=== PATIENT | female | born 1970 | race Caucasian/White ===

== ENCOUNTER 2016-04-01 11:35 | Inpatient (IN) | payer OTHER, MEDICARE ==
[~2016-04-01] VITALS: Ht 162.6 cm; Wt 68.0 kg
[2016-04-01] VITALS (7 sets, daily range): BP systolic 114–145; BP diastolic 57–87; PULSE 82–122; RESP 12–19; TEMP 97.6–102.2; O2SAT 94–100
[~2016-04-01 11:35] MED LIST: BACT800T5 PO; CEPH500 PO; HYDR-3533 PO; VENL75 PO
[2016-04-01] MEDS ORDERED: VANCOMYCIN INJ 1,000 MG in SODIUM CHLOR 0.9% 250 ML INJ 250 ML IV ONE (13:15)
--- NOTE | 2016-04-01 13:24 | PD ---
HPI Chief Complaint: Fever Time Seen by Provider: 12:57 Travel History International Travel<30 days: No Contact w/Intl Traveler<30days: No Traveled to known affect area: No History of Present Illness HPI The patient was seen and examined in the presence of the nurse. This patient injects meth into her arms and hands for the last few months. She injected into her right hand a few days ago and has become hot and red and swollen and painful. She's developed fever. Severity is moderate. No alleviating factors. Duration 2 days. PFSH Past Medical History Asthma: Yes Depression: Yes Diminished Hearing: No Hypertension: Yes Musculoskeletal: Yes (CHRONIC NECK AND BACK PAIN) Neurologic: Yes (neuropathy) Immunizations Current: Yes ?: Not LMP: 04/01/16 Social History Alcohol Use: No Tobacco Use: Yes (03/31 ppd) Substance Use: Yes (iv dilaudid and methamphetamine) Allergies-Medications (Allergen,Severity, Reaction): Coded Allergies: Penicillin (Verified Allergy, Severe, 04/01/16) Uncoded Allergies: chemical allergy (Allergy, Severe, anaphalactic, 09/27/12) Reported Meds & Prescriptions Reported Meds & Active Scripts Active No Active Prescriptions or Reported Medications Review of Systems General / Constitutional: Positive: Fever Eyes: No: Visual changes HENT: No: Headaches Cardiovascular: Positive: Edema, No: Chest Pain or Discomfort Respiratory: No: Shortness of Breath Gastrointestinal: No: Abdominal Pain Genitourinary: No: Dysuria Musculoskeletal: Positive: Edema, Pain Skin: No Rash Neurologic: No: Weakness Psychiatric: No: Depression Endocrine: No: Polydipsia Hematologic/Lymphatic: No: Easy Bruising Physical Exam Narrative GENERAL: Well-nourished, well-developed patient with right hand infection. SKIN: Warm and dry. HEAD: Atraumatic. Normocephalic. EYES: Pupils equal and round. No scleral icterus. No injection or drainage. ENT: No nasal bleeding or discharge. Mucous membranes pink and moist. NECK: Trachea midline. No JVD. CARDIOVASCULAR: Regular rate and rhythm. No murmur appreciated. RESPIRATORY: No accessory muscle use. Clear to auscultation. Breath sounds equal bilaterally. GASTROINTESTINAL: Abdomen soft, non-tender, nondistended. Hepatic and splenic margins not palpable. MUSCULOSKELETAL: No clubbing. No cyanosis. She has diffuse swelling of the right hand. There is pain with passive and active flexion and extension of all 5 fingers. No drainage. Pulse and sensation and cap refill are intact. No and is tender. It is erythematous and warm. NEUROLOGICAL: Awake and alert. No obvious cranial nerve deficits. Motor grossly within normal limits. Normal speech. PSYCHIATRIC: Appropriate mood and affect; insight and judgment normal. Data Data Last Documented VS Vital Signs Date Time Temp Pulse Resp B/P Pulse Ox O2 Delivery O2 Flow Rate FiO2 04/01/16 14:15 99.2 96 18 145/87 100 Room Air Orders Complete Blood Count With Diff (04/01/16 13:09) Comprehensive Metabolic Panel (04/01/16 13:09) Prothrombin Time / Inr (Pt) (04/01/16 13:09) Act Partial Throm Time (Ptt) (04/01/16 13:09) Blood Culture (04/01/16 13:09) Blood Glucose (04/01/16 13:09) Ecg Monitoring (04/01/16 13:09) Iv Access Insert/Monitor (04/01/16 13:09) Oximetry (04/01/16 13:09) Oxygen Administration (04/01/16 13:09) Vancomycin Inj (Vancomycin Inj) (04/01/16 13:15) Acetaminophen Supp (Tylenol Supp) (04/01/16 14:45) Acetaminophen Supp (Tylenol Supp) (04/01/16 14:45) Us Arm Soft Tissue (04/01/16 ) Admit Order (Ed Use Only) (04/01/16 15:24) Labs Laboratory Tests Test 04/01/16 13:25 White Blood Count 13.1 TH/MM3 Red Blood Count 5.28 MIL/MM3 Hemoglobin 9.4 GM/DL Hematocrit 30.6 % Mean Corpuscular Volume 57.9 FL Mean Corpuscular Hemoglobin 17.9 PG Mean Corpuscular Hemoglobin 30.9 % Concent Red Cell Distribution Width 19.1 % Platelet Count 423 TH/MM3 Mean Platelet Volume 8.6 FL Neutrophils (%) (Auto) 83.7 % Lymphocytes (%) (Auto) 9.0 % Monocytes (%) (Auto) 6.9 % Eosinophils (%) (Auto) 0.1 % Basophils (%) (Auto) 0.3 % Neutrophils # (Auto) 11.0 TH/MM3 Lymphocytes # (Auto) 1.2 TH/MM3 Monocytes # (Auto) 0.9 TH/MM3 Eosinophils # (Auto) 0.0 TH/MM3 Basophils # (Auto) 0.0 TH/MM3 CBC Comment AUTO DIFF Differential Comment AUTO DIFF CONFIRMED Prothrombin Time 11.0 SEC Prothromb Time International 1.0 RATIO Ratio Activated Partial 28.5 SEC Thromboplast Time Sodium Level 133 MEQ/L Potassium Level 3.8 MEQ/L Chloride Level 98 MEQ/L Carbon Dioxide Level 26.2 MEQ/L Anion Gap 9 MEQ/L Blood Urea Nitrogen 14 MG/DL Creatinine 0.81 MG/DL Estimat Glomerular Filtration 77 ML/MIN Rate Random Glucose 78 MG/DL Calcium Level 8.9 MG/DL Total Bilirubin 0.7 MG/DL Aspartate Amino Transf 16 U/L (AST/SGOT) Alanine Aminotransferase 35 U/L (ALT/SGPT) Alkaline Phosphatase 111 U/L Total Protein 8.9 GM/DL Albumin 2.9 GM/DL MDM Medical Decision Making Medical Screen Exam Complete: Yes Emergency Medical Condition: Yes Medical Record Reviewed: Yes Differential Diagnosis Abscess, cellulitis, tenosynovitis Narrative Course I have reviewed the patient's electronic medical record. IV placed I gave her 1 g IV vancomycin after blood cultures were obtained 2 CBC shows minor leukocytosis and minor anemia Metabolic profile is normal LFTs are normal Coagulation studies are normal I gave her Tylenol suppositories, keeping her nothing by mouth until hand surgery evaluation I spoke with hand surgeon who recommended ultrasound be ordered to rule out fluid collection in the right hand and he will see her later today. I reviewed with hospitalist will admit Diagnosis Primary Impression: Infection of right hand Additional Impression: IV drug abuse Admitting Information Admitting Physician Requests: Admit Scripts No Active Prescriptions or Reported Meds Oral Stanley MD Apr 01, 2016 13:24
[2016-04-01 13:50] LABS: BASOPHIL % 0.3 % (0.0-2.0); EOSINOPHIL % 0.1 % (0.0-4.0); HEMATOCRIT 30.6 % (35.0-46.0); LYMPHOCYTE # 1.2 TH/MM3 (1.0-4.8); MEAN CELL VOLUME 57.9 FL (80.0-100.0); MEAN CORPUSCULAR HEMOGLOBIN 17.9 PG (27.0-34.0); MEAN CORPUSCULAR HGB CONC 30.9 % (32.0-36.0); MONO % 6.9 % (0.0-8.0); NEUT % 83.7 % (16.0-70.0); PLATELET COUNT 423 TH/MM3 (150-450); RED BLOOD COUNT 5.28 MIL/MM3 (4.00-5.30); RED CELL DISTRIBUTION WIDTH 19.1 % (11.6-17.2); WHITE BLOOD COUNT 13.1 TH/MM3 (4.0-11.0)
[2016-04-01 13:52] LABS: HEMO FLAGS AUTO DIFF
[2016-04-01 13:59] LABS: APTT (PATIENT) 28.5 SEC (24.3-30.1)
[2016-04-01 14:17] LABS: ALT (GPT) 35 U/L (10-53); ANION GAP 9 MEQ/L (5-15); AST (GOT) 16 U/L (15-37); BICARBONATE 26.2 MEQ/L (21.0-32.0); BLOOD UREA NITROGEN 14 MG/DL (7-18); CHLORIDE 98 MEQ/L (98-107); GLOMERULAR FILTRATION RATE 77 ML/MIN (>89); POTASSIUM 3.8 MEQ/L (3.5-5.1); SODIUM (NA) 133 MEQ/L (136-145)
[2016-04-01 14:20] LABS: ALKALINE PHOSPHATASE 111 U/L (45-117); TOTAL BILIRUBIN ADULT 0.7 MG/DL (0.2-1.0)
[2016-04-01 14:40] LABS: SCAN/DIFF AUTO DIFF CONFIRMED
[2016-04-01] MEDS ORDERED: ACETAMINOPHEN 325 MG SUPP RECTAL ONE (14:45)
[2016-04-01] MEDS ORDERED: ACETAMINOPHEN 650 MG SUPP RECTAL ONE (14:45)
--- NOTE | 2016-04-01 16:14 | RADRPT ---
EXAM DATE/TIME: 04/01/2016 15:23 [facility] COMPARISON: No previous studies available for comparison. INDICATIONS : IV drug use. Red, hot, and painful right hand. MEDICAL HISTORY : Chronic neck and back pain. Hypertension. IV drug use. SURGICAL HISTORY : No recorded surgical history. ENCOUNTER: Initial ACUITY: 3 days PAIN SCORE: 7/10 LOCATION: Right hand. AREA EVALUATED: Right hand. FINDINGS: There is edematous tissue in the right wrist and hand. No loculated fluid seen or drainable fluid col lections. CONCLUSION: 1. Soft tissue swelling and edematous changes at the back of the wrist and hand most characteristic o f a cellulitis. Oseas Lewis MD on April 01, 2016 at 16:10 Board Certified Radiologist. This report was verified electronically.
[2016-04-01] MEDS ORDERED: ONDANSETRON HCL 4 MG/2 ML VIAL IVP PRN (16:30)
[2016-04-01] MEDS ORDERED: SENNOSIDES 8.6 MG TAB PO PRN (16:30)
[2016-04-01] MEDS ORDERED: SODIUM CHLORIDE 0.9% FLUSH 5 ML FLUSH FLUSH PRN (16:30)
[2016-04-01] MEDS ORDERED: Vancomycin Consult Pharmacy 1 EA OTHER SCH (16:30)
[2016-04-01] MEDS ORDERED: ACETAMINOPHEN 325 MG TAB PO PRN ×2 (16:30)
[2016-04-01] MEDS ORDERED: NALOXONE HCL 0.4 MG/ML AMP IV PRN (16:30)
--- NOTE | 2016-04-01 16:40 | HHI.HP ---
[facility] Service [facility] Primary Care Physician Veronique Welsh MD Admission Diagnosis R hand infection Diagnoses: Chief Complaint: Right hand swelling and pain Travel History International Travel<30 Days: No Contact w/Intl Traveler <30 Da: No Traveled to Known Affected Are: No Sepsis Criteria SIRS Criteria (2 or more): Temp > 100.9 or < 96.8, Heart rate over 90 Sepsis Criteria (SIRS+source): Infect source susp/known Criteria Outcome: Meets sepsis criteria History of Present Illness The patient is a 45-year-old female with a past medical history of chronic pain who is presenting to the hospital with right hand pain and swelling. The patient says over the past 6 months she started taking up IV drug use, including IV meth and IV Dilaudid. She says she has been injecting her hands. She says the last time she used IV drugs was 4 days ago. Over the past few days she has noticed her right hand becoming more and more swollen, red and painful. She says the pain is a 10 out of 10 in severity and that's why she came to the hospital today. She has felt feverish associated with it. She denies any shortness of breath. She says she has made the decision to try to quit using IV drugs. She says she started using IV drugs 6 months ago and that was because she lost her house and had to deal with chronic pain amongst other issues. She says she was homeless for a while but is now staying at a friend's house, but that friend also uses drugs. The patient is inquiring if she can eat anything. The patient also mentions that she has had sores pop up all over her body since she started using IV meth. Review of Systems Constitutional: COMPLAINS OF: Fever, Chills Respiratory: DENIES: Shortness of breath Musculoskeletal: COMPLAINS OF: Joint pain, Joint Swelling, Neck pain Integumentary: COMPLAINS OF: Abnormal pigmentation, Rash Neurologic: COMPLAINS OF: Paresthesias Past Family Social History Past Medical History Cervical fusion IV drug use Allergies: Coded Allergies: Penicillin (Verified Allergy, Severe, 04/01/16) Uncoded Allergies: chemical allergy (Allergy, Severe, anaphalactic, 09/27/12) Family History Lung cancer Breast cancer Social History The patient is staying at a friend's house. She smokes 5-10 cigarettes daily. She does not drink alcohol. She injects IV meth and Dilaudid. Physical Exam Vital Signs Vital Signs Date Time Temp Pulse Resp B/P Pulse Ox O2 Delivery O2 Flow Rate FiO2 04/01/16 14:15 99.2 96 18 145/87 100 Room Air 04/01/16 11:37 102.2 122 12 125/78 99 Room Air Physical Exam GENERAL: Well-nourished, well-developed patient. SKIN: Warm and dry. Multiple sores on the upper and lower extremities. HEAD: Atraumatic. Normocephalic. EYES: Pupils equal and round. No scleral icterus. No injection or drainage. ENT: No nasal bleeding or discharge. Mucous membranes pink and moist. NECK: Trachea midline. No JVD. CARDIOVASCULAR: Regular rate and rhythm. Grade 1 systolic murmur appreciated. RESPIRATORY: No accessory muscle use. Clear to auscultation. Breath sounds equal bilaterally. GASTROINTESTINAL: Abdomen soft, non-tender, nondistended. Hepatic and splenic margins not palpable. MUSCULOSKELETAL: No clubbing. No cyanosis. She has diffuse swelling of the right hand. There is pain with passive and active flexion and extension of all 5 fingers. No drainage. Pulse and sensation and cap refill are intact. Her hand is quite tender. It is erythematous and warm. NEUROLOGICAL: Awake and alert. No obvious cranial nerve deficits. Motor grossly within normal limits. Normal speech. PSYCHIATRIC: Appropriate mood and affect; insight and judgment normal. Laboratory Laboratory Tests Test 04/01/16 13:25 White Blood Count 13.1 Red Blood Count 5.28 Hemoglobin 9.4 Hematocrit 30.6 Mean Corpuscular Volume 57.9 Mean Corpuscular Hemoglobin 17.9 Mean Corpuscular Hemoglobin 30.9 Concent Red Cell Distribution Width 19.1 Platelet Count 423 Mean Platelet Volume 8.6 Neutrophils (%) (Auto) 83.7 Lymphocytes (%) (Auto) 9.0 Monocytes (%) (Auto) 6.9 Eosinophils (%) (Auto) 0.1 Basophils (%) (Auto) 0.3 Neutrophils # (Auto) 11.0 Lymphocytes # (Auto) 1.2 Monocytes # (Auto) 0.9 Eosinophils # (Auto) 0.0 Basophils # (Auto) 0.0 CBC Comment AUTO DIFF Differential Comment AUTO DIFF CONFIRMED Prothrombin Time 11.0 Prothromb Time International 1.0 Ratio Activated Partial 28.5 Thromboplast Time Sodium Level 133 Potassium Level 3.8 Chloride Level 98 Carbon Dioxide Level 26.2 Anion Gap 9 Blood Urea Nitrogen 14 Creatinine 0.81 Estimat Glomerular Filtration 77 Rate Random Glucose 78 Calcium Level 8.9 Total Bilirubin 0.7 Aspartate Amino Transf 16 (AST/SGOT) Alanine Aminotransferase 35 (ALT/SGPT) Alkaline Phosphatase 111 Total Protein 8.9 Albumin 2.9 Date/Time Procedure Status Source Growth 04/01/16 13:30 Aerobic Blood Culture Received Blood Peripheral Pending 04/01/16 13:30 Anaerobic Blood Culture Received Blood Peripheral Pending Result Diagram: 04/01/16 1325 04/01/16 1325 Assessment and Plan Assessment and Plan Sepsis/ Right hand infection S/t injecting hand with IV drugs. Hand surgery was called by the ED physician. - continue vancomycin. - follow up with hand surgery. Pt is NPO at this time. - IVFs, pain control with a bowel regimen. - OT for range of motion. Microcytic anemia With elevated RDW. Likely iron deficiency anemia. - check B12, folate and iron studies. - Hemoccult requested. IV drug use For the past 6 months. The pt says she wishes to quit. - cessation instruction. - case manager specialist consult. HTN Likely s/t pain. - pain control. - Vasotec as needed. PPx: SCDs. Code Status Full. Discussed Condition With Pt, Dr. Stanley, nurse. Physician Certification 2 Midnight Certification Type: Admission for Inpatient Services Order for Inpatient Services The services are ordered in accordance with Medicare regulations or non- Medicare payer requirements, as applicable. In the case of services not specified as inpatient-only, they are appropriately provided as inpatient services in accordance with the 2-midnight benchmark. Estimated LOS (days): 2 days is the estimated time the patient will need to remain in the hospital, assuming treatment plan goals are met and no additional complications. Post-Hospital Plan: Home Reginald Houser DO Apr 01, 2016 16:40
[2016-04-01] MEDS ORDERED: ENALAPRILAT 1.25 MG/ML VIAL IV PUSH PRN (17:00)
[2016-04-01] MEDS: MORPHINE SULFATE 4 MG/ML INJ IV PRN (17:15)
[2016-04-01] MEDS: SODIUM CHLOR 0.9% 1000 ML INJ 1,000 ML IV SCH (17:15)
[2016-04-01] MEDS: DOCUSATE SODIUM 100 MG CAP PO SCH (18:00)
[2016-04-01 18:54] LABS: FERRITIN 18 NG/ML (8-252); TRANSFERRIN IRON PROFILE 338 MG/DL (200-360)
--- NOTE | 2016-04-01 18:56 | MB ---
cc: JANY CARMONA MD DATE OF CONSULTATION: 04/01/2016 REASON FOR CONSULTATION: Right hand and wrist infection. HISTORY OF PRESENT ILLNESS: The patient is a 45-year-old female who presented to the hospital with complaints of pain involving the right wrist and hand region of several days duration. The patient states she started using IV drugs several months ago and the last time she used was 4 days ago. The patient states over the past few days she has noticed worsening pain, swelling and limitation of range of motion of her fingers. Denies any numbness. Denies any chills or rigors. Denies any drainage. The patient also states after the start of IV antibiotics she has improvement in her pain symptoms. PAST MEDICAL HISTORY, PAST SURGICAL HISTORY: Noted. PHYSICAL EXAMINATION: The patient is alert, oriented x3. EXTREMITIES: Examination of right upper extremities reveals multiple band-aids, abrasions. There are multiple track wounds from previous IV drug abuse over the dorsal aspect of her hand and forearm. There is evidence of swelling over the dorsal aspect of the hand and wrist and tenderness noted over the dorsal aspect of the hand and wrist. There is also evidence of tenderness more so on the ulnar aspect of the dorsal hand and over the dorsal lateral aspect of the distal forearm. No evidence of fluctuation noted. Increased warmth noted. Range of motion of her fingers limited and painful but she states this has improved after IV antibiotics. She has intact distal circulation, intact distal sensation. She had ultrasound of the right upper extremity which shows evidence of soft tissue swelling and erythematous changes, most characteristic of cellulitis. There is no evidence of drainable collection. LABORATORY DATA: White count of 13.1 and shift of 83%. ASSESSMENT The patient is a 45-year-old female with history of IV drug abuse with cellulitis dorsal aspect of her hand and forearm. PLAN: The plan will be to keep the limb elevated. Continue with IV antibiotics. Hand surgery will follow closely. Jany Carmona MD SE/ROSITA /6:03 PM /6:43 PM ZARIA
[2016-04-01] MEDS: SODIUM CHLORIDE 0.9% FLUSH 5 ML FLUSH FLUSH SCH (20:30)
[2016-04-02] MEDS: VANCOMYCIN INJ 1,000 MG in SODIUM CHLOR 0.9% 250 ML INJ 250 ML IV SCH ×2 (02:28→12:41)
[2016-04-02] MEDS: SODIUM CHLOR 0.9% 1000 ML INJ 1,000 ML IV SCH ×2 (02:28→17:45)
[2016-04-02] MEDS: MORPHINE SULFATE 4 MG/ML INJ IV PRN ×4 (02:31→20:32)
[2016-04-02] MEDS: DOCUSATE SODIUM 100 MG CAP PO SCH ×2 (05:01→17:47)
[2016-04-02 06:55] LABS: AUTOMATED NEUTROPHIL # 5.9 TH/MM3 (1.8-7.7); BASOPHIL % 0.3 % (0.0-2.0); EOSINOPHIL # 0.1 TH/MM3 (0-0.4); EOSINOPHIL % 1.2 % (0.0-4.0); HEMATOCRIT 24.6 % (35.0-46.0); LYMPH % 19.1 % (9.0-44.0); LYMPHOCYTE # 1.6 TH/MM3 (1.0-4.8); MEAN CELL VOLUME 57.7 FL (80.0-100.0); MEAN CORPUSCULAR HEMOGLOBIN 18.1 PG (27.0-34.0); MEAN CORPUSCULAR HGB CONC 31.3 % (32.0-36.0); MONO % 9.2 % (0.0-8.0); NEUT % 70.2 % (16.0-70.0); PLATELET COUNT 357 TH/MM3 (150-450); RED BLOOD COUNT 4.26 MIL/MM3 (4.00-5.30); RED CELL DISTRIBUTION WIDTH 19.3 % (11.6-17.2); WHITE BLOOD COUNT 8.5 TH/MM3 (4.0-11.0)
[2016-04-02 07:07] LABS: HEMO FLAGS AUTO DIFF
[2016-04-02 07:20] LABS: ALKALINE PHOSPHATASE 81 U/L (45-117); ALT (GPT) 21 U/L (10-53); ANION GAP 7 MEQ/L (5-15); AST (GOT) 10 U/L (15-37); BICARBONATE 26.7 MEQ/L (21.0-32.0); BLOOD UREA NITROGEN 11 MG/DL (7-18); CHLORIDE 104 MEQ/L (98-107); GLOMERULAR FILTRATION RATE 115 ML/MIN (>89); POTASSIUM 3.7 MEQ/L (3.5-5.1); SODIUM (NA) 138 MEQ/L (136-145); TOTAL BILIRUBIN ADULT 0.4 MG/DL (0.2-1.0)
[2016-04-02 07:56] LABS: PLATELET MORPHOLOGY ENLARGED (NORMAL); SCAN/DIFF AUTO DIFF CONFIRMED
[2016-04-02 08:00] VITALS: BP 106/54; PULSE 84; RESP 17; TEMP 100; O2SAT 96
[2016-04-02] MEDS: SODIUM CHLORIDE 0.9% FLUSH 5 ML FLUSH FLUSH SCH ×2 (08:57→20:31)
[2016-04-02 12:00] VITALS: BP 129/83; PULSE 89; RESP 17; TEMP 98.8; O2SAT 95
[2016-04-02 16:00] VITALS: BP 111/73; PULSE 93; RESP 18; TEMP 97.9; O2SAT 99
--- NOTE | 2016-04-02 17:02 | HHI.PR ---
Subjective Remarks The patient complained of significant pain in her right hand. She says some of the blisters popped and there was some greenish ooze. The patient otherwise had no acute complaints. Discussed with nursing. Objective Vitals Vital Signs Date Time Temp Pulse Resp B/P Pulse Ox O2 Delivery O2 Flow Rate FiO2 04/02/16 16:00 97.9 93 18 111/73 99 04/02/16 12:00 98.8 89 17 129/83 95 04/02/16 08:00 100.0 84 17 106/54 96 04/01/16 23:59 98.4 100 18 117/65 98 04/01/16 20:00 97.6 98 19 136/84 94 04/01/16 18:30 98.5 82 16 135/65 100 Room Air 04/01/16 17:00 99.0 95 18 126/78 99 Room Air I/O 04/01/16 04/01/16 04/01/16 04/02/16 04/02/16 04/02/16 06:59 14:59 22:59 06:59 14:59 22:59 Intake Total 360 ml 1613 ml 1114 ml Output Total 300 ml 350 ml 300 ml Balance 60 ml 1263 ml 814 ml Intake Oral 360 ml 360 ml 360 ml IV Total 1253 ml 754 ml Output Urine Total 300 ml 350 ml 300 ml # Bowel Movements 0 0 0 Result Diagram: 04/02/16 0450 04/02/16 0450 Imaging Last Impressions Upper Extremity Ultrasound 04/01/16 0000 Signed Impressions: Service Date/Time: Friday, April 01, 2016 15:23 - CONCLUSION: 1. Soft tissue swelling and edematous changes at the back of the wrist and hand most characteristic of a cellulitis. Oseas Lewis MD Objective Remarks GENERAL: Well-nourished, well-developed patient. SKIN: Warm and dry. Multiple sores on the upper and lower extremities. HEAD: Atraumatic. Normocephalic. EYES: Pupils equal and round. No scleral icterus. No injection or drainage. ENT: No nasal bleeding or discharge. Mucous membranes pink and moist. NECK: Trachea midline. No JVD. CARDIOVASCULAR: Regular rate and rhythm. Grade 1 systolic murmur appreciated. RESPIRATORY: No accessory muscle use. Clear to auscultation. Breath sounds equal bilaterally. GASTROINTESTINAL: Abdomen soft, non-tender, nondistended. Hepatic and splenic margins not palpable. MUSCULOSKELETAL: No clubbing. No cyanosis. She has diffuse swelling of the right hand. Multiple blisters noted. There is pain with passive and active flexion and extension of all 5 fingers. Pulse and sensation and cap refill are intact. Her hand is quite tender. It is erythematous and warm. NEUROLOGICAL: Awake and alert. No obvious cranial nerve deficits. Motor grossly within normal limits. Normal speech. PSYCHIATRIC: Appropriate mood and affect; insight and judgment normal. Medications and IVs Current Medications Medications (Trade) Dose Ordered Sig/Declan Route Start Time Stop Time Status Last Admin Pharmacy Profile Note 0 ml @ 0 mls/hr UNSCH OTHER 04/01/16 16:30 (Vancomycin Inj/ NS 250 ml Inj) 250 ml @ 250 mls/hr Q12H IV 04/02/16 02:00 04/02/16 12:41 (NS Flush) 2 ml UNSCH PRN FLUSH 04/01/16 16:30 (NS Flush) 2 ml BID FLUSH 04/01/16 21:00 04/02/16 08:57 (Tylenol) 650 mg Q4H PRN PO 04/01/16 16:30 (Zofran Inj) 4 mg Q6H PRN IVP 04/01/16 16:30 (Colace) 100 mg Q12H PO 04/01/16 18:00 04/02/16 05:01 (Senokot) 17.2 mg Q12H PRN PO 04/01/16 16:30 (Tylenol) 650 mg Q6H PRN PO 04/01/16 16:30 (Roxicodone) 10 mg Q4H PRN PO 04/01/16 16:30 04/02/16 13:38 (Morphine Inj) 2 mg Q4H PRN IV 04/01/16 16:30 04/02/16 16:21 (Roxicodone) 5 mg Q4H PRN PO 04/01/16 16:30 (Narcan Inj) 0.4 mg UNSCH PRN IV 04/01/16 16:30 (Vasotec Inj) 1.25 mg Q6H PRN IV PUSH 04/01/16 17:00 Miscellaneous Information SPECIFIC LAB TO BE DRAWN:[facility] DATE TO BE .. ONCE ONCE XX 1/5/17 01:45 04/03/16 01:46 A/P Assessment and Plan Sepsis/ Right hand infection S/t injecting hand with IV drugs. Hand surgery was called by the ED physician. - continue vancomycin. - follow up with hand surgery. No surgical intervention indicated at this time. Will order CT of the hand/wrist to further evaluate. - IVFs, pain control with a bowel regimen. - OT for range of motion. Microcytic anemia Iron deficiency anemia confirmed by labs. - Hemoccult requested. - follow CBC. IV drug use For the past 6 months. The pt says she wishes to quit. - cessation instruction. - rn case mgr consult. HTN Likely s/t pain. - pain control. - Vasotec as needed. PPx: SCDs. Discharge Planning Awaiting clinical improvement. Reginald Houser DO Apr 02, 2016 17:02
--- NOTE | 2016-04-02 17:08 | HHI.PR ---
Subjective Remarks complains of pain over the right hand and wrist region also complains of fever able to eat and sleep Objective Vital Signs Date Time Temp Pulse Resp B/P Pulse Ox O2 Delivery O2 Flow Rate FiO2 04/02/16 16:00 97.9 93 18 111/73 99 04/02/16 12:00 98.8 89 17 129/83 95 04/02/16 08:00 100.0 84 17 106/54 96 04/01/16 23:59 98.4 100 18 117/65 98 04/01/16 20:00 97.6 98 19 136/84 94 04/01/16 18:30 98.5 82 16 135/65 100 Room Air I/O 04/01/16 04/01/16 04/01/16 04/02/16 04/02/16 04/02/16 07:00 15:00 23:00 07:00 15:00 23:00 Intake Total 360 ml 1613 ml 1114 ml Output Total 300 ml 350 ml 300 ml Balance 60 ml 1263 ml 814 ml Intake Oral 360 ml 360 ml 360 ml IV Total 1253 ml 754 ml Output Urine Total 300 ml 350 ml 300 ml # Bowel Movements 0 0 0 left upper extremity: multiple scabs and pin tract inflammation swelling over the dorsal aspect of the hand, wrist and forearm region tenderness noted over the region questionable fluctuation over the dorso ulnar aspect of the hand and dorsoradial aspect of the distal forearm range of motion of the wrist is painful and limited intact sensation distally able to make a fist, terminal degrees of flexion painful Laboratory Tests Test 04/01/16 04/02/16 13:25 04:50 White Blood Count 13.1 TH/MM3 (4.0-11.0) Hemoglobin 9.4 GM/DL 7.7 GM/DL (11.6-15.3) (11.6-15.3) Hematocrit 30.6 % 24.6 % (35.0-46.0) (35.0-46.0) Mean Corpuscular Volume 57.9 FL 57.7 FL (80.0-100.0) (80.0-100.0) Mean Corpuscular Hemoglobin 17.9 PG 18.1 PG (27.0-34.0) (27.0-34.0) Mean Corpuscular Hemoglobin 30.9 % 31.3 % Concent (32.0-36.0) (32.0-36.0) Red Cell Distribution Width 19.1 % 19.3 % (11.6-17.2) (11.6-17.2) Neutrophils (%) (Auto) 83.7 % 70.2 % (16.0-70.0) (16.0-70.0) Neutrophils # (Auto) 11.0 TH/MM3 (1.8-7.7) Sodium Level 133 MEQ/L (136-145) Estimat Glomerular Filtration 77 ML/MIN (>89) Rate Total Protein 8.9 GM/DL (6.4-8.2) Albumin 2.9 GM/DL 2.1 GM/DL (3.4-5.0) (3.4-5.0) Iron Level 18 MCG/DL (50-170) Total Iron Binding Capacity 473 MCG/DL (250-450) Percent Iron Saturation 3.8 % (20-50) Monocytes (%) (Auto) 9.2 % (0.0-8.0) Platelet Morphology Comment ENLARGED (NORMAL) Calcium Level 7.7 MG/DL (8.5-10.1) Aspartate Amino Transf 10 U/L (15-37) (AST/SGOT) Microbiology Date/Time Procedure Status Source Growth 04/02/16 14:51 Aerobic Blood Culture Received Blood Peripheral Pending 04/02/16 14:51 Anaerobic Blood Culture Received Blood Peripheral Pending 04/02/16 14:56 Aerobic Blood Culture Received Blood Peripheral Pending 04/02/16 14:56 Anaerobic Blood Culture Received Blood Peripheral Pending Result Diagram: 04/02/16 0450 04/02/16 0450 Assessment and Plan Assessment and Plan 45 year old female with iv drug abuse, cellulitis and questionable abscess left and wrist region Plan: keep the part elevated continue with iv antibiotics will obtain CT scan left hand/wrist/forearm to rule out collection hand surgery will follow. Yonathan Beth MD Apr 02, 2016 17:08
[2016-04-02] MEDS ORDERED: MORPHINE SULFATE 4 MG/ML INJ IV PUSH ONE (17:30)
[2016-04-02] MEDS ORDERED: IOHEXOL 350 MG/ML 10 ML VIAL (for RAD DIAG) IV ONE (18:33)
--- NOTE | 2016-04-02 18:56 | RADRPT ---
EXAM DATE/TIME: 04/02/2016 18:27 [facility] COMPARISON: No previous studies available for comparison. INDICATIONS : Right hand and wrist erythema and swelling; evaluate for abscess. IV CONTRAST: 81 cc Omnipaque 350 (iohexol) IV ; Cumulative dose for multiple exams. RADIATION DOSE: 11.61 CTDIvol (mGy) ; Combined studies MEDICAL HISTORY : Cardiovascular disease. Hypertension. Parasthesia. SURGICAL HISTORY : None. ENCOUNTER: Initial ACUITY: 2 days PAIN SCALE: 6/10 LOCATION: Right Wrist TECHNIQUE: Volumetric scanning of the wrist was performed. Using automated exposure control and adjustment of t he mA and/or kV according to patient size, radiation dose was kept as low as reasonably achievable to obtain optimal diagnostic quality images. FINDINGS: BONES: No evidence of fracture. Alignment is within normal limits. JOINTS: No evidence of joint narrowing or effusion. SOFT TISSUES: No abscess seen. Cellulitic changes. There is minimal thrombus within a vessel, could be artery. CONCLUSION: Cellulitic changes and minimal thrombus within branching vessel possibly representing artery or vein. Yvan Sebastian MD on April 02, 2016 at 18:43 Board Certified Radiologist. This report was verified electronically.
--- NOTE | 2016-04-02 19:10 | RADRPT ---
EXAM DATE/TIME: 04/02/2016 18:27 [place] COMPARISON: No previous studies available for comparison. INDICATIONS : Right hand and wrist erythema and swelling; evaluate for abscess. IV CONTRAST: 81 cc Omnipaque 350 (iohexol) IV ; Cumulative dose for multiple exams. RADIATION DOSE: 11.61 CTDIvol (mGy) ; Combined studies MEDICAL HISTORY : Cardiovascular disease. Hypertension. Parasthesia. SURGICAL HISTORY : None. ENCOUNTER: Initial ACUITY: 2 days PAIN SCALE: 4/10 LOCATION: Right hand TECHNIQUE: Volumetric scanning of the hand was performed. Using automated exposure control and adjustment of th e mA and/or kV according to patient size, radiation dose was kept as low as reasonably achievable to obtain optimal diagnostic quality images. FINDINGS: BONES: No evidence of fracture. Alignment is within normal limits. JOINTS: No evidence of joint narrowing or effusion. SOFT TISSUES: Cellulitic changes. No abscess or fluid collection. There is a thrombus seen within the central aspec t of vessels seen along the dorsal aspect of the wrist No foreign body. CONCLUSION: 1. Cellulitic changes. 2. Small thrombus within a vessel along the dorsal aspect of the wrist. Yvan Sebastian MD on April 02, 2016 at 19:05 Board Certified Radiologist. This report was verified electronically.
[2016-04-02 20:00] VITALS: BP 138/77; PULSE 112; RESP 18; TEMP 99; O2SAT 96
[2016-04-03 00:12] VITALS: BP 111/58; PULSE 98; RESP 18; TEMP 99; O2SAT 96
[2016-04-03] MEDS: SODIUM CHLOR 0.9% 1000 ML INJ 1,000 ML IV SCH ×3 (01:00→17:30)
[2016-04-03] MEDS ORDERED: PHARMACY ORDERED LAB XX ONE (01:45)
[2016-04-03] MEDS: MORPHINE SULFATE 4 MG/ML INJ IV PRN ×3 (01:57→11:43)
[2016-04-03] MEDS: VANCOMYCIN INJ 1,000 MG in SODIUM CHLOR 0.9% 250 ML INJ 250 ML IV SCH ×3 (01:59→17:40)
[2016-04-03] MEDS: DOCUSATE SODIUM 100 MG CAP PO SCH ×2 (05:03→17:39)
[2016-04-03 06:25] LABS: BICARBONATE 24.5 MEQ/L (21.0-32.0); MAGNESIUM 1.8 MG/DL (1.5-2.5); POTASSIUM 3.5 MEQ/L (3.5-5.1)
[2016-04-03 07:41] LABS: HEMATOCRIT 22.3 % (35.0-46.0); MEAN CELL VOLUME 58.1 FL (80.0-100.0); MEAN CORPUSCULAR HEMOGLOBIN 18.1 PG (27.0-34.0); MEAN CORPUSCULAR HGB CONC 31.2 % (32.0-36.0); PLATELET COUNT 294 TH/MM3 (150-450); RED BLOOD COUNT 3.84 MIL/MM3 (4.00-5.30); RED CELL DISTRIBUTION WIDTH 18.8 % (11.6-17.2); WHITE BLOOD COUNT 6.4 TH/MM3 (4.0-11.0)
[2016-04-03 07:43] LABS: REVIEW FLAG FINAL
[2016-04-03 08:00] VITALS: BP 111/53; PULSE 83; RESP 16; TEMP 98.1; O2SAT 98
[2016-04-03 12:00] VITALS: BP 108/54; PULSE 75; RESP 13; TEMP 98; O2SAT 97
--- NOTE | 2016-04-03 12:45 | HHI.PR ---
Subjective Remarks The patient was complaining of continued pain. She says that morphine makes her itchy and was requesting Dilaudid. She says that she does have better range of motion in her right hand and she does feel that the pain is overall better. She mentioned she had painful areas underneath her armpits that she wanted evaluated. Objective Vitals Vital Signs Date Time Temp Pulse Resp B/P Pulse Ox O2 Delivery O2 Flow Rate FiO2 04/03/16 08:00 98.1 83 16 111/53 98 04/03/16 00:12 99.0 98 18 111/58 96 04/02/16 20:00 99.0 112 18 138/77 96 04/02/16 20:00 99.0 112 18 138/77 96 04/02/16 16:00 97.9 93 18 111/73 99 I/O 04/02/16 04/02/16 04/02/16 04/03/16 04/03/16 04/03/16 07:00 15:00 23:00 07:00 15:00 23:00 Intake Total 1613 ml 1114 ml 686 ml 1097 ml Output Total 350 ml 300 ml 300 ml 350 ml Balance 1263 ml 814 ml 386 ml 747 ml Intake Oral 360 ml 360 ml 360 ml 360 ml IV Total 1253 ml 754 ml 326 ml 737 ml Output Urine Total 350 ml 300 ml 300 ml 350 ml # Bowel Movements 0 0 0 0 Result Diagram: 04/03/16 0550 04/03/16 0550 Imaging Last Impressions Upper Extremity CT 04/02/16 1743 Signed Impressions: Service Date/Time: Saturday, April 02, 2016 18:27 - CONCLUSION: 1. Cellulitic changes. 2. Small thrombus within a vessel along the dorsal aspect of the wrist. Yvan Sebastian MD Upper Extremity Ultrasound 04/01/16 0000 Signed Impressions: Service Date/Time: Friday, April 01, 2016 15:23 - CONCLUSION: 1. Soft tissue swelling and edematous changes at the back of the wrist and hand most characteristic of a cellulitis. Oseas Lewis MD Objective Remarks GENERAL: Well-nourished, well-developed patient. SKIN: Warm and dry. Multiple sores on the upper and lower extremities. HEAD: Atraumatic. Normocephalic. EYES: Pupils equal and round. No scleral icterus. No injection or drainage. ENT: No nasal bleeding or discharge. Mucous membranes pink and moist. NECK: Trachea midline. No JVD. CARDIOVASCULAR: Regular rate and rhythm. Grade 1 systolic murmur appreciated. RESPIRATORY: No accessory muscle use. Clear to auscultation. Breath sounds equal bilaterally. GASTROINTESTINAL: Abdomen soft, non-tender, nondistended. Hepatic and splenic margins not palpable. MUSCULOSKELETAL: No clubbing. No cyanosis. She has diffuse swelling of the right hand. Multiple blisters noted. There is pain with passive and active flexion and extension of all 5 fingers. Pulse and sensation and cap refill are intact. Her hand is quite tender. It is erythematous and warm. NEUROLOGICAL: Awake and alert. No obvious cranial nerve deficits. Motor grossly within normal limits. Normal speech. PSYCHIATRIC: Appropriate mood and affect; insight and judgment normal. Medications and IVs Current Medications Medications (Trade) Dose Ordered Sig/Declan Route Start Time Stop Time Status Last Admin (Vancomycin Consult Pharmacy) 0 ml @ 0 mls/hr UNSCH OTHER 04/01/16 16:30 (NS Flush) 2 ml UNSCH PRN FLUSH 04/01/16 16:30 (NS Flush) 2 ml BID FLUSH 04/01/16 21:00 04/02/16 20:31 (Tylenol) 650 mg Q4H PRN PO 04/01/16 16:30 (Zofran Inj) 4 mg Q6H PRN IVP 04/01/16 16:30 (Colace) 100 mg Q12H PO 04/01/16 18:00 04/03/16 05:03 (Senokot) 17.2 mg Q12H PRN PO 04/01/16 16:30 (Tylenol) 650 mg Q6H PRN PO 04/01/16 16:30 (Roxicodone) 10 mg Q4H PRN PO 04/01/16 16:30 04/03/16 09:42 (Roxicodone) 5 mg Q4H PRN PO 04/01/16 16:30 (Narcan Inj) 0.4 mg UNSCH PRN IV 04/01/16 16:30 (Vasotec Inj) 1.25 mg Q6H PRN IV PUSH 04/01/16 17:00 Morphine Sulfate 4 mg 4 mg Q4H PRN IV 04/02/16 20:30 04/03/16 11:43 Sodium Chloride 1,000 ml @ 125 mls/hr Q8H IV 04/02/16 17:30 04/03/16 09:41 (Vancomycin Inj/ NS 250 ml Inj) 250 ml @ 250 mls/hr Q8H IV 04/03/16 10:00 04/03/16 09:41 Miscellaneous Information SPECIFIC LAB TO BE DRAWN:VANCOMYCIN TROUGH DATE TO... ONCE ONCE XX 04/04/16 09:45 04/04/16 09:46 (K-Lyte Cl Eff) 50 meq ONCE ONCE PO 04/03/16 13:00 04/03/16 13:01 A/P Assessment and Plan Sepsis/ Right hand infection S/t injecting hand with IV drugs. Hand surgery was called by the ED physician. CT of the wrist and forearm without obvious fluid collection. - continue vancomycin. - follow up with hand surgery. No surgical intervention indicated at this time. - IVFs, pain control with a bowel regimen. - OT for range of motion. Thrombus CT of the hand showed: Small thrombus within a vessel along the dorsal aspect of the wrist. - Symptomatic management as it is a superficial, distal thrombus. Microcytic anemia Iron deficiency anemia confirmed by labs. - Hemoccult requested. - follow CBC. Transfuse 1 unit 04/03/16. IV drug use For the past 6 months. The pt says she wishes to quit. - cessation instruction. - case manager specialist consult. HTN Likely s/t pain. - pain control. - Vasotec as needed. PPx: SCDs. Discharge Planning Awaiting clinical improvement. Reginald Houser DO Apr 03, 2016 12:45
[2016-04-03] MEDS ORDERED: POTASSIUM CHLORIDE 25 MEQ EFFERVESCENT TAB PO ONE (13:00)
[2016-04-03] MEDS: SODIUM CHLORIDE 0.9% FLUSH 5 ML FLUSH FLUSH SCH ×2 (14:03→20:47)
[2016-04-03] MEDS: HYDROmorphone HCL PF 1 MG/ML VIAL IV PUSH PRN ×2 (14:59→18:53)
[2016-04-03 16:00] VITALS: BP 141/66; PULSE 84; RESP 16; TEMP 100.1; O2SAT 100
[2016-04-03 20:00] VITALS: BP 123/59; PULSE 93; RESP 18; TEMP 97.4; O2SAT 99
[2016-04-04] VITALS (7 sets, daily range): BP systolic 110–154; BP diastolic 18–95; PULSE 75–92; RESP 15–20; TEMP 96–99.3; O2SAT 98–100
[2016-04-04] MEDS: HYDROmorphone HCL PF 1 MG/ML VIAL IV PUSH PRN ×6 (00:19→20:25)
[2016-04-04] MEDS: SODIUM CHLOR 0.9% 1000 ML INJ 1,000 ML IV SCH ×4 (02:00→20:24)
[2016-04-04] MEDS: VANCOMYCIN INJ 1,000 MG in SODIUM CHLOR 0.9% 250 ML INJ 250 ML IV SCH ×2 (02:01→09:54)
[2016-04-04] MEDS: DOCUSATE SODIUM 100 MG CAP PO SCH ×2 (05:17→17:26)
[2016-04-04] MEDS: PHARMACY ORDERED LAB XX ONE ×2 (07:11→09:45)
[2016-04-04 07:14] LABS: AUTOMATED NEUTROPHIL # 2.9 TH/MM3 (1.8-7.7); BASOPHIL % 0.7 % (0.0-2.0); EOSINOPHIL # 0.2 TH/MM3 (0-0.4); EOSINOPHIL % 4.4 % (0.0-4.0); LYMPH % 27.1 % (9.0-44.0); LYMPHOCYTE # 1.3 TH/MM3 (1.0-4.8); MEAN CORPUSCULAR HEMOGLOBIN 17.8 PG (27.0-34.0); MEAN CORPUSCULAR HGB CONC 30.7 % (32.0-36.0); MONO % 8.8 % (0.0-8.0); PLATELET COUNT 274 TH/MM3 (150-450); RED BLOOD COUNT 3.71 MIL/MM3 (4.00-5.30); RED CELL DISTRIBUTION WIDTH 18.7 % (11.6-17.2); WHITE BLOOD COUNT 4.9 TH/MM3 (4.0-11.0)
[2016-04-04 08:03] LABS: HEMO FLAGS AUTO DIFF
[2016-04-04 08:08] LABS: HEMATOCRIT 21.6 % (35.0-46.0)
[2016-04-04] MEDS: SODIUM CHLORIDE 0.9% FLUSH 5 ML FLUSH FLUSH SCH ×2 (08:38→20:26)
[2016-04-04 08:50] LABS: PLATELET ESTIMATE SMEAR NORMAL (NORMAL); PLATELET MORPHOLOGY NORMAL (NORMAL); SCAN/DIFF AUTO DIFF CONFIRMED
--- NOTE | 2016-04-04 08:53 | HHI.PR ---
Subjective Remarks The patient said that she woke up crampy. She thinks that her right arm is getting worse. She says the Dilaudid is better than the morphine because she is less itchy. She mentions that she has a history of thalassemia and is hesitant about receiving a blood transfusion. She also mentions that she has an upper back wound that has been present for the past 9 months. She associates it with her drug use. Discussed with nursing. Objective Vitals Vital Signs Date Time Temp Pulse Resp B/P Pulse Ox O2 Delivery O2 Flow Rate FiO2 04/04/16 08:00 97.5 76 15 115/57 98 04/04/16 00:00 99.3 92 18 124/60 100 04/03/16 20:00 97.4 93 18 123/59 99 04/03/16 16:00 100.1 84 16 141/66 100 04/03/16 12:00 98.0 75 13 108/54 97 I/O 04/03/16 04/03/16 04/03/16 04/04/16 04/04/16 04/04/16 07:00 15:00 23:00 07:00 15:00 23:00 Intake Total 1097 ml 720 ml 2118 ml 961 ml Output Total 350 ml Balance 747 ml 720 ml 2118 ml 961 ml Intake Oral 360 ml 720 ml 620 ml 360 ml IV Total 737 ml 1498 ml 601 ml Output Urine Total 350 ml # Voids 1 2 # Bowel Movements 0 0 0 Result Diagram: 04/04/16 0700 04/03/16 0550 Imaging Last Impressions Upper Extremity CT 04/02/16 1743 Signed Impressions: Service Date/Time: Saturday, April 02, 2016 18:27 - CONCLUSION: 1. Cellulitic changes. 2. Small thrombus within a vessel along the dorsal aspect of the wrist. Yvan Sebastian MD Upper Extremity Ultrasound 04/01/16 0000 Signed Impressions: Service Date/Time: Friday, April 01, 2016 15:23 - CONCLUSION: 1. Soft tissue swelling and edematous changes at the back of the wrist and hand most characteristic of a cellulitis. Oseas Lewis MD Objective Remarks GENERAL: Well-nourished, well-developed patient. SKIN: Warm and dry. Multiple sores on the upper and lower extremities. Wound at the upper back, about 3 cm in diameter. HEAD: Atraumatic. Normocephalic. EYES: Pupils equal and round. No scleral icterus. No injection or drainage. ENT: No nasal bleeding or discharge. Mucous membranes pink and moist. NECK: Trachea midline. No JVD. CARDIOVASCULAR: Regular rate and rhythm. Grade 1 systolic murmur appreciated. RESPIRATORY: No accessory muscle use. Clear to auscultation. Breath sounds equal bilaterally. GASTROINTESTINAL: Abdomen soft, non-tender, nondistended. Hepatic and splenic margins not palpable. MUSCULOSKELETAL: No clubbing. No cyanosis. She has diffuse swelling of the right hand, more focused on the forearm at this time. Multiple blisters noted. There is pain with passive and active flexion and extension of all 5 fingers. Pulse and sensation and cap refill are intact. Her hand is quite tender. It is erythematous and warm. NEUROLOGICAL: Awake and alert. No obvious cranial nerve deficits. Motor grossly within normal limits. Normal speech. PSYCHIATRIC: Slightly irritated. Medications and IVs Current Medications Medications (Trade) Dose Ordered Sig/Declan Route Start Time Stop Time Status Last Admin (Vancomycin Consult Pharmacy) 0 ml @ 0 mls/hr UNSCH OTHER 04/01/16 16:30 (NS Flush) 2 ml UNSCH PRN FLUSH 04/01/16 16:30 (NS Flush) 2 ml BID FLUSH 04/01/16 21:00 04/03/16 14:03 (Tylenol) 650 mg Q4H PRN PO 04/01/16 16:30 (Zofran Inj) 4 mg Q6H PRN IVP 04/01/16 16:30 (Colace) 100 mg Q12H PO 04/01/16 18:00 04/04/16 05:17 (Senokot) 17.2 mg Q12H PRN PO 04/01/16 16:30 (Tylenol) 650 mg Q6H PRN PO 04/01/16 16:30 (Roxicodone) 10 mg Q4H PRN PO 04/01/16 16:30 04/04/16 08:38 (Roxicodone) 5 mg Q4H PRN PO 04/01/16 16:30 (Narcan Inj) 0.4 mg UNSCH PRN IV 04/01/16 16:30 Enalaprilat 1.25 mg 1.25 mg Q6H PRN IV PUSH 04/01/16 17:00 Sodium Chloride 1,000 ml @ 125 mls/hr Q8H IV 04/02/16 17:30 04/04/16 02:00 (Vancomycin Inj/ NS 250 ml Inj) 250 ml @ 250 mls/hr Q8H IV 04/03/16 10:00 04/04/16 02:01 Miscellaneous Information SPECIFIC LAB TO BE DRAWN:VANCOMYCIN TROUGH DATE TO... ONCE ONCE XX 04/04/16 09:45 04/04/16 09:46 (Dilaudid Pf Inj) 0.5 mg Q4H PRN IV PUSH 04/03/16 12:45 04/04/16 05:20 A/P Assessment and Plan Sepsis/ Right hand infection S/t injecting hand with IV drugs. Hand surgery was called by the ED physician. CT of the wrist and forearm without obvious fluid collection. Blood cultures growing strep. - continue vancomycin. - follow up with hand surgery. No surgical intervention indicated at this time. - IVFs, pain control with a bowel regimen. - OT for range of motion. Back wound The pt states she had a blister that formed about 9 months s/t drug use. - wound culture. - wound nurse consult. Thrombus CT of the hand showed: Small thrombus within a vessel along the dorsal aspect of the wrist. - Symptomatic management as it is a superficial, distal thrombus. Thalassemia Iron deficiency anemia confirmed by labs. The pt states she has a history of thalassemia. At first hesitant to receive a blood transfusion but now willing. - Hemoccult requested. - follow CBC. Transfuse 1 unit 04/04/16. IV drug use For the past 6 months. The pt says she wishes to quit. - cessation instruction. - outpatient case manager consult. PPx: SCDs. Discharge Planning Awaiting clinical improvement. Reginald Houser DO Apr 04, 2016 08:53
--- NOTE | 2016-04-04 14:15 | PD.CONS ---
History of Present Illness Service Infectious disease Consult Requested By Dr Clifton Houser Reason for Consult Evaluate patient with strep bacteremia, has hand infection and back wound Primary Care Physician Veronique Welsh MD Diagnoses: History of Present Illness Patient seen and examined. Records reviewed. Patient is a 45-year-old female, presented to the hospital complaining of right hand pain and swelling. Patient started using IV drugs again probably more than 6 months now and she had been using IV meth and Dilaudid. According to her seeing objects mostly in her hands. About 4 days ago the last time she used drugs, she started developing redness and swelling as well as pain on her right hand. It had progressively worsened so she presented to the hospital for further evaluation and treatment. Patient also had some subjective fevers and felt chilly. There is been no sore throat or any respiratory complaint. No chest pain or shortness of breath. She denies any GI or urinary complaints. Current to the patient since she started using IV drugs, multiple sores had popped up in her body. She had one developed in her mid upper back probably about 8-9 months ago, and the wound is still fairly big, but has decreased in size. Since admission she has had some on and off fevers. Hand surgery saw the patient. Imaging studies did not show any evidence of fluid collection or abscess, but she's had some mention of some thrombosis in one of the vessels. 2 blood cultures on admission are now growing group A strep. Patient noted that she has developed more swelling on her right wrist. Infectious disease consultation has requested to evaluate the patient. Review of Systems Constitutional: COMPLAINS OF: Fever, Chills, DENIES: Change in appetite Eyes: DENIES: Eye pain Ears, nose, mouth, throat: DENIES: Nasal discharge, Oral lesions, Throat pain, Ear Pain, Running Nose, Sinus Pain, Odynophagia Respiratory: DENIES: Cough, Shortness of breath Cardiovascular: DENIES: Chest pain, Palpitations Gastrointestinal: DENIES: Abdominal pain, Diarrhea, Nausea, Vomiting Genitourinary: DENIES: Urinary frequency, Dysuria Musculoskeletal: COMPLAINS OF: Joint pain, Joint Swelling Integumentary: COMPLAINS OF: Rash Neurologic: DENIES: Headache, Localized weakness Past Family Social History Allergies: Coded Allergies: Penicillin (Verified Allergy, Severe, 04/01/16) Uncoded Allergies: chemical allergy (Allergy, Severe, anaphalactic, 09/27/12) Past Medical History Chronic pain Depression IVDU Past Surgical History Cervical fusion Active Ordered Medications Tylenol Colace Vasotec Dilaudid Zofran Oxycodone Senokot Vancomycin Social History She smokes 5-10 cigarettes daily. She does not drink alcohol. She injects IV meth and Dilaudid. Physical Exam Vital Signs Vital Signs Date Time Temp Pulse Resp B/P Pulse Ox O2 Delivery O2 Flow Rate FiO2 04/04/16 13:48 96.6 85 20 141/18 100 04/04/16 10:30 18 04/04/16 09:38 18 04/04/16 08:00 97.5 76 15 115/57 98 04/04/16 00:00 99.3 92 18 124/60 100 04/03/16 20:00 97.4 93 18 123/59 99 04/03/16 16:00 100.1 84 16 141/66 100 Physical Exam GENERAL: This is a well-nourished, well-developed female, awake and alert, not toxic appearing, not in respiratory distress. SKIN: Warm and dry. She has multiple scattered dry wounds with eschar in her UE and LE , and some in buttocks. She has hypopigmented macules in her UE and legs from previous insect bites. There is a large open wound in her mid upper back that is about 1.25 inch diameter with red base, no necrotic tissue and border seems raised, with no periwound redness. HEAD: Atraumatic. Normocephalic. No temporal or scalp tenderness. EYES: Farley conjunctivae, no petechia or hemorrhage. Pupils equal round and reactive. Extraocular motions intact. No scleral icterus. No injection or drainage. ENT: Nose without bleeding, or purulent drainage. Moist oral mucosa, she is edentulous, wearing upper dentures. Throat without erythema, or exudate. Uvula midline. Airway patent. NECK: Trachea midline. No JVD or lymphadenopathy. Supple, nontender, no meningeal signs. CARDIOVASCULAR: Regular rate and rhythm without murmurs, gallops, or rubs. RESPIRATORY: Clear to auscultation. Breath sounds equal bilaterally. No wheezes , rales, or rhonchi. GASTROINTESTINAL: Abdomen soft, non-tender, nondistended. Bowel sounds are present and normoactive. No hepato-splenomegaly, or palpable masses. No guarding. MUSCULOSKELETAL: Extremities lower without clubbing, cyanosis, or edema. No joint effusion, or edema noted. No calf tenderness. Negative Homans sign bilaterally. In her RUE - there is a fluctuant area about the size of a quarter on the dorsal aspect of her right hand. On her distal R forearm there is also an area of redness and swelling. The wrsit joint seems ok NEUROLOGICAL: Awake and alert. Cranial nerves II through XII intact. Motor and sensory grossly within normal limits. Five out of 5 muscle strength in all muscle groups. Normal speech. PSYCH: Normal affect, calm and cooperative LINE: PIV with no evidence of infection Laboratory Laboratory Tests Test 04/03/16 04/04/16 04/04/16 04/04/16 14:16 07:00 08:50 09:49 Blood Type A POSITIVE A POSITIVE White Blood Count 4.9 Red Blood Count 3.71 Hemoglobin 6.6 Hematocrit 21.6 Mean Corpuscular Volume 58.0 Mean Corpuscular Hemoglobin 17.8 Mean Corpuscular Hemoglobin 30.7 Concent Red Cell Distribution Width 18.7 Platelet Count 274 Mean Platelet Volume 8.5 Neutrophils (%) (Auto) 59.0 Lymphocytes (%) (Auto) 27.1 Monocytes (%) (Auto) 8.8 Eosinophils (%) (Auto) 4.4 Basophils (%) (Auto) 0.7 Neutrophils # (Auto) 2.9 Lymphocytes # (Auto) 1.3 Monocytes # (Auto) 0.4 Eosinophils # (Auto) 0.2 Basophils # (Auto) 0.0 CBC Comment AUTO DIFF Differential Comment AUTO DIFF CONFIRMED Platelet Estimate NORMAL Platelet Morphology Comment NORMAL Crossmatch Leukocyte-Reduced Red Blood Cells Blood Bank Comment Vancomycin Level Trough 11.5 Date/Time Procedure Status Source Growth 04/04/16 10:28 Gram Stain Received Wound Back Pending 04/04/16 10:28 Wound Culture Received Wound Back Pending 04/02/16 14:56 Aerobic Blood Culture - Preliminary Resulted Blood Peripheral NO GROWTH IN 2 DAYS 04/02/16 14:56 Anaerobic Blood Culture - Preliminary Resulted Blood Peripheral NO GROWTH IN 2 DAYS 04/01/16 13:30 Aerobic Blood Culture - Final Complete Blood Peripheral Group A Beta Strep 04/01/16 13:30 Anaerobic Blood Culture - Final Complete Group A Beta Strep Result Diagram: 04/04/16 0700 04/03/16 0550 Imaging RADIOLOGY STUDIES/FILMS REVIEWED Upper Extremity CT 04/02/16 1743 Signed Impressions: Service Date/Time: Saturday, April 02, 2016 18:27 - CONCLUSION: 1. Cellulitic changes. 2. Small thrombus within a vessel along the dorsal aspect of the wrist. Yvan Sebastian MD Upper Extremity Ultrasound 04/01/16 0000 Signed Impressions: Service Date/Time: Friday, April 01, 2016 15:23 - CONCLUSION: 1. Soft tissue swelling and edematous changes at the back of the wrist and hand most characteristic of a cellulitis. Oseas Lewis MD Assessment and Plan Assessment and Plan IMPRESSION Strep pyogenes bacteremia due to infection R hand and R forearm, from IVDU - has thrombus seen in vessels, seen on CT and US Known IVDU Chronic wound upper mid back, etiology? Hives with PCN, but she has tolerated Keflex in the past RECOMMENDATION IV Ancef D/C other Abx May need I and D of infection on hand May need reeval of her forearm, if with septic phlebitis, she may need excision of the infected vein Follow C/S Monitor progress I will determine course of Rx depending of results or work-up I will follow along with you Thank you for this consultation Consuelo Martin MD Apr 04, 2016 14:15
[2016-04-04] MEDS: ceFAZolin 2 GM PREMIX 50 ML IV SCH ×3 (15:10→22:56)
--- NOTE | 2016-04-04 15:16 | PD.CONS ---
Provisional Diagnosis Admission Date Apr 01, 2016 at 15:25 [place]. Substance induced mood disorder, amphetamines is a History of Present Illness Service Psychiatry Consult Requested By Primary Care Physician Veronique Welsh MD HPI The patient is a 45-year-old woman, domiciled with her in [place], unemployed, without any previous psychiatric history, no previous psychiatric hospitalizations, no previous suicidal attempts, IV drug use history ,past medical history of chronic pain who is presenting to the hospital with right hand pain and swelling. The patient says over the past 6 months she started taking up IV drug use, including IV meth and IV Dilaudid. Patient was admitted in the hospital due to anemia, sepsis and right hand cellulitis. On psychiatric evaluation today patient was calm and cooperative, she is states that she is motivated to continue medical treatment and after dc going to medical terminologist outpatient rehabilitation and stopping drugs. she now denies depression, anxiety, rashaad and perceptual disturbances. She denies SI and HI. She says her life has been miserable in the last years due to drugs use and she is committed to stop. she reported good Sleep appetite and level of concentration. She denies VH/AH. She is orientedX3. Patient started using drugs after a neck surgery and been presented with opiates, with a year was more difficult to get prescription for opiates, she is started using IV heroine and IV crystal meth. In the last year she has been using mostly crystal meth every day. Patient states that drugs has affected her life widely, she was a wealthy person in the past, and now she doesn't even have a job. Review of Systems Constitutional: DENIES: Diaphoretic episodes, Fatigue, Fever, Weight gain, Weight loss, Chills, Dizziness, Change in appetite, Night Sweats Endocrine: DENIES: Abnorml menstrual pattern, Heat/cold intolerance, Polydipsia , Polyuria, Polyphagia Eyes: DENIES: Blurred vision, Diplopia, Eye inflammation, Eye pain, Vision loss , Photosensitivity, Double Vision Ears, nose, mouth, throat: DENIES: Tinnitus, Hearing loss, Vertigo, Nasal discharge, Oral lesions, Throat pain, Hoarseness, Ear Pain, Running Nose, Epistaxis, Sinus Pain, Toothache, Odynophagia Respiratory: DENIES: Apneas, Cough, Snoring, Wheezing, Hemoptysis, Sputum production, Shortness of breath Cardiovascular: DENIES: Chest pain, Palpitations, Syncope, Dyspnea on Exertion , PND, Lower Extremity Edema, Orthopnea, Claudication Gastrointestinal: DENIES: Abdominal pain, Black stools, Bloody stools, Constipation, Diarrhea, Nausea, Vomiting, Difficulty Swallowing, Anorexia Genitourinary: DENIES: Abnormal vaginal bleeding, Dysmenorrhea, Dyspareunia, Sexual dysfunction, Urinary frequency, Urinary incontinence, Urgency, Hematuria , Dysuria, Nocturia, Vaginal discharge Musculoskeletal: COMPLAINS OF: Muscle aches, Joint Swelling, Neck pain Hematologic/lymphatic: DENIES: Bruising, Lymphadenopathy Immunologic/allergic: DENIES: Eczema, Urticaria Psychiatric: DENIES: Anxiety, Confusion, Mood changes, Depression, Hallucinations, Agitation, Suicidal Ideation, Homicidal Ideation, Delusions Past Family Social History Coded Allergies: Penicillin (Verified Allergy, Severe, 04/01/16) Uncoded Allergies: chemical allergy (Allergy, Severe, anaphalactic, 09/27/12) No Active Prescriptions or Reported Meds Current Medications Medications (Trade) Dose Ordered Sig/Declan Route Start Time Stop Time Status Last Admin (Vancomycin Consult Pharmacy) 0 ml @ 0 mls/hr UNSCH OTHER 04/01/16 16:30 (NS Flush) 2 ml UNSCH PRN FLUSH 04/01/16 16:30 (NS Flush) 2 ml BID FLUSH 04/01/16 21:00 04/03/16 14:03 (Tylenol) 650 mg Q4H PRN PO 04/01/16 16:30 (Zofran Inj) 4 mg Q6H PRN IVP 04/01/16 16:30 (Colace) 100 mg Q12H PO 04/01/16 18:00 04/04/16 05:17 (Senokot) 17.2 mg Q12H PRN PO 04/01/16 16:30 (Tylenol) 650 mg Q6H PRN PO 04/01/16 16:30 (Roxicodone) 10 mg Q4H PRN PO 04/01/16 16:30 04/04/16 12:32 (Roxicodone) 5 mg Q4H PRN PO 04/01/16 16:30 (Narcan Inj) 0.4 mg UNSCH PRN IV 04/01/16 16:30 Enalaprilat 1.25 mg 1.25 mg Q6H PRN IV PUSH 04/01/16 17:00 (NS 1000 ml Inj) 1,000 ml @ 125 mls/hr Q8H IV 04/02/16 17:30 04/04/16 02:00 Hydromorphone HCl 0.5 mg 0.5 mg Q4H PRN IV PUSH 04/03/16 12:45 04/04/16 14:14 (Vancomycin Inj/ NS 250 ml Inj) 262.5 ml @ 250 mls/hr Q8H IV 04/04/16 18:00 Miscellaneous Information SPECIFIC LAB TO BE DELIA... 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 Physical Exam Vital Signs Vital Signs Date Time Temp Pulse Resp B/P Pulse Ox O2 Delivery O2 Flow Rate FiO2 04/04/16 14:44 17 04/04/16 14:07 96.8 85 154/95 99 04/01/16 18:30 Room Air I/O 04/03/16 04/03/16 04/04/16 08:00 16:00 00:00 Intake Total 1097 ml 720 ml 2118 ml Output Total 350 ml Balance 747 ml 720 ml 2118 ml Mental Status Examination Appearance woman, with hygiene, calm and cooperative Speech: Unremarkable Orientation: x3 Memory: Unremarkable Thought Process: Logical Thought Content: Unremarkable Hallucination Type: None Suicidal Ideation: No Previous Suicide Attempts: No Homicidal Ideation: No Previous Homicide Attempts: No Judgement: WNL Affect: Good Mood: Appropriate Motor Activity: Normal gait Assessment & Plan Problem List: (1) Amphetamine use disorder, severe, dependence Assessment & Plan: Psychiatric evaluation for the patient does not present any mood symptoms, anxiety, perceptual disturbances, psychosis, rashaad, patient is cooperative, calm, logical, relevant pleasant, she denies suicidal ideation. Patient expressed motivation to continue medical treatment and and after finishing medical treatment to start a long-term outpatient rehabilitation program and her minutes with narcotic anonymous. At this moment the patient does not need any immediate psychiatric intervention, she does not meet criteria for psychiatric admission. No psychotropics indicated at this moment. We will revisit the patient for follow-up next week. ICD Code: F15.20 Assessment & Plan Estimated LOS: Tung Naidu MD Apr 04, 2016 15:15
[2016-04-04] MEDS ORDERED: LIDOCAINE 1%/EPINEPHrine 1:100,000 SOLN 30 ML VIAL ONE (15:52)
--- NOTE | 2016-04-04 16:36 | PD.OP ---
Operative Report Preoperative Diagnosis: (1) Abscess of right hand excluding fingers and thumb Postoperative Diagnosis: (1) Abscess of right hand excluding fingers and thumb Procedure: incision and drainage right hand abscess Anesthesia: local 1 % lidocaine with epi 2 cc Surgeon: Yonathan Beth Electronic Die Maker(s): channing Operation and Findings: abscess over the dorso ulnar aspect of the right hand about 2 cc of purulent material drained packing of the wound carried out material sent for c/s Yonathan Beth MD Apr 04, 2016 16:36
--- NOTE | 2016-04-04 16:42 | HHI.PR ---
Subjective Remarks complains of pain over the right hand and wrist region also complains of swelling no fever Objective Vital Signs Date Time Temp Pulse Resp B/P Pulse Ox O2 Delivery O2 Flow Rate FiO2 04/04/16 14:44 17 04/04/16 14:07 96.8 85 16 154/95 99 04/04/16 13:48 96.6 85 20 141/18 100 04/04/16 13:32 17 04/04/16 12:00 97.3 75 16 119/58 100 04/04/16 08:00 97.5 76 15 115/57 98 04/04/16 00:00 99.3 92 18 124/60 100 04/03/16 20:00 97.4 93 18 123/59 99 I/O 04/03/16 04/03/16 04/03/16 04/04/16 04/04/16 04/04/16 07:00 15:00 23:00 07:00 15:00 23:00 Intake Total 1097 ml 720 ml 2118 ml 961 ml 1263 ml Output Total 350 ml Balance 747 ml 720 ml 2118 ml 961 ml 1263 ml Intake Oral 360 ml 720 ml 620 ml 360 ml 600 ml IV Total 737 ml 1498 ml 601 ml 663 ml Output Urine Total 350 ml # Voids 1 2 3 # Bowel Movements 0 0 0 0 right hand; decreased swelling with wrinkles back over the dorsal aspect fluctuant mass noted over the dorsoulnar aspect of the hand tenderness noted over the region right forearm: swelling localizing to the dorsoradial aspect of the distal forearm no fluctuation or abscess cavity noted wrist range of motion, terminal degrees are limited and painful swelling also noted over the volar aspect of the proximal forearm no evidence of compartment syndrome CBC Diagram 04/04/16 07:00 Last 48 hours Impressions Upper Extremity CT 04/02/16 7983 Signed Impressions: Service Date/Time: Saturday, April 02, 2016 18:27 - CONCLUSION: 1. Cellulitic changes. 2. Small thrombus within a vessel along the dorsal aspect of the wrist. Yvan Sebastian MD Result Diagram: 04/04/16 0700 04/03/16 0550 Assessment and Plan Assessment and Plan 45 year old female with iv drug abuse, cellulitis and questionable abscess left hand and cellulitis wrist/forearm region Plan: likely has abscess over the dorsoulnar aspect of the hand, will proceed with bedside Incision and drainage incision and drainage done: 2 cc purulent material drained, wound packed, material sent for c/s forearm/wrist: swelling with cellulitis, no evidence of collection, CT scan no evidence of collection keep the part elevated continue with iv antibiotics hand surgery will follow. Yonathan Beth MD Apr 04, 2016 16:42
[2016-04-04] MEDS ORDERED: VANCOMYCIN INJ 1,250 MG in SODIUM CHLOR 0.9% 250 ML INJ 250 ML IV SCH (18:00)
[2016-04-05] VITALS: BP 105/68; PULSE 77; RESP 20; TEMP 97.5; O2SAT 100
[2016-04-05] MEDS: HYDROmorphone HCL PF 1 MG/ML VIAL IV PUSH PRN ×5 (00:25→20:24)
[2016-04-05] MEDS: DOCUSATE SODIUM 100 MG CAP PO SCH ×2 (04:57→17:22)
[2016-04-05 05:39] LABS: BICARBONATE 27.7 MEQ/L (21.0-32.0); POTASSIUM 3.9 MEQ/L (3.5-5.1)
[2016-04-05 05:41] LABS: HEMATOCRIT 26.5 % (35.0-46.0); MEAN CELL VOLUME 61.9 FL (80.0-100.0); MEAN CORPUSCULAR HEMOGLOBIN 19.5 PG (27.0-34.0); MEAN CORPUSCULAR HGB CONC 31.5 % (32.0-36.0); PLATELET COUNT 369 TH/MM3 (150-450); RED BLOOD COUNT 4.29 MIL/MM3 (4.00-5.30); RED CELL DISTRIBUTION WIDTH 20.4 % (11.6-17.2); WHITE BLOOD COUNT 5.4 TH/MM3 (4.0-11.0)
[2016-04-05 05:42] LABS: REVIEW FLAG FINAL
[2016-04-05 08:00] VITALS: BP 100/55; PULSE 70; RESP 17; TEMP 97.5; O2SAT 97
[2016-04-05] MEDS: SODIUM CHLORIDE 0.9% FLUSH 5 ML FLUSH FLUSH SCH ×2 (08:22→19:55)
[2016-04-05] MEDS: ceFAZolin 2 GM PREMIX 50 ML IV SCH ×3 (08:22→19:55)
[2016-04-05] MEDS: SODIUM CHLOR 0.9% 1000 ML INJ 1,000 ML IV SCH ×4 (08:24→19:55)
[2016-04-05] MEDS ORDERED: PHARMACY ORDERED LAB XX ONE (09:45)
[2016-04-05] MEDS ORDERED: POLYETHYLENE GLYCOL 17 GM PKG PO SCH (10:15)
--- NOTE | 2016-04-05 10:51 | HHI.PR ---
Subjective Remarks The patient was resting comfortably in bed. She said the drainage last night was painful and probably not worth it. She did admit that her arm was looking better today. She said she had a bowel movement. Discussed with nursing. Objective Vitals Vital Signs Date Time Temp Pulse Resp B/P Pulse Ox O2 Delivery O2 Flow Rate FiO2 04/05/16 08:00 97.5 70 17 100/55 97 04/05/16 00:00 97.5 77 20 105/68 100 04/04/16 22:56 18 04/04/16 20:00 98.9 76 20 110/67 99 04/04/16 16:55 18 04/04/16 16:00 96.0 86 20 125/60 99 04/04/16 14:07 96.8 85 16 154/95 99 04/04/16 13:48 96.6 85 20 141/18 100 04/04/16 12:00 97.3 75 16 119/58 100 I/O 04/04/16 04/04/16 04/04/16 04/05/16 04/05/16 04/05/16 07:00 15:00 23:00 07:00 15:00 23:00 Intake Total 961 ml 1263 ml 1152 ml 1488 ml Output Total 300 ml 900 ml Balance 961 ml 1263 ml 852 ml 588 ml Intake Oral 360 ml 600 ml 480 ml 480 ml IV Total 601 ml 663 ml 323 ml 1008 ml Packed Cells 349 ml Output Urine Total 300 ml 900 ml # Voids 2 3 # Bowel Movements 0 0 Result Diagram: 04/05/16 0417 04/05/16 0417 Imaging Last Impressions Upper Extremity CT 04/02/16 1743 Signed Impressions: Service Date/Time: Saturday, April 02, 2016 18:27 - CONCLUSION: 1. Cellulitic changes. 2. Small thrombus within a vessel along the dorsal aspect of the wrist. Yvan Sebastian MD Upper Extremity Ultrasound 04/01/16 0000 Signed Impressions: Service Date/Time: Friday, April 01, 2016 15:23 - CONCLUSION: 1. Soft tissue swelling and edematous changes at the back of the wrist and hand most characteristic of a cellulitis. Oseas Lewis MD Objective Remarks GENERAL: Well-nourished, well-developed patient. SKIN: Warm and dry. Multiple sores on the upper and lower extremities. Wound at the upper back, about 3 cm in diameter. HEAD: Atraumatic. Normocephalic. EYES: Pupils equal and round. No scleral icterus. No injection or drainage. ENT: No nasal bleeding or discharge. Mucous membranes pink and moist. NECK: Trachea midline. No JVD. CARDIOVASCULAR: Regular rate and rhythm. Grade 1 systolic murmur appreciated. RESPIRATORY: No accessory muscle use. Clear to auscultation. Breath sounds equal bilaterally. GASTROINTESTINAL: Abdomen soft, non-tender, nondistended. Hepatic and splenic margins not palpable. MUSCULOSKELETAL: No clubbing. No cyanosis. She has diffuse swelling of the right hand, more focused on the forearm at this time. Multiple blisters noted. There is pain with passive and active flexion and extension of all 5 fingers. Pulse and sensation and cap refill are intact. Dressing in place. NEUROLOGICAL: Awake and alert. No obvious cranial nerve deficits. Motor grossly within normal limits. Normal speech. PSYCHIATRIC: Mood and affect appropriate. Procedures I&D 04/04/16. Medications and IVs Current Medications Medications (Trade) Dose Ordered Sig/Declan Route Start Time Stop Time Status Last Admin (NS Flush) 2 ml UNSCH PRN FLUSH 04/01/16 16:30 (NS Flush) 2 ml BID FLUSH 04/01/16 21:00 04/03/16 14:03 (Tylenol) 650 mg Q4H PRN PO 04/01/16 16:30 (Zofran Inj) 4 mg Q6H PRN IVP 04/01/16 16:30 (Colace) 100 mg Q12H PO 04/01/16 18:00 04/05/16 04:57 (Senokot) 17.2 mg Q12H PRN PO 04/01/16 16:30 04/05/16 16:30 (Tylenol) 650 mg Q6H PRN PO 04/01/16 16:30 04/05/16 08:22 (Roxicodone) 10 mg Q4H PRN PO 04/01/16 16:30 04/05/16 09:57 (Roxicodone) 5 mg Q4H PRN PO 04/01/16 16:30 (Narcan Inj) 0.4 mg UNSCH PRN IV 04/01/16 16:30 Enalaprilat 1.25 mg 1.25 mg Q6H PRN IV PUSH 04/01/16 17:00 (NS 1000 ml Inj) 1,000 ml @ 125 mls/hr Q8H IV 04/02/16 17:30 04/04/16 20:24 Hydromorphone HCl 0.5 mg 0.5 mg Q4H PRN IV PUSH 04/03/16 12:45 04/05/16 04:57 (Ancef 2 Gm Premix) 50 ml @ 100 mls/hr Q8H IV 04/04/16 15:30 04/05/16 08:22 (Senokot) 17.2 mg DAILY PO 04/05/16 10:11 (Miralax) 17 gm DAILY PO 04/05/16 10:15 A/P Assessment and Plan Sepsis/ Right hand infection S/t injecting hand with IV drugs. Hand surgery was called by the ED physician. CT of the wrist and forearm without obvious fluid collection. Blood cultures growing strep. Appreciated ID consult. S/p I&D 04/04. - continue cefepime per ID. - follow up with hand surgery. - IVFs, pain control with a bowel regimen. - OT for range of motion. - follow wound culture. Back wound The pt states she had a blister that formed about 9 months s/t drug use. - wound culture pending. - wound care per wound nurse. Consult appreciated. Thrombus CT of the hand showed: Small thrombus within a vessel along the dorsal aspect of the wrist. - Symptomatic management as it is a superficial, distal thrombus. Thalassemia Iron deficiency anemia confirmed by labs. The pt states she has a history of thalassemia. At first hesitant to receive a blood transfusion but now willing. Transfused 1 unit 04/04/16. - Hemoccult requested. - follow CBC. Improved. IV drug use For the past 6 months. The pt says she wishes to quit. - cessation instruction. - disability case manager consult. PPx: SCDs. Discharge Planning Awaiting clinical improvement. Reginald Houser DO Apr 05, 2016 10:51
[2016-04-05] MEDS ORDERED: POLYETHYLENE GLYCOL 17 GM PKG PO PRN (11:00)
[2016-04-05] MEDS: SENNOSIDES 8.6 MG TAB PO SCH (11:07)
[2016-04-05 12:00] VITALS: BP 104/68; PULSE 75; RESP 18; TEMP 97.7; O2SAT 98
--- NOTE | 2016-04-05 16:10 | PD.ORT.PN ---
Subjective Post Op Day #: 1 Subjective Remarks Pain and swelling some better right hand and forearm Range of Motion Has full AROM of her fingers right hand Objective Vitals Vital Signs Date Time Temp Pulse Resp B/P Pulse Ox O2 Delivery O2 Flow Rate FiO2 04/05/16 12:00 97.7 75 18 104/68 98 04/05/16 08:00 97.5 70 17 100/55 97 04/05/16 00:00 97.5 77 20 105/68 100 04/04/16 22:56 18 04/04/16 20:00 98.9 76 20 110/67 99 04/04/16 16:55 18 I/O 04/04/16 04/04/16 04/04/16 04/05/16 04/05/16 04/05/16 07:00 15:00 23:00 07:00 15:00 23:00 Intake Total 961 ml 1263 ml 1152 ml 1488 ml 1119 ml Output Total 300 ml 900 ml 750 ml Balance 961 ml 1263 ml 852 ml 588 ml 369 ml Intake Oral 360 ml 600 ml 480 ml 480 ml 240 ml IV Total 601 ml 663 ml 323 ml 1008 ml 879 ml Packed Cells 349 ml Output Urine Total 300 ml 900 ml 750 ml # Voids 2 3 # Bowel Movements 0 0 0 Result Diagram: 04/05/1641604/05/16416 Other Results wound culture negative at 24 hours. blood cultures positive for group A beta strep Objective Remarks right hand wound with some pus on packing, but no expressible drainage and mild erythema of the dorsum right hand and dorsoradial right forearm with induration of forearm. Swelling improved dorsum right hand. Several superficial wounds dorsal right forearm that are clean Assessment & Plan Ortho Post Op Day #: 1 Problem List: (1) Abscess of right hand excluding fingers and thumb (2) IV drug abuse Assessment and Plan Local wound care for superficial wounds right forearm--soap and water and Bacitracin ointment. Right dorsal hand wound cleaned with normal saline and repacked with 1/4" iodoform gauze and sterile 4x4s, 3" Deborah applied. Continue IV antibiotics. Will discuss with Dr. Beth. Elevate--she is doing. She says that she is going to drug rehab at discharge and not going to do drugs anymore. Lindsay Recinos MD 7, 2017 16:09
[2016-04-05 20:16] VITALS: BP 135/72; PULSE 80; RESP 18; TEMP 97.6; O2SAT 98
[2016-04-05] MEDS: BACITRACIN TOP OINT 15 GM TUBE TOP SCH (22:24)
[2016-04-05 23:39] VITALS: BP 128/61; PULSE 79; RESP 18; TEMP 97.3; O2SAT 96
[2016-04-06] MEDS: HYDROmorphone HCL PF 1 MG/ML VIAL IV PUSH PRN ×6 (01:10→23:39)
[2016-04-06] MEDS: DOCUSATE SODIUM 100 MG CAP PO SCH ×2 (03:53→16:48)
[2016-04-06 08:00] VITALS: BP 115/66; PULSE 76; RESP 17; TEMP 98.3; O2SAT 98
[2016-04-06] MEDS: ceFAZolin 2 GM PREMIX 50 ML IV SCH ×3 (08:01→23:38)
[2016-04-06] MEDS: SENNOSIDES 8.6 MG TAB PO SCH (08:02)
[2016-04-06] MEDS: SODIUM CHLOR 0.9% 1000 ML INJ 1,000 ML IV SCH (08:03)
[2016-04-06] MEDS: SODIUM CHLORIDE 0.9% FLUSH 5 ML FLUSH FLUSH SCH ×2 (08:03→19:40)
[2016-04-06] MEDS: BACITRACIN TOP OINT 15 GM TUBE TOP SCH ×2 (08:03→19:41)
[2016-04-06 12:00] VITALS: BP 118/69; PULSE 77; RESP 17; TEMP 97.9; O2SAT 98
--- NOTE | 2016-04-06 12:23 | HHI.PR ---
Subjective Remarks The patient said that her arm was continuing to improve but she felt that there was area of swelling in her forearm that she was concerned about. She says the wound in her upper back is smaller. She says she has been putting ointment on her other sores on her body. She has been ambulating. She has been having bowel movements. She had no acute complaints. Discussed with nursing. Objective Vitals Vital Signs Date Time Temp Pulse Resp B/P Pulse Ox O2 Delivery O2 Flow Rate FiO2 04/06/16 12:00 97.9 77 17 118/69 98 04/06/16 08:00 98.3 76 17 115/66 98 04/05/16 23:39 97.3 79 18 128/61 96 04/05/16 20:16 97.6 80 18 135/72 98 I/O 04/05/16 04/05/16 04/05/16 04/06/16 04/06/16 04/06/16 07:00 15:00 23:00 07:00 15:00 23:00 Intake Total 1488 ml 1119 ml 1405 ml 1490 ml Output Total 900 ml 750 ml Balance 588 ml 369 ml 1405 ml 1490 ml Intake Oral 480 ml 240 ml 480 ml 580 ml IV Total 1008 ml 879 ml 925 ml 910 ml Output Urine Total 900 ml 750 ml # Voids 3 3 # Bowel Movements 1 Result Diagram: 04/05/16 0417 04/05/16 0417 Imaging Last Impressions Upper Extremity CT 04/02/16 1743 Signed Impressions: Service Date/Time: Saturday, April 02, 2016 18:27 - CONCLUSION: 1. Cellulitic changes. 2. Small thrombus within a vessel along the dorsal aspect of the wrist. Yvan Sebastian MD Upper Extremity Ultrasound 04/01/16 0000 Signed Impressions: Service Date/Time: Friday, April 01, 2016 15:23 - CONCLUSION: 1. Soft tissue swelling and edematous changes at the back of the wrist and hand most characteristic of a cellulitis. Oseas Lewis MD Objective Remarks GENERAL: Well-nourished, well-developed patient. SKIN: Warm and dry. Multiple sores on the upper and lower extremities. Wound at the upper back, about 3 cm in diameter. HEAD: Atraumatic. Normocephalic. EYES: Pupils equal and round. No scleral icterus. No injection or drainage. ENT: No nasal bleeding or discharge. Mucous membranes pink and moist. NECK: Trachea midline. No JVD. CARDIOVASCULAR: Regular rate and rhythm. Grade 1 systolic murmur appreciated. RESPIRATORY: No accessory muscle use. Clear to auscultation. Breath sounds equal bilaterally. GASTROINTESTINAL: Abdomen soft, non-tender, nondistended. Hepatic and splenic margins not palpable. MUSCULOSKELETAL: No clubbing. No cyanosis. She has diffuse swelling of the right hand, more focused on the forearm at this time. Multiple blisters noted. There is pain with passive and active flexion and extension of all 5 fingers. Pulse and sensation and cap refill are intact. Dressing in place. NEUROLOGICAL: Awake and alert. No obvious cranial nerve deficits. Motor grossly within normal limits. Normal speech. PSYCHIATRIC: Mood and affect appropriate. Procedures I&D 04/04/16. Medications and IVs Current Medications Medications (Trade) Dose Ordered Sig/Declan Route Start Time Stop Time Status Last Admin (NS Flush) 2 ml UNSCH PRN FLUSH 04/01/16 16:30 (NS Flush) 2 ml BID FLUSH 04/01/16 21:00 04/05/16 19:55 (Tylenol) 650 mg Q4H PRN PO 04/01/16 16:30 (Zofran Inj) 4 mg Q6H PRN IVP 04/01/16 16:30 (Colace) 100 mg Q12H PO 04/01/16 18:00 04/06/16 03:53 (Tylenol) 650 mg Q6H PRN PO 04/01/16 16:30 04/05/16 08:22 (Roxicodone) 10 mg Q4H PRN PO 04/01/16 16:30 04/06/16 08:03 (Roxicodone) 5 mg Q4H PRN PO 04/01/16 16:30 (Narcan Inj) 0.4 mg UNSCH PRN IV 04/01/16 16:30 Enalaprilat 1.25 mg 1.25 mg Q6H PRN IV PUSH 04/01/16 17:00 (NS 1000 ml Inj) 1,000 ml @ 125 mls/hr Q8H IV 04/02/16 17:30 04/05/16 19:55 Hydromorphone HCl 0.5 mg 0.5 mg Q4H PRN IV PUSH 04/03/16 12:45 04/06/16 10:52 (Ancef 2 Gm Premix) 50 ml @ 100 mls/hr Q8H IV 04/04/16 15:30 04/06/16 08:01 (Senokot) 17.2 mg DAILY PO 04/05/16 10:11 04/06/16 08:02 (Miralax) 17 gm DAILY PRN PO 04/05/16 11:00 (Baciguent Oint) 1 applic Q12HR TOP 04/05/16 21:00 04/06/16 08:03 A/P Assessment and Plan Sepsis/ Right hand infection S/t injecting hand with IV drugs. Hand surgery was called by the ED physician. CT of the wrist and forearm without obvious fluid collection. Blood cultures growing strep. Appreciated ID consult. S/p I&D 04/04. - continue cefepime per ID. - d/c IVFs 04/06. - follow up with hand surgery. - pain control with a bowel regimen. - OT for range of motion. - follow wound culture. Back wound The pt states she had a blister that formed about 9 months s/t drug use. - wound culture pending. No growth 04/06. - wound care per wound nurse. Consult appreciated. Thrombus CT of the hand showed: Small thrombus within a vessel along the dorsal aspect of the wrist. - Symptomatic management as it is a superficial, distal thrombus. Thalassemia Iron deficiency anemia confirmed by labs. The pt states she has a history of thalassemia. At first hesitant to receive a blood transfusion but now willing. Transfused 1 unit 04/04/16. Hemoccult negative. - follow CBC. Improved. IV drug use For the past 6 months. The pt says she wishes to quit. - cessation instruction. - case filler consult. PPx: SCDs. Discharge Planning Awaiting clinical improvement. Reginald Houser DO Apr 06, 2016 12:23
--- NOTE | 2016-04-06 16:31 | PD.ORT.PN ---
Subjective Post Op Day #: 2 Subjective Remarks Pain and swelling better right hand and forearm Range of Motion Has full AROM of fingers right hand Objective Vitals Vital Signs Date Time Temp Pulse Resp B/P Pulse Ox O2 Delivery O2 Flow Rate FiO2 04/06/16 12:00 97.9 77 17 118/69 98 04/06/16 08:00 98.3 76 17 115/66 98 04/05/16 23:39 97.3 79 18 128/61 96 04/05/16 20:16 97.6 80 18 135/72 98 I/O 04/05/16 04/05/16 04/05/16 04/06/16 04/06/16 04/06/16 07:00 15:00 23:00 07:00 15:00 23:00 Intake Total 1488 ml 1119 ml 1405 ml 1490 ml 1485 ml Output Total 900 ml 750 ml Balance 588 ml 369 ml 1405 ml 1490 ml 1485 ml Intake Oral 480 ml 240 ml 480 ml 580 ml 480 ml IV Total 1008 ml 879 ml 925 ml 910 ml 1005 ml Output Urine Total 900 ml 750 ml # Voids 3 3 3 # Bowel Movements 1 0 Result Diagram: 04/05/16 0417 04/05/16 0417 Other Results wound culture right hand negative at 48 hours. Objective Remarks right hand wound with no expressible drainage and no erythema of the dorsum right hand and dorsoradial right forearm with induration of forearm and minimal erythema--much improved from yesterday. Swelling improved dorsum right hand even more. Several superficial wounds dorsal right forearm that are clean and healing. Assessment & Plan Ortho Post Op Day #: 2 Problem List: (1) Abscess of right hand excluding fingers and thumb (2) IV drug abuse Assessment and Plan Local wound care for superficial wounds right forearm--soap and water and Bacitracin ointment. Right dorsal hand wound cleaned with normal saline and repacked with 1/4" iodoform gauze and sterile 4x4s, 3" Deborah applied. Continue IV antibiotics. discussed with Dr. Beth--will keep her NPO after breakfast in am in case the forearm area needs to be opened up. This could be clotted vein and/or infection in the vein. Elevate--she is doing that well and swelling continues to improve. She says that she is going to drug rehab at discharge and not going to do drugs anymore. Lindsay Recinos MD Apr 06, 2016 16:31
[2016-04-06 20:00] VITALS: BP 116/59; PULSE 69; RESP 16; TEMP 98; O2SAT 96
[2016-04-07] VITALS: BP 113/57; PULSE 70; RESP 16; TEMP 97.4; O2SAT 97
[2016-04-07] MEDS: HYDROmorphone HCL PF 1 MG/ML VIAL IV PUSH PRN ×4 (03:42→23:13)
[2016-04-07] MEDS: DOCUSATE SODIUM 100 MG CAP PO SCH ×2 (04:42→17:38)
[2016-04-07 05:34] LABS: AUTOMATED NEUTROPHIL # 2.6 TH/MM3 (1.8-7.7); BASOPHIL % 0.3 % (0.0-2.0); EOSINOPHIL # 0.3 TH/MM3 (0-0.4); EOSINOPHIL % 5.8 % (0.0-4.0); HEMATOCRIT 26.4 % (35.0-46.0); LYMPHOCYTE # 1.7 TH/MM3 (1.0-4.8); MEAN CELL VOLUME 61.4 FL (80.0-100.0); MEAN CORPUSCULAR HEMOGLOBIN 19.4 PG (27.0-34.0); MEAN CORPUSCULAR HGB CONC 31.7 % (32.0-36.0); MONO % 8.9 % (0.0-8.0); PLATELET COUNT 430 TH/MM3 (150-450); RED CELL DISTRIBUTION WIDTH 20.3 % (11.6-17.2); WHITE BLOOD COUNT 5.1 TH/MM3 (4.0-11.0)
[2016-04-07 05:43] LABS: HEMO FLAGS AUTO DIFF
[2016-04-07 08:00] VITALS: BP 115/59; PULSE 54; RESP 16; TEMP 96.9; O2SAT 98
[2016-04-07] MEDS: SENNOSIDES 8.6 MG TAB PO SCH (08:35)
[2016-04-07] MEDS: ceFAZolin 2 GM PREMIX 50 ML IV SCH ×3 (08:36→23:14)
[2016-04-07] MEDS: SODIUM CHLORIDE 0.9% FLUSH 5 ML FLUSH FLUSH SCH ×2 (08:36→21:30)
[2016-04-07 08:50] LABS: PLATELET ESTIMATE SMEAR HIGH (NORMAL); PLATELET MORPHOLOGY NORMAL (NORMAL); SCAN/DIFF AUTO DIFF CONFIRMED
[2016-04-07] MEDS: BACITRACIN TOP OINT 15 GM TUBE TOP SCH ×2 (08:54→21:00)
[2016-04-07 12:00] VITALS: BP 117/69; PULSE 57; RESP 16; TEMP 97.5; O2SAT 95
--- NOTE | 2016-04-07 12:20 | HHI.IDPN ---
Subjective Subjective Remarks Notes reviewed No fever Feeling better No new (+) BC Antibiotics Ancef Lines PIV Past Medical History Chronic pain Depression IVDU Past Surgical History Cervical fusion Allergies: Coded Allergies: Penicillin (Verified Allergy, Intermediate, Rash, 04/04/16) Has taken Keflex without any problem Uncoded Allergies: chemical allergy (Allergy, Severe, anaphalactic, 09/27/12) Objective . Vital Signs Date Time Temp Pulse Resp B/P Pulse Ox O2 Delivery O2 Flow Rate FiO2 04/07/16 10:36 20 04/07/16 09:30 19 04/07/16 08:00 96.9 54 16 115/59 98 04/07/16 00:00 97.4 70 16 113/57 97 04/06/16 20:00 98.0 69 16 116/59 96 04/06/16 12:00 97.9 77 17 118/69 98 04/06/16 04/06/16 04/07/16 15:00 23:00 07:00 Intake Total 1485 ml 302 ml 50 ml Balance 1485 ml 302 ml 50 ml Intake Oral 480 ml 240 ml IV Total 1005 ml 62 ml 50 ml # Voids 3 4 3 # Bowel Movements 0 . Laboratory Tests Test 04/07/16 04:46 White Blood Count 5.1 TH/MM3 Red Blood Count 4.30 MIL/MM3 Hemoglobin 8.4 GM/DL Hematocrit 26.4 % Mean Corpuscular Volume 61.4 FL Mean Corpuscular Hemoglobin 19.4 PG Mean Corpuscular Hemoglobin 31.7 % Concent Red Cell Distribution Width 20.3 % Platelet Count 430 TH/MM3 Mean Platelet Volume 8.7 FL Neutrophils (%) (Auto) 51.0 % Lymphocytes (%) (Auto) 34.0 % Monocytes (%) (Auto) 8.9 % Eosinophils (%) (Auto) 5.8 % Basophils (%) (Auto) 0.3 % Neutrophils # (Auto) 2.6 TH/MM3 Lymphocytes # (Auto) 1.7 TH/MM3 Monocytes # (Auto) 0.5 TH/MM3 Eosinophils # (Auto) 0.3 TH/MM3 Basophils # (Auto) 0.0 TH/MM3 CBC Comment AUTO DIFF Differential Comment AUTO DIFF CONFIRMED Platelet Estimate HIGH Platelet Morphology Comment NORMAL Microbiology Date/Time Procedure Status Source Growth 04/04/16 16:17 Gram Stain - Final Resulted Wound Hand 04/04/16 16:17 Wound Culture - Preliminary Resulted Wound Hand NO GROWTH IN 48 HOURS. 04/05/16 10:55 Stool Occult Blood (MARIA ESTHER) - Final Complete Stool Stool HEMOCCULT NEGATIVE Imaging Upper Extremity CT 04/02/16 1743 Signed Impressions: Service Date/Time: Saturday, April 02, 2016 18:27 - CONCLUSION: 1. Cellulitic changes. 2. Small thrombus within a vessel along the dorsal aspect of the wrist. Yvan Sebastian MD Upper Extremity Ultrasound 04/01/16 0000 Signed Impressions: Service Date/Time: Friday, April 01, 2016 15:23 - CONCLUSION: 1. Soft tissue swelling and edematous changes at the back of the wrist and hand most characteristic of a cellulitis. Oseas Lewis MD Physical Exam GENERAL: awake and alert, not in respiratory distress. SKIN: Warm and dry. She has multiple scattered dry wounds with eschar in her UE and LE , and some in buttocks. She has hypopigmented macules in her UE and legs from previous insect bites. There is a large open wound in her mid upper back that is about 1.25 inch diameter with red base, no necrotic tissue and border seems raised, with no periwound redness. HEENT: [place] conjunctivae, no petechia or hemorrhage. No scleral icterus. Moist oral mucosa, she is edentulous, wearing upper dentures. NECK: Trachea midline. No JVD or lymphadenopathy. Supple, nontender, no meningeal signs. CARDIOVASCULAR: Regular rate and rhythm without murmurs, gallops, or rubs. RESPIRATORY: Clear to auscultation. Breath sounds equal bilaterally. No wheezes , rales, or rhonchi. GASTROINTESTINAL: Abdomen soft, non-tender, nondistended. Bowel sounds are present and normoactive. No hepato-splenomegaly, or palpable masses. No guarding. MUSCULOSKELETAL: Extremities lower without clubbing, cyanosis, or edema. No calf tenderness. In her RUE - on her R hand , there is a small incision with packing, no puruelnce, redness almost gone. IN her distal R forearm, still with some erythema but netter, and there is an elongated area of induration, ? thrombosed vein NEUROLOGICAL: Non-focal PSYCH: Normal affect, calm and cooperative LINE: PIV with no evidence of infection LINE: PIV with no evidence of infection Assessment & Plan Remarks IMPRESSION Strep pyogenes bacteremia due to infection R hand and R forearm, from IVDU - has thrombus seen in vessels, seen on CT and US Known IVDU Chronic wound upper mid back, etiology? Hives with PCN, but she has tolerated Keflex in the past RECOMMENDATION Continue IN Ancef May need reeval of her forearm, if with septic phlebitis, she may need excision of the infected vein Follow C/S Monitor progress Consuelo Martin MD Apr 07, 2016 12:20
--- NOTE | 2016-04-07 15:02 | HHI.PR ---
Subjective Remarks The patient was upset about still being nothing by mouth. She said her pain was well-controlled at this time. She said she was supposed to go for surgery at 10:30 in the morning and neck are canceled. She has no other acute complaints at this time. Discussed with nursing. Objective Vitals Vital Signs Date Time Temp Pulse Resp B/P Pulse Ox O2 Delivery O2 Flow Rate FiO2 04/07/16 14:00 18 04/07/16 12:00 97.5 57 16 117/69 95 04/07/16 10:36 20 04/07/16 08:00 96.9 54 16 115/59 98 04/07/16 00:00 97.4 70 16 113/57 97 04/06/16 20:00 98.0 69 16 116/59 96 I/O 04/06/16 04/06/16 04/06/16 04/07/16 04/07/16 04/07/16 07:00 15:00 23:00 07:00 15:00 23:00 Intake Total 1490 ml 1485 ml 302 ml 50 ml 0 ml Output Total 650 ml Balance 1490 ml 1485 ml 302 ml 50 ml -650 ml Intake Oral 580 ml 480 ml 240 ml 0 ml IV Total 910 ml 1005 ml 62 ml 50 ml Output Urine Total 650 ml # Voids 3 3 4 3 # Bowel Movements 0 0 Result Diagram: 04/07/16 0446 04/05/16 0417 Imaging Last Impressions Upper Extremity CT 04/02/16 1743 Signed Impressions: Service Date/Time: Saturday, April 02, 2016 18:27 - CONCLUSION: 1. Cellulitic changes. 2. Small thrombus within a vessel along the dorsal aspect of the wrist. Yvan Sebastian MD Upper Extremity Ultrasound 04/01/16 0000 Signed Impressions: Service Date/Time: Friday, April 01, 2016 15:23 - CONCLUSION: 1. Soft tissue swelling and edematous changes at the back of the wrist and hand most characteristic of a cellulitis. Oseas Lewis MD Objective Remarks GENERAL: Well-nourished, well-developed patient. SKIN: Warm and dry. Multiple sores on the upper and lower extremities. Wound at the upper back, about 3 cm in diameter. HEAD: Atraumatic. Normocephalic. EYES: Pupils equal and round. No scleral icterus. No injection or drainage. ENT: No nasal bleeding or discharge. Mucous membranes pink and moist. NECK: Trachea midline. No JVD. CARDIOVASCULAR: Regular rate and rhythm. Grade 1 systolic murmur appreciated. RESPIRATORY: No accessory muscle use. Clear to auscultation. Breath sounds equal bilaterally. GASTROINTESTINAL: Abdomen soft, non-tender, nondistended. Hepatic and splenic margins not palpable. MUSCULOSKELETAL: No clubbing. No cyanosis. She has diffuse swelling of the right hand, more focused on the forearm at this time. Largely improved. Multiple blisters noted. There is pain with passive and active flexion and extension of all 5 fingers. Pulse and sensation and cap refill are intact. Dressing in place. NEUROLOGICAL: Awake and alert. No obvious cranial nerve deficits. Motor grossly within normal limits. Normal speech. PSYCHIATRIC: Mood and affect appropriate. Procedures I&D 04/04/16. Medications and IVs Current Medications Medications (Trade) Dose Ordered Sig/Declan Route Start Time Stop Time Status Last Admin (NS Flush) 2 ml UNSCH PRN FLUSH 04/01/16 16:30 (NS Flush) 2 ml BID FLUSH 04/01/16 21:00 04/07/16 08:36 (Tylenol) 650 mg Q4H PRN PO 04/01/16 16:30 (Zofran Inj) 4 mg Q6H PRN IVP 04/01/16 16:30 (Colace) 100 mg Q12H PO 04/01/16 18:00 04/07/16 04:42 (Tylenol) 650 mg Q6H PRN PO 04/01/16 16:30 04/05/16 08:22 (Roxicodone) 10 mg Q4H PRN PO 04/01/16 16:30 04/07/16 13:00 (Roxicodone) 5 mg Q4H PRN PO 04/01/16 16:30 (Narcan Inj) 0.4 mg UNSCH PRN IV 04/01/16 16:30 (Vasotec Inj) 1.25 mg Q6H PRN IV PUSH 04/01/16 17:00 Hydromorphone HCl 0.5 mg 0.5 mg Q4H PRN IV PUSH 04/03/16 12:45 04/07/16 10:06 (Ancef 2 Gm Premix) 50 ml @ 100 mls/hr Q8H IV 04/04/16 15:30 04/07/16 14:19 (Senokot) 17.2 mg DAILY PO 04/05/16 10:11 04/07/16 08:35 (Miralax) 17 gm DAILY PRN PO 04/05/16 11:00 (Baciguent Oint) 1 applic Q12HR TOP 04/05/16 21:00 04/07/16 08:54 A/P Assessment and Plan Sepsis/ Right hand infection S/t injecting hand with IV drugs. Hand surgery was called by the ED physician. CT of the wrist and forearm without obvious fluid collection. Blood cultures growing strep. Appreciated ID consult. S/p I&D 04/04. IVFs d/c. Wound culture negative. - continue cefepime per ID. - follow up with hand surgery. Repeat I&D tentatively scheduled for 04/07. - pain control with a bowel regimen. - OT for range of motion. Back wound The pt states she had a blister that formed about 9 months s/t drug use. - wound culture pending. No growth 04/07. - wound care per wound nurse. Consult appreciated. Thrombus CT of the hand showed: Small thrombus within a vessel along the dorsal aspect of the wrist. - Symptomatic management as it is a superficial, distal thrombus. Thalassemia Iron deficiency anemia confirmed by labs. The pt states she has a history of thalassemia. At first hesitant to receive a blood transfusion but now willing. Transfused 1 unit 04/04/16. Hemoccult negative. - follow CBC. Improved. IV drug use For the past 6 months. The pt says she wishes to quit. - cessation instruction. - rn field case manager consult. PPx: SCDs. Discharge Planning Awaiting hand surgery and ID clearance. Reginald Houser DO Apr 07, 2016 15:02
[2016-04-07 16:00] VITALS: BP 118/68; PULSE 56; RESP 16; TEMP 97.4; O2SAT 96
--- NOTE | 2016-04-07 16:36 | HHI.PR ---
Subjective Remarks complains of mild pain over the right hand and wrist region Patient also states that swelling and pain has improved considerably no fever complaint with limb elevation Objective Vital Signs Date Time Temp Pulse Resp B/P Pulse Ox O2 Delivery O2 Flow Rate FiO2 04/07/16 14:00 18 04/07/16 12:00 97.5 57 16 117/69 95 04/07/16 10:36 20 04/07/16 08:00 96.9 54 16 115/59 98 04/07/16 00:00 97.4 70 16 113/57 97 04/06/16 20:00 98.0 69 16 116/59 96 I/O 04/06/16 04/06/16 04/06/16 04/07/16 04/07/16 04/07/16 07:00 15:00 23:00 07:00 15:00 23:00 Intake Total 1490 ml 1485 ml 302 ml 50 ml 50 ml Output Total 650 ml Balance 1490 ml 1485 ml 302 ml 50 ml -600 ml Intake Oral 580 ml 480 ml 240 ml 0 ml IV Total 910 ml 1005 ml 62 ml 50 ml 50 ml Output Urine Total 650 ml # Voids 3 3 4 3 # Bowel Movements 0 0 examination of left upper extremity: packing in place over the dorsal aspect of the hand decreased swelling no drainage left forearm/wrist: decreased swelling and redness induration noted no fluctuation able to make a fist, wrist range of motion, terminal degrees of flexion is limited and painful cultures from left hand abscess: no growth Result Diagram: 04/07/16 0446 04/05/16 0417 Assessment and Plan Assessment and Plan 45 year old female with iv drug abuse, cellulitis and abscess left hand and cellulitis wrist/forearm region s/p I and D hand Plan: dry dressing applied without packing after cleaning with alcohol wipes forearm and wrist swelling and redness have improved considerably no surgical intervention needed at present time cleared for discharge from hand surgery on po antibiotics and dressing changes to hand follow up in office in one week time. call [phone] for appointment. Yonathan Beth MD Apr 07, 2016 16:36
[2016-04-07 20:00] VITALS: BP 121/79; PULSE 76; RESP 17; TEMP 96; O2SAT 100
[2016-04-08] VITALS: BP 129/68; PULSE 77; RESP 17; TEMP 96; O2SAT 100
[2016-04-08] MEDS: HYDROmorphone HCL PF 1 MG/ML VIAL IV PUSH PRN ×3 (03:04→11:16)
[2016-04-08] MEDS: DOCUSATE SODIUM 100 MG CAP PO SCH (05:33)
[2016-04-08] MEDS: SENNOSIDES 8.6 MG TAB PO SCH (07:30)
[2016-04-08] MEDS: SODIUM CHLORIDE 0.9% FLUSH 5 ML FLUSH FLUSH SCH (07:31)
[2016-04-08] MEDS: ceFAZolin 2 GM PREMIX 50 ML IV SCH (07:31)
[2016-04-08] MEDS: BACITRACIN TOP OINT 15 GM TUBE TOP SCH (07:36)
[2016-04-08 08:00] VITALS: BP 114/72; PULSE 74; RESP 18; TEMP 96.9; O2SAT 97
--- NOTE | 2016-04-08 11:26 | HHI.DCPOC ---
Discharge Care Plan Diagnosis: (1) Abscess of right hand excluding fingers and thumb Goals to Promote Your Health * To prevent worsening of your condition and complications * To maintain your health at the optimal level Directions to Meet Your Goals Take your medications as prescribed Follow your dietary instruction Follow activity as directed Keep your appointments as scheduled Take your immunizations and boosters as scheduled If your symptoms worsen call your PCP, if no PCP go to Urgent Care Center or Emergency Room Smoking is Dangerous to Your Health. Avoid second hand smoke Call the 24-hour hour crisis hotline for domestic abuse at Oral Aguilar MD Apr 08, 2016 11:26
[2016-04-08] MEDS ORDERED: NORC5TAB PO ×2 (11:30→11:36)
[2016-04-08] MEDS ORDERED: BACI500O2 TOP (11:30)
[2016-04-08] MEDS ORDERED: CEPH500C PO (11:30)
--- NOTE | 2016-04-08 11:35 | HHI.DS ---
Discharge Summary Admission Date Apr 01, 2016 at 15:25 Discharge Date: Apr 08, 2016 Admitting Diagnosis R hand infection (1) Infection of right hand ICD Code: L08.9 Procedures I&D 04/04/16. Brief History - From Admission The patient is a 45-year-old female with a past medical history of chronic pain who is presenting to the hospital with right hand pain and swelling. The patient says over the past 6 months she started taking up IV drug use, including IV meth and IV Dilaudid. She says she has been injecting her hands. She says the last time she used IV drugs was 4 days ago. Over the past few days she has noticed her right hand becoming more and more swollen, red and painful. She says the pain is a 10 out of 10 in severity and that's why she came to the hospital today. She has felt feverish associated with it. She denies any shortness of breath. She says she has made the decision to try to quit using IV drugs. She says she started using IV drugs 6 months ago and that was because she lost her house and had to deal with chronic pain amongst other issues. She says she was homeless for a while but is now staying at a friend's house, but that friend also uses drugs. The patient is inquiring if she can eat anything. The patient also mentions that she has had sores pop up all over her body since she started using IV meth. CBC/BMP: 04/07/16 0446 04/05/16 0417 Significant Findings Laboratory Tests Test 04/07/16 04:46 Hemoglobin 8.4 GM/DL (11.6-15.3) Hematocrit 26.4 % (35.0-46.0) Mean Corpuscular Volume 61.4 FL (80.0-100.0) Mean Corpuscular Hemoglobin 19.4 PG (27.0-34.0) Mean Corpuscular Hemoglobin 31.7 % Concent (32.0-36.0) Red Cell Distribution Width 20.3 % (11.6-17.2) Monocytes (%) (Auto) 8.9 % (0.0-8.0) Eosinophils (%) (Auto) 5.8 % (0.0-4.0) Platelet Estimate HIGH (NORMAL) Imaging Last Impressions Upper Extremity CT 04/02/16 1743 Signed Impressions: Service Date/Time: Saturday, April 02, 2016 18:27 - CONCLUSION: 1. Cellulitic changes. 2. Small thrombus within a vessel along the dorsal aspect of the wrist. Yvan Sebastian MD Upper Extremity Ultrasound 04/01/16 0000 Signed Impressions: Service Date/Time: Friday, April 01, 2016 15:23 - CONCLUSION: 1. Soft tissue swelling and edematous changes at the back of the wrist and hand most characteristic of a cellulitis. Oseas Lewis MD PE at Discharge GENERAL: Well-nourished, well-developed female in no acute distress. HEENT: Normocephalic, atraumatic. Pupils equal, round and reactive. Extraocular movements intact. No scleral icterus. No injection or drainage. Oropharynx is clear. Mucous membranes are moist. CARDIOVASCULAR: Regular rate and rhythm without murmurs, gallops, or rubs. RESPIRATORY: Clear to auscultation. No wheezes, rales, or rhonchi. Breathing is non-labored. GASTROINTESTINAL: Abdomen soft, non-tender, nondistended. EXTREMITIES: No lower extremity edema. No calf tenderness. Right hand bandaged. PSYCH: Alert and oriented x 3. Pt update on day of discharge No complaints at this time. Wants to go home. Requesting pain medications at discharge. Hospital Course The patient was admitted for treatment of sepsis secondary to right hand infection. She developed the infection following IV drug abuse. She was started on IV vancomycin. Hand surgery and infectious disease were consulted. Incision and drainage of right hand abscess was done on 04/04/16. Culture grew group A beta strep. Antibiotics were adjusted. She improved clinically throughout the hospitalization. Patient was cleared for discharge by hand surgery and infectious disease. The patient was counseled regarding illicit drug abuse. Pt Condition on Discharge: Stable Discharge Disposition: Discharge Home Discharge Time: <= 30 minutes Discharge Instructions DIET: Follow Instructions for: As Tolerated, No Restrictions Activities you can perform: Regular-No Restrictions Follow up Referrals: Drug/Alcohol Rehab Hand Surgery - 1 Week with Yonathan Beth MD New Medications: Hydrocodone-Acetaminophen ([place]) 5-325 mg Tab 1 TAB PO Q6H PRN PAIN #15 Ref 0 TAB Bacitracin Topical (Bacitracin Topical) 500 Unit/Gm Oint 1 APPLIC TOP Q12HR Infection #15 Ref 0 GM Cephalexin (Cephalexin) 500 Mg Cap 500 MG PO Q6HR Infection #52 Ref 0 CAP Oral Aguilar MD Apr 08, 2016 11:35
[2016-04-08] MEDS ORDERED: CEPHALEXIN MONOHYDRATE 500 MG CAP PO SCH (12:00)
== END 2016-04-08 13:54 | disposition home or self-care (01) | DRG 872 ==
LOC: NEPC 11:35 → NEDA 15:25 → N07B 19:51
PROVIDERS: ADMIT Family Medicine; ATTEND Family Medicine
PROC: 0H9FXZZ Drainage of Right Hand Skin, External Approach (ICD-10-PCS; principal; 2016-04-04)
PROC: 30233N1 Transfusion of Nonautologous Red Blood Cells into Peripheral Vein, Percutaneous Approach (ICD-10-PCS; 2016-04-04)
DX: A41.9 Sepsis, unspecified organism (principal); I10 Essential (primary) hypertension; F15.20 Other stimulant dependence, uncomplicated; F17.210 Nicotine dependence, cigarettes, uncomplicated; D50.9 Iron deficiency anemia, unspecified; F32.9 Major depressive disorder, single episode, unspecified; L03.113 Cellulitis of right upper limb; L02.511 Cutaneous abscess of right hand; G62.9 Polyneuropathy, unspecified; G89.29 Other chronic pain; M54.2 Cervicalgia; M54.9 Dorsalgia, unspecified; J45.909 Unspecified asthma, uncomplicated; F19.24 Other psychoactive substance dependence with psychoactive substance-induced mood disorder; D56.9 Thalassemia, unspecified; B95.0 Streptococcus, group A, as the cause of diseases classified elsewhere
CPT/HCPCS: 36430; 73201; 76882; 80048; 80053; 80202; 82272; 82607; 82728; 82746; 83540; 83550; 83735; 85025; 85027; 85610; 85730; 86850; 86900; 86901; 86920; 87040; 87070; 87186; 87205; 96365; J0690; J1170; J2270; J3370; J7030; J7050; P9016; Q9967

== ENCOUNTER 2016-05-14 18:09 | Inpatient (IN) | payer OTHER, MEDICARE ==
[~2016-05-14] VITALS: Ht 160 cm; Wt 65.5 kg
[~2016-05-14 18:09] MED LIST changes: +BACI500O2 TOP; -BACT800T5 PO; -CEPH500 PO; +CEPH500C PO; -HYDR-3533 PO; +NORC5TAB PO; -VENL75 PO
[2016-05-14 18:12] VITALS: BP 126/80; PULSE 138; RESP 12; TEMP 100.5; O2SAT 96
[2016-05-14 21:00] VITALS: BP 128/73; PULSE 113; RESP 18; O2SAT 98
[2016-05-14] MEDS ORDERED: ONDANSETRON HCL 4 MG/2 ML VIAL IVP ONE (21:15)
[2016-05-14] MEDS ORDERED: HYDROmorphone HCL PF 1 MG/ML VIAL IVS ONE (21:15)
--- NOTE | 2016-05-14 21:30 | PD ---
HPI Chief Complaint: Pain: Acute or Chronic Time Seen by Provider: 21:07 Travel History International Travel<30 days: No Contact w/Intl Traveler<30days: No Traveled to known affect area: No History of Present Illness HPI This is a 45-year-old female with a history of cervical spine fusion several years ago, who reports with complaints of pain in her back and neck and numbness to her right arm. Patient states she fell forward one week ago. She says at that time she hurt her neck. When asked why she didn't come in earlier , the patient states that she should have but she doesn't have an answer at this time. She denies any weakness but does report numbness in her right arm and she also reports some numbness to her right foot. The patient has multiple bruises to her arms and legs. When asked about them, she states that she falls quite often. The patient denies any syncope. Her no other complaints time my examination. PFSH Past Medical History Asthma: Yes Depression: Yes Cancer: No Cardiovascular Problems: Yes Diminished Hearing: No Endocrine: No Genitourinary: No Hypertension: Yes Immune Disorder: No Musculoskeletal: Yes (CHRONIC NECK AND BACK PAIN) Neurologic: Yes (neuropathy) Reproductive: No Respiratory: Yes Immunizations Current: Yes Tetanus Vaccination: < 5 Years Influenza Vaccination: No ?: Not Social History Alcohol Use: No Tobacco Use: Yes (03/31 ppd) Substance Use: Yes (iv dilaudid and methamphetamine) Allergies-Medications (Allergen,Severity, Reaction): Coded Allergies: Penicillin (Verified Allergy, Intermediate, Rash, 04/04/16) Has taken Keflex without any problem Uncoded Allergies: chemical allergy (Allergy, Severe, anaphalactic, 09/27/12) Reported Meds & Prescriptions Reported Meds & Active Scripts Active Active Prescriptions or Reported Medications Unobtainable Review of Systems Except as stated in HPI: all other systems reviewed are Neg HENT: Positive: Neck Pain (stairs spinous), No: Headaches Cardiovascular: No: Chest Pain or Discomfort, Palpitations Respiratory: No: Cough, Shortness of Breath Gastrointestinal: No: Nausea, Vomiting Genitourinary: No: Urgency, Incontinence Musculoskeletal: Positive: Pain (low back), No: Weakness Neurologic: Positive: Sensory Disturbance (reported numbness to her right arm and right foot), No: Weakness, Syncope, Headache Physical Exam Narrative GENERAL: Well-developed, well-nourished patient in no acute respiratory distress. The patient is complaining of pain. SKIN: Warm and dry. HEAD: Atraumatic. Normocephalic. EYES: No scleral icterus. No injection or drainage. ENT: No nasal bleeding or discharge. Mucous membranes pink and moist. NECK: Trachea midline. No JVD. CARDIOVASCULAR: Rate in the high 90s low 100s with normal rhythm. No murmur appreciated. RESPIRATORY: No accessory muscle use. Clear to auscultation. Breath sounds equal bilaterally. GASTROINTESTINAL: Abdomen soft, non-tender, nondistended. MUSCULOSKELETAL: No obvious deformities. The patient has also pull excoriated areas on her legs and arms. She reports these are from mosquito bites that she' s been scratching. She denies any IVD drug use NEUROLOGICAL: Awake and alert. No obvious cranial nerve deficits. Motor grossly within normal limits. Normal speech. Patient subjectively has numbness to her right forearm and hand. Also noted in her right lower hernandez and upper foot. Data Data Last Documented VS Vital Signs Date Time Temp Pulse Resp B/P Pulse Ox O2 Delivery O2 Flow Rate FiO2 05/14/16 21:02 16 05/14/16 18:12 100.5 138 126/80 96 Room Air Orders Spine, Lumbar - Ltd (Ap & Lat) (05/14/16 21:12) Mri C Spine W/O Contrast (05/14/16 21:12) Ed Urine Pregnancytest Poc (05/14/16 21:12) Ondansetron Inj (Zofran Inj) (05/14/16 21:15) Hydromorphone Pf Inj (Dilaudid Pf Inj) (05/14/16 21:15) Complete Blood Count With Diff (05/14/16 21:30) Comprehensive Metabolic Panel (05/14/16 21:30) Blood Culture (05/14/16 21:30) Lactic Acid Sepsis Protocol (05/14/16 21:30) Ct Cerv Spine W/O Contrast (05/14/16 ) Npo After Midnight W/ Po Meds (05/15/16 Breakfast) Vancomycin Inj (Vancomycin Inj) (05/14/16 23:15) Ceftriaxone Inj (Rocephin Inj) (05/14/16 23:15) Clindamycin Inj (Cleocin Inj) (05/14/16 23:15) Admit Order (Ed Use Only) (05/14/16 23:15) Consult Neurosurgery (05/14/16 ) Labs Laboratory Tests Test 05/14/16 05/14/16 21:25 22:00 White Blood Count 19.4 TH/MM3 Red Blood Count 4.33 MIL/MM3 Hemoglobin 7.8 GM/DL Hematocrit 24.0 % Mean Corpuscular Volume 55.5 FL Mean Corpuscular Hemoglobin 18.1 PG Mean Corpuscular Hemoglobin 32.6 % Concent Red Cell Distribution Width 19.6 % Platelet Count 416 TH/MM3 Mean Platelet Volume 8.8 FL Neutrophils (%) (Auto) 90.6 % Lymphocytes (%) (Auto) 4.9 % Monocytes (%) (Auto) 3.1 % Eosinophils (%) (Auto) 1.3 % Basophils (%) (Auto) 0.1 % Neutrophils # (Auto) 17.6 TH/MM3 Lymphocytes # (Auto) 1.0 TH/MM3 Monocytes # (Auto) 0.6 TH/MM3 Eosinophils # (Auto) 0.3 TH/MM3 Basophils # (Auto) 0.0 TH/MM3 CBC Comment AUTO DIFF Differential Total Cells 100 Counted Neutrophils % (Manual) 80 % Band Neutrophils % 8 % Lymphocytes % 9 % Monocytes % 3 % Neutrophils # (Manual) 17.1 TH/MM3 Differential Comment FINAL DIFF MANUAL Platelet Estimate HIGH Platelet Morphology Comment NORMAL Target Cells 2+ Sodium Level 130 MEQ/L Potassium Level 3.8 MEQ/L Chloride Level 92 MEQ/L Carbon Dioxide Level 28.7 MEQ/L Anion Gap 9 MEQ/L Blood Urea Nitrogen 28 MG/DL Creatinine 0.74 MG/DL Estimat Glomerular Filtration 85 ML/MIN Rate Random Glucose 96 MG/DL Calcium Level 9.0 MG/DL Total Bilirubin 1.0 MG/DL Aspartate Amino Transf 59 U/L (AST/SGOT) Alanine Aminotransferase 18 U/L (ALT/SGPT) Alkaline Phosphatase 204 U/L Total Protein 7.6 GM/DL Albumin 2.0 GM/DL Lactic Acid Level 1.4 mmol/L [facility] Medical Decision Making Medical Screen Exam Complete: Yes Emergency Medical Condition: Yes Differential Diagnosis Lumbar and cervical contusion versus cord contusion versus abscess Narrative Course 45-year-old female who presents with complaints of neck pain and lower back pain. The patient reports a mechanical fall 1 week ago. The patient was noted to be low grade fever here. Patient's white count was 19,200. She had 80% segs and 8% bands. The patient denies any IVD drug use although looking through medical records, she's had multiple visits for infections. The patient has had previous infections in her cervical spine 2. An MRI was ordered of her cervical spine that shows an abscess in the prevertebral area is from C2 to T1. This was discussed with Dr. Aravind Oliver on-call neurosurgeon, who will need to take her to the operating room for debridement. We started her on vancomycin, ceftriaxone, clindamycin. Blood cultures have been obtained. Lactic acid was less than 2. There is a call out to Dr. Irvin Ha, on- call painter touch up, for admission. There is been a consult placed with Dr. Aravind Oliver. Diagnosis Primary Impression: prevertebral abscess of the cervical spine Additional Impression: Fever Scripts Unable to Obtain Active Prescriptions or Reported Meds Carson Cisneros MD May 14, 2016 21:30
[2016-05-14 22:08] LABS: AUTOMATED NEUTROPHIL # 17.6 TH/MM3 (1.8-7.7); BASOPHIL % 0.1 % (0.0-2.0); EOSINOPHIL # 0.3 TH/MM3 (0-0.4); EOSINOPHIL % 1.3 % (0.0-4.0); LYMPH % 4.9 % (9.0-44.0); MEAN CELL VOLUME 55.5 FL (80.0-100.0); MEAN CORPUSCULAR HEMOGLOBIN 18.1 PG (27.0-34.0); MEAN CORPUSCULAR HGB CONC 32.6 % (32.0-36.0); MONO % 3.1 % (0.0-8.0); NEUT % 90.6 % (16.0-70.0); PLATELET COUNT 416 TH/MM3 (150-450); RED BLOOD COUNT 4.33 MIL/MM3 (4.00-5.30); RED CELL DISTRIBUTION WIDTH 19.6 % (11.6-17.2); WHITE BLOOD COUNT 19.4 TH/MM3 (4.0-11.0)
[2016-05-14 22:15] LABS: HEMO FLAGS AUTO DIFF
--- NOTE | 2016-05-14 22:42 | RADRPT ---
EXAM DATE/TIME: 05/14/2016 22:07 [facility] COMPARISON: No previous studies available for comparison. INDICATIONS : Pain. Fell one week ago. MEDICAL HISTORY : Hypertension. SURGICAL HISTORY : Fusion, cervical. ENCOUNTER: Initial ACUITY: 1 week PAIN SCORE: 7/10 LOCATION: Neck TECHNIQUE: Multiplanar, multisequence MRI examination of the cervical spine was performed. FINDINGS: There is metallic hardware seen at the C4 through C6 levels. There also appears to be some suseptabil ity artifact at the C7-T1 disc level. The patient does appear to have a large suspected complex fluid collection extending from the C3 level down to the T1 level. This extends over a 6.3 cm length. It measures 2 cm in AP dimension and at least 4.9 cm in transverse dimension. It demonstrates mildly i ncreased signal on the T2 weighted images and intermediate signal on the T1 weighted images. C2-C3: Disc space intact. There is no spinal stenosis and neural foramina are normal. There is some facet h ypertrophy. C3-C4: There is a mild to moderate central disc protrusion abutting the anterior aspect of the cord. The ne ural foramina are normal. C4-C5: A significant impression on the thecal sac is not seen. The neural foramina are normal. C5-C6: A significant impression on the thecal sac is not seen. The neural foramina are normal. C6-C7: Disc space is narrowed. There is mild diffuse disc bulge and osteophytic ridging causing at least a m ild impression on the anterior aspect of the thecal sac. There neural foramina appear grossly intact . C7-T1: A significant impression on the thecal sac is not clearly seen. The neural foramina are normal. CONCLUSION: 1. Suspected complex fluid collection in the prevertebral soft tissues extending from C3 through T1. This could represent an evolving recent hemorrhage versus other causes for complex fluid collections including an abscess. 2. Susceptibility artifact presumably from hardware at the C4 through C6 levels. There is also some s usceptibility artifact at the C7-T1 disc space. 3. Mild to moderate central disc protrusion at the C3-C4 level. 4. Mild disc bulge at the C6-C7 level. Saqib Michele MD on May 14, 2016 at 22:26 Board Certified Radiologist. This report was verified electronically.
[2016-05-14 22:45] LABS: BANDS 8 % (0-6); NEUTROPHIL # MANUAL DIFF 17.1 TH/MM3 (1.8-7.7); POLYS (SEG NEUTROPHILS) 80 % (16-70); WBC DIFF SAMPLE 100
[2016-05-14 22:46] LABS: PLATELET ESTIMATE SMEAR HIGH (NORMAL); PLATELET MORPHOLOGY NORMAL (NORMAL); SCAN/DIFF FINAL DIFF MANUAL; TARGET CELLS 2+ (NORMAL)
[2016-05-14 22:50] LABS: ALKALINE PHOSPHATASE 204 U/L (45-117); ALT (GPT) 18 U/L (10-53); ANION GAP 9 MEQ/L (5-15); AST (GOT) 59 U/L (15-37); BICARBONATE 28.7 MEQ/L (21.0-32.0); BLOOD UREA NITROGEN 28 MG/DL (7-18); CHLORIDE 92 MEQ/L (98-107); GLOMERULAR FILTRATION RATE 85 ML/MIN (>89); SODIUM (NA) 130 MEQ/L (136-145)
[2016-05-14 22:51] LABS: POTASSIUM 3.8 MEQ/L (3.5-5.1)
[2016-05-14] MEDS ORDERED: VANCOMYCIN INJ 1,000 MG in SODIUM CHLOR 0.9% 250 ML INJ 250 ML IV ONE (23:15)
[2016-05-14] MEDS ORDERED: CLINDAMYCIN INJ 900 MG in SODIUM CHLORIDE 0.9% INJ 100 ML IV ONE (23:15)
[2016-05-14] MEDS ORDERED: cefTRIAXone INJ 1,000 MG in SODIUM CHLORIDE 0.9% INJ 100 ML IV ONE (23:15)
[2016-05-14] MEDS ORDERED: DEXTROSE 50% IN WATER 50 ML VIAL(D50) IV PUSH PRN (23:45)
[2016-05-14] MEDS ORDERED: POTASSIUM PHOSPHATE INJ 30 MMOL in SODIUM CHLOR 0.9% 250 ML INJ 250 ML IV PRN (23:45)
[2016-05-14] MEDS ORDERED: POTASSIUM CL 40 MEQ/30 ML LIQ UDC PO/TUBE PRN ×2 (23:45)
[2016-05-14] MEDS ORDERED: MAGNESIUM SULFATE INJ 4 GM in SODIUM CHLORIDE 0.9% INJ 92 ML IV PRN (23:45)
[2016-05-14] MEDS ORDERED: SODIUM PHOSPHATE INJ 30 MMOL in SODIUM CHLOR 0.9% 250 ML INJ 240 ML IV PRN (23:45)
[2016-05-14] MEDS ORDERED: MISCELLANEOUS NURSING INFORMATION XX SCH (23:45)
[2016-05-14] MEDS ORDERED: POTASSIUM PHOSPHATE MONOBASIC 500 MG TAB PO/TUBE PRN (23:45)
[2016-05-14] MEDS ORDERED: MAGNESIUM SULFATE INJ 2 GM in SODIUM CHLORIDE 0.9% INJ 96 ML IV PRN (23:45)
[2016-05-14] MEDS ORDERED: CHLORHEXIDINE GLUCONATE 2 % 1 PACK (2 CLOTHS) TOP PRN (23:45)
[2016-05-14] MEDS ORDERED: ONDANSETRON HCL 4 MG/2 ML VIAL IV PRN (23:45)
[2016-05-14] MEDS ORDERED: POTASSIUM PHOSPHATE MONOBASIC 500 MG TAB PO PRN (23:45)
[2016-05-14] MEDS ORDERED: SODIUM CHLORIDE 0.9% FLUSH 5 ML FLUSH IV FLUSH PRN (23:45)
[2016-05-14] MEDS ORDERED: MAGNESIUM OXIDE 400 MG TAB PO PRN (23:45)
[2016-05-14] MEDS ORDERED: POTASSIUM CHLOR 20 MEQ PREMIX 100 ML IV PRN ×2 (23:45)
[2016-05-14] MEDS ORDERED: POTASSIUM CHLOR 40 MEQ PREMIX 100 ML IV PRN ×2 (23:45)
--- NOTE | 2016-05-14 23:46 | HHI.HP ---
[facility] Service Critical Care Medicine Primary Care Physician Veronique Welsh MD Admission Diagnosis cervical epidural abscess, fever, tachycardia Diagnosis: Chief Complaint: weakness Travel History International Travel<30 Days: No Contact w/Intl Traveler <30 Da: No Traveled to Known Affected Are: No History of Present Illness This is a 45-year-old female with apparently a history of C-spine fusion several years ago who presented to the emergency department with complaints of neck and back pain, and numbness to her right arm. Patient states she fell approximately a week ago and her neck. She is in significant pain and distress and is moaning during my interview. Is very difficult to complete the interview due to her significant distress, and she refuses to provide much more information then this. In the emergency department she was noted to have a low- grade fever and elevated white blood cell count. Due to these, and MRI was ordered and demonstrates a large prevertebral cervical abscess. Dr. Oliver was called and is planning on surgically debriding this in the morning. Critical care medicine is consulted to evaluate and manage the patient's neurologic symptoms and cervical abscess. Review of Systems ROS Limitations: Clinical Condition ROS patient is moaning in pain, and will not participate in remainder of history. Past Family Social History Allergies: Coded Allergies: Penicillin (Verified Allergy, Intermediate, Rash, 04/04/16) Has taken Keflex without any problem Uncoded Allergies: chemical allergy (Allergy, Severe, anaphalactic, 09/27/12) Past Medical History Given the patient's significant distress, she will not participate fully in the history. The limited history I was able to obtain includes: Asthma Depression Hypertension Chronic neck and back pain Neuropathy Past Surgical History Given the patient's significant distress, she will not participate fully in the family history. I believe she has had prior C-spine fusion as well as a possible prior washout for a prior abscess. Reported Medications Given the patient's significant distress, she will not participate fully in her history. I am not sure what home medication she takes. Active Ordered Medications See MAR Family History Given the patient's significant distress, her family history is unobtainable. It is unlikely that it is contributory to her acute illness. 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 Smokes half pack per day. Denies EtOH. Physical Exam Vital Signs Vital Signs Date Time Temp Pulse Resp B/P Pulse Ox O2 Delivery O2 Flow Rate FiO2 05/14/16 21:02 16 05/14/16 18:12 100.5 138 12 126/80 96 Room Air Physical Exam GENERAL: Middle-aged female, lying in bed, severe distress due to pain HEENT: Normal cephalic. Atraumatic. Pupils equal, round, reactive, conjugate. NECK: Significant tenderness over midline posterior neck. No JVD. Trachea is midline. CHEST: Clear to auscultation. Equal chest rise. Mildly tachypneic. CARDIOVASCULAR: Tachycardic rate, regular rhythm. No appreciable murmurs. ABDOMEN: Soft, nontender, nondistended. No guarding. MUSCULOSKELETAL: No peripheral edema. Distal pulses 2+. NEUROLOGICAL: RASS +1. Follows commands all 4 extremities. She is noticeably weak in her bilateral upper extremities, however it appears on my examination that there may be a significant volitional component to her weakness in her upper extremities. It is very difficult to get an accurate neurologic exam given that she is moaning and rolling around in the bed in pain. Musculoskeletal strength 5/5 in bilateral lower extremity's. Laboratory Laboratory Tests Test 05/14/16 05/14/16 21:25 22:00 White Blood Count 19.4 Red Blood Count 4.33 Hemoglobin 7.8 Hematocrit 24.0 Mean Corpuscular Volume 55.5 Mean Corpuscular Hemoglobin 18.1 Mean Corpuscular Hemoglobin 32.6 Concent Red Cell Distribution Width 19.6 Platelet Count 416 Mean Platelet Volume 8.8 Neutrophils (%) (Auto) 90.6 Lymphocytes (%) (Auto) 4.9 Monocytes (%) (Auto) 3.1 Eosinophils (%) (Auto) 1.3 Basophils (%) (Auto) 0.1 Neutrophils # (Auto) 17.6 Lymphocytes # (Auto) 1.0 Monocytes # (Auto) 0.6 Eosinophils # (Auto) 0.3 Basophils # (Auto) 0.0 CBC Comment AUTO DIFF Differential Total Cells 100 Counted Neutrophils % (Manual) 80 Band Neutrophils % 8 Lymphocytes % 9 Monocytes % 3 Neutrophils # (Manual) 17.1 Differential Comment FINAL DIFF MANUAL Platelet Estimate HIGH Platelet Morphology Comment NORMAL Target Cells 2+ Sodium Level 130 Potassium Level 3.8 Chloride Level 92 Carbon Dioxide Level 28.7 Anion Gap 9 Blood Urea Nitrogen 28 Creatinine 0.74 Estimat Glomerular Filtration 85 Rate Random Glucose 96 Calcium Level 9.0 Total Bilirubin 1.0 Aspartate Amino Transf 59 (AST/SGOT) Alanine Aminotransferase 18 (ALT/SGPT) Alkaline Phosphatase 204 Total Protein 7.6 Albumin 2.0 Lactic Acid Level 1.4 Date/Time Procedure Status Source Growth 05/14/16 22:40 Aerobic Blood Culture Received Blood Peripheral Pending 05/14/16 22:40 Anaerobic Blood Culture Received Blood Peripheral Pending Result Diagram: 05/14/16212405/14/162124 Imaging Last 24 hours Impressions Cervical Spine MRI 05/14/162111 Signed Impressions: Service Date/Time: Saturday, May 14, 2016 22:07 - CONCLUSION: 1. Suspected complex fluid collection in the prevertebral soft tissues extending from C3 through T1. This could represent an evolving recent hemorrhage versus other causes for complex fluid collections including an abscess. 2. Susceptibility artifact presumably from hardware at the C4 through C6 levels. There is also some susceptibility artifact at the C7-T1 disc space. 3. Mild to moderate central disc protrusion at the C3-C4 level. 4. Mild disc bulge at the C6-C7 level. Saqib Michele MD Assessment and Plan Assessment and Plan Assessment: 45yF with history of prior IV drug abuse and now with cervical prevertebral abscess with possible neurologic sequelae. I agree she should be admitted for frequent neuro checks to the ICU. Plan: 1. Cervical Prevertebral Abscess --Dr. Oliver, neurosurgery following. Plan for operative intervention with debridement in the AM --Vanc/Clinda/Rocephin iv for broad spectrum coverage of abscess --blood cultures --q1h neuro checks --NPO at midnight. 2. Neck pain --dilaudid 0.5mg iv q4h prn. --SCDs for DVT prophylaxis. holding chemoprophylaxis for impending neurosurgical intervention --No indication for GI prophylaxis at this time Code Status Full Code Irvin Ha MD May 14, 2016 23:46
--- NOTE | 2016-05-14 23:58 | RADRPT ---
EXAM DATE/TIME: 05/14/2016 23:21 [facility] COMPARISON: MRI CERVICAL SPINE W/O CONTRAST, May 14, 2016, 22:07. INDICATIONS : Neck pain with right arm numbness. Fall 1 week ago. RADIATION DOSE: 21.38 CTDIvol (mGy) MEDICAL HISTORY : Cardiovascular disease. Hypertension. Asthma SURGICAL HISTORY : Fusion, cervical. ENCOUNTER: Initial ACUITY: 1 week PAIN SCALE: 10/10 LOCATION: neck TECHNIQUE: Volumetric scanning of the cervical spine was performed. Multiplanar reconstructions in the sagittal, coronal and oblique axial planes were performed. Using automated exposure control and adjustment o f the mA and/or kV according to patient size, radiation dose was kept as low as reasonably achievable to obtain optimal diagnostic quality images. FINDINGS: CT of the cervical spine was performed in sagittal and axial planes. There is straightening of the no rmal cervical lordosis which may be secondary positioning or spasm. No focal areas of marrow replacem ent are identified. The craniocervical junction appears normal. Axial images were performed from C2-C 3 through C7-T1. There is anterior cervical fusion with a plate anteriorly from C4-C5. There is multi level disc space narrowing and marginal osteophyte formation maximal at C6-C7 with previous anterior fusion. There is osteorathritis involving the atlantoaxial joint with sclerosis and osteophyte format ion. There is severe prevertebral soft tissue swelling measuring 5 CM in the transverse dimension 2.5 cm i n the anteroposterior dimension extending from C2-C3-C7. This bows the hypopharynx anteriorly but no tracheal stenosis is identified. C2-C3: No significant abnormalities identified. C3-C4: There is no evidence of disc protrusion or spinal canal stenosis. The neural foramina are clear bilat erally. C4-C5: Postsurgical changes as above. There is no significant spinal canal stenosis. The neural foramina are clear bilaterally. C5-C6: There is mild diffuse annular bulge of the disc. The neural foramina are clear bilaterally. There is no significant spinal canal stenosis. C6-C7: Postsurgical changes as above. There is no significant spinal canal stenosis. The neural foramina are clear bilaterally. C7-T1: No significant abnormalities identified. CONCLUSION: 1. Severe prevertebral soft tissue swelling as seen on the MRI examination which may reflect hemorrha ge or abscess. No bony destruction is seen to suggest osteomyelitis. No epidural soft tissue mass is evident. Zack Dumont MD on May 14, 2016 at 23:48 Board Certified Radiologist. This report was verified electronically.
[2016-05-15] VITALS (9 sets, daily range): BP systolic 96–140; BP diastolic 57–96; PULSE 91–114; RESP 16–30; TEMP 97.5–98.2; O2SAT 94–100
[2016-05-15] MEDS: HYDROmorphone HCL PF 1 MG/ML VIAL IV PRN ×6 (02:08→23:29)
[2016-05-15] MEDS: SODIUM CHLOR 0.9% 1000 ML INJ 1,000 ML IV SCH ×3 (02:22→23:29)
[2016-05-15] MEDS: CHLORHEXIDINE GLUCONATE 2 % 1 PACK (2 CLOTHS) TOP SCH (04:00)
[2016-05-15] MEDS ORDERED: Vancomycin Consult Pharmacy 1 EA OTHER SCH (05:15)
[2016-05-15 05:20] LABS: HEMATOCRIT 24.1 % (35.0-46.0); MEAN CORPUSCULAR HEMOGLOBIN 17.8 PG (27.0-34.0); MEAN CORPUSCULAR HGB CONC 31.7 % (32.0-36.0); PLATELET COUNT 400 TH/MM3 (150-450); RED BLOOD COUNT 4.31 MIL/MM3 (4.00-5.30); RED CELL DISTRIBUTION WIDTH 19.8 % (11.6-17.2); WHITE BLOOD COUNT 21.4 TH/MM3 (4.0-11.0)
[2016-05-15 05:32] LABS: REVIEW FLAG FINAL
[2016-05-15 05:46] LABS: BICARBONATE 27.9 MEQ/L (21.0-32.0); POTASSIUM 3.3 MEQ/L (3.5-5.1)
[2016-05-15] MEDS: INSULIN NovoLIN REGULAR SUPPLEMENTAL SCALE SQ SCH ×5 (06:00→23:42)
[2016-05-15] MEDS: CLINDAMYCIN INJ 900 MG in SODIUM CHLORIDE 0.9% INJ 100 ML IV SCH ×4 (06:24→23:29)
--- NOTE | 2016-05-15 07:37 | HHI.CCPN ---
Subjective Remarks/Hospital Course This is a 45-year-old female with apparently a history of C-spine fusion several years ago who presented to the emergency department with complaints of neck and back pain, and numbness to her right arm. Patient states she fell approximately a week ago and her neck. She is in significant pain and distress and is moaning during my interview. Is very difficult to complete the interview due to her significant distress, and she refuses to provide much more information then this. In the emergency department she was noted to have a low- grade fever and elevated white blood cell count. Due to these, and MRI was ordered and demonstrates a large prevertebral cervical abscess. Dr. Oliver was called and is planning on surgically debriding this in the morning. Critical care medicine is consulted to evaluate and manage the patient's neurologic symptoms and cervical abscess. 05/15: Patient c/o severe neck and back pain. Objective Vital Signs Date Time Temp Pulse Resp B/P Pulse Ox O2 Delivery O2 Flow Rate FiO2 05/15/16 06:00 108 16 140/76 98 Room Air 05/14/16 18:12 100.5 Result Diagram: 05/15/16 0501 05/15/16 0501 Imaging Last 24 hours Impressions Cervical Spine MRI 05/14/162111 Signed Impressions: Service Date/Time: Saturday, May 14, 2016 22:07 - CONCLUSION: 1. Suspected complex fluid collection in the prevertebral soft tissues extending from C3 through T1. This could represent an evolving recent hemorrhage versus other causes for complex fluid collections including an abscess. 2. Susceptibility artifact presumably from hardware at the C4 through C6 levels. There is also some susceptibility artifact at the C7-T1 disc space. 3. Mild to moderate central disc protrusion at the C3-C4 level. 4. Mild disc bulge at the C6-C7 level. Saqib Michele MD Objective Remarks GENERAL: Middle-aged female, lying in bed, severe distress due to pain HEENT: Normocephalic. Atraumatic. Pupils equal, round, reactive, conjugate. NECK: Significant tenderness over midline posterior neck. No JVD. Trachea is midline. CHEST: Clear to auscultation. Equal chest rise. Mildly tachypneic. CARDIOVASCULAR: Tachycardic rate, regular rhythm. No appreciable murmurs. ABDOMEN: Soft, nontender, nondistended. No guarding. BS active. MUSCULOSKELETAL: No peripheral edema. Distal pulses 2+. NEUROLOGICAL: O X 3. Conversant. Follows commands all 4 extremities. She is noticeably weak in her bilateral upper extremities, however it appears on my examination that there may be a significant volitional component to her weakness in her upper extremities. It is very difficult to get an accurate neurologic exam given that she is moaning and rolling around in the bed in pain. Musculoskeletal strength 5/5 in bilateral lower extremity's. A/P Assessment and Plan Assessment: 45yF with history of prior IV drug abuse and now with cervical prevertebral abscess with possible neurologic sequelae. I agree she should be admitted for frequent neuro checks to the ICU. Plan: 1. Cervical Prevertebral Abscess --Dr. Oliver, neurosurgery following. Plan for operative intervention with debridement in the AM --Vanc/Clinda/Rocephin iv for broad spectrum coverage of abscess --blood cultures --q1h neuro checks --NPO at midnight. 2. Neck pain --dilaudid 0.5mg iv q4h prn. --SCDs for DVT prophylaxis. holding chemoprophylaxis for impending neurosurgical intervention --Protonix --Increase analgesia, patient has tolerance issues from long-term use. --Hydrate. --NPO. Carson Abrams MD May 15, 2016 07:37
[2016-05-15] MEDS ORDERED: GENTAMICIN SULFATE 80 MG/2 ML VIAL ONE (08:07)
[2016-05-15] MEDS ORDERED: LIDOCAINE 1%/EPINEPHrine 1:100,000 SOLN 30 ML VIAL ONE (08:07)
[2016-05-15] MEDS ORDERED: GELFOAM SIZE 100 ONE (08:07)
[2016-05-15] MEDS ORDERED: THROMBIN (TOPICAL) 5,000 UNIT VIAL ONE ×2 (08:07→09:26)
[2016-05-15] MEDS ORDERED: MIDAZOLAM HCL 2 MG/2 ML VIAL ONE ×2 (08:25→08:28)
[2016-05-15] MEDS ORDERED: KETAMINE HCL 500 MG/5 ML VIAL ONE (08:25)
--- NOTE | 2016-05-15 08:50 | PD.CONS ---
History of Present Illness Service Neurosurgery Consult Requested By ED Dr. Cisneros Reason for Consult Neck abscess Primary Care Physician Veronique Welsh MD Diagnoses: History of Present Illness 45-year-old female admitted through the emergency room on the evening of 05/14/16 , who complains of approximately 1 week of neck pain since she fell a week ago. She states for the past 3 or 4 days she has noted severe increase in the neck pain as well as some paresthesias in the upper and lower extremities and aggressive somewhat diffuse spinal region pain as well as extremity pain and muscular discomfort. She complains of positive fever and chills in the past couple days. She states she has had some trouble walking in the past couple days due to the diffuse pain. No loss of bowel or bladder function. The patient was recently admitted to the hospital on 04/01/16 with a hand abscess secondary to IV drug use, with sepsis. Cultures grew group A beta strep. She was discharged after approximately a week of antibiotics. The patient does have a history of previous neck surgery in 2007 following an injury where she fell onto the floor. She has had some chronic neck pain and extremity paresthesias since that time. She has had numerous admissions in the past few years for skin infections, likely related to IV drug abuse. Review of Systems Constitutional: COMPLAINS OF: Fatigue, Fever, Chills Eyes: DENIES: Blurred vision, Diplopia, Vision loss Ears, nose, mouth, throat: COMPLAINS OF: Throat pain, DENIES: Hearing loss, Vertigo, Hoarseness Respiratory: DENIES: Cough, Sputum production, Shortness of breath Cardiovascular: DENIES: Chest pain Gastrointestinal: COMPLAINS OF: Difficulty Swallowing, DENIES: Abdominal pain , Diarrhea, Nausea, Vomiting Genitourinary: DENIES: Urinary incontinence, Urgency, Hematuria Musculoskeletal: COMPLAINS OF: Joint pain, Muscle aches, Stiffness, Joint Swelling, Back pain, Neck pain Hematologic/lymphatic: COMPLAINS OF: Bruising Neurologic: COMPLAINS OF: Abnormal gait, Paresthesias, Poor Balance Psychiatric: COMPLAINS OF: Anxiety Past Family Social History Allergies: Coded Allergies: Penicillin (Verified Allergy, Intermediate, Rash, 04/04/16) Has taken Keflex without any problem Uncoded Allergies: chemical allergy (Allergy, Severe, anaphalactic, 09/27/12) Past Medical History Denies cardiac, pulmonary, gastrointestinal disease, diabetes, hypertension, hyperlipidemia, thyroid disease. History of thalassemia Chronic neck pain Past Surgical History Previous ACDF 2007 in [place] Reported Medications Reported Meds & Active Scripts Active Active Prescriptions or Reported Medications Unobtainable Family History Negative cardiac disease cancer, diabetes Social History Smokes 5 cigarettes per day. Denies alcohol use States that she has not used any IV or other illicit drugs for the past month. Physical Exam Vital Signs Vital Signs Date Time Temp Pulse Resp B/P Pulse Ox O2 Delivery O2 Flow Rate FiO2 05/15/16 06:00 108 16 140/76 98 Room Air 05/15/16 04:00 91 16 113/66 98 Room Air 05/15/16 02:00 101 16 119/78 100 Room Air 05/15/16 00:36 98 18 107/57 98 Room Air 05/14/16 21:02 16 05/14/16 21:00 113 18 128/73 98 Room Air 05/14/16 18:12 100.5 138 12 126/80 96 Room Air Physical Exam GENERAL: Somewhat cachectic lady, painful and somewhat agitated SKIN: Multiple skin lesions and areas of ecchymosis throughout all extremities. Mild erythema and edema over the anterior neck with significant tenderness HEAD: Atraumatic. Normocephalic. No temporal or scalp tenderness. EYES: Sclerae are clear and nonicteric ENT: Nose without bleeding, purulent drainage. No facial edema. Edentulous. Throat without erythema.. Airway patent. No hoarseness of voice NECK: Mild anterior neck edema, erythema with significant tenderness. CARDIOVASCULAR: Regular rate and rhythm probable slight systolic murmur. No carotid bruit RESPIRATORY: Clear to auscultation. Breath sounds equal bilaterally. No wheezes , rales, or rhonchi. GASTROINTESTINAL: Abdomen soft, non-tender, nondistended. No hepato-splenomegaly , or palpable masses. No guarding. MUSCULOSKELETAL: Diffuse muscular discomfort to palpation all extremities. Ecchymosis was some edema right knee. Posterior tibial pulse 2+ bilateral. No other long bone or joint deformity noted. NEUROLOGICAL: Awake and alert Oriented X 3 Speech is clear Conversant Follow simple commands well Answers questions appropriately Reasonable judgment and insight Recent and remote memory are intact Appears very anxious, painful. Pupils are equal and reactive to accommodation. Extra-ocular movements, visual [place] to confrontation, facial sensorimotor, tongue, palate, sternocleidomastoid testing, hearing to finger rub testing, and bilateral shoulder shrug are all intact. Sensation to light touch indicates complaint of diffuse paresthesias throughout the upper and lower extremities Strength normal major flexion and extension groups in the upper extremities with approximately 3/5 hand intrinsics Strength within normal limits in the distal lower extremity major flexion and extension groups with some difficulty performing iliopsoas quadriceps and hamstring testing due to complaint of pain in the proximal lower extremity musculature with testing Ajith's positive right, absent left No ankle clonus Plantar responses absent bilateral Fine motor movements mild to moderately impaired in the upper extremities Laboratory Laboratory Tests Test 05/14/16 05/14/16 05/15/16 21:25 22:00 05:01 White Blood Count 19.4 21.4 Red Blood Count 4.33 4.31 Hemoglobin 7.8 7.7 Hematocrit 24.0 24.1 Mean Corpuscular Volume 55.5 56.0 Mean Corpuscular Hemoglobin 18.1 17.8 Mean Corpuscular Hemoglobin 32.6 31.7 Concent Red Cell Distribution Width 19.6 19.8 Platelet Count 416 400 Mean Platelet Volume 8.8 8.6 Neutrophils (%) (Auto) 90.6 Lymphocytes (%) (Auto) 4.9 Monocytes (%) (Auto) 3.1 Eosinophils (%) (Auto) 1.3 Basophils (%) (Auto) 0.1 Neutrophils # (Auto) 17.6 Lymphocytes # (Auto) 1.0 Monocytes # (Auto) 0.6 Eosinophils # (Auto) 0.3 Basophils # (Auto) 0.0 CBC Comment AUTO DIFF Differential Total Cells 100 Counted Neutrophils % (Manual) 80 Band Neutrophils % 8 Lymphocytes % 9 Monocytes % 3 Neutrophils # (Manual) 17.1 Differential Comment FINAL DIFF MANUAL Platelet Estimate HIGH Platelet Morphology Comment NORMAL Target Cells 2+ Sodium Level 130 132 Potassium Level 3.8 3.3 Chloride Level 92 96 Carbon Dioxide Level 28.7 27.9 Anion Gap 9 8 Blood Urea Nitrogen 28 27 Creatinine 0.74 0.63 Estimat Glomerular Filtration 85 103 Rate Random Glucose 96 107 Calcium Level 9.0 8.6 Total Bilirubin 1.0 Aspartate Amino Transf 59 (AST/SGOT) Alanine Aminotransferase 18 (ALT/SGPT) Alkaline Phosphatase 204 Total Protein 7.6 Albumin 2.0 Lactic Acid Level 1.4 Date/Time Procedure Status Source Growth 05/14/16 22:40 Aerobic Blood Culture Received Blood Peripheral Pending 05/14/16 22:40 Anaerobic Blood Culture Received Blood Peripheral Pending Result Diagram: 05/15/16 0501 05/15/16 0501 Imaging 05/14/16 MRI cervical spine and CT scan cervical spine images reviewed by the undersigned. Agree with findings as noted below: Cervical Spine MRI 05/14/162 Signed Impressions: Service Date/Time: Saturday, May 14, 2016 22:07 - CONCLUSION: 1. Suspected complex fluid collection in the prevertebral soft tissues extending from C3 through T1. This could represent an evolving recent hemorrhage versus other causes for complex fluid collections including an abscess. 2. Susceptibility artifact presumably from hardware at the C4 through C6 levels. There is also some susceptibility artifact at the C7-T1 disc space. 3. Mild to moderate central disc protrusion at the C3-C4 level. 4. Mild disc bulge at the C6-C7 level. Saqib Michele MD Cervical Spine CT 05/14/16 0000 Signed Impressions: Service Date/Time: Saturday, May 14, 2016 23:21 - CONCLUSION: 1. Severe prevertebral soft tissue swelling as seen on the MRI examination which may reflect hemorrhage or abscess. No bony destruction is seen to suggest osteomyelitis. No epidural soft tissue mass is evident. Zack Dumont MD Assessment and Plan Assessment and Plan Impression: 1. Neck abscess in patient with history of IV drug abuse, recent admission for hand infection with sepsis. 2. History thalassemia Plan: Findings were discussed at length with the patient. I advised her that it would be best to proceed with surgical intervention for drainage of the neck abscess. No definite osteomyelitis for neck epidural abscess at this point. However she will need to be watched closely for development of any infection within the spinal canal or neural structures. The surgical procedure, risks, possible complications of been fully discussed. Consents obtained and signed and witnessed. I have answered all of her questions. She appears to understand all the above and wishes to proceed with surgery. Further infectious disease evaluation will be needed. She is being followed by intensive care. PT and speech therapy evaluations. Aravind Oliver MD May 15, 2016 08:50
[2016-05-15] MEDS: DOCUSATE SODIUM 50 MG/SENNA 8.6 MG TAB PO SCH ×2 (09:00→19:55)
[2016-05-15] MEDS: SODIUM CHLORIDE 0.9% FLUSH 5 ML FLUSH IV FLUSH SCH ×2 (09:00→19:54)
[2016-05-15] MEDS: cefTRIAXone INJ 2,000 MG in SODIUM CHLORIDE 0.9% INJ 100 ML IV SCH ×2 (09:00→19:54)
[2016-05-15] MEDS ORDERED: GENTAMICIN SULFATE 80 MG/2 ML VIAL XX ONE (09:26)
[2016-05-15] MEDS ORDERED: fentaNYL CITRATE 250 MCG/5 ML AMP ONE (10:22)
[2016-05-15] MEDS ORDERED: DO NOT ADM ANY ANTICOAGULANT DRUGS XX PRN (10:45)
[2016-05-15] MEDS ORDERED: NALOXONE HCL 0.4 MG/ML AMP IV PRN (10:45)
[2016-05-15] MEDS ORDERED: SODIUM CHLORIDE 0.9% FLUSH 5 ML FLUSH IVF PRN (10:45)
[2016-05-15] MEDS ORDERED: ACETAMINOPHEN/HYDROcodone 325 MG/5 MG TAB PO PRN (10:45)
--- NOTE | 2016-05-15 10:49 | PD.OP ---
Operative Report Date of Surgery: May 15, 2016 Preoperative Diagnosis: (1) Neck abscess Neck abscess History IV drug abuse Postoperative Diagnosis: (1) Neck abscess Neck abscess History IV drug abuse Procedure: Evacuation prevertebral - retropharyngeal neck abscess Anesthesia: Gen. Surgeon: Aravind Oliver Sausage Linker(s): Melinda Bardales Operation and Findings: Findings: Large acute abscess in the retropharyngeal-prevertebral , extending down to the previous anterior cervical instrumentation. Approximately 40 cc total volume Procedure in detail: The patient was brought into the operating room and positioned in supine position on the 3080 table with the head and neck in neutral position. Enrique catheter was placed. Lines were established by Anesthesia. Gen. endotracheal anesthesia was induced without difficulty, taking care not to significantly flex or extend the patient's neck during intubation and positioning. All extremities were appropriately padded. The neck and upper chest were shaved with clippers and sterilely prepped and draped. Appropriate time-out procedure was performed with all personnel present and in agreement 1% Xylocaine with epinephrine was used for local infiltration over the incision site which was made transversely at the right C5 6 level and carried sharply down through the platysma muscle. The exposure was continued medial to the sternocleidomastoid muscle and carotid artery, and lateral to the trachea and esophagus. Careful dissection just medial to the right carotid artery lead directly into the abscess cavity, with copious amount of acute purulent material expressed. 10 cc of this was collected and sent for routine specimen. Abscess cavity was copiously irrigated with antibiotic irrigation until clear. Further inspection revealed relatively clean margins around the abscess cavity. The previous anterior cervical instrumentation was visualized and exposed. No obvious purulent material was noted to be coming forth from the intervertebral space. No significant bleeding was encountered. A 7 mm flat fluted drain was placed in the abscess cavity and brought out through a small incision in the lower right neck and secured with skin with nylon suture. The closure was performed with 3-0 Vicryl running for the platysma and interrupted for the subcutaneous closure, with 4-0 Vicryl running for the subcuticular closure. A dressing of sterile Mastisol, Steri-Strips, and Primapore dressing was placed. The patient was taken to recovery room in stable condition. All counts were correct at the end of the case. Estimated blood loss was 25 cc Specimen of the purulent was sent for routine microbiology Aravind Oliver MD May 15, 2016 10:49
--- NOTE | 2016-05-15 14:20 | RADRPT ---
EXAM DATE/TIME: 05/14/2016 21:48 [facility] COMPARISON: SPINE LUMBAR LTD (AP & LAT), July 01, 2014, 1:51. INDICATIONS : Patient fell last week and has had constant pain in lower back and c-spine. Pain radiates down both l egs. Patient states she had failed c-spine fusion prior. MEDICAL HISTORY : C-spine fusion. SURGICAL HISTORY : None. ENCOUNTER: Initial ACUITY: 1 week PAIN SCORE: 10/10 LOCATION: Bilateral L-spine. FINDINGS: There are six non rib bearing lumbar elements. This represents lumbarization of S1 which is a normal variant. There is rudimentary disc at the S1-S2 level. The lumbar vertebral bodies are normal in h eight. They are normally aligned. There is mild disc space narrowing at the L4-L5 level. The sacro iliac joints are intact. There is T-shaped IUD in place. CONCLUSION: Mild disc space narrowing at the L4-L5 level. Saqib Michele MD on May 14, 2016 at 22:05 Board Certified Radiologist. This report was verified electronically.
[2016-05-15] MEDS ORDERED: ePHEDrine/NS 25 MG/5 ML SYR IV ONE (14:24)
[2016-05-15] MEDS ORDERED: PROPOFOL 200 MG/20 ML AMP IV ONE (14:24)
[2016-05-15] MEDS ORDERED: NEOSTIGMINE 3 MG/3 ML SYR IV ONE (14:24)
[2016-05-15] MEDS ORDERED: ONDANSETRON HCL 4 MG/2 ML VIAL IV PUSH ONE (14:24)
[2016-05-15] MEDS ORDERED: LACTATED RINGER'S 1000 ML INJ 1,000 ML IV ONE (14:24)
[2016-05-15] MEDS: VANCOMYCIN 1,000 MG/NS 250 ML IV SCH ×2 (14:52)
[2016-05-15] MEDS: ACETAMINOPHEN/HYDROcodone 325 MG/10 MG TAB PO PRN ×2 (15:02→18:45)
[2016-05-15] MEDS: SODIUM CHLORIDE 0.9% FLUSH 5 ML FLUSH IVF SCH (19:54)
[2016-05-15] MEDS: MORPHINE SULFATE 30 MG CONTROLLED RELEASE TAB PO SCH (22:11)
[2016-05-16] VITALS (15 sets, daily range): BP systolic 109–159; BP diastolic 57–82; PULSE 106–124; RESP 15–24; TEMP 97.5–98.6; O2SAT 90–98
[2016-05-16] MEDS: VANCOMYCIN 1,000 MG/NS 250 ML IV SCH ×4 (01:36→14:58)
[2016-05-16] MEDS: ACETAMINOPHEN/HYDROcodone 325 MG/10 MG TAB PO PRN ×3 (01:36→18:40)
[2016-05-16] MEDS: HYDROmorphone HCL PF 1 MG/ML VIAL IV PRN ×7 (02:12→21:15)
[2016-05-16] MEDS: CHLORHEXIDINE GLUCONATE 2 % 1 PACK (2 CLOTHS) TOP SCH (03:13)
[2016-05-16 04:54] LABS: HEMATOCRIT 22.1 % (35.0-46.0); MEAN CELL VOLUME 55.9 FL (80.0-100.0); MEAN CORPUSCULAR HEMOGLOBIN 17.6 PG (27.0-34.0); MEAN CORPUSCULAR HGB CONC 31.5 % (32.0-36.0); PLATELET COUNT 317 TH/MM3 (150-450); RED BLOOD COUNT 3.95 MIL/MM3 (4.00-5.30); RED CELL DISTRIBUTION WIDTH 19.9 % (11.6-17.2)
[2016-05-16 04:55] LABS: REVIEW FLAG FINAL
[2016-05-16 05:03] LABS: BICARBONATE 27.5 MEQ/L (21.0-32.0); POTASSIUM 3.5 MEQ/L (3.5-5.1)
[2016-05-16] MEDS: INSULIN NovoLIN REGULAR SUPPLEMENTAL SCALE SQ SCH ×4 (05:31→23:49)
[2016-05-16] MEDS: CLINDAMYCIN INJ 900 MG in SODIUM CHLORIDE 0.9% INJ 100 ML IV SCH ×2 (05:53→12:00)
[2016-05-16] MEDS: cefTRIAXone INJ 2,000 MG in SODIUM CHLORIDE 0.9% INJ 100 ML IV SCH (08:45)
[2016-05-16] MEDS: MORPHINE SULFATE 30 MG CONTROLLED RELEASE TAB PO SCH ×2 (08:45→19:56)
[2016-05-16] MEDS: DOCUSATE SODIUM 50 MG/SENNA 8.6 MG TAB PO SCH ×2 (08:45→19:56)
[2016-05-16] MEDS: SODIUM CHLORIDE 0.9% FLUSH 5 ML FLUSH IV FLUSH SCH (08:45)
[2016-05-16] MEDS: SODIUM CHLORIDE 0.9% FLUSH 5 ML FLUSH IVF SCH ×2 (08:46→19:57)
[2016-05-16] MEDS: SODIUM CHLOR 0.9% 1000 ML INJ 1,000 ML IV SCH ×2 (11:23→23:18)
--- NOTE | 2016-05-16 12:58 | HHI.NSPN ---
History Chief Complaint: Pain all over Interval History 45-year-old female admitted through the emergency room on the evening of 05/14/16 , who complains of approximately 1 week of neck pain since she fell a week ago. She states for the past 3 or 4 days she has noted severe increase in the neck pain as well as some paresthesias in the upper and lower extremities and aggressive somewhat diffuse spinal region pain as well as extremity pain and muscular discomfort. She complains of positive fever and chills in the past couple days. She states she has had some trouble walking in the past couple days due to the diffuse pain. No loss of bowel or bladder function. The patient was recently admitted to the hospital on 04/01/16 with a hand abscess secondary to IV drug use, with sepsis. Cultures grew group A beta strep. She was discharged after approximately a week of antibiotics. The patient does have a history of previous neck surgery in 2007 following an injury where she fell onto the floor. She has had some chronic neck pain and extremity paresthesias since that time. She has had numerous admissions in the past few years for skin infections, likely related to IV drug abuse. 05/16/16: Pt awake and alert. Complains of pain all over but will fall asleep. Follows commands well. Agitated at times. Review of Systems General: Negative for: fever, chills, insomnia Respiratory: Negative for: shortness of breath, cough, sputum Cardiovascular: Negative for: chest pain Gastrointestinal: Negative for: nausea, vomitting, diarrhea, constipation Exam Results Vital Signs Date Time Temp Pulse Resp B/P Pulse Ox O2 Delivery O2 Flow Rate FiO2 05/16/16 10:00 115 05/16/16 09:06 97 Nasal Cannula 2.00 05/16/16 08:00 97.9 15 109/57 Intake and Output 05/15/16 05/15/16 05/16/16 08:00 16:00 00:00 Intake Total 2369 ml 1306 ml Output Total 325 ml 260 ml Balance 2044 ml 1046 ml Physical Examination Resp: CTA bilaterally Heart: NSR no murmurs Abd: Soft positive bs Skin: Pt with large wound on upper back with healthy looking pink tissue that is clean and dry with bandage overlying it. Anterior cervical incision clean and dry. MATEUS drain in place. Muscle: Moves all 4 extremities well. Neuro: Pt awake and alert. Follows simple commands. Pt at times agitated complains of pain all over but falls asleep. Pupils equal. Speech clear. Lab, Micro, Other Results Laboratory Tests Test 05/16/16 04:08 White Blood Count 20.0 TH/MM3 Red Blood Count 3.95 MIL/MM3 Hemoglobin 7.0 GM/DL Hematocrit 22.1 % Mean Corpuscular Volume 55.9 FL Mean Corpuscular Hemoglobin 17.6 PG Mean Corpuscular Hemoglobin 31.5 % Concent Red Cell Distribution Width 19.9 % Platelet Count 317 TH/MM3 Mean Platelet Volume 8.6 FL Sodium Level 135 MEQ/L Potassium Level 3.5 MEQ/L Chloride Level 99 MEQ/L Carbon Dioxide Level 27.5 MEQ/L Anion Gap 9 MEQ/L Blood Urea Nitrogen 30 MG/DL Creatinine 0.65 MG/DL Estimat Glomerular Filtration 99 ML/MIN Rate Random Glucose 111 MG/DL Calcium Level 8.4 MG/DL 05/15/16 05/15/16 05/16/16 15:00 23:00 07:00 Intake Total 2369 ml 1306 ml 872 ml Output Total 325 ml 260 ml 360 ml Balance 2044 ml 1046 ml 512 ml Intake Oral 0 ml 480 ml IV Total 1169 ml 826 ml 872 ml Other 1200 ml Output Urine Total 150 ml 250 ml 350 ml Drainage Total 10 ml 10 ml Estimated Blood Loss 25 ml Other 150 ml # Bowel Movements 0 0 Medical Decision Making Impression and Plan A: 45 y/o FM with 1. Neck abscess in patient with history of IV drug abuse, recent admission for hand infection with sepsis. s/p drainage by Dr. Oliver 2. History thalassemia Plan: Continue with current care MATEUS discontinued and steri strip placed at exit site. Continue with rehab efforts. Yvan Quesada May 16, 2016 12:58
[2016-05-16] MEDS ORDERED: PHARMACY ORDERED LAB XX ONE (13:45)
--- NOTE | 2016-05-16 16:21 | HHI.CCPN ---
Subjective Remarks/Hospital Course This is a 45-year-old female with apparently a history of C-spine fusion several years ago who presented to the emergency department with complaints of neck and back pain, and numbness to her right arm. Patient states she fell approximately a week ago and her neck. She is in significant pain and distress and is moaning during my interview. Is very difficult to complete the interview due to her significant distress, and she refuses to provide much more information then this. In the emergency department she was noted to have a low- grade fever and elevated white blood cell count. Due to these, and MRI was ordered and demonstrates a large prevertebral cervical abscess. Dr. Oliver was called and is planning on surgically debriding this in the morning. Critical care medicine is consulted to evaluate and manage the patient's neurologic symptoms and cervical abscess. 05/15: Patient c/o severe neck and back pain. 05/16: Pain problems persist - exacerbated by her developed tolerance. MRSA in abscess. Narrow abx coverage to vanc, adjust per ID. Objective Vital Signs Date Time Temp Pulse Resp B/P Pulse Ox O2 Delivery O2 Flow Rate FiO2 05/16/16 14:00 124 05/16/16 12:00 97.7 24 144/82 98 05/16/16 09:06 Nasal Cannula 2.00 Intake and Output 05/15/16 05/15/16 05/16/16 08:00 16:00 00:00 Intake Total 2369 ml 1306 ml Output Total 325 ml 260 ml Balance 2044 ml 1046 ml Result Diagram: 05/16/16 0408 05/16/16 0408 Imaging Last 24 hours Impressions Cervical Spine MRI 05/14/162111 Signed Impressions: Service Date/Time: Saturday, May 14, 2016 22:07 - CONCLUSION: 1. Suspected complex fluid collection in the prevertebral soft tissues extending from C3 through T1. This could represent an evolving recent hemorrhage versus other causes for complex fluid collections including an abscess. 2. Susceptibility artifact presumably from hardware at the C4 through C6 levels. There is also some susceptibility artifact at the C7-T1 disc space. 3. Mild to moderate central disc protrusion at the C3-C4 level. 4. Mild disc bulge at the C6-C7 level. Saqib Michele MD Objective Remarks GENERAL: Middle-aged female, lying in bed, severe distress due to pain HEENT: Normocephalic. Atraumatic. Pupils equal, round, reactive, conjugate. NECK: No JVD. Trachea is midline. CHEST: Clear to auscultation. Equal chest rise. Mildly tachypneic. CARDIOVASCULAR: Tachycardic rate, regular rhythm. No appreciable murmurs. ABDOMEN: Soft, nontender, nondistended. No guarding. BS active. MUSCULOSKELETAL: No peripheral edema. Distal pulses 2+. NEUROLOGICAL: O X 3. Conversant. Follows commands all 4 extremities. A/P Assessment and Plan Assessment: 45yF with history of prior IV drug abuse and now with cervical prevertebral abscess with possible neurologic sequelae. I agree she should be admitted for frequent neuro checks to the ICU. Plan: 1. Cervical Prevertebral Abscess --Dr. Oliver, neurosurgery following. Plan for operative intervention with debridement in the AM --Vanc/Clinda/Rocephin iv for broad spectrum coverage of abscess --blood cultures --q1h neuro checks 2. Neck pain --dilaudid 0.5mg iv q4h prn. --SCDs for DVT prophylaxis. holding chemoprophylaxis for impending neurosurgical intervention --Protonix --Increase analgesia, patient has tolerance issues from long-term use. --Hydrate. --NPO. Overall impression: Successful surgery. Care hampered by her tolerance to narcotic medication. Carson Abrams MD May 16, 2016 16:21
--- NOTE | 2016-05-16 17:49 | PD.ID.CON ---
History of Present Illness Service ID Consult Requested By Dr Oliver Reason for Consult cervical spine abscess Primary Care Physician Veronique Welsh MD Diagnoses: History of Present Illness 45-year-old female with a history of previous neck surgery in 2007 following an injury admitted through the emergency room on the evening of 05/14/16, complaining of approximately 1 week of neck pain since she fell a week ago. She noted severe increase in the neck pain paresthesias in the upper and lower extremities and back pain, fever and chills in the past couple days, some trouble walking in the past couple days due to the diffuse pain but no loss of bowel or bladder function. C spine MRI showed complex fluid collection in the prevertebral soft tissues extending from C3 through T1 She underwnt emergent suergery for drainage of epidural abscess. Op findings included: large acute abscess in the retropharyngeal-prevertebral , extending down to the previous anterior cervical instrumentation. Approximately 40 cc total volume Abscess and bl;ood cultures showed MRSA The patient was recently admitted to the hospital on 04/01/16 with a group A beta strep hand abscess secondary to IV drug use and sepsis. Review of Systems Except as stated in HPI: all other systems reviewed are Neg Past Family Social History Allergies: Coded Allergies: Penicillin (Verified Allergy, Intermediate, Rash, 04/04/16) Has taken Keflex without any problem *MDRO Multi-Drug Resistant Organism (Verified Adverse Reaction, Unknown, ) MRSA (blood) - 05/14/16 Uncoded Allergies: chemical allergy (Allergy, Severe, anaphalactic, 09/27/12) Past Medical History IVDU Past Surgical History Cspine fusion 2007 Active Ordered Medications Medications where reviewed in EMR Antibiotics Include: vancomycin Family History Non-Contributory. Social History No Tobacco. No ETOH. + IVDU : Iv meth, dilaudid Physical Exam Vital Signs Vital Signs Date Time Temp Pulse Resp B/P Pulse Ox O2 Delivery O2 Flow Rate FiO2 05/16/16 16:00 97.5 112 21 126/77 96 05/16/16 16:00 112 05/16/16 14:00 124 05/16/16 12:00 124 05/16/16 12:00 97.7 124 24 144/82 98 05/16/16 10:00 115 05/16/16 09:06 97 Nasal Cannula 2.00 05/16/16 08:00 97.9 106 15 109/57 98 05/16/16 08:00 106 05/16/16 07:00 98 Nasal Cannula 2.00 05/16/16 06:38 20 05/16/16 06:00 109 05/16/16 04:00 107 05/16/16 04:00 98.5 107 15 116/66 90 05/16/16 03:12 20 05/16/16 02:00 110 05/16/16 00:00 98.6 107 15 109/63 98 05/16/16 00:00 107 05/15/16 23:28 30 05/15/16 22:00 108 05/15/16 21:38 94 05/15/16 20:00 109 05/15/16 20:00 98.2 111 30 122/64 98 05/15/16 19:00 99 Room Air Physical Exam CONSTITUTIONAL/GENERAL: This is an adequately nourished patient, in apparent distress 2/2 pain TUBES/LINES/DRAINS: SKIN: No jaundice, rashes, or lesions. Ecchymoses and hyperpigmented lesions on lower extremities. No wounds seen anteriorly. Skin temperature appropriate. Not diaphoretic. HEAD: Atraumatic. Normocephalic. EYES: Pupils equal and round and reactive. Extraocular motions intact. No scleral icterus. No injection or drainage. Fundi not examined. ENT: Hearing grossly normal. Nose without bleeding or purulent drainage. Throat without visible erythema, exudates, masses, or lesions. Edentulous, dentures in place NECK: Trachea midline. Deressingin place on anterior neck wo drainage CARDIOVASCULAR: Regular rate and rhythm without murmurs, gallops, or rubs. No JVD. Peripheral pulses symmetric. RESPIRATORY/CHEST: Symmetric, unlabored respirations. Clear to auscultation. Breath sounds equal bilaterally. No wheezes, rales, or rhonchi. GASTROINTESTINAL: Abdomen soft, non-tender, nondistended. No hepato-splenomegaly , or palpable masses. No guarding. Bowel sounds present. GENITOURINARY: Without palpable bladder distension. Enrique catheter in place with clear yellow urine MUSCULOSKELETAL: Extremities without clubbing, cyanosis, or edema. No joint tenderness or effusion noted. No calf tenderness. No mottling or clubbing. LYMPHATICS: No palpable cervical or supraclavicular adenopathy. NEUROLOGICAL: Awake and alert. Motor and sensory grossly within normal limits. Follows commands. Cognitively sharp. Moves all extremities. PSYCHIATRIC: tearful Laboratory Laboratory Tests Test 05/16/16 05/16/16 04:08 15:20 White Blood Count 20.0 Red Blood Count 3.95 Hemoglobin 7.0 Hematocrit 22.1 Mean Corpuscular Volume 55.9 Mean Corpuscular Hemoglobin 17.6 Mean Corpuscular Hemoglobin 31.5 Concent Red Cell Distribution Width 19.9 Platelet Count 317 Mean Platelet Volume 8.6 Sodium Level 135 Potassium Level 3.5 Chloride Level 99 Carbon Dioxide Level 27.5 Anion Gap 9 Blood Urea Nitrogen 30 Creatinine 0.65 Estimat Glomerular Filtration 99 Rate Random Glucose 111 Calcium Level 8.4 Vancomycin Level Trough 8.1 Date/Time Procedure Status Source Growth 05/15/16 09:42 Gram Stain - Final Resulted Abscess Other 05/15/16 09:42 Wound Culture - Preliminary Resulted S. Aureus Mrsa 05/15/16 09:42 Fungal Smear - Final Resulted Abscess Other NO FUNGAL ELEMENTS SEEN. 05/15/16 09:42 Fungal Culture Resulted Abscess Other Pending 05/15/16 09:42 Acid Fast Stain - Final Resulted Abscess Other NO ACID FAST BACILLI SEEN 05/15/16 09:42 Mycobacterial Culture Resulted Abscess Other Pending 05/14/16 22:40 Aerobic Blood Culture - Preliminary Resulted Blood Peripheral S. Aureus Mrsa 05/14/16 22:40 Anaerobic Blood Culture - Preliminary Resulted S. Aureus Mrsa Result Diagram: 05/16/16 0408 05/16/16 0408 Imaging Last Impressions Cervical Spine MRI 05/14/162 Signed Impressions: Service Date/Time: Saturday, May 14, 2016 22:07 - CONCLUSION: 1. Suspected complex fluid collection in the prevertebral soft tissues extending from C3 through T1. This could represent an evolving recent hemorrhage versus other causes for complex fluid collections including an abscess. 2. Susceptibility artifact presumably from hardware at the C4 through C6 levels. There is also some susceptibility artifact at the C7-T1 disc space. 3. Mild to moderate central disc protrusion at the C3-C4 level. 4. Mild disc bulge at the C6-C7 level. Saqib Michele MD Cervical Spine CT 05/14/16 0000 Signed Impressions: Service Date/Time: Saturday, May 14, 2016 23:21 - CONCLUSION: 1. Severe prevertebral soft tissue swelling as seen on the MRI examination which may reflect hemorrhage or abscess. No bony destruction is seen to suggest osteomyelitis. No epidural soft tissue mass is evident. Zack Dumont MD Assessment and Plan Assessment and Plan IVDU, active MRSA Cspine abscess MASA bacteremia, high grade - repeat BC - 2 D echo, PTEER if 2 D echo negative - anticipate emt intermediate of IV abx - cont vancomycin Discussed Condition With Dina Abraham MD May 16, 2016 17:49
[2016-05-16] MEDS ORDERED: LORazepam 2 MG/ML VIAL IV PUSH ONE (22:15)
[2016-05-16] MEDS: RESP: ALBUTEROL 2.5 MG/IPRATROPIUM 0.5 MG NEB (PRN) INH (22:15)
[2016-05-17] VITALS (19 sets, daily range): BP systolic 123–175; BP diastolic 71–88; PULSE 106–126; RESP 18–28; TEMP 97–99.3; O2SAT 94–100
[2016-05-17] MEDS: CHLORHEXIDINE GLUCONATE 2 % 1 PACK (2 CLOTHS) TOP SCH (01:14)
[2016-05-17] MEDS: VANCOMYCIN 1,000 MG/NS 250 ML IV SCH ×2 (01:14)
[2016-05-17] MEDS: FUROSEMIDE 40 MG/4 ML VIAL ONE ×2 (02:43→02:45)
[2016-05-17] MEDS ORDERED: FUROSEMIDE 20 MG/2 ML VIAL IV PUSH ONE (02:45)
[2016-05-17] MEDS ORDERED: POTASSIUM CHLOR 20 MEQ PREMIX 100 ML IV ONE (02:45)
[2016-05-17 02:51] LABS: BLOOD GAS BASE EXCESS 2.1 mmol/L (-2-2); BLOOD GAS CARBOXYHEMOGLOBIN 0.9 % (0-4); BLOOD GAS HCO3 29 mmol/L (22-26); BLOOD GAS METHEMOGLOBIN 0.8 % (0-2); BLOOD GAS O2 HGB SATURATION 91 % (90-100); BLOOD GAS OXYGEN CONTENT 11.2 Vol % (12.0-20.0); BLOOD GAS PCO2 66 mmHg (38-42); BLOOD GAS PO2 81 mmHg (61-120); BLOOD GAS TOTAL HGB 8.6 G/DL (12.0-16.0); CRITICAL VALUE YES; TEMP CORR TO 98.6
[2016-05-17 02:52] LABS: DRAW SITE RT RADIAL; LITER FLOW 15 L/M; NUMBER OF ARTERIAL PUNCTURES 1; STAT NO; ULNAR PULSE PRESENT
--- NOTE | 2016-05-17 02:57 | RADRPT ---
EXAM DATE/TIME: 05/17/2016 02:48 [facility] COMPARISON: MRI CERVICAL SPINE W/O CONTRAST, May 14, 2016, 22:07. INDICATIONS : Shortness of breath. MEDICAL HISTORY : Hypertension. SURGICAL HISTORY : None. ENCOUNTER: Initial ACUITY: 1 day PAIN SCORE: Non-responsive. LOCATION: Bilateral chest FINDINGS: The cardiac silhouette is enlarged in transverse diameter. There is patchy alveolar disease bilateral ly compatible with edema or pneumonia. No pleural effusions are identified. CONCLUSION: 1. Extensive and diffuse bilateral alveolar disease characteristic of edema or pneumonia. Zack Dumont MD on May 17, 2016 at 2:55 Board Certified Radiologist. This report was verified electronically.
[2016-05-17 03:16] LABS: AUTOMATED NEUTROPHIL # 26.9 TH/MM3 (1.8-7.7); BASOPHIL # 0.1 TH/MM3 (0-0.2); BASOPHIL % 0.3 % (0.0-2.0); EOSINOPHIL # 0.1 TH/MM3 (0-0.4); EOSINOPHIL % 0.2 % (0.0-4.0); HEMATOCRIT 26.9 % (35.0-46.0); LYMPHOCYTE # 2.7 TH/MM3 (1.0-4.8); MEAN CELL VOLUME 55.9 FL (80.0-100.0); MEAN CORPUSCULAR HEMOGLOBIN 17.6 PG (27.0-34.0); MEAN CORPUSCULAR HGB CONC 31.4 % (32.0-36.0); MONO % 1.7 % (0.0-8.0); NEUT % 88.8 % (16.0-70.0); PLATELET COUNT 390 TH/MM3 (150-450); RED CELL DISTRIBUTION WIDTH 20.4 % (11.6-17.2); WHITE BLOOD COUNT 30.3 TH/MM3 (4.0-11.0)
[2016-05-17 03:23] LABS: HEMO FLAGS AUTO DIFF
[2016-05-17 04:27] LABS: BANDS 15 % (0-6); METAMYELOCYTES 1 % (0-1); NEUTROPHIL # MANUAL DIFF 29.7 TH/MM3 (1.8-7.7); POLYS (SEG NEUTROPHILS) 82 % (16-70); WBC DIFF SAMPLE 100
[2016-05-17 04:29] LABS: KERATOCYTES OCC (NORMAL); TARGET CELLS 2+ (NORMAL)
[2016-05-17 04:30] LABS: PLATELET ESTIMATE SMEAR NORMAL (NORMAL); PLATELET MORPHOLOGY NORMAL (NORMAL); SCAN/DIFF FINAL DIFF MANUAL
[2016-05-17 04:40] LABS: BICARBONATE 29.2 MEQ/L (21.0-32.0); POTASSIUM 3.8 MEQ/L (3.5-5.1)
[2016-05-17] MEDS: INSULIN NovoLIN REGULAR SUPPLEMENTAL SCALE SQ SCH ×3 (05:01→18:00)
[2016-05-17] MEDS: AZTREONAM INJ 2,000 MG in SODIUM CHLORIDE 0.9% INJ 100 ML IV SCH ×3 (05:05→20:28)
[2016-05-17] MEDS: HYDROmorphone HCL PF 1 MG/ML VIAL IV PRN (05:35)
[2016-05-17] MEDS ORDERED: MIDAZOLAM HCL 5 MG/ML VIAL (1 ML) ONE (07:30)
[2016-05-17] MEDS ORDERED: PROPOFOL 1000 MG/100 ML INJ 100 ML ONE ×2 (07:31→13:02)
[2016-05-17] MEDS ORDERED: ROCURONIUM INJ 50 MG/5 ML VIAL ONE (07:32)
--- NOTE | 2016-05-17 07:49 | HHI.NSPN ---
History Chief Complaint: s/p evacuation of cervical retropharyngeal abscess Interval History 45-year-old female admitted through the emergency room on the evening of 05/14/16 , who complains of approximately 1 week of neck pain since she fell a week ago. She states for the past 3 or 4 days she has noted severe increase in the neck pain as well as some paresthesias in the upper and lower extremities and aggressive somewhat diffuse spinal region pain as well as extremity pain and muscular discomfort. She complains of positive fever and chills in the past couple days. She states she has had some trouble walking in the past couple days due to the diffuse pain. No loss of bowel or bladder function. The patient was recently admitted to the hospital on 04/01/16 with a hand abscess secondary to IV drug use, with sepsis. Cultures grew group A beta strep. She was discharged after approximately a week of antibiotics. The patient does have a history of previous neck surgery in 2007 following an injury where she fell onto the floor. She has had some chronic neck pain and extremity paresthesias since that time. She has had numerous admissions in the past few years for skin infections, likely related to IV drug abuse. 05/16/16: Pt awake and alert. Complains of pain all over but will fall asleep. Follows commands well. Agitated at times. 05/17/16: Pt on bipap last night. She opens eyes and complains of pain all over. Follows commands well. System Review Comments Unable to obtain given clinical condition. Exam Results Vital Signs Date Time Temp Pulse Resp B/P Pulse Ox O2 Delivery O2 Flow Rate FiO2 05/17/16 06:10 25 05/17/16 06:00 93 Bi-Pap 50 05/17/16 06:00 112 05/17/16 04:00 97.0 134/71 05/16/16 23:00 13.00 Intake and Output 05/16/16 05/16/16 05/17/16 08:00 16:00 00:00 Intake Total 872 ml 1465 ml 480 ml Output Total 360 ml 460 ml 350 ml Balance 512 ml 1005 ml 130 ml Physical Examination Resp: CTA bilaterally. Pt on Bipap. Heart: NSR no murmurs Abd: Soft positive bs Skin: Pt with large wound on upper back with healthy looking pink tissue that is clean and dry with bandage overlying it. Anterior cervical incision clean and dry. Muscle: Moves all 4 extremities well. Neuro: Pt on bipap. She gets restless and agitated when woken up. She follows simple commands. Pupils equal. Lab, Micro, Other Results Laboratory Tests Test 05/16/16 05/17/16 05/17/16 15:20 02:15 03:00 Vancomycin Level Trough 8.1 MCG/ML Blood Gas Puncture Site RT RADIAL Blood Gas Patient Temperature 98.6 Blood Gas HCO3 29 mmol/L Blood Gas Base Excess 2.1 mmol/L Blood Gas Oxygen Saturation 91 % Arterial Blood pH 7.26 Arterial Blood Partial 66 mmHg Pressure CO2 Arterial Blood Partial 81 mmHg Pressure O2 Arterial Blood Oxygen Content 11.2 Vol % Arterial Blood 0.9 % Carboxyhemoglobin Arterial Blood Methemoglobin 0.8 % Blood Gas Hemoglobin 8.6 G/DL Oxygen Delivery Device Partial Rebreather Blood Gas Liter Flow 15 L/M Blood Gas Inspired Oxygen % White Blood Count 30.3 TH/MM3 Red Blood Count 4.80 MIL/MM3 Hemoglobin 8.4 GM/DL Hematocrit 26.9 % Mean Corpuscular Volume 55.9 FL Mean Corpuscular Hemoglobin 17.6 PG Mean Corpuscular Hemoglobin 31.4 % Concent Red Cell Distribution Width 20.4 % Platelet Count 390 TH/MM3 Mean Platelet Volume 8.4 FL Neutrophils (%) (Auto) 88.8 % Lymphocytes (%) (Auto) 9.0 % Monocytes (%) (Auto) 1.7 % Eosinophils (%) (Auto) 0.2 % Basophils (%) (Auto) 0.3 % Neutrophils # (Auto) 26.9 TH/MM3 Lymphocytes # (Auto) 2.7 TH/MM3 Monocytes # (Auto) 0.5 TH/MM3 Eosinophils # (Auto) 0.1 TH/MM3 Basophils # (Auto) 0.1 TH/MM3 CBC Comment AUTO DIFF Differential Total Cells 100 Counted Neutrophils % (Manual) 82 % Band Neutrophils % 15 % Lymphocytes % 2 % Neutrophils # (Manual) 29.7 TH/MM3 Metamyelocytes 1 % Differential Comment FINAL DIFF MANUAL Platelet Estimate NORMAL Platelet Morphology Comment NORMAL Target Cells 2+ Keratocytes OCC Sodium Level 135 MEQ/L Potassium Level 3.8 MEQ/L Chloride Level 97 MEQ/L Carbon Dioxide Level 29.2 MEQ/L Anion Gap 9 MEQ/L Blood Urea Nitrogen 23 MG/DL Creatinine 0.56 MG/DL Estimat Glomerular Filtration 118 ML/MIN Rate Random Glucose 105 MG/DL Calcium Level 9.0 MG/DL 05/16/16 05/16/16 05/17/16 15:00 23:00 07:00 Intake Total 1465 ml 480 ml 418 ml Output Total 460 ml 350 ml 1650 ml Balance 1005 ml 130 ml -1232 ml Intake Oral 650 ml 480 ml 0 ml IV Total 815 ml 0 ml 418 ml Output Urine Total 450 ml 350 ml 1650 ml Drainage Total 10 ml # Bowel Movements 0 0 0 Medical Decision Making Impression and Plan A: 45 y/o FM with 1. Neck abscess in patient with history of IV drug abuse, recent admission for hand infection with sepsis. s/p retropharyngeal abscess drainage by Dr. Oliver 2. History thalassemia Plan: Continue with current care Continue with rehab efforts. Continue with critical care. Yvan Quesada May 17, 2016 07:49
--- NOTE | 2016-05-17 08:23 | HHI.CCPN ---
Subjective Remarks/Hospital Course This is a 45-year-old female with apparently a history of C-spine fusion several years ago who presented to the emergency department with complaints of neck and back pain, and numbness to her right arm. Patient states she fell approximately a week ago and her neck. She is in significant pain and distress and is moaning during my interview. Is very difficult to complete the interview due to her significant distress, and she refuses to provide much more information then this. In the emergency department she was noted to have a low- grade fever and elevated white blood cell count. Due to these, and MRI was ordered and demonstrates a large prevertebral cervical abscess. Dr. Oliver was called and is planning on surgically debriding this in the morning. Critical care medicine is consulted to evaluate and manage the patient's neurologic symptoms and cervical abscess. 05/15: Patient c/o severe neck and back pain. 05/16: Pain problems persist - exacerbated by her developed tolerance. MRSA in abscess. Narrow abx coverage to vanc, adjust per ID. 05/17: Deteriorating respiratory status. Objective Vital Signs Date Time Temp Pulse Resp B/P Pulse Ox O2 Delivery O2 Flow Rate FiO2 05/17/16 07:50 98 100 05/17/16 06:10 25 05/17/16 06:00 Bi-Pap 05/17/16 06:00 112 05/17/16 04:00 97.0 134/71 05/16/16 23:00 13.00 Intake and Output 05/16/16 05/16/16 05/17/16 08:00 16:00 00:00 Intake Total 872 ml 1465 ml 480 ml Output Total 360 ml 460 ml 350 ml Balance 512 ml 1005 ml 130 ml Result Diagram: 05/17/16 0300 05/17/16 0300 Other Results Laboratory Tests Test 05/17/16 02:15 Blood Gas Puncture Site RT RADIAL Blood Gas Patient Temperature 98.6 Blood Gas HCO3 29 mmol/L (22-26) Blood Gas Base Excess 2.1 mmol/L (-2-2) Blood Gas Oxygen Saturation 91 % (90-100) Arterial Blood pH 7.26 (7.380-7.420) Arterial Blood Partial 66 mmHg (38-42) Pressure CO2 Arterial Blood Partial 81 mmHg Pressure O2 (61-120) Arterial Blood Oxygen Content 11.2 Vol % (12.0-20.0) Arterial Blood 0.9 % (0-4) Carboxyhemoglobin Arterial Blood Methemoglobin 0.8 % (0-2) Blood Gas Hemoglobin 8.6 G/DL (12.0-16.0) Oxygen Delivery Device Partial Rebreather Blood Gas Liter Flow 15 L/M Blood Gas Inspired Oxygen % Imaging Last 24 hours Impressions Cervical Spine MRI 05/14/162 Signed Impressions: Service Date/Time: Saturday, May 14, 2016 22:07 - CONCLUSION: 1. Suspected complex fluid collection in the prevertebral soft tissues extending from C3 through T1. This could represent an evolving recent hemorrhage versus other causes for complex fluid collections including an abscess. 2. Susceptibility artifact presumably from hardware at the C4 through C6 levels. There is also some susceptibility artifact at the C7-T1 disc space. 3. Mild to moderate central disc protrusion at the C3-C4 level. 4. Mild disc bulge at the C6-C7 level. Saqib Michele MD Objective Remarks GENERAL: Middle-aged female, lying in bed, severe distress due to pain HEENT: Normocephalic. Atraumatic. Pupils equal, round, reactive, conjugate. NECK: No JVD. Trachea is midline. Orally intubated. CHEST: Diffuse rhonchi. Equal chest rise. Severe tachypneic. CARDIOVASCULAR: Tachycardic rate, regular rhythm. No appreciable murmurs. ABDOMEN: Soft, nontender, nondistended. No guarding. BS active. MUSCULOSKELETAL: No peripheral edema. Distal pulses 2+. NEUROLOGICAL: Distress. Moves all 4 extremities. A/P Assessment and Plan Assessment: 45yF with history of prior IV drug abuse and now with cervical prevertebral abscess with possible neurologic sequelae. Plan: 1. Cervical Prevertebral Abscess --Dr. Oliver, neurosurgery following. --Vanc/Clinda/Rocephin iv for broad spectrum coverage of abscess --blood cultures --q1h neuro checks --[place] abscess drained 05/15 2. Neck pain --dilaudid 0.5mg iv q4h prn. -Fentanyl gtt. 3. Hypoxemic Respiratory Failure -Intubated 05/17. PRVC vent mode --Diffuse infiltrates - septic emboli vs fluid overload --SCDs for DVT prophylaxis. Start heparin sq. --Protonix --Increase analgesia, patient has tolerance issues from long-term use. --Hydrate. --NPO. NG to LIS. --PETER to look for vegetations Overall impression: Deteriorating respiratory function. She has become critically ill and required intubation and mechanical ventilation. Critical Care 45 mins aside from procedures Carson Abrams MD May 17, 2016 08:23
--- NOTE | 2016-05-17 08:26 | PD.PROCEDR ---
Procedure Note Procedure DX: Hypoxemic Respiratory Failure (J96.01) OP: 1. Intubation (32270) 2. Insertion Left Subclavian Central Venous Line (04435) Procedure: Bag mask ventilation for hypoxemic failure. Versed 10 mg and rocuronium 100 mg IC. Intubated orally with 7.5 tube. Position confirmed with CO2 detection, breath sounds, improved sats to 100%. Left chest prepped and draped. Left subclavian vein cannulated and wire easily advanced. Catheter passed over wire to 18 cm. Lumens aspirated and flushed. Dressing applied. CXR ordered, will review. Carson Abrams MD May 17, 2016 08:26
[2016-05-17] MEDS: BENEPROTEIN POWDER 1 PACK G-TUBE SCH ×3 (09:00→18:00)
[2016-05-17] MEDS: MORPHINE SULFATE 30 MG CONTROLLED RELEASE TAB PO SCH ×2 (09:00→20:28)
[2016-05-17] MEDS: DOCUSATE SODIUM 50 MG/SENNA 8.6 MG TAB PO SCH ×2 (09:00→20:27)
[2016-05-17] MEDS: SODIUM CHLORIDE 0.9% FLUSH 5 ML FLUSH IVF SCH ×2 (09:00→20:28)
--- NOTE | 2016-05-17 09:02 | RADRPT ---
EXAM DATE/TIME: 05/17/2016 08:42 [facility] COMPARISON: No previous studies available for comparison. INDICATIONS : Post intubation and central line placement. MEDICAL HISTORY : Hypertension. SURGICAL HISTORY : None. ENCOUNTER: Subsequent ACUITY: 2 days PAIN SCORE: Non-responsive. LOCATION: Bilateral chest FINDINGS: Diffuse airspace opacities persist. Accounting for differences in technique, I don't see a definite c hange. No large effusion seen. No pneumothorax. Patient is now intubated. Endotracheal tube tip is about 1 cm above the jason. There is a nasogastri c tube that is coiled in the stomach. Left subclavian central venous catheter present, tip in the sup erior vena cava.CONCLUSION: 1. Persistent diffuse bilateral airspace disease without significant change. 2. Endotracheal tube tip is close to the jason. Recommend pulling it back 1-2 cm. 3. Nasogastric tube tip is in the stomach. 4. Left subclavian central venous catheter tip is at the atriocaval junction. No pneumothorax. Saqib Herzog MD on May 17, 2016 at 8:59 Board Certified Radiologist. This report was verified electronically.
[2016-05-17] MEDS: fentaNYL DRIP 250 ML IV SCH ×2 (09:07→20:29)
[2016-05-17 09:52] LABS: BLOOD GAS VENOUS BASE EXCESS 2.6 mmol/L (-2-2); BLOOD GAS VENOUS HCO3 30 mmol/L (22-26); BLOOD GAS VENOUS O2 CONTENT 11.2 Vol % (9.0-17.0); BLOOD GAS VENOUS O2 HGB SAT 89 % (70-76); BLOOD GAS VENOUS PCO2 85 mmHg (44-48); BLOOD GAS VENOUS PO2 78 mmHg (35-40); BLOOD GAS VENOUS pH 7.18 (7.360-7.400); CRITICAL VALUE YES; DRAW SITE CENTRAL LINE; FIO2 100 %; OXYGEN DEVICE VENTILATOR; STAT NO; TEMP CORR TO 98.6; VENT SETTINGS PRVC/AC
[2016-05-17] MEDS: SODIUM CHLOR 0.9% 1000 ML INJ 1,000 ML IV SCH ×2 (11:13→23:08)
[2016-05-17 11:26] LABS: BLOOD GAS BASE EXCESS 6.1 mmol/L (-2-2); BLOOD GAS CARBOXYHEMOGLOBIN 0.8 % (0-4); BLOOD GAS HCO3 31 mmol/L (22-26); BLOOD GAS METHEMOGLOBIN 0.8 % (0-2); BLOOD GAS O2 HGB SATURATION 98 % (90-100); BLOOD GAS OXYGEN CONTENT 12.1 Vol % (12.0-20.0); BLOOD GAS PCO2 52 mmHg (38-42); BLOOD GAS PO2 411 mmHg (61-120); BLOOD GAS TOTAL HGB 7.9 G/DL (12.0-16.0); TEMP CORR TO 98.6
[2016-05-17 11:27] LABS: CRITICAL VALUE YES; DRAW SITE ART LINE; FIO2 100 %; OXYGEN DEVICE VENTILATOR; STAT NO; VENT SETTINGS PRVC/AC
[2016-05-17] MEDS: VANCOMYCIN INJ 1,250 MG in SODIUM CHLOR 0.9% 250 ML INJ 250 ML IV SCH (13:04)
--- NOTE | 2016-05-17 15:14 | EKG ---
Date Performed: 05/17/2016 Time Performed: 02:56:58 PTAGE: 45 years EKG: Sinus tachycardia Nonspecific ST change Borderline ECG NO PREVIOUS TRACING DOCTOR: Josemanuel Li Interpretating Date/Time 05/17/2016 15:11:57
[2016-05-17] MEDS: CHLORHEXIDINE 0.12% (ORAL KIT) 15 ML CUP MT SCH (20:00)
[2016-05-17] MEDS: PROPOFOL 1000 MG/100 ML INJ 100 ML IV SCH (20:29)
[2016-05-18] VITALS (17 sets, daily range): BP systolic 137–148; BP diastolic 61–82; PULSE 98–112; RESP 24–26; TEMP 98.1–101.3; O2SAT 100
[2016-05-18] MEDS: VANCOMYCIN INJ 1,250 MG in SODIUM CHLOR 0.9% 250 ML INJ 250 ML IV SCH ×2 (01:06→13:54)
[2016-05-18] MEDS: CHLORHEXIDINE GLUCONATE 2 % 1 PACK (2 CLOTHS) TOP SCH (03:43)
[2016-05-18] MEDS: PROPOFOL 1000 MG/100 ML INJ 100 ML IV SCH ×4 (03:43→20:10)
[2016-05-18] MEDS: AZTREONAM INJ 2,000 MG in SODIUM CHLORIDE 0.9% INJ 100 ML IV SCH ×3 (04:12→20:12)
[2016-05-18 04:56] LABS: HEMATOCRIT 21.8 % (35.0-46.0); MEAN CELL VOLUME 54.6 FL (80.0-100.0); MEAN CORPUSCULAR HEMOGLOBIN 17.5 PG (27.0-34.0); PLATELET COUNT 355 TH/MM3 (150-450); RED BLOOD COUNT 3.99 MIL/MM3 (4.00-5.30); REVIEW FLAG FINAL
[2016-05-18 05:18] LABS: BICARBONATE 33.6 MEQ/L (21.0-32.0); POTASSIUM 3.7 MEQ/L (3.5-5.1)
[2016-05-18] MEDS: INSULIN NovoLIN REGULAR SUPPLEMENTAL SCALE SQ SCH ×4 (05:58→18:00)
--- NOTE | 2016-05-18 06:55 | HHI.NSPN ---
History Chief Complaint: s/p evacuation of cervical retropharyngeal abscess Interval History 45-year-old female admitted through the emergency room on the evening of 05/14/16 , who complains of approximately 1 week of neck pain since she fell a week ago. She states for the past 3 or 4 days she has noted severe increase in the neck pain as well as some paresthesias in the upper and lower extremities and aggressive somewhat diffuse spinal region pain as well as extremity pain and muscular discomfort. She complains of positive fever and chills in the past couple days. She states she has had some trouble walking in the past couple days due to the diffuse pain. No loss of bowel or bladder function. The patient was recently admitted to the hospital on 04/01/16 with a hand abscess secondary to IV drug use, with sepsis. Cultures grew group A beta strep. She was discharged after approximately a week of antibiotics. The patient does have a history of previous neck surgery in 2007 following an injury where she fell onto the floor. She has had some chronic neck pain and extremity paresthesias since that time. She has had numerous admissions in the past few years for skin infections, likely related to IV drug abuse. 05/16/16: Pt awake and alert. Complains of pain all over but will fall asleep. Follows commands well. Agitated at times. 05/17/16: Pt on bipap last night. She opens eyes and complains of pain all over. Follows commands well. 05/18/16: Pt intubated. opens eyes to voice. Not following commands. Pupils equal. System Review Comments Not able to obtain given clinical condition. Exam Results Vital Signs Date Time Temp Pulse Resp B/P Pulse Ox O2 Delivery O2 Flow Rate FiO2 05/18/16 06:00 110 05/18/16 04:10 100 40 05/18/16 04:00 99.1 24 146/66 05/17/16 19:00 Mechanical Ventilator 05/16/16 23:00 13.00 Intake and Output 05/17/16 05/17/16 05/18/16 08:00 16:00 00:00 Intake Total 418 ml 365 ml 669 ml Output Total 1650 ml 600 ml 500.0 ml Balance -1232 ml -235 ml 169.0 ml Physical Examination Resp: CTA bilaterally. Intubated. Heart: NSR no murmurs Abd: mild distention. positive bs Skin: Anterior cervical incision clean and dry. Muscle: Moves all 4 extremities. Neuro: Pt intubated. She gets restless when woken up. Not following simple commands. Pupils equal. Lab, Micro, Other Results Last Impressions Chest X-Ray 05/17/16 0000 Signed Impressions: Service Date/Time: Tuesday, May 17, 2016 08:42 - CONCLUSION: 1. Persistent diffuse bilateral airspace disease without significant change. 2. Endotracheal tube tip is close to the jason. Recommend pulling it back 1-2 cm. 3. Nasogastric tube tip is in the stomach. 4. Left subclavian central venous catheter tip is at the atriocaval junction. No pneumothorax. Saqib Herzog MD Lumbar Spine X-Ray 05/14/162111 Signed Impressions: Service Date/Time: Saturday, May 14, 2016 21:48 - CONCLUSION: Mild disc space narrowing at the L4-L5 level. Saqib Michele MD Cervical Spine MRI 05/14/162111 Signed Impressions: Service Date/Time: Saturday, May 14, 2016 22:07 - CONCLUSION: 1. Suspected complex fluid collection in the prevertebral soft tissues extending from C3 through T1. This could represent an evolving recent hemorrhage versus other causes for complex fluid collections including an abscess. 2. Susceptibility artifact presumably from hardware at the C4 through C6 levels. There is also some susceptibility artifact at the C7-T1 disc space. 3. Mild to moderate central disc protrusion at the C3-C4 level. 4. Mild disc bulge at the C6-C7 level. Saqib Michele MD Cervical Spine CT 05/14/16 0000 Signed Impressions: Service Date/Time: Saturday, May 14, 2016 23:21 - CONCLUSION: 1. Severe prevertebral soft tissue swelling as seen on the MRI examination which may reflect hemorrhage or abscess. No bony destruction is seen to suggest osteomyelitis. No epidural soft tissue mass is evident. Zack Dumont MD Laboratory Tests Test 05/17/16 05/17/16 05/17/16 05/17/16 09:06 09:28 09:50 11:20 Blood Gas Puncture Site CENTRAL LINE ART LINE Blood Gas Patient Temperature 98.6 98.6 Venous Blood pH 7.18 Venous Blood Partial Pressure 85 mmHg CO2 Venous Blood Partial Pressure 78 mmHg O2 Venous Blood HCO3 30 mmol/L Venous Blood Oxygen Saturation 89 % Venous Blood Oxygen Content 11.2 Vol % Venous Blood Base Excess 2.6 mmol/L Oxygen Delivery Device VENTILATOR VENTILATOR Blood Gas Ventilator Setting PRVC/AC PRVC/AC Blood Gas Inspired Oxygen 100 % 100 % Lactic Acid Level 1.5 mmol/L B-Type Natriuretic Peptide 95 PG/ML Blood Gas HCO3 31 mmol/L Blood Gas Base Excess 6.1 mmol/L Blood Gas Oxygen Saturation 98 % Arterial Blood pH 7.39 Arterial Blood Partial 52 mmHg Pressure CO2 Arterial Blood Partial 411 mmHg Pressure O2 Arterial Blood Oxygen Content 12.1 Vol % Arterial Blood 0.8 % Carboxyhemoglobin Arterial Blood Methemoglobin 0.8 % Blood Gas Hemoglobin 7.9 G/DL Test 05/18/16 04:15 White Blood Count 20.0 TH/MM3 Red Blood Count 3.99 MIL/MM3 Hemoglobin 7.0 GM/DL Hematocrit 21.8 % Mean Corpuscular Volume 54.6 FL Mean Corpuscular Hemoglobin 17.5 PG Mean Corpuscular Hemoglobin 32.0 % Concent Red Cell Distribution Width 20.0 % Platelet Count 355 TH/MM3 Mean Platelet Volume 8.3 FL Sodium Level 141 MEQ/L Potassium Level 3.7 MEQ/L Chloride Level 103 MEQ/L Carbon Dioxide Level 33.6 MEQ/L Anion Gap 4 MEQ/L Blood Urea Nitrogen 23 MG/DL Creatinine 0.47 MG/DL Estimat Glomerular Filtration 144 ML/MIN Rate Random Glucose 114 MG/DL Calcium Level 9.2 MG/DL 05/17/16 05/17/16 05/18/16 15:00 23:00 07:00 Intake Total 365 ml 669 ml 911 ml Output Total 600 ml 500 ml 550 ml Balance -235 ml 169 ml 361 ml Intake Oral 0 ml IV Total 365 ml 464 ml 704 ml Tube Feeding 145 ml 207 ml Tube Irrigant 60 ml Output Urine Total 600 ml 500 ml 550 ml Tube Feeding Residual Discard 0 ml # Bowel Movements 0 0 0 Medical Decision Making Impression and Plan A: 45 y/o FM with 1. Neck abscess in patient with history of IV drug abuse, recent admission for hand infection with sepsis. s/p retropharyngeal abscess drainage by Dr. Oliver 2. History thalassemia Plan: Continue with current care Continue with rehab efforts. Continue with critical care. Yvan Quesada May 18, 2016 06:55
[2016-05-18] MEDS: MORPHINE SULFATE 30 MG CONTROLLED RELEASE TAB PO SCH ×2 (07:26→20:11)
[2016-05-18] MEDS: CHLORHEXIDINE 0.12% (ORAL KIT) 15 ML CUP MT SCH ×2 (08:00→20:12)
[2016-05-18] MEDS: DOCUSATE SODIUM 50 MG/SENNA 8.6 MG TAB PO SCH ×2 (08:39→20:10)
[2016-05-18] MEDS: fentaNYL DRIP 250 ML IV SCH (08:39)
[2016-05-18] MEDS: SODIUM CHLORIDE 0.9% FLUSH 5 ML FLUSH IVF SCH ×2 (08:40→20:11)
[2016-05-18] MEDS: BENEPROTEIN POWDER 1 PACK G-TUBE SCH ×3 (08:40→17:27)
[2016-05-18] MEDS: SODIUM CHLOR 0.9% 1000 ML INJ 1,000 ML IV SCH (11:03)
--- NOTE | 2016-05-18 11:26 | HHI.CCPN ---
Subjective Remarks/Hospital Course This is a 45-year-old female with apparently a history of C-spine fusion several years ago who presented to the emergency department with complaints of neck and back pain, and numbness to her right arm. Patient states she fell approximately a week ago and her neck. She is in significant pain and distress and is moaning during my interview. Is very difficult to complete the interview due to her significant distress, and she refuses to provide much more information then this. In the emergency department she was noted to have a low- grade fever and elevated white blood cell count. Due to these, and MRI was ordered and demonstrates a large prevertebral cervical abscess. Dr. Oliver was called and is planning on surgically debriding this in the morning. Critical care medicine is consulted to evaluate and manage the patient's neurologic symptoms and cervical abscess. 05/15: Patient c/o severe neck and back pain. 05/16: Pain problems persist - exacerbated by her developed tolerance. MRSA in abscess. Narrow abx coverage to vanc, adjust per ID. 05/17: Deteriorating respiratory status. 05/18: Required intubation and mechanical ventilation for deteriorating respiratory function and hypoxemia associated with bilateral lung infiltrates, likely septic. Objective Vital Signs Date Time Temp Pulse Resp B/P Pulse Ox O2 Delivery O2 Flow Rate FiO2 05/18/16 10:22 100 40 05/18/16 10:00 103 05/18/16 08:00 99.1 24 137/61 05/18/16 07:00 Mechanical Ventilator 05/16/16 23:00 13.00 Intake and Output 05/17/16 05/17/16 05/18/16 08:00 16:00 00:00 Intake Total 418 ml 365 ml 669 ml Output Total 1650 ml 600 ml 500.0 ml Balance -1232 ml -235 ml 169.0 ml Result Diagram: 05/18/16 0415 05/18/16 0415 Imaging Last 24 hours Impressions Cervical Spine MRI 05/14/162111 Signed Impressions: Service Date/Time: Saturday, May 14, 2016 22:07 - CONCLUSION: 1. Suspected complex fluid collection in the prevertebral soft tissues extending from C3 through T1. This could represent an evolving recent hemorrhage versus other causes for complex fluid collections including an abscess. 2. Susceptibility artifact presumably from hardware at the C4 through C6 levels. There is also some susceptibility artifact at the C7-T1 disc space. 3. Mild to moderate central disc protrusion at the C3-C4 level. 4. Mild disc bulge at the C6-C7 level. Saqib Michele MD Objective Remarks GENERAL: Middle-aged female, lying in bed, sedated for vent synchrony. HEENT: Normocephalic. Atraumatic. NECK: Trachea is midline. Orally intubated. CHEST: Diffuse rhonchi. Good maria ines air entry. CARDIOVASCULAR: Tachycardia, regular rhythm. No appreciable murmurs. No JVD. ABDOMEN: Soft, nontender, nondistended. No guarding. BS active. MUSCULOSKELETAL: No peripheral edema. Tepid but well perfused. NEUROLOGICAL: WILIAM. Moves all 4 extremities when light/. A/P Assessment and Plan Assessment: 45yF with history of prior IV drug abuse and now with cervical prevertebral abscess with possible neurologic sequelae. Plan: 1. Cervical Prevertebral Abscess --Dr. Oliver, neurosurgery following. --Vanc/Clinda/Rocephin iv for broad spectrum coverage of abscess -> narrowed to Vanc 05/16. --blood cultures --q1h neuro checks --Cervical abscess drained 05/15 2. Neck pain --dilaudid 0.5mg iv q4h prn. - Fentanyl gtt. 3. Hypoxemic Respiratory Failure -Intubated 05/17. PRVC vent mode --Diffuse infiltrates - septic emboli vs fluid overload --SCDs for DVT prophylaxis. Start heparin sq. --Protonix --Increase analgesia, patient has tolerance issues from long-term use. --Hydrate. --NPO. NG to LIS. --PETER to look for vegetations Overall impression: Deteriorating respiratory function due to bilateral lung infiltrates, likely septic emboli. She remains critically ill and has required intubation and mechanical ventilation. Behaving floridly septic and ongoing deterioration expected. Critical Care 42 mins aside from procedures Carson Abrams MD May 18, 2016 11:26
--- NOTE | 2016-05-18 12:49 | EC ---
Study Study Date:05/17/2016 STUDY CONCLUSIONS SUMMARY - Left ventricle: The cavity size was normal. Wall thickness was normal. Systolic function was normal. The estimated ejection fraction was in the range of 55% to 60%. Wall motion was normal; there were no regional wall motion abnormalities. Doppler parameters are consistent with abnormal left ventricular relaxation (grade 1 diastolic dysfunction). - Right ventricle: Systolic pressure was increased. - Tricuspid valve: Mild regurgitation. Impressions: Mobile structure at the level of right ventricular septal area VS tricuspid valve. Possible vegetation. PETER strongly recommended Recommendations: Transesophageal echocardiography should be performed in order to exclude ticuspid valve vegetation If LV function is below 40, please consider prescribing an ACEI or ARB or document rationale for non-use. PROCEDURE DATA STUDY STATUS: Elective. Procedure: Transthoracic echocardiography. Image quality was good. Scanning was performed from the parasternal, apical, and subcostal acoustic windows. Study completion: The patient tolerated the procedure well. Transthoracic echocardiography. M-mode, complete 2D, complete spectral Doppler, and color Doppler. Patient status: Inpatient. CARDIAC ANATOMY LEFT VENTRICLE: The cavity size was normal. Wall thickness was normal. Systolic function was normal. The estimated ejection fraction was in the range of 55% to 60%. Wall motion was normal; there were no regional wall motion abnormalities. Doppler parameters are consistent with abnormal left ventricular relaxation (grade 1 diastolic dysfunction). AORTIC VALVE: Trileaflet; normal thickness leaflets. Doppler: Transvalvular velocity was within the normal range. There was no stenosis. No regurgitation. Peak gradient: 12mm Hg (S). AORTA: Aortic root: The aortic root was normal in size. MITRAL VALVE: Structurally normal valve. Doppler: Transvalvular velocity was within the normal range. There was no evidence for stenosis. Trace regurgitation. Peak gradient: 4mm Hg (D). LEFT ATRIUM: The atrium was normal in size. RIGHT VENTRICLE: The cavity size was normal. Wall thickness was normal. Systolic pressure was increased. PULMONIC VALVE: Doppler: Transvalvular velocity was within the normal range. There was no evidence for stenosis. No regurgitation. TRICUSPID VALVE: Structurally normal valve. Doppler: Transvalvular velocity was within the normal range. Mild regurgitation. PULMONARY ARTERY: The main pulmonary artery was normal-sized. Systolic pressure was within the normal range. RIGHT ATRIUM: The atrium was normal in size. PERICARDIUM: There was no pericardial effusion. SYSTEMIC VEINS: Inferior vena cava: The vessel was normal in size. BASIC MEASUREMENTS ADULT Normal Left ventricle LV internal dimension, ED, chordal level, *53.6 mm 43-52 PLAX LV internal dimension, ES, chordal level, *41 mm 23-38 PLAX Fractional shortening, chordal level, PLAX *24 % >29 LV posterior wall thickness, ED 6.83 mm IVS/LVPW ratio, ED *1.51 <1.3 Ventricular septum Septal thickness, ED 10.3 mm Aortic valve Leaflet separation 23 mm 15-26 Left atrium Anterior-posterior dimension 29 mm Right ventricle RV internal dimension, ED, PLAX 25.8 mm 19-38 BASIC MEASUREMENTS ADULT Normal Aortic valve Leaflet separation 23 mm 15-26 Aorta Root diameter, ED 33 mm 20-37 DOPPLER MEASUREMENTS ADULT Normal Aortic valve Peak velocity, S 174 cm/s Peak gradient, S 12 mm Hg Mitral valve Peak E-wave velocity 96.3 cm/s Peak A-wave velocity 110 cm/s Peak gradient, D 4 mm Hg Peak E/A ratio 0.9 Tricuspid valve Regurgitant peak velocity 307 cm/s Peak RV-RA gradient, S 38 mm Hg Maximal regurgitant velocity 307 cm/s LEGEND: Mean values are shown as u=mean value. Asterisk (*) mercado values outside specified normal range. Prepared and signed by Rani David [id number]
--- NOTE | 2016-05-18 13:27 | HHI.IDPN ---
Subjective Subjective Remarks ID Xcover for 45-year-old female with a history of previous neck surgery in 2007 following an injury admitted through the emergency room on the evening of 05/14/16, complaining of approximately 1 week of neck pain since she fell a week ago. She noted severe increase in the neck pain paresthesias in the upper and lower extremities and back pain, fever and chills in the past couple days, some trouble walking in the past couple days due to the diffuse pain but no loss of bowel or bladder function. C spine MRI showed complex fluid collection in the prevertebral soft tissues extending from C3 through T1 She underwnt emergent suergery for drainage of epidural abscess. Op findings included: large acute abscess in the retropharyngeal-prevertebral , extending down to the previous anterior cervical instrumentation. Approximately 40 cc total volume Abscess and blood cultures showed MRSA. The patient was recently admitted to the hospital on 04/01/16 with a group A beta strep hand abscess secondary to IV drug use and sepsis. ID following for MRSA hardware infection/epidural abscess, MRSA sepsis possible endocarditis. Overnight events reviewed. Intubated for airway protection/resp failure Not on pressors. WBC at 30 k yday down to 20. Azactam added. No rash No diarrhea Urine outpt adequate. Plan for PETER in am. Antibiotics Azactam IV Vanco IV Lines Left SCL line site with no e/o infection. Past Medical History reviewed Allergies: Coded Allergies: Penicillin (Verified Allergy, Intermediate, Rash, 04/04/16) Has taken Keflex without any problem *MDRO Multi-Drug Resistant Organism (Verified Adverse Reaction, Unknown, ) MRSA (blood) - 05/14/16 Uncoded Allergies: chemical allergy (Allergy, Severe, anaphalactic, 09/27/12) Objective . Vital Signs Date Time Temp Pulse Resp B/P Pulse Ox O2 Delivery O2 Flow Rate FiO2 05/18/16 12:00 104 05/18/16 12:00 98.9 104 24 146/64 100 05/18/16 12:00 40 05/18/16 11:46 100 40 05/18/16 10:22 100 40 05/18/16 10:00 103 05/18/16 08:00 40 05/18/16 08:00 110 05/18/16 08:00 99.1 109 24 137/61 100 05/18/16 07:00 99 Mechanical Ventilator 40 05/18/16 06:00 110 05/18/16 04:10 100 40 05/18/16 04:00 40 05/18/16 04:00 108 05/18/16 04:00 99.1 108 24 146/66 100 05/18/16 02:00 107 05/18/16 02:00 107 05/18/16 01:59 100 40 05/18/16 00:00 40 05/18/16 00:00 107 05/18/16 00:00 107 05/18/16 00:00 99.9 108 26 146/66 100 05/17/16 22:33 100 40 05/17/16 22:00 108 05/17/16 22:00 108 05/17/16 20:00 99 40 05/17/16 20:00 98.7 109 24 143/71 99 05/17/16 20:00 108 05/17/16 20:00 40 05/17/16 20:00 109 05/17/16 19:00 99 Mechanical Ventilator 40 05/17/16 18:00 106 05/17/16 16:00 99.3 109 24 100 05/17/16 16:00 109 05/17/16 16:00 40 05/17/16 15:47 99 40 05/17/16 14:00 107 05/17/16 13:28 100 50 05/17/16 05/17/16 05/18/16 15:00 23:00 07:00 Intake Total 365 ml 669 ml 911 ml Output Total 600 ml 500 ml 550 ml Balance -235 ml 169 ml 361 ml Intake Oral 0 ml IV Total 365 ml 464 ml 704 ml Tube Feeding 145 ml 207 ml Tube Irrigant 60 ml Output Urine Total 600 ml 500 ml 550 ml Tube Feeding Residual Discard 0 ml # Bowel Movements 0 0 0 . Laboratory Tests Test 05/17/16 05/18/16 03:00 04:15 White Blood Count 30.3 TH/MM3 20.0 TH/MM3 Red Blood Count 4.80 MIL/MM3 3.99 MIL/MM3 Hemoglobin 8.4 GM/DL 7.0 GM/DL Hematocrit 26.9 % 21.8 % Mean Corpuscular Volume 55.9 FL 54.6 FL Mean Corpuscular Hemoglobin 17.6 PG 17.5 PG Mean Corpuscular Hemoglobin 31.4 % 32.0 % Concent Red Cell Distribution Width 20.4 % 20.0 % Platelet Count 390 TH/MM3 355 TH/MM3 Mean Platelet Volume 8.4 FL 8.3 FL Neutrophils (%) (Auto) 88.8 % Lymphocytes (%) (Auto) 9.0 % Monocytes (%) (Auto) 1.7 % Eosinophils (%) (Auto) 0.2 % Basophils (%) (Auto) 0.3 % Neutrophils # (Auto) 26.9 TH/MM3 Lymphocytes # (Auto) 2.7 TH/MM3 Monocytes # (Auto) 0.5 TH/MM3 Eosinophils # (Auto) 0.1 TH/MM3 Basophils # (Auto) 0.1 TH/MM3 CBC Comment AUTO DIFF Differential Total Cells 100 Counted Neutrophils % (Manual) 82 % Band Neutrophils % 15 % Lymphocytes % 2 % Neutrophils # (Manual) 29.7 TH/MM3 Metamyelocytes 1 % Differential Comment FINAL DIFF MANUAL Platelet Estimate NORMAL Platelet Morphology Comment NORMAL Target Cells 2+ Keratocytes OCC Laboratory Tests Test 05/17/16 05/17/16 05/17/16 05/18/16 03:00 09:28 09:50 04:15 Sodium Level 135 MEQ/L 141 MEQ/L Potassium Level 3.8 MEQ/L 3.7 MEQ/L Chloride Level 97 MEQ/L 103 MEQ/L Carbon Dioxide Level 29.2 MEQ/L 33.6 MEQ/L Anion Gap 9 MEQ/L 4 MEQ/L Blood Urea Nitrogen 23 MG/DL 23 MG/DL Creatinine 0.56 MG/DL 0.47 MG/DL Estimat Glomerular Filtration 118 ML/MIN 144 ML/MIN Rate Random Glucose 105 MG/DL 114 MG/DL Calcium Level 9.0 MG/DL 9.2 MG/DL Lactic Acid Level 1.5 mmol/L B-Type Natriuretic Peptide 95 PG/ML Microbiology Date/Time Procedure Status Source Growth 05/16/16 18:52 Aerobic Blood Culture Received Blood Peripheral Pending 05/16/16 18:52 Anaerobic Blood Culture Received Blood Peripheral Pending 05/16/16 21:53 Aerobic Blood Culture - Preliminary Resulted Blood Peripheral Gram Positive Cocci 05/16/16 21:53 Anaerobic Blood Culture - Preliminary Resulted Blood Peripheral NO GROWTH IN 2 DAYS 05/16/16 21:59 Aerobic Blood Culture - Preliminary Resulted Blood Peripheral Gram Positive Cocci 05/16/16 21:59 Anaerobic Blood Culture - Preliminary Resulted Blood Peripheral NO GROWTH IN 2 DAYS 05/17/16 09:28 Gram Stain - Final Resulted Sputum Endotracheal 05/17/16 09:28 Sputum Culture Resulted Sputum Endotracheal Pending Imaging Last Impressions Chest X-Ray 05/17/16 0000 Signed Impressions: Service Date/Time: Tuesday, May 17, 2016 08:42 - CONCLUSION: 1. Persistent diffuse bilateral airspace disease without significant change. 2. Endotracheal tube tip is close to the jason. Recommend pulling it back 1-2 cm. 3. Nasogastric tube tip is in the stomach. 4. Left subclavian central venous catheter tip is at the atriocaval junction. No pneumothorax. aSqib Herzog MD Lumbar Spine X-Ray 05/14/162111 Signed Impressions: Service Date/Time: Saturday, May 14, 2016 21:48 - CONCLUSION: Mild disc space narrowing at the L4-L5 level. Saqib Michele MD Cervical Spine MRI 05/14/162111 Signed Impressions: Service Date/Time: Saturday, May 14, 2016 22:07 - CONCLUSION: 1. Suspected complex fluid collection in the prevertebral soft tissues extending from C3 through T1. This could represent an evolving recent hemorrhage versus other causes for complex fluid collections including an abscess. 2. Susceptibility artifact presumably from hardware at the C4 through C6 levels. There is also some susceptibility artifact at the C7-T1 disc space. 3. Mild to moderate central disc protrusion at the C3-C4 level. 4. Mild disc bulge at the C6-C7 level. Saqib Michele MD Cervical Spine CT 05/14/16 0000 Signed Impressions: Service Date/Time: Saturday, May 14, 2016 23:21 - CONCLUSION: 1. Severe prevertebral soft tissue swelling as seen on the MRI examination which may reflect hemorrhage or abscess. No bony destruction is seen to suggest osteomyelitis. No epidural soft tissue mass is evident. Zack Dumont MD Physical Exam CONSTITUTIONAL/GENERAL: Thin built CF. SKIN: No jaundice, rashes, or lesions. Ecchymoses and hyperpigmented lesions on lower extremities. Track mercado on bilateral UEs. HEAD: Atraumatic. Normocephalic. EYES: Pupils equal and round and reactive. Extraocular motions intact. No scleral icterus. No injection or drainage. Fundi not examined. ENT: Hearing grossly normal. Nose without bleeding or purulent drainage. Throat without visible erythema, exudates, masses, or lesions. Edentulous, dentures in place NECK: Trachea midline. Surgical dressing in place on anterior neck wo drainage CARDIOVASCULAR: Hs audible. No murmur appreciated. RESPIRATORY/CHEST: Symmetric, unlabored respirations. Clear to auscultation. Breath sounds equal bilaterally. No wheezes, rales, or rhonchi. GASTROINTESTINAL: Abdomen soft, diffuse RUQ tenderness. GENITOURINARY: Without palpable bladder distension. Enrique catheter in place with clear yellow urine MUSCULOSKELETAL: Extremities without clubbing, cyanosis, or edema. LYMPHATICS: No palpable cervical or supraclavicular adenopathy. NEUROLOGICAL: Awake and alert. Motor and sensory grossly within normal limits. Follows commands. Cognitively sharp. Moves all extremities. PSYCHIATRIC: could not be assessed. IV line sites with no e/o infection. Left SCL line site ok. Assessment & Plan Remarks Severe Sepsis. MRSA C Spine abscess with hardware in place. MRSA bacteremia (MRSA MARIA ESTHER in both abscess and blood is 1) Probable endocarditis (Tricuspid vs RV mobile vegetation) acute resp failure: likely sepsis related encephalopathy ? aspiration Aspiration Pneumonia in health care setting. Acute metabolic encephalopathy: sepsis related, [employer] infection. IVDU, active Recs Repeat Blood cultures x 2 Cardiology consult PETER if feasible given recent neurosurgery. Recommend to d/w Neurosurgery if ok to perform PETER. Will d.w as well. Consider CT C/A/P to r/o disseminated foci of infection in liver and spleen. Vanco trough at 8 subtherapeutic. Adjusted trough to 15-20. Continue Azactam for now. Check CMP Check PT/INR and PTT Check Hepatitis profile and HIV antibody screen Check CRP will help with trending. Add Genta IV (Vanco synergy) till adequate vanco levels achieved and endocarditis workup pending. Add Rifampin (hardware infection for synergy for prosthetic infection, LFTs permitting this should be part of final regimen) Follow urine output while on genta IV. If bacteremia persists despite change in regimen consider changing central lines as it could be a continuing nidus of infection. Follow cultures Follow clinically to resume care in am. She Barth MD May 18, 2016 13:27
[2016-05-18] MEDS ORDERED: Gentamicin Consult Pharmacy 1 EA IV SCH (13:30)
[2016-05-18 14:38] LABS: ALT (GPT) 14 U/L (10-53); ANION GAP 5 MEQ/L (5-15); AST (GOT) 27 U/L (15-37); BICARBONATE 33.6 MEQ/L (21.0-32.0); BLOOD UREA NITROGEN 23 MG/DL (7-18); CHLORIDE 104 MEQ/L (98-107); GLOMERULAR FILTRATION RATE 151 ML/MIN (>89); POTASSIUM 3.7 MEQ/L (3.5-5.1); SODIUM (NA) 143 MEQ/L (136-145)
[2016-05-18 14:40] LABS: ALKALINE PHOSPHATASE 236 U/L (45-117); TOTAL BILIRUBIN ADULT 0.4 MG/DL (0.2-1.0)
[2016-05-18] MEDS: GENTAMICIN INJ 60 MG in SODIUM CHLORIDE 0.9% INJ 100 ML IV SCH (16:52)
[2016-05-18 17:40] LABS: APTT (PATIENT) 28.2 SEC (24.3-30.1); INTERNATIONAL NORMALIZED RATIO 1.1 RATIO; PROTHROMBIN TIME - PATIENT 11.8 SEC (9.8-11.6)
[2016-05-18] MEDS: RIFAMPIN 150 MG CAP PO SCH (20:10)
[2016-05-18] MEDS: ACETAMINOPHEN 325 MG TAB PO PRN (20:10)
[2016-05-19] VITALS (19 sets, daily range): BP systolic 115–157; BP diastolic 51–72; PULSE 83–124; RESP 24; TEMP 99.2–101.7; O2SAT 99–100
[2016-05-19] MEDS: GENTAMICIN INJ 60 MG in SODIUM CHLORIDE 0.9% INJ 100 ML IV SCH ×3 (01:21→15:39)
[2016-05-19] MEDS: SODIUM CHLOR 0.9% 1000 ML INJ 1,000 ML IV SCH ×3 (01:21→20:11)
[2016-05-19] MEDS: VANCOMYCIN INJ 1,500 MG in SODIUM CHLORID 0.9% 500 ML INJ 500 ML IV SCH ×2 (01:39→11:57)
[2016-05-19] MEDS: PROPOFOL 1000 MG/100 ML INJ 100 ML IV SCH ×6 (01:39→23:34)
[2016-05-19] MEDS: fentaNYL DRIP 250 ML IV SCH ×3 (01:39→21:11)
[2016-05-19] MEDS ORDERED: PHARMACY ORDERED LAB XX ONE ×3 (01:45→23:45)
[2016-05-19] MEDS: CHLORHEXIDINE GLUCONATE 2 % 1 PACK (2 CLOTHS) TOP SCH (04:00)
[2016-05-19] MEDS: AZTREONAM INJ 2,000 MG in SODIUM CHLORIDE 0.9% INJ 100 ML IV SCH ×2 (04:11→11:55)
[2016-05-19] MEDS: ACETAMINOPHEN 325 MG TAB PO PRN ×2 (04:11→09:40)
[2016-05-19 05:40] LABS: MEAN CORPUSCULAR HEMOGLOBIN 17.5 PG (27.0-34.0); MEAN CORPUSCULAR HGB CONC 32.4 % (32.0-36.0); PLATELET COUNT 317 TH/MM3 (150-450); RED BLOOD COUNT 3.51 MIL/MM3 (4.00-5.30); RED CELL DISTRIBUTION WIDTH 19.8 % (11.6-17.2); WHITE BLOOD COUNT 14.4 TH/MM3 (4.0-11.0)
[2016-05-19 05:44] LABS: REVIEW FLAG FINAL
[2016-05-19 05:47] LABS: HEMATOCRIT 18.9 % (35.0-46.0)
[2016-05-19] MEDS: INSULIN NovoLIN REGULAR SUPPLEMENTAL SCALE SQ SCH ×4 (06:00→18:00)
[2016-05-19 06:21] LABS: BICARBONATE 33.4 MEQ/L (21.0-32.0); POTASSIUM 3.4 MEQ/L (3.5-5.1)
[2016-05-19] MEDS: MORPHINE SULFATE 30 MG CONTROLLED RELEASE TAB PO SCH ×2 (08:07→20:10)
[2016-05-19] MEDS ORDERED: SODIUM CHLOR 0.9% 250 ML INJ 250 ML IV ONE (08:45)
[2016-05-19] MEDS: BENEPROTEIN POWDER 1 PACK G-TUBE SCH ×3 (09:00→17:26)
--- NOTE | 2016-05-19 09:11 | HHI.CCPN ---
Subjective Remarks/Hospital Course This is a 45-year-old female with apparently a history of C-spine fusion several years ago who presented to the emergency department with complaints of neck and back pain, and numbness to her right arm. Patient states she fell approximately a week ago and her neck. She is in significant pain and distress and is moaning during my interview. Is very difficult to complete the interview due to her significant distress, and she refuses to provide much more information then this. In the emergency department she was noted to have a low- grade fever and elevated white blood cell count. Due to these, and MRI was ordered and demonstrates a large prevertebral cervical abscess. Dr. Oliver was called and is planning on surgically debriding this in the morning. Critical care medicine is consulted to evaluate and manage the patient's neurologic symptoms and cervical abscess. 05/15: Patient c/o severe neck and back pain. 05/16: Pain problems persist - exacerbated by her developed tolerance. MRSA in abscess. Narrow abx coverage to vanc, adjust per ID. 05/17: Deteriorating respiratory status. 05/18: Required intubation and mechanical ventilation for deteriorating respiratory function and hypoxemia associated with bilateral lung infiltrates, likely septic. 05/19: Remains sedated, orally intubated on mechanical ventilation. A 2-D echo done on 05/17 revealed mobile structure near right ventricular septal area versus tricuspid valve, PETER strongly recommended to evaluate for tricuspid valve vegetation. Patient is awaiting PETER today. Hemoglobin 6.1 down from 7. No melena or rectal bleeding per RN. No hypotension. Objective Vital Signs Date Time Temp Pulse Resp B/P Pulse Ox O2 Delivery O2 Flow Rate FiO2 05/19/16 08:01 100 40 05/19/16 07:00 Mechanical Ventilator 05/19/16 06:00 100 05/19/16 05:28 24 05/19/16 04:00 101.3 157/72 05/16/16 23:00 13.00 Intake and Output 05/18/16 05/18/16 05/19/16 08:00 16:00 00:00 Intake Total 911 ml 1220 ml 1114 ml Output Total 550.0 ml 500.0 ml 400 ml Balance 361.0 ml 720.0 ml 714 ml Result Diagram: 05/19/16 0512 05/19/16 0512 Imaging Last 24 hours Impressions Cervical Spine MRI 05/14/162111 Signed Impressions: Service Date/Time: Saturday, May 14, 2016 22:07 - CONCLUSION: 1. Suspected complex fluid collection in the prevertebral soft tissues extending from C3 through T1. This could represent an evolving recent hemorrhage versus other causes for complex fluid collections including an abscess. 2. Susceptibility artifact presumably from hardware at the C4 through C6 levels. There is also some susceptibility artifact at the C7-T1 disc space. 3. Mild to moderate central disc protrusion at the C3-C4 level. 4. Mild disc bulge at the C6-C7 level. Saqib Michele MD Objective Remarks GENERAL: Middle-aged female, lying in bed, sedated for vent synchrony. HEENT: Normocephalic. Atraumatic. NECK: Trachea is midline. Orally intubated. CHEST: Diffuse rhonchi. Good maria ines air entry. CARDIOVASCULAR: Tachycardia, regular rhythm. No appreciable murmurs. No JVD. ABDOMEN: Soft, nontender, nondistended. No guarding. BS active. MUSCULOSKELETAL: No peripheral edema. Tepid but well perfused. NEUROLOGICAL: WILIAM. Moves all 4 extremities on lightening sedation. Urinary Catheter: Yes Assessment to: Continue A/P Assessment and Plan Assessment: 45yF with history of prior IV drug abuse and now with cervical prevertebral abscess with possible neurologic sequelae. Plan: 1. Cervical Prevertebral Abscess --Dr. Oliver, neurosurgery following. --Vanc/Clinda/Rocephin iv for broad spectrum coverage of abscess -> narrowed to Vanc 05/16. Gentamycin/ Rifampin added per ID on 05/18 --blood cultures with MRSA --Continue neuro checks --Cervical abscess drained 05/15 2. Neck pain --dilaudid 0.5mg iv q4h prn. - Fentanyl gtt. 3. Hypoxemic Respiratory Failure -Intubated 05/17. PRVC vent mode --Diffuse infiltrates - septic emboli vs fluid overload --SCDs for DVT prophylaxis. Start heparin sq. --Protonix --Increase analgesia, patient has tolerance issues from long-term use. --Hydrate. --NPO. NG to LIS. --PETER to look for vegetations 4. Anemia Plan is hypochromic normocytic anemia consistent with chronic iron deficiency. We'll check iron studies. One unit PRBCs to be transfused now. IV iron sucrose 100mg IV daily x 10 days to replete marrow stores. 5. Sepsis MRSA bacteremia MRSA in sputum secondary to probable septic emboli. Suspected endocarditis 2-D echo with suspected mobile vegetation in RV septal area versus tricuspid valve, PETER pending. Overall impression: Deteriorating respiratory function due to bilateral lung infiltrates, likely septic emboli. She remains critically ill and has required intubation and mechanical ventilation. Behaving floridly septic. Workup for endocarditis in progress. Critical Care 40 mins aside from procedures Raza Barth MD May 19, 2016 09:11
[2016-05-19] MEDS ORDERED: MAGNESIUM HYDROXIDE SUSP 30 ML CUP PO PRN (09:15)
[2016-05-19] MEDS: CHLORHEXIDINE 0.12% (ORAL KIT) 15 ML CUP MT SCH ×2 (09:16→20:10)
[2016-05-19] MEDS: SODIUM CHLORIDE 0.9% FLUSH 5 ML FLUSH IVF SCH ×2 (09:17→20:10)
[2016-05-19] MEDS: RIFAMPIN 150 MG CAP PO SCH ×2 (09:17→20:10)
[2016-05-19] MEDS: DOCUSATE SODIUM 50 MG/SENNA 8.6 MG TAB PO SCH ×2 (09:17→20:10)
[2016-05-19 10:02] LABS: FERRITIN 375 NG/ML (8-252); GENTAMICIN TROUGH 0.9 MCG/ML (0.0-2.0); TRANSFERRIN IRON PROFILE 117 MG/DL (200-360)
[2016-05-19] MEDS ORDERED: HYDROmorphone HCL PF 1 MG/ML VIAL IV SCH (12:00)
--- NOTE | 2016-05-19 12:34 | PD.CONS ---
HPI Service Cardiology Consult Requested By ICU Reason for Consult PETER Primary Care Physician Veronique Welsh MD History of Present Illness 45y/o F with pmhx significant for IVDA, C-spine fusion surgery in 2007 admitted 05/14/16,with 1 week of neck pain and associated paresthesias in the upper and lower extremities, back pain, fever and chills. MRI showed cervical abscess. She underwent emergent surgery for drainage. Blood cultures positive for MRSA bacteremia. Echo revealed preserved LV systolic function and a questionable mobile mass in the tricuspid valve. Cardiology has been consulted for PETER r/o Infectious endocarditis. Review of Systems ROS Limitations: Intubated Past Family Social History Allergies: Coded Allergies: Penicillin (Verified Allergy, Intermediate, Rash, 04/04/16) Has taken Keflex without any problem *MDRO Multi-Drug Resistant Organism (Verified Adverse Reaction, Unknown, ) MRSA (blood) - 05/14/16 Uncoded Allergies: chemical allergy (Allergy, Severe, anaphalactic, 09/27/12) Past Medical History Asthma Depression Hypertension Chronic neck and back pain Neuropathy IVDA Past Surgical History Cervical fusion surgery Reported Medications Reported Meds & Active Scripts Active Active Prescriptions or Reported Medications Unobtainable Active Ordered Medications Current Medications Medications (Trade) Dose Ordered Sig/Declan Route Start Time Stop Time Status Last Admin Magnesium Oxide 800 mg 800 mg UNSCH PRN PO 05/14/16 23:45 Magnesium Sulfate 4 gm/Sodium Chloride 100 ml @ 50 mls/hr UNSCH PRN IV 05/14/16 23:45 Magnesium Sulfate 2 gm/Sodium Chloride 100 ml @ 50 mls/hr UNSCH PRN IV 05/14/16 23:45 Potassium Chloride 100 ml @ 50 mls/hr Q2H PRN IV 05/14/16 23:45 Potassium Chloride 100 ml @ 50 mls/hr Q2H PRN IV 05/14/16 23:45 Potassium Chloride 100 ml @ 50 mls/hr Q2H PRN IV 05/14/16 23:45 (KCl 40 Meq Premix Inj) 100 ml @ 25 mls/hr UNSCH PRN IV 05/14/16 23:45 05/19/16 09:48 (KCl 40 Meq/30 ml Liq) 40 meq UNSCH PRN PO/TUBE 05/14/16 23:45 (KCl 40 Meq/30 ml Liq) 40 meq UNSCH PRN PO/TUBE 05/14/16 23:45 (K-Phos) 2,000 mg Q4H PRN PO 05/14/16 23:45 Potassium Phosphate 2000 mg 2,000 mg UNSCH PRN PO/TUBE 05/14/16 23:45 Potassium Phosphate 30 mmol/ Sodium Chloride 260 ml @ 42 mls/hr UNSCH PRN IV 05/14/16 23:45 (Sodium Phosphate Inj/NS 250 ml Inj) 250 ml @ 42 mls/hr UNSCH PRN IV 05/14/16 23:45 (D50w (Vial) Inj) 25 ml UNSCH PRN IV PUSH 05/14/16 23:45 Insulin Human Regular 1 1 Q6HR SQ 05/15/16 00:00 05/15/16 18:00 (NS 1000 ml Inj) 1,000 ml @ 84 mls/hr [id number] IV 05/14/16 23:38 05/19/16 11:04 (Tylenol) 650 mg Q6H PRN PO 05/14/16 23:45 05/19/16 09:40 (Zofran Inj) 4 mg Q6H PRN IV 05/14/16 23:45 (Gisell-Colace) 2 tab BID PO 05/15/16 09:00 05/19/16 09:17 Miscellaneous Information 1 Q361D XX 05/14/16 23:45 05/14/16 23:45 (Chlorhexidine 2% Cloth) 3 pack Taper DAILY@04 TOP 05/15/16 04:00 05/11/17 03:59 05/19/16 04:00 Chlorhexidine Gluconate 3 pack 3 pack UNSCH PRN TOP 05/14/16 23:45 (Vancomycin Consult Pharmacy) 0 ml @ 0 mls/hr UNSCH OTHER 05/15/16 05:15 (Dilaudid Pf Inj) 1 mg Q3H PRN IV 05/15/16 09:45 05/17/16 05:35 (NS Flush) 2 ml UNSCH PRN IVF 05/15/16 10:45 (NS Flush) 2 ml BID IVF 05/15/16 21:00 05/19/16 09:17 ([place] 5-325 Mg) 1 tab Q4H PRN PO 05/15/16 10:45 ([place] 10-325 Mg) 1 tab Q4H PRN PO 05/15/16 10:45 05/16/16 18:40 (Narcan Inj) 0.4 mg UNSCH PRN IV 05/15/16 10:45 Morphine Sulfate 30 mg 30 mg Q12HR PO 05/15/16 21:00 05/18/16 20:11 Aztreonam 2000 mg/ Sodium Chloride 100 ml @ 200 mls/hr Q8H IV 05/17/16 05:00 05/19/16 11:55 (fentaNYL DRIP) 250 ml @ 0 mls/hr TITRATE IV 05/17/16 08:15 05/19/16 01:39 (Beneprotein Powder) 1 pack TID G-TUBE 05/17/16 09:00 Chlorhexidine Gluconate 15 ml 15 ml BID@08,20 MT 05/17/16 20:00 05/19/16 09:16 Propofol 100 ml @ 0 mls/hr TITRATE IV 05/17/16 14:45 05/19/16 11:58 (Gentamicin Consult Pharmacy) 0 ml @ 0 mls/hr UNSCH IV 05/18/16 13:30 Rifampin 300 mg 300 mg Q12HR PO 05/18/16 21:00 05/19/16 09:17 Gentamicin Sulfate 60 mg/ Sodium Chloride 101.5 ml @ 200 mls/hr Q8H IV 05/18/16 16:00 05/19/16 09:15 (Vancomycin Inj/ NS 500 ml Inj) 515 ml @ 250 mls/hr Q12H IV 05/19/16 01:00 05/19/16 11:57 Miscellaneous Information SPECIFIC LAB TO BE DRAWN:VANCOM... ONCE ONCE XX 05/20/16 12:45 05/20/16 12:46 (NS 250 ml Inj) 250 ml @ 15 mls/hr ONCE ONCE IV 05/19/16 08:45 05/20/16 01:24 05/19/16 11:05 (Pepcid Liq) 20 mg HS NG 05/19/16 21:00 (Milk Of Magnesia Liq) 30 ml DAILY PRN PO 05/19/16 09:15 Family History Noncontributory Social History IVDA Physical Exam Vital Signs Vital Signs Date Time Temp Pulse Resp B/P Pulse Ox O2 Delivery O2 Flow Rate FiO2 05/19/16 10:06 100 40 05/19/16 10:00 103 05/19/16 08:01 100 40 05/19/16 08:00 97 05/19/16 08:00 40 05/19/16 08:00 101.7 97 24 123/51 100 05/19/16 07:00 100 Mechanical Ventilator 40 05/19/16 06:00 100 05/19/16 05:28 24 05/19/16 04:19 100 40 05/19/16 04:00 101.3 124 24 157/72 100 05/19/16 04:00 124 05/19/16 04:00 40 05/19/16 02:00 104 05/19/16 00:00 40 05/19/16 00:00 101.6 98 24 115/64 100 05/19/16 00:00 98 05/18/16 22:00 98 05/18/16 21:14 24 05/18/16 20:00 110 05/18/16 20:00 40 05/18/16 20:00 100 40 05/18/16 20:00 101.3 106 24 148/66 100 05/18/16 19:00 100 Mechanical Ventilator 40 05/18/16 18:00 111 05/18/16 17:21 100 40 05/18/16 16:00 107 05/18/16 16:00 98.1 106 24 141/82 100 05/18/16 16:00 40 05/18/16 14:00 104 Physical Exam GENERAL: Sedated, intubated SKIN: Warm and dry. HEAD: Normocephalic. EYES: No scleral icterus. No injection or drainage. NECK: Supple, trachea midline. No JVD or lymphadenopathy. CARDIOVASCULAR: Regular rate and rhythm without murmurs, gallops, or rubs. RESPIRATORY: Breath sounds equal bilaterally. No accessory muscle use. GASTROINTESTINAL: Abdomen soft, non-tender, nondistended. EXTREMITIES: No cyanosis, or edema. Laboratory Laboratory Tests Test 05/18/16 05/18/16 05/19/16 05/19/16 13:53 17:00 01:47 05:12 Sodium Level 143 142 Potassium Level 3.7 3.4 Chloride Level 104 104 Carbon Dioxide Level 33.6 33.4 Anion Gap 5 5 Blood Urea Nitrogen 23 21 Creatinine 0.45 0.49 Estimat Glomerular Filtration 151 137 Rate Random Glucose 108 113 Calcium Level 8.6 8.1 Total Bilirubin 0.4 Aspartate Amino Transf 27 (AST/SGOT) Alanine Aminotransferase 14 (ALT/SGPT) Alkaline Phosphatase 236 C-Reactive Protein 26.10 Total Protein 6.8 Albumin 1.1 Prothrombin Time 11.8 Prothromb Time International 1.1 Ratio Activated Partial 28.2 Thromboplast Time Hepatitis A IgM Antibody NEGATIVE Hepatitis B Surface Antigen NEGATIVE Hepatitis B Core IgM Antibody NEGATIVE Hepatitis C Antibody REACTIVE HIV (1&2) Antibody NEGATIVE Vancomycin Level Trough 8.5 White Blood Count 14.4 Red Blood Count 3.51 Hemoglobin 6.1 Hematocrit 18.9 Mean Corpuscular Volume 54.0 Mean Corpuscular Hemoglobin 17.5 Mean Corpuscular Hemoglobin 32.4 Concent Red Cell Distribution Width 19.8 Platelet Count 317 Mean Platelet Volume 8.4 Iron Level 18 Total Iron Binding Capacity 164 Percent Iron Saturation 11.0 Transferrin 117 Ferritin 375 Gentamicin Level Trough 0.9 Test 05/19/16 09:13 Blood Type A POSITIVE Antibody Screen NEGATIVE Crossmatch Leukocyte-Reduced Red Blood Cells Blood Bank Comment Date/Time Procedure Status Source Growth 05/18/16 19:27 Aerobic Blood Culture - Preliminary Resulted Blood Peripheral NO GROWTH IN 1 DAY 05/18/16 19:27 Anaerobic Blood Culture - Preliminary Resulted Blood Peripheral NO GROWTH IN 1 DAY 05/17/16 09:28 Gram Stain - Final Complete Sputum Endotracheal 05/17/16 09:28 Sputum Culture - Final Complete S. Aureus Mrsa 05/16/16 21:59 Aerobic Blood Culture - Final Resulted Blood Peripheral S. Aureus Mrsa 05/16/16 21:59 Anaerobic Blood Culture - Preliminary Resulted Blood Peripheral NO GROWTH IN 3 DAYS 05/16/16 18:52 Aerobic Blood Culture Received Blood Peripheral Pending 05/16/16 18:52 Anaerobic Blood Culture Received Blood Peripheral Pending 05/15/16 09:42 Fungal Smear - Final Resulted Abscess Other NO FUNGAL ELEMENTS SEEN. 05/15/16 09:42 Fungal Culture Resulted Abscess Other Pending 05/15/16 09:42 Acid Fast Stain - Final Resulted Abscess Other NO ACID FAST BACILLI SEEN 05/15/16 09:42 Mycobacterial Culture Resulted Abscess Other Pending Result Diagram: 05/19/16 0512 05/19/16 0512 Imaging Last Impressions Chest X-Ray 05/17/16 0000 Signed Impressions: Service Date/Time: Tuesday, May 17, 2016 08:42 - CONCLUSION: 1. Persistent diffuse bilateral airspace disease without significant change. 2. Endotracheal tube tip is close to the jason. Recommend pulling it back 1-2 cm. 3. Nasogastric tube tip is in the stomach. 4. Left subclavian central venous catheter tip is at the atriocaval junction. No pneumothorax. Saqib Herzog MD Lumbar Spine X-Ray 05/14/162111 Signed Impressions: Service Date/Time: Saturday, May 14, 2016 21:48 - CONCLUSION: Mild disc space narrowing at the L4-L5 level. Saqib Michele MD Cervical Spine MRI 05/14/162111 Signed Impressions: Service Date/Time: Saturday, May 14, 2016 22:07 - CONCLUSION: 1. Suspected complex fluid collection in the prevertebral soft tissues extending from C3 through T1. This could represent an evolving recent hemorrhage versus other causes for complex fluid collections including an abscess. 2. Susceptibility artifact presumably from hardware at the C4 through C6 levels. There is also some susceptibility artifact at the C7-T1 disc space. 3. Mild to moderate central disc protrusion at the C3-C4 level. 4. Mild disc bulge at the C6-C7 level. Saqib Michele MD Cervical Spine CT 05/14/16 0000 Signed Impressions: Service Date/Time: Saturday, May 14, 2016 23:21 - CONCLUSION: 1. Severe prevertebral soft tissue swelling as seen on the MRI examination which may reflect hemorrhage or abscess. No bony destruction is seen to suggest osteomyelitis. No epidural soft tissue mass is evident. Zack Dumont MD Assessment and Plan Problem List: (1) Infectious endocarditis Assessment and Plan: 45 y/o F with bacteremia, neck abscess s/p drainage and a questionable mobile mass in the right side of the Heart. Agree with PETER to r/o IE. Cont IV antx per ID and supportive management per ICU. Recommendations: 1. Keep NPO for PETER today Case discussed with Dr. Barth. Thank your for the opportunity to take part in the care of this patient. (2) Bacteremia (3) Neck abscess (4) IV drug abuse Assessment and Plan: (5) Fever Problem Qualifiers (1) Infectious endocarditis: Saad Jones MD May 19, 2016 12:34
[2016-05-19] MEDS ORDERED: MIDAZOLAM HCL 2 MG/2 ML VIAL IV ONE (12:45)
--- NOTE | 2016-05-19 14:30 | HHI.IDPN ---
Subjective Subjective Remarks IOver the we deteriorated clinically from resp standpoint Intubated sat on mech vent Large amount of secretions PETER with large tricuspid vig CT surg consult P + fever up to 101.7 Antibiotics Azactam IV Vanco IV gent rif Lines Left SCL line site with no e/o infection. Past Medical History reviewed Allergies: Coded Allergies: Penicillin (Verified Allergy, Intermediate, Rash, 04/04/16) Has taken Keflex without any problem *MDRO Multi-Drug Resistant Organism (Verified Adverse Reaction, Unknown, ) MRSA (blood) - 05/14/16 Uncoded Allergies: chemical allergy (Allergy, Severe, anaphalactic, 09/27/12) Objective . Vital Signs Date Time Temp Pulse Resp B/P Pulse Ox O2 Delivery O2 Flow Rate FiO2 05/19/16 12:35 99.8 93 24 136/57 100 05/19/16 12:20 100.1 103 24 129/55 100 05/19/16 12:00 100.1 103 24 150/64 100 05/19/16 12:00 40 05/19/16 12:00 103 05/19/16 10:06 100 40 05/19/16 10:00 103 05/19/16 08:01 100 40 05/19/16 08:00 97 05/19/16 08:00 40 05/19/16 08:00 101.7 97 24 123/51 100 05/19/16 07:00 100 Mechanical Ventilator 40 05/19/16 06:00 100 05/19/16 05:28 24 05/19/16 04:19 100 40 05/19/16 04:00 101.3 124 24 157/72 100 05/19/16 04:00 124 05/19/16 04:00 40 05/19/16 02:00 104 05/19/16 00:00 40 05/19/16 00:00 101.6 98 24 115/64 100 05/19/16 00:00 98 05/18/16 22:00 98 05/18/16 21:14 24 05/18/16 20:00 110 05/18/16 20:00 40 05/18/16 20:00 100 40 05/18/16 20:00 101.3 106 24 148/66 100 05/18/16 19:00 100 Mechanical Ventilator 40 05/18/16 18:00 111 2/19/17 17:21 100 40 05/18/16 16:00 107 05/18/16 16:00 98.1 106 24 141/82 100 05/18/16 16:00 40 05/18/16 05/18/16 05/19/16 15:00 23:00 07:00 Intake Total 1220 ml 1114 ml 1072 ml Output Total 500 ml 400 ml 320 ml Balance 720 ml 714 ml 752 ml IV Total 780 ml 877 ml 864 ml Tube Feeding 240 ml 237 ml 208 ml Tube Irrigant 200 ml Output Urine Total 500 ml 400 ml 320 ml Tube Feeding Residual Discard 0 ml 0 ml # Bowel Movements 0 0 . Laboratory Tests Test 05/18/16 05/19/16 04:15 05:12 White Blood Count 20.0 TH/MM3 14.4 TH/MM3 Red Blood Count 3.99 MIL/MM3 3.51 MIL/MM3 Hemoglobin 7.0 GM/DL 6.1 GM/DL Hematocrit 21.8 % 18.9 % Mean Corpuscular Volume 54.6 FL 54.0 FL Mean Corpuscular Hemoglobin 17.5 PG 17.5 PG Mean Corpuscular Hemoglobin 32.0 % 32.4 % Concent Red Cell Distribution Width 20.0 % 19.8 % Platelet Count 355 TH/MM3 317 TH/MM3 Mean Platelet Volume 8.3 FL 8.4 FL Laboratory Tests Test 05/18/16 05/18/16 05/19/16 04:15 13:53 05:12 Sodium Level 141 MEQ/L 143 MEQ/L 142 MEQ/L Potassium Level 3.7 MEQ/L 3.7 MEQ/L 3.4 MEQ/L Chloride Level 103 MEQ/L 104 MEQ/L 104 MEQ/L Carbon Dioxide Level 33.6 MEQ/L 33.6 MEQ/L 33.4 MEQ/L Anion Gap 4 MEQ/L 5 MEQ/L 5 MEQ/L Blood Urea Nitrogen 23 MG/DL 23 MG/DL 21 MG/DL Creatinine 0.47 MG/DL 0.45 MG/DL 0.49 MG/DL Estimat Glomerular Filtration 144 ML/MIN 151 ML/MIN 137 ML/MIN Rate Random Glucose 114 MG/DL 108 MG/DL 113 MG/DL Calcium Level 9.2 MG/DL 8.6 MG/DL 8.1 MG/DL Total Bilirubin 0.4 MG/DL Aspartate Amino Transf 27 U/L (AST/SGOT) Alanine Aminotransferase 14 U/L (ALT/SGPT) Alkaline Phosphatase 236 U/L C-Reactive Protein 26.10 MG/DL Total Protein 6.8 GM/DL Albumin 1.1 GM/DL Iron Level 18 MCG/DL Total Iron Binding Capacity 164 MCG/DL Percent Iron Saturation 11.0 % Transferrin 117 MG/DL Ferritin 375 NG/ML Microbiology Date/Time Procedure Status Source Growth 05/16/16 18:52 Aerobic Blood Culture Received Blood Peripheral Pending 05/16/16 18:52 Anaerobic Blood Culture Received Blood Peripheral Pending 05/16/16 21:53 Aerobic Blood Culture - Final Resulted Blood Peripheral S. Aureus Mrsa 05/16/16 21:53 Anaerobic Blood Culture - Preliminary Resulted Blood Peripheral NO GROWTH IN 3 DAYS 05/16/16 21:59 Aerobic Blood Culture - Final Resulted Blood Peripheral S. Aureus Mrsa 05/16/16 21:59 Anaerobic Blood Culture - Preliminary Resulted Blood Peripheral NO GROWTH IN 3 DAYS 05/17/16 09:28 Gram Stain - Final Complete Sputum Endotracheal 05/17/16 09:28 Sputum Culture - Final Complete S. Aureus Mrsa 05/18/16 19:20 Aerobic Blood Culture - Preliminary Resulted Blood Peripheral NO GROWTH IN 1 DAY 05/18/16 19:20 Anaerobic Blood Culture - Preliminary Resulted Blood Peripheral NO GROWTH IN 1 DAY 05/18/16 19:27 Aerobic Blood Culture - Preliminary Resulted Blood Peripheral NO GROWTH IN 1 DAY 05/18/16 19:27 Anaerobic Blood Culture - Preliminary Resulted Blood Peripheral NO GROWTH IN 1 DAY Imaging Last Impressions Chest X-Ray 05/17/16 0000 Signed Impressions: Service Date/Time: Tuesday, May 17, 2016 08:42 - CONCLUSION: 1. Persistent diffuse bilateral airspace disease without significant change. 2. Endotracheal tube tip is close to the jason. Recommend pulling it back 1-2 cm. 3. Nasogastric tube tip is in the stomach. 4. Left subclavian central venous catheter tip is at the atriocaval junction. No pneumothorax. Saqib Herzog MD Lumbar Spine X-Ray 05/14/162111 Signed Impressions: Service Date/Time: Saturday, May 14, 2016 21:48 - CONCLUSION: Mild disc space narrowing at the L4-L5 level. Saqib Michele MD Cervical Spine MRI 05/14/162111 Signed Impressions: Service Date/Time: Saturday, May 14, 2016 22:07 - CONCLUSION: 1. Suspected complex fluid collection in the prevertebral soft tissues extending from C3 through T1. This could represent an evolving recent hemorrhage versus other causes for complex fluid collections including an abscess. 2. Susceptibility artifact presumably from hardware at the C4 through C6 levels. There is also some susceptibility artifact at the C7-T1 disc space. 3. Mild to moderate central disc protrusion at the C3-C4 level. 4. Mild disc bulge at the C6-C7 level. Saqib Michele MD Cervical Spine CT 05/14/16 0000 Signed Impressions: Service Date/Time: Saturday, May 14, 2016 23:21 - CONCLUSION: 1. Severe prevertebral soft tissue swelling as seen on the MRI examination which may reflect hemorrhage or abscess. No bony destruction is seen to suggest osteomyelitis. No epidural soft tissue mass is evident. Zack Dumont MD Physical Exam CONSTITUTIONAL/GENERAL: Thin built CF. SKIN: No jaundice, rashes, or lesions. Ecchymoses and hyperpigmented lesions on lower extremities. Track mercado on bilateral UEs. HEAD: Atraumatic. Normocephalic. EYES: Pupils equal and round and reactive. Extraocular motions intact. No scleral icterus. No injection or drainage. Fundi not examined. ENT: orally intubated NECK: Trachea midline. Surgical dressing in place on anterior neck wo drainage CARDIOVASCULAR: Hs audible. No murmur appreciated. RESPIRATORY/CHEST: Symmetric, unlabored respirations. Clear to auscultation. Breath sounds equal bilaterally. No wheezes, rales, or rhonchi. GASTROINTESTINAL: Abdomen soft, diffuse RUQ tenderness. GENITOURINARY: Without palpable bladder distension. Enrique catheter in place with clear yellow urine MUSCULOSKELETAL: Extremities without clubbing, cyanosis, or edema. LYMPHATICS: No palpable cervical or supraclavicular adenopathy. NEUROLOGICAL: heavily sedated PSYCHIATRIC: could not be assessed. IV line sites with no e/o infection. Left SCL line site ok. 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 MRSA bacteremia (MRSA MARIA ESTHER in both abscess and blood is 1) Probable endocarditis (Tricuspid vs RV mobile vegetation) acute resp failure: likely sepsis related encephalopathy ? aspiration Aspiration Pneumonia in health care setting. 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 IVDU, active Recs Awaiting CT surg rec's dc Azactamc Check CMP Check PT/INR and PTT Check Hepatitis profile and HIV antibody screen when fesible (when the pt can consent) cont Genta IV (Vanco synergy) till adequate vanco levels achieved and endocarditis workup pending. cont Rifampin (hardware infection for synergy for prosthetic infection, LFTs permitting this should be part of final regimen) Follow urine output, creat while on genta IV. If bacteremia persists despite change in regimen consider changing central lines as it could be a continuing nidus of infection. Follow repaet cultures Follow clinically Dina Alejo Dr, RN, MD May 19, 2016 14:29
--- NOTE | 2016-05-19 14:57 | RADRPT ---
EXAM DATE/TIME: 05/19/2016 14:00 [facility] COMPARISON: CHEST SINGLE AP, May 17, 2016, 8:42. INDICATIONS: OG tube placement. MEDICAL HISTORY: Hypertension. SURGICAL HISTORY: None. ENCOUNTER: Subsequent ACUITY: 2 days PAIN SCORE: Non-responsive. LOCATION: Bilateral chest FINDINGS: ET tube, nasogastric tube, central venous catheter are all in good position. Patchy air space diseas e is present in the right upper lobe. Left lung is clear. Heart and pulmonary vascularity are keisha l. Portion of bony skeleton visualized unremarkable. CONCLUSION: 1. Interval improvement with less interstitial edema. 2. Patchy air space disease remains particularly in the right upper lobe and left base. Austin Dang MD FACR on May 19, 2016 at 14:49 Board Certified Radiologist. This report was verified electronically.
[2016-05-19] MEDS: HYDROmorphone HCL PF 1 MG/ML VIAL IV PRN ×2 (15:37→18:46)
--- NOTE | 2016-05-19 17:20 | ETE ---
Study Study Date:05/19/2016 STUDY CONCLUSIONS SUMMARY - Left ventricle: The cavity size was normal. Wall thickness was normal. Systolic function was normal. The estimated ejection fraction was in the range of 55% to 60%. Wall motion was normal; there were no regional wall motion abnormalities. - Aortic valve: No evidence of vegetation. - Mitral valve: No evidence of vegetation. No evidence of vegetation. - Left atrium: No evidence of thrombus in the atrial cavity or appendage. - Right atrium: No evidence of thrombus in the atrial cavity or appendage. - Tricuspid valve: There was a medium-sized, mobile vegetation. Mild regurgitation. ECHOGENIC MOBILE MASS ATTACHED TO THE VALVE CONSISTENT WITH A VEGETATION - Pulmonic valve: No evidence of vegetation. If LV function is below 40, please consider prescribing an ACEI or ARB or document rationale for non-use. PROCEDURE DATA Consent: The risks, benefits, and alternatives to the procedure were explained to the patient and informed consent was obtained. Procedure: Initial setup. The patient was brought to the laboratory in the fasting state. Intravenous access was obtained. Surface ECG leads and pulse oximetric signals were monitored. Sedation. Conscious sedation was administered by cardiology staff. Transesophageal echocardiography. Topical anesthesia was obtained using viscous lidocaine. A transesophageal probe was inserted by the attending asw/asuw tactical air controller. Image quality was good. Study completion: All IVs inserted during the procedure were removed. The patient tolerated the procedure well. There were no complications. Transesophageal echocardiography. 2D, complete spectral Doppler, and color Doppler. CARDIAC ANATOMY LEFT VENTRICLE: The cavity size was normal. Wall thickness was normal. Systolic function was normal. The estimated ejection fraction was in the range of 55% to 60%. Wall motion was normal; there were no regional wall motion abnormalities. AORTIC VALVE: Structurally normal valve. Trileaflet; normal thickness leaflets. Cusp separation was normal. No evidence of vegetation. Doppler: No significant regurgitation. Aorta: - There was no atheroma. There was no evidence for dissection. Aortic root: The aortic root was not dilated. Ascending aorta: The ascending aorta was normal in size. Aortic arch: The aortic arch was normal in size. Descending aorta: The descending aorta was normal in size. MITRAL VALVE: Structurally normal valve. Leaflet separation was normal. No evidence of vegetation. No evidence of vegetation. Doppler: No regurgitation. LEFT ATRIUM: The atrium was normal in size. No evidence of thrombus in the atrial cavity or appendage. The appendage was morphologically a left appendage, multilobulated, and of normal size. Emptying velocity was normal. RIGHT VENTRICLE: The cavity size was normal. Wall thickness was normal. Systolic function was normal. PULMONIC VALVE: Structurally normal valve. No evidence of vegetation. TRICUSPID VALVE: Structurally normal valve. Leaflet separation was normal. There was a medium-sized, mobile vegetation. Doppler: Mild regurgitation. PULMONARY ARTERY: The main pulmonary artery was normal-sized. RIGHT ATRIUM: The atrium was normal in size. No evidence of thrombus in the atrial cavity or appendage. The appendage was morphologically a right appendage. PERICARDIUM: There was no pericardial effusion. Prepared and signed by Saad Jones [id number]
[2016-05-19 17:21] LABS: HEMATOCRIT 21.7 % (35.0-46.0)
[2016-05-19] MEDS: IRON SUCROSE INJ 100 MG in SODIUM CHLORIDE 0.9% INJ 100 ML IV SCH (18:11)
[2016-05-19] MEDS: MULTIVITAMIN HEMATINIC THERAPEUTIC TAB OG SCH (20:10)
[2016-05-19] MEDS: FAMOTIDINE SUSP 40 MG/5 ML NG SCH (21:00)
[2016-05-20] VITALS (19 sets, daily range): BP systolic 122–143; BP diastolic 56–63; PULSE 93–114; RESP 24; TEMP 98.2–100.5; O2SAT 10–100
[2016-05-20] MEDS: GENTAMICIN INJ 60 MG in SODIUM CHLORIDE 0.9% INJ 100 ML IV SCH ×4 (00:08→23:39)
[2016-05-20] MEDS: VANCOMYCIN INJ 1,500 MG in SODIUM CHLORID 0.9% 500 ML INJ 500 ML IV SCH ×2 (00:27→13:01)
[2016-05-20] MEDS: HYDROmorphone HCL PF 1 MG/ML VIAL IV PRN ×5 (02:30→19:13)
[2016-05-20] MEDS: CHLORHEXIDINE GLUCONATE 2 % 1 PACK (2 CLOTHS) TOP SCH (03:16)
[2016-05-20] MEDS: PROPOFOL 1000 MG/100 ML INJ 100 ML IV SCH ×5 (03:36→18:56)
[2016-05-20 04:50] LABS: HEMATOCRIT 22.2 % (35.0-46.0); MEAN CELL VOLUME 57.7 FL (80.0-100.0); MEAN CORPUSCULAR HEMOGLOBIN 18.8 PG (27.0-34.0); MEAN CORPUSCULAR HGB CONC 32.6 % (32.0-36.0); PLATELET COUNT 295 TH/MM3 (150-450); RED BLOOD COUNT 3.84 MIL/MM3 (4.00-5.30); RED CELL DISTRIBUTION WIDTH 24.7 % (11.6-17.2); WHITE BLOOD COUNT 16.3 TH/MM3 (4.0-11.0)
[2016-05-20 04:51] LABS: REVIEW FLAG FINAL
[2016-05-20 05:14] LABS: ALT (GPT) 9 U/L (10-53); ANION GAP 4 MEQ/L (5-15); AST (GOT) 21 U/L (15-37); BICARBONATE 30.2 MEQ/L (21.0-32.0); BLOOD UREA NITROGEN 15 MG/DL (7-18); CHLORIDE 109 MEQ/L (98-107); GLOMERULAR FILTRATION RATE 179 ML/MIN (>89); SODIUM (NA) 143 MEQ/L (136-145)
[2016-05-20 05:17] LABS: ALKALINE PHOSPHATASE 175 U/L (45-117)
[2016-05-20] MEDS: INSULIN NovoLIN REGULAR SUPPLEMENTAL SCALE SQ SCH ×5 (05:41→23:54)
[2016-05-20] MEDS: fentaNYL DRIP 250 ML IV SCH ×2 (06:07→18:56)
--- NOTE | 2016-05-20 07:30 | HHI.CCPN ---
Subjective Remarks/Hospital Course This is a 45-year-old female with apparently a history of C-spine fusion several years ago who presented to the emergency department with complaints of neck and back pain, and numbness to her right arm. Patient states she fell approximately a week ago and her neck. She is in significant pain and distress and is moaning during my interview. Is very difficult to complete the interview due to her significant distress, and she refuses to provide much more information then this. In the emergency department she was noted to have a low- grade fever and elevated white blood cell count. Due to these, and MRI was ordered and demonstrates a large prevertebral cervical abscess. Dr. Oliver was called and is planning on surgically debriding this in the morning. Critical care medicine is consulted to evaluate and manage the patient's neurologic symptoms and cervical abscess. 05/15: Patient c/o severe neck and back pain. 05/16: Pain problems persist - exacerbated by her developed tolerance. MRSA in abscess. Narrow abx coverage to vanc, adjust per ID. 05/17: Deteriorating respiratory status. 05/18: Required intubation and mechanical ventilation for deteriorating respiratory function and hypoxemia associated with bilateral lung infiltrates, likely septic. 05/19: Remains sedated, orally intubated on mechanical ventilation. A 2-D echo done on 05/17 revealed mobile structure near right ventricular septal area versus tricuspid valve, PETER strongly recommended to evaluate for tricuspid valve vegetation. Patient is awaiting PETER today. Hemoglobin 6.1 down from 7. No melena or rectal bleeding per RN. No hypotension. 05/20: Sedated, arousable, orally intubated on mechanical ventilation. PETER done on 05/19 revealed large tricuspid valve vegetation for which CT surgery consult requested. Objective Vital Signs Date Time Temp Pulse Resp B/P Pulse Ox O2 Delivery O2 Flow Rate FiO2 05/20/16 06:36 24 05/20/16 06:00 105 05/20/16 04:22 100 40 05/20/16 04:00 99.8 143/63 05/19/16 19:00 Mechanical Ventilator 05/16/16 23:00 13.00 Intake and Output 05/19/16 05/19/16 05/20/16 08:00 16:00 00:00 Intake Total 1072 ml 941 ml 1090 ml Output Total 320 ml 650 ml 675 ml Balance 752 ml 291 ml 415 ml Result Diagram: 2/21/17 0433 05/20/16 0433 Other Results Microbiology Date/Time Procedure Status Source Growth 05/17/16 09:28 Gram Stain - Final Complete Sputum Endotracheal 05/17/16 09:28 Sputum Culture - Final Complete S. Aureus Mrsa Imaging Last 24 hours Impressions Cervical Spine MRI 05/14/162 Signed Impressions: Service Date/Time: Saturday, May 14, 2016 22:07 - CONCLUSION: 1. Suspected complex fluid collection in the prevertebral soft tissues extending from C3 through T1. This could represent an evolving recent hemorrhage versus other causes for complex fluid collections including an abscess. 2. Susceptibility artifact presumably from hardware at the C4 through C6 levels. There is also some susceptibility artifact at the C7-T1 disc space. 3. Mild to moderate central disc protrusion at the C3-C4 level. 4. Mild disc bulge at the C6-C7 level. Saqib Michele MD Objective Remarks GENERAL: Middle-aged female, lying in bed, sedated for vent synchrony. HEENT: Normocephalic. Atraumatic. NECK: Trachea is midline. Orally intubated. CHEST: On mechanical ventilation, Diffuse rhonchi. Good maria ines air entry. CARDIOVASCULAR: Tachycardia, regular rhythm. No appreciable murmurs. No JVD. ABDOMEN: Soft, nontender, nondistended. No guarding. BS active. MUSCULOSKELETAL: No peripheral edema. Tepid but well perfused. NEUROLOGICAL: WILIAM. Moves all 4 extremities on lightening sedation. Urinary Catheter: Yes Assessment to: Continue A/P Assessment and Plan Assessment: 45yF with history of prior IV drug abuse and now with cervical prevertebral abscess with possible neurologic sequelae. Plan: 1. Cervical Prevertebral Abscess --Dr. Oliver, neurosurgery following. --Vanc/Clinda/Rocephin iv for broad spectrum coverage of abscess -> narrowed to Vanc 05/16. Gentamycin/ Rifampin added per ID on 05/18. Aztreonam discontinued on 05/19 --blood cultures with MRSA --Continue neuro checks --Cervical abscess drained 05/15 2. Neck pain --dilaudid 0.5mg iv q4h prn. - Fentanyl gtt. - Add Methadone 20mg [id number] on 05/20 in v/o h/o opioid abuse/ dependence. 3. Hypoxemic Respiratory Failure -Intubated 05/17. PRVC vent mode --Diffuse infiltrates - septic emboli vs fluid overload --SCDs for DVT prophylaxis. heparin sq. --Protonix --Increase analgesia, patient has tolerance issues from long-term use. --Hydrate. --Advance tube feeds to goal as tolerated --PETER to look for vegetations 4. Anemia Plan is hypochromic normocytic anemia consistent with chronic iron deficiency. Iron studies 05/19 reviewed. One unit PRBCs transfused 05/19. IV iron sucrose 100mg IV daily x 10 days to replete marrow stores started 05/19. MVI with iron via OGT daily. 5. Sepsis MRSA bacteremia MRSA in sputum secondary to septic emboli. Tricuspid valve endocarditis 2-D echo with suspected mobile vegetation in RV septal area versus tricuspid valve, PETER with large tricuspid valve vegetation. Overall impression: Deteriorating respiratory function due to bilateral lung infiltrates, likely septic emboli from tricuspid valve endocarditis. She remains critically ill and has required intubation and mechanical ventilation. Behaving floridly septic. Critical Care 40 mins aside from procedures Raza Barth MD May 20, 2016 07:30
[2016-05-20] MEDS: MORPHINE SULFATE 30 MG CONTROLLED RELEASE TAB PO SCH ×2 (07:51→20:40)
[2016-05-20] MEDS: MULTIVITAMIN HEMATINIC THERAPEUTIC TAB OG SCH ×2 (07:51→20:02)
[2016-05-20] MEDS: DOCUSATE SODIUM 50 MG/SENNA 8.6 MG TAB PO SCH ×2 (07:52→20:02)
[2016-05-20] MEDS: RIFAMPIN 150 MG CAP PO SCH ×2 (07:52→20:02)
[2016-05-20] MEDS: CHLORHEXIDINE 0.12% (ORAL KIT) 15 ML CUP MT SCH ×2 (08:00→20:01)
[2016-05-20] MEDS: BENEPROTEIN POWDER 1 PACK G-TUBE SCH ×3 (09:00→18:00)
[2016-05-20] MEDS: METHADONE HCL 10 MG/10 ML ORAL SOLUTION PO SCH ×2 (09:00→20:01)
[2016-05-20] MEDS: SODIUM CHLORIDE 0.9% FLUSH 5 ML FLUSH IVF SCH ×2 (09:21→20:01)
[2016-05-20] MEDS: RESP: ALBUTEROL 2.5 MG/IPRATROPIUM 0.5 MG NEB (PRN) INH (10:10)
[2016-05-20] MEDS: SODIUM CHLOR 0.9% 1000 ML INJ 1,000 ML IV SCH ×2 (10:17→23:40)
[2016-05-20] MEDS ORDERED: PHARMACY ORDERED LAB XX ONE (12:45)
--- NOTE | 2016-05-20 13:10 | MB ---
cc: MIKKI BRADLEY MD DATE OF CONSULTATION: 05/20/2016 DATE OF : 1970 HISTORY OF PRESENT ILLNESS A 45-year-old female with history of C-spine fusion several years ago presented to the emergency room with complaint of neck and back pain, numbness to her right arm. She fell a week ago and hurt her neck with significant pain. She was found to have a large paravertebral cervical abscess. On her last admission in March she was admitted for right hand cellulitis with history of IV drug use to include methamphetamines and Dilaudid. During the course of this admission apparently her pain persisted. She had some deterioration of her respiratory status requiring intubation on the for deteriorating respiratory function, hypoxemia, bilateral infiltrates. She underwent PETER which showed a large tricuspid valve vegetation. We were consulted to evaluate for the results of the PETER. The patient remains intubated at this time. PAST MEDICAL HISTORY 1. IV drug use; recent admission in March for right hand sepsis. 2. Asthma. 3. Depression. 4. Hypertension. 5. Chronic neck and back pain. 6. Neuropathy. 7. C-spine fusion. ALLERGIES PENICILLIN. MEDICATIONS No home medications reported. REVIEW OF SYSTEMS Unobtainable. PHYSICAL EXAMINATION GENERAL: A somewhat ill-appearing female. VITAL SIGNS: Blood pressure 120/60, heart rate 105, T-max 99.9. She is on pressure control ventilation with FIO2 40%. GENERAL: She will open her eyes and nod her head yes and no. HEENT: Head is normocephalic. Pupils are approximately 2 mm, midline, reactive. Oral mucosa pink and moist. NECK: Supple. No JVD. HEART: Heart sounds S1, S2. No appreciable murmurs. No JVD. LUNGS: Coarse bilateral breath sounds. Trachea midline. ET tube in proper position. ABDOMEN: Soft, slightly distended. No guarding. Positive bowel sounds. EXTREMITIES: Generalized edema. She has some various abrasions and what appears like cigarette roberts on her right lower leg. She has some mottling over her knees. LABORATORY Hemoglobin 7.2, hematocrit 22. Her hemoglobin was 6.1 with a hematocrit of 18 yesterday. She did receive one unit of packed RBC. Sodium 143, potassium 4.0, BUN 15, creatinine 0.39, albumin 1.0. Hepatitis B negative, C reactive. Negative HIV. Microbiology shows staph MRSA retropharyngeal abscess, gram-positive cocci staph aureus MRSA in the blood. Current antibiotics include vancomycin, rifampin, gentamicin. She is sedated on fentanyl and some propofol. IMAGING Her last chest x-ray was interstitial edema, some patchy infiltrates right upper lobe and left base. IMPRESSION/PLAN This is a 45-year-old female admitted with sepsis, probable pneumonia, also bacteremia with staph MRSA, found to have large vegetation on the tricuspid valve; however, with her recent drug use is not a candidate for heart surgery at this time. No surgical intervention is deemed at this time. Dictated by: RODRIGO Valdivia Mikki SETHI /10:57 AM /1:08 PM
[2016-05-20] MEDS: ACETAMINOPHEN/HYDROcodone 325 MG/10 MG TAB PO PRN (17:08)
[2016-05-20] MEDS: IRON SUCROSE INJ 100 MG in SODIUM CHLORIDE 0.9% INJ 100 ML IV SCH (18:25)
[2016-05-20] MEDS: FAMOTIDINE SUSP 40 MG/5 ML NG SCH (20:00)
[2016-05-21] VITALS (22 sets, daily range): BP systolic 119–146; BP diastolic 55–68; PULSE 88–113; RESP 21–24; TEMP 97–101.4; O2SAT 99–100
[2016-05-21] MEDS ORDERED: PHARMACY ORDERED LAB XX ONE (00:45)
[2016-05-21] MEDS: VANCOMYCIN INJ 1,500 MG in SODIUM CHLORID 0.9% 500 ML INJ 500 ML IV SCH ×3 (00:50→20:28)
[2016-05-21] MEDS: ACETAMINOPHEN 325 MG TAB PO PRN ×3 (00:50→20:26)
[2016-05-21] MEDS: CHLORHEXIDINE GLUCONATE 2 % 1 PACK (2 CLOTHS) TOP SCH ×2 (04:00→19:55)
[2016-05-21] MEDS: INSULIN NovoLIN REGULAR SUPPLEMENTAL SCALE SQ SCH ×3 (05:15→18:00)
[2016-05-21] MEDS: HYDROmorphone HCL PF 1 MG/ML VIAL IV PRN ×3 (05:16→18:43)
[2016-05-21 05:25] LABS: MEAN CELL VOLUME 58.1 FL (80.0-100.0); MEAN CORPUSCULAR HEMOGLOBIN 18.7 PG (27.0-34.0); MEAN CORPUSCULAR HGB CONC 32.1 % (32.0-36.0); PLATELET COUNT 296 TH/MM3 (150-450); RED BLOOD COUNT 3.62 MIL/MM3 (4.00-5.30); RED CELL DISTRIBUTION WIDTH 24.9 % (11.6-17.2); WHITE BLOOD COUNT 16.9 TH/MM3 (4.0-11.0)
[2016-05-21 05:33] LABS: REVIEW FLAG FINAL
[2016-05-21] MEDS: fentaNYL DRIP 250 ML IV SCH ×2 (05:50→16:52)
[2016-05-21] MEDS: PROPOFOL 1000 MG/100 ML INJ 100 ML IV SCH ×3 (05:50→16:52)
[2016-05-21 05:57] LABS: ALKALINE PHOSPHATASE 168 U/L (45-117); ALT (GPT) 10 U/L (10-53); ANION GAP 6 MEQ/L (5-15); AST (GOT) 18 U/L (15-37); BICARBONATE 26.7 MEQ/L (21.0-32.0); BLOOD UREA NITROGEN 12 MG/DL (7-18); CHLORIDE 104 MEQ/L (98-107); GLOMERULAR FILTRATION RATE 155 ML/MIN (>89); POTASSIUM 3.8 MEQ/L (3.5-5.1); SODIUM (NA) 137 MEQ/L (136-145); TOTAL BILIRUBIN ADULT 0.8 MG/DL (0.2-1.0)
[2016-05-21] MEDS: GENTAMICIN INJ 60 MG in SODIUM CHLORIDE 0.9% INJ 100 ML IV SCH ×2 (08:44→16:35)
[2016-05-21] MEDS: CHLORHEXIDINE 0.12% (ORAL KIT) 15 ML CUP MT SCH ×2 (08:44→20:00)
[2016-05-21] MEDS: DOCUSATE SODIUM 50 MG/SENNA 8.6 MG TAB PO SCH ×2 (08:45→20:26)
[2016-05-21] MEDS: RIFAMPIN 150 MG CAP PO SCH ×2 (08:45→20:26)
[2016-05-21] MEDS: MULTIVITAMIN HEMATINIC THERAPEUTIC TAB OG SCH ×2 (08:45→20:26)
[2016-05-21] MEDS: MORPHINE SULFATE 30 MG CONTROLLED RELEASE TAB PO SCH ×2 (08:45→20:26)
[2016-05-21] MEDS: SODIUM CHLORIDE 0.9% FLUSH 5 ML FLUSH IVF SCH ×2 (08:45→20:28)
[2016-05-21] MEDS: METHADONE HCL 10 MG/10 ML ORAL SOLUTION PO SCH (08:45)
[2016-05-21] MEDS: BENEPROTEIN POWDER 1 PACK G-TUBE SCH ×3 (08:50→18:00)
[2016-05-21] MEDS: SODIUM CHLOR 0.9% 1000 ML INJ 1,000 ML IV SCH (10:33)
--- NOTE | 2016-05-21 10:37 | HHI.CCPN ---
Subjective Remarks/Hospital Course This is a 45-year-old female with apparently a history of C-spine fusion several years ago who presented to the emergency department with complaints of neck and back pain, and numbness to her right arm. Patient states she fell approximately a week ago and her neck. She is in significant pain and distress and is moaning during my interview. Is very difficult to complete the interview due to her significant distress, and she refuses to provide much more information then this. In the emergency department she was noted to have a low- grade fever and elevated white blood cell count. Due to these, and MRI was ordered and demonstrates a large prevertebral cervical abscess. Dr. Oliver was called and is planning on surgically debriding this in the morning. Critical care medicine is consulted to evaluate and manage the patient's neurologic symptoms and cervical abscess. 05/15: Patient c/o severe neck and back pain. 05/16: Pain problems persist - exacerbated by her developed tolerance. MRSA in abscess. Narrow abx coverage to vanc, adjust per ID. 05/17: Deteriorating respiratory status. 05/18: Required intubation and mechanical ventilation for deteriorating respiratory function and hypoxemia associated with bilateral lung infiltrates, likely septic. 05/19: Remains sedated, orally intubated on mechanical ventilation. A 2-D echo done on 05/17 revealed mobile structure near right ventricular septal area versus tricuspid valve, PETER strongly recommended to evaluate for tricuspid valve vegetation. Patient is awaiting PETER today. Hemoglobin 6.1 down from 7. No melena or rectal bleeding per RN. No hypotension. 05/20: Sedated, arousable, orally intubated on mechanical ventilation. PETER done on 05/19 revealed large tricuspid valve vegetation for which CT surgery consult requested. 05/21: Sedated, arousable, orally intubated on mechanical ventilation. Evaluated by CT surgery, not a surgical candidate due to IV drug use history per Dr. Lucrecia Banegas. Started on methadone on 05/20, increasing dose from 20 to 40 mg every 12 hourly today as still gets very agitated despite fentanyl drip. Objective Vital Signs Date Time Temp Pulse Resp B/P Pulse Ox O2 Delivery O2 Flow Rate FiO2 05/21/16 09:07 99 40 05/21/16 06:00 88 05/21/16 05:46 24 05/21/16 04:00 99.9 146/55 05/20/16 19:00 Mechanical Ventilator Intake and Output 05/20/16 05/20/16 05/21/16 08:00 16:00 00:00 Intake Total 1812 ml 1875 ml 1555 ml Output Total 900 ml 1200 ml 1000 ml Balance 912 ml 675 ml 555 ml Result Diagram: 05/21/16 0500 05/21/16 0500 Other Results Microbiology Date/Time Procedure Status Source Growth 05/18/16 19:20 Aerobic Blood Culture - Final Complete Blood Peripheral S. Aureus Mrsa 05/18/16 19:20 Anaerobic Blood Culture - Final Complete S. Aureus Mrsa Imaging Last 24 hours Impressions Cervical Spine MRI 05/14/162 Signed Impressions: Service Date/Time: Saturday, May 14, 2016 22:07 - CONCLUSION: 1. Suspected complex fluid collection in the prevertebral soft tissues extending from C3 through T1. This could represent an evolving recent hemorrhage versus other causes for complex fluid collections including an abscess. 2. Susceptibility artifact presumably from hardware at the C4 through C6 levels. There is also some susceptibility artifact at the C7-T1 disc space. 3. Mild to moderate central disc protrusion at the C3-C4 level. 4. Mild disc bulge at the C6-C7 level. Saqib Michele MD Objective Remarks GENERAL: Middle-aged female, lying in bed, sedated for vent synchrony. HEENT: Normocephalic. Atraumatic. NECK: Trachea is midline. Orally intubated. CHEST: On mechanical ventilation, Diffuse rhonchi. Good maria ines air entry. CARDIOVASCULAR: Tachycardia, regular rhythm. No appreciable murmurs. No JVD. ABDOMEN: Soft, nontender, nondistended. No guarding. BS active. MUSCULOSKELETAL: No peripheral edema. Tepid but well perfused. NEUROLOGICAL: Sedated, easily arousable, WILIAM. Moves all 4 extremities Urinary Catheter: Yes Assessment to: Continue Vascular Central Line Catheter: Yes Assessment to: Continue A/P Assessment and Plan Assessment: 45yF with history of prior IV drug abuse and now with cervical prevertebral abscess with possible neurologic sequelae. Plan: 1. Cervical Prevertebral Abscess --Dr. Oliver, neurosurgery following. --Vanc/Clinda/Rocephin iv for broad spectrum coverage of abscess -> narrowed to Vanc 05/16. Gentamycin/ Rifampin added per ID on 05/18. Aztreonam discontinued on 05/19 --blood cultures with MRSA. --Continue neuro checks --Cervical abscess drained 05/15 2. Neck pain --dilaudid 0.5mg iv q4h prn. - Fentanyl gtt. - Added Methadone 20mg [id number] on 05/20 in v/o h/o opioid abuse/ dependence. Increased methadone to 40 mg every 12 hourly on 05/20. 3. Hypoxemic Respiratory Failure -Intubated 05/17. PRVC vent mode --Diffuse infiltrates - septic emboli vs fluid overload --SCDs for DVT prophylaxis. heparin sq. --Protonix --Increase analgesia, patient has tolerance issues from long-term use. --Hydrate. --Advance tube feeds to goal as tolerated 4. Anemia Plan is hypochromic normocytic anemia consistent with chronic iron deficiency. Iron studies 05/19 reviewed. One unit PRBCs transfused 05/19. Second unit PRBCs ordered on 05/21. IV iron sucrose 100mg IV daily x 10 days to replete marrow stores started 05/19. MVI with iron via OGT daily. 5. Sepsis MRSA bacteremia MRSA in sputum secondary to septic emboli. Tricuspid valve endocarditis 2-D echo with suspected mobile vegetation in RV septal area versus tricuspid valve, PETER with large tricuspid valve vegetation. Overall impression: Deteriorating respiratory function due to bilateral lung infiltrates, likely septic emboli from tricuspid valve endocarditis. She remains critically ill and has required intubation and mechanical ventilation. Behaving floridly septic. Critical Care 40 mins aside from procedures Raza Barth MD May 21, 2016 10:37
[2016-05-21] MEDS: METHADONE HCL 10 MG/10 ML ORAL SOLUTION PO/TUBE SCH ×2 (11:19→20:27)
[2016-05-21 12:47] LABS: BACTERIA, URINE RARE /hpf; BLOOD, URINE SMALL (NEG); GLUCOSE,URINE NEG (NEG); KETONE, URINE NEG (NEG); MUCUS URINE MOD /lpf (OCC); NITRITE,URINE NEG (NEG); SQUAMOUS EPITHELIAL CELL URINE 3 /hpf (0-5); URINE COLOR DARK-YELLOW (YELLW/STRAW)
[2016-05-21 12:48] LABS: COMMENT (UR) CATH-CULTURE IND; CULTURE IF INDICATED CATH CULTURE IND
[2016-05-21] MEDS: IRON SUCROSE INJ 100 MG in SODIUM CHLORIDE 0.9% INJ 100 ML IV SCH (18:00)
[2016-05-21] MEDS: FAMOTIDINE SUSP 40 MG/5 ML NG SCH (20:27)
[2016-05-22] VITALS (16 sets, daily range): BP systolic 96–155; BP diastolic 52–84; PULSE 86–110; RESP 20–26; TEMP 98.3–99.2; O2SAT 93–100
[2016-05-22] MEDS: SODIUM CHLOR 0.9% 1000 ML INJ 1,000 ML IV SCH (02:13)
[2016-05-22] MEDS: GENTAMICIN INJ 60 MG in SODIUM CHLORIDE 0.9% INJ 100 ML IV SCH ×2 (02:14→08:17)
[2016-05-22] MEDS: VANCOMYCIN INJ 1,500 MG in SODIUM CHLORID 0.9% 500 ML INJ 500 ML IV SCH ×3 (05:03→20:03)
[2016-05-22 05:08] LABS: AUTOMATED NEUTROPHIL # 16.9 TH/MM3 (1.8-7.7); BASOPHIL % 0.1 % (0.0-2.0); EOSINOPHIL # 0.2 TH/MM3 (0-0.4); EOSINOPHIL % 0.9 % (0.0-4.0); HEMATOCRIT 24.8 % (35.0-46.0); LYMPH % 5.5 % (9.0-44.0); MEAN CELL VOLUME 63.2 FL (80.0-100.0); MEAN CORPUSCULAR HEMOGLOBIN 20.2 PG (27.0-34.0); MONO % 2.5 % (0.0-8.0); PLATELET COUNT 304 TH/MM3 (150-450); RED BLOOD COUNT 3.93 MIL/MM3 (4.00-5.30); RED CELL DISTRIBUTION WIDTH 28.2 % (11.6-17.2); WHITE BLOOD COUNT 18.5 TH/MM3 (4.0-11.0)
[2016-05-22 05:15] LABS: HEMO FLAGS AUTO DIFF
[2016-05-22 05:29] LABS: ALKALINE PHOSPHATASE 162 U/L (45-117); ALT (GPT) 11 U/L (10-53); ANION GAP 4 MEQ/L (5-15); AST (GOT) 20 U/L (15-37); BICARBONATE 29.9 MEQ/L (21.0-32.0); BLOOD UREA NITROGEN 10 MG/DL (7-18); CHLORIDE 103 MEQ/L (98-107); GLOMERULAR FILTRATION RATE 164 ML/MIN (>89); POTASSIUM 3.8 MEQ/L (3.5-5.1); SODIUM (NA) 137 MEQ/L (136-145); TOTAL BILIRUBIN ADULT 0.7 MG/DL (0.2-1.0)
[2016-05-22] MEDS: INSULIN NovoLIN REGULAR SUPPLEMENTAL SCALE SQ SCH ×5 (06:00→23:41)
[2016-05-22 06:57] LABS: BANDS 3 % (0-6); NEUTROPHIL # MANUAL DIFF 17.8 TH/MM3 (1.8-7.7); POLYS (SEG NEUTROPHILS) 93 % (16-70); TARGET CELLS 1+ (NORMAL); WBC DIFF SAMPLE 100
[2016-05-22 06:58] LABS: KERATOCYTES OCC (NORMAL); PLATELET ESTIMATE SMEAR NORMAL (NORMAL); PLATELET MORPHOLOGY NORMAL (NORMAL); SCAN/DIFF FINAL DIFF MANUAL
--- NOTE | 2016-05-22 07:34 | HHI.CCPN ---
Subjective Remarks/Hospital Course This is a 45-year-old female with apparently a history of C-spine fusion several years ago who presented to the emergency department with complaints of neck and back pain, and numbness to her right arm. Patient states she fell approximately a week ago and her neck. She is in significant pain and distress and is moaning during my interview. Is very difficult to complete the interview due to her significant distress, and she refuses to provide much more information then this. In the emergency department she was noted to have a low- grade fever and elevated white blood cell count. Due to these, and MRI was ordered and demonstrates a large prevertebral cervical abscess. Dr. Oliver was called and is planning on surgically debriding this in the morning. Critical care medicine is consulted to evaluate and manage the patient's neurologic symptoms and cervical abscess. 05/15: Patient c/o severe neck and back pain. 05/16: Pain problems persist - exacerbated by her developed tolerance. MRSA in abscess. Narrow abx coverage to vanc, adjust per ID. 05/17: Deteriorating respiratory status. 05/18: Required intubation and mechanical ventilation for deteriorating respiratory function and hypoxemia associated with bilateral lung infiltrates, likely septic. 05/19: Remains sedated, orally intubated on mechanical ventilation. A 2-D echo done on 05/17 revealed mobile structure near right ventricular septal area versus tricuspid valve, PETER strongly recommended to evaluate for tricuspid valve vegetation. Patient is awaiting PETER today. Hemoglobin 6.1 down from 7. No melena or rectal bleeding per RN. No hypotension. 05/20: Sedated, arousable, orally intubated on mechanical ventilation. PETER done on 05/19 revealed large tricuspid valve vegetation for which CT surgery consult requested. 05/21: Sedated, arousable, orally intubated on mechanical ventilation. Evaluated by CT surgery, not a surgical candidate due to IV drug use history per Dr. Lucrecia Banegas. Started on methadone on 05/20, increasing dose from 20 to 40 mg every 12 hourly today as still gets very agitated despite fentanyl drip. 05/22: very awake this morning. states she is in pain. asked to sit up in bed. Objective Vital Signs Date Time Temp Pulse Resp B/P Pulse Ox O2 Delivery O2 Flow Rate FiO2 05/22/16 06:00 96 05/22/16 05:05 99 40 05/22/16 04:00 99.2 24 118/56 05/20/16 19:00 Mechanical Ventilator Intake and Output 05/21/16 05/21/16 05/22/16 08:00 16:00 00:00 Intake Total 1946 ml 3052 ml 1850 ml Output Total 900 ml 1100 ml 1800 ml Balance 1046 ml 1952 ml 50 ml Result Diagram: 05/22/16 0450 05/22/16 0450 Imaging Last 24 hours Impressions Cervical Spine MRI 05/14/162111 Signed Impressions: Service Date/Time: Saturday, May 14, 2016 22:07 - CONCLUSION: 1. Suspected complex fluid collection in the prevertebral soft tissues extending from C3 through T1. This could represent an evolving recent hemorrhage versus other causes for complex fluid collections including an abscess. 2. Susceptibility artifact presumably from hardware at the C4 through C6 levels. There is also some susceptibility artifact at the C7-T1 disc space. 3. Mild to moderate central disc protrusion at the C3-C4 level. 4. Mild disc bulge at the C6-C7 level. Saqib Michele MD Objective Remarks GENERAL: Middle-aged female, lying in bed, on sedation but very awake this morning. HEENT: Normocephalic. Atraumatic. NECK: Trachea is midline. Orally intubated. CHEST: On mechanical ventilation, Diffuse rhonchi. Good maria ines air entry. CARDIOVASCULAR: Tachycardia, regular rhythm. No appreciable murmurs. No JVD. ABDOMEN: Soft, nontender, nondistended. No guarding. BS active. MUSCULOSKELETAL: 1+ peripheral edema. Tepid but well perfused. NEUROLOGICAL: awake, alert, RASS+1, WILIAM. Moves all 4 extremities, follows commands. A/P Assessment and Plan Assessment: 45yF with history of prior IV drug abuse, cerebral prevertebral abscess, tricuspid endocarditis, hypoxic and hypercarbic respiratory failure. Clinically, she is starting to slowly improve, although her endocarditis and axial infection make her long-term prognosis very poor. Her history of opiate abuse will make her chronic pain a big problem, and we will likely never be able to appropriately control her pain due to her past abuse. we will try a multimodal approach to pain control. we will work towards extubation today if we can get her pain under control. Plan: 1. Cervical Prevertebral Abscess --Dr. Oliver, neurosurgery following. --Vanc/Clinda/Rocephin iv for broad spectrum coverage of abscess -> narrowed to Vanc 05/16. Gentamycin/ Rifampin added per ID on 05/18. Aztreonam discontinued on 05/19 --blood cultures with MRSA. --Continue neuro checks --Cervical abscess drained 05/15 2. Neck pain --add gabapentin 300mg po q8h kary --schedule tylenol 650 q6h --toradol 15mg iv q6hr kary x 3 days (05/22-05/25) --oxycodone 20mg po q4h kary --continue methadone 40mg po q12h. --tizanidine 4mg po q12h kary --dilaudid 1mg iv q3h prn for breakthrough pain. - wean fentanyl and propofol as tolerated for RASS goal 0. 3. Hypoxemic Respiratory Failure -Intubated 05/17. PRVC vent mode --Diffuse infiltrates - septic emboli vs fluid overload --Lasix 20mg iv x 1 today. --SBT today. if she passes will pursue extubation if her pain is adequately controlled. --SCDs for DVT prophylaxis. heparin sq. --Protonix --Advance tube feeds to goal as tolerated 4. Anemia Plan is hypochromic normocytic anemia consistent with chronic iron deficiency. Iron studies 05/19 reviewed. One unit PRBCs transfused 05/19. Second unit PRBCs ordered on 05/21. IV iron sucrose 100mg IV daily x 10 days to replete marrow stores started 05/19. MVI with iron via OGT daily. 5. Sepsis MRSA bacteremia MRSA in sputum secondary to septic emboli. Tricuspid valve endocarditis --2-D echo with suspected mobile vegetation in RV septal area versus tricuspid valve, PETER with large tricuspid valve vegetation. 6. Intravascular Hypervolemia --lasix 20mg iv x 1. 7. Acute Protein Calorie Malnutrition- moderate -- TF at goal. --daily BMP Irvin Ha MD May 22, 2016 07:34
[2016-05-22] MEDS ORDERED: FUROSEMIDE 20 MG/2 ML VIAL IV PUSH ONE (07:45)
[2016-05-22] MEDS: DOCUSATE SODIUM 50 MG/SENNA 8.6 MG TAB PO SCH ×2 (08:14→20:05)
[2016-05-22] MEDS: ACETAMINOPHEN 650 MG/20.3 ML UDC PO SCH ×3 (08:14→20:05)
[2016-05-22] MEDS: oxyCODONE HCL ORAL CONC 20 MG/ML SYRINGE PO SCH ×5 (08:15→23:21)
[2016-05-22] MEDS: RIFAMPIN 150 MG CAP PO SCH ×2 (08:15→20:04)
[2016-05-22] MEDS: GABAPENTIN 300 MG CAP PO SCH ×3 (08:15→18:38)
[2016-05-22] MEDS: METHADONE HCL 10 MG/10 ML ORAL SOLUTION PO/TUBE SCH ×2 (08:16→20:04)
[2016-05-22] MEDS: KETOROLAC TROMETHAMINE 30 MG/ML (IVP) VIAL IV PUSH SCH ×3 (08:17→20:03)
[2016-05-22] MEDS: CHLORHEXIDINE 0.12% (ORAL KIT) 15 ML CUP MT SCH ×2 (08:18→20:00)
[2016-05-22] MEDS: SODIUM CHLORIDE 0.9% FLUSH 5 ML FLUSH IVF SCH ×2 (08:18→21:06)
[2016-05-22] MEDS: HYDROmorphone HCL PF 1 MG/ML VIAL IV PRN ×2 (08:45→14:56)
[2016-05-22] MEDS ORDERED: PHARMACY ORDERED LAB XX ONE (11:45)
[2016-05-22] MEDS: BENEPROTEIN POWDER 1 PACK G-TUBE SCH ×3 (12:50→18:00)
[2016-05-22] MEDS: MULTIVITAMIN HEMATINIC THERAPEUTIC TAB OG SCH ×2 (12:50→20:04)
--- NOTE | 2016-05-22 12:53 | HHI.NSPN ---
History Chief Complaint: s/p evacuation of cervical retropharyngeal abscess Interval History 45-year-old female admitted through the emergency room on the evening of 05/14/16 , who complains of approximately 1 week of neck pain since she fell a week ago. She states for the past 3 or 4 days she has noted severe increase in the neck pain as well as some paresthesias in the upper and lower extremities and aggressive somewhat diffuse spinal region pain as well as extremity pain and muscular discomfort. She complains of positive fever and chills in the past couple days. She states she has had some trouble walking in the past couple days due to the diffuse pain. No loss of bowel or bladder function. The patient was recently admitted to the hospital on 04/01/16 with a hand abscess secondary to IV drug use, with sepsis. Cultures grew group A beta strep. She was discharged after approximately a week of antibiotics. The patient does have a history of previous neck surgery in 2007 following an injury where she fell onto the floor. She has had some chronic neck pain and extremity paresthesias since that time. She has had numerous admissions in the past few years for skin infections, likely related to IV drug abuse. 05/16/16: Pt awake and alert. Complains of pain all over but will fall asleep. Follows commands well. Agitated at times. 05/17/16: Pt on bipap last night. She opens eyes and complains of pain all over. Follows commands well. 05/18/16: Pt intubated. opens eyes to voice. Not following commands. Pupils equal. 05/22/16: Pt intubated. Pt opens eyes to voice. Pupils equal. Nods head to some questions. Follows commands. System Review Comments Not able to obtain given clinical condition. Exam Results Vital Signs Date Time Temp Pulse Resp B/P Pulse Ox O2 Delivery O2 Flow Rate FiO2 05/22/16 08:41 100 40 05/22/16 06:00 96 05/22/16 04:00 99.2 24 118/56 05/20/16 19:00 Mechanical Ventilator Intake and Output 05/21/16 05/21/16 05/22/16 08:00 16:00 00:00 Intake Total 1946 ml 3052 ml 1850 ml Output Total 900 ml 1100 ml 1800 ml Balance 1046 ml 1952 ml 50 ml Physical Examination Resp: CTA bilaterally. Intubated. Heart: NSR no murmurs Abd: mild distention. positive bs Skin: Anterior cervical incision clean and dry. Muscle: Moves all 4 extremities to command. Neuro: Pt intubated. She gets restless when woken up. Following simple commands. Pupils equal. Lab, Micro, Other Results Laboratory Tests Test 05/22/16 04:50 White Blood Count 18.5 TH/MM3 Red Blood Count 3.93 MIL/MM3 Hemoglobin 7.9 GM/DL Hematocrit 24.8 % Mean Corpuscular Volume 63.2 FL Mean Corpuscular Hemoglobin 20.2 PG Mean Corpuscular Hemoglobin 32.0 % Concent Red Cell Distribution Width 28.2 % Platelet Count 304 TH/MM3 Mean Platelet Volume 8.3 FL Neutrophils (%) (Auto) 91.0 % Lymphocytes (%) (Auto) 5.5 % Monocytes (%) (Auto) 2.5 % Eosinophils (%) (Auto) 0.9 % Basophils (%) (Auto) 0.1 % Neutrophils # (Auto) 16.9 TH/MM3 Lymphocytes # (Auto) 1.0 TH/MM3 Monocytes # (Auto) 0.5 TH/MM3 Eosinophils # (Auto) 0.2 TH/MM3 Basophils # (Auto) 0.0 TH/MM3 CBC Comment AUTO DIFF Differential Total Cells 100 Counted Neutrophils % (Manual) 93 % Band Neutrophils % 3 % Lymphocytes % 3 % Monocytes % 1 % Neutrophils # (Manual) 17.8 TH/MM3 Differential Comment FINAL DIFF MANUAL Platelet Estimate NORMAL Platelet Morphology Comment NORMAL Target Cells 1+ Keratocytes OCC Sodium Level 137 MEQ/L Potassium Level 3.8 MEQ/L Chloride Level 103 MEQ/L Carbon Dioxide Level 29.9 MEQ/L Anion Gap 4 MEQ/L Blood Urea Nitrogen 10 MG/DL Creatinine 0.42 MG/DL Estimat Glomerular Filtration 164 ML/MIN Rate Random Glucose 98 MG/DL Calcium Level 8.1 MG/DL Total Bilirubin 0.7 MG/DL Aspartate Amino Transf 20 U/L (AST/SGOT) Alanine Aminotransferase 11 U/L (ALT/SGPT) Alkaline Phosphatase 162 U/L Total Protein 7.1 GM/DL Albumin 1.0 GM/DL 2/22/17 2/22/17 2/23/17 15:00 23:00 07:00 Intake Total 3052 ml 1850 ml 1275 ml Output Total 1100 ml 1800 ml 850 ml Balance 1952 ml 50 ml 425 ml Intake Oral 0 ml 0 ml IV Total 2129 ml 1400 ml 900 ml Tube Feeding 223 ml 250 ml 175 ml Packed Cells 500 ml Other 200 ml 200 ml 200 ml Output Urine Total 1100 ml 1800 ml 850 ml Stool Total 0 ml 0 ml # Bowel Movements 0 Medical Decision Making Impression and Plan A: 45 y/o FM with 1. Neck abscess in patient with history of IV drug abuse, recent admission for hand infection with sepsis. s/p retropharyngeal abscess drainage by Dr. Oliver 2. History thalassemia Plan: Continue with current care Continue with rehab efforts. Continue with critical care. Yvan Quesada May 22, 2016 12:53
[2016-05-22] MEDS ORDERED: GENTAMICIN INJ 80 MG in SODIUM CHLORIDE 0.9% INJ 100 ML IV SCH (16:00)
[2016-05-22] MEDS: LIDOCAINE HCL 5% PATCH TD SCH (18:37)
[2016-05-22] MEDS: IRON SUCROSE INJ 100 MG in SODIUM CHLORIDE 0.9% INJ 100 ML IV SCH (18:38)
[2016-05-22] MEDS ORDERED: LIDOCAINE HCL 5% PATCH TD SCH (20:15)
[2016-05-22] MEDS ORDERED: REMOVE OLD PATCH T-DERMAL SCH (21:00)
[2016-05-22] MEDS: FAMOTIDINE SUSP 40 MG/5 ML NG SCH (21:00)
[2016-05-22] MEDS: GENTAMICIN/SOD CHL 80 MG/100 ML IV SCH (23:40)
[2016-05-23] VITALS (11 sets, daily range): BP systolic 107–160; BP diastolic 63–92; PULSE 90–116; RESP 17–22; TEMP 97.6–99.5; O2SAT 92–98
[2016-05-23] MEDS: KETOROLAC TROMETHAMINE 30 MG/ML (IVP) VIAL IV PUSH SCH ×4 (01:00→22:22)
[2016-05-23] MEDS: HYDROmorphone HCL PF 1 MG/ML VIAL IV PRN ×5 (01:00→22:24)
[2016-05-23] MEDS: ACETAMINOPHEN 650 MG/20.3 ML UDC PO SCH ×4 (01:00→22:22)
[2016-05-23] MEDS: oxyCODONE HCL ORAL CONC 20 MG/ML SYRINGE PO SCH ×3 (03:57→13:23)
[2016-05-23] MEDS: VANCOMYCIN INJ 1,500 MG in SODIUM CHLORID 0.9% 500 ML INJ 500 ML IV SCH ×3 (03:57→23:55)
[2016-05-23] MEDS: CHLORHEXIDINE GLUCONATE 2 % 1 PACK (2 CLOTHS) TOP SCH (04:00)
[2016-05-23 04:35] LABS: MEAN CELL VOLUME 63.1 FL (80.0-100.0); MEAN CORPUSCULAR HEMOGLOBIN 20.1 PG (27.0-34.0); MEAN CORPUSCULAR HGB CONC 31.9 % (32.0-36.0); PLATELET COUNT 377 TH/MM3 (150-450); RED CELL DISTRIBUTION WIDTH 28.7 % (11.6-17.2); WHITE BLOOD COUNT 17.9 TH/MM3 (4.0-11.0)
[2016-05-23 04:41] LABS: REVIEW FLAG AUTO DIFF
[2016-05-23 04:58] LABS: BICARBONATE 30.3 MEQ/L (21.0-32.0); POTASSIUM 3.5 MEQ/L (3.5-5.1)
[2016-05-23] MEDS: INSULIN NovoLIN REGULAR SUPPLEMENTAL SCALE SQ SCH ×2 (06:00→11:53)
[2016-05-23] MEDS: REMOVE OLD PATCH TD SCH (06:00)
[2016-05-23] MEDS: CHLORHEXIDINE 0.12% (ORAL KIT) 15 ML CUP MT SCH ×2 (08:00→20:00)
[2016-05-23] MEDS: GABAPENTIN 300 MG CAP PO SCH ×3 (08:36→18:38)
[2016-05-23] MEDS: METHADONE HCL 10 MG/10 ML ORAL SOLUTION PO/TUBE SCH ×3 (08:36→23:55)
[2016-05-23] MEDS: RIFAMPIN 150 MG CAP PO SCH ×2 (08:37→23:56)
[2016-05-23] MEDS: MULTIVITAMIN HEMATINIC THERAPEUTIC TAB OG SCH ×2 (08:37→23:56)
[2016-05-23] MEDS: DOCUSATE SODIUM 50 MG/SENNA 8.6 MG TAB PO SCH ×2 (08:37→21:00)
[2016-05-23] MEDS: BENEPROTEIN POWDER 1 PACK G-TUBE SCH ×3 (08:38→16:55)
[2016-05-23] MEDS: GENTAMICIN/SOD CHL 80 MG/100 ML IV SCH (08:38)
[2016-05-23] MEDS: SODIUM CHLORIDE 0.9% FLUSH 5 ML FLUSH IVF SCH ×2 (08:38→22:22)
--- NOTE | 2016-05-23 14:00 | HHI.PR ---
Subjective Remarks Follow up for prevertebral ascess, IVDU. Ms. Rock is doing well. She complains of suboptimal control of her pain. No fever, chills. She has not been able to sleep much. Objective Vitals Vital Signs Date Time Temp Pulse Resp B/P Pulse Ox O2 Delivery O2 Flow Rate FiO2 05/23/16 12:00 91 05/23/16 10:00 90 05/23/16 09:05 97 Nasal Cannula 2.00 05/23/16 08:00 116 05/23/16 08:00 99.5 116 20 160/92 92 Arterial Line 05/23/16 06:00 96 05/23/16 04:00 98.5 105 17 158/83 96 05/23/16 04:00 105 05/23/16 02:00 103 05/23/16 00:00 98.7 99 21 123/63 97 05/23/16 00:00 99 05/22/16 22:00 100 05/22/16 20:15 97 Nasal Cannula 2.00 05/22/16 20:00 98.3 110 22 155/70 94 05/22/16 20:00 110 05/22/16 18:00 110 05/22/16 16:00 109 05/22/16 16:00 98.9 109 20 133/62 93 147/67 05/22/16 14:00 98 I/O 05/22/16 05/22/16 05/22/16 05/23/16 05/23/16 05/23/16 07:00 15:00 23:00 07:00 15:00 23:00 Intake Total 1275 ml 1509 ml 857 ml 715 ml Output Total 850 ml 1450 ml 1350 ml 550 ml Balance 425 ml 59 ml -493 ml 165 ml Intake Oral 0 ml 0 ml 240 ml 240 ml IV Total 900 ml 1226 ml 617 ml 475 ml Tube Feeding 175 ml 223 ml Other 200 ml 60 ml Output Urine Total 850 ml 1450 ml 550 ml 450 ml Stool Total 0 ml 0 ml 800 ml 100 ml Tube Feeding Residual Discard 0 ml # Bowel Movements 5 Result Diagram: 05/23/16 0409 05/23/16 0409 Imaging Last Impressions Chest X-Ray 05/19/16 0000 Signed Impressions: Service Date/Time: Thursday, May 19, 2016 14:00 - CONCLUSION: 1. Interval improvement with less interstitial edema. 2. Patchy air space disease remains particularly in the right upper lobe and left base. Austin Dang MD FACR Lumbar Spine X-Ray 05/14/162111 Signed Impressions: Service Date/Time: Saturday, May 14, 2016 21:48 - CONCLUSION: Mild disc space narrowing at the L4-L5 level. Saqib Michele MD Cervical Spine MRI 05/14/162111 Signed Impressions: Service Date/Time: Saturday, May 14, 2016 22:07 - CONCLUSION: 1. Suspected complex fluid collection in the prevertebral soft tissues extending from C3 through T1. This could represent an evolving recent hemorrhage versus other causes for complex fluid collections including an abscess. 2. Susceptibility artifact presumably from hardware at the C4 through C6 levels. There is also some susceptibility artifact at the C7-T1 disc space. 3. Mild to moderate central disc protrusion at the C3-C4 level. 4. Mild disc bulge at the C6-C7 level. Saqib Michele MD Cervical Spine CT 05/14/16 0000 Signed Impressions: Service Date/Time: Saturday, May 14, 2016 23:21 - CONCLUSION: 1. Severe prevertebral soft tissue swelling as seen on the MRI examination which may reflect hemorrhage or abscess. No bony destruction is seen to suggest osteomyelitis. No epidural soft tissue mass is evident. Zack Dumont MD Objective Remarks GENERAL: Alert, NAD. SKIN: Warm and dry. HEAD: Normocephalic. EYES: No scleral icterus. No injection or drainage. NECK: Supple, trachea midline. No JVD or lymphadenopathy. CARDIOVASCULAR: Regular rate and rhythm without murmurs, gallops, or rubs. RESPIRATORY: Breath sounds equal bilaterally. No accessory muscle use. GASTROINTESTINAL: Abdomen somewhat firm, non-tender, nondistended. MUSCULOSKELETAL: No cyanosis, or edema. BACK: Nontender without obvious deformity. No CVA tenderness. Procedures Transthoracic Echo 05/17/2016 - Left ventricle: The cavity size was normal. Wall thickness was normal. Systolic function was normal. The estimated ejection fraction was in the range of 55% to 60%. Wall motion was normal; there were no regional wall motion abnormalities. Doppler parameters are consistent with abnormal left ventricular relaxation (grade 1 diastolic dysfunction). - Right ventricle: Systolic pressure was increased. - Tricuspid valve: Mild regurgitation. Impressions: Mobile structure at the level of right ventricular septal area VS tricuspid valve. Possible vegetation. PETER strongly recommended Recommendations: Transesophageal echocardiography should be performed in order to exclude ticuspid valve vegetation Transesophageal echocardiogram - Left ventricle: The cavity size was normal. Wall thickness was normal. Systolic function was normal. The estimated ejection fraction was in the range of 55% to 60%. Wall motion was normal; there were no regional wall motion abnormalities. - Aortic valve: No evidence of vegetation. - Mitral valve: No evidence of vegetation. No evidence of vegetation. - Left atrium: No evidence of thrombus in the atrial cavity or appendage. - Right atrium: No evidence of thrombus in the atrial cavity or appendage. - Tricuspid valve: There was a medium-sized, mobile vegetation. Mild regurgitation. ECHOGENIC MOBILE MASS ATTACHED TO THE VALVE CONSISTENT WITH A VEGETATION - Pulmonic valve: No evidence of vegetation. A/P Problem List: (1) Neck abscess ICD Code: L02.11 Status: Acute (2) Infectious endocarditis ICD Code: I33.0 Status: Acute (3) Bacteremia ICD Code: R78.81 Status: Acute (4) IV drug abuse ICD Code: F19.10 Status: Acute Assessment and Plan Ms. Rock is a 45-year-old female with apparently a history of C-spine fusion several years ago who presented to the emergency department with complaints of neck and back pain, and numbness to her right arm on 05/14/2016. MRI imaging indicated a large prevertebral abscess. Neurosurgery performed I&D on 2016. TTE indicated possible endocarditis which was later confirmed with PETER. Patient is currently on Vancomycin, Gentamicin and Rifampin per ID recommendations. Due to worsening respiratory status, patient was intubated on and extubated on 05/22/2016. - Cervical prevertebral abscess - MRSA bacteremia - Tricuspid endocarditis confirmed with PETER. - Continue Vancomycin, Rifampin, Gentamicin per ID recommendations. - Blood culture growing MRSA - Neurosurgery, ID following. - Pain medications (updated 05/23/2016). Acetaminophen 650mg Q6hrs Gabapentin 300mg TID Toradol 15mg IV Q6hrs (3 days) Lidocaine patch 5% Daily. Methadone 40mg BID -- changed to 20mg TID Oxycodone 20mg Q4hrs -- Changed to 10mg Q4hrs PRN Dilaudid IV 1mg Q3hrs PRN for breakthrough. Tizanidine 5mg Q12hrs. - Will gradually decrease pain medications. - Not a surgical candidate per Cardiothoracic surgery. - Acute hypoxic respiratory failure - s/p Extubation. currently on Nasal cannula. - Continue DuoNeb PRN. - IV Drug abuse - Patient has received counselling. - Transfer patient to the floor today. - Patient likely will need watermaster abx. Will consider transferring to the [place] location to continue IV Abx. Full code. SCDs. Problem Qualifiers (1) Infectious endocarditis: West Stone DO May 23, 2016 2:00 pm
[2016-05-23] MEDS ORDERED: PHARMACY ORDERED LAB XX ONE (15:45)
--- NOTE | 2016-05-23 15:55 | HHI.IDPN ---
Subjective Subjective Remarks improved extubated co abdominal cramps, pain no fever x 2-3 days No more + BC last + BC on 05/18 Antibiotics Vanco IV gent rif Lines Left SCL line site with no e/o infection. Past Medical History reviewed Allergies: Coded Allergies: Penicillin (Verified Allergy, Intermediate, Rash, 04/04/16) Has taken Keflex without any problem *MDRO Multi-Drug Resistant Organism (Verified Adverse Reaction, Unknown, ) MRSA (blood) - 05/14/16, 05/16/16, 05/18/16; (sputum) - 05/17/16 Uncoded Allergies: chemical allergy (Allergy, Severe, anaphalactic, 09/27/12) Objective . Vital Signs Date Time Temp Pulse Resp B/P Pulse Ox O2 Delivery O2 Flow Rate FiO2 05/23/16 12:00 91 05/23/16 10:00 90 05/23/16 09:05 97 Nasal Cannula 2.00 05/23/16 08:00 116 05/23/16 08:00 99.5 116 20 160/92 92 Arterial Line 05/23/16 06:00 96 05/23/16 04:00 98.5 105 17 158/83 96 05/23/16 04:00 105 05/23/16 02:00 103 05/23/16 00:00 98.7 99 21 123/63 97 05/23/16 00:00 99 05/22/16 22:00 100 05/22/16 20:15 97 Nasal Cannula 2.00 05/22/16 20:00 98.3 110 22 155/70 94 05/22/16 20:00 110 05/22/16 18:00 110 05/22/16 16:00 109 05/22/16 16:00 98.9 109 20 133/62 93 147/67 05/22/16 05/22/16 05/23/16 15:00 23:00 07:00 Intake Total 1509 ml 857 ml 715 ml Output Total 1450 ml 1350 ml 550 ml Balance 59 ml -493 ml 165 ml Intake Oral 0 ml 240 ml 240 ml IV Total 1226 ml 617 ml 475 ml Tube Feeding 223 ml Other 60 ml Output Urine Total 1450 ml 550 ml 450 ml Stool Total 0 ml 800 ml 100 ml Tube Feeding Residual Discard 0 ml # Bowel Movements 5 . Laboratory Tests Test 05/22/16 05/23/16 04:50 04:09 White Blood Count 18.5 TH/MM3 17.9 TH/MM3 Red Blood Count 3.93 MIL/MM3 3.80 MIL/MM3 Hemoglobin 7.9 GM/DL 7.6 GM/DL Hematocrit 24.8 % 24.0 % Mean Corpuscular Volume 63.2 FL 63.1 FL Mean Corpuscular Hemoglobin 20.2 PG 20.1 PG Mean Corpuscular Hemoglobin 32.0 % 31.9 % Concent Red Cell Distribution Width 28.2 % 28.7 % Platelet Count 304 TH/MM3 377 TH/MM3 Mean Platelet Volume 8.3 FL 8.4 FL Neutrophils (%) (Auto) 91.0 % Lymphocytes (%) (Auto) 5.5 % Monocytes (%) (Auto) 2.5 % Eosinophils (%) (Auto) 0.9 % Basophils (%) (Auto) 0.1 % Neutrophils # (Auto) 16.9 TH/MM3 Lymphocytes # (Auto) 1.0 TH/MM3 Monocytes # (Auto) 0.5 TH/MM3 Eosinophils # (Auto) 0.2 TH/MM3 Basophils # (Auto) 0.0 TH/MM3 CBC Comment AUTO DIFF Differential Total Cells 100 Counted Neutrophils % (Manual) 93 % Band Neutrophils % 3 % Lymphocytes % 3 % Monocytes % 1 % Neutrophils # (Manual) 17.8 TH/MM3 Differential Comment FINAL DIFF MANUAL Platelet Estimate NORMAL Platelet Morphology Comment NORMAL Target Cells 1+ Keratocytes OCC Laboratory Tests Test 05/22/16 05/23/16 04:50 04:09 Sodium Level 137 MEQ/L 137 MEQ/L Potassium Level 3.8 MEQ/L 3.5 MEQ/L Chloride Level 103 MEQ/L 101 MEQ/L Carbon Dioxide Level 29.9 MEQ/L 30.3 MEQ/L Anion Gap 4 MEQ/L 6 MEQ/L Blood Urea Nitrogen 10 MG/DL 11 MG/DL Creatinine 0.42 MG/DL 0.34 MG/DL Estimat Glomerular Filtration 164 ML/MIN 209 ML/MIN Rate Random Glucose 98 MG/DL 80 MG/DL Calcium Level 8.1 MG/DL 8.3 MG/DL Total Bilirubin 0.7 MG/DL Aspartate Amino Transf 20 U/L (AST/SGOT) Alanine Aminotransferase 11 U/L (ALT/SGPT) Alkaline Phosphatase 162 U/L Total Protein 7.1 GM/DL Albumin 1.0 GM/DL Microbiology Date/Time Procedure Status Source Growth 05/21/16 10:45 Aerobic Blood Culture - Preliminary Resulted Blood Peripheral NO GROWTH IN 2 DAYS 05/21/16 10:45 Anaerobic Blood Culture - Preliminary Resulted Blood Peripheral NO GROWTH IN 2 DAYS 05/21/16 10:45 Urine Culture - Final Complete Urine Catheterized Urine Nathalie Glabrata 05/21/16 10:50 Aerobic Blood Culture - Preliminary Resulted Blood Peripheral NO GROWTH IN 2 DAYS 05/21/16 10:50 Anaerobic Blood Culture - Preliminary Resulted Blood Peripheral NO GROWTH IN 2 DAYS Imaging Last Impressions Chest X-Ray 05/19/16 0000 Signed Impressions: Service Date/Time: Thursday, May 19, 2016 14:00 - CONCLUSION: 1. Interval improvement with less interstitial edema. 2. Patchy air space disease remains particularly in the right upper lobe and left base. Austin Dang MD FACR Lumbar Spine X-Ray 05/14/162111 Signed Impressions: Service Date/Time: Saturday, May 14, 2016 21:48 - CONCLUSION: Mild disc space narrowing at the L4-L5 level. Saqib Michele MD Cervical Spine MRI 05/14/162111 Signed Impressions: Service Date/Time: Saturday, May 14, 2016 22:07 - CONCLUSION: 1. Suspected complex fluid collection in the prevertebral soft tissues extending from C3 through T1. This could represent an evolving recent hemorrhage versus other causes for complex fluid collections including an abscess. 2. Susceptibility artifact presumably from hardware at the C4 through C6 levels. There is also some susceptibility artifact at the C7-T1 disc space. 3. Mild to moderate central disc protrusion at the C3-C4 level. 4. Mild disc bulge at the C6-C7 level. Saqib Michele MD Cervical Spine CT 05/14/16 0000 Signed Impressions: Service Date/Time: Saturday, May 14, 2016 23:21 - CONCLUSION: 1. Severe prevertebral soft tissue swelling as seen on the MRI examination which may reflect hemorrhage or abscess. No bony destruction is seen to suggest osteomyelitis. No epidural soft tissue mass is evident. Zack Dumont MD Physical Exam CONSTITUTIONAL/GENERAL: Thin built CF. SKIN: No jaundice, rashes, or lesions. Ecchymoses and hyperpigmented lesions on lower extremities. Track mercado on bilateral UEs. HEAD: Atraumatic. Normocephalic. EYES: Pupils equal and round and reactive. Extraocular motions intact. No scleral icterus. No injection or drainage. Fundi not examined. ENT: orally intubated NECK: Trachea midline. Surgical dressing in place on anterior neck wo drainage CARDIOVASCULAR: Hs audible. No murmur appreciated. RESPIRATORY/CHEST: Symmetric, unlabored respirations. Scattered rhonchi auscultation. GASTROINTESTINAL: Abdomen soft, diffuse tenderness. Mildly to moderately distended GENITOURINARY: Without palpable bladder distension. Enrique catheter in place with clear yellow urine MUSCULOSKELETAL: Extremities without clubbing, cyanosis, 1-2+ soft pitting edema. LYMPHATICS: No palpable cervical or supraclavicular adenopathy. 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 MRSA bacteremia (MRSA MARIA ESTHER in both abscess and blood is 1) Probable endocarditis (Tricuspid vs RV mobile vegetation) acute resp failure: likely sepsis related encephalopathy ? aspiration Aspiration Pneumonia in health care setting. Acute metabolic encephalopathy: sepsis related, [employer] infection. IVDU, active HCV +, HIV - Recs dc Genta IV cont Rifampin (hardware infection for synergy for prosthetic infection, LFTs permitting this should be part of final regimen) for the entire duration of vancomycin tx anticipate fci abx tx at least 6 wks from first negative blood clx Dina Carlos MD May 23, 2016 15:54
[2016-05-23] MEDS: LIDOCAINE HCL 5% PATCH TD SCH (18:48)
[2016-05-23] MEDS: IRON SUCROSE INJ 100 MG in SODIUM CHLORIDE 0.9% INJ 100 ML IV SCH (18:48)
[2016-05-23] MEDS: FAMOTIDINE SUSP 40 MG/5 ML NG SCH (23:55)
[2016-05-24] VITALS: BP 122/65; PULSE 87; RESP 22; TEMP 97.6; O2SAT 98
[2016-05-24] MEDS: ACETAMINOPHEN 650 MG/20.3 ML UDC PO SCH (02:11)
[2016-05-24] MEDS: KETOROLAC TROMETHAMINE 30 MG/ML (IVP) VIAL IV PUSH SCH ×4 (02:12→20:02)
[2016-05-24] MEDS: HYDROmorphone HCL PF 1 MG/ML VIAL IV PRN ×6 (02:12→20:08)
[2016-05-24] MEDS: CHLORHEXIDINE GLUCONATE 2 % 1 PACK (2 CLOTHS) TOP SCH ×2 (04:00→23:25)
[2016-05-24] MEDS: VANCOMYCIN INJ 1,500 MG in SODIUM CHLORID 0.9% 500 ML INJ 500 ML IV SCH (05:12)
[2016-05-24] MEDS: REMOVE OLD PATCH TD SCH (06:00)
[2016-05-24 06:55] LABS: BICARBONATE 29.1 MEQ/L (21.0-32.0); POTASSIUM 3.1 MEQ/L (3.5-5.1)
[2016-05-24 07:02] LABS: HEMATOCRIT 23.2 % (35.0-46.0); MEAN CORPUSCULAR HEMOGLOBIN 20.9 PG (27.0-34.0); MEAN CORPUSCULAR HGB CONC 33.2 % (32.0-36.0); PLATELET COUNT 483 TH/MM3 (150-450); RED BLOOD COUNT 3.68 MIL/MM3 (4.00-5.30); RED CELL DISTRIBUTION WIDTH 29.5 % (11.6-17.2); WHITE BLOOD COUNT 13.5 TH/MM3 (4.0-11.0)
--- NOTE | 2016-05-24 07:22 | HHI.PR ---
Subjective Remarks Follow up for neck abscess s/p retropharyngeal abscess drainage by TIAGO Garibay. Patient complains of lower abdominal pain and she is not able to urinate very well. Earlier this morning, she had difficulty as well but after sometime she was able to urinate. No fever, chills. Objective Vitals Vital Signs Date Time Temp Pulse Resp B/P Pulse Ox O2 Delivery O2 Flow Rate FiO2 05/24/16 00:00 97.6 87 22 122/65 98 05/23/16 20:00 98.3 95 22 130/68 98 05/23/16 16:00 97.6 100 22 138/64 98 05/23/16 16:00 100 05/23/16 14:00 112 05/23/16 12:00 91 05/23/16 12:00 97.7 91 20 107/63 97 05/23/16 10:00 90 05/23/16 09:05 97 Nasal Cannula 2.00 05/23/16 08:00 116 05/23/16 08:00 99.5 116 20 160/92 92 Arterial Line I/O 05/23/16 05/23/16 05/23/16 05/24/16 05/24/16 05/24/16 07:00 15:00 23:00 07:00 15:00 23:00 Intake Total 715 ml 1656 ml 320 ml 1530 ml Output Total 550 ml 400 ml Balance 165 ml 1656 ml 320 ml 1130 ml Intake Oral 240 ml 920 ml 320 ml 320 ml IV Total 475 ml 736 ml 1210 ml Output Urine Total 450 ml 400 ml Stool Total 100 ml # Voids 2 0 # Bowel Movements 3 0 0 Result Diagram: 05/23/16 0409 05/24/16 0620 Imaging Last Impressions Chest X-Ray 05/19/16 0000 Signed Impressions: Service Date/Time: Thursday, May 19, 2016 14:00 - CONCLUSION: 1. Interval improvement with less interstitial edema. 2. Patchy air space disease remains particularly in the right upper lobe and left base. Austin Dang MD FACR Lumbar Spine X-Ray 05/14/162111 Signed Impressions: Service Date/Time: Saturday, May 14, 2016 21:48 - CONCLUSION: Mild disc space narrowing at the L4-L5 level. Saqib Michele MD Cervical Spine MRI 05/14/162 Signed Impressions: Service Date/Time: Saturday, May 14, 2016 22:07 - CONCLUSION: 1. Suspected complex fluid collection in the prevertebral soft tissues extending from C3 through T1. This could represent an evolving recent hemorrhage versus other causes for complex fluid collections including an abscess. 2. Susceptibility artifact presumably from hardware at the C4 through C6 levels. There is also some susceptibility artifact at the C7-T1 disc space. 3. Mild to moderate central disc protrusion at the C3-C4 level. 4. Mild disc bulge at the C6-C7 level. Saqib Michele MD Cervical Spine CT 05/14/16 0000 Signed Impressions: Service Date/Time: Saturday, May 14, 2016 23:21 - CONCLUSION: 1. Severe prevertebral soft tissue swelling as seen on the MRI examination which may reflect hemorrhage or abscess. No bony destruction is seen to suggest osteomyelitis. No epidural soft tissue mass is evident. Zack Dumont MD Objective Remarks GENERAL: Alert, NAD. SKIN: Warm and dry. HEAD: Normocephalic. EYES: No scleral icterus. No injection or drainage. NECK: Supple, trachea midline. No JVD or lymphadenopathy. CARDIOVASCULAR: Regular rate and rhythm without murmurs, gallops, or rubs. RESPIRATORY: Breath sounds equal bilaterally. No accessory muscle use. GASTROINTESTINAL: Abdomen somewhat firm, non-tender, nondistended. MUSCULOSKELETAL: No cyanosis, or edema. BACK: Nontender without obvious deformity. No CVA tenderness. Procedures Transthoracic Echo 05/17/2016 - Left ventricle: The cavity size was normal. Wall thickness was normal. Systolic function was normal. The estimated ejection fraction was in the range of 55% to 60%. Wall motion was normal; there were no regional wall motion abnormalities. Doppler parameters are consistent with abnormal left ventricular relaxation (grade 1 diastolic dysfunction). - Right ventricle: Systolic pressure was increased. - Tricuspid valve: Mild regurgitation. Impressions: Mobile structure at the level of right ventricular septal area VS tricuspid valve. Possible vegetation. PETER strongly recommended Recommendations: Transesophageal echocardiography should be performed in order to exclude ticuspid valve vegetation Transesophageal echocardiogram - Left ventricle: The cavity size was normal. Wall thickness was normal. Systolic function was normal. The estimated ejection fraction was in the range of 55% to 60%. Wall motion was normal; there were no regional wall motion abnormalities. - Aortic valve: No evidence of vegetation. - Mitral valve: No evidence of vegetation. No evidence of vegetation. - Left atrium: No evidence of thrombus in the atrial cavity or appendage. - Right atrium: No evidence of thrombus in the atrial cavity or appendage. - Tricuspid valve: There was a medium-sized, mobile vegetation. Mild regurgitation. ECHOGENIC MOBILE MASS ATTACHED TO THE VALVE CONSISTENT WITH A VEGETATION - Pulmonic valve: No evidence of vegetation. A/P Problem List: (1) Neck abscess ICD Code: L02.11 Status: Acute (2) Infectious endocarditis ICD Code: I33.0 Status: Acute (3) Bacteremia ICD Code: R78.81 Status: Acute (4) IV drug abuse ICD Code: F19.10 Status: Acute Assessment and Plan Ms. Rock is a 45-year-old female with apparently a history of C-spine fusion several years ago who presented to the emergency department with complaints of neck and back pain, and numbness to her right arm on 05/14/2016. MRI imaging indicated a large prevertebral abscess. Neurosurgery performed I&D on 2016. TTE indicated possible endocarditis which was later confirmed with PETER. Patient is currently on Vancomycin, Gentamicin and Rifampin per ID recommendations. Due to worsening respiratory status, patient was intubated on and extubated on 05/22/2016. - Cervical prevertebral abscess - MRSA bacteremia - Tricuspid endocarditis confirmed with PETER. - Continue Vancomycin, Rifampin per ID recommendations. Gentamicin discontinued on 05/22/2016. - Blood culture growing MRSA. Negative blood culture since 05/20/2016. 6 weeks of Vanc/Rifampin starting 05/20/2016. STOP date would be 07/01/2016. - Neurosurgery, ID following. - Pain medications (updated 05/23/2016). Acetaminophen 650mg Q6hrs PRN Gabapentin 300mg TID Toradol 15mg IV Q6hrs (3 days) Lidocaine patch 5% Daily. Methadone 40mg BID -- changed to 20mg TID Oxycodone 20mg Q4hrs -- Changed to 10mg Q4hrs PRN Dilaudid IV 1mg Q3hrs PRN for breakthrough. Tizanidine 5mg Q12hrs. - Will gradually decrease pain medications. - Not a surgical candidate per Cardiothoracic surgery. - Acute hypoxic respiratory failure - s/p Extubation. currently on Nasal cannula. - Continue DuoNeb PRN. - Hypokalemia - K+ 3.1. We will check Mg level. Replete Mg as needed. - Will start replacing potassium with KCL PO. - IV Drug abuse - Patient has received counselling. - Patient likely will need half-way abx. Will consider transferring to the [place] location to continue IV Abx. Full code. SCDs. Problem Qualifiers (1) Infectious endocarditis: Wset Stone DO May 24, 2016 7:22 am
[2016-05-24 08:00] VITALS: BP 139/78; PULSE 98; RESP 16; TEMP 98.5; O2SAT 99
[2016-05-24] MEDS: CHLORHEXIDINE 0.12% (ORAL KIT) 15 ML CUP MT SCH ×2 (08:00→20:00)
[2016-05-24] MEDS: RIFAMPIN 150 MG CAP PO SCH ×2 (08:28→20:05)
[2016-05-24] MEDS: GABAPENTIN 300 MG CAP PO SCH ×3 (08:28→16:17)
[2016-05-24] MEDS: POTASSIUM CL 40 MEQ/30 ML LIQ UDC PO SCH (08:28)
[2016-05-24] MEDS: DOCUSATE SODIUM 50 MG/SENNA 8.6 MG TAB PO SCH ×2 (08:28→20:05)
[2016-05-24] MEDS: SODIUM CHLORIDE 0.9% FLUSH 5 ML FLUSH IVF SCH ×2 (08:29→20:03)
[2016-05-24] MEDS: MULTIVITAMIN HEMATINIC THERAPEUTIC TAB OG SCH ×2 (08:29→20:07)
[2016-05-24] MEDS: METHADONE HCL 10 MG/10 ML ORAL SOLUTION PO/TUBE SCH ×3 (08:29→23:25)
[2016-05-24] MEDS: BENEPROTEIN POWDER 1 PACK G-TUBE SCH ×3 (08:32→16:17)
[2016-05-24 09:15] VITALS: O2SAT 98
[2016-05-24] MEDS: VANCOMYCIN INJ 1,750 MG in SODIUM CHLORID 0.9% 500 ML INJ 500 ML IV SCH ×2 (11:22→20:02)
[2016-05-24 12:00] VITALS: BP 145/84; PULSE 109; RESP 16; TEMP 98.6; O2SAT 96
[2016-05-24 16:00] VITALS: BP 153/84; PULSE 100; RESP 15; TEMP 98.4; O2SAT 98
[2016-05-24] MEDS: IRON SUCROSE INJ 100 MG in SODIUM CHLORIDE 0.9% INJ 100 ML IV SCH (16:16)
[2016-05-24] MEDS: LIDOCAINE HCL 5% PATCH TD SCH (16:17)
[2016-05-24] MEDS: ACETAMINOPHEN 650 MG/20.3 ML UDC PO PRN (16:20)
[2016-05-24] MEDS: LACTOBACILLUS ACIDOPHILUS TAB PO SCH (18:00)
[2016-05-24] MEDS: FAMOTIDINE SUSP 40 MG/5 ML NG SCH (20:03)
[2016-05-24 22:25] VITALS: BP 157/85; PULSE 104; RESP 22; TEMP 97.6; O2SAT 97
[2016-05-25 00:22] VITALS: BP 140/70; PULSE 101; RESP 22; TEMP 99; O2SAT 96
[2016-05-25] MEDS: KETOROLAC TROMETHAMINE 30 MG/ML (IVP) VIAL IV PUSH SCH (01:18)
[2016-05-25] MEDS: HYDROmorphone HCL PF 1 MG/ML VIAL IV PRN ×7 (01:18→22:38)
[2016-05-25] MEDS ORDERED: PHARMACY ORDERED LAB XX ONE (04:45)
[2016-05-25] MEDS: VANCOMYCIN INJ 1,750 MG in SODIUM CHLORID 0.9% 500 ML INJ 500 ML IV SCH (05:11)
[2016-05-25] MEDS: REMOVE OLD PATCH TD SCH (05:12)
[2016-05-25 08:00] VITALS: BP 152/79; PULSE 103; RESP 20; TEMP 99.2; O2SAT 96
[2016-05-25] MEDS: CHLORHEXIDINE 0.12% (ORAL KIT) 15 ML CUP MT SCH ×2 (08:00→19:26)
[2016-05-25] MEDS: BENEPROTEIN POWDER 1 PACK G-TUBE SCH ×3 (09:00→17:54)
[2016-05-25] MEDS: GABAPENTIN 300 MG CAP PO SCH ×3 (09:00→17:54)
[2016-05-25] MEDS: DOCUSATE SODIUM 50 MG/SENNA 8.6 MG TAB PO SCH ×2 (09:00→19:27)
[2016-05-25] MEDS: LACTOBACILLUS ACIDOPHILUS TAB PO SCH ×3 (09:05→17:53)
[2016-05-25] MEDS: TAMSULOSIN HCL 0.4 MG CAP PO SCH (09:05)
[2016-05-25] MEDS: RIFAMPIN 150 MG CAP PO SCH ×2 (09:05→19:26)
[2016-05-25] MEDS: METHADONE HCL 10 MG/10 ML ORAL SOLUTION PO/TUBE SCH ×2 (09:06→15:28)
[2016-05-25] MEDS: MULTIVITAMIN HEMATINIC THERAPEUTIC TAB OG SCH ×2 (09:06→19:25)
[2016-05-25] MEDS: SODIUM CHLORIDE 0.9% FLUSH 5 ML FLUSH IVF SCH ×2 (09:06→19:26)
[2016-05-25] MEDS: POTASSIUM CL 40 MEQ/30 ML LIQ UDC PO SCH (09:06)
--- NOTE | 2016-05-25 09:06 | HHI.PR ---
Subjective Remarks Follow up for neck abscess s/p retropharyngeal abscess drainage by TIAGO Garibay. Patient was crying loud and continuously this morning because she is in a lot of pain. An hour prior to this finding, patient apparently received pain medications. She is found naked in bed with her head towards to the footboard. No fever, chills. Objective Vitals Vital Signs Date Time Temp Pulse Resp B/P Pulse Ox O2 Delivery O2 Flow Rate FiO2 05/25/16 00:22 99.0 101 22 140/70 96 05/24/16 22:25 97.6 104 22 157/85 97 05/24/16 18:31 18 05/24/16 17:20 20 05/24/16 16:42 18 05/24/16 16:00 98.4 100 15 153/84 98 05/24/16 14:13 18 05/24/16 12:00 98.6 109 16 145/84 96 05/24/16 09:15 98 Nasal Cannula 2.00 I/O 05/24/16 05/24/16 05/24/16 05/25/16 05/25/16 05/25/16 07:00 15:00 23:00 07:00 15:00 23:00 Intake Total 1530 ml 2142 ml 1100 ml 914 ml Output Total 400 ml 350 ml 2400 ml Balance 1130 ml 1792 ml -1300 ml 914 ml Intake Oral 320 ml 1200 ml 800 ml IV Total 1210 ml 942 ml 300 ml 914 ml Output Urine Total 400 ml 350 ml 2400 ml # Voids 4 # Bowel Movements 0 0 3 Result Diagram: 05/24/1620 05/24/1620 Objective Remarks GENERAL: Alert, NAD. SKIN: Warm and dry. HEAD: Normocephalic. EYES: No scleral icterus. No injection or drainage. NECK: Supple, trachea midline. No JVD or lymphadenopathy. CARDIOVASCULAR: Regular rate and rhythm without murmurs, gallops, or rubs. RESPIRATORY: Breath sounds equal bilaterally. No accessory muscle use. GASTROINTESTINAL: Abdomen somewhat firm, non-tender, nondistended. MUSCULOSKELETAL: No cyanosis, or edema. BACK: Nontender without obvious deformity. No CVA tenderness. Procedures Transthoracic Echo 05/17/2016 - Left ventricle: The cavity size was normal. Wall thickness was normal. Systolic function was normal. The estimated ejection fraction was in the range of 55% to 60%. Wall motion was normal; there were no regional wall motion abnormalities. Doppler parameters are consistent with abnormal left ventricular relaxation (grade 1 diastolic dysfunction). - Right ventricle: Systolic pressure was increased. - Tricuspid valve: Mild regurgitation. Impressions: Mobile structure at the level of right ventricular septal area VS tricuspid valve. Possible vegetation. PETER strongly recommended Recommendations: Transesophageal echocardiography should be performed in order to exclude ticuspid valve vegetation Transesophageal echocardiogram - Left ventricle: The cavity size was normal. Wall thickness was normal. Systolic function was normal. The estimated ejection fraction was in the range of 55% to 60%. Wall motion was normal; there were no regional wall motion abnormalities. - Aortic valve: No evidence of vegetation. - Mitral valve: No evidence of vegetation. No evidence of vegetation. - Left atrium: No evidence of thrombus in the atrial cavity or appendage. - Right atrium: No evidence of thrombus in the atrial cavity or appendage. - Tricuspid valve: There was a medium-sized, mobile vegetation. Mild regurgitation. ECHOGENIC MOBILE MASS ATTACHED TO THE VALVE CONSISTENT WITH A VEGETATION - Pulmonic valve: No evidence of vegetation. A/P Problem List: (1) Neck abscess ICD Code: L02.11 Status: Acute (2) Infectious endocarditis ICD Code: I33.0 Status: Acute (3) Bacteremia ICD Code: R78.81 Status: Acute (4) IV drug abuse ICD Code: F19.10 Status: Acute Assessment and Plan Ms. Rock is a 45-year-old female with apparently a history of C-spine fusion several years ago who presented to the emergency department with complaints of neck and back pain, and numbness to her right arm on 05/14/2016. MRI imaging indicated a large prevertebral abscess. Neurosurgery performed I&D on 2016. TTE indicated possible endocarditis which was later confirmed with PETER. Patient is currently on Vancomycin, Gentamicin and Rifampin per ID recommendations. Due to worsening respiratory status, patient was intubated on and extubated on 05/22/2016. - Cervical prevertebral abscess - MRSA bacteremia - Tricuspid endocarditis confirmed with PETER. - Continue Vancomycin, Rifampin per ID recommendations. Gentamicin discontinued on 05/22/2016. - Blood culture growing MRSA. Negative blood culture since 05/20/2016. 6 weeks of Vanc/Rifampin starting 05/20/2016. STOP date would be 07/01/2016. - Neurosurgery, ID following. - Pain medications (updated 05/23/2016). Acetaminophen 650mg Q6hrs PRN Gabapentin 300mg TID Lidocaine patch 5% Daily. Methadone 20mg TID. Will reduce methadone on 05/26/2016. Oxycodone 10mg Q4hrs PRN Dilaudid IV 1mg Q3hrs PRN for breakthrough. Reduce Dilaudid to 0.5mg Q3hrs PRN. Tizanidine 5mg Q12hrs. Difficult patient to taper pain medications. - Will gradually decrease pain medications. - Not a surgical candidate per Cardiothoracic surgery. - Acute hypoxic respiratory failure - s/p Extubation. currently on Nasal cannula. - Continue DuoNeb PRN. - Hypokalemia - K+ 3.1. We will check Mg level. Replete Mg as needed. - Continue replacing potassium with KCL PO. - IV Drug abuse - Patient has received counselling. - Agitation - Will start patient on Seroquel 25mg BID. Our goal is to keep her more calm and reduce pain medications. - Patient likely will need long-term abx. Will consider transferring to the [place] to continue IV Abx. Full code. SCDs. Problem Qualifiers (1) Infectious endocarditis: West Stone DO May 25, 2016 9:06 am
[2016-05-25] MEDS: ACETAMINOPHEN 650 MG/20.3 ML UDC PO PRN ×2 (09:14→18:03)
[2016-05-25] MEDS: QUEtiapine FUMARATE 25 MG TAB PO SCH ×2 (09:14→19:25)
[2016-05-25] MEDS: VANCOMYCIN INJ 1,500 MG in SODIUM CHLORID 0.9% 500 ML INJ 500 ML IV SCH ×2 (11:36→19:36)
[2016-05-25 12:00] VITALS: BP 139/74; PULSE 101; RESP 17; TEMP 98.7; O2SAT 96
[2016-05-25 16:00] VITALS: BP 169/86; PULSE 113; RESP 20; TEMP 100.1; O2SAT 93
[2016-05-25] MEDS: LIDOCAINE HCL 5% PATCH TD SCH (17:54)
[2016-05-25] MEDS: FAMOTIDINE SUSP 40 MG/5 ML NG SCH (19:27)
[2016-05-25 20:00] VITALS: BP 167/86; PULSE 110; RESP 18; TEMP 98.4; O2SAT 96
[2016-05-26] VITALS: BP 137/81; PULSE 86; RESP 17; TEMP 97.2; O2SAT 96
[2016-05-26] MEDS: METHADONE HCL 10 MG/10 ML ORAL SOLUTION PO/TUBE SCH ×3 (00:02→20:05)
[2016-05-26] MEDS: HYDROmorphone HCL PF 1 MG/ML VIAL IV PRN ×5 (01:57→23:43)
[2016-05-26] MEDS: ACETAMINOPHEN 650 MG/20.3 ML UDC PO PRN ×2 (02:06→11:56)
[2016-05-26] MEDS: CHLORHEXIDINE GLUCONATE 2 % 1 PACK (2 CLOTHS) TOP SCH (03:36)
[2016-05-26] MEDS ORDERED: PHARMACY ORDERED LAB XX ONE (04:45)
[2016-05-26] MEDS: VANCOMYCIN INJ 1,500 MG in SODIUM CHLORID 0.9% 500 ML INJ 500 ML IV SCH ×3 (05:30→20:07)
[2016-05-26] MEDS: REMOVE OLD PATCH TD SCH (06:00)
[2016-05-26 08:00] VITALS: BP 154/85; PULSE 97; RESP 16; TEMP 98.5; O2SAT 95
[2016-05-26] MEDS: CHLORHEXIDINE 0.12% (ORAL KIT) 15 ML CUP MT SCH ×2 (08:00→20:00)
[2016-05-26] MEDS: POTASSIUM CL 40 MEQ/30 ML LIQ UDC PO SCH (08:20)
[2016-05-26] MEDS: RIFAMPIN 150 MG CAP PO SCH ×2 (08:20→20:06)
[2016-05-26] MEDS: MULTIVITAMIN HEMATINIC THERAPEUTIC TAB OG SCH ×2 (08:21→20:06)
[2016-05-26] MEDS: TAMSULOSIN HCL 0.4 MG CAP PO SCH (08:21)
[2016-05-26] MEDS: QUEtiapine FUMARATE 25 MG TAB PO SCH ×2 (08:22→20:05)
[2016-05-26] MEDS: SODIUM CHLORIDE 0.9% FLUSH 5 ML FLUSH IVF SCH ×2 (08:22→20:07)
[2016-05-26] MEDS: GABAPENTIN 300 MG CAP PO SCH ×3 (08:22→17:07)
[2016-05-26] MEDS: LACTOBACILLUS ACIDOPHILUS TAB PO SCH ×3 (08:22→17:07)
[2016-05-26] MEDS: DOCUSATE SODIUM 50 MG/SENNA 8.6 MG TAB PO SCH ×2 (08:23→20:06)
[2016-05-26] MEDS: BENEPROTEIN POWDER 1 PACK G-TUBE SCH ×3 (08:23→18:00)
--- NOTE | 2016-05-26 10:58 | HHI.PR ---
Subjective Remarks Follow up for neck abscess s/p retropharyngeal abscess drainage. Patient is more calm today. Denies any chest pain, SOB, fever, chills. Objective Vitals Vital Signs Date Time Temp Pulse Resp B/P Pulse Ox O2 Delivery O2 Flow Rate FiO2 05/26/16 08:00 98.5 97 16 154/85 95 05/26/16 00:00 97.2 86 17 137/81 96 05/25/16 20:00 98.4 110 18 167/86 96 05/25/16 18:24 20 05/25/16 16:28 20 05/25/16 16:00 100.1 113 20 169/86 93 05/25/16 12:00 98.7 101 17 139/74 96 I/O 05/25/16 05/25/16 05/25/16 05/26/16 05/26/16 05/26/16 07:00 15:00 23:00 07:00 15:00 23:00 Intake Total 914 ml 1928 ml 480 ml 240 ml Output Total 2625 ml 1800 ml 3000 ml Balance 914 ml -697 ml -1320 ml -2760 ml Intake Oral 1500 ml 480 ml 240 ml IV Total 914 ml 428 ml Output Urine Total 2625 ml 1800 ml 3000 ml # Bowel Movements 4 Result Diagram: 05/24/16 0620 05/24/16 0620 Imaging Last Impressions Chest X-Ray 05/19/16 0000 Signed Impressions: Service Date/Time: Thursday, May 19, 2016 14:00 - CONCLUSION: 1. Interval improvement with less interstitial edema. 2. Patchy air space disease remains particularly in the right upper lobe and left base. Austin Dang MD FACR Lumbar Spine X-Ray 05/14/162111 Signed Impressions: Service Date/Time: Saturday, May 14, 2016 21:48 - CONCLUSION: Mild disc space narrowing at the L4-L5 level. Saqib Michele MD Cervical Spine MRI 05/14/162111 Signed Impressions: Service Date/Time: Saturday, May 14, 2016 22:07 - CONCLUSION: 1. Suspected complex fluid collection in the prevertebral soft tissues extending from C3 through T1. This could represent an evolving recent hemorrhage versus other causes for complex fluid collections including an abscess. 2. Susceptibility artifact presumably from hardware at the C4 through C6 levels. There is also some susceptibility artifact at the C7-T1 disc space. 3. Mild to moderate central disc protrusion at the C3-C4 level. 4. Mild disc bulge at the C6-C7 level. Saqib Michele MD Cervical Spine CT 05/14/16 0000 Signed Impressions: Service Date/Time: Saturday, May 14, 2016 23:21 - CONCLUSION: 1. Severe prevertebral soft tissue swelling as seen on the MRI examination which may reflect hemorrhage or abscess. No bony destruction is seen to suggest osteomyelitis. No epidural soft tissue mass is evident. Zack Dumont MD Objective Remarks GENERAL: Alert, NAD. SKIN: Warm and dry. HEAD: Normocephalic. EYES: No scleral icterus. No injection or drainage. NECK: Supple, trachea midline. No JVD or lymphadenopathy. CARDIOVASCULAR: Regular rate and rhythm without murmurs, gallops, or rubs. RESPIRATORY: Breath sounds equal bilaterally. No accessory muscle use. GASTROINTESTINAL: Abdomen somewhat firm, non-tender, nondistended. MUSCULOSKELETAL: No cyanosis, or edema. BACK: Nontender without obvious deformity. No CVA tenderness. Procedures Transthoracic Echo 05/17/2016 - Left ventricle: The cavity size was normal. Wall thickness was normal. Systolic function was normal. The estimated ejection fraction was in the range of 55% to 60%. Wall motion was normal; there were no regional wall motion abnormalities. Doppler parameters are consistent with abnormal left ventricular relaxation (grade 1 diastolic dysfunction). - Right ventricle: Systolic pressure was increased. - Tricuspid valve: Mild regurgitation. Impressions: Mobile structure at the level of right ventricular septal area VS tricuspid valve. Possible vegetation. PETER strongly recommended Recommendations: Transesophageal echocardiography should be performed in order to exclude ticuspid valve vegetation Transesophageal echocardiogram - Left ventricle: The cavity size was normal. Wall thickness was normal. Systolic function was normal. The estimated ejection fraction was in the range of 55% to 60%. Wall motion was normal; there were no regional wall motion abnormalities. - Aortic valve: No evidence of vegetation. - Mitral valve: No evidence of vegetation. No evidence of vegetation. - Left atrium: No evidence of thrombus in the atrial cavity or appendage. - Right atrium: No evidence of thrombus in the atrial cavity or appendage. - Tricuspid valve: There was a medium-sized, mobile vegetation. Mild regurgitation. ECHOGENIC MOBILE MASS ATTACHED TO THE VALVE CONSISTENT WITH A VEGETATION - Pulmonic valve: No evidence of vegetation. A/P Problem List: (1) Neck abscess ICD Code: L02.11 Status: Acute (2) Infectious endocarditis ICD Code: I33.0 Status: Acute (3) Bacteremia ICD Code: R78.81 Status: Acute (4) IV drug abuse ICD Code: F19.10 Status: Acute Assessment and Plan Ms. Rock is a 45-year-old female with apparently a history of C-spine fusion several years ago who presented to the emergency department with complaints of neck and back pain, and numbness to her right arm on 05/14/2016. MRI imaging indicated a large prevertebral abscess. Neurosurgery performed I&D on 2016. TTE indicated possible endocarditis which was later confirmed with PETER. Patient is currently on Vancomycin, Gentamicin and Rifampin per ID recommendations. Due to worsening respiratory status, patient was intubated on and extubated on 05/22/2016. - Cervical prevertebral abscess - MRSA bacteremia - Tricuspid endocarditis confirmed with PETER. - Continue Vancomycin, Rifampin per ID recommendations. Gentamicin discontinued on 05/22/2016. - Blood culture growing MRSA. Negative blood culture since 05/20/2016. 6 weeks of Vanc/Rifampin starting 05/20/2016. STOP date would be 07/01/2016. - Neurosurgery, ID following. - Pain medications (updated 05/23/2016). Acetaminophen 650mg Q6hrs PRN Gabapentin 300mg TID Lidocaine patch 5% Daily. Methadone 20mg TID - reduce today to 20mg BID. Oxycodone 10mg Q4hrs PRN Dilaudid IV 0.5 mg Q3hrs PRN for breakthrough. Tizanidine 5mg Q12hrs. Difficult patient to taper pain medications. - Will gradually decrease pain medications. - Not a surgical candidate per Cardiothoracic surgery. - Acute hypoxic respiratory failure - s/p Extubation. currently on Nasal cannula. - Continue DuoNeb PRN. - Hypokalemia - K+ 3.1. We will check Mg level. Replete Mg as needed. - Continue replacing potassium with KCL PO. - IV Drug abuse - Patient has received counselling. - Agitation - Continue Seroquel 25mg BID. Our goal is to keep her more calm and reduce pain medications. 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 Will consider transferring to the [place] to continue IV Abx. Full code. SCDs. Problem Qualifiers (1) Infectious endocarditis: West Stone DO May 26, 2016 10:58 West Stone DO May 26, 2016 10:58 am
[2016-05-26] MEDS: oxyCODONE HCL ORAL CONC 20 MG/ML SYRINGE PO PRN ×3 (11:17→22:41)
[2016-05-26 12:00] VITALS: BP 153/85; PULSE 96; RESP 16; TEMP 98.1; O2SAT 95
--- NOTE | 2016-05-26 12:42 | HHI.NSPN ---
History Chief Complaint: s/p evacuation of cervical retropharyngeal abscess Interval History 45-year-old female admitted through the emergency room on the evening of 05/14/16 , who complains of approximately 1 week of neck pain since she fell a week ago. She states for the past 3 or 4 days she has noted severe increase in the neck pain as well as some paresthesias in the upper and lower extremities and aggressive somewhat diffuse spinal region pain as well as extremity pain and muscular discomfort. She complains of positive fever and chills in the past couple days. She states she has had some trouble walking in the past couple days due to the diffuse pain. No loss of bowel or bladder function. The patient was recently admitted to the hospital on 04/01/16 with a hand abscess secondary to IV drug use, with sepsis. Cultures grew group A beta strep. She was discharged after approximately a week of antibiotics. The patient does have a history of previous neck surgery in 2007 following an injury where she fell onto the floor. She has had some chronic neck pain and extremity paresthesias since that time. She has had numerous admissions in the past few years for skin infections, likely related to IV drug abuse. 05/16/16: Pt awake and alert. Complains of pain all over but will fall asleep. Follows commands well. Agitated at times. 05/17/16: Pt on bipap last night. She opens eyes and complains of pain all over. Follows commands well. 05/18/16: Pt intubated. opens eyes to voice. Not following commands. Pupils equal. 05/22/16: Pt intubated. Pt opens eyes to voice. Pupils equal. Nods head to some questions. Follows commands. 05/26/16: Pt awake and alert. States neck pain improving. She complains of nonradiating pain in arms. She has weakness in RUE with abduction. She states her left leg is weak. Review of Systems General: Negative for: fever, chills, insomnia Respiratory: Positive for: cough, Negative for: shortness of breath, sputum Cardiovascular: Negative for: chest pain Gastrointestinal: Negative for: nausea, vomitting, diarrhea, constipation Exam Results Vital Signs Date Time Temp Pulse Resp B/P Pulse Ox O2 Delivery O2 Flow Rate FiO2 05/26/16 12:00 98.1 96 16 153/85 95 05/24/16 09:15 Nasal Cannula 2.00 05/22/16 12:00 40 Intake and Output 05/25/16 05/25/16 05/26/16 08:00 16:00 00:00 Intake Total 914 ml 1928 ml 480 ml Output Total 2625 ml 1800 ml Balance 914 ml -697 ml -1320 ml Physical Examination Resp: CTA bilaterally. Intubated. Heart: NSR no murmurs Abd: Soft. positive bs Skin: Anterior cervical incision clean and dry. Muscle: Moves all 4 extremities to command. Right upper extremity abduction weakness. Neuro: Following simple commands. Pupils equal. Lab, Micro, Other Results Laboratory Tests Test 05/26/16 05:20 Vancomycin Level Trough 18.8 MCG/ML 05/25/16 05/25/16 05/26/16 15:00 23:00 07:00 Intake Total 1928 ml 480 ml 240 ml Output Total 2625 ml 1800 ml 3000 ml Balance -697 ml -1320 ml -2760 ml Intake Oral 1500 ml 480 ml 240 ml IV Total 428 ml Output Urine Total 2625 ml 1800 ml 3000 ml # Bowel Movements 4 Medical Decision Making Impression and Plan A: 45 y/o FM with 1. Neck abscess in patient with history of IV drug abuse, recent admission for hand infection with sepsis. s/p retropharyngeal abscess drainage by Dr. Oliver 2. History thalassemia Plan: Continue with current care Continue with rehab efforts. Yvan Quesada May 26, 2016 12:42
[2016-05-26 16:00] VITALS: BP 136/79; PULSE 102; RESP 16; TEMP 98.6; O2SAT 96
[2016-05-26] MEDS: LIDOCAINE HCL 5% PATCH TD SCH (17:07)
[2016-05-26 20:00] VITALS: BP 159/80; PULSE 114; RESP 16; TEMP 100; O2SAT 95
[2016-05-26] MEDS: FAMOTIDINE SUSP 40 MG/5 ML NG SCH (20:06)
[2016-05-27] VITALS (7 sets, daily range): BP systolic 128–161; BP diastolic 77–92; PULSE 94–111; RESP 18–20; TEMP 97.1–100.4; O2SAT 92–99
[2016-05-27] MEDS: oxyCODONE HCL ORAL CONC 20 MG/ML SYRINGE PO PRN ×4 (02:57→22:03)
[2016-05-27] MEDS: ACETAMINOPHEN 650 MG/20.3 ML UDC PO PRN (03:00)
[2016-05-27] MEDS: CHLORHEXIDINE GLUCONATE 2 % 1 PACK (2 CLOTHS) TOP SCH (04:00)
[2016-05-27] MEDS ORDERED: PHARMACY ORDERED LAB XX ONE (04:45)
[2016-05-27] MEDS: HYDROmorphone HCL PF 1 MG/ML VIAL IV PRN ×4 (05:11→23:23)
[2016-05-27] MEDS: VANCOMYCIN INJ 1,500 MG in SODIUM CHLORID 0.9% 500 ML INJ 500 ML IV SCH ×3 (05:15→20:01)
[2016-05-27] MEDS: REMOVE OLD PATCH TD SCH (06:00)
[2016-05-27] MEDS: CHLORHEXIDINE 0.12% (ORAL KIT) 15 ML CUP MT SCH ×2 (08:00→20:00)
[2016-05-27] MEDS: GABAPENTIN 300 MG CAP PO SCH ×3 (08:17→16:57)
[2016-05-27] MEDS: RIFAMPIN 150 MG CAP PO SCH ×2 (08:17→20:00)
[2016-05-27] MEDS: METHADONE HCL 10 MG/10 ML ORAL SOLUTION PO/TUBE SCH ×2 (08:17→19:59)
[2016-05-27] MEDS: MULTIVITAMIN HEMATINIC THERAPEUTIC TAB OG SCH ×2 (08:17→20:00)
[2016-05-27] MEDS: QUEtiapine FUMARATE 25 MG TAB PO SCH ×2 (08:17→20:00)
[2016-05-27] MEDS: TAMSULOSIN HCL 0.4 MG CAP PO SCH (08:17)
[2016-05-27] MEDS: LACTOBACILLUS ACIDOPHILUS TAB PO SCH ×3 (08:17→16:57)
[2016-05-27] MEDS: SODIUM CHLORIDE 0.9% FLUSH 5 ML FLUSH IVF SCH ×2 (08:18→20:02)
[2016-05-27] MEDS: DOCUSATE SODIUM 50 MG/SENNA 8.6 MG TAB PO SCH ×2 (08:18→20:01)
[2016-05-27] MEDS: BENEPROTEIN POWDER 1 PACK G-TUBE SCH ×3 (08:19→17:50)
[2016-05-27] MEDS: CETIRIZINE HCL 10 MG TAB PO SCH (13:03)
[2016-05-27] MEDS: LIDOCAINE HCL 5% PATCH TD SCH (16:58)
--- NOTE | 2016-05-27 18:28 | HHI.PR ---
Subjective Remarks Follow up for neck abscess s/p retropharyngeal abscess drainage. Ms. Rock appears calm. She complains significant back pain. No fever, chills. Tolerating diet well. Objective Vitals Vital Signs Date Time Temp Pulse Resp B/P Pulse Ox O2 Delivery O2 Flow Rate FiO2 05/27/16 17:16 99.5 99 19 144/79 94 05/27/16 12:30 99.0 109 19 141/84 96 05/27/16 08:30 97.1 99 18 161/83 97 05/27/16 06:00 97.3 94 18 129/77 98 05/27/16 05:41 16 05/27/16 04:00 97.8 104 18 138/92 97 05/27/16 03:57 16 05/27/16 03:57 16 05/27/16 00:00 100.2 108 18 147/82 92 05/26/16 21:02 16 05/26/16 20:00 100.0 114 16 159/80 95 I/O 05/26/16 05/26/16 05/26/16 05/27/16 05/27/16 05/27/16 07:00 15:00 23:00 07:00 15:00 23:00 Intake Total 240 ml 1496 ml 240 ml 560 ml 925 ml Output Total 3000 ml 2200 ml 400 ml 2350 ml 2000 ml Balance -2760 ml -704 ml -160 ml -1790 ml -1075 ml Intake Oral 240 ml 650 ml 240 ml 360 ml 925 ml IV Total 846 ml 200 ml Output Urine Total 3000 ml 2200 ml 400 ml 650 ml 2000 ml Stool Total 1700 ml # Bowel Movements 1 2 0 Result Diagram: 05/24/16 0620 05/27/16 0500 Imaging Last Impressions Chest X-Ray 05/19/16 0000 Signed Impressions: Service Date/Time: Thursday, May 19, 2016 14:00 - CONCLUSION: 1. Interval improvement with less interstitial edema. 2. Patchy air space disease remains particularly in the right upper lobe and left base. Austin Dang MD FACR Lumbar Spine X-Ray 05/14/162 Signed Impressions: Service Date/Time: Saturday, May 14, 2016 21:48 - CONCLUSION: Mild disc space narrowing at the L4-L5 level. Saqib Michele MD Cervical Spine MRI 05/14/162 Signed Impressions: Service Date/Time: Saturday, May 14, 2016 22:07 - CONCLUSION: 1. Suspected complex fluid collection in the prevertebral soft tissues extending from C3 through T1. This could represent an evolving recent hemorrhage versus other causes for complex fluid collections including an abscess. 2. Susceptibility artifact presumably from hardware at the C4 through C6 levels. There is also some susceptibility artifact at the C7-T1 disc space. 3. Mild to moderate central disc protrusion at the C3-C4 level. 4. Mild disc bulge at the C6-C7 level. Saqib Michele MD Cervical Spine CT 05/14/16 0000 Signed Impressions: Service Date/Time: Saturday, May 14, 2016 23:21 - CONCLUSION: 1. Severe prevertebral soft tissue swelling as seen on the MRI examination which may reflect hemorrhage or abscess. No bony destruction is seen to suggest osteomyelitis. No epidural soft tissue mass is evident. Zack Dumont MD Objective Remarks GENERAL: Alert, NAD. SKIN: Warm and dry. HEAD: Normocephalic. EYES: No scleral icterus. No injection or drainage. NECK: Supple, trachea midline. No JVD or lymphadenopathy. CARDIOVASCULAR: Regular rate and rhythm without murmurs, gallops, or rubs. RESPIRATORY: Breath sounds equal bilaterally. No accessory muscle use. GASTROINTESTINAL: Abdomen somewhat firm, non-tender, nondistended. MUSCULOSKELETAL: No cyanosis, or edema. BACK: Nontender without obvious deformity. No CVA tenderness. Procedures Transthoracic Echo 05/17/2016 - Left ventricle: The cavity size was normal. Wall thickness was normal. Systolic function was normal. The estimated ejection fraction was in the range of 55% to 60%. Wall motion was normal; there were no regional wall motion abnormalities. Doppler parameters are consistent with abnormal left ventricular relaxation (grade 1 diastolic dysfunction). - Right ventricle: Systolic pressure was increased. - Tricuspid valve: Mild regurgitation. Impressions: Mobile structure at the level of right ventricular septal area VS tricuspid valve. Possible vegetation. PETER strongly recommended Recommendations: Transesophageal echocardiography should be performed in order to exclude ticuspid valve vegetation Transesophageal echocardiogram - Left ventricle: The cavity size was normal. Wall thickness was normal. Systolic function was normal. The estimated ejection fraction was in the range of 55% to 60%. Wall motion was normal; there were no regional wall motion abnormalities. - Aortic valve: No evidence of vegetation. - Mitral valve: No evidence of vegetation. No evidence of vegetation. - Left atrium: No evidence of thrombus in the atrial cavity or appendage. - Right atrium: No evidence of thrombus in the atrial cavity or appendage. - Tricuspid valve: There was a medium-sized, mobile vegetation. Mild regurgitation. ECHOGENIC MOBILE MASS ATTACHED TO THE VALVE CONSISTENT WITH A VEGETATION - Pulmonic valve: No evidence of vegetation. A/P Problem List: (1) Neck abscess ICD Code: L02.11 Status: Acute (2) Infectious endocarditis ICD Code: I33.0 Status: Acute (3) Bacteremia ICD Code: R78.81 Status: Acute (4) IV drug abuse ICD Code: F19.10 Status: Acute Assessment and Plan Ms. Rock is a 45-year-old female with apparently a history of C-spine fusion several years ago who presented to the emergency department with complaints of neck and back pain, and numbness to her right arm on 05/14/2016. MRI imaging indicated a large prevertebral abscess. Neurosurgery performed I&D on 2016. TTE indicated possible endocarditis which was later confirmed with PETER. Patient is currently on Vancomycin, Gentamicin and Rifampin per ID recommendations. Due to worsening respiratory status, patient was intubated on and extubated on 05/22/2016. - Cervical prevertebral abscess - MRSA bacteremia - Tricuspid endocarditis confirmed with PETER. - Continue Vancomycin, Rifampin per ID recommendations. Gentamicin discontinued on 05/22/2016. - Blood culture growing MRSA. Negative blood culture since 05/20/2016. 6 weeks of Vanc/Rifampin starting 05/20/2016. STOP date would be 07/01/2016. - Neurosurgery, ID following. - Pain medications (updated 05/23/2016). Acetaminophen 650mg Q6hrs PRN Gabapentin 300mg TID Lidocaine patch 5% Daily. Methadone 20mg BID. Oxycodone 10mg Q4hrs PRN Dilaudid IV 0.5 mg Q3hrs PRN for breakthrough. Tizanidine 5mg Q12hrs. Difficult patient to taper pain medications. - Will gradually decrease pain medications. - Not a surgical candidate per Cardiothoracic surgery. - Acute hypoxic respiratory failure - s/p Extubation. currently on Nasal cannula. - Continue DuoNeb PRN. - Hypokalemia - Continue replacing potassium with KCL PO. - CBC, BMP in the AM. - IV Drug abuse - Patient has received counselling. - Agitation - Continue Seroquel 25mg BID. Our goal is to keep her more calm and reduce pain medications. 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 Will consider transferring to the [facility] to continue IV Abx. Full code. SCDs. Problem Qualifiers (1) Infectious endocarditis: West Stone DO May 27, 2016 18:28
[2016-05-27] MEDS: FAMOTIDINE SUSP 40 MG/5 ML NG SCH (19:59)
[2016-05-28] VITALS: BP 116/74; PULSE 102; RESP 20; TEMP 100.5; O2SAT 96
[2016-05-28] MEDS: ACETAMINOPHEN 650 MG/20.3 ML UDC PO PRN (00:27)
[2016-05-28] MEDS: HYDROmorphone HCL PF 1 MG/ML VIAL IV PRN ×4 (02:51→18:44)
[2016-05-28 04:00] VITALS: BP 152/87; PULSE 94; RESP 20; TEMP 95.9; O2SAT 95
[2016-05-28] MEDS: CHLORHEXIDINE GLUCONATE 2 % 1 PACK (2 CLOTHS) TOP SCH (04:00)
[2016-05-28] MEDS: oxyCODONE HCL ORAL CONC 20 MG/ML SYRINGE PO PRN ×3 (04:50→17:39)
[2016-05-28] MEDS: VANCOMYCIN INJ 1,500 MG in SODIUM CHLORID 0.9% 500 ML INJ 500 ML IV SCH ×3 (04:51→22:15)
[2016-05-28] MEDS: REMOVE OLD PATCH TD SCH (04:52)
[2016-05-28 05:55] LABS: AUTOMATED NEUTROPHIL # 6.9 TH/MM3 (1.8-7.7); BASOPHIL # 0.1 TH/MM3 (0-0.2); BASOPHIL % 0.5 % (0.0-2.0); EOSINOPHIL # 0.2 TH/MM3 (0-0.4); HEMATOCRIT 25.7 % (35.0-46.0); LYMPH % 22.1 % (9.0-44.0); LYMPHOCYTE # 2.3 TH/MM3 (1.0-4.8); MEAN CELL VOLUME 63.1 FL (80.0-100.0); MEAN CORPUSCULAR HEMOGLOBIN 20.5 PG (27.0-34.0); MEAN CORPUSCULAR HGB CONC 32.5 % (32.0-36.0); MONO % 7.9 % (0.0-8.0); NEUT % 67.5 % (16.0-70.0); PLATELET COUNT 599 TH/MM3 (150-450); RED BLOOD COUNT 4.07 MIL/MM3 (4.00-5.30); RED CELL DISTRIBUTION WIDTH 30.8 % (11.6-17.2); WHITE BLOOD COUNT 10.2 TH/MM3 (4.0-11.0)
[2016-05-28 06:01] LABS: HEMO FLAGS AUTO DIFF
[2016-05-28 06:37] LABS: BICARBONATE 28.6 MEQ/L (21.0-32.0); POTASSIUM 3.7 MEQ/L (3.5-5.1)
[2016-05-28 08:00] VITALS: BP 145/85; PULSE 92; RESP 18; TEMP 99.2; O2SAT 94
[2016-05-28 08:00] LABS: TARGET CELLS 1+ (NORMAL)
[2016-05-28] MEDS: CHLORHEXIDINE 0.12% (ORAL KIT) 15 ML CUP MT SCH ×2 (08:00→20:00)
[2016-05-28 08:01] LABS: ACANTHOCYTES OCC (NORMAL); OVALOCYTES 1+ (NORMAL); PLATELET ESTIMATE SMEAR HIGH (NORMAL); PLATELET MORPHOLOGY NORMAL (NORMAL)
[2016-05-28 08:02] LABS: SCAN/DIFF AUTO DIFF CONFIRMED
[2016-05-28] MEDS: METHADONE HCL 10 MG/10 ML ORAL SOLUTION PO/TUBE SCH ×2 (08:49→22:15)
[2016-05-28] MEDS: MULTIVITAMIN HEMATINIC THERAPEUTIC TAB OG SCH ×2 (08:49→22:15)
[2016-05-28] MEDS: GABAPENTIN 300 MG CAP PO SCH ×3 (08:49→17:39)
[2016-05-28] MEDS: CETIRIZINE HCL 10 MG TAB PO SCH (08:49)
[2016-05-28] MEDS: LACTOBACILLUS ACIDOPHILUS TAB PO SCH ×3 (08:50→17:39)
[2016-05-28] MEDS: DOCUSATE SODIUM 50 MG/SENNA 8.6 MG TAB PO SCH ×2 (08:50→22:15)
[2016-05-28] MEDS: QUEtiapine FUMARATE 25 MG TAB PO SCH ×2 (08:50→22:15)
[2016-05-28] MEDS: RIFAMPIN 150 MG CAP PO SCH ×2 (08:50→22:15)
[2016-05-28] MEDS: TAMSULOSIN HCL 0.4 MG CAP PO SCH (08:50)
[2016-05-28] MEDS: SODIUM CHLORIDE 0.9% FLUSH 5 ML FLUSH IVF SCH (09:00)
[2016-05-28] MEDS: BENEPROTEIN POWDER 1 PACK G-TUBE SCH ×3 (09:00→17:40)
[2016-05-28] MEDS ORDERED: PHENYLEPH/NS 1000 MCG/10 ML SYR IV ONE (09:14)
[2016-05-28] MEDS ORDERED: NEOSTIGMINE 3 MG/3 ML SYR IV ONE (09:14)
[2016-05-28] MEDS ORDERED: ONDANSETRON HCL 4 MG/2 ML VIAL IV PUSH ONE (09:14)
[2016-05-28] MEDS ORDERED: PROPOFOL 200 MG/20 ML AMP IV ONE (09:14)
[2016-05-28] MEDS ORDERED: SODIUM CHLORID 0.9% 500 ML INJ 500 ML IV ONE (09:14)
--- NOTE | 2016-05-28 10:24 | HHI.PR ---
Subjective Remarks Follow up for neck abscess s/p retropharyngeal abscess drainage. Ms. Rock is doing well. Resting in bed comfortably. No acute concerns. Objective Vitals Vital Signs Date Time Temp Pulse Resp B/P Pulse Ox O2 Delivery O2 Flow Rate FiO2 05/28/16 08:00 99.2 92 18 145/85 94 05/28/16 05:50 16 05/28/16 04:00 95.9 94 20 152/87 95 05/28/16 03:21 16 05/28/16 01:27 16 05/28/16 00:00 100.5 102 20 116/74 96 05/27/16 20:59 16 05/27/16 20:00 100.4 111 20 128/92 99 05/27/16 17:16 99.5 99 19 144/79 94 05/27/16 12:30 99.0 109 19 141/84 96 I/O 05/27/16 05/27/16 05/27/16 05/28/16 05/28/16 05/28/16 07:00 15:00 23:00 07:00 15:00 23:00 Intake Total 560 ml 925 ml 720 ml 480 ml 500 ml Output Total 2350 ml 2000 ml 700 ml 1200 ml Balance -1790 ml -1075 ml 20 ml -720 ml 500 ml Intake Oral 360 ml 925 ml 720 ml 480 ml IV Total 200 ml 500 ml Output Urine Total 650 ml 2000 ml 700 ml 1200 ml Stool Total 1700 ml # Bowel Movements 2 0 1 1 Result Diagram: 05/28/16 0500 05/28/16 0500 Objective Remarks GENERAL: Alert, NAD. SKIN: Warm and dry. HEAD: Normocephalic. EYES: No scleral icterus. No injection or drainage. NECK: Supple, trachea midline. No JVD or lymphadenopathy. CARDIOVASCULAR: Regular rate and rhythm without murmurs, gallops, or rubs. RESPIRATORY: Breath sounds equal bilaterally. No accessory muscle use. GASTROINTESTINAL: Abdomen somewhat firm, non-tender, nondistended. MUSCULOSKELETAL: No cyanosis, or edema. BACK: Nontender without obvious deformity. No CVA tenderness. Procedures Transthoracic Echo 05/17/2016 - Left ventricle: The cavity size was normal. Wall thickness was normal. Systolic function was normal. The estimated ejection fraction was in the range of 55% to 60%. Wall motion was normal; there were no regional wall motion abnormalities. Doppler parameters are consistent with abnormal left ventricular relaxation (grade 1 diastolic dysfunction). - Right ventricle: Systolic pressure was increased. - Tricuspid valve: Mild regurgitation. Impressions: Mobile structure at the level of right ventricular septal area VS tricuspid valve. Possible vegetation. PETER strongly recommended Recommendations: Transesophageal echocardiography should be performed in order to exclude ticuspid valve vegetation Transesophageal echocardiogram - Left ventricle: The cavity size was normal. Wall thickness was normal. Systolic function was normal. The estimated ejection fraction was in the range of 55% to 60%. Wall motion was normal; there were no regional wall motion abnormalities. - Aortic valve: No evidence of vegetation. - Mitral valve: No evidence of vegetation. No evidence of vegetation. - Left atrium: No evidence of thrombus in the atrial cavity or appendage. - Right atrium: No evidence of thrombus in the atrial cavity or appendage. - Tricuspid valve: There was a medium-sized, mobile vegetation. Mild regurgitation. ECHOGENIC MOBILE MASS ATTACHED TO THE VALVE CONSISTENT WITH A VEGETATION - Pulmonic valve: No evidence of vegetation. A/P Problem List: (1) Neck abscess ICD Code: L02.11 Status: Acute (2) Infectious endocarditis ICD Code: I33.0 Status: Acute (3) Bacteremia ICD Code: R78.81 Status: Acute (4) IV drug abuse ICD Code: F19.10 Status: Acute Assessment and Plan Ms. Rock is a 45-year-old female with apparently a history of C-spine fusion several years ago who presented to the emergency department with complaints of neck and back pain, and numbness to her right arm on 05/14/2016. MRI imaging indicated a large prevertebral abscess. Neurosurgery performed I&D on 2016. TTE indicated possible endocarditis which was later confirmed with PETER. Patient is currently on Vancomycin, Gentamicin and Rifampin per ID recommendations. Due to worsening respiratory status, patient was intubated on and extubated on 05/22/2016. - Cervical prevertebral abscess - MRSA bacteremia - Tricuspid endocarditis confirmed with PETER. - Continue Vancomycin, Rifampin per ID recommendations. Gentamicin discontinued on 05/22/2016. - Blood culture growing MRSA. Negative blood culture since 05/20/2016. 6 weeks of Vanc/Rifampin starting 05/20/2016. STOP date would be 07/01/2016. - Neurosurgery, ID following. - Pain medications (updated 05/23/2016). Acetaminophen 650mg Q6hrs PRN Gabapentin 300mg TID Lidocaine patch 5% Daily. Methadone 20mg BID. Oxycodone 10mg Q4hrs PRN Dilaudid IV 0.5 mg Q3hrs PRN for breakthrough. Tizanidine 5mg Q12hrs. Difficult patient to taper pain medications. Will reduce pain medications on 05/29/2016. - Not a surgical candidate per Cardiothoracic surgery. - Acute hypoxic respiratory failure - s/p Extubation. currently on Nasal cannula. - Continue DuoNeb PRN. - Hypokalemia - Continue replacing potassium with KCL PO. - Reviewed CBC, BMP from this morning. Electrolytes corrected. - IV Drug abuse - Patient has received counselling. - Agitation - Continue Seroquel 25mg BID. Our goal is to keep her more calm and reduce pain medications. - Patient likely will need custodial abx. Will consider transferring to the [facility] to continue IV Abx. Full code. SCDs. Problem Qualifiers (1) Infectious endocarditis: West Stone DO May 28, 2016 10:24 am
[2016-05-28 12:00] VITALS: BP 148/88; PULSE 99; RESP 19; TEMP 100.1; O2SAT 95
--- NOTE | 2016-05-28 15:33 | HHI.IDPN ---
Subjective Subjective Remarks fever again in th elast 48 hrs also co severe L spine pain co LLE weakness, new yday sp fall when used commode Antibiotics Vanco IV rif Lines Left SCL line site with no e/o infection. Past Medical History reviewed Allergies: Coded Allergies: Penicillin (Verified Allergy, Intermediate, Rash, 04/04/16) Has taken Keflex without any problem *MDRO Multi-Drug Resistant Organism (Verified Adverse Reaction, Unknown, ) MRSA (blood) - 05/14/16, 05/16/16, 05/18/16; (sputum) - 05/17/16 Uncoded Allergies: chemical allergy (Allergy, Severe, anaphalactic, 09/27/12) Objective . Vital Signs Date Time Temp Pulse Resp B/P Pulse Ox O2 Delivery O2 Flow Rate FiO2 05/28/16 12:00 100.1 99 19 148/88 95 05/28/16 08:00 99.2 92 18 145/85 94 05/28/16 05:50 16 05/28/16 04:00 95.9 94 20 152/87 95 05/28/16 03:21 16 05/28/16 01:27 16 05/28/16 00:00 100.5 102 20 116/74 96 05/27/16 20:59 16 05/27/16 20:00 100.4 111 20 128/92 99 05/27/16 17:16 99.5 99 19 144/79 94 05/27/16 05/27/16 05/28/16 15:00 23:00 07:00 Intake Total 925 ml 720 ml 480 ml Output Total 2000 ml 700 ml 1200 ml Balance -1075 ml 20 ml -720 ml Intake Oral 925 ml 720 ml 480 ml Output Urine Total 2000 ml 700 ml 1200 ml # Bowel Movements 0 1 1 . Laboratory Tests Test 05/28/16 05:00 White Blood Count 10.2 TH/MM3 Red Blood Count 4.07 MIL/MM3 Hemoglobin 8.3 GM/DL Hematocrit 25.7 % Mean Corpuscular Volume 63.1 FL Mean Corpuscular Hemoglobin 20.5 PG Mean Corpuscular Hemoglobin 32.5 % Concent Red Cell Distribution Width 30.8 % Platelet Count 599 TH/MM3 Mean Platelet Volume 8.2 FL Neutrophils (%) (Auto) 67.5 % Lymphocytes (%) (Auto) 22.1 % Monocytes (%) (Auto) 7.9 % Eosinophils (%) (Auto) 2.0 % Basophils (%) (Auto) 0.5 % Neutrophils # (Auto) 6.9 TH/MM3 Lymphocytes # (Auto) 2.3 TH/MM3 Monocytes # (Auto) 0.8 TH/MM3 Eosinophils # (Auto) 0.2 TH/MM3 Basophils # (Auto) 0.1 TH/MM3 CBC Comment AUTO DIFF Differential Comment AUTO DIFF CONFIRMED Platelet Estimate HIGH Platelet Morphology Comment NORMAL Target Cells 1+ Ovalocytes 1+ Acanthocytes OCC Laboratory Tests Test 05/27/16 05/28/16 05:00 05:00 Creatinine 0.53 MG/DL 0.43 MG/DL Estimat Glomerular Filtration 125 ML/MIN 160 ML/MIN Rate Sodium Level 136 MEQ/L Potassium Level 3.7 MEQ/L Chloride Level 98 MEQ/L Carbon Dioxide Level 28.6 MEQ/L Anion Gap 9 MEQ/L Blood Urea Nitrogen 5 MG/DL Random Glucose 86 MG/DL Calcium Level 8.5 MG/DL Imaging Last Impressions Chest X-Ray 05/19/16 0000 Signed Impressions: Service Date/Time: Thursday, May 19, 2016 14:00 - CONCLUSION: 1. Interval improvement with less interstitial edema. 2. Patchy air space disease remains particularly in the right upper lobe and left base. Austin Dang MD FACR Lumbar Spine X-Ray 05/14/162111 Signed Impressions: Service Date/Time: Saturday, May 14, 2016 21:48 - CONCLUSION: Mild disc space narrowing at the L4-L5 level. Saqib Michele MD Cervical Spine MRI 05/14/162111 Signed Impressions: Service Date/Time: Saturday, May 14, 2016 22:07 - CONCLUSION: 1. Suspected complex fluid collection in the prevertebral soft tissues extending from C3 through T1. This could represent an evolving recent hemorrhage versus other causes for complex fluid collections including an abscess. 2. Susceptibility artifact presumably from hardware at the C4 through C6 levels. There is also some susceptibility artifact at the C7-T1 disc space. 3. Mild to moderate central disc protrusion at the C3-C4 level. 4. Mild disc bulge at the C6-C7 level. Saqib Michele MD Cervical Spine CT 05/14/16 0000 Signed Impressions: Service Date/Time: Saturday, May 14, 2016 23:21 - CONCLUSION: 1. Severe prevertebral soft tissue swelling as seen on the MRI examination which may reflect hemorrhage or abscess. No bony destruction is seen to suggest osteomyelitis. No epidural soft tissue mass is evident. Zack Dumont MD Physical Exam CONSTITUTIONAL/GENERAL: Thin built CF. SKIN: No jaundice, rashes, or lesions. Ecchymoses and hyperpigmented lesions on lower extremities. Track mercado on bilateral UEs. HEAD: Atraumatic. Normocephalic. EYES: Pupils equal and round and reactive. Extraocular motions intact. No scleral icterus. No injection or drainage. Fundi not examined. ENT: moist mucosae NECK: Trachea midline. Surgical dressing in place on anterior neck wo drainage CARDIOVASCULAR: Hs audible. No murmur appreciated. RESPIRATORY/CHEST: Symmetric, unlabored respirations. Scattered rhonchi auscultation. GASTROINTESTINAL: Abdomen soft, diffuse tenderness. Mildly to moderately distended GENITOURINARY: Without palpable bladder distension. Enrique catheter in place with clear yellow urine MUSCULOSKELETAL: Extremities without clubbing, cyanosis, 1-2+ soft pitting edema. LYMPHATICS: No palpable cervical or supraclavicular adenopathy. 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 MRSA bacteremia (MRSA MARIA ESTHER in both abscess and blood is 1) Probable endocarditis (Tricuspid vs RV mobile vegetation) acute resp failure: likely sepsis related encephalopathy ? aspiration Aspiration Pneumonia in health care setting. 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 IVDU, active HCV +, HIV - New L spine pain with LLE weakness ? new diskitis new fever Recs cont vancomycin cont Rifampin (hardware infection for synergy for prosthetic infection, LFTs permitting this should be part of final regimen) for the entire duration of vancomycin tx anticipate bed bug exterminator abx tx at least 6 wks from first negative blood clx rechk BC MRI L spine dw pt Dina Carlos MD May 28, 2016 15:33
[2016-05-28] MEDS ORDERED: GADODIAMIDE PF 287 MG/ML 5 ML VIAL (for RAD MRI) IV ONE (17:04)
[2016-05-28] MEDS: LIDOCAINE HCL 5% PATCH TD SCH (17:39)
--- NOTE | 2016-05-28 17:58 | RADRPT ---
EXAM DATE/TIME: 05/28/2016 16:42 [facility] COMPARISON: MRI CERVICAL SPINE W/O CONTRAST, May 14, 2016, 22:07. INDICATIONS : Abscess. CONTRAST: 15 cc Omniscan (gadodiamide) IV MEDICAL HISTORY : Sepsis. SURGICAL HISTORY : Fusion, cervical. ENCOUNTER: Subsequent ACUITY: 2 weeks PAIN SCORE: 10/10 LOCATION: Back. TECHNIQUE: Multiplanar multisequence MRI of the lumbar spine was performed with and without contr ast. FINDINGS: There is a large epidural abscess that is extending from T11 to S2. This is on both th e dorsal and ventral sides of the cord. This is associated with psoas abscess on the right and what looks like fluid collections with enhance ment into the erector spinae bilaterally that probably represents infection as well. SI joints are normal. There is no disc enhancement. There is no marrow change to suggest osteomyelitis. CONCLUSION: Severely abnormal lumbar spine consistent with an epidural abscess, a psoas abscess a nd erector spinae abscess. Austin Dang MD FACR on May 28, 2016 at 17:39 Board Certified Radiologist. This report was verified electronically.
[2016-05-28] MEDS ORDERED: GENTAMICIN SULFATE 80 MG/2 ML VIAL ONE (21:16)
[2016-05-28] MEDS ORDERED: THROMBIN (TOPICAL) 5,000 UNIT VIAL ONE (21:16)
[2016-05-28] MEDS ORDERED: GELFOAM SIZE 100 ONE (21:16)
[2016-05-28] MEDS ORDERED: BUPIVACAINE HCL PF 0.25% 30 ML VIAL ONE (21:16)
[2016-05-28] MEDS ORDERED: LIDOCAINE 1%/EPINEPHrine 1:100,000 SOLN 30 ML VIAL ONE (21:16)
--- NOTE | 2016-05-28 21:39 | HHI.NSPN ---
History Chief Complaint: low back pain Interval History 45-year-old female with history of IV drug abuse presented to the emergency room 05/14/16 with progressive severe neck pain following a fall approximately 1 week prior. History of previous ACDF several years ago. Initial imaging studies revealed a large prevertebral cervical abscess. The patient underwent surgical evacuation of the abscess on 05/15/16. She has been followed by infectious disease. She has been undergoing physical therapy. Patient states for the past 2 or 3 days she has had increasing low back pain and some increased pain and weakness in the proximal left lower extremity. She states that she fell on 05/26/16 while trying to ambulate. No additional pain following a fall. Due to persistent lower back and lower extremity symptoms patient under went an MRI of the lumbar spine today. Exam Results Vital Signs Date Time Temp Pulse Resp B/P Pulse Ox O2 Delivery O2 Flow Rate FiO2 05/28/16 12:00 100.1 99 19 148/88 95 05/24/16 09:15 Nasal Cannula 2.00 Intake and Output 05/27/16 05/27/16 05/28/16 08:00 16:00 00:00 Intake Total 560 ml 925 ml 720 ml Output Total 2350 ml 2000 ml 700 ml Balance -1790 ml -1075 ml 20 ml Physical Examination Awake and alert Speech is clear Exhibits mild anxiety Sensation intact upper extremities and right lower extremity light touch Complains of mild diffuse decreased sensation to light touch left lower extremity Strength is within normal limits major flexion and extension groups in the upper extremities as well as hand intrinsic musculature Motor function within normal limits major flexion and extension groups right lower extremity. She complains of significant pain in the left lateral hip and thigh with proximal left lower extremity motor testing, which is mostly 3/5. Lesser pain with distal left lower extremity motor testing which is mostly 4-5/5 Lab, Micro, Other Results 05/28/2016 MRI lumbar spine with and without contrast images are reviewed by the undersigned. This study reveals a large epidural abscess extending from approximately T11 to S2 level with associated right psoas abscess. Laboratory Tests Test 05/28/16 05:00 White Blood Count 10.2 TH/MM3 Red Blood Count 4.07 MIL/MM3 Hemoglobin 8.3 GM/DL Hematocrit 25.7 % Mean Corpuscular Volume 63.1 FL Mean Corpuscular Hemoglobin 20.5 PG Mean Corpuscular Hemoglobin 32.5 % Concent Red Cell Distribution Width 30.8 % Platelet Count 599 TH/MM3 Mean Platelet Volume 8.2 FL Neutrophils (%) (Auto) 67.5 % Lymphocytes (%) (Auto) 22.1 % Monocytes (%) (Auto) 7.9 % Eosinophils (%) (Auto) 2.0 % Basophils (%) (Auto) 0.5 % Neutrophils # (Auto) 6.9 TH/MM3 Lymphocytes # (Auto) 2.3 TH/MM3 Monocytes # (Auto) 0.8 TH/MM3 Eosinophils # (Auto) 0.2 TH/MM3 Basophils # (Auto) 0.1 TH/MM3 CBC Comment AUTO DIFF Differential Comment AUTO DIFF CONFIRMED Platelet Estimate HIGH Platelet Morphology Comment NORMAL Target Cells 1+ Ovalocytes 1+ Acanthocytes OCC Sodium Level 136 MEQ/L Potassium Level 3.7 MEQ/L Chloride Level 98 MEQ/L Carbon Dioxide Level 28.6 MEQ/L Anion Gap 9 MEQ/L Blood Urea Nitrogen 5 MG/DL Creatinine 0.43 MG/DL Estimat Glomerular Filtration 160 ML/MIN Rate Random Glucose 86 MG/DL Calcium Level 8.5 MG/DL Medical Decision Making Impression and Plan Impression 1. Large lumbar epidural abscess. 2. Status post evacuation of cervical prevertebral abscess with no evidence of recurrence. Plan: Findings were discussed at length with the patient. Discussed with infectious disease Patient is advised to proceed with surgical evacuation of the lumbar epidural abscess today. The procedure, risks, possible complications and been fully explained. All questions been answered Consent to been reviewed with the patient, signed. Aravind Oliver MD May 28, 2016 21:39
[2016-05-28] MEDS: FAMOTIDINE SUSP 40 MG/5 ML NG SCH (22:15)
[2016-05-28] MEDS ORDERED: VANCOMYCIN 500 MG VIAL ONE (22:54)
[2016-05-29] MEDS ORDERED: 1/2 NS + KCL 20 MEQ INJ 1,000 ML IV SCH (00:45)
[2016-05-29] MEDS ORDERED: DO NOT ADM ANY ANTICOAGULANT DRUGS XX PRN (01:00)
[2016-05-29] MEDS ORDERED: fentaNYL CITRATE 250 MCG/5 ML AMP ONE (01:07)
[2016-05-29] MEDS ORDERED: *morphine SULFATE 8 MG/ML PERIprocedure ONLY ONE (01:23)
--- NOTE | 2016-05-29 01:52 | PD.OP ---
Operative Report Date of Surgery: May 29, 2016 Preoperative Diagnosis: (1) Abscess in epidural space of lumbar spine Lumbar epidural abscess Postoperative Diagnosis: (1) Abscess in epidural space of lumbar spine Lumbar epidural abscess Lumbar intradural abscess Procedure: Left L1-2 and left L5-S1 semi-laminectomy, evacuation of epidural and intradural abscess Evacuation left L5 level lumbar paraspinous muscle abscess Anesthesia: Gen. endotracheal Surgeon: Aravind Oliver Manager Spring(s): Jovani Ko Operation and Findings: Findings: Moderate L1-2 and L5-S1 level epidural abscess. Positive intradural abscess noted at the L1-2 greater than L5-S1 level. Significant epidural granulation tissue. Large left L4-5 level paraspinous muscle abscess. Procedure in detail The patient was brought into the operating room and general endotracheal anesthesia induced without difficulty. SIERRA hose and sequential compression devices were placed. The Enrique catheter was in place Lines were established by anesthesia. The patient was positioned on the concentric Sarkis table with the side bolsters and all extremities appropriately padded. Appropriate time-out procedure was performed with all personnel present and in agreement. 1% Xylocaine with epinephrine was used for local infiltration over the incision site which was made just to the left of midline at the L1-2 and L5-S1 level. The incision was carried sharply down to the lumbodorsal fascia which was incised adjacent to the spinous processes. Benedict elevator was used for subperiosteal elevation of paraspinous musculature and fascia away from the lamina and spinous process. The deep self-retaining retractor was placed. The appropriate levels were verified with intraoperative C-arm. Microscope was moved into place and used for the remainder of the procedure including the closure. At each level starting on the left side and then working to the midline , the TPS drill with a 5 mm bone bur was used to remove the inferior two thirds of the more cephalad lamina and the superior aspect of the more caudal lamina along with a moderate amount of the bilateral medial facet, taking care not to disrupt the integrity of the facet or pars intra-articularis. The ligamentum flavum at each level was elevated away from the thecal sac with the thin ligament dissector and resected with the 15 blade knife and the Kerrison rongeur out to the level of the deep lateral recess to completely decompress the thecal sac and exiting nerve roots. The exiting nerve roots were followed to the level of the medial pedicle. At the L1-2 level, there was a moderate amount of epidural abscess primarily ventral to the thecal sac. The purulent material was evacuated along with some granulation tissue. A small red rubber catheter was passed into the abscess cavity and copiously irrigated with antibiotic irrigation. The thecal sac was carefully inspected and there was significant opacity to the thecal sac with what appeared to be loculated abscess within the thecal sac. The dura was pierced with a 22 -gauge needle and an area of loculated epidural abscess was aspirated. The dura was further opened with the small Rhoton dissectors and further abscess cavity evacuated with no active CSF leakage encountered. The small dural opening was covered with a thin piece of Gelfoam and thrombin and a clot allowed to develop. At the L5-S1 level, there was only a small amount of abscess noted at the epidural space and this was carefully evacuated and copiously irrigated with antibiotic solution. There was again noted to be some abscess within the thecal sac. A small opening was made with the 11 blade knife and a moderate amount of intradural abscess was evacuated. The small dural opening was closed with 6-0 Prolene. No CSF leakage was encountered. The nerve roots appeared well decompressed at the end of the procedure. No spinal fluid leakage was noted at the end of the procedure. The disc and annulus at each level was visualized to make sure that there was no significant disc displacement or herniation. Bleeding was carefully controlled with the bipolar forceps. The closure was performed with 0 Vicryl interrupted for the deep and superficial fascia, with 3-0 Vicryl interrupted subcutaneous closure, and 4-0 Vicryl running subcuticular closure. A dressing of sterile Mastisol, Steri- Strips, and Primapore was placed. The patient was taken to recovery room in stable condition. All counts were correct at the end of the case. Estimated blood loss was 25 cc. No specimen was sent to pathology Specimens of the epidural and lumbar paraspinous muscle abscess were sent to microbiology for routine cultures. Aravind Oliver MD May 29, 2016 01:52
[2016-05-29 02:10] VITALS: BP 116/66; PULSE 104; RESP 18; TEMP 99; O2SAT 100
[2016-05-29] MEDS: oxyCODONE HCL ORAL CONC 20 MG/ML SYRINGE PO PRN ×5 (02:25→18:58)
[2016-05-29] MEDS: SODIUM CHLORIDE 0.9% FLUSH 5 ML FLUSH IVF SCH ×3 (02:27→21:14)
[2016-05-29] MEDS: HYDROmorphone HCL PF 1 MG/ML VIAL IV PRN ×6 (03:41→23:13)
[2016-05-29] MEDS: CHLORHEXIDINE GLUCONATE 2 % 1 PACK (2 CLOTHS) TOP SCH (04:00)
[2016-05-29] MEDS: REMOVE OLD PATCH TD SCH (05:28)
[2016-05-29] MEDS: VANCOMYCIN INJ 1,500 MG in SODIUM CHLORID 0.9% 500 ML INJ 500 ML IV SCH ×3 (05:28→21:14)
[2016-05-29] MEDS: CHLORHEXIDINE 0.12% (ORAL KIT) 15 ML CUP MT SCH ×2 (07:38→20:00)
[2016-05-29] MEDS: BENEPROTEIN POWDER 1 PACK G-TUBE SCH ×3 (07:39→16:27)
[2016-05-29 08:00] VITALS: BP 108/57; PULSE 98; RESP 20; TEMP 100.1; O2SAT 100
[2016-05-29] MEDS: METHADONE HCL 10 MG/10 ML ORAL SOLUTION PO/TUBE SCH ×2 (08:43→21:15)
[2016-05-29] MEDS: GABAPENTIN 300 MG CAP PO SCH ×3 (08:43→16:18)
[2016-05-29] MEDS: LACTOBACILLUS ACIDOPHILUS TAB PO SCH ×3 (08:43→16:18)
[2016-05-29] MEDS: MULTIVITAMIN HEMATINIC THERAPEUTIC TAB OG SCH ×2 (08:43→21:13)
[2016-05-29] MEDS: TAMSULOSIN HCL 0.4 MG CAP PO SCH (08:43)
[2016-05-29] MEDS: RIFAMPIN 150 MG CAP PO SCH ×2 (08:43→21:13)
[2016-05-29] MEDS: CETIRIZINE HCL 10 MG TAB PO SCH (08:44)
[2016-05-29] MEDS: QUEtiapine FUMARATE 25 MG TAB PO SCH ×2 (08:44→21:13)
[2016-05-29] MEDS: DOCUSATE SODIUM 50 MG/SENNA 8.6 MG TAB PO SCH ×2 (08:46→21:13)
--- NOTE | 2016-05-29 09:59 | HHI.PR ---
Subjective Remarks Follow up for neck abscess s/p retropharyngeal abscess drainage. Patient underwent I&D, semi-laminectomy left L1-2, L5-S1 last night. Currently, she is in a lot of pain. No fever, chills. Objective Vitals Vital Signs Date Time Temp Pulse Resp B/P Pulse Ox O2 Delivery O2 Flow Rate FiO2 05/29/16 08:00 100.1 98 20 108/57 100 05/29/16 02:10 99.0 104 18 116/66 100 05/29/16 02:00 97 16 113/64 98 Nasal Cannula 3 05/29/16 01:45 93 14 113/67 98 Nasal Cannula 3 05/29/16 01:30 93 16 117/65 98 Nasal Cannula 3 05/29/16 00:56 97.7 94 13 101/53 99 Nasal Cannula 3 05/28/16 12:00 100.1 99 19 148/88 95 I/O 05/28/16 05/28/16 05/28/16 05/29/16 05/29/16 05/29/16 07:00 15:00 23:00 07:00 15:00 23:00 Intake Total 480 ml 1250 ml 1183 ml Output Total 1200 ml 2000 ml 325 ml Balance -720 ml -750 ml 858 ml Intake Oral 480 ml 750 ml 240 ml IV Total 500 ml 343 ml Other 600 ml Output Urine Total 1200 ml 2000 ml 200 ml Estimated Blood Loss 25 ml Other 100 ml # Voids 0 # Bowel Movements 1 2 Result Diagram: 05/28/16 0500 05/28/16 0500 Imaging Last Impressions Chest X-Ray 05/19/16 0000 Signed Impressions: Service Date/Time: Thursday, May 19, 2016 14:00 - CONCLUSION: 1. Interval improvement with less interstitial edema. 2. Patchy air space disease remains particularly in the right upper lobe and left base. Austin Dang MD FACR Lumbar Spine X-Ray 05/14/162111 Signed Impressions: Service Date/Time: Saturday, May 14, 2016 21:48 - CONCLUSION: Mild disc space narrowing at the L4-L5 level. Saqib Michele MD Cervical Spine MRI 05/14/162111 Signed Impressions: Service Date/Time: Saturday, May 14, 2016 22:07 - CONCLUSION: 1. Suspected complex fluid collection in the prevertebral soft tissues extending from C3 through T1. This could represent an evolving recent hemorrhage versus other causes for complex fluid collections including an abscess. 2. Susceptibility artifact presumably from hardware at the C4 through C6 levels. There is also some susceptibility artifact at the C7-T1 disc space. 3. Mild to moderate central disc protrusion at the C3-C4 level. 4. Mild disc bulge at the C6-C7 level. Saqib Michele MD Cervical Spine CT 05/14/16 0000 Signed Impressions: Service Date/Time: Saturday, May 14, 2016 23:21 - CONCLUSION: 1. Severe prevertebral soft tissue swelling as seen on the MRI examination which may reflect hemorrhage or abscess. No bony destruction is seen to suggest osteomyelitis. No epidural soft tissue mass is evident. Zack Dumont MD Objective Remarks GENERAL: Alert, NAD. SKIN: Warm and dry. HEAD: Normocephalic. EYES: No scleral icterus. No injection or drainage. NECK: Supple, trachea midline. No JVD or lymphadenopathy. CARDIOVASCULAR: Regular rate and rhythm without murmurs, gallops, or rubs. RESPIRATORY: Breath sounds equal bilaterally. No accessory muscle use. GASTROINTESTINAL: Abdomen somewhat firm, non-tender, nondistended. MUSCULOSKELETAL: No cyanosis, or edema. BACK: Nontender without obvious deformity. No CVA tenderness. Procedures Transthoracic Echo 05/17/2016 - Left ventricle: The cavity size was normal. Wall thickness was normal. Systolic function was normal. The estimated ejection fraction was in the range of 55% to 60%. Wall motion was normal; there were no regional wall motion abnormalities. Doppler parameters are consistent with abnormal left ventricular relaxation (grade 1 diastolic dysfunction). - Right ventricle: Systolic pressure was increased. - Tricuspid valve: Mild regurgitation. Impressions: Mobile structure at the level of right ventricular septal area VS tricuspid valve. Possible vegetation. PETER strongly recommended Recommendations: Transesophageal echocardiography should be performed in order to exclude ticuspid valve vegetation Transesophageal echocardiogram - Left ventricle: The cavity size was normal. Wall thickness was normal. Systolic function was normal. The estimated ejection fraction was in the range of 55% to 60%. Wall motion was normal; there were no regional wall motion abnormalities. - Aortic valve: No evidence of vegetation. - Mitral valve: No evidence of vegetation. No evidence of vegetation. - Left atrium: No evidence of thrombus in the atrial cavity or appendage. - Right atrium: No evidence of thrombus in the atrial cavity or appendage. - Tricuspid valve: There was a medium-sized, mobile vegetation. Mild regurgitation. ECHOGENIC MOBILE MASS ATTACHED TO THE VALVE CONSISTENT WITH A VEGETATION - Pulmonic valve: No evidence of vegetation. 05/15/2016 Evacuation prevertebral - retropharyngeal neck abscess 05/29/2016 Left L1-2 and left L5-S1 semi-laminectomy, evacuation of epidural and intradural abscess Evacuation left L5 level lumbar paraspinous muscle abscess A/P Problem List: (1) Neck abscess ICD Code: L02.11 Status: Acute (2) Infectious endocarditis ICD Code: I33.0 Status: Acute (3) Bacteremia ICD Code: R78.81 Status: Acute (4) IV drug abuse ICD Code: F19.10 Status: Acute Assessment and Plan Ms. Rock is a 45-year-old female with apparently a history of C-spine fusion several years ago who presented to the emergency department with complaints of neck and back pain, and numbness to her right arm on 05/14/2016. MRI imaging indicated a large prevertebral abscess. Neurosurgery performed I&D on 2016. TTE indicated possible endocarditis which was later confirmed with PETER. Patient is currently on Vancomycin, Gentamicin and Rifampin per ID recommendations. Due to worsening respiratory status, patient was intubated on and extubated on 05/22/2016. - Cervical prevertebral abscess I&D on 05/15/2016. - Lumbar epidural abscess - Lumbar intradural abscess s/p I&D 05/29/2016. 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 - Continue Vancomycin, Rifampin per ID recommendations. Gentamicin discontinued on 05/22/2016. - Blood culture growing MRSA. Negative blood culture since 05/20/2016. 6 weeks of Vanc/Rifampin starting 05/20/2016. STOP date would be 07/01/2016. - Neurosurgery, ID following. - Pain medications (updated 05/23/2016). Acetaminophen 650mg Q6hrs PRN Gabapentin 300mg TID Lidocaine patch 5% Daily. Methadone 20mg BID. Oxycodone 10mg Q4hrs PRN Dilaudid IV 1.5 mg Q3hrs PRN for breakthrough. Tizanidine 5mg Q12hrs. - Not a surgical candidate per Cardiothoracic surgery. - Acute hypoxic respiratory failure - s/p Extubation. currently on Nasal cannula. - Continue DuoNeb PRN. - Hypokalemia - Corrected. - Continue replacing potassium with KCL PO. - IV Drug abuse - Patient has received counselling. - Agitation - Continue Seroquel 25mg BID. Our goal is to keep her more calm and reduce pain medications. Full code. SCDs. Discharge: Continue IV abx and other supportive care. [facility]. Discussed with Dr. Oliver who agrees with this discharge plan. Problem Qualifiers (1) Infectious endocarditis: [place] Stone DO May 29, 2016 9:59 am
[2016-05-29 12:00] VITALS: BP 110/57; PULSE 101; RESP 18; TEMP 99.2; O2SAT 95
[2016-05-29 12:50] VITALS: O2SAT 94
[2016-05-29] MEDS: metroNIDAZOLE 500 MG INJ 100 ML IV SCH ×2 (13:46→21:14)
[2016-05-29] MEDS: CEFEPIME INJ 2,000 MG in SODIUM CHLORIDE 0.9% INJ 100 ML IV SCH ×2 (13:46→21:15)
[2016-05-29] MEDS ORDERED: FLUCONAZOLE 100 MG TAB PO ONE (16:00)
[2016-05-29] MEDS ORDERED: PILL SPLITTER OTHER PRN (16:00)
[2016-05-29] MEDS: LIDOCAINE HCL 5% PATCH TD SCH (16:28)
[2016-05-29 18:00] VITALS: BP 126/66; PULSE 108; RESP 19; TEMP 100.6; O2SAT 95
[2016-05-29 20:00] VITALS: BP 132/67; PULSE 112; RESP 22; TEMP 100.7; O2SAT 98
[2016-05-29] MEDS: FAMOTIDINE SUSP 40 MG/5 ML NG SCH (21:13)
--- NOTE | 2016-05-29 21:23 | HHI.NSPN ---
History Chief Complaint: low back pain Interval History 45-year-old female with history of IV drug abuse presented to the emergency room 05/14/16 with progressive severe neck pain following a fall approximately 1 week prior. History of previous ACDF several years ago. Initial imaging studies revealed a large prevertebral cervical abscess. The patient underwent surgical evacuation of the abscess on 05/15/16. She has been followed by infectious disease. She has been undergoing physical therapy. Patient states for the past 2 or 3 days she has had increasing low back pain and some increased pain and weakness in the proximal left lower extremity. She states that she fell on 05/26/16 while trying to ambulate. No additional pain following a fall. Due to persistent lower back and lower extremity symptoms patient under went an MRI of the lumbar spine 05/28/2016. 05/29/2016: L1-2 and L5-S1 laminectomy evacuation of epidural and intradural abscess. Exam Results Vital Signs Date Time Temp Pulse Resp B/P Pulse Ox O2 Delivery O2 Flow Rate FiO2 05/29/16 20:00 100.7 112 22 132/67 98 05/29/16 02:00 Nasal Cannula 3 Intake and Output 05/28/16 05/28/16 05/29/16 08:00 16:00 00:00 Intake Total 980 ml 750 ml 0 ml Output Total 1200 ml 2000 ml Balance -220 ml -1250 ml 0 ml Physical Examination Awake and alert Speech is clear Lumbar dressings dry and intact Sensation intact upper extremities and right lower extremity light touch Complains of mild diffuse decreased sensation to light touch left lower extremity Strength is within normal limits major flexion and extension groups in the upper extremities as well as hand intrinsic musculature Motor function within normal limits major flexion and extension groups right lower extremity. She complains of moderate pain in the left lateral hip and thigh with proximal left lower extremity motor testing, which is mostly 4/5 Lesser pain with distal left lower extremity motor testing which is mostly 4-5/5 Lab, Micro, Other Results Laboratory Tests Test 05/28/16 22:30 Blood Type A POSITIVE Antibody Screen NEGATIVE Crossmatch Leukocyte-Reduced Red Blood Cells Blood Bank Comment Medical Decision Making Impression and Plan Impression 1. Large lumbar epidural/intradural abscess. 2. Status post evacuation of cervical prevertebral abscess with no evidence of recurrence. Stable postop neurologic function Plan: Continue physical therapy. Patient continues to follow with infectious disease Mobilize out of bed as tolerated Aravind Oliver MD May 29, 2016 21:23
[2016-05-29] MEDS: ACETAMINOPHEN 650 MG/20.3 ML UDC PO PRN (21:30)
--- NOTE | 2016-05-29 23:10 | HHI.IDPN ---
Subjective Subjective Remarks Delayed entry - pt was seen earlier today Events noted MRI yday showed large epidural abscess, pt emergently went for surgery co back pain , LLE strengh improved + low grade fever Antibiotics Vanco IV rif Lines Left SCL line site with no e/o infection. Past Medical History reviewed Allergies: Coded Allergies: Penicillin (Verified Allergy, Intermediate, Rash, 04/04/16) Has taken Keflex without any problem *MDRO Multi-Drug Resistant Organism (Verified Adverse Reaction, Unknown, ) MRSA (blood) - 05/14/16, 05/16/16, 05/18/16; (sputum) - 05/17/16 Uncoded Allergies: chemical allergy (Allergy, Severe, anaphalactic, 09/27/12) Objective . Vital Signs Date Time Temp Pulse Resp B/P Pulse Ox O2 Delivery O2 Flow Rate FiO2 05/29/16 20:00 100.7 112 22 132/67 98 05/29/16 18:00 100.6 108 19 126/66 95 05/29/16 12:50 94 05/29/16 12:00 99.2 101 18 110/57 95 05/29/16 08:00 100.1 98 20 108/57 100 05/29/16 02:10 99.0 104 18 116/66 100 05/29/16 02:00 97 16 113/64 98 Nasal Cannula 3 05/29/16 01:45 93 14 113/67 98 Nasal Cannula 3 05/29/16 01:30 93 16 117/65 98 Nasal Cannula 3 05/29/16 00:56 97.7 94 13 101/53 99 Nasal Cannula 3 05/28/16 05/28/16 05/29/16 15:00 23:00 07:00 Intake Total 1250 ml 1183 ml Output Total 2000 ml 325 ml Balance -750 ml 858 ml Intake Oral 750 ml 240 ml IV Total 500 ml 343 ml Other 600 ml Output Urine Total 2000 ml 200 ml Estimated Blood Loss 25 ml Other 100 ml # Voids 0 # Bowel Movements 2 . Laboratory Tests Test 05/28/16 05:00 White Blood Count 10.2 TH/MM3 Red Blood Count 4.07 MIL/MM3 Hemoglobin 8.3 GM/DL Hematocrit 25.7 % Mean Corpuscular Volume 63.1 FL Mean Corpuscular Hemoglobin 20.5 PG Mean Corpuscular Hemoglobin 32.5 % Concent Red Cell Distribution Width 30.8 % Platelet Count 599 TH/MM3 Mean Platelet Volume 8.2 FL Neutrophils (%) (Auto) 67.5 % Lymphocytes (%) (Auto) 22.1 % Monocytes (%) (Auto) 7.9 % Eosinophils (%) (Auto) 2.0 % Basophils (%) (Auto) 0.5 % Neutrophils # (Auto) 6.9 TH/MM3 Lymphocytes # (Auto) 2.3 TH/MM3 Monocytes # (Auto) 0.8 TH/MM3 Eosinophils # (Auto) 0.2 TH/MM3 Basophils # (Auto) 0.1 TH/MM3 CBC Comment AUTO DIFF Differential Comment AUTO DIFF CONFIRMED Platelet Estimate HIGH Platelet Morphology Comment NORMAL Target Cells 1+ Ovalocytes 1+ Acanthocytes OCC Laboratory Tests Test 05/28/16 05:00 Sodium Level 136 MEQ/L Potassium Level 3.7 MEQ/L Chloride Level 98 MEQ/L Carbon Dioxide Level 28.6 MEQ/L Anion Gap 9 MEQ/L Blood Urea Nitrogen 5 MG/DL Creatinine 0.43 MG/DL Estimat Glomerular Filtration 160 ML/MIN Rate Random Glucose 86 MG/DL Calcium Level 8.5 MG/DL Microbiology Date/Time Procedure Status Source Growth 05/28/16 23:45 Gram Stain - Final Resulted Abscess Back 05/28/16 23:45 Wound Culture Resulted Abscess Back Pending 05/28/16 23:45 Fungal Smear - Final Resulted Abscess Back NO FUNGAL ELEMENTS SEEN. 05/28/16 23:45 Fungal Culture Resulted Abscess Back Pending 05/28/16 23:45 Acid Fast Stain Received Abscess Back Pending 05/28/16 23:45 Mycobacterial Culture Received Abscess Back Pending 05/28/16 23:55 Gram Stain - Final Resulted Abscess Back 05/28/16 23:55 Wound Culture Resulted Abscess Back Pending 05/28/16 23:55 Acid Fast Stain Received Abscess Back Pending 05/28/16 23:55 Mycobacterial Culture Received Abscess Back Pending 05/28/16 23:55 Fungal Smear - Final Resulted Abscess Back NO FUNGAL ELEMENTS SEEN. 05/28/16 23:55 Fungal Culture Resulted Abscess Back Pending 05/29/16 05:50 Aerobic Blood Culture Received Blood Peripheral Pending 05/29/16 05:50 Anaerobic Blood Culture Received Blood Peripheral Pending 05/29/16 05:57 Aerobic Blood Culture Received Blood Peripheral Pending 05/29/16 05:57 Anaerobic Blood Culture Received Blood Peripheral Pending Imaging Last Impressions Chest X-Ray 05/19/16 0000 Signed Impressions: Service Date/Time: Thursday, May 19, 2016 14:00 - CONCLUSION: 1. Interval improvement with less interstitial edema. 2. Patchy air space disease remains particularly in the right upper lobe and left base. Austin Dang MD FACR Lumbar Spine X-Ray 05/14/162111 Signed Impressions: Service Date/Time: Saturday, May 14, 2016 21:48 - CONCLUSION: Mild disc space narrowing at the L4-L5 level. Saqib Michele MD Cervical Spine MRI 05/14/162111 Signed Impressions: Service Date/Time: Saturday, May 14, 2016 22:07 - CONCLUSION: 1. Suspected complex fluid collection in the prevertebral soft tissues extending from C3 through T1. This could represent an evolving recent hemorrhage versus other causes for complex fluid collections including an abscess. 2. Susceptibility artifact presumably from hardware at the C4 through C6 levels. There is also some susceptibility artifact at the C7-T1 disc space. 3. Mild to moderate central disc protrusion at the C3-C4 level. 4. Mild disc bulge at the C6-C7 level. Saqib Michele MD Cervical Spine CT 05/14/16 0000 Signed Impressions: Service Date/Time: Saturday, May 14, 2016 23:21 - CONCLUSION: 1. Severe prevertebral soft tissue swelling as seen on the MRI examination which may reflect hemorrhage or abscess. No bony destruction is seen to suggest osteomyelitis. No epidural soft tissue mass is evident. Zack Dumont MD Physical Exam CONSTITUTIONAL/GENERAL: Thin built CF. In distress 2/2 pain SKIN: No jaundice, rashes, or lesions. Ecchymoses and hyperpigmented lesions on lower extremities. Track mercado on bilateral UEs. HEAD: Atraumatic. Normocephalic. EYES: Pupils equal and round and reactive. Extraocular motions intact. No scleral icterus. No injection or drainage. Fundi not examined. ENT: moist mucosae NECK: Trachea midline. Surgical dressing in place on anterior neck wo drainage CARDIOVASCULAR: Hs audible. No murmur appreciated. RESPIRATORY/CHEST: Symmetric, unlabored respirations. Scattered rhonchi auscultation. GASTROINTESTINAL: Abdomen soft, diffuse tenderness. Mildly to moderately distended GENITOURINARY: Without palpable bladder distension. Enrique catheter in place with clear yellow urine MUSCULOSKELETAL: Extremities without clubbing, cyanosis, no edema. BACK: dressing in place intact LYMPHATICS: No palpable cervical or supraclavicular adenopathy. NEUROLOGICAL: awkae alert, normal speech, follows commands Pt strengh in LLE diminished 3-4/5 PSYCHIATRIC: tearful Assessment & Plan Remarks New issue : pt has a large epidural abscess L spine - sp emergent evacuation - clx show mixed kimmy on Gstain - cefepime, flagyl added MRSA tricuspid valve endocarditis with large TV vegetations and multiple pulmonary emboli and acute VDRF CT surgery rec'd against surg intervention MRSA C Spine abscess with hardware in place. MRSA bacteremia (MRSA MARIA ESTHER in both abscess and blood is 1) Probable endocarditis (Tricuspid vs RV mobile vegetation) acute resp failure: likely sepsis related encephalopathy ? aspiration Aspiration Pneumonia in health care setting. Acute metabolic encephalopathy: sepsis related, [employer]MB[employer] REPA[employer]ER infection. IVDU, active HCV +, HIV - New L spine pain with LLE weakness ? 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
[2016-05-30] VITALS: BP 102/55; PULSE 92; RESP 18; TEMP 98.5; O2SAT 94
[2016-05-30] MEDS: oxyCODONE HCL ORAL CONC 20 MG/ML SYRINGE PO PRN ×4 (02:15→17:29)
[2016-05-30] MEDS: metroNIDAZOLE 500 MG INJ 100 ML IV SCH ×3 (03:47→20:33)
[2016-05-30] MEDS: VANCOMYCIN INJ 1,500 MG in SODIUM CHLORID 0.9% 500 ML INJ 500 ML IV SCH (03:47)
[2016-05-30] MEDS: CEFEPIME INJ 2,000 MG in SODIUM CHLORIDE 0.9% INJ 100 ML IV SCH ×3 (03:47→20:34)
[2016-05-30] MEDS: HYDROmorphone HCL PF 1 MG/ML VIAL IV PRN ×4 (03:49→18:12)
[2016-05-30] MEDS: CHLORHEXIDINE GLUCONATE 2 % 1 PACK (2 CLOTHS) TOP SCH (04:00)
[2016-05-30] MEDS: REMOVE OLD PATCH TD SCH (06:00)
[2016-05-30 08:00] VITALS: BP 115/65; PULSE 101; RESP 20; TEMP 99.6; O2SAT 96
[2016-05-30] MEDS: CHLORHEXIDINE 0.12% (ORAL KIT) 15 ML CUP MT SCH ×2 (08:00→20:00)
[2016-05-30] MEDS: RIFAMPIN 150 MG CAP PO SCH ×2 (08:01→20:33)
[2016-05-30] MEDS: DOCUSATE SODIUM 50 MG/SENNA 8.6 MG TAB PO SCH ×3 (08:01→20:37)
[2016-05-30] MEDS: METHADONE HCL 10 MG/10 ML ORAL SOLUTION PO/TUBE SCH ×2 (08:01→20:34)
[2016-05-30] MEDS: MULTIVITAMIN HEMATINIC THERAPEUTIC TAB OG SCH ×2 (08:02→20:33)
[2016-05-30] MEDS: QUEtiapine FUMARATE 25 MG TAB PO SCH ×2 (08:02→20:33)
[2016-05-30] MEDS: CETIRIZINE HCL 10 MG TAB PO SCH (08:02)
[2016-05-30] MEDS: TAMSULOSIN HCL 0.4 MG CAP PO SCH (08:02)
[2016-05-30] MEDS: GABAPENTIN 300 MG CAP PO SCH ×3 (08:02→17:29)
[2016-05-30] MEDS: LACTOBACILLUS ACIDOPHILUS TAB PO SCH ×3 (08:02→17:29)
[2016-05-30] MEDS: BENEPROTEIN POWDER 1 PACK G-TUBE SCH ×3 (08:05→17:18)
[2016-05-30] MEDS: SODIUM CHLORIDE 0.9% FLUSH 5 ML FLUSH IVF SCH ×2 (08:05→20:34)
--- NOTE | 2016-05-30 11:54 | HHI.PR ---
Subjective Remarks Follow up for neck abscess s/p retropharyngeal abscess drainage and epidural/ intradural abscess. Ms. Rock is doing well. Resting in bed. No acute concerns. Denies any fever, chills. Objective Vitals Vital Signs Date Time Temp Pulse Resp B/P Pulse Ox O2 Delivery O2 Flow Rate FiO2 05/30/16 11:10 18 05/30/16 09:01 18 05/30/16 08:10 18 05/30/16 08:00 99.6 101 20 115/65 96 05/30/16 00:00 98.5 92 18 102/55 94 05/29/16 20:00 100.7 112 22 132/67 98 05/29/16 18:00 100.6 108 19 126/66 95 05/29/16 12:50 94 05/29/16 12:00 99.2 101 18 110/57 95 I/O 05/29/16 05/29/16 05/29/16 05/30/16 05/30/16 05/30/16 07:00 15:00 23:00 07:00 15:00 23:00 Intake Total 1183 ml 960 ml 980 ml 1180 ml Output Total 325 ml 1000 ml 800 ml 1700 ml Balance 858 ml -40 ml 180 ml -520 ml Intake Oral 240 ml 960 ml 480 ml 480 ml IV Total 343 ml 500 ml 700 ml Other 600 ml Output Urine Total 200 ml 1000 ml 800 ml 1700 ml Estimated Blood Loss 25 ml Other 100 ml # Voids 0 # Bowel Movements 0 0 0 Result Diagram: 05/28/16 0500 05/30/16 0500 Imaging Last Impressions Lumbar Spine MRI 05/28/16 0000 Signed Impressions: Service Date/Time: Saturday, May 28, 2016 16:42 - CONCLUSION: Severely abnormal lumbar spine consistent with an epidural abscess, a psoas abscess and erector spinae abscess. Austin Dang MD FACR Chest X-Ray 05/19/16 0000 Signed Impressions: Service Date/Time: Thursday, May 19, 2016 14:00 - CONCLUSION: 1. Interval improvement with less interstitial edema. 2. Patchy air space disease remains particularly in the right upper lobe and left base. Austin Dang MD FACR Lumbar Spine X-Ray 05/14/162 Signed Impressions: Service Date/Time: Saturday, May 14, 2016 21:48 - CONCLUSION: Mild disc space narrowing at the L4-L5 level. Saqib Michele MD Cervical Spine MRI 05/14/162 Signed Impressions: Service Date/Time: Saturday, May 14, 2016 22:07 - CONCLUSION: 1. Suspected complex fluid collection in the prevertebral soft tissues extending from C3 through T1. This could represent an evolving recent hemorrhage versus other causes for complex fluid collections including an abscess. 2. Susceptibility artifact presumably from hardware at the C4 through C6 levels. There is also some susceptibility artifact at the C7-T1 disc space. 3. Mild to moderate central disc protrusion at the C3-C4 level. 4. Mild disc bulge at the C6-C7 level. Saqib Michele MD Cervical Spine CT 05/14/16 0000 Signed Impressions: Service Date/Time: Saturday, May 14, 2016 23:21 - CONCLUSION: 1. Severe prevertebral soft tissue swelling as seen on the MRI examination which may reflect hemorrhage or abscess. No bony destruction is seen to suggest osteomyelitis. No epidural soft tissue mass is evident. Zack Dumont MD Objective Remarks GENERAL: Alert, NAD. SKIN: Warm and dry. HEAD: Normocephalic. EYES: No scleral icterus. No injection or drainage. NECK: Supple, trachea midline. No JVD or lymphadenopathy. CARDIOVASCULAR: Regular rate and rhythm without murmurs, gallops, or rubs. RESPIRATORY: Breath sounds equal bilaterally. No accessory muscle use. GASTROINTESTINAL: Abdomen somewhat firm, non-tender, nondistended. MUSCULOSKELETAL: No cyanosis, or edema. BACK: Nontender without obvious deformity. No CVA tenderness. Procedures Transthoracic Echo 05/17/2016 - Left ventricle: The cavity size was normal. Wall thickness was normal. Systolic function was normal. The estimated ejection fraction was in the range of 55% to 60%. Wall motion was normal; there were no regional wall motion abnormalities. Doppler parameters are consistent with abnormal left ventricular relaxation (grade 1 diastolic dysfunction). - Right ventricle: Systolic pressure was increased. - Tricuspid valve: Mild regurgitation. Impressions: Mobile structure at the level of right ventricular septal area VS tricuspid valve. Possible vegetation. PETER strongly recommended Recommendations: Transesophageal echocardiography should be performed in order to exclude ticuspid valve vegetation Transesophageal echocardiogram - Left ventricle: The cavity size was normal. Wall thickness was normal. Systolic function was normal. The estimated ejection fraction was in the range of 55% to 60%. Wall motion was normal; there were no regional wall motion abnormalities. - Aortic valve: No evidence of vegetation. - Mitral valve: No evidence of vegetation. No evidence of vegetation. - Left atrium: No evidence of thrombus in the atrial cavity or appendage. - Right atrium: No evidence of thrombus in the atrial cavity or appendage. - Tricuspid valve: There was a medium-sized, mobile vegetation. Mild regurgitation. ECHOGENIC MOBILE MASS ATTACHED TO THE VALVE CONSISTENT WITH A VEGETATION - Pulmonic valve: No evidence of vegetation. 05/15/2016 Evacuation prevertebral - retropharyngeal neck abscess 05/29/2016 Left L1-2 and left L5-S1 semi-laminectomy, evacuation of epidural and intradural abscess Evacuation left L5 level lumbar paraspinous muscle abscess A/P Problem List: (1) Neck abscess ICD Code: L02.11 Status: Acute (2) Infectious endocarditis ICD Code: I33.0 Status: Acute (3) Bacteremia ICD Code: R78.81 Status: Acute (4) IV drug abuse ICD Code: F19.10 Status: Acute Assessment and Plan Ms. Rock is a 45-year-old female with apparently a history of C-spine fusion several years ago who presented to the emergency department with complaints of neck and back pain, and numbness to her right arm on 05/14/2016. MRI imaging indicated a large prevertebral abscess. Neurosurgery performed I&D on 2016. TTE indicated possible endocarditis which was later confirmed with PETER. Patient is currently on Vancomycin, Gentamicin and Rifampin per ID recommendations. Due to worsening respiratory status, patient was intubated on and extubated on 05/22/2016. - Cervical prevertebral abscess I&D on 05/15/2016. - Lumbar epidural abscess - Lumbar intradural abscess s/p I&D 05/29/2016. 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 - Continue Vancomycin, Rifampin per ID recommendations. Gentamicin discontinued on 05/22/2016. - Blood culture growing MRSA. Negative blood culture since 05/20/2016. 6 weeks of Vanc/Rifampin starting 05/20/2016. STOP date would be 07/01/2016. - Neurosurgery, ID following. - Pain medications (updated 05/23/2016). Acetaminophen 650mg Q6hrs PRN Gabapentin 300mg TID Lidocaine patch 5% Daily. Methadone 20mg BID. Oxycodone 10mg Q4hrs PRN Dilaudid IV 1.5 mg Q3hrs PRN for breakthrough. Tizanidine 5mg Q12hrs. - Not a surgical candidate per Cardiothoracic surgery. - Acute hypoxic respiratory failure - s/p Extubation. currently on Nasal cannula. - Continue DuoNeb PRN. - Hypokalemia - Corrected. - Continue replacing potassium with KCL PO. - IV Drug abuse - Patient has received counselling. - Agitation - Continue Seroquel 25mg BID. Our goal is to keep her more calm and reduce pain medications. Full code. SCDs. Discharge: Continue IV abx and other supportive care. Possible discharge to [facility] on 06/01/2016. Discussed with Dr. Oliver on 05/29/2016 who agrees with this discharge plan. Problem Qualifiers (1) Infectious endocarditis: West Stone DO May 30, 2016 11:54
[2016-05-30 12:00] VITALS: BP 114/60; PULSE 96; RESP 18; TEMP 98.9; O2SAT 98
[2016-05-30] MEDS: VANCOMYCIN INJ 1,250 MG in SODIUM CHLOR 0.9% 250 ML INJ 250 ML IV SCH ×2 (12:16→20:41)
--- NOTE | 2016-05-30 15:08 | HHI.IDPN ---
Subjective Subjective Remarks no fever Much improved LLE strengh co 10/ back pain + some headache as well Antibiotics Vanco IV rif Lines Left SCL line site with no e/o infection. Past Medical History reviewed Allergies: Coded Allergies: Penicillin (Verified Allergy, Intermediate, Rash, 04/04/16) Has taken Keflex without any problem *MDRO Multi-Drug Resistant Organism (Verified Adverse Reaction, Unknown, ) MRSA (blood) - 05/14/16, 05/16/16, 05/18/16; (sputum) - 05/17/16 Uncoded Allergies: chemical allergy (Allergy, Severe, anaphalactic, 09/27/12) Objective . Vital Signs Date Time Temp Pulse Resp B/P Pulse Ox O2 Delivery O2 Flow Rate FiO2 05/30/16 14:21 18 05/30/16 12:00 98.9 96 18 114/60 98 05/30/16 11:10 18 05/30/16 09:01 18 05/30/16 08:00 99.6 101 20 115/65 96 05/30/16 00:00 98.5 92 18 102/55 94 05/29/16 20:00 100.7 112 22 132/67 98 05/29/16 18:00 100.6 108 19 126/66 95 05/29/16 05/29/16 05/30/16 15:00 23:00 07:00 Intake Total 960 ml 980 ml 1180 ml Output Total 1000 ml 800 ml 1700 ml Balance -40 ml 180 ml -520 ml Intake Oral 960 ml 480 ml 480 ml IV Total 500 ml 700 ml Output Urine Total 1000 ml 800 ml 1700 ml # Bowel Movements 0 0 0 . Laboratory Tests Test 05/30/16 05:00 Creatinine 0.67 MG/DL Estimat Glomerular Filtration 96 ML/MIN Rate Microbiology Date/Time Procedure Status Source Growth 05/28/16 23:45 Gram Stain - Final Resulted Abscess Back 05/28/16 23:45 Wound Culture - Preliminary Resulted Abscess Back NO GROWTH IN 24 HOURS. 05/28/16 23:45 Fungal Smear - Final Resulted Abscess Back NO FUNGAL ELEMENTS SEEN. 05/28/16 23:45 Fungal Culture Resulted Abscess Back Pending 05/28/16 23:45 Acid Fast Stain Received Abscess Back Pending 05/28/16 23:45 Mycobacterial Culture Received Abscess Back Pending 05/28/16 23:55 Gram Stain - Final Resulted Abscess Back 05/28/16 23:55 Wound Culture - Preliminary Resulted Abscess Back NO GROWTH IN 24 HOURS. 05/28/16 23:55 Acid Fast Stain Received Abscess Back Pending 05/28/16 23:55 Mycobacterial Culture Received Abscess Back Pending 05/28/16 23:55 Fungal Smear - Final Resulted Abscess Back NO FUNGAL ELEMENTS SEEN. 05/28/16 23:55 Fungal Culture Resulted Abscess Back Pending 05/29/16 05:50 Aerobic Blood Culture - Preliminary Resulted Blood Peripheral NO GROWTH IN 1 DAY 05/29/16 05:50 Anaerobic Blood Culture - Preliminary Resulted Blood Peripheral NO GROWTH IN 1 DAY 05/29/16 05:57 Aerobic Blood Culture - Preliminary Resulted Blood Peripheral NO GROWTH IN 1 DAY 05/29/16 05:57 Anaerobic Blood Culture - Preliminary Resulted Blood Peripheral NO GROWTH IN 1 DAY Imaging Last Impressions Lumbar Spine MRI 05/28/16 0000 Signed Impressions: Service Date/Time: Saturday, May 28, 2016 16:42 - CONCLUSION: Severely abnormal lumbar spine consistent with an epidural abscess, a psoas abscess and erector spinae abscess. Austin Dang MD FACR Chest X-Ray 05/19/16 0000 Signed Impressions: Service Date/Time: Thursday, May 19, 2016 14:00 - CONCLUSION: 1. Interval improvement with less interstitial edema. 2. Patchy air space disease remains particularly in the right upper lobe and left base. Austin Dang MD FACR Lumbar Spine X-Ray 05/14/162111 Signed Impressions: Service Date/Time: Saturday, May 14, 2016 21:48 - CONCLUSION: Mild disc space narrowing at the L4-L5 level. Saqib Michele MD Cervical Spine MRI 05/14/162111 Signed Impressions: Service Date/Time: Saturday, May 14, 2016 22:07 - CONCLUSION: 1. Suspected complex fluid collection in the prevertebral soft tissues extending from C3 through T1. This could represent an evolving recent hemorrhage versus other causes for complex fluid collections including an abscess. 2. Susceptibility artifact presumably from hardware at the C4 through C6 levels. There is also some susceptibility artifact at the C7-T1 disc space. 3. Mild to moderate central disc protrusion at the C3-C4 level. 4. Mild disc bulge at the C6-C7 level. Saqib Michele MD Cervical Spine CT 05/14/16 0000 Signed Impressions: Service Date/Time: Saturday, May 14, 2016 23:21 - CONCLUSION: 1. Severe prevertebral soft tissue swelling as seen on the MRI examination which may reflect hemorrhage or abscess. No bony destruction is seen to suggest osteomyelitis. No epidural soft tissue mass is evident. Zack Dumont MD Physical Exam CONSTITUTIONAL/GENERAL: Thin built CF. In mils distress 2/2 pain SKIN: No jaundice, rashes, or lesions. Ecchymoses and hyperpigmented lesions on lower extremities. Track mercado on bilateral UEs. HEAD: Atraumatic. Normocephalic. EYES: Pupils equal and round and reactive. Extraocular motions intact. No scleral icterus. No injection or drainage. Fundi not examined. ENT: moist mucosae NECK: Trachea midline. Surgical dressing in place on anterior neck wo drainage CARDIOVASCULAR: Hs audible. No murmur appreciated. RESPIRATORY/CHEST: Symmetric, unlabored respirations. Scattered rhonchi auscultation. GASTROINTESTINAL: Abdomen soft, diffuse tenderness. Mildly to moderately distended GENITOURINARY: Without palpable bladder distension. Enrique catheter in place with clear yellow urine MUSCULOSKELETAL: Extremities without clubbing, cyanosis, no edema. BACK: dressing in place intact LYMPHATICS: No palpable cervical or supraclavicular adenopathy. 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 MRSA bacteremia (MRSA MARIA ESTHER in both abscess and blood is 1) Probable endocarditis (Tricuspid vs RV mobile vegetation) acute resp failure: likely sepsis related encephalopathy ? aspiration Aspiration Pneumonia in health care setting. Acute metabolic encephalopathy: sepsis related, [employer] infection. IVDU, active HCV +, HIV - Headache ? abscess Recs cont vancomycin cont Rifampin (hardware infection for synergy for prosthetic infection, LFTs permitting this should be part of final regimen) for the entire duration of vancomycin tx anticipate group home abx tx fu L spine epidural abscess clx cont cefepime, flagyl for now; if clx remain negative will dc cefepiem and flagyl MRI brain dw pt Dina Carlos MD May 30, 2016 15:08
[2016-05-30 16:00] VITALS: BP 130/94; PULSE 110; RESP 20; TEMP 98.8; O2SAT 94
[2016-05-30] MEDS: LIDOCAINE HCL 5% PATCH TD SCH (18:00)
[2016-05-30] MEDS ORDERED: GADODIAMIDE PF 287 MG/ML 10 ML VIAL (for RAD MRI) IV PUSH ONE (19:54)
[2016-05-30 20:00] VITALS: BP 131/66; PULSE 106; RESP 22; TEMP 96.7; O2SAT 99
--- NOTE | 2016-05-30 20:05 | RADRPT ---
EXAM DATE/TIME: 05/30/2016 18:57 [facility] COMPARISON: MRI CERVICAL SPINE W/O CONTRAST, May 14, 2016, 22:07. MRI LUMBAR SPINE W & W/O CONTRAST, May 28, 2016, 16:42. FLUOROSCOPY PORTABLE UP TO 1HR, May 29, 2016, 0:00. INDICATIONS : Abscess. CONTRAST: 14 cc Omniscan (gadodiamide) IV MEDICAL HISTORY : Epidural abscess, a psoas abscess and erector spinae abscess SURGICAL HISTORY : Fusion, cervical. ENCOUNTER: Subsequent ACUITY: 1 week PAIN SCORE: 8/10 LOCATION: Bilateral cranial TECHNIQUE: Multiplanar, multisequence MRI of the brain was performed both prior to and following the administrat ion of paramagnetic contrast. FINDINGS: CEREBRUM: The ventricles are normal for age. No evidence of midline shift, mass lesion, hemorrhage or acute in farction. No extraaxial fluid collections are seen. The pituitary gland and suprasellar cistern are normal in configuration. WHITE MATTER: No significant signal abnormalities are seen in the white matter. POSTERIOR FOSSA: The cerebellum and brainstem are intact. The 4th ventricle is midline. The cerebellopontine angle is unremarkable. The cerebellar tonsils are normal in position. DIFFUSION IMAGING: No focal areas of restricted diffusion are seen. No evidence of acute infarction. EXTRACRANIAL: Prevertebral complex fluid collection along the upper cervical spine adjacent to posterior fusion flaca te is still evident. The visualized portions of the orbits and paranasal sinuses are unremarkable. POST-CONTRAST: No abnormal areas of parenchymal or dural enhancement. No evidence of blood-brain barrier breakdown. CONCLUSION: Persistent prevertebral complex fluid collection along the upper and mid cervical spine. No acute intracranial disease. Jeff Gunter MD on May 30, 2016 at 20:00 Board Certified Radiologist. This report was verified electronically.
[2016-05-30] MEDS: FAMOTIDINE SUSP 40 MG/5 ML NG SCH (20:36)
[2016-05-31] VITALS: BP 110/59; PULSE 102; RESP 22; TEMP 100.1; O2SAT 98
[2016-05-31] MEDS: HYDROmorphone HCL PF 1 MG/ML VIAL IV PRN ×5 (00:45→17:19)
[2016-05-31] MEDS: CHLORHEXIDINE GLUCONATE 2 % 1 PACK (2 CLOTHS) TOP SCH (04:00)
[2016-05-31] MEDS: CEFEPIME INJ 2,000 MG in SODIUM CHLORIDE 0.9% INJ 100 ML IV SCH ×3 (04:26→22:53)
[2016-05-31] MEDS: metroNIDAZOLE 500 MG INJ 100 ML IV SCH ×3 (04:26→20:35)
[2016-05-31] MEDS: VANCOMYCIN INJ 1,250 MG in SODIUM CHLOR 0.9% 250 ML INJ 250 ML IV SCH ×2 (04:26→12:09)
[2016-05-31] MEDS: REMOVE OLD PATCH TD SCH (06:00)
[2016-05-31] MEDS: BENEPROTEIN POWDER 1 PACK G-TUBE SCH ×3 (06:56→15:22)
[2016-05-31] MEDS: METHADONE HCL 10 MG/10 ML ORAL SOLUTION PO/TUBE SCH ×2 (07:54→20:34)
[2016-05-31] MEDS: RIFAMPIN 150 MG CAP PO SCH ×2 (07:55→20:33)
[2016-05-31] MEDS: QUEtiapine FUMARATE 25 MG TAB PO SCH ×2 (07:55→20:33)
[2016-05-31] MEDS: GABAPENTIN 300 MG CAP PO SCH ×3 (07:55→17:20)
[2016-05-31] MEDS: MULTIVITAMIN HEMATINIC THERAPEUTIC TAB OG SCH ×2 (07:55→20:33)
[2016-05-31] MEDS: LACTOBACILLUS ACIDOPHILUS TAB PO SCH ×3 (07:56→17:20)
[2016-05-31] MEDS: CETIRIZINE HCL 10 MG TAB PO SCH (07:56)
[2016-05-31] MEDS: DOCUSATE SODIUM 50 MG/SENNA 8.6 MG TAB PO SCH ×2 (07:56→20:34)
[2016-05-31] MEDS: TAMSULOSIN HCL 0.4 MG CAP PO SCH (07:56)
[2016-05-31] MEDS: CHLORHEXIDINE 0.12% (ORAL KIT) 15 ML CUP MT SCH ×2 (07:57→20:00)
[2016-05-31] MEDS: SODIUM CHLORIDE 0.9% FLUSH 5 ML FLUSH IVF SCH ×2 (07:57→20:35)
[2016-05-31 08:00] VITALS: BP 121/89; PULSE 88; RESP 18; TEMP 98.4; O2SAT 95
[2016-05-31] MEDS ORDERED: ALTEPLASE RECOMBINANT 2 MG VIAL INTRACATH ONE ×2 (08:45)
[2016-05-31 09:44] LABS: AUTOMATED NEUTROPHIL # 4.2 TH/MM3 (1.8-7.7); BASOPHIL # 0.1 TH/MM3 (0-0.2); BASOPHIL % 0.8 % (0.0-2.0); EOSINOPHIL # 0.3 TH/MM3 (0-0.4); EOSINOPHIL % 4.8 % (0.0-4.0); HEMATOCRIT 23.1 % (35.0-46.0); LYMPHOCYTE # 1.4 TH/MM3 (1.0-4.8); MEAN CELL VOLUME 64.7 FL (80.0-100.0); MEAN CORPUSCULAR HEMOGLOBIN 20.4 PG (27.0-34.0); MEAN CORPUSCULAR HGB CONC 31.5 % (32.0-36.0); MONO % 8.1 % (0.0-8.0); NEUT % 65.3 % (16.0-70.0); PLATELET COUNT 349 TH/MM3 (150-450); RED BLOOD COUNT 3.57 MIL/MM3 (4.00-5.30); RED CELL DISTRIBUTION WIDTH 29.8 % (11.6-17.2); WHITE BLOOD COUNT 6.4 TH/MM3 (4.0-11.0)
[2016-05-31 09:47] LABS: HEMO FLAGS AUTO DIFF
[2016-05-31 10:10] VITALS: TEMP 97.2
[2016-05-31 10:17] LABS: BICARBONATE 30.4 MEQ/L (21.0-32.0)
[2016-05-31] MEDS ORDERED: METH10TA PO (10:23)
[2016-05-31] MEDS ORDERED: RIFA150C2 PO (10:23)
[2016-05-31] MEDS ORDERED: LIDO5DIS35 TD (10:23)
[2016-05-31] MEDS ORDERED: FAMO1TAB37 PO (10:23)
[2016-05-31] MEDS ORDERED: CETI10 PO (10:23)
[2016-05-31] MEDS ORDERED: NEUR300C PO (10:23)
[2016-05-31] MEDS ORDERED: QUET1TAB7 PO (10:23)
[2016-05-31] MEDS ORDERED: TAMS5CAP PO (10:23)
[2016-05-31] MEDS ORDERED: LACT PO (10:23)
[2016-05-31] MEDS ORDERED: DILA8TAB4 PO (10:23)
[2016-05-31] MEDS ORDERED: FLUT50SP EACH NARE (10:23)
[2016-05-31 10:25] LABS: TARGET CELLS 1+ (NORMAL)
--- NOTE | 2016-05-31 10:25 | HHI.DS ---
Discharge Summary Admission Date May 14, 2016 at 11:18 pm Discharge Date: May 31, 2016 Admitting Diagnosis cervical epidural abscess, fever, tachycardia (1) Neck abscess ICD Code: L02.11 (2) Infectious endocarditis ICD Code: I33.0 (3) Bacteremia ICD Code: R78.81 (4) IV drug abuse ICD Code: F19.10 Procedures Transthoracic Echo 05/17/2016 - Left ventricle: The cavity size was normal. Wall thickness was normal. Systolic function was normal. The estimated ejection fraction was in the range of 55% to 60%. Wall motion was normal; there were no regional wall motion abnormalities. Doppler parameters are consistent with abnormal left ventricular relaxation (grade 1 diastolic dysfunction). - Right ventricle: Systolic pressure was increased. - Tricuspid valve: Mild regurgitation. Impressions: Mobile structure at the level of right ventricular septal area VS tricuspid valve. Possible vegetation. PETER strongly recommended Recommendations: Transesophageal echocardiography should be performed in order to exclude ticuspid valve vegetation Transesophageal echocardiogram - Left ventricle: The cavity size was normal. Wall thickness was normal. Systolic function was normal. The estimated ejection fraction was in the range of 55% to 60%. Wall motion was normal; there were no regional wall motion abnormalities. - Aortic valve: No evidence of vegetation. - Mitral valve: No evidence of vegetation. No evidence of vegetation. - Left atrium: No evidence of thrombus in the atrial cavity or appendage. - Right atrium: No evidence of thrombus in the atrial cavity or appendage. - Tricuspid valve: There was a medium-sized, mobile vegetation. Mild regurgitation. ECHOGENIC MOBILE MASS ATTACHED TO THE VALVE CONSISTENT WITH A VEGETATION - Pulmonic valve: No evidence of vegetation. 05/15/2016 Evacuation prevertebral - retropharyngeal neck abscess 05/29/2016 Left L1-2 and left L5-S1 semi-laminectomy, evacuation of epidural and intradural abscess Evacuation left L5 level lumbar paraspinous muscle abscess Brief History - From Admission This is a 45-year-old female with apparently a history of C-spine fusion several years ago who presented to the emergency department with complaints of neck and back pain, and numbness to her right arm. Patient states she fell approximately a week ago and her neck. She is in significant pain and distress and is moaning during my interview. Is very difficult to complete the interview due to her significant distress, and she refuses to provide much more information then this. In the emergency department she was noted to have a low- grade fever and elevated white blood cell count. Due to these, and MRI was ordered and demonstrates a large prevertebral cervical abscess. Dr. Oliver was called and is planning on surgically debriding this in the morning. Critical care medicine is consulted to evaluate and manage the patient's neurologic symptoms and cervical abscess. CBC/BMP: 05/31/16 0910 05/30/16 0500 Significant Findings Laboratory Tests Test 05/31/16 09:10 Red Blood Count 3.57 MIL/MM3 (4.00-5.30) Hemoglobin 7.3 GM/DL (11.6-15.3) Hematocrit 23.1 % (35.0-46.0) Mean Corpuscular Volume 64.7 FL (80.0-100.0) Mean Corpuscular Hemoglobin 20.4 PG (27.0-34.0) Mean Corpuscular Hemoglobin 31.5 % Concent (32.0-36.0) Red Cell Distribution Width 29.8 % (11.6-17.2) Monocytes (%) (Auto) 8.1 % (0.0-8.0) Eosinophils (%) (Auto) 4.8 % (0.0-4.0) Imaging Last Impressions Brain MRI 05/30/16 0000 Signed Impressions: Service Date/Time: Monday, May 30, 2016 18:57 - CONCLUSION: Persistent prevertebral complex fluid collection along the upper and mid cervical spine. No acute intracranial disease. Jeff Gunter MD Lumbar Spine MRI 05/28/16 0000 Signed Impressions: Service Date/Time: Saturday, May 28, 2016 16:42 - CONCLUSION: Severely abnormal lumbar spine consistent with an epidural abscess, a psoas abscess and erector spinae abscess. Austin Dang MD FACR Chest X-Ray 05/19/16 0000 Signed Impressions: Service Date/Time: Thursday, May 19, 2016 14:00 - CONCLUSION: 1. Interval improvement with less interstitial edema. 2. Patchy air space disease remains particularly in the right upper lobe and left base. Austin Dang MD FACR Lumbar Spine X-Ray 05/14/162111 Signed Impressions: Service Date/Time: Saturday, May 14, 2016 21:48 - CONCLUSION: Mild disc space narrowing at the L4-L5 level. Saqib Michele MD Cervical Spine MRI 05/14/162111 Signed Impressions: Service Date/Time: Saturday, May 14, 2016 22:07 - CONCLUSION: 1. Suspected complex fluid collection in the prevertebral soft tissues extending from C3 through T1. This could represent an evolving recent hemorrhage versus other causes for complex fluid collections including an abscess. 2. Susceptibility artifact presumably from hardware at the C4 through C6 levels. There is also some susceptibility artifact at the C7-T1 disc space. 3. Mild to moderate central disc protrusion at the C3-C4 level. 4. Mild disc bulge at the C6-C7 level. Saqib Michele MD Cervical Spine CT 05/14/16 0000 Signed Impressions: Service Date/Time: Saturday, May 14, 2016 23:21 - CONCLUSION: 1. Severe prevertebral soft tissue swelling as seen on the MRI examination which may reflect hemorrhage or abscess. No bony destruction is seen to suggest osteomyelitis. No epidural soft tissue mass is evident. Zack Dumont MD PE at Discharge GENERAL: Alert, NAD. SKIN: Warm and dry. HEAD: Normocephalic. EYES: No scleral icterus. No injection or drainage. NECK: Supple, trachea midline. No JVD or lymphadenopathy. CARDIOVASCULAR: Regular rate and rhythm without murmurs, gallops, or rubs. RESPIRATORY: Breath sounds equal bilaterally. No accessory muscle use. GASTROINTESTINAL: Abdomen somewhat firm, non-tender, nondistended. MUSCULOSKELETAL: No cyanosis, or edema. BACK: Nontender without obvious deformity. No CVA tenderness. Pt Condition on Discharge: Good Discharge Disposition: Discharge to SNF Discharge Time: > 30 minutes Discharge Instructions DIET: Follow Instructions for: As Tolerated, No Restrictions Activities you can perform: Regular-No Restrictions Follow up Referrals: Neurosurgery - 2 Weeks with Aravind Oliver MD New Medications: Famotidine (Pepcid) 20 Mg Tab 20 MG PO BID Reflux #60 Ref 0 TAB Fluticasone Nasal [place] (Fluticasone Nasal [place]) 50 Mcg/Act Naspr 50 MCG EACH NARE BID 50 mcg/spray Allergy Management #1 Ref 0 BOTTLE Hydromorphone (Dilaudid) 8 Mg Tab 8 MG PO Q6H PRN PAIN SCALE 5 TO 10 #20 Ref 0 TAB Methadone (Methadone) 10 Mg Tab 20 MG PO DAILY Pain Management #10 Ref 0 TAB Cetirizine (Cetirizine) 10 Mg Tab 10 MG PO DAILY Allergies #30 TAB Gabapentin (Neurontin) 300 Mg Cap 300 MG PO TID Neuropathic pain #90 CAP Lactobacillus Acidophilus (Acidophilus/l-Sporogenes) 1 Tab Tab 1 TAB PO TID Infection #90 TAB Lidocaine Patch 12 HR (Lidoderm Patch 12 HR) 5% Patch 1 PATCH TD DAILY@18 Pain Management #10 BOX Quetiapine (Quetiapine) 25 Mg Tab 25 MG PO BID Anxiety and/or Insomnia #60 TAB Rifampin (Rifampin) 150 Mg Cap 300 MG PO Q12HR Infection #60 CAP Tamsulosin (Flomax) 0.4 Mg Cap 0.4 MG PO DAILY Urinary #30 CAP West Stone DO May 31, 2016 10:25
[2016-05-31 10:27] LABS: KERATOCYTES OCC (NORMAL)
[2016-05-31 10:28] LABS: PLATELET ESTIMATE SMEAR NORMAL (NORMAL); PLATELET MORPHOLOGY NORMAL (NORMAL); SCAN/DIFF AUTO DIFF CONFIRMED
[2016-05-31 12:00] VITALS: BP 104/55; PULSE 98; RESP 20; TEMP 96.4; O2SAT 98
[2016-05-31] MEDS ORDERED: PHARMACY ORDERED LAB XX ONE (12:45)
--- NOTE | 2016-05-31 13:56 | HHI.PR ---
Subjective Remarks Follow up for neck abscess s/p retropharyngeal abscess drainage and epidural/ intradural abscess. Ms. Rock is doing much better today. No fever, chills. Sitting in her bed and eating breakfast. Objective Vitals Vital Signs Date Time Temp Pulse Resp B/P Pulse Ox O2 Delivery O2 Flow Rate FiO2 05/31/16 10:10 97.2 05/31/16 08:54 18 05/31/16 08:54 18 05/31/16 08:00 98.4 88 18 121/89 95 05/31/16 00:00 100.1 102 22 110/59 98 05/30/16 20:00 96.7 106 22 131/66 99 05/30/16 18:42 18 05/30/16 18:42 18 05/30/16 16:00 98.8 110 20 130/94 94 I/O 05/30/16 05/30/16 05/30/16 05/31/16 05/31/16 05/31/16 07:00 15:00 23:00 07:00 15:00 23:00 Intake Total 1180 ml 1935 ml 480 ml 1180 ml Output Total 1700 ml 1800 ml 350 ml 2150 ml Balance -520 ml 135 ml 130 ml -970 ml Intake Oral 480 ml 800 ml 480 ml 480 ml IV Total 700 ml 1135 ml 700 ml Output Urine Total 1700 ml 1800 ml 350 ml 2150 ml # Bowel Movements 0 3 1 1 Result Diagram: 05/31/16 0910 05/31/16 0910 Imaging Last Impressions Brain MRI 05/30/16 0000 Signed Impressions: Service Date/Time: Monday, May 30, 2016 18:57 - CONCLUSION: Persistent prevertebral complex fluid collection along the upper and mid cervical spine. No acute intracranial disease. Jeff Gunter MD Lumbar Spine MRI 05/28/16 0000 Signed Impressions: Service Date/Time: Saturday, May 28, 2016 16:42 - CONCLUSION: Severely abnormal lumbar spine consistent with an epidural abscess, a psoas abscess and erector spinae abscess. Austin Dang MD FACR Chest X-Ray 05/19/16 0000 Signed Impressions: Service Date/Time: Thursday, May 19, 2016 14:00 - CONCLUSION: 1. Interval improvement with less interstitial edema. 2. Patchy air space disease remains particularly in the right upper lobe and left base. Austin Dang MD FACR Lumbar Spine X-Ray 05/14/162111 Signed Impressions: Service Date/Time: Saturday, May 14, 2016 21:48 - CONCLUSION: Mild disc space narrowing at the L4-L5 level. Saqib Michele MD Cervical Spine MRI 05/14/162111 Signed Impressions: Service Date/Time: Saturday, May 14, 2016 22:07 - CONCLUSION: 1. Suspected complex fluid collection in the prevertebral soft tissues extending from C3 through T1. This could represent an evolving recent hemorrhage versus other causes for complex fluid collections including an abscess. 2. Susceptibility artifact presumably from hardware at the C4 through C6 levels. There is also some susceptibility artifact at the C7-T1 disc space. 3. Mild to moderate central disc protrusion at the C3-C4 level. 4. Mild disc bulge at the C6-C7 level. Saqib Michele MD Cervical Spine CT 05/14/16 0000 Signed Impressions: Service Date/Time: Saturday, May 14, 2016 23:21 - CONCLUSION: 1. Severe prevertebral soft tissue swelling as seen on the MRI examination which may reflect hemorrhage or abscess. No bony destruction is seen to suggest osteomyelitis. No epidural soft tissue mass is evident. Zack Dumont MD Objective Remarks GENERAL: Alert, NAD. SKIN: Warm and dry. HEAD: Normocephalic. EYES: No scleral icterus. No injection or drainage. NECK: Supple, trachea midline. No JVD or lymphadenopathy. CARDIOVASCULAR: Regular rate and rhythm without murmurs, gallops, or rubs. RESPIRATORY: Breath sounds equal bilaterally. No accessory muscle use. GASTROINTESTINAL: Abdomen somewhat firm, non-tender, nondistended. MUSCULOSKELETAL: No cyanosis, or edema. BACK: Nontender without obvious deformity. No CVA tenderness. Procedures Transthoracic Echo 05/17/2016 - Left ventricle: The cavity size was normal. Wall thickness was normal. Systolic function was normal. The estimated ejection fraction was in the range of 55% to 60%. Wall motion was normal; there were no regional wall motion abnormalities. Doppler parameters are consistent with abnormal left ventricular relaxation (grade 1 diastolic dysfunction). - Right ventricle: Systolic pressure was increased. - Tricuspid valve: Mild regurgitation. Impressions: Mobile structure at the level of right ventricular septal area VS tricuspid valve. Possible vegetation. PETER strongly recommended Recommendations: Transesophageal echocardiography should be performed in order to exclude ticuspid valve vegetation Transesophageal echocardiogram - Left ventricle: The cavity size was normal. Wall thickness was normal. Systolic function was normal. The estimated ejection fraction was in the range of 55% to 60%. Wall motion was normal; there were no regional wall motion abnormalities. - Aortic valve: No evidence of vegetation. - Mitral valve: No evidence of vegetation. No evidence of vegetation. - Left atrium: No evidence of thrombus in the atrial cavity or appendage. - Right atrium: No evidence of thrombus in the atrial cavity or appendage. - Tricuspid valve: There was a medium-sized, mobile vegetation. Mild regurgitation. ECHOGENIC MOBILE MASS ATTACHED TO THE VALVE CONSISTENT WITH A VEGETATION - Pulmonic valve: No evidence of vegetation. 05/15/2016 Evacuation prevertebral - retropharyngeal neck abscess 05/29/2016 Left L1-2 and left L5-S1 semi-laminectomy, evacuation of epidural and intradural abscess Evacuation left L5 level lumbar paraspinous muscle abscess A/P Problem List: (1) Neck abscess ICD Code: L02.11 Status: Acute (2) Infectious endocarditis ICD Code: I33.0 Status: Acute (3) Bacteremia ICD Code: R78.81 Status: Acute (4) IV drug abuse ICD Code: F19.10 Status: Acute Assessment and Plan Ms. Rock is a 45-year-old female with apparently a history of C-spine fusion several years ago who presented to the emergency department with complaints of neck and back pain, and numbness to her right arm on 05/14/2016. MRI imaging indicated a large prevertebral abscess. Neurosurgery performed I&D on 2016. TTE indicated possible endocarditis which was later confirmed with PETER. Patient is currently on Vancomycin, Gentamicin and Rifampin per ID recommendations. Due to worsening respiratory status, patient was intubated on and extubated on 05/22/2016. - Cervical prevertebral abscess I&D on 05/15/2016. - Lumbar epidural abscess - Lumbar intradural abscess s/p I&D 05/29/2016. 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 - Continue Vancomycin, Rifampin per ID recommendations. Gentamicin discontinued on 05/22/2016. - Blood culture growing MRSA. Negative blood culture since 05/20/2016. 6 weeks of Vanc/Rifampin starting 05/20/2016. STOP date would be 07/01/2016. - Neurosurgery, ID following. - Pain medications (updated 05/23/2016). Acetaminophen 650mg Q6hrs PRN Gabapentin 300mg TID Lidocaine patch 5% Daily. Methadone 20mg BID. Oxycodone 10mg Q4hrs PRN Dilaudid IV 1.5 mg Q3hrs PRN for breakthrough. Tizanidine 5mg Q12hrs. - Not a surgical candidate per Cardiothoracic surgery. - MRI brain shows some fluid collection. Discussed with Neurosurgery (Dr. Oliver) who will evaluate patient today 05/31/2016. - If Neurosurgery clears for discharge, ID can place orders for vancomycin infusion. Patient has been accepted at [facility]. - Acute hypoxic respiratory failure - s/p Extubation. currently on Nasal cannula. - Continue DuoNeb PRN. - Hypokalemia - Corrected. - Continue replacing potassium with KCL PO. - IV Drug abuse - Patient has received counselling. - Agitation - Continue Seroquel 25mg BID. Our goal is to keep her more calm and reduce pain medications. Full code. SCDs. Discussed with Dr. Carlos (ID) and Dr. Oliver (Neurosurgery). Problem Qualifiers (1) Infectious endocarditis: West Stone DO May 31, 2016 1:56 pm
[2016-05-31 16:00] VITALS: BP 114/58; PULSE 105; RESP 21; TEMP 98.5; O2SAT 98
[2016-05-31] MEDS: LIDOCAINE HCL 5% PATCH TD SCH (18:03)
--- NOTE | 2016-05-31 19:46 | HHI.NSPN ---
History Chief Complaint: low back pain Interval History 45-year-old female with history of IV drug abuse presented to the emergency room 05/14/16 with progressive severe neck pain following a fall approximately 1 week prior. History of previous ACDF several years ago. Initial imaging studies revealed a large prevertebral cervical abscess. The patient underwent surgical evacuation of the abscess on 05/15/16. She has been followed by infectious disease. She has been undergoing physical therapy. Patient states for the past 2 or 3 days she has had increasing low back pain and some increased pain and weakness in the proximal left lower extremity. She states that she fell on 05/26/16 while trying to ambulate. No additional pain following a fall. Due to persistent lower back and lower extremity symptoms patient under went an MRI of the lumbar spine 05/28/2016. 05/29/2016: L1-2 and L5-S1 laminectomy evacuation of epidural and intradural abscess. Exam Results Vital Signs Date Time Temp Pulse Resp B/P Pulse Ox O2 Delivery O2 Flow Rate FiO2 05/31/16 17:49 18 05/31/16 16:00 98.5 105 114/58 98 05/29/16 02:00 Nasal Cannula 3 Intake and Output 05/30/16 05/30/16 05/31/16 08:00 16:00 00:00 Intake Total 1180 ml 1935 ml 480 ml Output Total 1700 ml 1800 ml 350 ml Balance -520 ml 135 ml 130 ml Physical Examination Awake and alert Speech is clear Lumbar dressings dry and intact The neck incision is healing well. Steri-Strips in place. No erythema, edema, tenderness. No evidence of recurrent neck abscess. There is no hoarseness of voice Sensation intact upper extremities and bilateral lower extremity light touch Strength is within normal limits major flexion and extension groups in the upper extremities as well as hand intrinsic musculature Motor function within normal limits major flexion and extension groups right lower extremity. She complains of moderate pain in the left lateral hip and thigh with proximal left lower extremity motor testing, which is mostly 4/5 Lesser pain with distal left lower extremity motor testing which is mostly 4-5/5 Lab, Micro, Other Results Laboratory Tests Test 05/31/16 05/31/16 09:10 11:40 White Blood Count 6.4 TH/MM3 Red Blood Count 3.57 MIL/MM3 Hemoglobin 7.3 GM/DL Hematocrit 23.1 % Mean Corpuscular Volume 64.7 FL Mean Corpuscular Hemoglobin 20.4 PG Mean Corpuscular Hemoglobin 31.5 % Concent Red Cell Distribution Width 29.8 % Platelet Count 349 TH/MM3 Mean Platelet Volume 8.3 FL Neutrophils (%) (Auto) 65.3 % Lymphocytes (%) (Auto) 21.0 % Monocytes (%) (Auto) 8.1 % Eosinophils (%) (Auto) 4.8 % Basophils (%) (Auto) 0.8 % Neutrophils # (Auto) 4.2 TH/MM3 Lymphocytes # (Auto) 1.4 TH/MM3 Monocytes # (Auto) 0.5 TH/MM3 Eosinophils # (Auto) 0.3 TH/MM3 Basophils # (Auto) 0.1 TH/MM3 CBC Comment AUTO DIFF Differential Comment AUTO DIFF CONFIRMED Platelet Estimate NORMAL Platelet Morphology Comment NORMAL Target Cells 1+ Keratocytes OCC Sodium Level 135 MEQ/L Potassium Level 4.0 MEQ/L Chloride Level 98 MEQ/L Carbon Dioxide Level 30.4 MEQ/L Anion Gap 7 MEQ/L Blood Urea Nitrogen 13 MG/DL Creatinine 0.55 MG/DL Estimat Glomerular Filtration 120 ML/MIN Rate Random Glucose 85 MG/DL Calcium Level 8.7 MG/DL Vancomycin Level Trough 41.0 MCG/ML Medical Decision Making Impression and Plan Impression 1. Status post L1-2 and L5-S1 laminectomy for evacuation of Large lumbar epidural/intradural abscess. 2. Status post evacuation of cervical prevertebral abscess with no evidence of recurrence. Stable postop neurologic function Plan: Continue physical therapy. Patient continues to follow with infectious disease Discussed with medicine service and infectious disease today. She is neurologically stable. No definite evidence of recurrent neck abscess on examination. Lower extremity neurologic function is improved postoperative. She has extensive abscess in the lumbar region. This will require close monitoring. She is stable for discharge to custodial with continued IV antibiotics. She will require a follow-up MRI of her spine next week. Mobilize out of bed as tolerated Aravind Oliver MD May 31, 2016 19:46
[2016-05-31 20:00] VITALS: BP 122/65; PULSE 109; RESP 20; TEMP 98.9; O2SAT 99
[2016-05-31] MEDS: FAMOTIDINE SUSP 40 MG/5 ML NG SCH (20:34)
[2016-06-01] VITALS: BP 113/63; PULSE 105; RESP 20; TEMP 97.8; O2SAT 96
[2016-06-01] MEDS: HYDROmorphone HCL PF 1 MG/ML VIAL IV PRN ×2 (01:07→04:02)
[2016-06-01] MEDS: CHLORHEXIDINE GLUCONATE 2 % 1 PACK (2 CLOTHS) TOP SCH (04:00)
[2016-06-01] MEDS: metroNIDAZOLE 500 MG INJ 100 ML IV SCH ×2 (05:59→13:39)
[2016-06-01] MEDS: REMOVE OLD PATCH TD SCH (06:00)
[2016-06-01] MEDS: CEFEPIME INJ 2,000 MG in SODIUM CHLORIDE 0.9% INJ 100 ML IV SCH ×2 (06:59→13:40)
[2016-06-01 08:00] VITALS: BP 129/74; PULSE 90; RESP 18; TEMP 97.7; O2SAT 97
[2016-06-01] MEDS: CETIRIZINE HCL 10 MG TAB PO SCH (08:29)
[2016-06-01] MEDS: MULTIVITAMIN HEMATINIC THERAPEUTIC TAB OG SCH (08:29)
[2016-06-01] MEDS: METHADONE HCL 10 MG/10 ML ORAL SOLUTION PO/TUBE SCH (08:29)
[2016-06-01] MEDS: DOCUSATE SODIUM 50 MG/SENNA 8.6 MG TAB PO SCH (08:30)
[2016-06-01] MEDS: RIFAMPIN 150 MG CAP PO SCH (08:30)
[2016-06-01] MEDS: QUEtiapine FUMARATE 25 MG TAB PO SCH (08:30)
[2016-06-01] MEDS: LACTOBACILLUS ACIDOPHILUS TAB PO SCH ×2 (08:31→12:39)
[2016-06-01] MEDS: GABAPENTIN 300 MG CAP PO SCH ×2 (08:31→12:39)
[2016-06-01] MEDS ORDERED: HYDROmorphone HCL 2 MG TAB PO ONE (11:15)
--- NOTE | 2016-06-01 11:50 | HHI.PR ---
Subjective Remarks Febrile overnight. Patient complains of severe neck pain but has not received IV Dilaudid today. She states she is ready to be transferred to [facility]. Last bowel movement was this morning. Objective Vitals Vital Signs Date Time Temp Pulse Resp B/P Pulse Ox O2 Delivery O2 Flow Rate FiO2 06/01/16 08:00 97.7 90 18 129/74 97 06/01/16 04:53 18 06/01/16 04:01 20 06/01/16 00:00 97.8 105 20 113/63 96 05/31/16 23:48 16 05/31/16 20:00 98.9 109 20 122/65 99 05/31/16 16:00 98.5 105 21 114/58 98 05/31/16 12:00 96.4 98 20 104/55 98 I/O 05/31/16 05/31/16 05/31/16 06/01/16 06/01/16 06/01/16 07:00 15:00 23:00 07:00 15:00 23:00 Intake Total 1180 ml 2135 ml 120 ml 120 ml 563 ml Output Total 2150 ml 1300 ml 900 ml 650 ml Balance -970 ml 835 ml -780 ml -530 ml 563 ml Intake Oral 480 ml 800 ml 120 ml 120 ml IV Total 700 ml 1335 ml 0 ml 563 ml Output Urine Total 2150 ml 1300 ml 900 ml 650 ml # Bowel Movements 1 1 Result Diagram: 05/31/16 0910 06/01/16 0530 Objective Remarks Gen.: No acute distress Head: Normocephalic. Atraumatic. EENT: Pupils equal round and reactive to light. Nose without drainage. Airway intact. Throat without injection. Cardiovascular: Regular rate and rhythm. No murmurs, rubs or gallops. Respiratory: Lungs clear to auscultation bilaterally. No wheezes or rhonchi. Abdomen: Soft, nontender, nondistended. No peritoneal signs. Musculoskeletal: No gross deformities. No edema. Skin: No obvious rashes or erythema. Neuro: Sensory and motor grossly intact. Cranial nerves II through XII grossly intact. Psych: Tearful, requesting Dilaudid Procedures Transthoracic Echo 05/17/2016 - Left ventricle: The cavity size was normal. Wall thickness was normal. Systolic function was normal. The estimated ejection fraction was in the range of 55% to 60%. Wall motion was normal; there were no regional wall motion abnormalities. Doppler parameters are consistent with abnormal left ventricular relaxation (grade 1 diastolic dysfunction). - Right ventricle: Systolic pressure was increased. - Tricuspid valve: Mild regurgitation. Impressions: Mobile structure at the level of right ventricular septal area VS tricuspid valve. Possible vegetation. PETER strongly recommended Recommendations: Transesophageal echocardiography should be performed in order to exclude ticuspid valve vegetation Transesophageal echocardiogram - Left ventricle: The cavity size was normal. Wall thickness was normal. Systolic function was normal. The estimated ejection fraction was in the range of 55% to 60%. Wall motion was normal; there were no regional wall motion abnormalities. - Aortic valve: No evidence of vegetation. - Mitral valve: No evidence of vegetation. No evidence of vegetation. - Left atrium: No evidence of thrombus in the atrial cavity or appendage. - Right atrium: No evidence of thrombus in the atrial cavity or appendage. - Tricuspid valve: There was a medium-sized, mobile vegetation. Mild regurgitation. ECHOGENIC MOBILE MASS ATTACHED TO THE VALVE CONSISTENT WITH A VEGETATION - Pulmonic valve: No evidence of vegetation. 05/15/2016 Evacuation prevertebral - retropharyngeal neck abscess 05/29/2016 Left L1-2 and left L5-S1 semi-laminectomy, evacuation of epidural and intradural abscess Evacuation left L5 level lumbar paraspinous muscle abscess A/P Problem List: (1) Neck abscess ICD Code: L02.11 Status: Acute (2) Infectious endocarditis ICD Code: I33.0 Status: Acute (3) Bacteremia ICD Code: R78.81 Status: Acute (4) IV drug abuse ICD Code: F19.10 Status: Acute Assessment and Plan Ms. Rock is a 45-year-old female with apparently a history of C-spine fusion several years ago who presented to the emergency department with complaints of neck and back pain, and numbness to her right arm on 05/14/2016. MRI imaging indicated a large prevertebral abscess. Neurosurgery performed I&D on 2016. TTE indicated possible endocarditis which was later confirmed with PETER. Patient is currently on Vancomycin, Gentamicin and Rifampin per ID recommendations. Due to worsening respiratory status, patient was intubated on and extubated on 05/22/2016. - Cervical prevertebral abscess I&D on 05/15/2016. - Lumbar epidural abscess - Lumbar intradural abscess s/p I&D 05/29/2016. 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 - Continue Vancomycin, Rifampin per ID recommendations. Gentamicin discontinued on 05/22/2016. - Blood culture growing MRSA. Negative blood culture since 05/20/2016. 6 weeks of Vanc/Rifampin starting 05/20/2016. STOP date would be 07/01/2016. - Neurosurgery, ID following. - Pain medications (updated 05/23/2016). Acetaminophen 650mg Q6hrs PRN Gabapentin 300mg TID Lidocaine patch 5% Daily. Methadone 20mg BID. Oxycodone 10mg Q4hrs PRN Dilaudid IV 1.5 mg Q3hrs PRN for breakthrough. Tizanidine 5mg Q12hrs. - Not a surgical candidate per Cardiothoracic surgery. - Patient cleared for discharge from neurosurgical standpoint, will need close follow-up - ID will place orders for vancomycin infusion. Patient has been accepted at [facility]. - Acute hypoxic respiratory failure - s/p Extubation. currently on room air - Continue DuoNeb PRN. - Hypokalemia - Corrected. - Continue replacing potassium with KCL PO. - IV Drug abuse - Patient has received counselling. - Agitation - Continue Seroquel 25mg BID. Our goal is to keep her more calm and reduce pain medications. Full code. SCDs. Discharge Planning To [facility] today Problem Qualifiers (1) Infectious endocarditis: Johana Roach MD R3 Jun 01, 2016 11:50
--- NOTE | 2016-06-01 11:57 | HHI.DS ---
[facility] Discharge Summary Admission Date May 14, 2016 at 23:18 Discharge Date: Jun 01, 2016 Admitting Diagnosis cervical epidural abscess, fever, tachycardia (1) Neck abscess ICD Code: L02.11 Diagnosis: Principal (2) Infectious endocarditis ICD Code: I33.0 Diagnosis: Principal (3) Bacteremia ICD Code: R78.81 Diagnosis: Principal (4) IV drug abuse ICD Code: F19.10 Diagnosis: Secondary Procedures Transthoracic Echo 05/17/2016 - Left ventricle: The cavity size was normal. Wall thickness was normal. Systolic function was normal. The estimated ejection fraction was in the range of 55% to 60%. Wall motion was normal; there were no regional wall motion abnormalities. Doppler parameters are consistent with abnormal left ventricular relaxation (grade 1 diastolic dysfunction). - Right ventricle: Systolic pressure was increased. - Tricuspid valve: Mild regurgitation. Impressions: Mobile structure at the level of right ventricular septal area VS tricuspid valve. Possible vegetation. PETER strongly recommended Recommendations: Transesophageal echocardiography should be performed in order to exclude ticuspid valve vegetation Transesophageal echocardiogram - Left ventricle: The cavity size was normal. Wall thickness was normal. Systolic function was normal. The estimated ejection fraction was in the range of 55% to 60%. Wall motion was normal; there were no regional wall motion abnormalities. - Aortic valve: No evidence of vegetation. - Mitral valve: No evidence of vegetation. No evidence of vegetation. - Left atrium: No evidence of thrombus in the atrial cavity or appendage. - Right atrium: No evidence of thrombus in the atrial cavity or appendage. - Tricuspid valve: There was a medium-sized, mobile vegetation. Mild regurgitation. ECHOGENIC MOBILE MASS ATTACHED TO THE VALVE CONSISTENT WITH A VEGETATION - Pulmonic valve: No evidence of vegetation. 05/15/2016 Evacuation prevertebral - retropharyngeal neck abscess 05/29/2016 Left L1-2 and left L5-S1 semi-laminectomy, evacuation of epidural and intradural abscess Evacuation left L5 level lumbar paraspinous muscle abscess Brief History - From Admission This is a 45-year-old female with apparently a history of C-spine fusion several years ago who presented to the emergency department with complaints of neck and back pain, and numbness to her right arm. Patient states she fell approximately a week ago and her neck. She is in significant pain and distress and is moaning during my interview. Is very difficult to complete the interview due to her significant distress, and she refuses to provide much more information then this. In the emergency department she was noted to have a low- grade fever and elevated white blood cell count. Due to these, and MRI was ordered and demonstrates a large prevertebral cervical abscess. Dr. Oliver was called and is planning on surgically debriding this in the morning. Critical care medicine is consulted to evaluate and manage the patient's neurologic symptoms and cervical abscess. CBC/BMP: 05/31/16 0910 06/01/16 0530 Significant Findings Laboratory Tests Test 05/31/16 05/31/16 09:10 11:40 Red Blood Count 3.57 MIL/MM3 (4.00-5.30) Hemoglobin 7.3 GM/DL (11.6-15.3) Hematocrit 23.1 % (35.0-46.0) Mean Corpuscular Volume 64.7 FL (80.0-100.0) Mean Corpuscular Hemoglobin 20.4 PG (27.0-34.0) Mean Corpuscular Hemoglobin 31.5 % Concent (32.0-36.0) Red Cell Distribution Width 29.8 % (11.6-17.2) Monocytes (%) (Auto) 8.1 % (0.0-8.0) Eosinophils (%) (Auto) 4.8 % (0.0-4.0) Target Cells 1+ (NORMAL) Keratocytes OCC (NORMAL) Sodium Level 135 MEQ/L (136-145) Vancomycin Level Trough 41.0 MCG/ML (5.0-10.0) Imaging Last Impressions Brain MRI 05/30/16 0000 Signed Impressions: Service Date/Time: Monday, May 30, 2016 18:57 - CONCLUSION: Persistent prevertebral complex fluid collection along the upper and mid cervical spine. No acute intracranial disease. Jeff Gunter MD Lumbar Spine MRI 05/28/16 0000 Signed Impressions: Service Date/Time: Saturday, May 28, 2016 16:42 - CONCLUSION: Severely abnormal lumbar spine consistent with an epidural abscess, a psoas abscess and erector spinae abscess. Austin Dang MD FACR Chest X-Ray 05/19/16 0000 Signed Impressions: Service Date/Time: Thursday, May 19, 2016 14:00 - CONCLUSION: 1. Interval improvement with less interstitial edema. 2. Patchy air space disease remains particularly in the right upper lobe and left base. Austin Dang MD FACR Lumbar Spine X-Ray 05/14/162111 Signed Impressions: Service Date/Time: Saturday, May 14, 2016 21:48 - CONCLUSION: Mild disc space narrowing at the L4-L5 level. Saqib Michele MD Cervical Spine MRI 05/14/162111 Signed Impressions: Service Date/Time: Saturday, May 14, 2016 22:07 - CONCLUSION: 1. Suspected complex fluid collection in the prevertebral soft tissues extending from C3 through T1. This could represent an evolving recent hemorrhage versus other causes for complex fluid collections including an abscess. 2. Susceptibility artifact presumably from hardware at the C4 through C6 levels. There is also some susceptibility artifact at the C7-T1 disc space. 3. Mild to moderate central disc protrusion at the C3-C4 level. 4. Mild disc bulge at the C6-C7 level. Saqib Michele MD Cervical Spine CT 05/14/16 0000 Signed Impressions: Service Date/Time: Saturday, May 14, 2016 23:21 - CONCLUSION: 1. Severe prevertebral soft tissue swelling as seen on the MRI examination which may reflect hemorrhage or abscess. No bony destruction is seen to suggest osteomyelitis. No epidural soft tissue mass is evident. Zack Dumont MD PE at Discharge Gen.: No acute distress Head: Normocephalic. Atraumatic. EENT: Pupils equal round and reactive to light. Nose without drainage. Airway intact. Throat without injection. Cardiovascular: Regular rate and rhythm. No murmurs, rubs or gallops. Respiratory: Lungs clear to auscultation bilaterally. No wheezes or rhonchi. Abdomen: Soft, nontender, nondistended. No peritoneal signs. Musculoskeletal: No gross deformities. No edema. Skin: No obvious rashes or erythema. Neuro: Sensory and motor grossly intact. Cranial nerves II through XII grossly intact. Psych: Tearful, requesting Dilaudid Hospital Course Ms. Rock is a 45-year-old female with apparently a history of C-spine fusion several years ago who presented to the emergency department with complaints of neck and back pain, and numbness to her right arm on 05/14/2016. MRI imaging indicated a large prevertebral abscess. Neurosurgery performed I&D on 2016. TTE indicated possible endocarditis which was later confirmed with PETER. She was also found to have a lumbar intradural abscess and is status post I&D on 05/29. Infectious disease consulted, patient initially placed on vancomycin and rifampin and gentamicin. Gentamicin discontinued on 05/22. Blood culture growing MRSA, most recent blood culture no growth to date 3 days. Patient is currently on Vancomycin and Rifampin per ID recommendations. Due to worsening respiratory status, patient was intubated on 05/18/2016 and extubated on 2016. Given patient's IV drug abuse status, pain control has been difficult. She is currently on methadone, gabapentin, oxycodone and Dilaudid. She will be discharged on these medications. Her respiratory status is improved and she is stable on room air. Pt Condition on Discharge: Good Discharge Disposition: Discharge to SNF Discharge Time: > 30 minutes Discharge Instructions DIET: Follow Instructions for: As Tolerated, No Restrictions Activities you can perform: Regular-No Restrictions Follow up Referrals: Neurosurgery - 2 Weeks with Aravind Oliver MD New Orders: MRI C Spine W & W/O Contrast - 1 Week MRI L Spine W & W/O Contrast - 1 Week New Medications: Famotidine (Pepcid) 20 Mg Tab 20 MG PO BID Reflux #60 Ref 0 TAB Fluticasone Nasal [place] (Fluticasone Nasal [place]) 50 Mcg/Act Naspr 50 MCG EACH NARE BID 50 mcg/spray Allergy Management #1 Ref 0 BOTTLE Hydromorphone (Dilaudid) 8 Mg Tab 8 MG PO Q6H PRN PAIN SCALE 5 TO 10 #20 Ref 0 TAB Methadone (Methadone) 10 Mg Tab 20 MG PO DAILY Pain Management #10 Ref 0 TAB Cetirizine (Cetirizine) 10 Mg Tab 10 MG PO DAILY Allergies #30 TAB Gabapentin (Neurontin) 300 Mg Cap 300 MG PO TID Neuropathic pain #90 CAP Lactobacillus Acidophilus (Acidophilus/l-Sporogenes) 1 Tab Tab 1 TAB PO TID Infection #90 TAB Lidocaine Patch 12 HR (Lidoderm Patch 12 HR) 5% Patch 1 PATCH TD DAILY@18 Pain Management #10 BOX Quetiapine (Quetiapine) 25 Mg Tab 25 MG PO BID Anxiety and/or Insomnia #60 TAB Rifampin (Rifampin) 150 Mg Cap 300 MG PO Q12HR Infection #60 CAP Tamsulosin (Flomax) 0.4 Mg Cap 0.4 MG PO DAILY Urinary #30 CAP Johana Roach MD R3 Jun 01, 2016 11:57
[2016-06-01 12:00] VITALS: BP 108/54; PULSE 91; RESP 20; TEMP 98; O2SAT 96
[2016-06-01] MEDS ORDERED: VANCOMYCIN INJ 1,250 MG in SODIUM CHLOR 0.9% 250 ML INJ 250 ML IV ONE (13:00)
--- NOTE | 2016-06-01 13:25 | HHI.PR ---
Addendum to Inpatient Note Addendum Reason: Additional Documentation Additional Information final clx positive for MRSA OK to dc pt home cont vacncomycin + rifampin 300 bid x 12 wks total form the time of surgery or longer if ESR remains high Keep vanco levels trough around 20 Repeat whole spien MRI next week dw Dr Doc Carlos,Dina Byers MD Jun 01, 2016 13:25
--- NOTE | 2016-06-01 13:28 | HHI.FF ---
Infusion Therapy Location of Infusion Therapy: [facility] Infusion Therapy Order Patient Information Patient Weight 65.5 kg Diagnosis: Diagnosis Epidural abscess Coded Allergies: Penicillin (Verified Allergy, Intermediate, Rash, 04/04/16) Has taken Keflex without any problem *MDRO Multi-Drug Resistant Organism (Verified Adverse Reaction, Unknown, ) MRSA (blood) - 05/14/16, 05/16/16, 05/18/16; (sputum) - 05/17/16 Uncoded Allergies: chemical allergy (Allergy, Severe, anaphalactic, 09/27/12) Administer Medication 1 gram IV q 12 hours Start Treatment: Jun 01, 2016 Stop Treatment: August 21, 2016 Additional Information Venous access: PICC Line Additional Instructions [x] Peripheral flush and dressing changes per protocol [x] 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 [] May leave port accessed during therapy. [] May leave peripheral site accessed for duration of therapy. [x] If patient has SOB or respiratory distress, check oxygen saturation. If less than 90% or clinical signs of respiratory distress, administer oxygen at 2 L/min. via nasal cannula and notify physician. [x] Anaphylaxis/Reaction orders: * Stop infusion. * Keep IV line open with saline flush. * Notify physician. * Monitor vital signs every 15 minutes until symptoms resolve. * Check Oxygen saturation; Oxygen at 2 L/min. via nasal cannula if less than 90% or clinical signs of respiratory distress. * Administer diphenhydramine (Benadryl) 25 mg IV STAT, (unless patient has received as pre-med). May repeat once, if necessary. * Solu-Cortef 250 mg IVP over 30-60 seconds, use 100 mg vials for each dissolution. * Epinephrine (1mg/1 ml) 0.3 mg subcutaneously or IVP now with any signs of respiratory distress. * Check with physician for new additional pre-med orders if patient is re- challenged or re-treated. [x] May remove PICC line when treatment complete, after confirming with Physician. [x] If the patient is admitted to the hospital, the ED, or transferred via [facility] , complete transfer form including medication reconciliation order sheet. Laboratory Tests Weekly Labs: CBC w/diff, Creatinine, CRP, LFT's (Hepatic function test), SED Rate, Vancomycin Trough Dina Carlos MD Jun 01, 2016 13:28
[2016-06-01] MEDS: TAMSULOSIN HCL 0.4 MG CAP PO SCH (13:39)
== END 2016-06-01 17:00 | DRG 28 ==
LOC: NEPE 18:09 → NEDA 23:18 → NEDH 05-15 03:24 → N03A 05-15 06:29 → N07B 05-23 17:30
PROVIDERS: ADMIT Hospitalist; ATTEND Hospitalist
PROC: 0J9400Z Drainage of Right Neck Subcutaneous Tissue and Fascia with Drainage Device, Open Approach (ICD-10-PCS; 2016-05-15)
PROC: 0BH17EZ Insertion of Endotracheal Airway into Trachea, Via Natural or Artificial Opening (ICD-10-PCS; 2016-05-17)
PROC: 5A1955Z Respiratory Ventilation, Greater than 96 Consecutive Hours (ICD-10-PCS; 2016-05-17)
PROC: 02HV33Z Insertion of Infusion Device into Superior Vena Cava, Percutaneous Approach (ICD-10-PCS; 2016-05-17)
PROC: 30233N1 Transfusion of Nonautologous Red Blood Cells into Peripheral Vein, Percutaneous Approach (ICD-10-PCS; 2016-05-19)
PROC: B246ZZ4 Ultrasonography of Right and Left Heart, Transesophageal (ICD-10-PCS; 2016-05-19)
PROC: 00CY0ZZ Extirpation of Matter from Lumbar Spinal Cord, Open Approach (ICD-10-PCS; principal; 2016-05-29)
PROC: 0KCG0ZZ Extirpation of Matter from Left Trunk Muscle, Open Approach (ICD-10-PCS; 2016-05-29)
DX: G06.1 Intraspinal abscess and granuloma (principal); A41.02 Sepsis due to Methicillin resistant Staphylococcus aureus; I26.90 Septic pulmonary embolism without acute cor pulmonale; I33.0 Acute and subacute infective endocarditis; G93.41 Metabolic encephalopathy; J96.01 Acute respiratory failure with hypoxia; J96.02 Acute respiratory failure with hypercapnia; J69.0 Pneumonitis due to inhalation of food and vomit; I74.9 Embolism and thrombosis of unspecified artery; R65.20 Severe sepsis without septic shock; M60.08 Infective myositis, other site; J39.0 Retropharyngeal and parapharyngeal abscess; I76 Septic arterial embolism; E44.0 Moderate protein-calorie malnutrition; I07.9 Rheumatic tricuspid valve disease, unspecified; D50.9 Iron deficiency anemia, unspecified; I10 Essential (primary) hypertension; G62.9 Polyneuropathy, unspecified; D56.9 Thalassemia, unspecified; E87.70 Fluid overload, unspecified; I07.1 Rheumatic tricuspid insufficiency; E87.6 Hypokalemia; R45.1 Restlessness and agitation; F11.10 Opioid abuse, uncomplicated; F15.10 Other stimulant abuse, uncomplicated; F17.210 Nicotine dependence, cigarettes, uncomplicated; F32.9 Major depressive disorder, single episode, unspecified; W19.XXXA Unspecified fall, initial encounter; Z88.0 Allergy status to penicillin; Z98.1 Arthrodesis status
CPT/HCPCS: 31500; 36430; 36556; 36600; 36620; 70553; 71010; 72100; 72125; 72141; 72158; 76000; 80048; 80053; 80074; 80170; 80202; 81001; 82565; 82728; 82805; 82948; 83540; 83550; 83605; 83735; 83880; 84132; 84466; 84703; 85007; 85014; 85018; 85025; 85027; 85610; 85730; 86140; 86403; 86703; 86850; 86900; 86901; 86920; 87015; 87040; 87070; 87077; 87086; 87102; 87116; 87147; 87186; 87205; 87206; 93005; 93306; 93312; 93320; 93325; 94002; 94003; 94150; 94640; 94664; 94667; 94668; 96374; 96375; A9579; J0692; J0696; J1170; J1580; J1756; J1885; J1940; J2060; J2250; J2270; J2370; J2405; J2710; J2997; J3010; J3370; J3480; J7030; J7040; J7050; J7120; P9016

== ENCOUNTER 2016-06-21 03:34 | Inpatient (IN) | payer OTHER, MEDICARE ==
[~2016-06-21] VITALS: Ht 162.6 cm; Wt 60.6 kg
[~2016-06-21 03:34] MED LIST changes: -BACI500O2 TOP; -CEPH500C PO; +CETI10 PO; +DILA8TAB4 PO; +FAMO1TAB37 PO; +FLUT50SP EACH NARE; +LACT PO; +LIDO5DIS35 TD; +METH10TA PO; +NEUR300C PO; -NORC5TAB PO; +QUET1TAB7 PO; +RIFA150C2 PO; +TAMS5CAP PO
[2016-06-21 03:37] VITALS: BP 110/64; PULSE 95; RESP 16; TEMP 98.3; O2SAT 99
--- NOTE | 2016-06-21 04:19 | PD ---
HPI Chief Complaint: Pain: Acute or Chronic Time Seen by Provider: 04:06 Travel History International Travel<30 days: No Contact w/Intl Traveler<30days: No Traveled to known affect area: No History of Present Illness HPI 45-year-old male presents to the emergency department for complaint of neck pain. Patient states she's had neck pain since at least 06/11/16. Patient states she was hospitalized in April for an epidural abscess of the neck underwent surgical procedure and was discharged to nursing facility for rehabilitation and physical therapy. Patient states she was discharged from rehabilitation 06/15/16 after completing IV antibiotics. Patient states she's been having neck pain since 11 June and this morning she awakened feeling like she could not move her neck at all. Patient feels like she's noted some swelling to the back of her neck and complains of anterior neck pain. Patient states her last dose of pain medication was at 8 PM. Patient denies any fever or chills. Patient does not report any upper extremity or lower extremity numbness tingling or weakness. Patient's had no bladder or bowel dysfunction. Patient denies IV drug use although during hospitalization April through May was identified to have history of IV drug abuse and as well as having cervical epidural abscess had tricuspid valvular vegetations by PETER for endocarditis as well as intradural lumbar abscess. Patient was discharged on vancomycin and rifampin. Patient was to complete a 12 week course of IV antibiotics from time of surgical intervention. Patient does not report any fall or injury. Patient again denies fever or chills. PFSH Past Medical History Narrative Medical COPD depression epidural abscess hypertension peripheral neuropathy tobacco use prior IV Dilaudid and methamphetamine use; nursing notes reviewed Asthma: Yes Depression: Yes Cancer: No Cardiovascular Problems: Yes COPD: Yes Diminished Hearing: No Endocrine: No Genitourinary: No Hypertension: Yes Immune Disorder: No Musculoskeletal: Yes (CHRONIC NECK AND BACK PAIN) Neurologic: Yes (neuropathy) Reproductive: No Respiratory: Yes Immunizations Current: Yes ?: Not LMP: 2 weeks ago Social History Alcohol Use: No Tobacco Use: Yes (2 ppd) Substance Use: Yes (iv dilaudid and methamphetamine) Allergies-Medications (Allergen,Severity, Reaction): Coded Allergies: Penicillin (Verified Allergy, Intermediate, Rash, 04/04/16) Has taken Keflex without any problem *MDRO Multi-Drug Resistant Organism (Verified Adverse Reaction, Unknown, ) MRSA (blood) - 05/14/16, 05/16/16, 05/18/16; (sputum) - 05/17/16 MRSA (back abscess)-05/28/16 Uncoded Allergies: chemical allergy (Allergy, Severe, anaphalactic, 09/27/12) Reported Meds & Prescriptions Reported Meds & Active Scripts Active Lidoderm Patch 12 HR (Lidocaine) 5% Patch 1 Patch TD DAILY@18 Fluticasone Nasal [place] 50 Mcg/Act Naspr 50 Mcg EACH NARE BID 50 mcg/spray Dilaudid (Hydromorphone HCl) 8 Mg Tab 8 Mg PO Q6H PRN Pepcid (Famotidine) 20 Mg Tab 20 Mg PO BID Flomax (Tamsulosin HCl) 0.4 Mg Cap 0.4 Mg PO DAILY Quetiapine (Quetiapine Fumarate) 25 Mg Tab 25 Mg PO BID Methadone (Methadone HCl) 10 Mg Tab 20 Mg PO DAILY Neurontin (Gabapentin) 300 Mg Cap 300 Mg PO TID Cetirizine (Cetirizine HCl) 10 Mg Tab 10 Mg PO DAILY Review of Systems Except as stated in HPI: all other systems reviewed are Neg General / Constitutional: No: Fever, Chills HENT: Positive: Neck Stiffness, Neck Pain, No: Congestion Cardiovascular: No: Chest Pain or Discomfort Respiratory: No: Shortness of Breath Gastrointestinal: No: Nausea, Vomiting, Abdominal Pain Genitourinary: No: Flank Pain Musculoskeletal: Positive: Myalgias, Arthralgias Skin: No Rash Neurologic: No: Weakness, Dizziness, Syncope, Focal Abnormalities, Coordination Problem Psychiatric: Positive: Anxiety, Substance Abuse Hematologic/Lymphatic: No: Lymph Node Enlargement Physical Exam Narrative GENERAL: Well-developed disheveled female in no acute distress no respiratory distress SKIN: Warm and dry. Multiple excoriated lesions over the upper extremities and lower extremities bilaterally HEAD: Atraumatic. Normocephalic. EYES: Pupils equal and round. No scleral icterus. No injection or drainage. ENT: No nasal bleeding or discharge. Mucous membranes pink and moist. NECK: Trachea midline. No JVD. Decreased range of motion secondary to pain with evidence of mild soft tissue swelling without fluctuance or induration overlying the posterior neck anterior neck shows a well-healed surgical scar without induration purulent drainage or tenderness. CARDIOVASCULAR: Regular rate and rhythm. RESPIRATORY: No accessory muscle use. Clear to auscultation. Breath sounds equal bilaterally. GASTROINTESTINAL: Abdomen soft, non-tender, nondistended. Hepatic and splenic margins not palpable. MUSCULOSKELETAL: Extremities without clubbing, cyanosis, or edema. No obvious deformities. NEUROLOGICAL: Awake and alert. No obvious cranial nerve deficits. Motor grossly within normal limits. Five out of 5 muscle strength in the arms and legs. Normal speech. Data Data Last Documented VS Vital Signs Date Time Temp Pulse Resp B/P Pulse Ox O2 Delivery O2 Flow Rate FiO2 06/21/16 03:37 98.3 95 16 110/64 99 Orders Complete Blood Count With Diff (06/21/16 04:13) Basic Metabolic Panel (Bmp) (06/21/16 04:13) Act Partial Throm Time (Ptt) (06/21/16 04:13) Prothrombin Time / Inr (Pt) (06/21/16 04:13) Blood Culture (06/21/16 04:13) Lactic Acid (06/21/16 04:13) Drug Screen, Random Urine (06/21/16 04:19) Vancomycin Inj (Vancomycin Inj) (06/21/16 04:30) Ct Cerv Spine W Iv Cont (06/21/16 ) Clindamycin Inj (Cleocin Inj) (06/21/16 04:30) Ceftriaxone Inj (Rocephin Inj) (06/21/16 04:30) Mri C Spine W&W/O Contrast (06/21/16 ) Sodium Chlor 0.9% 1000 Ml Inj (Ns 1000 M (06/21/16 04:30) Iohexol 350 Inj (Omnipaque 350 Inj) (06/21/16 05:50) Apply Cervical Collar (06/21/16 06:08) C-Reactive Protein (Crp) (06/21/16 06:57) Westergren Sedimentation Rate (06/21/16 06:57) Labs Laboratory Tests Test 06/21/16 04:38 White Blood Count 6.1 TH/MM3 Red Blood Count 3.98 MIL/MM3 Hemoglobin 8.0 GM/DL Hematocrit 24.9 % Mean Corpuscular Volume 62.7 FL Mean Corpuscular Hemoglobin 20.1 PG Mean Corpuscular Hemoglobin 32.1 % Concent Red Cell Distribution Width 24.7 % Platelet Count 371 TH/MM3 Mean Platelet Volume 8.4 FL Neutrophils (%) (Auto) 71.2 % Lymphocytes (%) (Auto) 14.9 % Monocytes (%) (Auto) 7.9 % Eosinophils (%) (Auto) 5.6 % Basophils (%) (Auto) 0.4 % Neutrophils # (Auto) 4.4 TH/MM3 Lymphocytes # (Auto) 0.9 TH/MM3 Monocytes # (Auto) 0.5 TH/MM3 Eosinophils # (Auto) 0.3 TH/MM3 Basophils # (Auto) 0.0 TH/MM3 CBC Comment AUTO DIFF Differential Comment AUTO DIFF CONFIRMED Prothrombin Time 11.9 SEC Prothromb Time International 1.1 RATIO Ratio Activated Partial 31.5 SEC Thromboplast Time Sodium Level 137 MEQ/L Potassium Level 3.5 MEQ/L Chloride Level 103 MEQ/L Carbon Dioxide Level 30.3 MEQ/L Anion Gap 4 MEQ/L Blood Urea Nitrogen 10 MG/DL Creatinine 0.61 MG/DL Estimat Glomerular Filtration 107 ML/MIN Rate Random Glucose 93 MG/DL Lactic Acid Level 0.8 mmol/L Calcium Level 9.1 MG/DL MDM Medical Decision Making Medical Screen Exam Complete: Yes Emergency Medical Condition: Yes Medical Record Reviewed: Yes Interpretation(s) CBC & BMP Diagram 06/21/16 04:38 Vital Signs Date Time Temp Pulse Resp B/P Pulse Ox O2 Delivery O2 Flow Rate FiO2 06/21/16 03:37 98.3 95 16 110/64 99 Lactic acid 0.8 not elevated Last Impressions Cervical Spine CT 06/21/16 0000 Signed Impressions: Service Date/Time: Tuesday, June 21, 2016 05:49 - CONCLUSION: 1. Osteomyelitis with resulting osteolysis of the anterior portion of the C3 vertebral body and resulting focal kyphosis. This is a new finding the prior study. 2. Anterior fusion plate at C4-C5. 3. Significant paraspinal soft tissue swelling most pronounced anteriorly. Luigi Baeza Jr., MD Differential Diagnosis Neck pain, recurrent abscess, osteomyelitis, polysubstance ingestion Narrative Course IV access obtained specimens collected and sent for resulting blood cultures obtained; patient administered IV antibiotics Imaging study ordered CT performed and patient returns from CT preliminary reading shows evidence for cervical spine fracture cervical collar applied patient queried regarding again any injury which previously denied stating her pain has been the same since the or 12 of June while she was in rehabilitation. Patient now reports that she has been unsteady on her feet and this evening while waiting for the paramedics she did slide off of a chair onto her buttock but did not hit her head or have loss of consciousness. Patient will require admission/ call to case discussed with DR Guo --admit to medicine no need for ICU/[facility] admission --keep collar in place ---will see in consultation Physician Communication Physician Communication Case discussed in detail with on-call neurosurgeon Dr. Guo is aware patient recently admitted for epidural abscess imaging study per reading identifies ostial lysis with near 50% anterior focal kyphosis is aware that this is new compared to previous study from 05/14/16 is where patient has cervical collar in place has been afebrile normal total white cell count sedimentation rate of 0.8 addition of ESR and C reactive protein pending requests patient to be admitted to medicine service will see in consultation is aware the MRI is pending states patient does not need to be admitted to the ISC/[facility] call placed to [facility] service for admission--discussed with Dr Martell Diagnosis Primary Impression: Osteomyelitis of cervical spine Additional Impression: Osteolysis Admitting Information Admitting Physician Requests: Admit Suzy Butts MD Jun 21, 2016 04:19
[2016-06-21] MEDS ORDERED: CLINDAMYCIN INJ 900 MG in SODIUM CHLORIDE 0.9% INJ 100 ML IV ONE (04:30)
[2016-06-21] MEDS ORDERED: cefTRIAXone INJ 1,000 MG in SODIUM CHLORIDE 0.9% INJ 100 ML IV ONE (04:30)
[2016-06-21] MEDS ORDERED: VANCOMYCIN INJ 1,000 MG in SODIUM CHLOR 0.9% 250 ML INJ 250 ML IV ONE (04:30)
[2016-06-21] MEDS: SODIUM CHLOR 0.9% 1000 ML INJ 1,000 ML IV SCH ×2 (04:53→22:02)
[2016-06-21 04:56] LABS: AUTOMATED NEUTROPHIL # 4.4 TH/MM3 (1.8-7.7); BASOPHIL % 0.4 % (0.0-2.0); EOSINOPHIL # 0.3 TH/MM3 (0-0.4); EOSINOPHIL % 5.6 % (0.0-4.0); HEMATOCRIT 24.9 % (35.0-46.0); LYMPH % 14.9 % (9.0-44.0); LYMPHOCYTE # 0.9 TH/MM3 (1.0-4.8); MEAN CELL VOLUME 62.7 FL (80.0-100.0); MEAN CORPUSCULAR HEMOGLOBIN 20.1 PG (27.0-34.0); MEAN CORPUSCULAR HGB CONC 32.1 % (32.0-36.0); MONO % 7.9 % (0.0-8.0); NEUT % 71.2 % (16.0-70.0); PLATELET COUNT 371 TH/MM3 (150-450); RED BLOOD COUNT 3.98 MIL/MM3 (4.00-5.30); RED CELL DISTRIBUTION WIDTH 24.7 % (11.6-17.2); WHITE BLOOD COUNT 6.1 TH/MM3 (4.0-11.0)
[2016-06-21 04:57] LABS: HEMO FLAGS AUTO DIFF
[2016-06-21 05:03] LABS: APTT (PATIENT) 31.5 SEC (24.3-30.1); INTERNATIONAL NORMALIZED RATIO 1.1 RATIO; PROTHROMBIN TIME - PATIENT 11.9 SEC (9.8-11.6)
[2016-06-21 05:18] LABS: BICARBONATE 30.3 MEQ/L (21.0-32.0); POTASSIUM 3.5 MEQ/L (3.5-5.1)
[2016-06-21] MEDS ORDERED: IOHEXOL 350 MG/ML 10 ML VIAL (for RAD DIAG) IV ONE (05:50)
[2016-06-21 06:16] LABS: SCAN/DIFF AUTO DIFF CONFIRMED
--- NOTE | 2016-06-21 06:38 | RADRPT ---
EXAM DATE/TIME: 06/21/2016 05:49 [facility] COMPARISON: CT CERVICAL SPINE W/O CONTRAST, May 14, 2016, 23:21. INDICATIONS : Neck pain; possible osteomyelitis. IV CONTRAST: 89 cc Omnipaque 350 (iohexol) IV RADIATION DOSE: 22.35 CTDIvol (mGy) MEDICAL HISTORY : Hypertension. Cardiovascular disease Chronic obstructive pulmonary disease.IV Drug abuse SURGICAL HISTORY : Fusion, cervical. ENCOUNTER: Initial ACUITY: 1 day PAIN SCALE: 7/10 LOCATION: neck TECHNIQUE: Volumetric scanning of the cervical spine was performed. Multiplanar reconstructions in the sagittal , coronal and oblique axial planes were performed. Using automated exposure control and adjustment o f the mA and/or kV according to patient size, radiation dose was kept as low as reasonably achievable to obtain optimal diagnostic quality images. FINDINGS: There has been significant change in the appearance of the cervical spine when compared to the prior study. There has been interval osteolysis of the anterior portion of the C3 vertebral body with resul ting focal kyphosis measuring nearly 50. An anterior fusion plate is again seen involving C4 and C5 with intervening bone graft device. There is considerable edema within the paraspinal soft tissues mo st pronounced anteriorly and its epicenter at the C3 level. No discrete abscess is discernible. Prior fusion at C6-C7. Central canal is patent throughout. Splaying of the spinous processes at C3-C4. CONCLUSION: 1. Osteomyelitis with resulting osteolysis of the anterior portion of the C3 vertebral body and resul ting focal kyphosis. This is a new finding the prior study. 2. Anterior fusion plate at C4-C5. 3. Significant paraspinal soft tissue swelling most pronounced anteriorly. Luigi Baeza Jr., MD on June 21, 2016 at 6:31 Board Certified Radiologist. This report was verified electronically.
[2016-06-21] MEDS ORDERED: SODIUM CHLORIDE 0.9% FLUSH 10 ML FLUSH IVF PRN (08:15)
[2016-06-21] MEDS ORDERED: Vancomycin Consult Pharmacy 1 EA OTHER SCH (08:15)
[2016-06-21] MEDS: SODIUM CHLORIDE 0.9% FLUSH 10 ML FLUSH IV FLUSH SCH ×2 (08:52→22:22)
[2016-06-21] MEDS ORDERED: ACETAMINOPHEN 325 MG TAB PO PRN (09:00)
[2016-06-21] MEDS ORDERED: GADODIAMIDE PF 287 MG/ML 20 ML VIAL (for RAD MRI) IV ONE (09:21)
--- NOTE | 2016-06-21 10:15 | RADRPT ---
EXAM DATE/TIME: 06/21/2016 09:07 [place] COMPARISON: CT CERVICAL SPINE W CONTRAST, June 21, 2016, 5:49. INDICATIONS : Osteomyelitis. H/O cervical fusion. CONTRAST: 13 cc Omniscan (gadodiamide) IV MEDICAL HISTORY : Chronic obstructive pulmonary disease. Cardiovascular disease SURGICAL HISTORY : Fusion, cervical. Cervical abcess. ENCOUNTER: Sequela ACUITY: 2 months PAIN SCORE: 4/10 LOCATION: [facility] TECHNIQUE: Multiplanar, multisequence MRI examination of the cervical spine was performed. FINDINGS: This is a significantly abnormal exam. There is improved alignment of the cervical spine as compared to the prior CT which demonstrated abrupt angulation at the C2/C3 level. There is a persistent kyphos is of the cervical spine from C3-C6. Anterior to the cervical spine fusion hardware metallic suscepti bility artifact is seen at the level of C4/C5. There is a large amount of anterior soft tissue edema and enhancement of the soft tissues and widenin g of the pre-vertebral soft tissues from the level of C2 through the superior endplate of C7. There a re no discrete enhancing fluid collection to suggest localized abscess. There is enhancement of the marrow focally identified within the anterior aspect of the C3 vertebral body at the site of prior noted osseous destruction consistent with focal area of osteomyelitis. There is enhancement of the soft tissues along the posterior longitudinal ligament seen on the sagitt al T1 post contrast imaging and although this causes mild mass effect upon the thecal sac there is no evidence of significant cord compression. The cord maintains normal morphology and signal throughout. CONCLUSION: There is a long segment of confluent soft tissue prominence and enhancement adjacent to the postoperative cervical spine consistent with infection. No discrete fluid collections are note d. Areas of abnormal marrow signal seen within the C3 vertebral body concerning for focal areas of os teomyelitis. There is enhancement and prominence of the posterior longitudinal ligament which causes mild mass effect upon the adjacent thecal sac without evidence of cord compression. No evidence of co rd infarction or other signal abnormality. Shana Mcknight MD on June 21, 2016 at 10:02 Board Certified Radiologist. This report was verified electronically.
[2016-06-21 10:18] VITALS: BP 118/64; PULSE 71; RESP 18; O2SAT 98
--- NOTE | 2016-06-21 11:24 | HHI.HP ---
[facility] Service [facility] Primary Care Physician Veronique Welsh MD Admission Diagnosis C-3 osteomyelitis with osteolysis; h/o epidural abscess Diagnoses: (1) Osteomyelitis of cervical spine Diagnosis: Principal Chief Complaint: neck pain Travel History International Travel<30 Days: No Contact w/Intl Traveler <30 Da: No Traveled to Known Affected Are: No History of Present Illness patient is a 45 y/o female who presented to ER with worsening neck pain. she was admitted to this hospital about last month with MRSA bacteremia, cervical prevertebral, lumbar epidural abscess and endocarditis. she underwent I/D of the abscesses and discharged to rehab with IV Vancomycin. she says that she went home from rehab last week and since then she's been having worsening neck pain. she has some tingling of both hands and feet. she had some night sweats but there's no definite report of fevers at home. Review of Systems Constitutional: DENIES: Fever, Weight loss, Chills, Night Sweats Eyes: DENIES: Blurred vision, Diplopia, Vision loss, Double Vision Ears, nose, mouth, throat: DENIES: Tinnitus, Vertigo, Throat pain, Epistaxis Respiratory: DENIES: Apneas, Cough, Snoring, Wheezing, Hemoptysis, Sputum production, Shortness of breath Cardiovascular: DENIES: Chest pain, Palpitations, Syncope, Dyspnea on Exertion , PND, Lower Extremity Edema, Orthopnea, Claudication Gastrointestinal: DENIES: Abdominal pain, Black stools, Bloody stools, Constipation, Diarrhea, Nausea, Vomiting, Difficulty Swallowing, Anorexia Genitourinary: DENIES: Urinary frequency, Urgency, Hematuria, Dysuria Musculoskeletal: COMPLAINS OF: Neck pain, DENIES: Joint pain, Muscle aches, Stiffness, Joint Swelling Integumentary: DENIES: Rash Neurologic: DENIES: Abnormal gait, Headache, Localized weakness, Paresthesias, Seizures, Speech Problems, Tremor, Poor Balance Psychiatric: DENIES: Anxiety, Confusion, Mood changes, Depression, Hallucinations, Agitation, Suicidal Ideation, Homicidal Ideation, Delusions Past Family Social History Past Medical History cervical and lumbar abscess endocarditis Past Surgical History cervical and lumbar spine surgeries. Reported Medications Lidoderm Patch 12 HR (Lidocaine) 5% Patch 1 Patch TD DAILY@18 Fluticasone Nasal [place] 50 Mcg/Act Naspr 50 Mcg EACH NARE BID 50 mcg/spray Dilaudid (Hydromorphone HCl) 8 Mg Tab 8 Mg PO Q6H PRN Pepcid (Famotidine) 20 Mg Tab 20 Mg PO BID Flomax (Tamsulosin HCl) 0.4 Mg Cap 0.4 Mg PO DAILY Quetiapine (Quetiapine Fumarate) 25 Mg Tab 25 Mg PO BID Methadone (Methadone HCl) 10 Mg Tab 20 Mg PO DAILY Neurontin (Gabapentin) 300 Mg Cap 300 Mg PO TID Cetirizine (Cetirizine HCl) 10 Mg Tab 10 Mg PO DAILY Allergies: Coded Allergies: Penicillin (Verified Allergy, Intermediate, Rash, 06/21/16) Has taken Keflex without any problem *MDRO Multi-Drug Resistant Organism (Verified Adverse Reaction, Unknown, ) MRSA (blood) - 05/14/16, 05/16/16, 05/18/16; (sputum) - 05/17/16 MRSA (back abscess)-05/28/16 Uncoded Allergies: chemical allergy (Allergy, Severe, anaphalactic, 09/27/12) Active Ordered Medications Current Medications Vancomycin HCl 1000 mg/Sodium Chloride 250 ml @ 250 mls/hr ONCE ONCE IV Last administered on 06/21/16 04:54; Start 06/21/16 at 04:30; Stop 06/21/16 at 05:29 ; Status DC Clindamycin Phosphate 900 mg/ Sodium Chloride 106 ml @ 212 mls/hr ONCE ONCE IV Last administered on 06/21/16 05:11; Start 06/21/16 at 04:30; Stop at 04:59; Status DC Ceftriaxone Sodium 1000 mg/ Sodium Chloride 100 ml @ 200 mls/hr ONCE ONCE IV Last administered on 06/21/16 04:53; Start 06/21/16 at 04:30; Stop 06/21/16 at 04:59; Status DC Sodium Chloride (NS 1000 ml Inj) 1,000 ml @ 100 mls/hr Q10H IV Last administered on 06/21/16 04:53; Start 06/21/16 at 04:30 Iohexol (Omnipaque 350 Inj) 89 ml STK-MED ONCE IV Last administered on 05:50; Start 06/21/16 at 05:50; Stop 06/21/16 at 05:51; Status DC Sodium Chloride (NS Flush) 2 ml BID IV FLUSH ; Start 06/21/16 at 09:00 Sodium Chloride 2 ml 2 ml UNSCH PRN IVF FLUSH AFTER USING IV ACCESS; Start at 08:15 Pharmacy Profile Note 0 ml @ 0 mls/hr UNSCH OTHER ; Start 06/21/16 at 08:15 Ceftriaxone Sodium/Sodium Chloride (Rocephin Inj/NS Inj) 100 ml @ 200 mls/hr Q24H IV ; Start 06/22/16 at 06:00 Acetaminophen/ Hydrocodone Bitart ([place] 5-325 Mg) 1 tab Q4H PRN PO PAIN 3-6; Start 06/21/16 at 09:00 Acetaminophen/ Hydrocodone Bitart ([place] 5-325 Mg) 2 tab Q4H PRN PO PAIN 7-10 ; Start 06/21/16 at 09:00 Hydromorphone HCl (Dilaudid Pf Inj) 1 mg Q4H PRN IV PUSH BREAKTHROUGH PAIN; Start 06/21/16 at 09:00 Acetaminophen 650 mg 650 mg Q4H PRN PO FEVER/ PAIN 1-2; Start 06/21/16 at 09:00 Vancomycin HCl/ Sodium Chloride (Vancomycin Inj/ NS 250 ml Inj) 250 ml @ 250 mls/hr Q8H IV ; Start 06/21/16 at 13:00 Miscellaneous Information SPECIFIC LAB TO BE ... ONCE ONCE XX ; Start at 04:45; Stop 06/22/16 at 04:46 Gadodiamide (Omniscan Pf Inj) 13 ml STK-MED ONCE IV Last administered on 09:21; Start 06/21/16 at 09:21; Stop 06/21/16 at 09:22; Status DC Family History lung cancer in mother. Social History smokes three cigarettes a day.doesn't drink.history of drug abuse in the past. Physical Exam Vital Signs Vital Signs Date Time Temp Pulse Resp B/P Pulse Ox O2 Delivery O2 Flow Rate FiO2 06/21/16 10:19 71 18 06/21/16 10:18 71 18 118/64 98 Room Air 06/21/16 03:37 98.3 95 16 110/64 99 Physical Exam GENERAL: This is a well-nourished, well-developed patient, in no apparent distress. SKIN: No rashes, ecchymoses or lesions. Cool and dry. HEAD: Atraumatic. Normocephalic. No temporal or scalp tenderness. EYES: Pupils equal round and reactive. Extraocular motions intact. No scleral icterus. No injection or drainage. ENT: Nose without bleeding, purulent drainage or septal hematoma. Throat without erythema, tonsillar hypertrophy or exudate. Uvula midline. Airway patent. NECK:in cervical collar CARDIOVASCULAR: Regular rate and rhythm without murmurs, gallops, or rubs. RESPIRATORY: Clear to auscultation. Breath sounds equal bilaterally. No wheezes , rales, or rhonchi. GASTROINTESTINAL: Abdomen soft, non-tender, nondistended. No hepato-splenomegaly , or palpable masses. No guarding. MUSCULOSKELETAL: Extremities without clubbing, cyanosis, or edema. No joint tenderness, effusion, or edema noted. No calf tenderness. Negative Homans sign bilaterally. NEUROLOGICAL: Awake and alert. Cranial nerves II through XII intact. Motor and sensory grossly within normal limits. Five out of 5 muscle strength in all muscle groups. Normal speech. Laboratory Laboratory Tests Test 06/21/16 04:38 White Blood Count 6.1 Red Blood Count 3.98 Hemoglobin 8.0 Hematocrit 24.9 Mean Corpuscular Volume 62.7 Mean Corpuscular Hemoglobin 20.1 Mean Corpuscular Hemoglobin 32.1 Concent Red Cell Distribution Width 24.7 Platelet Count 371 Mean Platelet Volume 8.4 Neutrophils (%) (Auto) 71.2 Lymphocytes (%) (Auto) 14.9 Monocytes (%) (Auto) 7.9 Eosinophils (%) (Auto) 5.6 Basophils (%) (Auto) 0.4 Neutrophils # (Auto) 4.4 Lymphocytes # (Auto) 0.9 Monocytes # (Auto) 0.5 Eosinophils # (Auto) 0.3 Basophils # (Auto) 0.0 CBC Comment AUTO DIFF Differential Comment AUTO DIFF CONFIRMED Erythrocyte Sedimentation Rate GREATER THAN 140 Prothrombin Time 11.9 Prothromb Time International 1.1 Ratio Activated Partial 31.5 Thromboplast Time Sodium Level 137 Potassium Level 3.5 Chloride Level 103 Carbon Dioxide Level 30.3 Anion Gap 4 Blood Urea Nitrogen 10 Creatinine 0.61 Estimat Glomerular Filtration 107 Rate Random Glucose 93 Lactic Acid Level 0.8 Calcium Level 9.1 C-Reactive Protein 7.30 Date/Time Procedure Status Source Growth 06/21/16 04:40 Aerobic Blood Culture Received Blood Peripheral Pending 06/21/16 04:40 Anaerobic Blood Culture Received Blood Peripheral Pending Result Diagram: 06/21/168 06/21/16 0438 Imaging Last Impressions Cervical Spine MRI 06/21/16 0000 Signed Impressions: Service Date/Time: Tuesday, June 21, 2016 09:07 - CONCLUSION: There is a long segment of confluent soft tissue prominence and enhancement adjacent to the postoperative cervical spine consistent with infection. No discrete fluid collections are noted. Areas of abnormal marrow signal seen within the C3 vertebral body concerning for focal areas of osteomyelitis. There is enhancement and prominence of the posterior longitudinal ligament which causes mild mass effect upon the adjacent thecal sac without evidence of cord compression. No evidence of cord infarction or other signal abnormality. Shana Mcknight MD Cervical Spine CT 06/21/16 0000 Signed Impressions: Service Date/Time: Tuesday, June 21, 2016 05:49 - CONCLUSION: 1. Osteomyelitis with resulting osteolysis of the anterior portion of the C3 vertebral body and resulting focal kyphosis. This is a new finding the prior study. 2. Anterior fusion plate at C4-C5. 3. Significant paraspinal soft tissue swelling most pronounced anteriorly. Luigi Baeza Jr., MD Assessment and Plan Assessment and Plan A/P - osteomyelitis of the cervical spine MRI of the cervical spine with a long segment of confluent soft tissue prominence and enhancement adjacent to the postoperative cervical spine consistent with infection with no discrete fluid collections. ESR > 140. continue with IV Vanco and Rocephin- blood cultures obtained- will consult neurosurgery and ID. continue with pain control. - history of cervical prevertebral abscess/ lumbar spine epidural and intradural abscess - s/p I/D few weeks ago continue Abx as noted above -history of MRSA bacteremia and tricuspid endocarditis ( last admission; last month) continue IV Abx -anemia of chronic disease- will monitor. -DVT prophylaxis with SCD's- Discussed Condition With ER physician and the patient. Physician Certification 2 Midnight Certification Type: Admission for Inpatient Services Order for Inpatient Services The services are ordered in accordance with Medicare regulations or non- Medicare payer requirements, as applicable. In the case of services not specified as inpatient-only, they are appropriately provided as inpatient services in accordance with the 2-midnight benchmark. Estimated LOS (days): 3 days is the estimated time the patient will need to remain in the hospital, assuming treatment plan goals are met and no additional complications. Post-Hospital Plan: Not yet determined Fidelia Stratton MD Jun 21, 2016 11:24
[2016-06-21] MEDS ORDERED: MAGNESIUM HYDROXIDE SUSP 30 ML CUP PO PRN (12:00)
[2016-06-21] MEDS ORDERED: DOCUSATE SODIUM 100 MG/10 ML UDC PO PRN (12:00)
[2016-06-21 12:16] VITALS: BP 121/69; PULSE 64; RESP 18; TEMP 97.5; O2SAT 100
[2016-06-21] MEDS: VANCOMYCIN 1,000 MG/NS 250 ML IV SCH ×4 (12:31→22:08)
[2016-06-21] MEDS: ACETAMINOPHEN/HYDROcodone 325 MG/5 MG TAB PO PRN ×3 (12:31→22:00)
--- NOTE | 2016-06-21 15:16 | PD.CONS ---
History of Present Illness Service Neurosurgery Consult Requested By Reason for Consult Cervical fracture Primary Care Physician Veronique Welsh MD Diagnoses: History of Present Illness Ms Rock is a 45-year-old female with a history of IVDA and cervical abscess who presents to the emergency department for complaints of increasing neck pain. She has a history of cervical spondylosis for which she previously had an anterior cervical fusion. In April she presented with an epidural abscess to the lumbar and cervical spine requiring emergent evacuation. The Gram stain showed evidence of MRSA infection. She was discharged to rehabilitation with plans for a 12 week course of IV vancomycin and rifampin. Within the past week, the patient complains of increasing neck pain and increasing swallowing difficulties for 24 hours. Due to the acute increase in symptoms, she was referred to the [place] ED for further evaluation. Her cervical spine CT shows evidence of increasing kyphosis of the C3 vertebral body. Neurosurgery has been consulted for a surgical opinion. She currently denies any weakness to arms or legs. She denies any bowel or bladder dysfunction. Review of Systems Constitutional: COMPLAINS OF: Change in appetite, DENIES: Fever, Weight loss Except as stated in HPI: all other systems reviewed are Neg Past Family Social History Allergies: Coded Allergies: Penicillin (Verified Allergy, Intermediate, Rash, 06/21/16) Has taken Keflex without any problem *MDRO Multi-Drug Resistant Organism (Verified Adverse Reaction, Unknown, ) MRSA (blood) - 05/14/16, 05/16/16, 05/18/16; (sputum) - 05/17/16 MRSA (back abscess)-05/28/16 Uncoded Allergies: chemical allergy (Allergy, Severe, anaphalactic, 09/27/12) Past Medical History IV drug use MRSA Epidural abscess Past Surgical History Cervical and lumbar evacuation of epidural abscess Active Ordered Medications Allergies Coded Allergies Type Severity Reaction Last Updated Verified Penicillin Allergy Intermediate Rash 06/21/16 Yes *MDRO Multi-Drug Resistant Organism Adverse Reaction Unknown 06/21/16 Yes Uncoded Allergies Type Severity Reaction Last Updated Verified chemical allergy Allergy Severe anaphalactic 09/27/12 Recent Impressions Cervical Spine MRI 06/21/16 0000 Signed Impressions: Service Date/Time: Thursday, June 21, 2016 09:07 - CONCLUSION: There is a long segment of confluent soft tissue prominence and enhancement adjacent to the postoperative cervical spine consistent with infection. No discrete fluid collections are noted. Areas of abnormal marrow signal seen within the C3 vertebral body concerning for focal areas of osteomyelitis. There is enhancement and prominence of the posterior longitudinal ligament which causes mild mass effect upon the adjacent thecal sac without evidence of cord compression. No evidence of cord infarction or other signal abnormality. Shana Mcknight MD Cervical Spine CT 06/21/16 0000 Signed Impressions: Service Date/Time: Tuesday, June 21, 2016 05:49 - CONCLUSION: 1. Osteomyelitis with resulting osteolysis of the anterior portion of the C3 vertebral body and resulting focal kyphosis. This is a new finding the prior study. 2. Anterior fusion plate at C4-C5. 3. Significant paraspinal soft tissue swelling most pronounced anteriorly. Luigi Baeza Jr., MD Laboratory Tests Test 06/21/16 04:38 White Blood Count 6.1 TH/MM3 Red Blood Count 3.98 MIL/MM3 Hemoglobin 8.0 GM/DL Hematocrit 24.9 % Mean Corpuscular Volume 62.7 FL Mean Corpuscular Hemoglobin 20.1 PG Mean Corpuscular Hemoglobin 32.1 % Concent Red Cell Distribution Width 24.7 % Platelet Count 371 TH/MM3 Mean Platelet Volume 8.4 FL Neutrophils (%) (Auto) 71.2 % Lymphocytes (%) (Auto) 14.9 % Monocytes (%) (Auto) 7.9 % Eosinophils (%) (Auto) 5.6 % Basophils (%) (Auto) 0.4 % Neutrophils # (Auto) 4.4 TH/MM3 Lymphocytes # (Auto) 0.9 TH/MM3 Monocytes # (Auto) 0.5 TH/MM3 Eosinophils # (Auto) 0.3 TH/MM3 Basophils # (Auto) 0.0 TH/MM3 CBC Comment AUTO DIFF Differential Comment AUTO DIFF CONFIRMED Erythrocyte Sedimentation Rate GREATER THAN 140 mm/hr Prothrombin Time 11.9 SEC Prothromb Time International 1.1 RATIO Ratio Activated Partial 31.5 SEC Thromboplast Time Sodium Level 137 MEQ/L Potassium Level 3.5 MEQ/L Chloride Level 103 MEQ/L Carbon Dioxide Level 30.3 MEQ/L Anion Gap 4 MEQ/L Blood Urea Nitrogen 10 MG/DL Creatinine 0.61 MG/DL Estimat Glomerular Filtration 107 ML/MIN Rate Random Glucose 93 MG/DL Lactic Acid Level 0.8 mmol/L Calcium Level 9.1 MG/DL C-Reactive Protein 7.30 MG/DL Procedure Category Date Status Time Complete Blood Count LAB 06/21/16 Complete With Diff 04:13 Basic Metabolic Panel LAB 06/21/16 Complete (Bmp) 04:13 Act Partial Throm LAB 06/21/16 Complete Time (Ptt) 04:13 Prothrombin Time / LAB 06/21/16 Complete Inr (Pt) 04:13 Blood Culture MARIA ESTHER 06/21/16 In Process 04:13 Lactic Acid LAB 06/21/16 Complete 04:13 Drug Screen, Random LAB 06/21/16 In Process Urine 04:19 Vancomycin Inj MED 06/21/16 Complete (Vancomycin Inj) 04:30 Ct Cerv Spine W Iv RADCT 06/21/16 Resulted Cont Clindamycin Inj MED 06/21/16 Complete (Cleocin Inj) 04:30 Ceftriaxone Inj MED 06/21/16 Complete (Rocephin Inj) 04:30 Mri C Spine W&W/O RADMR 06/21/16 Resulted Contrast Sodium Chlor 0.9% MED 06/21/16 In Process 1000 Ml Inj (Ns 1000 M 04:30 Iohexol 350 Inj MED 06/21/16 Complete (Omnipaque 350 Inj) 05:50 Apply Cervical Collar [place] 06/21/16 Transmitted 06:08 C-Reactive Protein LAB 06/21/16 Complete (Crp) 06:57 Westergren LAB 06/21/16 Complete Sedimentation Rate 06:57 Admit Order (Ed Use ADMITTING 06/21/16 Transmitted Only) ^ Saline Lock LISANDRO 06/21/16 In Process 08:01 Resp Oxygen Sachin C RSP 06/21/16 Logged Titrat 1-4 L ^ Notify Dr: Other LISANDRO 06/21/16 In Process 08:01 Sodium Chloride 0.9% MED 06/21/16 In Process Flush (Ns Flush) 09:00 Sodium Chloride 0.9% MED 06/21/16 In Process Flush (Ns Flush) 08:15 Consult Neurosurgery CONS 06/21/16 Transmitted 08:01 Diet Regular Basic DIET 06/21/16 Transmitted Breakfast Vital Signs (Adult) LISANDRO 06/21/16 In Process 08:05 Scd Bilateral/Knee LISANDRO 06/21/16 In Process High 08:05 Consult Infectious CONS 06/21/16 Transmitted Disease Vancomycin Consult MED 06/21/16 In Process Pharmacy (Vancomycin 08:15 Ceftriaxone Inj MED 06/22/16 In Process (Rocephin Inj) 06:00 Acetamin-Hydrocod MED 06/21/16 In Process 325-5 Mg ([place] 5-325 09:00 Acetamin-Hydrocod MED 06/21/16 In Process 325-5 Mg ([place] 5-325 09:00 Hydromorphone Pf Inj MED 06/21/16 In Process (Dilaudid Pf Inj) 09:00 Acetaminophen MED 06/21/16 In Process (Tylenol) 09:00 (Hub Use Only)Inp Phy CONS 06/21/16 Transmitted Cons/Ref (Hub Use Only)Inp Phy CONS 06/21/16 Transmitted Cons/Ref Vancomycin Inj MED 06/21/16 In Process (Vancomycin Inj) 13:00 Misc. Nursing MED 06/22/16 In Process Information 04:45 Vancomycin Trough LAB 06/22/16 Verified 04:45 Gadodiamide Pf Inj MED 06/21/16 Complete (Omniscan Pf Inj) 09:21 Consult Infectious CONS 06/21/16 Transmitted Disease Tamsulosin (Flomax) MED 06/22/16 In Process 09:00 (Hub Use Only)Inp Phy CONS 06/21/16 Transmitted Cons/Ref Magnesium Hydroxide MED 06/21/16 In Process Liq (Milk Of Magnesi 12:00 Docusate Sodium Liq MED 06/21/16 In Process (Colace Liq) 12:00 Collar Guinda ORTHO 06/21/16 Complete Vital Signs Date Time Temp Pulse Resp B/P Pulse Ox O2 Delivery O2 Flow Rate FiO2 06/21/16 12:16 97.5 64 18 121/69 100 06/21/16 10:19 71 18 06/21/16 10:18 71 18 118/64 98 Room Air 06/21/16 03:37 98.3 95 16 110/64 99 Family History Noncontributory Social History IVDA Physical Exam Vital Signs Vital Signs Date Time Temp Pulse Resp B/P Pulse Ox O2 Delivery O2 Flow Rate FiO2 06/21/16 12:16 97.5 64 18 121/69 100 06/21/16 10:19 71 18 06/21/16 10:18 71 18 118/64 98 Room Air 06/21/16 03:37 98.3 95 16 110/64 99 Physical Exam Gen: Patient appears cachectic. She is in mild distress HEENT: Normocephalic, pupils equally round and reactive to light, extraocular motors are intact, neck is supple, trachea is midline, no carotid bruits appreciable. Tenderness to palpation to the posterior cervical spine CV: Regular rate and rhythm Pulm: Clear to auscultation bilaterally GI: Abdomen is soft, nontender, nondistended Ext: No edema Integument: intact Neuro: Alert and oriented 3 CN II-XII grossly intact, no nystagmus Motor (R/L): Shoulder abduction 4/5 Elbow flexion 4+/5 Elbow extension 5/5 Hand hrbp 5/5 Hand intrinsics 5/5 Hip flexion 5/5 Knee extension 5/5 Knee flexion 5/5 Ankle dorsiflexion 5/5 Ankle plantarflexion 5/5 Sensation: Intact to light touch throughout DTR: 2+ patella, Ajith's reflex negative, no clonus at the ankles Laboratory Laboratory Tests Test 06/21/16 04:38 White Blood Count 6.1 Red Blood Count 3.98 Hemoglobin 8.0 Hematocrit 24.9 Mean Corpuscular Volume 62.7 Mean Corpuscular Hemoglobin 20.1 Mean Corpuscular Hemoglobin 32.1 Concent Red Cell Distribution Width 24.7 Platelet Count 371 Mean Platelet Volume 8.4 Neutrophils (%) (Auto) 71.2 Lymphocytes (%) (Auto) 14.9 Monocytes (%) (Auto) 7.9 Eosinophils (%) (Auto) 5.6 Basophils (%) (Auto) 0.4 Neutrophils # (Auto) 4.4 Lymphocytes # (Auto) 0.9 Monocytes # (Auto) 0.5 Eosinophils # (Auto) 0.3 Basophils # (Auto) 0.0 CBC Comment AUTO DIFF Differential Comment AUTO DIFF CONFIRMED Erythrocyte Sedimentation Rate GREATER THAN 140 Prothrombin Time 11.9 Prothromb Time International 1.1 Ratio Activated Partial 31.5 Thromboplast Time Sodium Level 137 Potassium Level 3.5 Chloride Level 103 Carbon Dioxide Level 30.3 Anion Gap 4 Blood Urea Nitrogen 10 Creatinine 0.61 Estimat Glomerular Filtration 107 Rate Random Glucose 93 Lactic Acid Level 0.8 Calcium Level 9.1 C-Reactive Protein 7.30 Date/Time Procedure Status Source Growth 06/21/16 04:40 Aerobic Blood Culture Received Blood Peripheral Pending 06/21/16 04:40 Anaerobic Blood Culture Received Blood Peripheral Pending Result Diagram: 06/21/168 06/21/168 Imaging Last 48 hours Impressions Cervical Spine MRI 06/21/16 0000 Signed Impressions: Service Date/Time: Tuesday, June 21, 2016 09:07 - CONCLUSION: There is a long segment of confluent soft tissue prominence and enhancement adjacent to the postoperative cervical spine consistent with infection. No discrete fluid collections are noted. Areas of abnormal marrow signal seen within the C3 vertebral body concerning for focal areas of osteomyelitis. There is enhancement and prominence of the posterior longitudinal ligament which causes mild mass effect upon the adjacent thecal sac without evidence of cord compression. No evidence of cord infarction or other signal abnormality. Shana Mcknight MD Cervical Spine CT 06/21/16 0000 Signed Impressions: Service Date/Time: Tuesday, June 21, 2016 05:49 - CONCLUSION: 1. Osteomyelitis with resulting osteolysis of the anterior portion of the C3 vertebral body and resulting focal kyphosis. This is a new finding the prior study. 2. Anterior fusion plate at C4-C5. 3. Significant paraspinal soft tissue swelling most pronounced anteriorly. Luigi Baeza Jr., MD Assessment and Plan Assessment and Plan Ms Rock is a 45-year-old female with a history of depression, IV drug abuse, MRSA spinal abscess status post surgical evacuation. She now presents a kyphotic deformity without particular weakness but no evidence of myelopathy. Her CT shows evidence of osteomyelitis involving the cervical spine with subsidence of the C3 vertebral body. Her MRI shows evidence of enhancement within the epidural space and the paravertebral tissue. This may represent abscess versus phlegmon with inflammatory changes. Neuro: Cervical spine epidural abscess, osteomyelitis, vertebral compression fracture with cervical spinal instability. Continue [place] collar. Patient will need to complete antibiotics course prior to consideration of surgical correction of deformity. We will consider surgical intervention if patient demonstrates evidence of worsening spinal instability or myelopathy CV/chronic anemia: Keep normotensive Pulm: Good O2 saturation on room air GI: PPI prophylaxis : Good urine output FEN: Replete electrolyte per protocol No evidence of dysphagia. Advance diet as tolerated Integument: Wound intact ID: MRSA epidural abscess, and osteomyelitis. ESR>140 and CRP>7.5 shows that infection is not adequately controlled In the setting of spinal hardware, patient will require minimum of 12 weeks of antibiotic and will continue until ESR and CRP normalize. She may require chronic suppressive antibiotics Resume vancomycin, rifampin Check vancomycin trough Pain: Moderate pain secondary to kyphosis Morphine/Lortab prn Activity: OOB as tolerated DVT prophylaxis: SCD, Heparin Disposition: admit to Medicine service. Neurosurgery will continue to follow Hector Guo MD Jun 21, 2016 15:16 Substance Use: Yes (iv dilaudid and methamphetamine) Allergies-Medications Allergies-Medications (Allergen,Severity, Reaction): Coded Allergies: Penicillin (Verified Allergy, Intermediate, Rash, 04/04/16) Has taken Keflex without any problem *MDRO Multi-Drug Resistant Organism (Verified Adverse Reaction, Unknown, ) MRSA (blood) - 05/14/16, 05/16/16, 05/18/16; (sputum) - 05/17/16 MRSA (back abscess)-05/28/16 Uncoded Allergies: chemical allergy (Allergy, Severe, anaphalactic, 09/27/12) Reported Meds & Prescriptions Reported Meds & Active Scripts Active Lidoderm Patch 12 HR (Lidocaine) 5% Patch 1 Patch TD DAILY@18 Fluticasone Nasal Sylva 50 Mcg/Act Naspr 50 Mcg EACH NARE BID 50 mcg/spray Dilaudid (Hydromorphone HCl) 8 Mg Tab 8 Mg PO Q6H PRN Pepcid (Famotidine) 20 Mg Tab 20 Mg PO BID Flomax (Tamsulosin HCl) 0.4 Mg Cap 0.4 Mg PO DAILY Quetiapine (Quetiapine Fumarate) 25 Mg Tab 25 Mg PO BID Methadone (Methadone HCl) 10 Mg Tab 20 Mg PO DAILY Neurontin (Gabapentin) 300 Mg Cap 300 Mg PO TID Cetirizine (Cetirizine HCl) 10 Mg Tab 10 Mg PO DAILY ROS Review of Systems Except as stated in HPI: all other systems reviewed are Neg General / Constitutional: No: Fever, Chills HENT: Positive: Neck Stiffness, Neck Pain, No: Congestion Cardiovascular: No: Chest Pain or Discomfort Respiratory: No: Shortness of Breath Gastrointestinal: No: Nausea, Vomiting, Abdominal Pain Genitourinary: No: Flank Pain Musculoskeletal: Positive: Myalgias, Arthralgias Skin: No Rash Neurologic: No: Weakness, Dizziness, Syncope, Focal Abnormalities, Coordination Problem Psychiatric: Positive: Anxiety, Substance Abuse Hematologic/Lymphatic: No: Lymph Node Enlargement Physical Exam Physical Exam Narrative GENERAL: Well-developed disheveled female in no acute distress no respiratory distress SKIN: Warm and dry. Multiple excoriated lesions over the upper extremities and lower extremities bilaterally HEAD: Atraumatic. Normocephalic. EYES: Pupils equal and round. No scleral icterus. No injection or drainage. ENT: No nasal bleeding or discharge. Mucous membranes pink and moist. NECK: Trachea midline. No JVD. Decreased range of motion secondary to pain with evidence of mild soft tissue swelling without fluctuance or induration overlying the posterior neck anterior neck shows a well-healed surgical scar without induration purulent drainage or tenderness. CARDIOVASCULAR: Regular rate and rhythm. RESPIRATORY: No accessory muscle use. Clear to auscultation. Breath sounds equal bilaterally. GASTROINTESTINAL: Abdomen soft, non-tender, nondistended. Hepatic and splenic margins not palpable. MUSCULOSKELETAL: Extremities without clubbing, cyanosis, or edema. No obvious deformities. NEUROLOGICAL: Awake and alert. No obvious cranial nerve deficits. Motor grossly within normal limits. Five out of 5 muscle strength in the arms and legs. Normal speech. Data Data Data Last Documented VS Vital Signs Date Time Temp Pulse Resp B/P Pulse Ox O2 Delivery O2 Flow Rate FiO2 06/21/16 03:37 98.3 95 16 110/64 99 Orders Complete Blood Count With Diff (06/21/16 04:13) Basic Metabolic Panel (Bmp) (06/21/16 04:13) Act Partial Throm Time (Ptt) (06/21/16 04:13) Prothrombin Time / Inr (Pt) (06/21/16 04:13) Blood Culture (06/21/16 04:13) Lactic Acid (06/21/16 04:13) Drug Screen, Random Urine (06/21/16 04:19) Vancomycin Inj (Vancomycin Inj) (06/21/16 04:30) Ct Cerv Spine W Iv Cont (06/21/16 ) Clindamycin Inj (Cleocin Inj) (06/21/16 04:30) Ceftriaxone Inj (Rocephin Inj) (06/21/16 04:30) Mri C Spine W&W/O Contrast (06/21/16 ) Sodium Chlor 0.9% 1000 Ml Inj (Ns 1000 M (06/21/16 04:30) Iohexol 350 Inj (Omnipaque 350 Inj) (06/21/16 05:50) Apply Cervical Collar (06/21/16 06:08) C-Reactive Protein (Crp) (06/21/16 06:57) Westergren Sedimentation Rate (06/21/16 06:57) Labs Laboratory Tests Test 06/21/16 04:38 White Blood Count 6.1 TH/MM3 Red Blood Count 3.98 MIL/MM3 Hemoglobin 8.0 GM/DL Hematocrit 24.9 % Mean Corpuscular Volume 62.7 FL Mean Corpuscular Hemoglobin 20.1 PG Mean Corpuscular Hemoglobin 32.1 % Concent Red Cell Distribution Width 24.7 % Platelet Count 371 TH/MM3 Mean Platelet Volume 8.4 FL Neutrophils (%) (Auto) 71.2 % Lymphocytes (%) (Auto) 14.9 % Monocytes (%) (Auto) 7.9 % Eosinophils (%) (Auto) 5.6 % Basophils (%) (Auto) 0.4 % Neutrophils # (Auto) 4.4 TH/MM3 Lymphocytes # (Auto) 0.9 TH/MM3 Monocytes # (Auto) 0.5 TH/MM3 Eosinophils # (Auto) 0.3 TH/MM3 Basophils # (Auto) 0.0 TH/MM3 CBC Comment AUTO DIFF Differential Comment AUTO DIFF CONFIRMED Prothrombin Time 11.9 SEC Prothromb Time International 1.1 RATIO Ratio Activated Partial 31.5 SEC Thromboplast Time Sodium Level 137 MEQ/L Potassium Level 3.5 MEQ/L Chloride Level 103 MEQ/L Carbon Dioxide Level 30.3 MEQ/L Anion Gap 4 MEQ/L Blood Urea Nitrogen 10 MG/DL Creatinine 0.61 MG/DL Estimat Glomerular Filtration 107 ML/MIN Rate Random Glucose 93 MG/DL Lactic Acid Level 0.8 mmol/L Calcium Level 9.1 MG/DL Exceptions Exceptions [facility] Medical Decision Making Medical Screen Exam Complete: Yes Emergency Medical Condition: Yes Medical Record Reviewed: Yes Interpretation(s) CBC & BMP Diagram 06/21/16 04:38 Vital Signs Date Time Temp Pulse Resp B/P Pulse Ox O2 Delivery O2 Flow Rate FiO2 06/21/16 03:37 98.3 95 16 110/64 99 Lactic acid 0.8 not elevated Last Impressions Cervical Spine CT 06/21/16 0000 Signed Impressions: Service Date/Time: Tuesday, June 21, 2016 05:49 - CONCLUSION: 1. Osteomyelitis with resulting osteolysis of the anterior portion of the C3 vertebral body and resulting focal kyphosis. This is a new finding the prior study. 2. Anterior fusion plate at C4-C5. 3. Significant paraspinal soft tissue swelling most pronounced anteriorly. Luigi Baeza Jr., MD Differential Diagnosis Neck pain, recurrent abscess, osteomyelitis, polysubstance ingestion Narrative Course IV access obtained specimens collected and sent for resulting blood cultures obtained; patient administered IV antibiotics Imaging study ordered CT performed and patient returns from CT preliminary reading shows evidence for cervical spine fracture cervical collar applied patient queried regarding again any injury which previously denied stating her pain has been the same since the or 12 of June while she was in rehabilitation. Patient now reports that she has been unsteady on her feet and this evening while waiting for the paramedics she did slide off of a chair onto her buttock but did not hit her head or have loss of consciousness. Patient will require admission/ call to case discussed with DR Guo --admit to medicine no need for ICU/[facility] admission --keep collar in place ---will see in consultation Physician Communication Physician Communication Case discussed in detail with on-call neurosurgeon Dr. Guo is aware patient recently admitted for epidural abscess imaging study per reading identifies ostial lysis with near 50% anterior focal kyphosis is aware that this is new compared to previous study from 05/14/16 is where patient has cervical collar in place has been afebrile normal total white cell count sedimentation rate of 0.8 addition of ESR and C reactive protein pending requests patient to be admitted to medicine service will see in consultation is aware the MRI is pending states patient does not need to be admitted to the [facility] call placed to [facility] service for admission--discussed with Dr Martell Diagnosis Primary Impression: Osteomyelitis of cervical spine Additional Impression: Osteolysis Admitting Information Admitting Physician Requests: Admit Suzy Butts MD Jun 21, 2016 04:19 Hector Guo MD Jun 21, 2016 15:16
--- NOTE | 2016-06-21 15:27 | PD.ID.CON ---
History of Present Illness Service ID Consult Requested By Dr Butts Reason for Consult neck osteomyelitis Primary Care Physician Veronique Welsh MD Diagnoses: History of Present Illness 45-year-old female known to me from her previous recent hospitalsation for IVDU associated MRSA tricuspid valve endocarditis complicated by large abscess in the retropharyngeal-prevertebral , extending down to the previous anterior cervical instrumentation, evacuated by Dr Oliver; later during the hsopital stay she also develepped intradural lumbar abscess, which was evacuated by Dr Oliver. She [facility] ans supposed to finish her abx thru August 21 , but she told me that she was [facility]'d from [facility] off [facility]x She reports stopping abx about 10-12 days prior to readmission She is a poor historian and tells me she cant remember how many days ago she was d/c'd She presents to the emergency department for complaint of worsening neck pain, and also she had her neck bent forward. She walks OK, denies upper extremity or lower extremity numbness tingling or weakness or bladder or bowel dysfunction. Her neck CT showed long segment of confluent soft tissue prominence and enhancement adjacent to the postoperative cervical spine consistent with infection. No discrete fluid collections are noted. Areas of abnormal marrow signal seen within the C3 vertebral body concerning for focal areas of osteomyelitis. There is enhancement and prominence of the posterior longitudinal ligament which causes mild mass effect upon the adjacent thecal sac without evidence of cord compression. No evidence of cord infarction or other signal abnormality. Dr Oliver was consulted No fever or chills. Review of Systems Except as stated in HPI: all other systems reviewed are Neg Past Family Social History Allergies: Coded Allergies: Penicillin (Verified Allergy, Intermediate, Rash, 06/21/16) Has taken Keflex without any problem *MDRO Multi-Drug Resistant Organism (Verified Adverse Reaction, Unknown, ) MRSA (blood) - 05/14/16, 05/16/16, 05/18/16; (sputum) - 05/17/16 MRSA (back abscess)-05/28/16 Uncoded Allergies: chemical allergy (Allergy, Severe, anaphalactic, 09/27/12) Past Medical History Tricuspid valve endocarditis, MRSA Large acute abscess in the retropharyngeal-prevertebral , extending down to the previous anterior cervical instrumentation, MRSA Lumbar epidural abscess, MRSA Lumbar intradural abscess, MRSA Past Surgical History Evacuation prevertebral - retropharyngeal neck abscess 05/25/16 Left L1-2 and left L5-S1 semi-laminectomy, evacuation of epidural and intradural abscess and Evacuation left L5 level lumbar paraspinous muscle abscess 05/29/16 Active Ordered Medications Medications where reviewed in EMR Antibiotics Include: vancomycin rifampin Family History Non-Contributory. Social History No Tobacco. No ETOH. + IVDU : Iv meth, dilaudid Physical Exam Vital Signs Vital Signs Date Time Temp Pulse Resp B/P Pulse Ox O2 Delivery O2 Flow Rate FiO2 06/21/16 12:16 97.5 64 18 121/69 100 06/21/16 10:19 71 18 06/21/16 10:18 71 18 118/64 98 Room Air 06/21/16 03:37 98.3 95 16 110/64 99 Physical Exam CONSTITUTIONAL/GENERAL: This is an adequately nourished patient, in no apparent distress. TUBES/LINES/DRAINS: RUE PICC in place wo eo infx SKIN: No jaundice, rashes, or lesions. Skin temperature appropriate. Not diaphoretic. HEAD: Atraumatic. Normocephalic. EYES: Pupils equal and round and reactive. Extraocular motions intact. No scleral icterus. No injection or drainage. Fundi not examined. ENT: Hearing grossly normal. Nose without bleeding or purulent drainage. Oral mucosae moist, edentulouis NECK: Trachea midline. Prominent cervical kyphosis Neck is tender to palpation Anterior neck scar well healed CARDIOVASCULAR: Regular rate and rhythm without murmurs, gallops, or rubs. No JVD. Peripheral pulses symmetric. RESPIRATORY/CHEST: Symmetric, unlabored respirations. Clear to auscultation. Breath sounds equal bilaterally. No wheezes, rales, or rhonchi. GASTROINTESTINAL: Abdomen soft, non-tender, nondistended. No hepato-splenomegaly , or palpable masses. No guarding. Bowel sounds present. GENITOURINARY: Without palpable bladder distension. MUSCULOSKELETAL: Extremities without clubbing, cyanosis, or edema. No calf tenderness. No mottling or clubbing. BACK: well healed L spine scar LYMPHATICS: No palpable cervical or supraclavicular adenopathy. NEUROLOGICAL: Awake and alert. Motor and sensory grossly within normal limits. Follows commands. Normal speech Moves all extremities 5/5 PSYCHIATRIC: calm and cooperative Laboratory Laboratory Tests Test 06/21/16 04:38 White Blood Count 6.1 Red Blood Count 3.98 Hemoglobin 8.0 Hematocrit 24.9 Mean Corpuscular Volume 62.7 Mean Corpuscular Hemoglobin 20.1 Mean Corpuscular Hemoglobin 32.1 Concent Red Cell Distribution Width 24.7 Platelet Count 371 Mean Platelet Volume 8.4 Neutrophils (%) (Auto) 71.2 Lymphocytes (%) (Auto) 14.9 Monocytes (%) (Auto) 7.9 Eosinophils (%) (Auto) 5.6 Basophils (%) (Auto) 0.4 Neutrophils # (Auto) 4.4 Lymphocytes # (Auto) 0.9 Monocytes # (Auto) 0.5 Eosinophils # (Auto) 0.3 Basophils # (Auto) 0.0 CBC Comment AUTO DIFF Differential Comment AUTO DIFF CONFIRMED Erythrocyte Sedimentation Rate GREATER THAN 140 Prothrombin Time 11.9 Prothromb Time International 1.1 Ratio Activated Partial 31.5 Thromboplast Time Sodium Level 137 Potassium Level 3.5 Chloride Level 103 Carbon Dioxide Level 30.3 Anion Gap 4 Blood Urea Nitrogen 10 Creatinine 0.61 Estimat Glomerular Filtration 107 Rate Random Glucose 93 Lactic Acid Level 0.8 Calcium Level 9.1 C-Reactive Protein 7.30 Date/Time Procedure Status Source Growth 06/21/16 04:40 Aerobic Blood Culture Received Blood Peripheral Pending 06/21/16 04:40 Anaerobic Blood Culture Received Blood Peripheral Pending Result Diagram: 06/21/16 0438 06/21/16 0438 Imaging Last Impressions Cervical Spine MRI 06/21/16 0000 Signed Impressions: Service Date/Time: Tuesday, June 21, 2016 09:07 - CONCLUSION: There is a long segment of confluent soft tissue prominence and enhancement adjacent to the postoperative cervical spine consistent with infection. No discrete fluid collections are noted. Areas of abnormal marrow signal seen within the C3 vertebral body concerning for focal areas of osteomyelitis. There is enhancement and prominence of the posterior longitudinal ligament which causes mild mass effect upon the adjacent thecal sac without evidence of cord compression. No evidence of cord infarction or other signal abnormality. Shana Mcknight MD Cervical Spine CT 06/21/16 0000 Signed Impressions: Service Date/Time: Tuesday, June 21, 2016 05:49 - CONCLUSION: 1. Osteomyelitis with resulting osteolysis of the anterior portion of the C3 vertebral body and resulting focal kyphosis. This is a new finding the prior study. 2. Anterior fusion plate at C4-C5. 3. Significant paraspinal soft tissue swelling most pronounced anteriorly. Luigi Baeza Jr., MD Assessment and Plan Assessment and Plan IVDU Recent MRSA endocarditis, tricuspid valve Persistent and progressive C 3 osteomyelitis progressed to osteolysis resulting in focal kyphosis - recent retropharyngeal-prevertebral abscess extending down to the previous anterior cervical instrumentation, MRSA ; sp evacuation Lumbar epidural abscess and intradural abscess sp Left L1-2 and left L5-S1 semi- laminectomy, evacuation of epidural and intradural abscess and evacuation left L5 level lumbar paraspinous muscle abscess - cont vancomycin and rifampin awaiting neurosurgery consult Might need tissue for cultures to be repeated to w/u the reason for tx failure keep vancopmycin trough close to 20 cont rifampin serial ESR every week blood clx dc CFTX, dc clindamycin Dina Carlos MD Jun 21, 2016 15:27
[2016-06-21] MEDS: HYDROmorphone HCL PF 1 MG/ML VIAL IV PUSH PRN (15:45)
[2016-06-21 16:00] VITALS: BP 97/54; PULSE 58; RESP 18; TEMP 98.1; O2SAT 98
[2016-06-21 20:00] VITALS: BP 117/58; PULSE 70; RESP 16; TEMP 97.6; O2SAT 96
[2016-06-21] MEDS: RIFAMPIN 150 MG CAP PO SCH (22:06)
[2016-06-22] VITALS (7 sets, daily range): BP systolic 107–144; BP diastolic 57–72; PULSE 57–74; RESP 16–20; TEMP 97.8–98.2; O2SAT 96–99
[2016-06-22] MEDS: SODIUM CHLOR 0.9% 1000 ML INJ 1,000 ML IV SCH ×3 (00:27→21:34)
[2016-06-22] MEDS: ACETAMINOPHEN/HYDROcodone 325 MG/5 MG TAB PO PRN ×5 (02:35→21:28)
[2016-06-22] MEDS ORDERED: PHARMACY ORDERED LAB XX ONE (04:45)
[2016-06-22] MEDS: HYDROmorphone HCL PF 1 MG/ML VIAL IV PUSH PRN ×5 (05:28→23:49)
[2016-06-22] MEDS: VANCOMYCIN 1,000 MG/NS 250 ML IV SCH ×6 (05:32→21:30)
[2016-06-22] MEDS ORDERED: cefTRIAXone INJ 2,000 MG in SODIUM CHLORIDE 0.9% INJ 100 ML IV SCH (06:00)
[2016-06-22] MEDS: RIFAMPIN 150 MG CAP PO SCH ×2 (08:22→21:28)
[2016-06-22] MEDS: TAMSULOSIN HCL 0.4 MG CAP PO SCH (08:24)
[2016-06-22] MEDS: SODIUM CHLORIDE 0.9% FLUSH 10 ML FLUSH IV FLUSH SCH ×2 (08:25→21:00)
--- NOTE | 2016-06-22 11:35 | HHI.PR ---
Subjective Remarks in no acute distress. complaining of pain to the neck. afebrile. Objective Vitals Vital Signs Date Time Temp Pulse Resp B/P Pulse Ox O2 Delivery O2 Flow Rate FiO2 06/22/16 08:00 97.8 57 20 120/58 98 06/22/16 04:00 97.9 66 16 114/58 98 06/22/16 00:00 97.8 74 16 107/57 99 06/21/16 21:07 21 06/21/16 20:00 97.6 70 16 117/58 96 06/21/16 16:00 98.1 58 18 97/54 98 06/21/16 12:16 97.5 64 18 121/69 100 I/O 06/21/16 06/21/16 06/21/16 06/22/16 06/22/16 06/22/16 07:00 15:00 23:00 07:00 15:00 23:00 Intake Total 240 ml Balance 240 ml Intake Oral 240 ml Result Diagram: 06/21/16 0438 06/21/16 0438 Imaging Last Impressions Cervical Spine MRI 06/21/16 0000 Signed Impressions: Service Date/Time: Tuesday, June 21, 2016 09:07 - CONCLUSION: There is a long segment of confluent soft tissue prominence and enhancement adjacent to the postoperative cervical spine consistent with infection. No discrete fluid collections are noted. Areas of abnormal marrow signal seen within the C3 vertebral body concerning for focal areas of osteomyelitis. There is enhancement and prominence of the posterior longitudinal ligament which causes mild mass effect upon the adjacent thecal sac without evidence of cord compression. No evidence of cord infarction or other signal abnormality. Shana Mcknight MD Cervical Spine CT 06/21/16 0000 Signed Impressions: Service Date/Time: Tuesday, June 21, 2016 05:49 - CONCLUSION: 1. Osteomyelitis with resulting osteolysis of the anterior portion of the C3 vertebral body and resulting focal kyphosis. This is a new finding the prior study. 2. Anterior fusion plate at C4-C5. 3. Significant paraspinal soft tissue swelling most pronounced anteriorly. Luigi Baeza Jr., MD Objective Remarks GENERAL: This is a well-nourished, well-developed patient, in no apparent distress. CARDIOVASCULAR: Regular rate and regular rhythm without murmurs, gallops, or rubs. RESPIRATORY: Clear to auscultation. Breath sounds equal bilaterally. No wheezes , rales, or rhonchi. GASTROINTESTINAL: Abdomen soft, non-tender, nondistended. Normal, active bowel sounds MUSCULOSKELETAL: Extremities without clubbing, cyanosis, or edema. NEURO: Alert & Oriented x4 to person, place, time, situation. Moves all ext x4 Procedures none Medications and IVs Current Medications Vancomycin HCl 1000 mg/Sodium Chloride 250 ml @ 250 mls/hr ONCE ONCE IV Last administered on 06/21/16 04:54; Start 06/21/16 at 04:30; Stop 06/21/16 at 05:29 ; Status DC Clindamycin Phosphate 900 mg/ Sodium Chloride 106 ml @ 212 mls/hr ONCE ONCE IV Last administered on 06/21/16 05:11; Start 06/21/16 at 04:30; Stop at 15:28; Status DC Ceftriaxone Sodium 1000 mg/ Sodium Chloride 100 ml @ 200 mls/hr ONCE ONCE IV Last administered on 06/21/16 04:53; Start 06/21/16 at 04:30; Stop 06/21/16 at 15:29; Status DC Sodium Chloride (NS 1000 ml Inj) 1,000 ml @ 100 mls/hr Q10H IV Last administered on 06/22/16 11:09; Start 06/21/16 at 04:30 Iohexol (Omnipaque 350 Inj) 89 ml STK-MED ONCE IV Last administered on 05:50; Start 06/21/16 at 05:50; Stop 06/21/16 at 05:51; Status DC Sodium Chloride (NS Flush) 2 ml BID IV FLUSH Last administered on 06/22/16 08: 25; Start 06/21/16 at 09:00 Sodium Chloride 2 ml 2 ml UNSCH PRN IVF FLUSH AFTER USING IV ACCESS; Start at 08:15 Pharmacy Profile Note 0 ml @ 0 mls/hr UNSCH OTHER ; Start 06/21/16 at 08:15 Ceftriaxone Sodium/Sodium Chloride (Rocephin Inj/NS Inj) 100 ml @ 200 mls/hr Q24H IV ; Start 06/22/16 at 06:00; Stop 06/22/16 at 06:00; Status DC Acetaminophen/ Hydrocodone Bitart ([place] 5-325 Mg) 1 tab Q4H PRN PO PAIN 3-6; Start 06/21/16 at 09:00 Acetaminophen/ Hydrocodone Bitart ([place] 5-325 Mg) 2 tab Q4H PRN PO PAIN 7-10 Last administered on 06/22/16 08:24; Start 06/21/16 at 09:00 Hydromorphone HCl (Dilaudid Pf Inj) 1 mg Q4H PRN IV PUSH BREAKTHROUGH PAIN Last administered on 06/22/16 11:09; Start 06/21/16 at 09:00 Acetaminophen 650 mg 650 mg Q4H PRN PO FEVER/ PAIN 1-2; Start 06/21/16 at 09:00 Vancomycin HCl/ Sodium Chloride (Vancomycin Inj/ NS 250 ml Inj) 250 ml @ 250 mls/hr Q8H IV Last administered on 06/22/16 05:32; Start 06/21/16 at 13:00 Miscellaneous Information SPECIFIC LAB TO BE DELIA... ONCE ONCE XX Last administered on 06/22/16 05:35; Start 06/22/16 at 04:45; Stop 06/22/16 at 04:46 ; Status DC Gadodiamide (Omniscan Pf Inj) 13 ml STK-MED ONCE IV Last administered on 09:21; Start 06/21/16 at 09:21; Stop 06/21/16 at 09:22; Status DC Tamsulosin HCl (Flomax) 0.4 mg DAILY PO Last administered on 06/22/16 08:24; Start 06/22/16 at 09:00 Magnesium Hydroxide (Milk Of Magnesia Liq) 30 ml DAILY PRN PO CONSTIPATION; Start 06/21/16 at 12:00 Docusate Sodium (Colace Liq) 100 mg Q12HR PRN PO CONSTIPATION; Start 06/21/16 at 12:00 Rifampin (Rifampin) 300 mg Q12HR PO Last administered on 06/22/16 08:22; Start 06/21/16 at 21:00 A/P Assessment and Plan A/P - osteomyelitis of the cervical spine MRI of the cervical spine with a long segment of confluent soft tissue prominence and enhancement adjacent to the postoperative cervical spine consistent with infection with no discrete fluid collections. ESR > 140. ID and neurosurgery consults appreciated; continue Vanco and Rifampin. continue with pain control. 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 -anemia of chronic disease- will monitor. -DVT prophylaxis with SCD's- Fidelia Stratton MD Jun 22, 2016 11:35
--- NOTE | 2016-06-22 11:53 | HHI.NSPN ---
History Interval History Ms Rock is a 45-year-old female with a history of IVDA and cervical abscess who presents to the emergency department for complaints of increasing neck pain. She has a history of cervical spondylosis for which she previously had an anterior cervical fusion. In April she presented with an epidural abscess to the lumbar and cervical spine requiring emergent evacuation. The Gram stain showed evidence of MRSA infection. She was discharged to rehabilitation with plans for a 12 week course of IV vancomycin and rifampin. Within the past week, the patient complains of increasing neck pain and increasing swallowing difficulties for 24 hours. Due to the acute increase in symptoms, she was referred to the [place] ED for further evaluation. Her cervical spine CT shows evidence of increasing kyphosis of the C3 vertebral body. Neurosurgery has been consulted for a surgical opinion. She currently denies any weakness to arms or legs. She denies any bowel or bladder dysfunction. 06/22: Patient removed cervical collar as it does not fit well on her. Also complains that her upper dentures were lost in the ED Exam Results Vital Signs Date Time Temp Pulse Resp B/P Pulse Ox O2 Delivery O2 Flow Rate FiO2 06/22/16 08:00 97.8 57 20 120/58 98 06/21/16 21:07 21 06/21/16 10:18 Room Air Intake and Output 06/21/16 06/21/16 06/22/16 08:00 16:00 00:00 Intake Total 240 ml Balance 240 ml Physical Examination Gen: Patient appears cachectic. She is in mild distress HEENT: Normocephalic, pupils equally round and reactive to light, extraocular motors are intact, neck is supple, trachea is midline, no carotid bruits appreciable. Tenderness to palpation to the posterior cervical spine CV: Regular rate and rhythm Pulm: Clear to auscultation bilaterally GI: Abdomen is soft, nontender, nondistended Ext: No edema Integument: intact Neuro: Alert and oriented 3 CN II-XII grossly intact, no nystagmus Motor (R/L): Shoulder abduction 4/5 Elbow flexion 4+/5 Elbow extension 5/5 Hand media clerk 5/5 Hand intrinsics 5/5 Hip flexion 5/5 Knee extension 5/5 Knee flexion 5/5 Ankle dorsiflexion 5/5 Ankle plantarflexion 5/5 Sensation: Intact to light touch throughout DTR: 2+ patella, Ajith's reflex negative, no clonus at the ankles Lab, Micro, Other Results Allergies Coded Allergies Type Severity Reaction Last Updated Verified Penicillin Allergy Intermediate Rash 06/21/16 Yes *MDRO Multi-Drug Resistant Organism Adverse Reaction Unknown 06/21/16 Yes Uncoded Allergies Type Severity Reaction Last Updated Verified chemical allergy Allergy Severe anaphalactic 09/27/12 Recent Impressions Cervical Spine MRI 06/21/16 0000 Signed Impressions: Service Date/Time: Tuesday, June 21, 2016 09:07 - CONCLUSION: There is a long segment of confluent soft tissue prominence and enhancement adjacent to the postoperative cervical spine consistent with infection. No discrete fluid collections are noted. Areas of abnormal marrow signal seen within the C3 vertebral body concerning for focal areas of osteomyelitis. There is enhancement and prominence of the posterior longitudinal ligament which causes mild mass effect upon the adjacent thecal sac without evidence of cord compression. No evidence of cord infarction or other signal abnormality. Shana Mcknight MD Cervical Spine CT 06/21/16 0000 Signed Impressions: Service Date/Time: Tuesday, June 21, 2016 05:49 - CONCLUSION: 1. Osteomyelitis with resulting osteolysis of the anterior portion of the C3 vertebral body and resulting focal kyphosis. This is a new finding the prior study. 2. Anterior fusion plate at C4-C5. 3. Significant paraspinal soft tissue swelling most pronounced anteriorly. Luigi Baeza Jr., MD //// 06:00 18:00 06:00 18:00 06:00 18:00 Intake Total 240 ml Balance 240 ml Intake Oral 240 ml Laboratory Tests Test 06/21/16 06/21/16 06/22/16 04:38 16:52 04:45 White Blood Count 6.1 TH/MM3 Red Blood Count 3.98 MIL/MM3 Hemoglobin 8.0 GM/DL Hematocrit 24.9 % Mean Corpuscular Volume 62.7 FL Mean Corpuscular Hemoglobin 20.1 PG Mean Corpuscular Hemoglobin 32.1 % Concent Red Cell Distribution Width 24.7 % Platelet Count 371 TH/MM3 Mean Platelet Volume 8.4 FL Neutrophils (%) (Auto) 71.2 % Lymphocytes (%) (Auto) 14.9 % Monocytes (%) (Auto) 7.9 % Eosinophils (%) (Auto) 5.6 % Basophils (%) (Auto) 0.4 % Neutrophils # (Auto) 4.4 TH/MM3 Lymphocytes # (Auto) 0.9 TH/MM3 Monocytes # (Auto) 0.5 TH/MM3 Eosinophils # (Auto) 0.3 TH/MM3 Basophils # (Auto) 0.0 TH/MM3 CBC Comment AUTO DIFF Differential Comment AUTO DIFF CONFIRMED Erythrocyte Sedimentation Rate GREATER THAN 140 mm/hr Prothrombin Time 11.9 SEC Prothromb Time International 1.1 RATIO Ratio Activated Partial 31.5 SEC Thromboplast Time Sodium Level 137 MEQ/L Potassium Level 3.5 MEQ/L Chloride Level 103 MEQ/L Carbon Dioxide Level 30.3 MEQ/L Anion Gap 4 MEQ/L Blood Urea Nitrogen 10 MG/DL Creatinine 0.61 MG/DL Estimat Glomerular Filtration 107 ML/MIN Rate Random Glucose 93 MG/DL Lactic Acid Level 0.8 mmol/L Calcium Level 9.1 MG/DL C-Reactive Protein 7.30 MG/DL Random Vancomycin Level 21.8 COMMENT Vancomycin Level Trough 17.8 MCG/ML Procedure Category Date Status Time Complete Blood Count LAB 06/21/16 Complete With Diff 04:13 Basic Metabolic Panel LAB 06/21/16 Complete (Bmp) 04:13 Act Partial Throm LAB 06/21/16 Complete Time (Ptt) 04:13 Prothrombin Time / LAB 06/21/16 Complete Inr (Pt) 04:13 Blood Culture MARIA ESTHER 06/21/16 In Process 04:13 Lactic Acid LAB 06/21/16 Complete 04:13 Drug Screen, Random LAB 06/21/16 In Process Urine 04:19 Vancomycin Inj MED 06/21/16 Complete (Vancomycin Inj) 04:30 Ct Cerv Spine W Iv RADCT 06/21/16 Resulted Cont Clindamycin Inj MED 06/21/16 Complete (Cleocin Inj) 04:30 Ceftriaxone Inj MED 06/21/16 Complete (Rocephin Inj) 04:30 Mri C Spine W&W/O RADMR 06/21/16 Resulted Contrast Sodium Chlor 0.9% MED 06/21/16 In Process 1000 Ml Inj (Ns 1000 M 04:30 Iohexol 350 Inj MED 06/21/16 Complete (Omnipaque 350 Inj) 05:50 Apply Cervical Collar TX 06/21/16 Transmitted 06:08 C-Reactive Protein LAB 06/21/16 Complete (Crp) 06:57 [place] LAB 06/21/16 Complete Sedimentation Rate 06:57 Admit Order (Ed Use ADMITTING 06/21/16 Transmitted Only) ^ Saline Lock LISANDRO 06/21/16 In Process 08:01 Resp Oxygen [place] C RSP 06/21/16 Logged Titrat 1-4 L ^ Notify Dr: Other LISANDRO 06/21/16 In Process 08:01 Sodium Chloride 0.9% MED 06/21/16 In Process Flush (Ns Flush) 09:00 Sodium Chloride 0.9% MED 06/21/16 In Process Flush (Ns Flush) 08:15 Consult Neurosurgery CONS 06/21/16 Transmitted 08:01 Diet Regular Basic DIET 06/21/16 Transmitted Breakfast Vital Signs (Adult) LISANDRO 06/21/16 In Process 08:05 Scd Bilateral/Knee LISANDRO 06/21/16 In Process High 08:05 Consult Infectious CONS 06/21/16 Transmitted Disease Vancomycin Consult MED 06/21/16 In Process Pharmacy (Vancomycin 08:15 Ceftriaxone Inj MED 06/22/16 Complete (Rocephin Inj) 06:00 Acetamin-Hydrocod MED 06/21/16 In Process 325-5 Mg ([place] 5-325 09:00 Acetamin-Hydrocod MED 06/21/16 In Process 325-5 Mg ([place] 5-325 09:00 Hydromorphone Pf Inj MED 06/21/16 Complete (Dilaudid Pf Inj) 09:00 Acetaminophen MED 06/21/16 In Process (Tylenol) 09:00 (Hub Use Only)Inp Phy CONS 06/21/16 Transmitted Cons/Ref (Hub Use Only)Inp Phy CONS 06/21/16 Transmitted Cons/Ref Vancomycin Inj MED 06/21/16 In Process (Vancomycin Inj) 13:00 Misc. Nursing MED 06/22/16 Complete Information 04:45 Vancomycin Trough LAB 06/22/16 Complete 04:45 Gadodiamide Pf Inj MED 06/21/16 Complete (Omniscan Pf Inj) 09:21 Consult Infectious CONS 06/21/16 Transmitted Disease Tamsulosin (Flomax) MED 06/22/16 In Process 09:00 (Hub Use Only)Inp Phy CONS 06/21/16 Transmitted Cons/Ref Magnesium Hydroxide MED 06/21/16 In Process Liq (Milk Of Magnesi 12:00 Docusate Sodium Liq MED 06/21/16 In Process (Colace Liq) 12:00 Collar [place] ORTHO 06/21/16 Complete Rifampin (Rifampin) MED 06/21/16 In Process 21:00 Random Vancomycin LAB 06/21/16 Complete 15:28 Creatinine LAB 06/23/16 Verified 06:00 Creatinine LAB 06/25/16 Verified 06:00 Creatinine LAB 06/27/16 Verified 06:00 Hydromorphone Pf Inj MED 06/22/16 In Process (Dilaudid Pf Inj) 14:00 Vital Signs Date Time Temp Pulse Resp B/P Pulse Ox O2 Delivery O2 Flow Rate FiO2 06/22/16 08:00 97.8 57 20 120/58 98 06/22/16 04:00 97.9 66 16 114/58 98 06/22/16 00:00 97.8 74 16 107/57 99 06/21/16 21:07 21 06/21/16 20:00 97.6 70 16 117/58 96 06/21/16 16:00 98.1 58 18 97/54 98 06/21/16 12:16 97.5 64 18 121/69 100 06/21/16 10:19 71 18 06/21/16 10:18 71 18 118/64 98 Room Air 06/21/16 03:37 98.3 95 16 110/64 99 Medical Decision Making Impression and Plan Ms Rock is a 45-year-old female with a history of depression, IV drug abuse, MRSA spinal abscess status post surgical evacuation. She now presents a kyphotic deformity without particular weakness but no evidence of myelopathy. Her CT shows evidence of osteomyelitis involving the cervical spine with subsidence of the C3 vertebral body. Her MRI shows evidence of enhancement within the epidural space and the paravertebral tissue. This may represent abscess versus phlegmon with inflammatory changes. HD2 Neuro: Cervical spine epidural abscess, osteomyelitis, vertebral compression fracture with cervical spinal instability. 06/22 Patient will need to complete antibiotics course prior to surgical correction of deformity. We will consider more emergent surgical intervention if patient demonstrates evidence of worsening spinal instability or myelopathy Order Mcclain J collar CV/chronic anemia: Keep normotensive Pulm: Good O2 saturation on room air GI: PPI prophylaxis : Good urine output FEN: Replete electrolyte per protocol No evidence of dysphagia. Advance diet as tolerated 06/22 Patient unable to chew as her upper dentures were removed in the ED and misplaced. Will notify nurse to assist in tracking down dentures Integument: Wound intact ID: MRSA epidural abscess, and osteomyelitis. ESR>140 and CRP>7.5 shows that infection is not adequately controlled In the setting of spinal hardware, patient will require minimum of 12 weeks of vancomycin and rifampin antibiotics and will continue until ESR and CRP normalize. She may require chronic suppressive antibiotics Hold Vancomycin dose as trough levels are supratherapeutics Pain: Moderate pain secondary to kyphosis Morphine/Lortab prn Activity: OOB as tolerated DVT prophylaxis: SCD, Heparin Disposition: admit to Medicine service. Neurosurgery will continue to follow Hector Guo MD Jun 22, 2016 11:53
[2016-06-23] VITALS (7 sets, daily range): BP systolic 118–158; BP diastolic 70–92; PULSE 60–75; RESP 16–18; TEMP 97.6–98.2; O2SAT 97–99
[2016-06-23] MEDS: ACETAMINOPHEN/HYDROcodone 325 MG/5 MG TAB PO PRN ×5 (02:51→23:24)
[2016-06-23] MEDS: HYDROmorphone HCL PF 1 MG/ML VIAL IV PUSH PRN ×4 (04:57→21:47)
[2016-06-23] MEDS: VANCOMYCIN 1,000 MG/NS 250 ML IV SCH ×6 (05:02→21:48)
[2016-06-23] MEDS: SODIUM CHLOR 0.9% 1000 ML INJ 1,000 ML IV SCH ×2 (05:12→18:18)
[2016-06-23] MEDS: TAMSULOSIN HCL 0.4 MG CAP PO SCH (08:18)
[2016-06-23] MEDS: RIFAMPIN 150 MG CAP PO SCH ×2 (08:18→21:47)
[2016-06-23] MEDS: SODIUM CHLORIDE 0.9% FLUSH 10 ML FLUSH IV FLUSH SCH ×2 (09:00→21:00)
--- NOTE | 2016-06-23 12:25 | HHI.PR ---
Subjective Remarks in no acute distress. looks a little more comfortable today. no fever. Objective Vitals Vital Signs Date Time Temp Pulse Resp B/P Pulse Ox O2 Delivery O2 Flow Rate FiO2 06/23/16 08:00 98.2 66 18 158/75 99 06/23/16 04:00 97.9 75 18 144/92 98 06/23/16 00:00 97.6 70 16 130/70 99 06/22/16 20:00 97.8 67 16 135/72 98 06/22/16 17:44 96 06/22/16 16:00 98.2 67 20 116/66 99 I/O 06/22/16 06/22/16 06/22/16 06/23/16 06/23/16 06/23/16 07:00 15:00 23:00 07:00 15:00 23:00 Intake Total 1430 ml 1336 ml Balance 1430 ml 1336 ml Intake Oral 480 ml IV Total 950 ml 1336 ml # Voids 2 2 5 # Bowel Movements 0 0 Result Diagram: 06/21/16 0438 06/23/16 0633 Imaging Last Impressions Cervical Spine MRI 06/21/16 0000 Signed Impressions: Service Date/Time: Tuesday, June 21, 2016 09:07 - CONCLUSION: There is a long segment of confluent soft tissue prominence and enhancement adjacent to the postoperative cervical spine consistent with infection. No discrete fluid collections are noted. Areas of abnormal marrow signal seen within the C3 vertebral body concerning for focal areas of osteomyelitis. There is enhancement and prominence of the posterior longitudinal ligament which causes mild mass effect upon the adjacent thecal sac without evidence of cord compression. No evidence of cord infarction or other signal abnormality. Shana Mcknight MD Cervical Spine CT 06/21/16 0000 Signed Impressions: Service Date/Time: Tuesday, June 21, 2016 05:49 - CONCLUSION: 1. Osteomyelitis with resulting osteolysis of the anterior portion of the C3 vertebral body and resulting focal kyphosis. This is a new finding the prior study. 2. Anterior fusion plate at C4-C5. 3. Significant paraspinal soft tissue swelling most pronounced anteriorly. Luigi Baeza Jr., MD Objective Remarks GENERAL: This is a well-nourished, well-developed patient, in no apparent distress. CARDIOVASCULAR: Regular rate and regular rhythm without murmurs, gallops, or rubs. RESPIRATORY: Clear to auscultation. Breath sounds equal bilaterally. No wheezes , rales, or rhonchi. GASTROINTESTINAL: Abdomen soft, non-tender, nondistended. Normal, active bowel sounds MUSCULOSKELETAL: Extremities without clubbing, cyanosis, or edema. NEURO: Alert & Oriented x4 to person, place, time, situation. Moves all ext x4 Procedures none Medications and IVs Current Medications Vancomycin HCl 1000 mg/Sodium Chloride 250 ml @ 250 mls/hr ONCE ONCE IV Last administered on 06/21/16 04:54; Start 06/21/16 at 04:30; Stop 06/21/16 at 05:29 ; Status DC Clindamycin Phosphate 900 mg/ Sodium Chloride 106 ml @ 212 mls/hr ONCE ONCE IV Last administered on 06/21/16 05:11; Start 06/21/16 at 04:30; Stop at 15:28; Status DC Ceftriaxone Sodium 1000 mg/ Sodium Chloride 100 ml @ 200 mls/hr ONCE ONCE IV Last administered on 06/21/16 04:53; Start 06/21/16 at 04:30; Stop 06/21/16 at 15:29; Status DC Sodium Chloride (NS 1000 ml Inj) 1,000 ml @ 100 mls/hr Q10H IV Last administered on 06/23/16 05:12; Start 06/21/16 at 04:30 Iohexol (Omnipaque 350 Inj) 89 ml STK-MED ONCE IV Last administered on 05:50; Start 06/21/16 at 05:50; Stop 06/21/16 at 05:51; Status DC Sodium Chloride (NS Flush) 2 ml BID IV FLUSH Last administered on 06/22/16 08: 25; Start 06/21/16 at 09:00 Sodium Chloride 2 ml 2 ml UNSCH PRN IVF FLUSH AFTER USING IV ACCESS Last administered on 06/22/16 23:50; Start 06/21/16 at 08:15 Pharmacy Profile Note 0 ml @ 0 mls/hr UNSCH OTHER ; Start 06/21/16 at 08:15 Ceftriaxone Sodium/Sodium Chloride (Rocephin Inj/NS Inj) 100 ml @ 200 mls/hr Q24H IV ; Start 06/22/16 at 06:00; Stop 06/22/16 at 06:00; Status DC Acetaminophen/ Hydrocodone Bitart ([place] 5-325 Mg) 1 tab Q4H PRN PO PAIN 3-6; Start 06/21/16 at 09:00 Acetaminophen/ Hydrocodone Bitart ([place] 5-325 Mg) 2 tab Q4H PRN PO PAIN 7-10 Last administered on 06/23/16 08:18; Start 06/21/16 at 09:00 Hydromorphone HCl (Dilaudid Pf Inj) 1 mg Q4H PRN IV PUSH BREAKTHROUGH PAIN Last administered on 06/22/16 11:09; Start 06/21/16 at 09:00; Stop 06/22/16 at 11:33; Status DC Acetaminophen 650 mg 650 mg Q4H PRN PO FEVER/ PAIN 1-2; Start 06/21/16 at 09:00 Vancomycin HCl/ Sodium Chloride (Vancomycin Inj/ NS 250 ml Inj) 250 ml @ 250 mls/hr Q8H IV Last administered on 06/23/16 05:02; Start 06/21/16 at 13:00 Miscellaneous Information SPECIFIC LAB TO BE ... ONCE ONCE XX Last administered on 06/22/16 05:35; Start 06/22/16 at 04:45; Stop 06/22/16 at 04:46 ; Status DC Gadodiamide (Omniscan Pf Inj) 13 ml STK-MED ONCE IV Last administered on 09:21; Start 06/21/16 at 09:21; Stop 06/21/16 at 09:22; Status DC Tamsulosin HCl (Flomax) 0.4 mg DAILY PO Last administered on 06/23/16 08:18; Start 06/22/16 at 09:00 Magnesium Hydroxide (Milk Of Magnesia Liq) 30 ml DAILY PRN PO CONSTIPATION; Start 06/21/16 at 12:00 Docusate Sodium (Colace Liq) 100 mg Q12HR PRN PO CONSTIPATION; Start 06/21/16 at 12:00 Rifampin (Rifampin) 300 mg Q12HR PO Last administered on 06/23/16 08:18; Start 06/21/16 at 21:00 Hydromorphone HCl (Dilaudid Pf Inj) 1 mg Q3HR PRN IV PUSH BREAKTHROUGH PAIN Last administered on 3/27/17at 11:17; Start 06/22/16 at 14:00 A/P Assessment and Plan A/P - osteomyelitis of the cervical spine MRI of the cervical spine with a long segment of confluent soft tissue prominence and enhancement adjacent to the postoperative cervical spine consistent with infection with no discrete fluid collections. ESR > 140. ID and neurosurgery consults appreciated; continue Vanco and Rifampin. continue with pain control. 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 -anemia of chronic disease- will monitor. -DVT prophylaxis with SCD's/ subq Heparin- Fidelia Stratton MD Jun 23, 2016 12:25
--- NOTE | 2016-06-23 13:44 | HHI.NSPN ---
(Erinn Moura) Note Status Status: Progress Note (Erinn Moura) Interval History Interval History Ms Rock is a 45-year-old female with a history of IVDA and cervical abscess who presents to the emergency department for complaints of increasing neck pain. She has a history of cervical spondylosis for which she previously had an anterior cervical fusion. In April she presented with an epidural abscess to the lumbar and cervical spine requiring emergent evacuation. The Gram stain showed evidence of MRSA infection. She was discharged to rehabilitation with plans for a 12 week course of IV vancomycin and rifampin. Within the past week, the patient complains of increasing neck pain and increasing swallowing difficulties for 24 hours. Due to the acute increase in symptoms, she was referred to the [place] ED for further evaluation. Her cervical spine CT shows evidence of increasing kyphosis of the C3 vertebral body. Neurosurgery has been consulted for a surgical opinion. She currently denies any weakness to arms or legs. She denies any bowel or bladder dysfunction. 06/22: Patient removed cervical collar as it does not fit well on her. Also complains that her upper dentures were lost in the ED 06/23: c/o cervical pain requesting more pain medications, she is on [place] prn and Dilaudid for breakthrough pain. in bed eating breakfast, her collar was partially removed. (Erinn Moura) Labs, Micro, & Vital Signs Results Date Time Temp Pulse Resp B/P Pulse Ox O2 Delivery O2 Flow Rate FiO2 06/23/16 12:00 98.1 67 18 118/74 97 06/23/16 08:00 98.2 66 18 158/75 99 06/23/16 04:00 97.9 75 18 144/92 98 06/23/16 00:00 97.6 70 16 130/70 99 06/22/16 20:00 97.8 67 16 135/72 98 06/22/16 17:44 96 06/22/16 16:00 98.2 67 20 116/66 99 06/23/16 07:00 Intake Total 2766 ml Balance 2766 ml Constitutional Vital Signs Date Time Temp Pulse Resp B/P Pulse Ox O2 Delivery O2 Flow Rate FiO2 06/23/16 12:00 98.1 67 18 118/74 97 06/23/16 08:00 98.2 66 18 158/75 99 06/23/16 04:00 97.9 75 18 144/92 98 06/23/16 00:00 97.6 70 16 130/70 99 06/22/16 20:00 97.8 67 16 135/72 98 06/22/16 17:44 96 06/22/16 16:00 98.2 67 20 116/66 99 06/23/16 07:00 Intake Total 2766 ml Balance 2766 ml (Erinn Moura) Review of Systems/Exam Exam Awake, oriented x 3. Mood and affect is decreased with bouts of crying. Speech is fluent. Cervical spine: ROM not assess due to her fracture, redonned her [place] collar for immobilization CN: Pupils 4 mm b/l, extraocular motors are intact Muscle strength: 4/5 right deltoid and biceps. 5/5 left deltoid, biceps, b/l collar setter overlock in the upper extremities. 5/5 hip flexors, quads, hamstrings, 5/5 plantarflexion, dorsiflexion of the lower extremities. Sensory: intact to light touch throughout Ajith's negative bilaterally. No ankle clonus. Plantars downgoing b/l. ( Erinn Moura) Medications Current Medications Current Medications Medications (Trade) Dose Ordered Sig/Declan Route PRN Reason Start Time Stop Time Status Last Admin Dose Admin Sodium Chloride (NS 1000 ml Inj) 1,000 ml @ 100 mls/hr Q10H IV 06/21/16 04:30 06/23/16 05:12 Sodium Chloride (NS Flush) 2 ml BID IV FLUSH 06/21/16 09:00 06/22/16 08:25 Sodium Chloride 2 ml 2 ml UNSCH PRN IVF FLUSH AFTER USING IV ACCESS 06/21/16 08:15 06/22/16 23:50 Pharmacy Profile Note (Vancomycin Consult Pharmacy) 0 ml @ 0 mls/hr UNSCH OTHER 06/21/16 08:15 Acetaminophen/ Hydrocodone Bitart ([place] 5-325 Mg) 1 tab Q4H PRN PO PAIN 3-6 06/21/16 09:00 Acetaminophen/ Hydrocodone Bitart ([place] 5-325 Mg) 2 tab Q4H PRN PO PAIN 7-10 06/21/16 09:00 06/23/16 08:18 Acetaminophen 650 mg 650 mg Q4H PRN PO FEVER/ PAIN 1-2 06/21/16 09:00 Vancomycin HCl/ Sodium Chloride (Vancomycin Inj/ NS 250 ml Inj) 250 ml @ 250 mls/hr Q8H IV 06/21/16 13:00 06/23/16 12:27 Tamsulosin HCl (Flomax) 0.4 mg DAILY PO 06/22/16 09:00 06/23/16 08:18 Magnesium Hydroxide (Milk Of Magnesia Liq) 30 ml DAILY PRN PO CONSTIPATION 06/21/16 12:00 Docusate Sodium (Colace Liq) 100 mg Q12HR PRN PO CONSTIPATION 06/21/16 12:00 Rifampin (Rifampin) 300 mg Q12HR PO 06/21/16 21:00 06/23/16 08:18 Hydromorphone HCl (Dilaudid Pf Inj) 1 mg Q3HR PRN IV PUSH BREAKTHROUGH PAIN 06/22/16 14:00 06/23/16 11:17 Heparin Sodium (Porcine) (Heparin Inj) 5,000 units Q12HR SQ 06/23/16 21:00 (Erinn Moura) Medical Decision Making MDM Remarks 45 y/o female with history of IV Drug use, prevertebral cervical abscess with retropharyngeal drainage 05/15/[address] Oliver lumbar epidural abscess, lumbar laminectomy for evacuation on 05/29/[address] Oliver pt returns with c/o intractable cervical pain MRI C spine 06/21/16 shows prevertebral soft tissue abscess, C3 osteomyelitis with increased kyphosis at C3 (Erinn Moura) Plan Plan Remarks cont antibiotic treatment, defer mgt per ID cont cervical bracing with [place] collar, maintain brace at all times, dw patient regarding importance of keeping her brace on cont [place] prn, IV Dilaudid prn breakthrough will defer narcotic mgt to attending physician (Erinn Moura) Attending Statement The exam, history, and the medical decision-making described in the above note were completed with the assistance of the mid-level provider. I reviewed and agree with the findings presented. I attest that I had a [id number] encounter with the patient on the same day, and personally performed and documented my assessment and findings in the medical record. (Uday Beard MD) Erinn Moura Jun 23, 2016 13:44 Uday Beard MD Jun 28, 2016 12:41
[2016-06-23] MEDS: HEPARIN SODIUM - SQ 10,000 UNITS/ML VIAL SQ SCH (21:48)
[2016-06-24] VITALS (8 sets, daily range): BP systolic 127–149; BP diastolic 63–84; PULSE 60–81; RESP 18; TEMP 97.6–98.4; O2SAT 97–100
[2016-06-24] MEDS: SODIUM CHLOR 0.9% 1000 ML INJ 1,000 ML IV SCH ×3 (01:32→21:03)
[2016-06-24] MEDS: HYDROmorphone HCL PF 1 MG/ML VIAL IV PUSH PRN ×5 (01:32→21:04)
[2016-06-24] MEDS: VANCOMYCIN 1,000 MG/NS 250 ML IV SCH ×6 (04:44→21:00)
[2016-06-24] MEDS: ACETAMINOPHEN/HYDROcodone 325 MG/5 MG TAB PO PRN ×4 (04:44→18:41)
[2016-06-24] MEDS: TAMSULOSIN HCL 0.4 MG CAP PO SCH (09:37)
[2016-06-24] MEDS: RIFAMPIN 150 MG CAP PO SCH ×2 (09:37→21:02)
[2016-06-24] MEDS: SODIUM CHLORIDE 0.9% FLUSH 10 ML FLUSH IV FLUSH SCH ×2 (09:39→21:02)
[2016-06-24] MEDS: HEPARIN SODIUM - SQ 10,000 UNITS/ML VIAL SQ SCH ×2 (09:39→21:01)
--- NOTE | 2016-06-24 12:02 | HHI.PR ---
Subjective Remarks in no acute distress and looks comfortable. no fever. d/w the RN and no acute issues over night. Objective Vitals Vital Signs Date Time Temp Pulse Resp B/P Pulse Ox O2 Delivery O2 Flow Rate FiO2 06/24/16 11:10 98.2 69 18 127/63 100 06/24/16 08:00 98.3 60 18 145/71 100 06/24/16 04:00 98.3 77 18 149/ 100 06/24/16 00:08 98.4 65 18 140/68 97 06/23/16 20:15 98 21 06/23/16 20:00 98.0 74 18 126/71 99 06/23/16 16:00 98.0 60 18 123/74 98 I/O 06/23/16 06/23/16 06/23/16 06/24/16 06/24/16 06/24/16 07:00 15:00 23:00 07:00 15:00 23:00 Intake Total 1336 ml 1294 ml Balance 1336 ml 1294 ml Intake Oral 720 ml IV Total 1336 ml 574 ml # Voids 5 4 1 1 # Bowel Movements 0 0 1 1 Result Diagram: 06/21/16 0438 06/24/16 0706 Imaging Last Impressions Cervical Spine MRI 06/21/16 0000 Signed Impressions: Service Date/Time: Tuesday, June 21, 2016 09:07 - CONCLUSION: There is a long segment of confluent soft tissue prominence and enhancement adjacent to the postoperative cervical spine consistent with infection. No discrete fluid collections are noted. Areas of abnormal marrow signal seen within the C3 vertebral body concerning for focal areas of osteomyelitis. There is enhancement and prominence of the posterior longitudinal ligament which causes mild mass effect upon the adjacent thecal sac without evidence of cord compression. No evidence of cord infarction or other signal abnormality. Shana Mcknight MD Cervical Spine CT 06/21/16 0000 Signed Impressions: Service Date/Time: Tuesday, June 21, 2016 05:49 - CONCLUSION: 1. Osteomyelitis with resulting osteolysis of the anterior portion of the C3 vertebral body and resulting focal kyphosis. This is a new finding the prior study. 2. Anterior fusion plate at C4-C5. 3. Significant paraspinal soft tissue swelling most pronounced anteriorly. Luigi Baeza Jr., MD Objective Remarks GENERAL: This is a well-nourished, well-developed patient, in no apparent distress. CARDIOVASCULAR: Regular rate and regular rhythm without murmurs, gallops, or rubs. RESPIRATORY: Clear to auscultation. Breath sounds equal bilaterally. No wheezes , rales, or rhonchi. GASTROINTESTINAL: Abdomen soft, non-tender, nondistended. Normal, active bowel sounds MUSCULOSKELETAL: Extremities without clubbing, cyanosis, or edema. NEURO: Alert & Oriented x4 to person, place, time, situation. Moves all ext x4 Procedures none Medications and IVs Current Medications Vancomycin HCl 1000 mg/Sodium Chloride 250 ml @ 250 mls/hr ONCE ONCE IV Last administered on 06/21/16 04:54; Start 06/21/16 at 04:30; Stop 06/21/16 at 05:29 ; Status DC Clindamycin Phosphate 900 mg/ Sodium Chloride 106 ml @ 212 mls/hr ONCE ONCE IV Last administered on 06/21/16 05:11; Start 06/21/16 at 04:30; Stop at 15:28; Status DC Ceftriaxone Sodium 1000 mg/ Sodium Chloride 100 ml @ 200 mls/hr ONCE ONCE IV Last administered on 06/21/16 04:53; Start 06/21/16 at 04:30; Stop 06/21/16 at 15:29; Status DC Sodium Chloride (NS 1000 ml Inj) 1,000 ml @ 100 mls/hr Q10H IV Last administered on 06/24/16 01:32; Start 06/21/16 at 04:30 Iohexol (Omnipaque 350 Inj) 89 ml STK-MED ONCE IV Last administered on 05:50; Start 06/21/16 at 05:50; Stop 06/21/16 at 05:51; Status DC Sodium Chloride (NS Flush) 2 ml BID IV FLUSH Last administered on 06/24/16 09: 39; Start 06/21/16 at 09:00 Sodium Chloride 2 ml 2 ml UNSCH PRN IVF FLUSH AFTER USING IV ACCESS Last administered on 06/22/16 23:50; Start 06/21/16 at 08:15 Pharmacy Profile Note 0 ml @ 0 mls/hr UNSCH OTHER ; Start 06/21/16 at 08:15 Ceftriaxone Sodium/Sodium Chloride (Rocephin Inj/NS Inj) 100 ml @ 200 mls/hr Q24H IV ; Start 06/22/16 at 06:00; Stop 06/22/16 at 06:00; Status DC Acetaminophen/ Hydrocodone Bitart ([place] 5-325 Mg) 1 tab Q4H PRN PO PAIN 3-6; Start 06/21/16 at 09:00 Acetaminophen/ Hydrocodone Bitart ([place] 5-325 Mg) 2 tab Q4H PRN PO PAIN 7-10 Last administered on 06/24/16 09:23; Start 06/21/16 at 09:00 Hydromorphone HCl (Dilaudid Pf Inj) 1 mg Q4H PRN IV PUSH BREAKTHROUGH PAIN Last administered on 06/22/16 11:09; Start 06/21/16 at 09:00; Stop 06/22/16 at 11:33; Status DC Acetaminophen 650 mg 650 mg Q4H PRN PO FEVER/ PAIN 1-2; Start 06/21/16 at 09:00 Vancomycin HCl/ Sodium Chloride (Vancomycin Inj/ NS 250 ml Inj) 250 ml @ 250 mls/hr Q8H IV Last administered on 06/24/16 04:44; Start 06/21/16 at 13:00 Miscellaneous Information SPECIFIC LAB TO BE [place]... ONCE ONCE XX Last administered on 06/22/16 05:35; Start 06/22/16 at 04:45; Stop 06/22/16 at 04:46 ; Status DC Gadodiamide (Omniscan Pf Inj) 13 ml STK-MED ONCE IV Last administered on 09:21; Start 06/21/16 at 09:21; Stop 06/21/16 at 09:22; Status DC Tamsulosin HCl (Flomax) 0.4 mg DAILY PO Last administered on 06/24/16 09:37; Start 06/22/16 at 09:00 Magnesium Hydroxide (Milk Of Magnesia Liq) 30 ml DAILY PRN PO CONSTIPATION; Start 06/21/16 at 12:00 Docusate Sodium (Colace Liq) 100 mg Q12HR PRN PO CONSTIPATION; Start 06/21/16 at 12:00 Rifampin (Rifampin) 300 mg Q12HR PO Last administered on 06/24/16 09:37; Start 06/21/16 at 21:00 Hydromorphone HCl (Dilaudid Pf Inj) 1 mg Q3HR PRN IV PUSH BREAKTHROUGH PAIN Last administered on 06/24/16 06:55; Start 06/22/16 at 14:00 Heparin Sodium (Porcine) (Heparin Inj) 5,000 units Q12HR SQ Last administered on 06/24/16 09:39; Start 06/23/16 at 21:00 Miscellaneous Information SPECIFIC LAB TO BE DRAWN:VANCOMYCIN TROUGH DATE TO... ONCE ONCE XX ; Start 06/25/16 at 04:45; Stop 06/25/16 at 04:46 A/P Assessment and Plan A/P - osteomyelitis of the cervical spine MRI of the cervical spine with a long segment of confluent soft tissue prominence and enhancement adjacent to the postoperative cervical spine consistent with infection with no discrete fluid collections. ESR > 140. ID and neurosurgery consults appreciated; continue Vanco and Rifampin. continue with pain control. 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 -anemia of chronic disease- will monitor. -DVT prophylaxis with SCD's/ subq Heparin- Fidelia Stratton MD Jun 24, 2016 12:02
--- NOTE | 2016-06-24 16:42 | HHI.NSPN ---
History Chief Complaint: Neck pain. Interval History Ms Rock is a 45-year-old female with a history of IVDA and cervical abscess who presents to the emergency department for complaints of increasing neck pain. She has a history of cervical spondylosis for which she previously had an anterior cervical fusion. In April she presented with an epidural abscess to the lumbar and cervical spine requiring emergent evacuation. The Gram stain showed evidence of MRSA infection. She was discharged to rehabilitation with plans for a 12 week course of IV vancomycin and rifampin. Within the past week, the patient complains of increasing neck pain and increasing swallowing difficulties for 24 hours. Due to the acute increase in symptoms, she was referred to the [place] ED for further evaluation. Her cervical spine CT shows evidence of increasing kyphosis of the C3 vertebral body. Neurosurgery has been consulted for a surgical opinion. She currently denies any weakness to arms or legs. She denies any bowel or bladder dysfunction. 06/22: Patient removed cervical collar as it does not fit well on her. Also complains that her upper dentures were lost in the ED 06/23: c/o cervical pain requesting more pain medications, she is on [place] prn and Dilaudid for breakthrough pain. in bed eating breakfast, her collar was partially removed. 06/24/16: Pt complains of neck pain. No radiculopathy in UEs. no paresthesias in UEs. Cervical collar in place. Review of Systems General: Negative for: fever, chills, insomnia Respiratory: Negative for: shortness of breath, cough, sputum Cardiovascular: Negative for: chest pain Gastrointestinal: Negative for: nausea, vomitting, diarrhea, constipation Exam Results Vital Signs Date Time Temp Pulse Resp B/P Pulse Ox O2 Delivery O2 Flow Rate FiO2 06/24/16 12:38 97.6 79 18 145/79 100 06/23/16 20:15 21 06/21/16 10:18 Room Air Intake and Output 06/23/16 06/23/16 06/24/16 08:00 16:00 00:00 Intake Total 1336 ml 1294 ml Balance 1336 ml 1294 ml Physical Examination Resp: CTA bilaterally Heart NSR no murmurs Abd: Soft positive bs Skin: No cyanosis or erythema Muscle: 4/5 right deltoid strength otherwise 5/5 in UEs. [place] collar in place. Neuro: Pt awake and alert. Follows commands well. Speech appropriate. Lab, Micro, Other Results Last Impressions Cervical Spine MRI 06/21/16 0000 Signed Impressions: Service Date/Time: Tuesday, June 21, 2016 09:07 - CONCLUSION: There is a long segment of confluent soft tissue prominence and enhancement adjacent to the postoperative cervical spine consistent with infection. No discrete fluid collections are noted. Areas of abnormal marrow signal seen within the C3 vertebral body concerning for focal areas of osteomyelitis. There is enhancement and prominence of the posterior longitudinal ligament which causes mild mass effect upon the adjacent thecal sac without evidence of cord compression. No evidence of cord infarction or other signal abnormality. Shana Mcknight MD Cervical Spine CT 06/21/16 0000 Signed Impressions: Service Date/Time: Tuesday, June 21, 2016 05:49 - CONCLUSION: 1. Osteomyelitis with resulting osteolysis of the anterior portion of the C3 vertebral body and resulting focal kyphosis. This is a new finding the prior study. 2. Anterior fusion plate at C4-C5. 3. Significant paraspinal soft tissue swelling most pronounced anteriorly. Luigi Baeza Jr., MD Laboratory Tests Test 06/24/16 07:06 Creatinine 0.43 MG/DL Estimat Glomerular Filtration 160 ML/MIN Rate 06/23/16 06/23/16 06/24/16 15:00 23:00 07:00 Intake Total 1294 ml Balance 1294 ml Intake Oral 720 ml IV Total 574 ml # Voids 4 1 1 # Bowel Movements 0 1 1 Medical Decision Making Impression and Plan A: 45 y/o FM with history of IV Drug use, prevertebral cervical abscess with retropharyngeal drainage 05/15/[address] Oliver lumbar epidural abscess, lumbar laminectomy for evacuation on 05/29/[address] Oliver pt returns with c/o intractable cervical pain MRI C spine 06/21/16 shows prevertebral soft tissue abscess, C3 osteomyelitis with increased kyphosis at C3 P: Continue to monitor neuro exam continue with Rehab efforts continue with cervical collar Continue with antibiotics. Yvan Quesada Jun 24, 2016 16:41
[2016-06-25] VITALS (7 sets, daily range): BP systolic 133–156; BP diastolic 74–78; PULSE 62–75; RESP 14–18; TEMP 97.4–98.5; O2SAT 98–100
[2016-06-25] MEDS: ACETAMINOPHEN/HYDROcodone 325 MG/5 MG TAB PO PRN ×5 (00:22→20:35)
[2016-06-25] MEDS: HYDROmorphone HCL PF 1 MG/ML VIAL IV PUSH PRN ×5 (03:45→21:34)
[2016-06-25] MEDS ORDERED: PHARMACY ORDERED LAB XX ONE (04:45)
[2016-06-25] MEDS: VANCOMYCIN 1,000 MG/NS 250 ML IV SCH ×6 (05:00→20:33)
[2016-06-25] MEDS: SODIUM CHLORIDE 0.9% FLUSH 10 ML FLUSH IV FLUSH SCH ×2 (09:00→20:34)
[2016-06-25] MEDS: RIFAMPIN 150 MG CAP PO SCH (09:01)
[2016-06-25] MEDS: TAMSULOSIN HCL 0.4 MG CAP PO SCH (09:01)
[2016-06-25] MEDS: HEPARIN SODIUM - SQ 10,000 UNITS/ML VIAL SQ SCH ×2 (09:03→20:34)
[2016-06-25] MEDS: SODIUM CHLOR 0.9% 1000 ML INJ 1,000 ML IV SCH ×2 (09:11→16:40)
--- NOTE | 2016-06-25 11:07 | HHI.NSPN ---
(Erinn Moura) Note Status Status: Progress Note (Erinn Moura) Interval History Interval History Ms Rock is a 45-year-old female with a history of IVDA and cervical abscess who presents to the emergency department for complaints of increasing neck pain. She has a history of cervical spondylosis for which she previously had an anterior cervical fusion. In April she presented with an epidural abscess to the lumbar and cervical spine requiring emergent evacuation. The Gram stain showed evidence of MRSA infection. She was discharged to rehabilitation with plans for a 12 week course of IV vancomycin and rifampin. Within the past week, the patient complains of increasing neck pain and increasing swallowing difficulties for 24 hours. Due to the acute increase in symptoms, she was referred to the [place] ED for further evaluation. Her cervical spine CT shows evidence of increasing kyphosis of the C3 vertebral body. Neurosurgery has been consulted for a surgical opinion. She currently denies any weakness to arms or legs. She denies any bowel or bladder dysfunction. 06/22: Patient removed cervical collar as it does not fit well on her. Also complains that her upper dentures were lost in the ED 06/23: c/o cervical pain requesting more pain medications, she is on [place] prn and Dilaudid for breakthrough pain. in bed eating breakfast, her collar was partially removed. 06/25: seen again with her cervical collar partially removed, and I again discussed with her the importance of maintaining her collar on. reports of stable chronic right upper extremity weakness, her cervical pain today is better controlled. (Erinn Moura) Labs, Micro, & Vital Signs Results Date Time Temp Pulse Resp B/P Pulse Ox O2 Delivery O2 Flow Rate FiO2 06/25/16 08:47 62 16 146/75 100 06/25/16 08:35 97.7 66 18 156/75 99 06/25/16 04:00 98.0 70 18 134/75 98 06/25/16 00:00 98.1 75 18 144/74 99 06/24/16 20:00 98.0 71 18 129/73 100 06/24/16 16:00 97.9 81 18 145/84 98 06/24/16 12:38 97.6 79 18 145/79 100 06/24/16 12:00 98.2 63 18 127/69 100 06/24/16 11:10 98.2 69 18 127/63 100 06/25/16 07:00 Intake Total 2172 ml Balance 2172 ml Constitutional Vital Signs Date Time Temp Pulse Resp B/P Pulse Ox O2 Delivery O2 Flow Rate FiO2 06/25/16 08:47 62 16 146/75 100 06/25/16 08:35 97.7 66 18 156/75 99 06/25/16 04:00 98.0 70 18 134/75 98 06/25/16 00:00 98.1 75 18 144/74 99 06/24/16 20:00 98.0 71 18 129/73 100 06/24/16 16:00 97.9 81 18 145/84 98 06/24/16 12:38 97.6 79 18 145/79 100 06/24/16 12:00 98.2 63 18 127/69 100 06/24/16 11:10 98.2 69 18 127/63 100 06/25/16 07:00 Intake Total 2172 ml Balance 2172 ml (Erinn Moura) Review of Systems/Exam Exam Alert and oriented x 3. Appears more comfortable today, speech is fluent. Cervical spine: immobilized with [place] collar CN: Pupils 4 mm b/l, extraocular motors are intact Muscle strength: 4/5 right deltoid and biceps. 5/5 left deltoid, biceps, b/l triceps, vet assistant in the upper extremities. 5/5 hip flexors, quads, hamstrings, 5/ 5 plantarflexion, dorsiflexion of the lower extremities. Sensory: intact to light touch throughout DTRs: knees 2+ b/l, Ajith's negative bilaterally. No ankle clonus. Plantars downgoing b/l. Gait: no ataxia seen (Erinn Moura) Medications Current Medications Current Medications Medications (Trade) Dose Ordered Sig/Declan Route PRN Reason Start Time Stop Time Status Last Admin Dose Admin Sodium Chloride (NS 1000 ml Inj) 1,000 ml @ 100 mls/hr Q10H IV 06/21/16 04:30 06/25/16 09:11 Sodium Chloride (NS Flush) 2 ml BID IV FLUSH 06/21/16 09:00 06/25/16 09:00 Sodium Chloride 2 ml 2 ml UNSCH PRN IVF FLUSH AFTER USING IV ACCESS 06/21/16 08:15 06/22/16 23:50 Pharmacy Profile Note (Vancomycin Consult Pharmacy) 0 ml @ 0 mls/hr UNSCH OTHER 06/21/16 08:15 Acetaminophen/ Hydrocodone Bitart ([place] 5-325 Mg) 1 tab Q4H PRN PO PAIN 3-6 06/21/16 09:00 Acetaminophen/ Hydrocodone Bitart ([place] 5-325 Mg) 2 tab Q4H PRN PO PAIN 7-10 06/21/16 09:00 06/25/16 05:37 Acetaminophen 650 mg 650 mg Q4H PRN PO FEVER/ PAIN 1-2 06/21/16 09:00 Vancomycin HCl/ Sodium Chloride (Vancomycin Inj/ NS 250 ml Inj) 250 ml @ 250 mls/hr Q8H IV 06/21/16 13:00 06/24/16 21:00 Tamsulosin HCl (Flomax) 0.4 mg DAILY PO 06/22/16 09:00 06/25/16 09:01 Magnesium Hydroxide (Milk Of Magnesia Liq) 30 ml DAILY PRN PO CONSTIPATION 06/21/16 12:00 Docusate Sodium (Colace Liq) 100 mg Q12HR PRN PO CONSTIPATION 06/21/16 12:00 Rifampin (Rifampin) 300 mg Q12HR PO 06/21/16 21:00 06/25/16 09:01 Hydromorphone HCl (Dilaudid Pf Inj) 1 mg Q3HR PRN IV PUSH BREAKTHROUGH PAIN 06/22/16 14:00 06/25/16 09:02 Heparin Sodium (Porcine) (Heparin Inj) 5,000 units Q12HR SQ 06/23/16 21:00 06/25/16 09:03 (Erinn Moura) Medical Decision Making MDM Remarks 45 y/o female with history of IV Drug use, prevertebral cervical abscess with retropharyngeal drainage 05/15/[address] Oliver lumbar epidural abscess, lumbar laminectomy for evacuation on 05/29/[address] Oliver pt returns with c/o intractable cervical pain MRI C spine 06/21/16 shows prevertebral soft tissue abscess, C3 osteomyelitis with increased kyphosis at C3 (Erinn Moura) Plan Plan Remarks cont antibiotic treatment, defer mgt per ID cont cervical bracing with [place] collar, maintain brace at all times, I again discussed with the patient the importance of keeping her brace on at all times, cont current pain regimen, pain better controlled also dw her to be very careful to avoid falls, call for assistance if needed stable neuro examination dw nursing (Erinn Moura) Attending Statement The exam, history, and the medical decision-making described in the above note were completed with the assistance of the mid-level provider. I reviewed and agree with the findings presented. I attest that I had a [id number] encounter with the patient on the same day, and personally performed and documented my assessment and findings in the medical record. (Uday Beard MD) Erinn Moura Jun 25, 2016 11:07 Uday Beard MD Jun 28, 2016 12:45
--- NOTE | 2016-06-25 11:53 | HHI.PR ---
Subjective Remarks resting comfortably with no distress. no fever. pain is controlled. Objective Vitals Vital Signs Date Time Temp Pulse Resp B/P Pulse Ox O2 Delivery O2 Flow Rate FiO2 06/25/16 11:13 98.5 72 14 141/78 100 06/25/16 08:47 62 16 146/75 100 06/25/16 08:35 97.7 66 18 156/75 99 06/25/16 04:00 98.0 70 18 134/75 98 06/25/16 00:00 98.1 75 18 144/74 99 06/24/16 20:00 98.0 71 18 129/73 100 06/24/16 16:00 97.9 81 18 145/84 98 06/24/16 12:38 97.6 79 18 145/79 100 06/24/16 12:00 98.2 63 18 127/69 100 I/O 06/24/16 06/24/16 06/24/16 06/25/16 06/25/16 06/25/16 07:00 15:00 23:00 07:00 15:00 23:00 Intake Total 1572 ml 360 ml 240 ml Balance 1572 ml 360 ml 240 ml Intake Oral 960 ml 360 ml 240 ml IV Total 612 ml # Voids 1 3 2 1 # Bowel Movements 1 0 0 0 Result Diagram: 06/21/16 0438 06/25/16 0554 Imaging Last Impressions Cervical Spine MRI 06/21/16 0000 Signed Impressions: Service Date/Time: Tuesday, June 21, 2016 09:07 - CONCLUSION: There is a long segment of confluent soft tissue prominence and enhancement adjacent to the postoperative cervical spine consistent with infection. No discrete fluid collections are noted. Areas of abnormal marrow signal seen within the C3 vertebral body concerning for focal areas of osteomyelitis. There is enhancement and prominence of the posterior longitudinal ligament which causes mild mass effect upon the adjacent thecal sac without evidence of cord compression. No evidence of cord infarction or other signal abnormality. Shana Mcknight MD Cervical Spine CT 06/21/16 0000 Signed Impressions: Service Date/Time: Tuesday, June 21, 2016 05:49 - CONCLUSION: 1. Osteomyelitis with resulting osteolysis of the anterior portion of the C3 vertebral body and resulting focal kyphosis. This is a new finding the prior study. 2. Anterior fusion plate at C4-C5. 3. Significant paraspinal soft tissue swelling most pronounced anteriorly. Luigi Baeza Jr., MD Objective Remarks GENERAL: This is a well-nourished, well-developed patient, in no apparent distress. CARDIOVASCULAR: Regular rate and regular rhythm without murmurs, gallops, or rubs. RESPIRATORY: Clear to auscultation. Breath sounds equal bilaterally. No wheezes , rales, or rhonchi. GASTROINTESTINAL: Abdomen soft, non-tender, nondistended. Normal, active bowel sounds MUSCULOSKELETAL: Extremities without clubbing, cyanosis, or edema. NEURO: Alert & Oriented x4 to person, place, time, situation. Moves all ext x4 Procedures none Medications and IVs Current Medications Vancomycin HCl 1000 mg/Sodium Chloride 250 ml @ 250 mls/hr ONCE ONCE IV Last administered on 06/21/16 04:54; Start 06/21/16 at 04:30; Stop 06/21/16 at 05:29 ; Status DC Clindamycin Phosphate 900 mg/ Sodium Chloride 106 ml @ 212 mls/hr ONCE ONCE IV Last administered on 06/21/16 05:11; Start 06/21/16 at 04:30; Stop at 15:28; Status DC Ceftriaxone Sodium 1000 mg/ Sodium Chloride 100 ml @ 200 mls/hr ONCE ONCE IV Last administered on 06/21/16 04:53; Start 06/21/16 at 04:30; Stop 06/21/16 at 15:29; Status DC Sodium Chloride (NS 1000 ml Inj) 1,000 ml @ 100 mls/hr Q10H IV Last administered on 06/25/16 09:11; Start 06/21/16 at 04:30 Iohexol (Omnipaque 350 Inj) 89 ml STK-MED ONCE IV Last administered on 05:50; Start 06/21/16 at 05:50; Stop 06/21/16 at 05:51; Status DC Sodium Chloride (NS Flush) 2 ml BID IV FLUSH Last administered on 06/25/16 09: 00; Start 06/21/16 at 09:00 Sodium Chloride 2 ml 2 ml UNSCH PRN IVF FLUSH AFTER USING IV ACCESS Last administered on 06/22/16 23:50; Start 06/21/16 at 08:15 Pharmacy Profile Note 0 ml @ 0 mls/hr UNSCH OTHER ; Start 06/21/16 at 08:15 Ceftriaxone Sodium/Sodium Chloride (Rocephin Inj/NS Inj) 100 ml @ 200 mls/hr Q24H IV ; Start 06/22/16 at 06:00; Stop 06/22/16 at 06:00; Status DC Acetaminophen/ Hydrocodone Bitart ([place] 5-325 Mg) 1 tab Q4H PRN PO PAIN 3-6; Start 06/21/16 at 09:00 Acetaminophen/ Hydrocodone Bitart ([place] 5-325 Mg) 2 tab Q4H PRN PO PAIN 7-10 Last administered on 06/25/16 11:30; Start 06/21/16 at 09:00 Hydromorphone HCl (Dilaudid Pf Inj) 1 mg Q4H PRN IV PUSH BREAKTHROUGH PAIN Last administered on 06/22/16 11:09; Start 06/21/16 at 09:00; Stop 06/22/16 at 11:33; Status DC Acetaminophen 650 mg 650 mg Q4H PRN PO FEVER/ PAIN 1-2; Start 06/21/16 at 09:00 Vancomycin HCl/ Sodium Chloride (Vancomycin Inj/ NS 250 ml Inj) 250 ml @ 250 mls/hr Q8H IV Last administered on 06/24/16 21:00; Start 06/21/16 at 13:00 Miscellaneous Information SPECIFIC LAB TO BE ... ONCE ONCE XX Last administered on 06/22/16 05:35; Start 06/22/16 at 04:45; Stop 06/22/16 at 04:46 ; Status DC Gadodiamide (Omniscan Pf Inj) 13 ml STK-MED ONCE IV Last administered on 09:21; Start 06/21/16 at 09:21; Stop 06/21/16 at 09:22; Status DC Tamsulosin HCl (Flomax) 0.4 mg DAILY PO Last administered on 06/25/16 09:01; Start 06/22/16 at 09:00 Magnesium Hydroxide (Milk Of Magnesia Liq) 30 ml DAILY PRN PO CONSTIPATION; Start 06/21/16 at 12:00 Docusate Sodium (Colace Liq) 100 mg Q12HR PRN PO CONSTIPATION; Start 06/21/16 at 12:00 Rifampin (Rifampin) 300 mg Q12HR PO Last administered on 06/25/16 09:01; Start 06/21/16 at 21:00 Hydromorphone HCl (Dilaudid Pf Inj) 1 mg Q3HR PRN IV PUSH BREAKTHROUGH PAIN Last administered on 06/25/16 09:02; Start 06/22/16 at 14:00 Heparin Sodium (Porcine) (Heparin Inj) 5,000 units Q12HR SQ Last administered on 06/25/16 09:03; Start 06/23/16 at 21:00 Miscellaneous Information SPECIFIC LAB TO BE DRAWN:VANCOMYCIN TROUGH DATE TO... ONCE ONCE XX ; Start 06/25/16 at 04:45; Stop 06/25/16 at 04:46; Status DC A/P Assessment and Plan A/P - osteomyelitis of the cervical spine MRI of the cervical spine with a long segment of confluent soft tissue prominence and enhancement adjacent to the postoperative cervical spine consistent with infection with no discrete fluid collections. ESR > 140. ID and neurosurgery consults appreciated; continue Vanco and Rifampin. continue with pain control. 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 -anemia of chronic disease- will monitor. -DVT prophylaxis with SCD's/ subq Heparin- Fidelia Stratton MD Jun 25, 2016 11:53
--- NOTE | 2016-06-25 15:17 | HHI.IDPN ---
Subjective Subjective Remarks pt is more alert and lucid today SHe told that her abx were stopped about 2 weeks prior to her readmission no fever Antibiotics vanco\ rifampin Allergies: Coded Allergies: Penicillin (Verified Allergy, Intermediate, Rash, 06/21/16) Has taken Keflex without any problem *MDRO Multi-Drug Resistant Organism (Verified Adverse Reaction, Unknown, ) MRSA (blood) - 05/14/16, 05/16/16, 05/18/16; (sputum) - 05/17/16 MRSA (back abscess)-05/28/16 Uncoded Allergies: chemical allergy (Allergy, Severe, anaphalactic, 09/27/12) Objective . Vital Signs Date Time Temp Pulse Resp B/P Pulse Ox O2 Delivery O2 Flow Rate FiO2 06/25/16 14:09 16 06/25/16 12:30 16 06/25/16 11:13 98.5 72 14 141/78 100 06/25/16 08:47 62 16 146/75 100 06/25/16 08:35 97.7 66 18 156/75 99 06/25/16 04:00 98.0 70 18 134/75 98 06/25/16 00:00 98.1 75 18 144/74 99 06/24/16 20:00 98.0 71 18 129/73 100 06/24/16 16:00 97.9 81 18 145/84 98 06/24/16 06/24/16 06/25/16 15:00 23:00 07:00 Intake Total 1572 ml 360 ml 240 ml Balance 1572 ml 360 ml 240 ml Intake Oral 960 ml 360 ml 240 ml IV Total 612 ml # Voids 3 2 1 # Bowel Movements 0 0 0 . Laboratory Tests Test 06/24/16 06/25/16 07:06 05:54 Creatinine 0.43 MG/DL 0.40 MG/DL Estimat Glomerular Filtration 160 ML/MIN 173 ML/MIN Rate Imaging Last Impressions Cervical Spine MRI 06/21/16 0000 Signed Impressions: Service Date/Time: Tuesday, June 21, 2016 09:07 - CONCLUSION: There is a long segment of confluent soft tissue prominence and enhancement adjacent to the postoperative cervical spine consistent with infection. No discrete fluid collections are noted. Areas of abnormal marrow signal seen within the C3 vertebral body concerning for focal areas of osteomyelitis. There is enhancement and prominence of the posterior longitudinal ligament which causes mild mass effect upon the adjacent thecal sac without evidence of cord compression. No evidence of cord infarction or other signal abnormality. Shana Mcknight MD Cervical Spine CT 06/21/16 0000 Signed Impressions: Service Date/Time: Tuesday, June 21, 2016 05:49 - CONCLUSION: 1. Osteomyelitis with resulting osteolysis of the anterior portion of the C3 vertebral body and resulting focal kyphosis. This is a new finding the prior study. 2. Anterior fusion plate at C4-C5. 3. Significant paraspinal soft tissue swelling most pronounced anteriorly. Luigi Baeza Jr., MD Physical Exam CONSTITUTIONAL/GENERAL: This is an adequately nourished patient, in no apparent distress. TUBES/LINES/DRAINS: RUE PICC in place wo eo infx SKIN: No jaundice, rashes, or lesions. Skin temperature appropriate. Not diaphoretic. NECK: Ccollar in place CARDIOVASCULAR: Regular rate and rhythm without murmurs, gallops, or rubs. No JVD. Peripheral pulses symmetric. RESPIRATORY/CHEST: Symmetric, unlabored respirations. Clear to auscultation. Breath sounds equal bilaterally. No wheezes, rales, or rhonchi. GASTROINTESTINAL: Abdomen soft, non-tender, nondistended. No hepato-splenomegaly , or palpable masses. No guarding. Bowel sounds present. MUSCULOSKELETAL: Extremities without clubbing, cyanosis, or edema. No calf tenderness. No mottling or clubbing. NEUROLOGICAL: Awake and alert. Motor and sensory grossly within normal limits. Follows commands. Normal speech Moves all extremities 5/5 upper and lower Assessment & Plan Remarks IVDU Recent MRSA endocarditis, tricuspid valve Persistent and progressive C 3 osteomyelitis progressed to osteolysis resulting in focal kyphosis - recent retropharyngeal-prevertebral abscess extending down to the previous anterior cervical instrumentation, MRSA ; sp evacuation - imcompleted VANCO/RIf course Lumbar epidural abscess and intradural abscess sp Left L1-2 and left L5-S1 semi- laminectomy, evacuation of epidural and intradural abscess and evacuation left L5 level lumbar paraspinous muscle abscess - cont vancomycin and rifampin for 3-6 mos then likley lifelong suppression - will repeatr mRI at some point keep vancopmycin trough close to 20 cont rifampin monitor LFTs serial ESR every week fu blood clx until final Dina Carlos MD 29, 2017 15:17
[2016-06-26] VITALS: BP 129/77; PULSE 72; RESP 18; TEMP 98; O2SAT 98
[2016-06-26] MEDS: HYDROmorphone HCL PF 1 MG/ML VIAL IV PUSH PRN ×6 (00:22→23:32)
[2016-06-26] MEDS: RIFAMPIN 150 MG CAP PO SCH ×3 (00:26→22:10)
[2016-06-26] MEDS: ACETAMINOPHEN/HYDROcodone 325 MG/5 MG TAB PO PRN ×5 (02:05→22:09)
[2016-06-26 04:00] VITALS: BP 164/88; PULSE 75; RESP 18; TEMP 97.8; O2SAT 98
[2016-06-26] MEDS: SODIUM CHLOR 0.9% 1000 ML INJ 1,000 ML IV SCH ×2 (04:30→12:35)
[2016-06-26] MEDS: VANCOMYCIN 1,000 MG/NS 250 ML IV SCH ×6 (05:00→22:09)
[2016-06-26 08:00] VITALS: BP_SYST 135; BP_SYST 164; BP_DIAS 69; BP_DIAS 84; PULSE 65; PULSE 81; RESP 18; TEMP 97; TEMP 97.2; O2SAT 98; O2SAT 99
[2016-06-26] MEDS: TAMSULOSIN HCL 0.4 MG CAP PO SCH (08:30)
[2016-06-26] MEDS: HEPARIN SODIUM - SQ 10,000 UNITS/ML VIAL SQ SCH ×2 (08:30→22:10)
[2016-06-26] MEDS: SODIUM CHLORIDE 0.9% FLUSH 10 ML FLUSH IV FLUSH SCH ×2 (08:31→21:00)
[2016-06-26 08:41] LABS: INDIRECT BILIRUBIN 0.2 MG/DL (0.0-0.8); TOTAL BILIRUBIN ADULT 0.3 MG/DL (0.2-1.0)
--- NOTE | 2016-06-26 11:37 | HHI.PR ---
Subjective Remarks in no acute distress. no fever. pain is controlled. Objective Vitals Vital Signs Date Time Temp Pulse Resp B/P Pulse Ox O2 Delivery O2 Flow Rate FiO2 06/26/16 08:00 97.2 65 18 135/69 98 06/26/16 04:00 97.8 75 18 164/88 98 06/26/16 00:00 98.0 72 18 129/77 98 06/25/16 20:00 98.4 71 16 133/76 100 06/25/16 18:00 16 06/25/16 17:50 16 06/25/16 16:48 97.4 67 17 147/77 100 I/O 06/25/16 06/25/16 06/25/16 06/26/16 06/26/16 06/26/16 07:00 15:00 23:00 07:00 15:00 23:00 Intake Total 240 ml 1653 ml 1173 ml Balance 240 ml 1653 ml 1173 ml Intake Oral 240 ml 240 ml 480 ml IV Total 1413 ml 693 ml # Voids 1 6 3 # Bowel Movements 0 0 Result Diagram: 06/25/16 0554 Imaging Last Impressions Cervical Spine MRI 06/21/16 0000 Signed Impressions: Service Date/Time: Tuesday, June 21, 2016 09:07 - CONCLUSION: There is a long segment of confluent soft tissue prominence and enhancement adjacent to the postoperative cervical spine consistent with infection. No discrete fluid collections are noted. Areas of abnormal marrow signal seen within the C3 vertebral body concerning for focal areas of osteomyelitis. There is enhancement and prominence of the posterior longitudinal ligament which causes mild mass effect upon the adjacent thecal sac without evidence of cord compression. No evidence of cord infarction or other signal abnormality. Shana Mcknight MD Cervical Spine CT 06/21/16 0000 Signed Impressions: Service Date/Time: Tuesday, June 21, 2016 05:49 - CONCLUSION: 1. Osteomyelitis with resulting osteolysis of the anterior portion of the C3 vertebral body and resulting focal kyphosis. This is a new finding the prior study. 2. Anterior fusion plate at C4-C5. 3. Significant paraspinal soft tissue swelling most pronounced anteriorly. Luigi Baeza Jr., MD Objective Remarks GENERAL: This is a well-nourished, well-developed patient, in no apparent distress. CARDIOVASCULAR: Regular rate and regular rhythm without murmurs, gallops, or rubs. RESPIRATORY: Clear to auscultation. Breath sounds equal bilaterally. No wheezes , rales, or rhonchi. GASTROINTESTINAL: Abdomen soft, non-tender, nondistended. Normal, active bowel sounds MUSCULOSKELETAL: Extremities without clubbing, cyanosis, or edema. NEURO: Alert & Oriented x4 to person, place, time, situation. Moves all ext x4 Procedures none Medications and IVs Current Medications Vancomycin HCl 1000 mg/Sodium Chloride 250 ml @ 250 mls/hr ONCE ONCE IV Last administered on 06/21/16 04:54; Start 06/21/16 at 04:30; Stop 06/21/16 at 05:29 ; Status DC Clindamycin Phosphate 900 mg/ Sodium Chloride 106 ml @ 212 mls/hr ONCE ONCE IV Last administered on 06/21/16 05:11; Start 06/21/16 at 04:30; Stop at 15:28; Status DC Ceftriaxone Sodium 1000 mg/ Sodium Chloride 100 ml @ 200 mls/hr ONCE ONCE IV Last administered on 06/21/16 04:53; Start 06/21/16 at 04:30; Stop 06/21/16 at 15:29; Status DC Sodium Chloride (NS 1000 ml Inj) 1,000 ml @ 100 mls/hr Q10H IV Last administered on 06/26/16 04:30; Start 06/21/16 at 04:30 Iohexol (Omnipaque 350 Inj) 89 ml STK-MED ONCE IV Last administered on 05:50; Start 06/21/16 at 05:50; Stop 06/21/16 at 05:51; Status DC Sodium Chloride (NS Flush) 2 ml BID IV FLUSH Last administered on 06/26/16 08: 31; Start 06/21/16 at 09:00 Sodium Chloride 2 ml 2 ml UNSCH PRN IVF FLUSH AFTER USING IV ACCESS Last administered on 06/22/16 23:50; Start 06/21/16 at 08:15 Pharmacy Profile Note 0 ml @ 0 mls/hr UNSCH OTHER ; Start 06/21/16 at 08:15 Ceftriaxone Sodium/Sodium Chloride (Rocephin Inj/NS Inj) 100 ml @ 200 mls/hr Q24H IV ; Start 06/22/16 at 06:00; Stop 06/22/16 at 06:00; Status DC Acetaminophen/ Hydrocodone Bitart ([place] 5-325 Mg) 1 tab Q4H PRN PO PAIN 3-6; Start 06/21/16 at 09:00 Acetaminophen/ Hydrocodone Bitart ([place] 5-325 Mg) 2 tab Q4H PRN PO PAIN 7-10 Last administered on 06/26/16 11:06; Start 06/21/16 at 09:00 Hydromorphone HCl (Dilaudid Pf Inj) 1 mg Q4H PRN IV PUSH BREAKTHROUGH PAIN Last administered on 06/22/16 11:09; Start 06/21/16 at 09:00; Stop 06/22/16 at 11:33; Status DC Acetaminophen 650 mg 650 mg Q4H PRN PO FEVER/ PAIN 1-2; Start 06/21/16 at 09:00 Vancomycin HCl/ Sodium Chloride (Vancomycin Inj/ NS 250 ml Inj) 250 ml @ 250 mls/hr Q8H IV Last administered on 06/26/16 05:00; Start 06/21/16 at 13:00 Miscellaneous Information SPECIFIC LAB TO BE ... ONCE ONCE XX Last administered on 06/22/16 05:35; Start 06/22/16 at 04:45; Stop 06/22/16 at 04:46 ; Status DC Gadodiamide (Omniscan Pf Inj) 13 ml STK-MED ONCE IV Last administered on 09:21; Start 06/21/16 at 09:21; Stop 06/21/16 at 09:22; Status DC Tamsulosin HCl (Flomax) 0.4 mg DAILY PO Last administered on 06/26/16 08:30; Start 06/22/16 at 09:00 Magnesium Hydroxide (Milk Of Magnesia Liq) 30 ml DAILY PRN PO CONSTIPATION; Start 06/21/16 at 12:00 Docusate Sodium (Colace Liq) 100 mg Q12HR PRN PO CONSTIPATION; Start 06/21/16 at 12:00 Rifampin (Rifampin) 300 mg Q12HR PO Last administered on 06/26/16 08:30; Start 06/21/16 at 21:00 Hydromorphone HCl (Dilaudid Pf Inj) 1 mg Q3HR PRN IV PUSH BREAKTHROUGH PAIN Last administered on 06/26/16 08:31; Start 06/22/16 at 14:00 Heparin Sodium (Porcine) (Heparin Inj) 5,000 units Q12HR SQ Last administered on 06/26/16 08:30; Start 06/23/16 at 21:00 Miscellaneous Information SPECIFIC LAB TO BE DRAWN:VANCOMYCIN TROUGH DATE TO... ONCE ONCE XX ; Start 06/25/16 at 04:45; Stop 06/25/16 at 04:46; Status DC Cetirizine HCl (ZyrTEC) 10 mg Q12HR PRN PO allergy; Start 06/26/16 at 10:15; Status UNV Gabapentin (Neurontin) 300 mg TID PO ; Start 06/26/16 at 13:00 A/P Assessment and Plan A/P - osteomyelitis of the cervical spine MRI of the cervical spine with a long segment of confluent soft tissue prominence and enhancement adjacent to the postoperative cervical spine consistent with infection with no discrete fluid collections. ESR > 140- will monitor ESR weekly. ID and neurosurgery consults appreciated; continue Vanco and Rifampin. continue with pain control. 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 -anemia of chronic disease- will monitor. -DVT prophylaxis with SCD's/ subq Heparin- Fidelia Stratton MD Jun 26, 2016 11:37
[2016-06-26] MEDS: GABAPENTIN 300 MG CAP PO SCH ×2 (12:32→17:24)
--- NOTE | 2016-06-26 15:31 | HHI.NSPN ---
(Erinn Moura) Note Status Status: Progress Note (Erinn Moura) Interval History Interval History Ms Rock is a 45-year-old female with a history of IVDA and cervical abscess who presents to the emergency department for complaints of increasing neck pain. She has a history of cervical spondylosis for which she previously had an anterior cervical fusion. In April she presented with an epidural abscess to the lumbar and cervical spine requiring emergent evacuation. The Gram stain showed evidence of MRSA infection. She was discharged to rehabilitation with plans for a 12 week course of IV vancomycin and rifampin. Within the past week, the patient complains of increasing neck pain and increasing swallowing difficulties for 24 hours. Due to the acute increase in symptoms, she was referred to the [facility] ED for further evaluation. Her cervical spine CT shows evidence of increasing kyphosis of the C3 vertebral body. Neurosurgery has been consulted for a surgical opinion. She currently denies any weakness to arms or legs. She denies any bowel or bladder dysfunction. 06/22: Patient removed cervical collar as it does not fit well on her. Also complains that her upper dentures were lost in the ED 06/23: c/o cervical pain requesting more pain medications, she is on [place] prn and Dilaudid for breakthrough pain. in bed eating breakfast, her collar was partially removed. 06/25: seen again with her cervical collar partially removed, and I again discussed with her the importance of maintaining her collar on. reports of stable chronic right upper extremity weakness, her cervical pain today is better controlled. 06/26: feeling a little better today, c/o nasal allergies requesting medication for this. denies neurological changes (Erinn Moura) Labs, Micro, & Vital Signs Results Date Time Temp Pulse Resp B/P Pulse Ox O2 Delivery O2 Flow Rate FiO2 06/26/16 08:00 97.0 81 18 164/84 99 06/26/16 08:00 97.2 65 18 135/69 98 06/26/16 04:00 97.8 75 18 164/88 98 06/26/16 00:00 98.0 72 18 129/77 98 06/25/16 20:00 98.4 71 16 133/76 100 06/25/16 18:00 16 06/25/16 17:50 16 06/25/16 16:48 97.4 67 17 147/77 100 06/26/16 07:00 Intake Total 2826 ml Balance 2826 ml Constitutional Vital Signs Date Time Temp Pulse Resp B/P Pulse Ox O2 Delivery O2 Flow Rate FiO2 06/26/16 08:00 97.0 81 18 164/84 99 06/26/16 08:00 97.2 65 18 135/69 98 06/26/16 04:00 97.8 75 18 164/88 98 06/26/16 00:00 98.0 72 18 129/77 98 06/25/16 20:00 98.4 71 16 133/76 100 06/25/16 18:00 16 06/25/16 17:50 16 06/25/16 16:48 97.4 67 17 147/77 100 06/26/16 07:00 Intake Total 2826 ml Balance 2826 ml (Erinn Moura) Review of Systems/Exam Exam Alert and oriented x 3. Appears comfortable, smiling, speech is fluent. Cervical spine: immobilized with [place] collar CN: Pupils 4 mm b/l, extraocular motors are intact Muscle strength: 4/5 right deltoid and biceps. 5/5 left deltoid, biceps, b/l triceps, manager photo in the upper extremities. 5/5 hip flexors, quads, hamstrings, 5/ 5 plantarflexion, dorsiflexion of the lower extremities. Sensory: intact to light touch throughout DTRs: knees 2+ b/l, Ajith's negative bilaterally. No ankle clonus. Plantars downgoing b/l. Skin: no cyanosis or erythema (Erinn Moura) Medications Current Medications Current Medications Medications (Trade) Dose Ordered Sig/Declan Route PRN Reason Start Time Stop Time Status Last Admin Dose Admin Sodium Chloride (NS 1000 ml Inj) 1,000 ml @ 100 mls/hr Q10H IV 06/21/16 04:30 06/26/16 12:35 Sodium Chloride (NS Flush) 2 ml BID IV FLUSH 06/21/16 09:00 06/26/16 08:31 Sodium Chloride 2 ml 2 ml UNSCH PRN IVF FLUSH AFTER USING IV ACCESS 06/21/16 08:15 06/22/16 23:50 Pharmacy Profile Note (Vancomycin Consult Pharmacy) 0 ml @ 0 mls/hr UNSCH OTHER 06/21/16 08:15 Acetaminophen/ Hydrocodone Bitart ([place] 5-325 Mg) 1 tab Q4H PRN PO PAIN 3-6 06/21/16 09:00 Acetaminophen/ Hydrocodone Bitart ([place] 5-325 Mg) 2 tab Q4H PRN PO PAIN 7-10 06/21/16 09:00 06/26/16 11:06 Acetaminophen 650 mg 650 mg Q4H PRN PO FEVER/ PAIN 1-2 06/21/16 09:00 Vancomycin HCl/ Sodium Chloride (Vancomycin Inj/ NS 250 ml Inj) 250 ml @ 250 mls/hr Q8H IV 06/21/16 13:00 06/26/16 12:32 Tamsulosin HCl (Flomax) 0.4 mg DAILY PO 06/22/16 09:00 06/26/16 08:30 Magnesium Hydroxide (Milk Of Magnesia Liq) 30 ml DAILY PRN PO CONSTIPATION 06/21/16 12:00 Docusate Sodium (Colace Liq) 100 mg Q12HR PRN PO CONSTIPATION 06/21/16 12:00 Rifampin (Rifampin) 300 mg Q12HR PO 06/21/16 21:00 06/26/16 08:30 Hydromorphone HCl (Dilaudid Pf Inj) 1 mg Q3HR PRN IV PUSH BREAKTHROUGH PAIN 06/22/16 14:00 06/26/16 14:27 Heparin Sodium (Porcine) (Heparin Inj) 5,000 units Q12HR SQ 06/23/16 21:00 06/26/16 08:30 Cetirizine HCl (ZyrTEC) 10 mg DAILY PRN PO SINUS ALLERGY 06/26/16 10:15 Gabapentin (Neurontin) 300 mg TID PO 06/26/16 13:00 06/26/16 12:32 (Erinn Moura) Medical Decision Making MDM Remarks 45 y/o female with history of IV Drug use, prevertebral cervical abscess with retropharyngeal drainage 05/15/[address] Oliver lumbar epidural abscess, lumbar laminectomy for evacuation on 05/29/[address] Oliver pt returns with c/o intractable cervical pain MRI C spine 06/21/16 shows prevertebral soft tissue abscess, C3 osteomyelitis with increased kyphosis at C3 (Erinn Moura) Plan Plan Remarks cont antibiotic treatment per ID cont cervical bracing with [place] collar at all times, I again discussed with the patient the importance of keeping her brace on at all times, also dw her to be very careful to avoid falls, call for assistance if needed stable neuro examination start zyrtec prn allergies (Erinn Moura) Attending Statement The exam, history, and the medical decision-making described in the above note were completed with the assistance of the mid-level provider. I reviewed and agree with the findings presented. I attest that I had a [id number] encounter with the patient on the same day, and personally performed and documented my assessment and findings in the medical record. (Uday Beard MD) Erinn Moura Jun 26, 2016 15:31 Uday Beard MD Jul 03, 2016 11:17
[2016-06-26 16:00] VITALS: BP 156/73; PULSE 68; RESP 18; TEMP 98.3; O2SAT 99
[2016-06-26] MEDS: CETIRIZINE HCL 10 MG TAB PO PRN (17:24)
[2016-06-26 20:00] VITALS: BP 147/88; PULSE 79; RESP 18; TEMP 98; O2SAT 96
[2016-06-27] VITALS: BP 99/54; PULSE 71; RESP 16; TEMP 97.2; O2SAT 98
[2016-06-27] MEDS: SODIUM CHLOR 0.9% 1000 ML INJ 1,000 ML IV SCH ×3 (00:02→20:30)
[2016-06-27] MEDS: ACETAMINOPHEN/HYDROcodone 325 MG/5 MG TAB PO PRN ×6 (01:52→22:59)
[2016-06-27] MEDS: HYDROmorphone HCL PF 1 MG/ML VIAL IV PUSH PRN ×5 (03:11→20:55)
[2016-06-27 04:00] VITALS: BP 129/61; PULSE 55; RESP 18; TEMP 97.5; O2SAT 99
[2016-06-27] MEDS: VANCOMYCIN 1,000 MG/NS 250 ML IV SCH ×6 (05:38→20:56)
[2016-06-27 06:15] LABS: AUTOMATED NEUTROPHIL # 3.1 TH/MM3 (1.8-7.7); BASOPHIL % 0.8 % (0.0-2.0); EOSINOPHIL # 0.3 TH/MM3 (0-0.4); EOSINOPHIL % 5.4 % (0.0-4.0); HEMATOCRIT 26.4 % (35.0-46.0); LYMPH % 30.1 % (9.0-44.0); LYMPHOCYTE # 1.7 TH/MM3 (1.0-4.8); MEAN CELL VOLUME 63.1 FL (80.0-100.0); MEAN CORPUSCULAR HEMOGLOBIN 19.9 PG (27.0-34.0); MEAN CORPUSCULAR HGB CONC 31.4 % (32.0-36.0); MONO % 7.3 % (0.0-8.0); NEUT % 56.4 % (16.0-70.0); PLATELET COUNT 315 TH/MM3 (150-450); RED BLOOD COUNT 4.18 MIL/MM3 (4.00-5.30); RED CELL DISTRIBUTION WIDTH 24.7 % (11.6-17.2); WHITE BLOOD COUNT 5.5 TH/MM3 (4.0-11.0)
[2016-06-27 06:16] LABS: HEMO FLAGS AUTO DIFF
[2016-06-27 06:54] LABS: BICARBONATE 28.2 MEQ/L (21.0-32.0); POTASSIUM 4.8 MEQ/L (3.5-5.1)
[2016-06-27 07:01] LABS: SCAN/DIFF AUTO DIFF CONFIRMED
[2016-06-27 08:00] VITALS: BP 125/65; PULSE 55; RESP 18; TEMP 97.4; O2SAT 99
[2016-06-27] MEDS: SODIUM CHLORIDE 0.9% FLUSH 10 ML FLUSH IV FLUSH SCH ×2 (08:21→20:56)
[2016-06-27] MEDS: TAMSULOSIN HCL 0.4 MG CAP PO SCH (08:22)
[2016-06-27] MEDS: RIFAMPIN 150 MG CAP PO SCH ×2 (08:22→20:56)
[2016-06-27] MEDS: GABAPENTIN 300 MG CAP PO SCH ×3 (08:22→16:50)
[2016-06-27] MEDS: HEPARIN SODIUM - SQ 10,000 UNITS/ML VIAL SQ SCH ×2 (08:22→20:57)
[2016-06-27 08:58] LABS: WESTERGREN SEDIMENTATION RATE 76 mm/hr (0-20)
--- NOTE | 2016-06-27 09:59 | HHI.PR ---
Subjective Remarks in no acute distress. pain is controlled. no fever. no new complaints. Objective Vitals Vital Signs Date Time Temp Pulse Resp B/P Pulse Ox O2 Delivery O2 Flow Rate FiO2 06/27/16 08:00 97.4 55 18 125/65 99 06/27/16 04:00 97.5 55 18 129/61 99 06/27/16 00:00 97.2 71 16 99/54 98 06/26/16 20:00 98.0 79 18 147/88 96 06/26/16 16:00 98.3 68 18 156/73 99 I/O 06/26/16 06/26/16 06/26/16 06/27/16 06/27/16 06/27/16 07:00 15:00 23:00 07:00 15:00 23:00 Intake Total 1173 ml 1825 ml 720 ml 480 ml Output Total 1500 ml Balance 1173 ml 325 ml 720 ml 480 ml Intake Oral 480 ml 960 ml 720 ml 480 ml IV Total 693 ml 865 ml Output Urine Total 1500 ml # Voids 3 3 2 # Bowel Movements 0 0 0 Result Diagram: 06/27/16 0810 06/27/16 0000 Imaging Last Impressions Cervical Spine MRI 06/21/16 0000 Signed Impressions: Service Date/Time: Tuesday, June 21, 2016 09:07 - CONCLUSION: There is a long segment of confluent soft tissue prominence and enhancement adjacent to the postoperative cervical spine consistent with infection. No discrete fluid collections are noted. Areas of abnormal marrow signal seen within the C3 vertebral body concerning for focal areas of osteomyelitis. There is enhancement and prominence of the posterior longitudinal ligament which causes mild mass effect upon the adjacent thecal sac without evidence of cord compression. No evidence of cord infarction or other signal abnormality. Shana Mcknight MD Cervical Spine CT 06/21/16 0000 Signed Impressions: Service Date/Time: Tuesday, June 21, 2016 05:49 - CONCLUSION: 1. Osteomyelitis with resulting osteolysis of the anterior portion of the C3 vertebral body and resulting focal kyphosis. This is a new finding the prior study. 2. Anterior fusion plate at C4-C5. 3. Significant paraspinal soft tissue swelling most pronounced anteriorly. Luigi Baeza Jr., MD Objective Remarks GENERAL: This is a well-nourished, well-developed patient, in no apparent distress. CARDIOVASCULAR: Regular rate and regular rhythm without murmurs, gallops, or rubs. RESPIRATORY: Clear to auscultation. Breath sounds equal bilaterally. No wheezes , rales, or rhonchi. GASTROINTESTINAL: Abdomen soft, non-tender, nondistended. Normal, active bowel sounds MUSCULOSKELETAL: Extremities without clubbing, cyanosis, or edema. NEURO: Alert & Oriented x4 to person, place, time, situation. Moves all ext x4 Procedures none Medications and IVs Current Medications Vancomycin HCl 1000 mg/Sodium Chloride 250 ml @ 250 mls/hr ONCE ONCE IV Last administered on 06/21/16 04:54; Start 06/21/16 at 04:30; Stop 06/21/16 at 05:29 ; Status DC Clindamycin Phosphate 900 mg/ Sodium Chloride 106 ml @ 212 mls/hr ONCE ONCE IV Last administered on 06/21/16 05:11; Start 06/21/16 at 04:30; Stop at 15:28; Status DC Ceftriaxone Sodium 1000 mg/ Sodium Chloride 100 ml @ 200 mls/hr ONCE ONCE IV Last administered on 06/21/16 04:53; Start 06/21/16 at 04:30; Stop 06/21/16 at 15:29; Status DC Sodium Chloride (NS 1000 ml Inj) 1,000 ml @ 100 mls/hr Q10H IV Last administered on 06/27/16 00:02; Start 06/21/16 at 04:30 Iohexol (Omnipaque 350 Inj) 89 ml STK-MED ONCE IV Last administered on 05:50; Start 06/21/16 at 05:50; Stop 06/21/16 at 05:51; Status DC Sodium Chloride (NS Flush) 2 ml BID IV FLUSH Last administered on 06/27/16 08: 21; Start 06/21/16 at 09:00 Sodium Chloride 2 ml 2 ml UNSCH PRN IVF FLUSH AFTER USING IV ACCESS Last administered on 06/22/16 23:50; Start 06/21/16 at 08:15 Pharmacy Profile Note 0 ml @ 0 mls/hr UNSCH OTHER ; Start 06/21/16 at 08:15 Ceftriaxone Sodium/Sodium Chloride (Rocephin Inj/NS Inj) 100 ml @ 200 mls/hr Q24H IV ; Start 06/22/16 at 06:00; Stop 06/22/16 at 06:00; Status DC Acetaminophen/ Hydrocodone Bitart ([place] 5-325 Mg) 1 tab Q4H PRN PO PAIN 3-6; Start 06/21/16 at 09:00 Acetaminophen/ Hydrocodone Bitart ([place] 5-325 Mg) 2 tab Q4H PRN PO PAIN 7-10 Last administered on 06/27/16 05:38; Start 06/21/16 at 09:00 Hydromorphone HCl (Dilaudid Pf Inj) 1 mg Q4H PRN IV PUSH BREAKTHROUGH PAIN Last administered on 06/22/16 11:09; Start 06/21/16 at 09:00; Stop 06/22/16 at 11:33; Status DC Acetaminophen 650 mg 650 mg Q4H PRN PO FEVER/ PAIN 1-2; Start 06/21/16 at 09:00 Vancomycin HCl/ Sodium Chloride (Vancomycin Inj/ NS 250 ml Inj) 250 ml @ 250 mls/hr Q8H IV Last administered on 06/27/16 05:38; Start 06/21/16 at 13:00 Miscellaneous Information SPECIFIC LAB TO BE ... ONCE ONCE XX Last administered on 06/22/16 05:35; Start 06/22/16 at 04:45; Stop 06/22/16 at 04:46 ; Status DC Gadodiamide (Omniscan Pf Inj) 13 ml STK-MED ONCE IV Last administered on 09:21; Start 06/21/16 at 09:21; Stop 06/21/16 at 09:22; Status DC Tamsulosin HCl (Flomax) 0.4 mg DAILY PO Last administered on 06/27/16 08:22; Start 06/22/16 at 09:00 Magnesium Hydroxide (Milk Of Magnesia Liq) 30 ml DAILY PRN PO CONSTIPATION; Start 06/21/16 at 12:00 Docusate Sodium (Colace Liq) 100 mg Q12HR PRN PO CONSTIPATION; Start 06/21/16 at 12:00 Rifampin (Rifampin) 300 mg Q12HR PO Last administered on 06/27/16 08:22; Start 06/21/16 at 21:00 Hydromorphone HCl (Dilaudid Pf Inj) 1 mg Q3HR PRN IV PUSH BREAKTHROUGH PAIN Last administered on 06/27/16 06:47; Start 06/22/16 at 14:00 Heparin Sodium (Porcine) (Heparin Inj) 5,000 units Q12HR SQ Last administered on 06/27/16 08:22; Start 06/23/16 at 21:00 Miscellaneous Information SPECIFIC LAB TO BE DRAWN:VANCOMYCIN TROUGH DATE TO... ONCE ONCE XX ; Start 06/25/16 at 04:45; Stop 06/25/16 at 04:46; Status DC Cetirizine HCl (ZyrTEC) 10 mg DAILY PRN PO SINUS ALLERGY Last administered on 17:24; Start 06/26/16 at 10:15 Gabapentin (Neurontin) 300 mg TID PO Last administered on 06/27/16 08:22; Start 06/26/16 at 13:00 A/P Assessment and Plan A/P - osteomyelitis of the cervical spine MRI of the cervical spine with a long segment of confluent soft tissue prominence and enhancement adjacent to the postoperative cervical spine consistent with infection with no discrete fluid collections. ESR > 140 at the time of presentation- now trending down - will check ESR weekly. ID and neurosurgery consults appreciated; continue Vanco and Rifampin. continue with pain control. 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 -anemia of chronic disease- stable- will monitor periodically. -DVT prophylaxis with SCD's/ subq Heparin- Fidelia Stratton MD Jun 27, 2016 09:59
[2016-06-27 12:00] VITALS: BP 139/76; PULSE 96; RESP 18; TEMP 98; O2SAT 98
--- NOTE | 2016-06-27 14:39 | HHI.NSPN ---
History Chief Complaint: Neck pain. Interval History Ms Rock is a 45-year-old female with a history of IVDA and cervical abscess who presents to the emergency department for complaints of increasing neck pain. She has a history of cervical spondylosis for which she previously had an anterior cervical fusion. In April she presented with an epidural abscess to the lumbar and cervical spine requiring emergent evacuation. The Gram stain showed evidence of MRSA infection. She was discharged to rehabilitation with plans for a 12 week course of IV vancomycin and rifampin. Within the past week, the patient complains of increasing neck pain and increasing swallowing difficulties for 24 hours. Due to the acute increase in symptoms, she was referred to the [facility] ED for further evaluation. Her cervical spine CT shows evidence of increasing kyphosis of the C3 vertebral body. Neurosurgery has been consulted for a surgical opinion. She currently denies any weakness to arms or legs. She denies any bowel or bladder dysfunction. 06/22: Patient removed cervical collar as it does not fit well on her. Also complains that her upper dentures were lost in the ED 06/23: c/o cervical pain requesting more pain medications, she is on [place] prn and Dilaudid for breakthrough pain. in bed eating breakfast, her collar was partially removed. 06/24/16: Pt complains of neck pain. No radiculopathy in UEs. no paresthesias in UEs. Cervical collar in place. 06/27/16: Pt complains of neck pain. No radiculopathy in UEs. No paresthesias in UEs. She had the front portion of the cervical collar off when I entered. I advised her she cannot remove the collar and has been told by other staff members. Review of Systems General: Negative for: fever, chills, insomnia Respiratory: Negative for: shortness of breath, cough, sputum Cardiovascular: Negative for: chest pain Gastrointestinal: Negative for: nausea, vomitting, diarrhea, constipation Exam Results Vital Signs Date Time Temp Pulse Resp B/P Pulse Ox O2 Delivery O2 Flow Rate FiO2 06/27/16 12:00 98.0 96 18 139/76 98 06/23/16 20:15 21 Intake and Output 06/26/16 06/26/16 06/27/16 08:00 16:00 00:00 Intake Total 1173 ml 1825 ml 720 ml Output Total 1500 ml Balance 1173 ml 325 ml 720 ml Physical Examination Resp: CTA bilaterally Heart: NSR no murmurs Abd: Soft positive bs Skin: No cyanosis or erythema Muscle: Right deltoid 4/5, Strength otherwise 5/5 in UEs. Neuro: Pt awake and alert. Follows commands well. Speech clear and appropriate. Sensation intact to light touch. Lab, Micro, Other Results Last Impressions Cervical Spine MRI 06/21/16 0000 Signed Impressions: Service Date/Time: Tuesday, June 21, 2016 09:07 - CONCLUSION: There is a long segment of confluent soft tissue prominence and enhancement adjacent to the postoperative cervical spine consistent with infection. No discrete fluid collections are noted. Areas of abnormal marrow signal seen within the C3 vertebral body concerning for focal areas of osteomyelitis. There is enhancement and prominence of the posterior longitudinal ligament which causes mild mass effect upon the adjacent thecal sac without evidence of cord compression. No evidence of cord infarction or other signal abnormality. Shana Mcknight MD Cervical Spine CT 06/21/16 0000 Signed Impressions: Service Date/Time: Tuesday, June 21, 2016 05:49 - CONCLUSION: 1. Osteomyelitis with resulting osteolysis of the anterior portion of the C3 vertebral body and resulting focal kyphosis. This is a new finding the prior study. 2. Anterior fusion plate at C4-C5. 3. Significant paraspinal soft tissue swelling most pronounced anteriorly. Luigi Baeza Jr., MD Laboratory Tests Test 06/27/16 06/27/16 00:00 08:10 Sodium Level 140 MEQ/L Potassium Level 4.8 MEQ/L Chloride Level 106 MEQ/L Carbon Dioxide Level 28.2 MEQ/L Anion Gap 6 MEQ/L Blood Urea Nitrogen 7 MG/DL Creatinine 0.45 MG/DL Estimat Glomerular Filtration 151 ML/MIN Rate Random Glucose 82 MG/DL Calcium Level 8.6 MG/DL C-Reactive Protein 0.65 MG/DL White Blood Count 5.5 TH/MM3 Red Blood Count 4.18 MIL/MM3 Hemoglobin 8.3 GM/DL Hematocrit 26.4 % Mean Corpuscular Volume 63.1 FL Mean Corpuscular Hemoglobin 19.9 PG Mean Corpuscular Hemoglobin 31.4 % Concent Red Cell Distribution Width 24.7 % Platelet Count 315 TH/MM3 Mean Platelet Volume 8.5 FL Neutrophils (%) (Auto) 56.4 % Lymphocytes (%) (Auto) 30.1 % Monocytes (%) (Auto) 7.3 % Eosinophils (%) (Auto) 5.4 % Basophils (%) (Auto) 0.8 % Neutrophils # (Auto) 3.1 TH/MM3 Lymphocytes # (Auto) 1.7 TH/MM3 Monocytes # (Auto) 0.4 TH/MM3 Eosinophils # (Auto) 0.3 TH/MM3 Basophils # (Auto) 0.0 TH/MM3 CBC Comment AUTO DIFF Differential Comment AUTO DIFF CONFIRMED Erythrocyte Sedimentation Rate 76 mm/hr 06/26/16 06/26/16 06/27/16 15:00 23:00 07:00 Intake Total 1825 ml 720 ml 480 ml Output Total 1500 ml Balance 325 ml 720 ml 480 ml Intake Oral 960 ml 720 ml 480 ml IV Total 865 ml Output Urine Total 1500 ml # Voids 3 2 # Bowel Movements 0 0 Medical Decision Making Impression and Plan A: 45 y/o FM with history of IV Drug use, prevertebral cervical abscess with retropharyngeal drainage 05/15/[address] Oliver lumbar epidural abscess, lumbar laminectomy for evacuation on 05/29/[address] Oliver pt returns with c/o intractable cervical pain MRI C spine 06/21/16 shows prevertebral soft tissue abscess, C3 osteomyelitis with increased kyphosis at C3 P: Continue to monitor neuro exam continue with Rehab efforts continue with cervical collar Continue with antibiotics. Yvan Quesaad Jun 27, 2016 14:39
[2016-06-27 16:00] VITALS: BP 106/58; PULSE 63; RESP 18; TEMP 97.8; O2SAT 98
[2016-06-27 20:00] VITALS: BP 140/69; PULSE 85; RESP 18; TEMP 98; O2SAT 98
[2016-06-28] VITALS: BP 108/52; PULSE 68; RESP 18; TEMP 98.3; O2SAT 97
[2016-06-28] MEDS: HYDROmorphone HCL PF 1 MG/ML VIAL IV PUSH PRN ×6 (00:55→21:08)
[2016-06-28] MEDS: ACETAMINOPHEN/HYDROcodone 325 MG/5 MG TAB PO PRN ×5 (02:17→18:46)
[2016-06-28 04:00] VITALS: BP 108/59; PULSE 65; RESP 18; TEMP 97.9; O2SAT 97
[2016-06-28] MEDS: VANCOMYCIN 1,000 MG/NS 250 ML IV SCH ×6 (05:27→21:04)
[2016-06-28] MEDS: SODIUM CHLOR 0.9% 1000 ML INJ 1,000 ML IV SCH ×3 (06:30→21:12)
[2016-06-28 08:29] VITALS: BP 120/58; PULSE 58; RESP 18; TEMP 98; O2SAT 98
[2016-06-28] MEDS: SODIUM CHLORIDE 0.9% FLUSH 10 ML FLUSH IV FLUSH SCH ×2 (09:00→21:00)
[2016-06-28] MEDS: GABAPENTIN 300 MG CAP PO SCH ×3 (09:08→18:46)
[2016-06-28] MEDS: RIFAMPIN 150 MG CAP PO SCH ×2 (09:08→21:04)
[2016-06-28] MEDS: TAMSULOSIN HCL 0.4 MG CAP PO SCH (09:08)
[2016-06-28] MEDS: HEPARIN SODIUM - SQ 10,000 UNITS/ML VIAL SQ SCH ×2 (09:09→21:04)
[2016-06-28] MEDS: CETIRIZINE HCL 10 MG TAB PO PRN (09:19)
--- NOTE | 2016-06-28 12:04 | HHI.PR ---
Subjective Remarks resting comfortably with no distress. pain is controlled. remains afebrile. d/w the RN and no acute issues over night. Objective Vitals Vital Signs Date Time Temp Pulse Resp B/P Pulse Ox O2 Delivery O2 Flow Rate FiO2 06/28/16 08:29 98.0 58 18 120/58 98 06/28/16 04:00 97.9 65 18 108/59 97 06/28/16 00:00 98.3 68 18 108/52 97 06/27/16 20:00 98.0 85 18 140/69 98 06/27/16 16:00 97.8 63 18 106/58 98 I/O 06/27/16 06/27/16 06/27/16 06/28/16 06/28/16 06/28/16 07:00 15:00 23:00 07:00 15:00 23:00 Intake Total 480 ml 1079 ml 848 ml 1138 ml Output Total 3 ml Balance 480 ml 1076 ml 848 ml 1138 ml Intake Oral 480 ml 600 ml 240 ml 480 ml IV Total 479 ml 608 ml 658 ml Output Urine Total 3 ml # Voids 2 1 2 # Bowel Movements 0 1 1 0 Result Diagram: 06/27/16 0810 06/27/16 0000 Imaging Last Impressions Cervical Spine MRI 06/21/16 0000 Signed Impressions: Service Date/Time: Tuesday, June 21, 2016 09:07 - CONCLUSION: There is a long segment of confluent soft tissue prominence and enhancement adjacent to the postoperative cervical spine consistent with infection. No discrete fluid collections are noted. Areas of abnormal marrow signal seen within the C3 vertebral body concerning for focal areas of osteomyelitis. There is enhancement and prominence of the posterior longitudinal ligament which causes mild mass effect upon the adjacent thecal sac without evidence of cord compression. No evidence of cord infarction or other signal abnormality. Shana Mcknight MD Cervical Spine CT 06/21/16 0000 Signed Impressions: Service Date/Time: Tuesday, June 21, 2016 05:49 - CONCLUSION: 1. Osteomyelitis with resulting osteolysis of the anterior portion of the C3 vertebral body and resulting focal kyphosis. This is a new finding the prior study. 2. Anterior fusion plate at C4-C5. 3. Significant paraspinal soft tissue swelling most pronounced anteriorly. Luigi Baeza Jr., MD Objective Remarks GENERAL: This is a well-nourished, well-developed patient, in no apparent distress. CARDIOVASCULAR: Regular rate and regular rhythm without murmurs, gallops, or rubs. RESPIRATORY: Clear to auscultation. Breath sounds equal bilaterally. No wheezes , rales, or rhonchi. GASTROINTESTINAL: Abdomen soft, non-tender, nondistended. Normal, active bowel sounds MUSCULOSKELETAL: Extremities without clubbing, cyanosis, or edema. NEURO: Alert & Oriented x4 to person, place, time, situation. Moves all ext x4 Procedures none Medications and IVs Current Medications Vancomycin HCl 1000 mg/Sodium Chloride 250 ml @ 250 mls/hr ONCE ONCE IV Last administered on 06/21/16 04:54; Start 06/21/16 at 04:30; Stop 06/21/16 at 05:29 ; Status DC Clindamycin Phosphate 900 mg/ Sodium Chloride 106 ml @ 212 mls/hr ONCE ONCE IV Last administered on 06/21/16 05:11; Start 06/21/16 at 04:30; Stop at 15:28; Status DC Ceftriaxone Sodium 1000 mg/ Sodium Chloride 100 ml @ 200 mls/hr ONCE ONCE IV Last administered on 06/21/16 04:53; Start 06/21/16 at 04:30; Stop 06/21/16 at 15:29; Status DC Sodium Chloride (NS 1000 ml Inj) 1,000 ml @ 100 mls/hr Q10H IV Last administered on 06/28/16 10:12; Start 06/21/16 at 04:30 Iohexol (Omnipaque 350 Inj) 89 ml STK-MED ONCE IV Last administered on 05:50; Start 06/21/16 at 05:50; Stop 06/21/16 at 05:51; Status DC Sodium Chloride (NS Flush) 2 ml BID IV FLUSH Last administered on 06/28/16 09: 00; Start 06/21/16 at 09:00 Sodium Chloride 2 ml 2 ml UNSCH PRN IVF FLUSH AFTER USING IV ACCESS Last administered on 06/22/16 23:50; Start 06/21/16 at 08:15 Pharmacy Profile Note 0 ml @ 0 mls/hr UNSCH OTHER ; Start 06/21/16 at 08:15 Ceftriaxone Sodium/Sodium Chloride (Rocephin Inj/NS Inj) 100 ml @ 200 mls/hr Q24H IV ; Start 06/22/16 at 06:00; Stop 06/22/16 at 06:00; Status DC Acetaminophen/ Hydrocodone Bitart ([place] 5-325 Mg) 1 tab Q4H PRN PO PAIN 3-6; Start 06/21/16 at 09:00 Acetaminophen/ Hydrocodone Bitart ([place] 5-325 Mg) 2 tab Q4H PRN PO PAIN 7-10 Last administered on 06/28/16 10:13; Start 06/21/16 at 09:00 Hydromorphone HCl (Dilaudid Pf Inj) 1 mg Q4H PRN IV PUSH BREAKTHROUGH PAIN Last administered on 06/22/16 11:09; Start 06/21/16 at 09:00; Stop 06/22/16 at 11:33; Status DC Acetaminophen 650 mg 650 mg Q4H PRN PO FEVER/ PAIN 1-2; Start 06/21/16 at 09:00 Vancomycin HCl/ Sodium Chloride (Vancomycin Inj/ NS 250 ml Inj) 250 ml @ 250 mls/hr Q8H IV Last administered on 06/28/16 05:27; Start 06/21/16 at 13:00 Miscellaneous Information SPECIFIC LAB TO BE ... ONCE ONCE XX Last administered on 06/22/16 05:35; Start 06/22/16 at 04:45; Stop 06/22/16 at 04:46 ; Status DC Gadodiamide (Omniscan Pf Inj) 13 ml STK-MED ONCE IV Last administered on 09:21; Start 06/21/16 at 09:21; Stop 06/21/16 at 09:22; Status DC Tamsulosin HCl (Flomax) 0.4 mg DAILY PO Last administered on 06/28/16 09:08; Start 06/22/16 at 09:00 Magnesium Hydroxide (Milk Of Magnesia Liq) 30 ml DAILY PRN PO CONSTIPATION; Start 06/21/16 at 12:00 Docusate Sodium (Colace Liq) 100 mg Q12HR PRN PO CONSTIPATION; Start 06/21/16 at 12:00 Rifampin (Rifampin) 300 mg Q12HR PO Last administered on 06/28/16 09:08; Start 06/21/16 at 21:00 Hydromorphone HCl (Dilaudid Pf Inj) 1 mg Q3HR PRN IV PUSH BREAKTHROUGH PAIN Last administered on 06/28/16 06:48; Start 06/22/16 at 14:00 Heparin Sodium (Porcine) (Heparin Inj) 5,000 units Q12HR SQ Last administered on 06/28/16 09:09; Start 06/23/16 at 21:00 Miscellaneous Information SPECIFIC LAB TO BE DRAWN:VANCOMYCIN TROUGH DATE TO... ONCE ONCE XX ; Start 06/25/16 at 04:45; Stop 06/25/16 at 04:46; Status DC Cetirizine HCl (ZyrTEC) 10 mg DAILY PRN PO SINUS ALLERGY Last administered on 09:19; Start 06/26/16 at 10:15 Gabapentin (Neurontin) 300 mg TID PO Last administered on 06/28/16 09:08; Start 06/26/16 at 13:00 A/P Assessment and Plan A/P - osteomyelitis of the cervical spine MRI of the cervical spine with a long segment of confluent soft tissue prominence and enhancement adjacent to the postoperative cervical spine consistent with infection with no discrete fluid collections. ESR > 140 at the time of presentation- now trending down - will check ESR weekly. ID and neurosurgery consults appreciated; on cervical collar- continue Vanco and Rifampin. continue with pain control. 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 -anemia of chronic disease- stable- will monitor periodically. -DVT prophylaxis with SCD's/ subq Heparin- Fidelia Stratton MD Jun 28, 2016 12:04
[2016-06-28 12:07] VITALS: BP 127/58; PULSE 65; RESP 18; TEMP 98.3; O2SAT 96
[2016-06-28 16:00] VITALS: BP 102/54; PULSE 57; RESP 18; TEMP 98.1; O2SAT 98
[2016-06-28 20:00] VITALS: BP 116/57; PULSE 65; RESP 20; TEMP 97.8; O2SAT 100
[2016-06-29] VITALS: BP 124/58; PULSE 64; RESP 18; TEMP 97.6; O2SAT 98
[2016-06-29] MEDS: ACETAMINOPHEN/HYDROcodone 325 MG/5 MG TAB PO PRN ×5 (00:38→22:50)
[2016-06-29] MEDS: HYDROmorphone HCL PF 1 MG/ML VIAL IV PUSH PRN ×4 (02:23→20:51)
[2016-06-29 04:00] VITALS: BP 111/58; PULSE 61; RESP 18; TEMP 97.9; O2SAT 98
[2016-06-29] MEDS: VANCOMYCIN 1,000 MG/NS 250 ML IV SCH ×6 (04:51→20:52)
[2016-06-29 08:00] VITALS: BP 117/59; PULSE 68; RESP 20; TEMP 98.3; O2SAT 99
[2016-06-29] MEDS: SODIUM CHLORIDE 0.9% FLUSH 10 ML FLUSH IV FLUSH SCH ×2 (09:00→20:52)
[2016-06-29] MEDS: RIFAMPIN 150 MG CAP PO SCH ×2 (09:45→20:52)
[2016-06-29] MEDS: HEPARIN SODIUM - SQ 10,000 UNITS/ML VIAL SQ SCH ×2 (09:45→20:51)
[2016-06-29] MEDS: GABAPENTIN 300 MG CAP PO SCH ×3 (09:45→17:24)
[2016-06-29] MEDS: TAMSULOSIN HCL 0.4 MG CAP PO SCH (09:45)
--- NOTE | 2016-06-29 10:16 | HHI.PR ---
Subjective Remarks resting comfortably with no distress. pain is controlled. no new complaints. Objective Vitals Vital Signs Date Time Temp Pulse Resp B/P Pulse Ox O2 Delivery O2 Flow Rate FiO2 06/29/16 08:00 98.3 68 20 117/59 99 06/29/16 06:15 16 06/29/16 04:00 97.9 61 18 111/58 98 06/29/16 00:00 97.6 64 18 124/58 98 06/28/16 20:00 97.8 65 20 116/57 100 06/28/16 16:00 98.1 57 18 102/54 98 06/28/16 12:07 98.3 65 18 127/58 96 I/O 06/28/16 06/28/16 06/28/16 06/29/16 06/29/16 06/29/16 07:00 15:00 23:00 07:00 15:00 23:00 Intake Total 1138 ml 2351 ml 220 ml 960 ml Balance 1138 ml 2351 ml 220 ml 960 ml Intake Oral 480 ml 1080 ml 220 ml 960 ml IV Total 658 ml 1271 ml # Voids 2 4 4 6 # Bowel Movements 0 1 Result Diagram: 06/27/16 0810 06/29/16 0709 Imaging Last Impressions Cervical Spine MRI 06/21/16 0000 Signed Impressions: Service Date/Time: Tuesday, June 21, 2016 09:07 - CONCLUSION: There is a long segment of confluent soft tissue prominence and enhancement adjacent to the postoperative cervical spine consistent with infection. No discrete fluid collections are noted. Areas of abnormal marrow signal seen within the C3 vertebral body concerning for focal areas of osteomyelitis. There is enhancement and prominence of the posterior longitudinal ligament which causes mild mass effect upon the adjacent thecal sac without evidence of cord compression. No evidence of cord infarction or other signal abnormality. Shana Mcknight MD Cervical Spine CT 06/21/16 0000 Signed Impressions: Service Date/Time: Tuesday, June 21, 2016 05:49 - CONCLUSION: 1. Osteomyelitis with resulting osteolysis of the anterior portion of the C3 vertebral body and resulting focal kyphosis. This is a new finding the prior study. 2. Anterior fusion plate at C4-C5. 3. Significant paraspinal soft tissue swelling most pronounced anteriorly. Luigi Baeza Jr., MD Objective Remarks GENERAL: This is a well-nourished, well-developed patient, in no apparent distress. CARDIOVASCULAR: Regular rate and regular rhythm without murmurs, gallops, or rubs. RESPIRATORY: Clear to auscultation. Breath sounds equal bilaterally. No wheezes , rales, or rhonchi. GASTROINTESTINAL: Abdomen soft, non-tender, nondistended. Normal, active bowel sounds MUSCULOSKELETAL: Extremities without clubbing, cyanosis, or edema. NEURO: Alert & Oriented x4 to person, place, time, situation. Moves all ext x4 Procedures none Medications and IVs Current Medications Vancomycin HCl 1000 mg/Sodium Chloride 250 ml @ 250 mls/hr ONCE ONCE IV Last administered on 06/21/16 04:54; Start 06/21/16 at 04:30; Stop 06/21/16 at 05:29 ; Status DC Clindamycin Phosphate 900 mg/ Sodium Chloride 106 ml @ 212 mls/hr ONCE ONCE IV Last administered on 06/21/16 05:11; Start 06/21/16 at 04:30; Stop at 15:28; Status DC Ceftriaxone Sodium 1000 mg/ Sodium Chloride 100 ml @ 200 mls/hr ONCE ONCE IV Last administered on 06/21/16 04:53; Start 06/21/16 at 04:30; Stop 06/21/16 at 15:29; Status DC Sodium Chloride (NS 1000 ml Inj) 1,000 ml @ 100 mls/hr Q10H IV Last administered on 06/28/16 21:12; Start 06/21/16 at 04:30 Iohexol (Omnipaque 350 Inj) 89 ml STK-MED ONCE IV Last administered on 05:50; Start 06/21/16 at 05:50; Stop 06/21/16 at 05:51; Status DC Sodium Chloride (NS Flush) 2 ml BID IV FLUSH Last administered on 06/28/16 09: 00; Start 06/21/16 at 09:00 Sodium Chloride 2 ml 2 ml UNSCH PRN IVF FLUSH AFTER USING IV ACCESS Last administered on 06/22/16 23:50; Start 06/21/16 at 08:15 Pharmacy Profile Note 0 ml @ 0 mls/hr UNSCH OTHER ; Start 06/21/16 at 08:15 Ceftriaxone Sodium/Sodium Chloride (Rocephin Inj/NS Inj) 100 ml @ 200 mls/hr Q24H IV ; Start 06/22/16 at 06:00; Stop 06/22/16 at 06:00; Status DC Acetaminophen/ Hydrocodone Bitart ([place] 5-325 Mg) 1 tab Q4H PRN PO PAIN 3-6; Start 06/21/16 at 09:00 Acetaminophen/ Hydrocodone Bitart ([place] 5-325 Mg) 2 tab Q4H PRN PO PAIN 7-10 Last administered on 06/29/16 09:47; Start 06/21/16 at 09:00 Hydromorphone HCl (Dilaudid Pf Inj) 1 mg Q4H PRN IV PUSH BREAKTHROUGH PAIN Last administered on 06/22/16 11:09; Start 06/21/16 at 09:00; Stop 06/22/16 at 11:33; Status DC Acetaminophen 650 mg 650 mg Q4H PRN PO FEVER/ PAIN 1-2; Start 06/21/16 at 09:00 Vancomycin HCl/ Sodium Chloride (Vancomycin Inj/ NS 250 ml Inj) 250 ml @ 250 mls/hr Q8H IV Last administered on 06/29/16 04:51; Start 06/21/16 at 13:00 Miscellaneous Information SPECIFIC LAB TO BE ... ONCE ONCE XX Last administered on 06/22/16 05:35; Start 06/22/16 at 04:45; Stop 06/22/16 at 04:46 ; Status DC Gadodiamide (Omniscan Pf Inj) 13 ml STK-MED ONCE IV Last administered on 09:21; Start 06/21/16 at 09:21; Stop 06/21/16 at 09:22; Status DC Tamsulosin HCl (Flomax) 0.4 mg DAILY PO Last administered on 06/29/16 09:45; Start 06/22/16 at 09:00 Magnesium Hydroxide (Milk Of Magnesia Liq) 30 ml DAILY PRN PO CONSTIPATION; Start 06/21/16 at 12:00 Docusate Sodium (Colace Liq) 100 mg Q12HR PRN PO CONSTIPATION; Start 06/21/16 at 12:00 Rifampin (Rifampin) 300 mg Q12HR PO Last administered on 06/29/16 09:45; Start 06/21/16 at 21:00 Hydromorphone HCl (Dilaudid Pf Inj) 1 mg Q3HR PRN IV PUSH BREAKTHROUGH PAIN Last administered on 06/29/16 06:39; Start 06/22/16 at 14:00 Heparin Sodium (Porcine) (Heparin Inj) 5,000 units Q12HR SQ Last administered on 06/29/16 09:45; Start 06/23/16 at 21:00 Miscellaneous Information SPECIFIC LAB TO BE DRAWN:VANCOMYCIN TROUGH DATE TO... ONCE ONCE XX ; Start 06/25/16 at 04:45; Stop 06/25/16 at 04:46; Status DC Cetirizine HCl (ZyrTEC) 10 mg DAILY PRN PO SINUS ALLERGY Last administered on 09:19; Start 06/26/16 at 10:15 Gabapentin (Neurontin) 300 mg TID PO Last administered on 06/29/16 09:45; Start 06/26/16 at 13:00 A/P Assessment and Plan A/P - osteomyelitis of the cervical spine MRI of the cervical spine with a long segment of confluent soft tissue prominence and enhancement adjacent to the postoperative cervical spine consistent with infection with no discrete fluid collections. ESR > 140 at the time of presentation- now trending down - will check ESR weekly. ID and neurosurgery consults appreciated; on cervical collar- continue Vanco and Rifampin. continue with pain control. 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 -anemia of chronic disease- stable- will monitor periodically. -DVT prophylaxis with SCD's/ subq Heparin- Discharge Planning when cleared by ID and neurosurgery. Fidelia Stratton MD Jun 29, 2016 10:16
--- NOTE | 2016-06-29 10:17 | HHI.NSPN ---
History Chief Complaint: Neck pain. Interval History Ms Rock is a 45-year-old female with a history of IVDA and cervical abscess who presents to the emergency department for complaints of increasing neck pain. She has a history of cervical spondylosis for which she previously had an anterior cervical fusion. In April she presented with an epidural abscess to the lumbar and cervical spine requiring emergent evacuation. The Gram stain showed evidence of MRSA infection. She was discharged to rehabilitation with plans for a 12 week course of IV vancomycin and rifampin. Within the past week, the patient complains of increasing neck pain and increasing swallowing difficulties for 24 hours. Due to the acute increase in symptoms, she was referred to the [facility] ED for further evaluation. Her cervical spine CT shows evidence of increasing kyphosis of the C3 vertebral body. Neurosurgery has been consulted for a surgical opinion. She currently denies any weakness to arms or legs. She denies any bowel or bladder dysfunction. 06/22: Patient removed cervical collar as it does not fit well on her. Also complains that her upper dentures were lost in the ED 06/23: c/o cervical pain requesting more pain medications, she is on [place] prn and Dilaudid for breakthrough pain. in bed eating breakfast, her collar was partially removed. 06/24/16: Pt complains of neck pain. No radiculopathy in UEs. no paresthesias in UEs. Cervical collar in place. 06/27/16: Pt complains of neck pain. No radiculopathy in UEs. No paresthesias in UEs. She had the front portion of the cervical collar off when I entered. I advised her she cannot remove the collar and has been told by other staff members. 06/29/16: Pt awake and alert. Ambulating around room. Cervical collar on and pt states she is being compliant with it. She has pain in the right shoulder today but no paresthesias in UEs. Review of Systems General: Negative for: fever, chills, insomnia Respiratory: Negative for: shortness of breath, cough, sputum Cardiovascular: Negative for: chest pain Gastrointestinal: Negative for: nausea, vomitting, diarrhea, constipation Exam Results Vital Signs Date Time Temp Pulse Resp B/P Pulse Ox O2 Delivery O2 Flow Rate FiO2 06/29/16 08:00 98.3 68 20 117/59 99 Intake and Output 06/28/16 06/28/16 06/29/16 08:00 16:00 00:00 Intake Total 1138 ml 2351 ml 220 ml Balance 1138 ml 2351 ml 220 ml Physical Examination Resp: CTA bilaterally Heart: NSR no murmurs Abd: Soft positive bs Skin: No cyanosis or erythema Muscle: Right deltoid 4/5, Strength otherwise 5/5 in UEs. Neuro: Pt awake and alert. Follows commands well. Speech clear and appropriate. Sensation intact to light touch. Lab, Micro, Other Results Last Impressions Cervical Spine MRI 06/21/16 0000 Signed Impressions: Service Date/Time: Tuesday, June 21, 2016 09:07 - CONCLUSION: There is a long segment of confluent soft tissue prominence and enhancement adjacent to the postoperative cervical spine consistent with infection. No discrete fluid collections are noted. Areas of abnormal marrow signal seen within the C3 vertebral body concerning for focal areas of osteomyelitis. There is enhancement and prominence of the posterior longitudinal ligament which causes mild mass effect upon the adjacent thecal sac without evidence of cord compression. No evidence of cord infarction or other signal abnormality. Shana Mcknight MD Cervical Spine CT 06/21/16 0000 Signed Impressions: Service Date/Time: Tuesday, June 21, 2016 05:49 - CONCLUSION: 1. Osteomyelitis with resulting osteolysis of the anterior portion of the C3 vertebral body and resulting focal kyphosis. This is a new finding the prior study. 2. Anterior fusion plate at C4-C5. 3. Significant paraspinal soft tissue swelling most pronounced anteriorly. Luigi Baeza Jr., MD Laboratory Tests Test 06/29/16 07:09 Creatinine 0.46 MG/DL Estimat Glomerular Filtration 148 ML/MIN Rate 06/28/16 06/28/16 06/29/16 15:00 23:00 07:00 Intake Total 2351 ml 220 ml 960 ml Balance 2351 ml 220 ml 960 ml Intake Oral 1080 ml 220 ml 960 ml IV Total 1271 ml # Voids 4 4 6 # Bowel Movements 1 Medical Decision Making Impression and Plan A: 45 y/o FM with history of IV Drug use, prevertebral cervical abscess with retropharyngeal drainage 2/16/[address] Oliver lumbar epidural abscess, lumbar laminectomy for evacuation on 05/29/[address] Oliver pt returns with c/o intractable cervical pain MRI C spine 06/21/16 shows prevertebral soft tissue abscess, C3 osteomyelitis with increased kyphosis at C3 P: Continue to monitor neuro exam continue with Rehab efforts continue with cervical collar Continue with antibiotics. Yvan Quesada Jun 29, 2016 10:17
[2016-06-29 12:00] VITALS: BP 179/73; PULSE 73; RESP 20; TEMP 98.2; O2SAT 100
[2016-06-29] MEDS: SODIUM CHLOR 0.9% 1000 ML INJ 1,000 ML IV SCH ×2 (12:35→20:52)
[2016-06-29 16:00] VITALS: BP 127/68; PULSE 81; RESP 20; TEMP 97.3; O2SAT 97
[2016-06-29 20:00] VITALS: BP 107/64; PULSE 81; RESP 18; TEMP 98.1; O2SAT 97
[2016-06-30] VITALS: BP 124/58; PULSE 85; RESP 20; TEMP 98; O2SAT 98
[2016-06-30] MEDS: HYDROmorphone HCL PF 1 MG/ML VIAL IV PUSH PRN ×6 (00:59→22:19)
[2016-06-30 04:00] VITALS: BP 139/69; PULSE 74; RESP 16; TEMP 98.4; O2SAT 97
[2016-06-30] MEDS: ACETAMINOPHEN/HYDROcodone 325 MG/5 MG TAB PO PRN ×5 (04:28→20:38)
[2016-06-30] MEDS: VANCOMYCIN 1,000 MG/NS 250 ML IV SCH ×6 (04:28→20:37)
[2016-06-30 08:00] VITALS: BP 157/81; PULSE 69; RESP 18; TEMP 98; O2SAT 100
[2016-06-30] MEDS: GABAPENTIN 300 MG CAP PO SCH ×3 (08:34→16:47)
[2016-06-30] MEDS: RIFAMPIN 150 MG CAP PO SCH ×2 (08:34→20:37)
[2016-06-30] MEDS: HEPARIN SODIUM - SQ 10,000 UNITS/ML VIAL SQ SCH ×2 (08:34→20:37)
[2016-06-30] MEDS: TAMSULOSIN HCL 0.4 MG CAP PO SCH (08:34)
[2016-06-30] MEDS: CETIRIZINE HCL 10 MG TAB PO PRN (08:34)
[2016-06-30] MEDS: SODIUM CHLOR 0.9% 1000 ML INJ 1,000 ML IV SCH ×3 (08:35→20:36)
[2016-06-30] MEDS: SODIUM CHLORIDE 0.9% FLUSH 10 ML FLUSH IV FLUSH SCH ×2 (08:35→20:37)
--- NOTE | 2016-06-30 09:23 | HHI.PR ---
Subjective Remarks resting comfortably with no distress. neck pain is fairly controlled. no fever or new complaints. Objective Vitals Vital Signs Date Time Temp Pulse Resp B/P Pulse Ox O2 Delivery O2 Flow Rate FiO2 06/30/16 08:00 98.0 69 18 157/81 100 06/30/16 04:00 98.4 74 16 139/69 97 06/30/16 00:00 98.0 85 20 124/58 98 06/29/16 20:00 98.1 81 18 107/64 97 06/29/16 17:20 20 06/29/16 16:00 97.3 81 20 127/68 97 06/29/16 12:34 18 06/29/16 12:00 98.2 73 20 179/73 100 I/O 06/29/16 06/29/16 06/29/16 06/30/16 06/30/16 06/30/16 07:00 15:00 23:00 07:00 15:00 23:00 Intake Total 960 ml 2626 ml 240 ml 0 ml Balance 960 ml 2626 ml 240 ml 0 ml Intake Oral 960 ml 240 ml 0 ml IV Total 2626 ml # Voids 6 3 0 1 # Bowel Movements 1 0 0 Result Diagram: 06/27/16 0810 06/29/16 0709 Imaging Last Impressions Cervical Spine MRI 06/21/16 0000 Signed Impressions: Service Date/Time: Tuesday, June 21, 2016 09:07 - CONCLUSION: There is a long segment of confluent soft tissue prominence and enhancement adjacent to the postoperative cervical spine consistent with infection. No discrete fluid collections are noted. Areas of abnormal marrow signal seen within the C3 vertebral body concerning for focal areas of osteomyelitis. There is enhancement and prominence of the posterior longitudinal ligament which causes mild mass effect upon the adjacent thecal sac without evidence of cord compression. No evidence of cord infarction or other signal abnormality. Shana Mcknight MD Cervical Spine CT 06/21/16 0000 Signed Impressions: Service Date/Time: Tuesday, June 21, 2016 05:49 - CONCLUSION: 1. Osteomyelitis with resulting osteolysis of the anterior portion of the C3 vertebral body and resulting focal kyphosis. This is a new finding the prior study. 2. Anterior fusion plate at C4-C5. 3. Significant paraspinal soft tissue swelling most pronounced anteriorly. Luigi Baeza Jr., MD Objective Remarks GENERAL: This is a well-nourished, well-developed patient, in no apparent distress. CARDIOVASCULAR: Regular rate and regular rhythm without murmurs, gallops, or rubs. RESPIRATORY: Clear to auscultation. Breath sounds equal bilaterally. No wheezes , rales, or rhonchi. GASTROINTESTINAL: Abdomen soft, non-tender, nondistended. Normal, active bowel sounds MUSCULOSKELETAL: Extremities without clubbing, cyanosis, or edema. NEURO: Alert & Oriented x4 to person, place, time, situation. Moves all ext x4 Procedures none Medications and IVs Current Medications Vancomycin HCl 1000 mg/Sodium Chloride 250 ml @ 250 mls/hr ONCE ONCE IV Last administered on 06/21/16 04:54; Start 06/21/16 at 04:30; Stop 06/21/16 at 05:29 ; Status DC Clindamycin Phosphate 900 mg/ Sodium Chloride 106 ml @ 212 mls/hr ONCE ONCE IV Last administered on 06/21/16 05:11; Start 06/21/16 at 04:30; Stop at 15:28; Status DC Ceftriaxone Sodium 1000 mg/ Sodium Chloride 100 ml @ 200 mls/hr ONCE ONCE IV Last administered on 06/21/16 04:53; Start 06/21/16 at 04:30; Stop 06/21/16 at 15:29; Status DC Sodium Chloride (NS 1000 ml Inj) 1,000 ml @ 100 mls/hr Q10H IV Last administered on 06/30/16 08:35; Start 06/21/16 at 04:30 Iohexol (Omnipaque 350 Inj) 89 ml STK-MED ONCE IV Last administered on 05:50; Start 06/21/16 at 05:50; Stop 06/21/16 at 05:51; Status DC Sodium Chloride (NS Flush) 2 ml BID IV FLUSH Last administered on 06/30/16 08: 35; Start 06/21/16 at 09:00 Sodium Chloride 2 ml 2 ml UNSCH PRN IVF FLUSH AFTER USING IV ACCESS Last administered on 06/22/16 23:50; Start 06/21/16 at 08:15 Pharmacy Profile Note 0 ml @ 0 mls/hr UNSCH OTHER ; Start 06/21/16 at 08:15 Ceftriaxone Sodium/Sodium Chloride (Rocephin Inj/NS Inj) 100 ml @ 200 mls/hr Q24H IV ; Start 06/22/16 at 06:00; Stop 06/22/16 at 06:00; Status DC Acetaminophen/ Hydrocodone Bitart (Quentin 5-325 Mg) 1 tab Q4H PRN PO PAIN 3-6; Start 06/21/16 at 09:00 Acetaminophen/ Hydrocodone Bitart (Quentin 5-325 Mg) 2 tab Q4H PRN PO PAIN 7-10 Last administered on 06/30/16 08:34; Start 06/21/16 at 09:00 Hydromorphone HCl (Dilaudid Pf Inj) 1 mg Q4H PRN IV PUSH BREAKTHROUGH PAIN Last administered on 06/22/16 11:09; Start 06/21/16 at 09:00; Stop 06/22/16 at 11:33; Status DC Acetaminophen 650 mg 650 mg Q4H PRN PO FEVER/ PAIN 1-2; Start 06/21/16 at 09:00 Vancomycin HCl/ Sodium Chloride (Vancomycin Inj/ NS 250 ml Inj) 250 ml @ 250 mls/hr Q8H IV Last administered on 06/30/16 04:28; Start 06/21/16 at 13:00 Miscellaneous Information SPECIFIC LAB TO BE ... ONCE ONCE XX Last administered on 06/22/16 05:35; Start 06/22/16 at 04:45; Stop 06/22/16 at 04:46 ; Status DC Gadodiamide (Omniscan Pf Inj) 13 ml STK-MED ONCE IV Last administered on 09:21; Start 06/21/16 at 09:21; Stop 06/21/16 at 09:22; Status DC Tamsulosin HCl (Flomax) 0.4 mg DAILY PO Last administered on 06/30/16 08:34; Start 06/22/16 at 09:00 Magnesium Hydroxide (Milk Of Magnesia Liq) 30 ml DAILY PRN PO CONSTIPATION; Start 06/21/16 at 12:00 Docusate Sodium (Colace Liq) 100 mg Q12HR PRN PO CONSTIPATION; Start 06/21/16 at 12:00 Rifampin (Rifampin) 300 mg Q12HR PO Last administered on 06/30/16 08:34; Start 06/21/16 at 21:00 Hydromorphone HCl (Dilaudid Pf Inj) 1 mg Q3HR PRN IV PUSH BREAKTHROUGH PAIN Last administered on 06/30/16 06:52; Start 06/22/16 at 14:00 Heparin Sodium (Porcine) (Heparin Inj) 5,000 units Q12HR SQ Last administered on 06/30/16 08:34; Start 06/23/16 at 21:00 Miscellaneous Information SPECIFIC LAB TO BE DRAWN:VANCOMYCIN TROUGH DATE TO... ONCE ONCE XX ; Start 06/25/16 at 04:45; Stop 06/25/16 at 04:46; Status DC Cetirizine HCl (ZyrTEC) 10 mg DAILY PRN PO SINUS ALLERGY Last administered on 08:34; Start 06/26/16 at 10:15 Gabapentin (Neurontin) 300 mg TID PO Last administered on 06/30/16 08:34; Start 06/26/16 at 13:00 A/P Assessment and Plan A/P - osteomyelitis of the cervical spine MRI of the cervical spine with a long segment of confluent soft tissue prominence and enhancement adjacent to the postoperative cervical spine consistent with infection with no discrete fluid collections. ESR > 140 at the time of presentation- now trending down - will check ESR weekly. ID and neurosurgery consults appreciated; on cervical collar- continue Vanco and Rifampin. continue with pain control. 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 -anemia of chronic disease- stable- will monitor periodically. -DVT prophylaxis with SCD's/ subq Heparin- Discharge Planning when cleared by ID and neurosurgery. Fidelia Stratton MD Jun 30, 2016 09:23
[2016-06-30 12:00] VITALS: BP 140/84; PULSE 93; RESP 18; TEMP 97.8; O2SAT 98
--- NOTE | 2016-06-30 13:27 | HHI.NSPN ---
Note Status Status: Progress Note Interval History Diagnosis Osteomyelitis Chief complaint: Neck pain Interval History Ms Rock is a 45-year-old female with a history of IVDA and cervical abscess who presents to the emergency department for complaints of increasing neck pain. She has a history of cervical spondylosis for which she previously had an anterior cervical fusion. In April she presented with an epidural abscess to the lumbar and cervical spine requiring emergent evacuation. The Gram stain showed evidence of MRSA infection. She was discharged to rehabilitation with plans for a 12 week course of IV vancomycin and rifampin. Within the past week, the patient complains of increasing neck pain and increasing swallowing difficulties for 24 hours. Due to the acute increase in symptoms, she was referred to the [place] ED for further evaluation. Her cervical spine CT shows evidence of increasing kyphosis of the C3 vertebral body. Neurosurgery has been consulted for a surgical opinion. She currently denies any weakness to arms or legs. She denies any bowel or bladder dysfunction. 06/22: Patient removed cervical collar as it does not fit well on her. Also complains that her upper dentures were lost in the ED 06/23: c/o cervical pain requesting more pain medications, she is on [place] prn and Dilaudid for breakthrough pain. in bed eating breakfast, her collar was partially removed. 06/24/16: Pt complains of neck pain. No radiculopathy in UEs. no paresthesias in UEs. Cervical collar in place. 06/27/16: Pt complains of neck pain. No radiculopathy in UEs. No paresthesias in UEs. She had the front portion of the cervical collar off when I entered. I advised her she cannot remove the collar and has been told by other staff members. 06/29/16: Pt awake and alert. Ambulating around room. Cervical collar on and pt states she is being compliant with it. She has pain in the right shoulder today but no paresthesias in UEs. 06/30: Patient is awake & alert. Cervical collar is in place. Still with neck pain that she states is better, no paresthesias. Labs, Micro, & Vital Signs Results Date Time Temp Pulse Resp B/P Pulse Ox O2 Delivery O2 Flow Rate FiO2 06/30/16 12:00 97.8 93 18 140/84 98 06/30/16 08:00 98.0 69 18 157/81 100 06/30/16 04:00 98.4 74 16 139/69 97 06/30/16 00:00 98.0 85 20 124/58 98 06/29/16 20:00 98.1 81 18 107/64 97 06/29/16 17:20 20 06/29/16 16:00 97.3 81 20 127/68 97 06/30/16 07:00 Intake Total 2866 ml Balance 2866 ml Constitutional Vital Signs Date Time Temp Pulse Resp B/P Pulse Ox O2 Delivery O2 Flow Rate FiO2 06/30/16 12:00 97.8 93 18 140/84 98 06/30/16 08:00 98.0 69 18 157/81 100 06/30/16 04:00 98.4 74 16 139/69 97 06/30/16 00:00 98.0 85 20 124/58 98 06/29/16 20:00 98.1 81 18 107/64 97 06/29/16 17:20 20 06/29/16 16:00 97.3 81 20 127/68 97 06/30/16 07:00 Intake Total 2866 ml Balance 2866 ml Review of Systems/Exam ROS General: Negative for: fever, chills, insomnia Neuro: RUE weakness present on admission w/o any change. Denies any headache, dizziness, numbness or tingling. Respiratory: Denies any shortness of breath, cough, sputum. Cardiovascular: Denies any chest pain or racing heart. Gastrointestinal: Denies any nausea, vomiting, diarrhea or constipation. Exam Neuro: AAOx3, readily interacts, speech clear & appropriate, follows commands; motor strength 5/5 except right deltoid 4/5; sensation intact to light touch. Medical Decision Making MDM Remarks Assessment: 1. Intractable cervical pain, improving 2. Osteomyelitis at C3 w/prevertebral soft tissue abscess per MRI cervical spine 3. Worsening kyphosis at C3 per MRI cervical spine 4. Prevertebral cervical abscess with retropharyngeal drainage 05/15/[address] Oliver 5. Lumbar epidural abscess & lumbar laminectomy for evacuation on 05/29/[address] Oliver Plan Plan Remarks 1. Antibiotics per Infectious Disease 2. Maintain [place] cervical collar at all times 3. Continue to monitor neuro exam 4. Activity as tolerated 5. Fusion vs cervical HALO due to worsening kyphosis at C3 Ino Marte Jun 30, 2016 13:27
[2016-06-30 16:00] VITALS: BP 147/90; PULSE 95; RESP 18; TEMP 98.6; O2SAT 95
--- NOTE | 2016-06-30 17:13 | HHI.IDPN ---
Subjective Subjective Remarks doing well no numbness/tingling ambulates improved neck pain no fever Antibiotics vanco\ rifampin Allergies: Coded Allergies: Penicillin (Verified Allergy, Intermediate, Rash, 06/21/16) Has taken Keflex without any problem *MDRO Multi-Drug Resistant Organism (Verified Adverse Reaction, Unknown, ) MRSA (blood) - 05/14/16, 05/16/16, 05/18/16; (sputum) - 05/17/16 MRSA (back abscess)-05/28/16 Uncoded Allergies: chemical allergy (Allergy, Severe, anaphalactic, 09/27/12) Objective . Vital Signs Date Time Temp Pulse Resp B/P Pulse Ox O2 Delivery O2 Flow Rate FiO2 06/30/16 12:00 97.8 93 18 140/84 98 06/30/16 08:00 98.0 69 18 157/81 100 06/30/16 04:00 98.4 74 16 139/69 97 06/30/16 00:00 98.0 85 20 124/58 98 06/29/16 20:00 98.1 81 18 107/64 97 06/29/16 17:20 20 06/29/16 06/29/16 06/30/16 15:00 23:00 07:00 Intake Total 2626 ml 240 ml 0 ml Balance 2626 ml 240 ml 0 ml Intake Oral 240 ml 0 ml IV Total 2626 ml # Voids 3 0 1 # Bowel Movements 1 0 0 . Laboratory Tests Test 06/29/16 07:09 Creatinine 0.46 MG/DL Estimat Glomerular Filtration 148 ML/MIN Rate Imaging [place] Last Impressions Cervical Spine MRI 06/21/16 0000 Signed Impressions: Service Date/Time: Tuesday, June 21, 2016 09:07 - CONCLUSION: There is a long segment of confluent soft tissue prominence and enhancement adjacent to the postoperative cervical spine consistent with infection. No discrete fluid collections are noted. Areas of abnormal marrow signal seen within the C3 vertebral body concerning for focal areas of osteomyelitis. There is enhancement and prominence of the posterior longitudinal ligament which causes mild mass effect upon the adjacent thecal sac without evidence of cord compression. No evidence of cord infarction or other signal abnormality. Shana Mcknight MD Cervical Spine CT 06/21/16 0000 Signed Impressions: Service Date/Time: Saturday, June 21, 2016 05:49 - CONCLUSION: 1. Osteomyelitis with resulting osteolysis of the anterior portion of the C3 vertebral body and resulting focal kyphosis. This is a new finding the prior study. 2. Anterior fusion plate at C4-C5. 3. Significant paraspinal soft tissue swelling most pronounced anteriorly. Luigi Baeza Jr., MD Physical Exam CONSTITUTIONAL/GENERAL: This is an adequately nourished patient, in no apparent distress. TUBES/LINES/DRAINS: RUE PICC in place wo eo infx SKIN: No jaundice, rashes, or lesions. Skin temperature appropriate. Not diaphoretic. NECK: Ccollar in place CARDIOVASCULAR: Regular rate and rhythm without murmurs, gallops, or rubs. No JVD. Peripheral pulses symmetric. RESPIRATORY/CHEST: Symmetric, unlabored respirations. Clear to auscultation. Breath sounds equal bilaterally. No wheezes, rales, or rhonchi. GASTROINTESTINAL: Abdomen soft, non-tender, nondistended. No hepato-splenomegaly , or palpable masses. No guarding. Bowel sounds present. MUSCULOSKELETAL: Extremities without clubbing, cyanosis, or edema. No calf tenderness. No mottling or clubbing. NEUROLOGICAL: Awake and alert. Motor and sensory grossly within normal limits. Follows commands. Normal speech Moves all extremities 5/5 upper and lower Assessment & Plan Remarks IVDU Recent MRSA endocarditis, tricuspid valve Persistent and progressive C 3 osteomyelitis progressed to osteolysis resulting in focal kyphosis - recent retropharyngeal-prevertebral abscess extending down to the previous anterior cervical instrumentation, MRSA ; sp evacuation - imcompleted VANCO/RIf course Lumbar epidural abscess and intradural abscess sp Left L1-2 and left L5-S1 semi- laminectomy, evacuation of epidural and intradural abscess and evacuation left L5 level lumbar paraspinous muscle abscess - cont vancomycin and rifampin for 3mos then likley lifelong suppression with doxycycline or bactrim - will repeatr mRI ? this or next week keep vancopmycin trough close to 20 cont rifampin monitor LFTs serial ESR every week awaiting neurosurgery rec's Dina Carlos MD Jun 30, 2016 17:13
[2016-06-30 20:00] VITALS: BP 118/59; PULSE 109; RESP 22; TEMP 97.9; O2SAT 96
[2016-07-01] VITALS: BP 93/59; PULSE 81; RESP 20; TEMP 98.5; O2SAT 96
[2016-07-01] MEDS: ACETAMINOPHEN/HYDROcodone 325 MG/5 MG TAB PO PRN ×6 (00:52→22:36)
[2016-07-01] MEDS: HYDROmorphone HCL PF 1 MG/ML VIAL IV PUSH PRN ×5 (02:39→19:57)
[2016-07-01 04:00] VITALS: BP 131/66; PULSE 85; RESP 22; TEMP 98.1; O2SAT 96
[2016-07-01] MEDS ORDERED: PHARMACY ORDERED LAB ONE (04:45)
[2016-07-01] MEDS: VANCOMYCIN 1,000 MG/NS 250 ML IV SCH ×2 (05:07)
[2016-07-01 05:56] LABS: VANCOMYCIN TROUGH 25.7 MCG/ML (5.0-10.0)
[2016-07-01 08:00] VITALS: BP 129/73; PULSE 74; RESP 18; TEMP 98.3; O2SAT 97
[2016-07-01] MEDS: SODIUM CHLOR 0.9% 1000 ML INJ 1,000 ML IV SCH (08:27)
[2016-07-01] MEDS: TAMSULOSIN HCL 0.4 MG CAP PO SCH (08:28)
[2016-07-01] MEDS: SODIUM CHLORIDE 0.9% FLUSH 10 ML FLUSH IV FLUSH SCH ×2 (08:28→19:57)
[2016-07-01] MEDS: HEPARIN SODIUM - SQ 10,000 UNITS/ML VIAL SQ SCH ×2 (08:28→19:56)
[2016-07-01] MEDS: RIFAMPIN 150 MG CAP PO SCH ×2 (08:28→19:57)
[2016-07-01] MEDS: GABAPENTIN 300 MG CAP PO SCH ×3 (08:28→18:17)
[2016-07-01] MEDS: CETIRIZINE HCL 10 MG TAB PO PRN (08:35)
[2016-07-01 12:00] VITALS: BP 141/72; PULSE 70; RESP 18; TEMP 97.6; O2SAT 97
[2016-07-01 16:00] VITALS: BP 141/67; PULSE 69; RESP 18; TEMP 98; O2SAT 97
[2016-07-01] MEDS: VANCOMYCIN INJ 1,250 MG in SODIUM CHLOR 0.9% 250 ML INJ 250 ML IV SCH (16:06)
--- NOTE | 2016-07-01 16:40 | HHI.PR ---
Subjective Remarks Follow-up for cervical osteomyelitis. Ms. Rock is currently doing well. Denies any fever, chills. Denies any chest pain, shortness of breath. Wants to go home. Objective Vitals Vital Signs Date Time Temp Pulse Resp B/P Pulse Ox O2 Delivery O2 Flow Rate FiO2 07/01/16 12:00 97.6 70 18 141/72 97 07/01/16 09:16 Room Air 21 07/01/16 08:00 98.3 74 18 129/73 97 07/01/16 04:00 98.1 85 22 131/66 96 07/01/16 04:00 Room Air 07/01/16 00:00 98.5 81 20 93/59 96 07/01/16 00:00 Room Air 06/30/16 20:00 97.9 109 22 118/59 96 06/30/16 20:00 Room Air I/O 06/30/16 06/30/16 06/30/16 07/01/16 07/01/16 07/01/16 07:00 15:00 23:00 07:00 15:00 23:00 Intake Total 0 ml 935 ml 1236 ml 1269 ml Balance 0 ml 935 ml 1236 ml 1269 ml Intake Oral 0 ml 240 ml 480 ml IV Total 935 ml 996 ml 789 ml # Voids 1 1 1 # Bowel Movements 0 1 0 Result Diagram: 06/27/16 0810 07/01/16 0505 Imaging Last Impressions Cervical Spine MRI 06/21/16 0000 Signed Impressions: Service Date/Time: Tuesday, June 21, 2016 09:07 - CONCLUSION: There is a long segment of confluent soft tissue prominence and enhancement adjacent to the postoperative cervical spine consistent with infection. No discrete fluid collections are noted. Areas of abnormal marrow signal seen within the C3 vertebral body concerning for focal areas of osteomyelitis. There is enhancement and prominence of the posterior longitudinal ligament which causes mild mass effect upon the adjacent thecal sac without evidence of cord compression. No evidence of cord infarction or other signal abnormality. Shana Mcknight MD Cervical Spine CT 06/21/16 0000 Signed Impressions: Service Date/Time: Tuesday, June 21, 2016 05:49 - CONCLUSION: 1. Osteomyelitis with resulting osteolysis of the anterior portion of the C3 vertebral body and resulting focal kyphosis. This is a new finding the prior study. 2. Anterior fusion plate at C4-C5. 3. Significant paraspinal soft tissue swelling most pronounced anteriorly. Luigi Baeza Jr., MD Objective Remarks GENERAL: Alert, oriented 3, NAD. SKIN: Warm and dry. HEAD: Normocephalic. EYES: No scleral icterus. No injection or drainage. NECK: Supple, trachea midline. No JVD or lymphadenopathy. CARDIOVASCULAR: Regular rate and rhythm without murmurs, gallops, or rubs. RESPIRATORY: Breath sounds equal bilaterally. No accessory muscle use. GASTROINTESTINAL: Abdomen soft, non-tender, nondistended. MUSCULOSKELETAL: No cyanosis, or edema. BACK: Nontender without obvious deformity. No CVA tenderness. Procedures none A/P Problem List: (1) Osteomyelitis of cervical spine ICD Code: M46.22 Status: Acute Assessment and Plan Ms. Rock is a 45 y/o female who presented to ER with worsening neck pain. she was admitted to this hospital about last month with MRSA bacteremia, cervical prevertebral, lumbar epidural abscess and endocarditis. she underwent I/D of the abscesses and discharged to rehab with IV Vancomycin. she says that she went home from rehab last week and since then she's been having worsening neck pain. she has some tingling of both hands and feet. she had some night sweats but there's no definite report of fevers at home. - C3 osteomyelitis with development of significant kyphosis above previous C4-5 fusion. - MRI of the cervical spine with a long segment of confluent soft tissue prominence and enhancement adjacent to the postoperative cervical spine consistent with infection - ESR > 140 at the time of presentation- now trending down - will check ESR weekly. - ID and neurosurgery consults appreciated - Currently on cervical collar, patient is refusing halo. - Per neurosurgeon, Dr. Oliver, patient will eventually need further anterior- posterior cervical spine surgery for stabilization. - continue Vancomycin IV and Rifampin 300mg PO Q12hrs. - continue with pain control with [place], Dilaudid. - Paratracheal-retropharyngeal abscess - previously drained. MRI indicates residual abscess. - s/p lumbar laminectomy evacuation of lumbar epidural and paraspinous abscess - History of MRSA bacteremia and tricuspid endocarditis - anemia of chronic disease- stable - will monitor periodically. Hgb is around 8.3. Full code. Heparin SQ. [place] DO Jul 01, 2016 16:40
--- NOTE | 2016-07-01 18:44 | HHI.NSPN ---
History Chief Complaint: Neck pain. Interval History Patient status post evacuation of cervical prevertebral abscess with some question of recurrence after antibiotics were apparently discontinued at the correction facility. Status post lumbar laminectomy evacuation of epidural and paraspinous muscle abscess. Exam Results Vital Signs Date Time Temp Pulse Resp B/P Pulse Ox O2 Delivery O2 Flow Rate FiO2 07/01/16 16:00 98.0 69 18 141/67 97 07/01/16 09:16 Room Air 21 Intake and Output 06/30/16 06/30/16 07/01/16 08:00 16:00 00:00 Intake Total 0 ml 935 ml 1236 ml Balance 0 ml 935 ml 1236 ml Physical Examination Awake and alert. Speech clear and appropriate Mild weakness left deltoid without significant pain with testing Otherwise good strength major flexion and extension groups all extremities Ajith's absent No ankle clonus Her gait is steady. She is ambulating with a cervical collar in place which appears to be fitting well. She has no complaint of significant neck pain while ambulating. Lab, Micro, Other Results Laboratory Tests Test 07/01/16 05:05 Creatinine 0.58 MG/DL Estimat Glomerular Filtration 113 ML/MIN Rate Vancomycin Level Trough 25.7 MCG/ML Medical Decision Making Impression and Plan Impression: 1. Paratracheal-retropharyngeal abscess in the neck-previously drained with some evidence of residual/recurrent abscess on most recent MRI 2. Status post lumbar laminectomy evacuation of lumbar epidural and paraspinous abscess 3. C3 osteomyelitis was development of significant kyphosis above previous C4- 5 fusion Plan: Discussed with patient at length. It is felt that a halo would be most appropriate at this point to try to maintain better control of the progressive cervical kyphosis. She presently is refusing a halo, wishes to maintain cervical collar. Advised not to flex her neck including no thick pillows. Signs and symptoms watch were discussed She will eventually require further anterior-posterior cervical spine surgery for stabilization. Presently continuing IV antibiotics She is stable for discharge home from a neurosurgery standpoint with continued IV antibiotics per infectious disease recommendations. I advised her of the risk of spinal cord injury including possible paralysis in the event of further compression of the C3 vertebral body with increased kyphosis or significant trauma to the neck including a fall. I advised her that it would be safer for her to be in a halo brace, but she is again adamant that she not have a halo brace. She appears to understand the risks involved. We will recheck a cervical spine x-ray in approximately 2 weeks. She will notify our office if any significant new symptoms or any deficit arises. Aravind Oliver MD Jul 01, 2016 18:44
[2016-07-01 20:00] VITALS: BP 125/67; PULSE 117; RESP 20; TEMP 98; O2SAT 95
[2016-07-02] VITALS: BP 123/74; PULSE 97; RESP 20; TEMP 97.2; O2SAT 98
[2016-07-02] MEDS: HYDROmorphone HCL PF 1 MG/ML VIAL IV PUSH PRN ×6 (00:38→22:17)
[2016-07-02] MEDS: ACETAMINOPHEN/HYDROcodone 325 MG/5 MG TAB PO PRN ×5 (03:40→20:32)
[2016-07-02 04:00] VITALS: BP 99/55; PULSE 71; RESP 18; TEMP 97; O2SAT 95
[2016-07-02] MEDS: VANCOMYCIN INJ 1,250 MG in SODIUM CHLOR 0.9% 250 ML INJ 250 ML IV SCH ×2 (05:41→16:08)
[2016-07-02] MEDS: GABAPENTIN 300 MG CAP PO SCH ×3 (07:49→18:17)
[2016-07-02] MEDS: TAMSULOSIN HCL 0.4 MG CAP PO SCH (07:49)
[2016-07-02] MEDS: HEPARIN SODIUM - SQ 10,000 UNITS/ML VIAL SQ SCH ×2 (07:49→20:32)
[2016-07-02] MEDS: RIFAMPIN 150 MG CAP PO SCH ×2 (07:50→20:31)
[2016-07-02] MEDS: SODIUM CHLORIDE 0.9% FLUSH 10 ML FLUSH IV FLUSH SCH ×2 (07:50→20:31)
[2016-07-02] MEDS: CETIRIZINE HCL 10 MG TAB PO PRN (07:57)
[2016-07-02] MEDS: SODIUM CHLOR 0.9% 1000 ML INJ 1,000 ML IV SCH ×3 (07:58→20:33)
[2016-07-02 08:05] VITALS: BP 117/55; PULSE 75; RESP 18; TEMP 98; O2SAT 98
[2016-07-02 12:06] VITALS: BP 103/55; PULSE 75; RESP 18; TEMP 98.6; O2SAT 98
[2016-07-02 16:05] VITALS: BP 131/72; PULSE 70; RESP 18; TEMP 98.2; O2SAT 98
--- NOTE | 2016-07-02 17:27 | HHI.PR ---
Subjective Remarks Follow-up for cervical osteomyelitis. Ms. Rock is doing well. Denies any chest pain, shortness of breath, fever or chills. She is embarking well. She wants to go home. Objective Vitals Vital Signs Date Time Temp Pulse Resp B/P Pulse Ox O2 Delivery O2 Flow Rate FiO2 07/02/16 12:06 98.6 75 18 103/55 98 07/02/16 08:52 Room Air 21 07/02/16 08:05 98.0 75 18 117/55 98 07/02/16 04:00 97.0 71 18 99/55 95 07/02/16 00:00 97.2 97 20 123/74 98 07/01/16 20:27 18 07/01/16 20:00 98.0 117 20 125/67 95 I/O 07/01/16 07/01/16 07/01/16 07/02/16 07/02/16 07/02/16 07:00 15:00 23:00 07:00 15:00 23:00 Intake Total 1269 ml 960 ml Balance 1269 ml 960 ml Intake Oral 480 ml 960 ml IV Total 789 ml # Voids 1 3 3 # Bowel Movements 0 1 Result Diagram: 07/01/16 0505 Imaging Last Impressions Cervical Spine MRI 06/21/16 0000 Signed Impressions: Service Date/Time: Tuesday, June 21, 2016 09:07 - CONCLUSION: There is a long segment of confluent soft tissue prominence and enhancement adjacent to the postoperative cervical spine consistent with infection. No discrete fluid collections are noted. Areas of abnormal marrow signal seen within the C3 vertebral body concerning for focal areas of osteomyelitis. There is enhancement and prominence of the posterior longitudinal ligament which causes mild mass effect upon the adjacent thecal sac without evidence of cord compression. No evidence of cord infarction or other signal abnormality. Shana Mcknight MD Cervical Spine CT 06/21/16 0000 Signed Impressions: Service Date/Time: Tuesday, June 21, 2016 05:49 - CONCLUSION: 1. Osteomyelitis with resulting osteolysis of the anterior portion of the C3 vertebral body and resulting focal kyphosis. This is a new finding the prior study. 2. Anterior fusion plate at C4-C5. 3. Significant paraspinal soft tissue swelling most pronounced anteriorly. Luigi Baeza Jr., MD Objective Remarks GENERAL: Alert, oriented 3, NAD. SKIN: Warm and dry. HEAD: Normocephalic. EYES: No scleral icterus. No injection or drainage. NECK: Supple, trachea midline. No JVD or lymphadenopathy. CARDIOVASCULAR: Regular rate and rhythm without murmurs, gallops, or rubs. RESPIRATORY: Breath sounds equal bilaterally. No accessory muscle use. GASTROINTESTINAL: Abdomen soft, non-tender, nondistended. MUSCULOSKELETAL: No cyanosis, or edema. BACK: Nontender without obvious deformity. No CVA tenderness. Procedures none A/P Problem List: (1) Osteomyelitis of cervical spine ICD Code: M46.22 Status: Acute Assessment and Plan Ms. Rock is a 45 y/o female who presented to ER with worsening neck pain. she was admitted to this hospital about last month with MRSA bacteremia, cervical prevertebral, lumbar epidural abscess and endocarditis. she underwent I/D of the abscesses and discharged to rehab with IV Vancomycin. she says that she went home from rehab last week and since then she's been having worsening neck pain. she has some tingling of both hands and feet. she had some night sweats but there's no definite report of fevers at home. - C3 osteomyelitis with development of significant kyphosis above previous C4-5 fusion. - MRI of the cervical spine with a long segment of confluent soft tissue prominence and enhancement adjacent to the postoperative cervical spine consistent with infection - ESR > 140 at the time of presentation- now trending down - will check ESR weekly. - ID and neurosurgery consults appreciated - Currently on cervical collar, patient is refusing halo. - Per neurosurgeon, Dr. Oliver, patient will eventually need further anterior- posterior cervical spine surgery for stabilization. - continue Vancomycin IV and Rifampin 300mg PO Q12hrs. - continue with pain control with [place], Dilaudid. - Discussed with infectious disease on 07/02/2016. Potentially with good place a PICC line and arrange home health for IV antibiotics. - There is no reasonable suspicion over IV access abuse in the hospital or at the SNF. - Blood cx negative in this hospitalization. - Paratracheal-retropharyngeal abscess - previously drained. MRI indicates residual abscess. - s/p lumbar laminectomy evacuation of lumbar epidural and paraspinous abscess - History of MRSA bacteremia and tricuspid endocarditis - anemia of chronic disease- stable - will monitor periodically. Hgb is around 8.3. Full code. Heparin SQ. [place] Stone DO Jul 02, 2016 5:27 pm
[2016-07-02 20:00] VITALS: BP 127/69; PULSE 81; RESP 16; TEMP 98.3; O2SAT 100
[2016-07-03] VITALS: BP 126/61; PULSE 75; RESP 18; TEMP 98.1; O2SAT 97
[2016-07-03] MEDS: ACETAMINOPHEN/HYDROcodone 325 MG/5 MG TAB PO PRN ×6 (00:44→21:37)
[2016-07-03] MEDS: HYDROmorphone HCL PF 1 MG/ML VIAL IV PUSH PRN ×6 (02:46→23:47)
[2016-07-03 04:00] VITALS: BP 118/59; PULSE 69; RESP 18; TEMP 97.9; O2SAT 96
[2016-07-03] MEDS ORDERED: PHARMACY ORDERED LAB ONE (04:45)
[2016-07-03] MEDS: SODIUM CHLOR 0.9% 1000 ML INJ 1,000 ML IV SCH ×2 (04:53→20:03)
[2016-07-03] MEDS: VANCOMYCIN INJ 1,250 MG in SODIUM CHLOR 0.9% 250 ML INJ 250 ML IV SCH (04:53)
[2016-07-03] MEDS: RIFAMPIN 150 MG CAP PO SCH ×2 (08:27→20:00)
[2016-07-03] MEDS: GABAPENTIN 300 MG CAP PO SCH ×3 (08:27→18:00)
[2016-07-03] MEDS: TAMSULOSIN HCL 0.4 MG CAP PO SCH (08:28)
[2016-07-03] MEDS: HEPARIN SODIUM - SQ 10,000 UNITS/ML VIAL SQ SCH ×2 (08:28→19:59)
[2016-07-03] MEDS: SODIUM CHLORIDE 0.9% FLUSH 10 ML FLUSH IV FLUSH SCH ×2 (08:30→20:01)
[2016-07-03 08:41] VITALS: BP 125/67; PULSE 70; RESP 17; TEMP 98; O2SAT 98
[2016-07-03] MEDS: CETIRIZINE HCL 10 MG TAB PO PRN (09:59)
[2016-07-03 12:09] VITALS: BP 120/72; PULSE 109; RESP 18; TEMP 98.3; O2SAT 99
[2016-07-03 16:05] VITALS: BP 132/70; PULSE 109; RESP 18; TEMP 97.8; O2SAT 97
--- NOTE | 2016-07-03 16:56 | HHI.PR ---
Subjective Remarks Follow-up for cervical osteomyelitis. Ms. Rock is doing well. She badly wants to go home. Denies any chest pain, shortness of breath, fever or chills. I called infectious disease Dr. Carlos who was in a meeting. Dr. Carlos will contact me later to discuss regarding patient's IV antibiotics. Objective Vitals Vital Signs Date Time Temp Pulse Resp B/P Pulse Ox O2 Delivery O2 Flow Rate FiO2 07/03/16 13:24 16 07/03/16 12:09 98.3 109 18 120/72 99 07/03/16 09:00 99 Room Air 07/03/16 08:41 98.0 70 17 125/67 98 07/03/16 04:00 97.9 69 18 118/59 96 07/03/16 04:00 Room Air 07/03/16 00:00 98.1 75 18 126/61 97 07/03/16 00:00 Room Air 07/02/16 20:00 98.3 81 16 127/69 100 07/02/16 20:00 Room Air I/O 07/02/16 07/02/16 07/02/16 07/03/16 07/03/16 07/03/16 07:00 15:00 23:00 07:00 15:00 23:00 Intake Total 480 ml 1224 ml 1357 ml Balance 480 ml 1224 ml 1357 ml Intake Oral 480 ml 240 ml 480 ml IV Total 984 ml 877 ml # Voids 3 5 4 3 # Bowel Movements 1 0 0 Result Diagram: 07/03/16 0521 Objective Remarks GENERAL: Alert, oriented 3, NAD. SKIN: Warm and dry. HEAD: Normocephalic. EYES: No scleral icterus. No injection or drainage. NECK: Supple, trachea midline. No JVD or lymphadenopathy. CARDIOVASCULAR: Regular rate and rhythm without murmurs, gallops, or rubs. RESPIRATORY: Breath sounds equal bilaterally. No accessory muscle use. GASTROINTESTINAL: Abdomen soft, non-tender, nondistended. MUSCULOSKELETAL: No cyanosis, or edema. BACK: Nontender without obvious deformity. No CVA tenderness. Procedures none A/P Problem List: (1) Osteomyelitis of cervical spine ICD Code: M46.22 Status: Acute Assessment and Plan Ms. Rock is a 45 y/o female who presented to ER with worsening neck pain. she was admitted to this hospital about last month with MRSA bacteremia, cervical prevertebral, lumbar epidural abscess and endocarditis. she underwent I/D of the abscesses and discharged to rehab with IV Vancomycin. she says that she went home from rehab last week and since then she's been having worsening neck pain. she has some tingling of both hands and feet. she had some night sweats but there's no definite report of fevers at home. - C3 osteomyelitis with development of significant kyphosis above previous C4-5 fusion. - MRI of the cervical spine with a long segment of confluent soft tissue prominence and enhancement adjacent to the postoperative cervical spine consistent with infection - ESR > 140 at the time of presentation- now trending down - will check ESR weekly. - ID and neurosurgery consults appreciated - Currently on cervical collar, patient is refusing halo. - Per neurosurgeon, Dr. Oliver, patient will eventually need further anterior- posterior cervical spine surgery for stabilization. - continue Vancomycin IV and Rifampin 300mg PO Q12hrs. - continue with pain control with [place], Dilaudid. - Discussed with infectious disease on 07/02/2016. Potentially with good place a PICC line and arrange home health for IV antibiotics. - There is no reasonable suspicion over IV access abuse in the hospital or at the SNF. - Blood cx negative in this hospitalization. - Will discuss with Dr. Carlos to see if we can place a PICC line and possibly discharge patient tomorrow 07/04/2016. - Paratracheal-retropharyngeal abscess - previously drained. MRI indicates residual abscess. - s/p lumbar laminectomy evacuation of lumbar epidural and paraspinous abscess - History of MRSA bacteremia and tricuspid endocarditis - anemia of chronic disease- stable - will monitor periodically. Hgb is around 8.3. Full code. Heparin SQ. West Stone DO Jul 03, 2016 4:56 pm
[2016-07-03] MEDS: VANCOMYCIN INJ 1,500 MG in SODIUM CHLORID 0.9% 500 ML INJ 500 ML IV SCH (17:00)
--- NOTE | 2016-07-03 17:23 | HHI.FF ---
Infusion Therapy Location of Infusion Therapy: Home Health Care IV Infusion Order Patient Information Patient Weight 63.4 kg Diagnosis: Diagnosis C-spine osteo Coded Allergies: Penicillin (Verified Allergy, Intermediate, Rash, 06/21/16) Has taken Keflex without any problem *MDRO Multi-Drug Resistant Organism (Verified Adverse Reaction, Unknown, ) MRSA (blood) - 05/14/16, 05/16/16, 05/18/16; (sputum) - 05/17/16 MRSA (back abscess)-05/28/16 Uncoded Allergies: chemical allergy (Allergy, Severe, anaphalactic, 09/27/12) Administer Medication Vancomycin 1.5 grams IV q 12 hours Start Treatment: Jul 03, 2016 Stop Treatment: Oct 01, 2016 Additional Information Venous access: PICC Line Additional Instructions [x] Peripheral flush and dressing changes per protocol [x] Implanted port and central gasoline service attendant: * Implanted port: 10 ml Normal Saline followed by 5 ml Heparin 100 units/ml Heparin flush after each use and monthly to maintain. [] May leave port accessed during therapy. [] May leave peripheral site accessed for duration of therapy. [x] If patient has SOB or respiratory distress, check oxygen saturation. If less than 90% or clinical signs of respiratory distress, administer oxygen at 2 L/min. via nasal cannula and notify physician. [x] Anaphylaxis/Reaction orders: * Stop infusion. * Keep IV line open with saline flush. * Notify physician. * Monitor vital signs every 15 minutes until symptoms resolve. * Check Oxygen saturation; Oxygen at 2 L/min. via nasal cannula if less than 90% or clinical signs of respiratory distress. * Administer diphenhydramine (Benadryl) 25 mg IV STAT, (unless patient has received as pre-med). May repeat once, if necessary. * Solu-Cortef 250 mg IVP over 30-60 seconds, use 100 mg vials for each dissolution. * Epinephrine (1mg/1 ml) 0.3 mg subcutaneously or IVP now with any signs of respiratory distress. * Check with physician for new additional pre-med orders if patient is re- challenged or re-treated. [x] May remove PICC line when treatment complete, after confirming with Physician. [x] If the patient is admitted to the hospital, the ED, or transferred via [facility] , complete transfer form including medication reconciliation order sheet. Laboratory Tests Weekly Labs: CBC w/diff, Creatinine, SED Rate, Vancomycin Trough Dina Carlos MD Jul 03, 2016 17:23
--- NOTE | 2016-07-03 17:41 | HHI.IDPN ---
Subjective Subjective Remarks doing well no numbness/tingling ambulates improved neck pain no fever wants to go home Antibiotics vanco\ rifampin Allergies: Coded Allergies: Penicillin (Verified Allergy, Intermediate, Rash, 06/21/16) Has taken Keflex without any problem *MDRO Multi-Drug Resistant Organism (Verified Adverse Reaction, Unknown, ) MRSA (blood) - 05/14/16, 05/16/16, 05/18/16; (sputum) - 05/17/16 MRSA (back abscess)-05/28/16 Uncoded Allergies: chemical allergy (Allergy, Severe, anaphalactic, 09/27/12) Objective . Vital Signs Date Time Temp Pulse Resp B/P Pulse Ox O2 Delivery O2 Flow Rate FiO2 07/03/16 16:05 97.8 109 18 132/70 97 07/03/16 13:24 16 07/03/16 12:09 98.3 109 18 120/72 99 07/03/16 09:00 99 Room Air 07/03/16 08:41 98.0 70 17 125/67 98 07/03/16 04:00 97.9 69 18 118/59 96 07/03/16 04:00 Room Air 07/03/16 00:00 98.1 75 18 126/61 97 07/03/16 00:00 Room Air 07/02/16 20:00 98.3 81 16 127/69 100 07/02/16 20:00 Room Air 07/02/16 07/02/16 07/03/16 15:00 23:00 07:00 Intake Total 480 ml 1224 ml 1357 ml Balance 480 ml 1224 ml 1357 ml Intake Oral 480 ml 240 ml 480 ml IV Total 984 ml 877 ml # Voids 5 4 3 # Bowel Movements 1 0 0 . Laboratory Tests Test 07/03/16 05:21 Creatinine 0.62 MG/DL Estimat Glomerular Filtration 105 ML/MIN Rate Imaging [place] Last Impressions Cervical Spine MRI 06/21/16 0000 Signed Impressions: Service Date/Time: Tuesday, June 21, 2016 09:07 - CONCLUSION: There is a long segment of confluent soft tissue prominence and enhancement adjacent to the postoperative cervical spine consistent with infection. No discrete fluid collections are noted. Areas of abnormal marrow signal seen within the C3 vertebral body concerning for focal areas of osteomyelitis. There is enhancement and prominence of the posterior longitudinal ligament which causes mild mass effect upon the adjacent thecal sac without evidence of cord compression. No evidence of cord infarction or other signal abnormality. Shana Mcknight MD Cervical Spine CT 06/21/16 0000 Signed Impressions: Service Date/Time: Tuesday, June 21, 2016 05:49 - CONCLUSION: 1. Osteomyelitis with resulting osteolysis of the anterior portion of the C3 vertebral body and resulting focal kyphosis. This is a new finding the prior study. 2. Anterior fusion plate at C4-C5. 3. Significant paraspinal soft tissue swelling most pronounced anteriorly. Luigi Baeza Jr., MD Physical Exam CONSTITUTIONAL/GENERAL: This is an adequately nourished patient, in no apparent distress. NECK: Ccollar in place Assessment & Plan Remarks IVDU Recent MRSA endocarditis, tricuspid valve Persistent and progressive C 3 osteomyelitis progressed to osteolysis resulting in focal kyphosis - recent retropharyngeal-prevertebral abscess extending down to the previous anterior cervical instrumentation, MRSA ; sp evacuation - imcompleted VANCO/RIf course Lumbar epidural abscess and intradural abscess sp Left L1-2 and left L5-S1 semi- laminectomy, evacuation of epidural and intradural abscess and evacuation left L5 level lumbar paraspinous muscle abscess - cont vancomycin and rifampin for 3mos then likley lifelong suppression with doxycycline 100 po bid ( other option bactrim if wont tolerate doxy) keep vancopmycin trough close to 20 cont rifampin monitor LFTs serial ESR every week OK to dc if cleared by neurosurgery Dina Moctezuma RN, Dr, MD Jul 03, 2016 17:40
--- NOTE | 2016-07-03 18:07 | HHI.FF ---
Face to Face Verification Diagnosis: (1) Osteomyelitis of cervical spine Physical Therapy Order: Evaluate and Treat, Improve ambulation, Strength and gait training Home Health Nursing Order: Signs/symptoms of disease process Medication education-adverse effect Wound care and dressing changes Nursing assessment with vital signs IV medication administration I have seen patient Adriane Rock on 07/03/16. My clinical findings support the need for the requested home health care services because: Patient has SOB Deconditioned w/ increased weakness Med compliance is questionable Limited ability to care for self Need for psychosocial assistance Impaired cognition/judgement High risk of falls Infection w/ risk of complications I certify that my clinical findings support that this patient is homebound because: Impaired cognitive ability/safety Unsteady gait/balance Unsafe to leave home unassisted Need for psychosocial assistance Unable to use public transportation West Stone DO Jul 03, 2016 6:07 pm
[2016-07-03 20:00] VITALS: BP 96/52; PULSE 95; RESP 20; TEMP 98; O2SAT 98
[2016-07-04 00:05] VITALS: BP 115/57; PULSE 65; RESP 16; TEMP 97.9; O2SAT 98
[2016-07-04] MEDS: ACETAMINOPHEN/HYDROcodone 325 MG/5 MG TAB PO PRN ×4 (02:27→15:46)
[2016-07-04] MEDS: SODIUM CHLOR 0.9% 1000 ML INJ 1,000 ML IV SCH ×2 (02:32→12:30)
[2016-07-04 04:01] VITALS: BP 129/60; PULSE 75; RESP 16; TEMP 97.7; O2SAT 98
[2016-07-04] MEDS: VANCOMYCIN INJ 1,500 MG in SODIUM CHLORID 0.9% 500 ML INJ 500 ML IV SCH ×2 (05:10→15:42)
[2016-07-04] MEDS: HYDROmorphone HCL PF 1 MG/ML VIAL IV PUSH PRN ×3 (05:11→13:14)
[2016-07-04] MEDS: CETIRIZINE HCL 10 MG TAB PO PRN (07:38)
[2016-07-04 08:00] VITALS: BP 130/68; PULSE 74; RESP 18; TEMP 98; O2SAT 99
[2016-07-04] MEDS: RIFAMPIN 150 MG CAP PO SCH (09:34)
[2016-07-04] MEDS: GABAPENTIN 300 MG CAP PO SCH ×3 (09:34→17:06)
[2016-07-04] MEDS: SODIUM CHLORIDE 0.9% FLUSH 10 ML FLUSH IV FLUSH SCH (09:34)
[2016-07-04] MEDS: TAMSULOSIN HCL 0.4 MG CAP PO SCH (09:34)
[2016-07-04] MEDS: HEPARIN SODIUM - SQ 10,000 UNITS/ML VIAL SQ SCH (09:34)
[2016-07-04] MEDS ORDERED: SODIUM CHLORIDE 0.9% FLUSH 10 ML FLUSH IV FLUSH PRN (11:15)
--- NOTE | 2016-07-04 11:38 | RADRPT ---
EXAM DATE/TIME: 07/04/2016 11:19 [facility] COMPARISON: FLUOROSCOPY PORTABLE UP TO 1HR, May 29, 2016, 0:00. INDICATIONS : Post PICC line placement. MEDICAL HISTORY : Osteomyelitis. SURGICAL HISTORY : None. ENCOUNTER: Initial ACUITY: 1 day PAIN SCORE: 0/10 LOCATION: Bilateral chest FINDINGS: There is a PICC in good position. The heart is normal in size. The pulmonary parenchyma is clear. The bony structures are grossly intact. CONCLUSION: 1. PICC in good position. Jerod Dang MD on July 04, 2016 at 11:36 Board Certified Radiologist. This report was verified electronically.
[2016-07-04 12:00] VITALS: BP 127/74; PULSE 80; RESP 18; TEMP 97.9; O2SAT 99
[2016-07-04] MEDS ORDERED: RIFA150C2 PO (15:33)
[2016-07-04] MEDS ORDERED: HYDR-3516 PO (15:33)
--- NOTE | 2016-07-04 15:36 | HHI.DS ---
Discharge Summary Admission Date Jun 21, 2016 at 8:04 am Discharge Date: Jul 04, 2016 Admitting Diagnosis C-3 osteomyelitis with osteolysis; h/o epidural abscess (1) Osteomyelitis of cervical spine ICD Code: M46.22 Procedures none Brief History - From Admission patient is a 45 y/o female who presented to ER with worsening neck pain. she was admitted to this hospital about last month with MRSA bacteremia, cervical prevertebral, lumbar epidural abscess and endocarditis. she underwent I/D of the abscesses and discharged to rehab with IV Vancomycin. she says that she went home from rehab last week and since then she's been having worsening neck pain. she has some tingling of both hands and feet. she had some night sweats but there's no definite report of fevers at home. CBC/BMP: 07/03/16 0521 Significant Findings Laboratory Tests Test 07/03/16 04:50 Vancomycin Level Trough 17.0 MCG/ML (5.0-10.0) Imaging Last Impressions Chest X-Ray 07/04/16 0000 Signed Impressions: Service Date/Time: Monday, July 04, 2016 11:19 - CONCLUSION: 1. PICC in good position. Jerod Dang MD Cervical Spine MRI 06/21/16 0000 Signed Impressions: Service Date/Time: Tuesday, June 21, 2016 09:07 - CONCLUSION: There is a long segment of confluent soft tissue prominence and enhancement adjacent to the postoperative cervical spine consistent with infection. No discrete fluid collections are noted. Areas of abnormal marrow signal seen within the C3 vertebral body concerning for focal areas of osteomyelitis. There is enhancement and prominence of the posterior longitudinal ligament which causes mild mass effect upon the adjacent thecal sac without evidence of cord compression. No evidence of cord infarction or other signal abnormality. Shana Mcknight MD Cervical Spine CT 06/21/16 0000 Signed Impressions: Service Date/Time: Tuesday, June 21, 2016 05:49 - CONCLUSION: 1. Osteomyelitis with resulting osteolysis of the anterior portion of the C3 vertebral body and resulting focal kyphosis. This is a new finding the prior study. 2. Anterior fusion plate at C4-C5. 3. Significant paraspinal soft tissue swelling most pronounced anteriorly. Luigi Baeza Jr., MD PE at Discharge GENERAL: Alert, oriented 3, NAD. SKIN: Warm and dry. HEAD: Normocephalic. EYES: No scleral icterus. No injection or drainage. NECK: Supple, trachea midline. No JVD or lymphadenopathy. CARDIOVASCULAR: Regular rate and rhythm without murmurs, gallops, or rubs. RESPIRATORY: Breath sounds equal bilaterally. No accessory muscle use. GASTROINTESTINAL: Abdomen soft, non-tender, nondistended. MUSCULOSKELETAL: No cyanosis, or edema. BACK: Nontender without obvious deformity. No CVA tenderness. Pt update on day of discharge Ms. Rock is doing well. No acute concerns. Denies any chest pain, SOB, fever, chills. Excited about going home today. Home health is already setup. Hospital Course Ms. Rock is a 45 y/o female who presented to ER with worsening neck pain. she was admitted to this hospital about last month with MRSA bacteremia, cervical prevertebral, lumbar epidural abscess and endocarditis. she underwent I/D of the abscesses and discharged to rehab with IV Vancomycin. she says that she went home from rehab last week and since then she's been having worsening neck pain. she has some tingling of both hands and feet. she had some night sweats but there's no definite report of fevers at home. - C3 osteomyelitis with development of significant kyphosis above previous C4-5 fusion. - MRI of the cervical spine with a long segment of confluent soft tissue prominence and enhancement adjacent to the postoperative cervical spine consistent with infection - ESR > 140 at the time of presentation- now trending down - will check ESR weekly. - ID and neurosurgery consults appreciated - Currently on cervical collar, patient is refusing halo. - Per neurosurgeon, Dr. Oliver, patient will eventually need further anterior- posterior cervical spine surgery for stabilization. - continue Vancomycin IV and Rifampin 300mg PO Q12hrs. - continue with pain control with [place], Dilaudid. - Discussed with infectious disease on 07/02/2016. Potentially with good place a PICC line and arrange home health for IV antibiotics. - There is no reasonable suspicion over IV access abuse in the hospital or at the SNF. - Blood cx negative in this hospitalization. - I have discussed with ID Dr. Carlos and Neurosurgeon Dr. Oliver extensively. We all agreed on our plan to discharge patient home on IV Vancomycin and PO Rifampin for 3 months. Patient will need lifelong doxycycline abx after 3 months of Vancomycin and Rifampin. I have discussed with patient at length on several occasions regarding importance of being compliant with medications and remain completely free from using IV drugs as well as any other illicit drugs. Patient understands the gravity of the situation. If abuse occurs , patient could endanger her life. Neurosurgery will coordinate with patient regarding follow up. Patient verbalized understanding. Patient also understood that Rifampin cannot be taken by itself. It is a synergistic medication and thus should only be taken with Vancomycin. - Paratracheal-retropharyngeal abscess - previously drained. MRI indicates residual abscess. - s/p lumbar laminectomy evacuation of lumbar epidural and paraspinous abscess - History of MRSA bacteremia and tricuspid endocarditis - anemia of chronic disease- stable - will monitor periodically. Hgb is around 8.3. After today's dose of vancomycin, patient was discharged home with home health. Pt Condition on Discharge: Good Discharge Disposition: Disch w/ Home Health Serv Discharge Time: > 30 minutes Discharge Instructions DIET: Follow Instructions for: As Tolerated, No Restrictions Activities you can perform: Regular-No Restrictions Other Activity Instructions: Wear cervical collar. Follow up Referrals: PCP Follow-up - 1 Week SNF/[facility]/ with [facility] New Medications: Hydrocodone-Acetaminophen ([place]) 7.5-325 mg Tab 1 TAB PO Q4H PRN PAIN #40 Ref 0 TAB Rifampin (Rifampin) 150 Mg Cap 300 MG PO Q12HR Infection Days 2 CAP Continued Medications: Cetirizine (Cetirizine) 10 Mg Tab 10 MG PO DAILY Allergies #30 TAB Famotidine (Pepcid) 20 Mg Tab 20 MG PO BID Reflux #60 Ref 0 TAB Fluticasone Nasal [place] (Fluticasone Nasal [place]) 50 Mcg/Act Naspr 50 MCG EACH NARE BID 50 mcg/spray Allergy Management #1 Ref 0 BOTTLE Gabapentin (Neurontin) 300 Mg Cap 300 MG PO TID Neuropathic pain #90 CAP Quetiapine (Quetiapine) 25 Mg Tab 25 MG PO BID Anxiety and/or Insomnia #60 TAB Tamsulosin (Flomax) 0.4 Mg Cap 0.4 MG PO DAILY Urinary #30 CAP Discontinued Medications: Hydromorphone (Dilaudid) 8 Mg Tab 8 MG PO Q6H PRN PAIN SCALE 5 TO 10 #20 Ref 0 TAB Lidocaine Patch 12 HR (Lidoderm Patch 12 HR) 5% Patch 1 PATCH TD DAILY@18 Pain Management #10 BOX Methadone (Methadone) 10 Mg Tab 20 MG PO DAILY Pain Management #10 Ref 0 TAB West Stone DO Jul 04, 2016 15:36
[2016-07-04] MEDS ORDERED: HYDR-3288 PO (15:37)
[2016-07-04 16:00] VITALS: BP 113/57; PULSE 83; RESP 18; TEMP 98.4; O2SAT 98
[2016-07-04 16:53] VITALS: RESP 18
[2016-07-05] MEDS ORDERED: PHARMACY ORDERED LAB ONE (04:45)
[2016-07-05] MEDS ORDERED: SODIUM CHLORIDE 0.9% FLUSH 10 ML FLUSH IV FLUSH SCH (09:00)
== END 2016-07-04 18:10 | disposition home health service (06) | DRG 539 ==
LOC: NEPC 03:34 → NEDA 08:04 → N04A 10:55
PROVIDERS: ADMIT Hospitalist; ATTEND Hospitalist
DX: M46.22 Osteomyelitis of vertebra, cervical region (principal); G06.1 Intraspinal abscess and granuloma; J39.0 Retropharyngeal and parapharyngeal abscess; I38 Endocarditis, valve unspecified; G62.9 Polyneuropathy, unspecified; M48.50XA Collapsed vertebra, not elsewhere classified, site unspecified, initial encounter for fracture; M53.2X2 Spinal instabilities, cervical region; M40.202 Unspecified kyphosis, cervical region; D63.8 Anemia in other chronic diseases classified elsewhere; Z86.14 Personal history of Methicillin resistant Staphylococcus aureus infection; J44.9 Chronic obstructive pulmonary disease, unspecified; I10 Essential (primary) hypertension; J45.909 Unspecified asthma, uncomplicated; Z98.1 Arthrodesis status
CPT/HCPCS: 36569; 71010; 72126; 72156; 76937; 80048; 80076; 80202; 82565; 83605; 85025; 85610; 85652; 85730; 86140; 87040; 96365; 96367; 96368; A9579; J0696; J1170; J1644; J3370; J7030; J7040; J7050; L0150; L0172; Q9967

== ENCOUNTER 2016-07-18 15:15 | Day surgery (SDC) | payer OTHER ==
[~2016-07-18 15:15] MED LIST changes: -DILA8TAB4 PO; +HYDR-3288 PO; -LACT PO; -LIDO5DIS35 TD; -METH10TA PO
[2016-07-18 15:52] VITALS: BP 142/75; PULSE 85; RESP 20; O2SAT 99
[2016-07-18 16:35] VITALS: BP 137/83; PULSE 76; RESP 16; O2SAT 99
--- NOTE | 2016-07-18 16:57 | RADRPT ---
EXAM DATE/TIME: 07/18/2016 17:15 [facility] COMPARISON: No previous studies available for comparison. INDICATIONS : Patient with non-functioning picc line in need of picc line exchange. MEDICAL HISTORY : HTN MRSA in blood Chonic neck and back pain Neuropathy Asthma COPD Cervical and lumbar abscess Hx of endocarditis SURGICAL HISTORY : cervical and lumbar spine surgeries. ENCOUNTER: Initial ACUITY: 1 day PAIN SCORE: 0/10 FLUORO TIME: 0.2 minutes IMAGE SERIES: 0 ACCESS: Right picc line DEVICE(S): 1.) 4 Indonesian single lumen 35 cm Power PICC PROCEDURE : 1. Fluoroscopic guidance. 2. Fluoroscopic guided central venous Power PICC line replacement. The risks, benefits and alternatives to the procedure were explained and verbal and written consent w as obtained. The arm was prepped in sterile fashion. Full sterile technique was used, including cap , mask, sterile gloves and gown and a large sterile sheet. Hand hygiene and 2% chlorhexidine prep wa s utilized per protocol for cutaneous antisepsis with appropriate dry time for site. The skin and guerrero bcutaneous tissues were infiltrated with local anesthetic solution. Under direct fluoroscopic guidance the previously placed PICC line was removed over a guidewire and a fresh Power Injectable PICC line was cut to prescribed length and positioned with tip at the cavoatr ial junction level. The line was flushed and secured per protocol. CONCLUSION: 1. Uncomplicated central venous Power PICC line replacement. 2. The PICC line can be used immediately. Kulwant Crooks MD on July 18, 2016 at 16:55 Board Certified Radiologist. This report was verified electronically.
--- NOTE | 2016-07-18 16:58 | PD.RAD ---
Radiology Post PICC Prog Note Pre Procedure Diagnosis: (1) Infection of right hand (2) IV drug abuse (3) Fever Post Procedure Diagnosis: (1) Infection of right hand (2) IV drug abuse (3) Infectious endocarditis (4) Abscess in epidural space of lumbar spine Procedure: Right PICC line replacement Procedure Date: Jul 18, 2016 Supervising Radiologist Kulwant Crooks Proceduralist/Assist: Nesha Maki, RT(R), Nesha Galan RT(R)() Device Side: Right [place]: 4 single lumen cm: 35 Catheter: Power PICC Plan of Activity Patient to Unit: ROPU Patient Condition: Good PICC line can be used immediately Kulwant Crooks MD Jul 18, 2016 16:58
== END 2016-07-18 16:45 | disposition home or self-care (01) ==
LOC: HROP 15:15 → HRIP 15:20 → HROP 16:45
PROVIDERS: ATTEND Internal Medicine Infectious Disease
DX: Z45.2 Encounter for adjustment and management of vascular access device (principal); G06.2 Extradural and subdural abscess, unspecified; I33.0 Acute and subacute infective endocarditis; G62.9 Polyneuropathy, unspecified; F19.10 Other psychoactive substance abuse, uncomplicated; I10 Essential (primary) hypertension; J44.9 Chronic obstructive pulmonary disease, unspecified; J45.909 Unspecified asthma, uncomplicated
CPT/HCPCS: 36584; 77001; C1751; J1642

== ENCOUNTER 2016-07-31 01:19 | Emergency (ER) | payer OTHER ==
[~2016-07-31 01:19] MED LIST changes: -FAMO1TAB37 PO; -TAMS5CAP PO
[2016-07-31 01:23] VITALS: BP 134/83; PULSE 98; RESP 16; TEMP 98.9; O2SAT 100
--- NOTE | 2016-07-31 04:24 | PD ---
HPI Chief Complaint: Abnormal Results Time Seen by Provider: 04:12 Travel History International Travel<30 days: No Contact w/Intl Traveler<30days: No Traveled to known affect area: No History of Present Illness HPI 45-year-old female with history of IVDU, C3 osteomyelitis, PICC line with IV vancomycin at home, here for evaluation arriving to the emergency department at 1:00 AM stating that her infectious disease doctor called her one week ago and told her to present to the emergency department because her levels were high. She is not sure what this meant. She states that she was busy this weekend could not go to the emergency department, therefore waited until now. She states she has not been taking her vancomycin for the last week. No fevers or chills. No physical complaints. PFSH Past Medical History Asthma: Yes Anxiety: Yes Depression: No Cancer: No Cardiovascular Problems: Yes COPD: Yes (PT DENIES) Diminished Hearing: No Endocrine: No Genitourinary: No Hypertension: Yes Immune Disorder: No Musculoskeletal: Yes (CHRONIC NECK AND BACK PAIN) Neurologic: Yes (neuropathy) Psychiatric: Yes Reproductive: No Respiratory: Yes Immunizations Current: Yes ?: Not Social History Alcohol Use: No Tobacco Use: Yes (03/31 ppd) Substance Use: Yes (methamphetamine - JUST TRIED) Allergies-Medications (Allergen,Severity, Reaction): Coded Allergies: Penicillin (Verified Allergy, Intermediate, Rash, 07/31/16) Has taken Keflex without any problem *MDRO Multi-Drug Resistant Organism (Verified Adverse Reaction, Unknown, ) MRSA (blood) - 05/14/16, 05/16/16, 05/18/16; (sputum) - 05/17/16 MRSA (back abscess)-05/28/16 Uncoded Allergies: chemical allergy (Allergy, Severe, anaphalactic, 09/27/12) Reported Meds & Prescriptions Reported Meds & Active Scripts Active Fluticasone Nasal [place] 50 Mcg/Act Naspr 50 Mcg EACH NARE BID 50 mcg/spray Quetiapine (Quetiapine Fumarate) 25 Mg Tab 25 Mg PO BID Neurontin (Gabapentin) 300 Mg Cap 300 Mg PO TID Cetirizine (Cetirizine HCl) 10 Mg Tab 10 Mg PO DAILY Review of Systems Except as stated in HPI: all other systems reviewed are Neg Physical Exam Narrative GENERAL: Well-developed, well-nourished, no acute distress. SKIN: Focused skin assessment warm/dry. Bilateral upper extremities with several sores the patient states is from scratching from bedbugs. Mild surrounding cellulitis. No purulent drainage. No induration. HEAD: Atraumatic. Normocephalic. EYES: Pupils equal and round. No scleral icterus. No injection or drainage. ENT: Mucous membranes pink and moist. NECK: Trachea midline. No JVD. CARDIOVASCULAR: Regular rate and rhythm. RESPIRATORY: No accessory muscle use. Clear to auscultation. Breath sounds equal bilaterally. GASTROINTESTINAL: Abdomen soft, non-tender, nondistended. MUSCULOSKELETAL: No obvious deformities. No clubbing. No cyanosis. No edema. NEUROLOGICAL: Awake and alert. No obvious cranial nerve deficits. Motor grossly within normal limits. Normal speech. PSYCHIATRIC: Appropriate mood and affect; insight and judgment normal. Data Data Last Documented VS Vital Signs Date Time Temp Pulse Resp B/P Pulse Ox O2 Delivery O2 Flow Rate FiO2 07/31/16 01:28 07/31/16 01:23 98.9 98 16 100 Room Air Orders Basic Metabolic Panel (Bmp) (07/31/16 04:18) Complete Blood Count With Diff (07/31/16 04:18) Iv Access Insert/Monitor (07/31/16 04:18) Ecg Monitoring (07/31/16 04:18) Oximetry (07/31/16 04:18) Sodium Chloride 0.9% Flush (Ns Flush) (07/31/16 04:30) Labs Laboratory Tests Test 07/31/16 04:25 White Blood Count 4.6 TH/MM3 Red Blood Count 4.11 MIL/MM3 Hemoglobin 8.0 GM/DL Hematocrit 25.6 % Mean Corpuscular Volume 62.4 FL Mean Corpuscular Hemoglobin 19.5 PG Mean Corpuscular Hemoglobin 31.2 % Concent Red Cell Distribution Width 16.8 % Platelet Count 221 TH/MM3 Mean Platelet Volume 8.5 FL Neutrophils (%) (Auto) 53.7 % Lymphocytes (%) (Auto) 28.7 % Monocytes (%) (Auto) 13.1 % Eosinophils (%) (Auto) 3.9 % Basophils (%) (Auto) 0.6 % Neutrophils # (Auto) 2.5 TH/MM3 Lymphocytes # (Auto) 1.3 TH/MM3 Monocytes # (Auto) 0.6 TH/MM3 Eosinophils # (Auto) 0.2 TH/MM3 Basophils # (Auto) 0.0 TH/MM3 CBC Comment AUTO DIFF Differential Comment AUTO DIFF CONFIRMED Platelet Estimate NORMAL Platelet Morphology Comment NORMAL Red Cell Morphology Comment NORMAL Sodium Level 138 MEQ/L Potassium Level 3.4 MEQ/L Chloride Level 102 MEQ/L Carbon Dioxide Level 28.7 MEQ/L Anion Gap 7 MEQ/L Blood Urea Nitrogen 18 MG/DL Creatinine 0.70 MG/DL Estimat Glomerular Filtration 91 ML/MIN Rate Random Glucose 107 MG/DL Calcium Level 8.6 MG/DL [facility] Medical Decision Making Medical Screen Exam Complete: Yes Emergency Medical Condition: Yes Differential Diagnosis Renal insufficiency, metabolic abnormality Narrative Course Vital signs reviewed. CBC shows WBC 4.6, hemoglobin 8, hematocrit 25.6, platelets 221. Hemoglobin is around her baseline. BMP is unremarkable. Patient was made aware of basic lab findings. She is resting comfortably. She is stable for discharge home with outpatient follow-up with her memory care physician as well as her infectious disease doctor this week. She was informed on when to return to the emergency department. She verbalizes understanding and agreement with plan. Diagnosis Primary Impression: Osteomyelitis of cervical spine Referrals: Dina Carlos MD 3 days Primary Care Physician 3 days Additional Instructions: Follow-up with your primary care physician this week. Follow-up with your infectious disease doctor this week. Continue vancomycin at home. Return to the emergency department for worsening symptoms or any other concerns. Disposition: 01 DISCHARGE HOME Condition: Stable Mendez Fink MD July 31, 2016 04:24
[2016-07-31] MEDS ORDERED: SODIUM CHLORIDE 0.9% FLUSH 10 ML FLUSH IV FLUSH PRN (04:30)
[2016-07-31 04:36] LABS: AUTOMATED NEUTROPHIL # 2.5 TH/MM3 (1.8-7.7); BASOPHIL % 0.6 % (0.0-2.0); EOSINOPHIL # 0.2 TH/MM3 (0-0.4); EOSINOPHIL % 3.9 % (0.0-4.0); HEMATOCRIT 25.6 % (35.0-46.0); LYMPH % 28.7 % (9.0-44.0); LYMPHOCYTE # 1.3 TH/MM3 (1.0-4.8); MEAN CELL VOLUME 62.4 FL (80.0-100.0); MEAN CORPUSCULAR HEMOGLOBIN 19.5 PG (27.0-34.0); MEAN CORPUSCULAR HGB CONC 31.2 % (32.0-36.0); MONO % 13.1 % (0.0-8.0); NEUT % 53.7 % (16.0-70.0); PLATELET COUNT 221 TH/MM3 (150-450); RED BLOOD COUNT 4.11 MIL/MM3 (4.00-5.30); RED CELL DISTRIBUTION WIDTH 16.8 % (11.6-17.2); WHITE BLOOD COUNT 4.6 TH/MM3 (4.0-11.0)
[2016-07-31 04:43] LABS: HEMO FLAGS AUTO DIFF
[2016-07-31 04:59] LABS: BICARBONATE 28.7 MEQ/L (21.0-32.0); POTASSIUM 3.4 MEQ/L (3.5-5.1)
[2016-07-31 05:29] LABS: PLATELET ESTIMATE SMEAR NORMAL (NORMAL); PLATELET MORPHOLOGY NORMAL (NORMAL); SCAN/DIFF AUTO DIFF CONFIRMED
== END 2016-07-31 06:30 | disposition home or self-care (01) ==
LOC: NEPC 01:19
DX: M46.22 Osteomyelitis of vertebra, cervical region (principal); J45.909 Unspecified asthma, uncomplicated; I10 Essential (primary) hypertension; F17.210 Nicotine dependence, cigarettes, uncomplicated
CPT/HCPCS: 80048; 85025; 99283

== ENCOUNTER 2016-08-06 03:29 | Inpatient (IN) | payer OTHER, MEDICARE ==
[~2016-08-06] VITALS: Ht 160 cm; Wt 59.3 kg
[~2016-08-06 03:29] MED LIST changes: -HYDR-3288 PO; -RIFA150C2 PO
[2016-08-06 03:36] VITALS: BP 129/58; PULSE 105; RESP 20; TEMP 99.2; O2SAT 100
--- NOTE | 2016-08-06 03:57 | PD ---
HPI Chief Complaint: Pain: Acute or Chronic Time Seen by Provider: 03:38 Travel History International Travel<30 days: No Contact w/Intl Traveler<30days: No Traveled to known affect area: No History of Present Illness HPI 45-year-old female complains of neck pain and fever. Patient has history of IV drug abuse. Patient was diagnosed was cervical spine osteomyelitis, C3 osteomyelitis. Patient was given IV vancomycin through a PICC line. Patient however has not had vancomycin for at least 2 weeks. Patient was seen in the emergency room 6 days ago and was advised to go back on vancomycin and follow with local physician which she has not done so. Patient states that she has increasing neck pain since then. Patient states that she has low-grade fever tonight at home with a temperature 100.4 orally at home. Patient arrived by EMS. Patient states the pain is sharp pain started at the neck area with radiation to the shoulder. Patient denies any headache. Patient denies any chest pain or shortness breath. Patient denies abdominal pain. Patient denies any nausea vomiting diarrhea. Patient denies any focal weakness or numbness of extremity. PFSH Past Medical History Asthma: Yes Anxiety: Yes Depression: No Cancer: No Cardiovascular Problems: Yes COPD: Yes (PT DENIES) Diminished Hearing: No Endocrine: No Genitourinary: No Hypertension: Yes Immune Disorder: No Musculoskeletal: Yes (CHRONIC NECK AND BACK PAIN) Neurologic: Yes (neuropathy) Psychiatric: Yes Reproductive: No Respiratory: Yes Immunizations Current: Yes Influenza Vaccination: No ?: Not Social History Alcohol Use: No Tobacco Use: Yes (1/2 ppd) Substance Use: No (HX OF ABUSE, STATES SHE IS CLEAN) Allergies-Medications (Allergen,Severity, Reaction): Coded Allergies: Penicillin (Verified Allergy, Intermediate, Rash, 08/06/16) Has taken Keflex without any problem *MDRO Multi-Drug Resistant Organism (Verified Adverse Reaction, Unknown, ) MRSA (blood) - 05/14/16, 05/16/16, 05/18/16; (sputum) - 05/17/16 MRSA (back abscess)-05/28/16 Uncoded Allergies: chemical allergy (Allergy, Severe, anaphalactic, 09/27/12) Reported Meds & Prescriptions Reported Meds & Active Scripts Active No Active Prescriptions or Reported Medications Review of Systems General / Constitutional: Positive: Fever Eyes: No: Visual changes HENT: Positive: Neck Pain, No: Headaches Cardiovascular: No: Chest Pain or Discomfort Respiratory: No: Shortness of Breath Gastrointestinal: No: Abdominal Pain Genitourinary: No: Dysuria Musculoskeletal: No: Pain Skin: No Rash Neurologic: No: Weakness Psychiatric: No: Depression Endocrine: No: Polydipsia Hematologic/Lymphatic: No: Easy Bruising Physical Exam Narrative GENERAL: Well-nourished, well-developed patient. SKIN: Focused skin assessment warm/dry. HEAD: Normocephalic. EYES: No scleral icterus. No injection or drainage. NECK: Supple, trachea midline. No JVD or lymphadenopathy. Patient has moderate tenderness on palpation paraspinal area cervical spine. No midline tenderness. No crepitus no deformity noted. No redness no induration of the soft tissue of the neck. CARDIOVASCULAR: Regular rate and rhythm without murmurs, gallops, or rubs. RESPIRATORY: Breath sounds equal bilaterally. No accessory muscle use. GASTROINTESTINAL: Abdomen soft, non-tender, nondistended. MUSCULOSKELETAL: No cyanosis, or edema. BACK: Nontender without obvious deformity. No CVA tenderness. Neurologic exam normal. Data Data Last Documented VS Vital Signs Date Time Temp Pulse Resp B/P Pulse Ox O2 Delivery O2 Flow Rate FiO2 08/06/16 03:36 99.2 105 20 129/58 100 Orders Complete Blood Count With Diff (08/06/16 03:49) Basic Metabolic Panel (Bmp) (08/06/16 03:49) C-Reactive Protein (Crp) (08/06/16 03:49) Westergren Sedimentation Rate (08/06/16 03:49) Iv Access Insert/Monitor (08/06/16 03:49) Ecg Monitoring (08/06/16 03:49) Oximetry (08/06/16 03:49) Blood Culture (08/06/16 03:49) Ketorolac Inj (Toradol Inj) (08/06/16 04:00) Vancomycin Inj (Vancomycin Inj) (08/06/16 04:00) Mri C Spine W&W/O Contrast (08/06/16 ) Labs Laboratory Tests Test 08/06/16 04:00 White Blood Count 8.5 TH/MM3 Red Blood Count 4.00 MIL/MM3 Hemoglobin 7.9 GM/DL Hematocrit 24.1 % Mean Corpuscular Volume 60.2 FL Mean Corpuscular Hemoglobin 19.8 PG Mean Corpuscular Hemoglobin 32.8 % Concent Red Cell Distribution Width 16.3 % Platelet Count 256 TH/MM3 Mean Platelet Volume 8.8 FL Neutrophils (%) (Auto) 76.5 % Lymphocytes (%) (Auto) 14.2 % Monocytes (%) (Auto) 8.9 % Eosinophils (%) (Auto) 0.2 % Basophils (%) (Auto) 0.2 % Neutrophils # (Auto) 6.5 TH/MM3 Lymphocytes # (Auto) 1.2 TH/MM3 Monocytes # (Auto) 0.8 TH/MM3 Eosinophils # (Auto) 0.0 TH/MM3 Basophils # (Auto) 0.0 TH/MM3 CBC Comment AUTO DIFF Differential Total Cells 100 Counted Neutrophils % (Manual) 81 % Band Neutrophils % 4 % Lymphocytes % 13 % Monocytes % 2 % Neutrophils # (Manual) 7.2 TH/MM3 Differential Comment FINAL DIFF MANUAL Platelet Estimate NORMAL Platelet Morphology Comment NORMAL Helmet Cells OCC Acanthocytes OCC Erythrocyte Sedimentation Rate 85 mm/hr Sodium Level 133 MEQ/L Potassium Level 3.1 MEQ/L Chloride Level 97 MEQ/L Carbon Dioxide Level 26.8 MEQ/L Anion Gap 9 MEQ/L Blood Urea Nitrogen 17 MG/DL Creatinine 0.67 MG/DL Estimat Glomerular Filtration 96 ML/MIN Rate Random Glucose 96 MG/DL Calcium Level 8.7 MG/DL C-Reactive Protein 12.80 MG/DL [facility] Medical Decision Making Medical Screen Exam Complete: Yes Emergency Medical Condition: Yes Interpretation(s) 5:34 AM. CBC WBC 8.5. Hemoglobin 7.9 hematocrit 24.1. MCV 60.2. 81 neutrophil. 4 bands. Sodium 133. Potassium 3.1. Sedimentation rate 85. C- reactive protein 12.8. Differential Diagnosis Differential diagnosis including persistent osteomyelitis, fracture. Narrative Course 45-year-old female increasing neck pain. History of C3 osteomyelitis. Patient has been noncompliant with vancomycin IV treatment at home. Vancomycin 1 g IV given. KCl 40 mEq by mouth given. Scripts No Active Prescriptions or Reported Meds Eusebio Gann MD August 06, 2016 03:57
[2016-08-06] MEDS ORDERED: VANCOMYCIN INJ 1,000 MG in SODIUM CHLOR 0.9% 250 ML INJ 250 ML IV ONE (04:00)
[2016-08-06] MEDS ORDERED: KETOROLAC TROMETHAMINE 30 MG/ML (IVP) VIAL IV PUSH ONE (04:00)
[2016-08-06 04:29] LABS: AUTOMATED NEUTROPHIL # 6.5 TH/MM3 (1.8-7.7); BASOPHIL % 0.2 % (0.0-2.0); EOSINOPHIL % 0.2 % (0.0-4.0); HEMATOCRIT 24.1 % (35.0-46.0); LYMPH % 14.2 % (9.0-44.0); LYMPHOCYTE # 1.2 TH/MM3 (1.0-4.8); MEAN CELL VOLUME 60.2 FL (80.0-100.0); MEAN CORPUSCULAR HEMOGLOBIN 19.8 PG (27.0-34.0); MEAN CORPUSCULAR HGB CONC 32.8 % (32.0-36.0); MONO % 8.9 % (0.0-8.0); NEUT % 76.5 % (16.0-70.0); PLATELET COUNT 256 TH/MM3 (150-450); RED CELL DISTRIBUTION WIDTH 16.3 % (11.6-17.2); WHITE BLOOD COUNT 8.5 TH/MM3 (4.0-11.0)
[2016-08-06 04:38] LABS: HEMO FLAGS AUTO DIFF
[2016-08-06 04:48] LABS: BICARBONATE 26.8 MEQ/L (21.0-32.0); POTASSIUM 3.1 MEQ/L (3.5-5.1)
[2016-08-06 05:14] LABS: BANDS 4 % (0-6); NEUTROPHIL # MANUAL DIFF 7.2 TH/MM3 (1.8-7.7); POLYS (SEG NEUTROPHILS) 81 % (16-70); WBC DIFF SAMPLE 100
[2016-08-06 05:15] LABS: ACANTHOCYTES OCC (NORMAL); PLATELET ESTIMATE SMEAR NORMAL (NORMAL); PLATELET MORPHOLOGY NORMAL (NORMAL); SCAN/DIFF FINAL DIFF MANUAL
[2016-08-06 05:16] LABS: HELMET CELLS OCC (NORMAL)
[2016-08-06] MEDS ORDERED: POTASSIUM CHLORIDE 20 MEQ CONTROLLED RELEASE TAB PO ONE ×2 (05:45→11:15)
[2016-08-06] MEDS ORDERED: GADODIAMIDE PF 287 MG/ML 10 ML VIAL (for RAD MRI) IV ONE (08:35)
[2016-08-06] MEDS ORDERED: MORPHINE SULFATE 4 MG/ML INJ IV PUSH ONE (09:15)
--- NOTE | 2016-08-06 09:16 | RADRPT ---
EXAM DATE/TIME: 08/06/2016 08:06 [facility] COMPARISON: MRI CERVICAL SPINE W & W/O CONTRAST, June 21, 2016, 9:07. INDICATIONS : Osteomyelitis. Neck pain after fusion 2 months ago. CONTRAST: 10 cc Omniscan (gadodiamide) IV MEDICAL HISTORY : Hypertension. Chronic obstructive pulmonary disease. Cervical spine abcess with osteomyelitis. SURGICAL HISTORY : Fusion, cervical. ENCOUNTER: Initial ACUITY: 2 months PAIN SCORE: 6/10 LOCATION: neck. TECHNIQUE: Multiplanar, multisequence MRI examination of the cervical spine was performed. FINDINGS: There is fusion at C4-5. There is destruction of C3 vertebral body again seen. There is dorsal angula tion at C3. There is T2 signal abnormality and enhancement of the soft tissues posterior to the poste rior longitudinal ligament from C1 inferiorly but more notably from C1-C4 level. There is also enhanc ement of the prevertebral tissues from C1-C6 which appears to have slightly improved. The angulation at C3-4 secondary to deformed C3 again seen. This does cause compression upon the anterior cord where there is mild canal stenosis, unchanged. There is also posterior disc osteophyte complex at C5-6 whi ch abuts ventral cord. Minimal canal stenosis again seen. Prominent degenerative changes seen at C3-4 and C6-7 levels. Cord is normal in signal intensity and morphology. CONCLUSION: 1. Deformity of C3 vertebral body with dorsal and elation at this level causing mild canal stenosis, unchanged. 2. Enhancement of the posterior soft tissues greatest from C1-C4 level. 3. Posterior disc osteophyte complex at C5-6 causing minimal canal stenosis. 4. Fusion at C4-5. 5. There has been improvement of soft tissue enhancement on current study. Yvan Sebastian MD on August 06, 2016 at 9:01 Board Certified Radiologist. This report was verified electronically.
[2016-08-06 09:39] VITALS: BP 108/51; PULSE 84; RESP 16; O2SAT 100
--- NOTE | 2016-08-06 10:08 | PD ---
Physical Exam Date Seen by Provider: August 06, 2016 Time Seen by Provider: 07:00 Narrative Patient signed out to me by Dr. Gann at 7 AM, please see previous notes for further information. Patient is a known IV drug user with previous history of endocarditis, osteomyelitis of the cervical spine, noncompliant with medications for the last 2 weeks. She is here with low-grade fevers and cervical spine pain. IV vancomycin has been given in the ER as precaution. She is awaiting MRI for further evaluation. Laboratory Tests Test 08/06/16 04:00 Hemoglobin 7.9 GM/DL (11.6-15.3) Hematocrit 24.1 % (35.0-46.0) Mean Corpuscular Volume 60.2 FL (80.0-100.0) Mean Corpuscular Hemoglobin 19.8 PG (27.0-34.0) Neutrophils (%) (Auto) 76.5 % (16.0-70.0) Monocytes (%) (Auto) 8.9 % (0.0-8.0) Neutrophils % (Manual) 81 % (16-70) Acanthocytes OCC (NORMAL) Erythrocyte Sedimentation Rate 85 mm/hr (0-20) Sodium Level 133 MEQ/L (136-145) Potassium Level 3.1 MEQ/L (3.5-5.1) Chloride Level 97 MEQ/L (98-107) C-Reactive Protein 12.80 MG/DL (0.00-0.30) Last 24 hours Impressions Cervical Spine MRI 08/06/16 0000 Signed Impressions: Service Date/Time: Saturday, August 06, 2016 08:06 - CONCLUSION: 1. Deformity of C3 vertebral body with dorsal and elation at this level causing mild canal stenosis, unchanged. 2. Enhancement of the posterior soft tissues greatest from C1-C4 level. 3. Posterior disc osteophyte complex at C5-6 causing minimal canal stenosis. 4. Fusion at C4-5. 5. There has been improvement of soft tissue enhancement on current study. Yvan Sebastian MD MRI shows enhancement at the [place] 1 through C4 level of uncertain etiology. There is a high index of suspicion for osteomyelitis in this case. At this point, my plan would be to admit her for further treatment and evaluation. Case was discussed with Dr. Soto for admission. Data Data Last Documented VS Vital Signs Date Time Temp Pulse Resp B/P Pulse Ox O2 Delivery O2 Flow Rate FiO2 08/06/16 09:39 84 16 108/51 100 08/06/16 09:39 Room Air 08/06/16 03:36 99.2 Orders Complete Blood Count With Diff (08/06/16 03:49) Basic Metabolic Panel (Bmp) (08/06/16 03:49) C-Reactive Protein (Crp) (08/06/16 03:49) Westergren Sedimentation Rate (08/06/16 03:49) Iv Access Insert/Monitor (08/06/16 03:49) Ecg Monitoring (08/06/16 03:49) Oximetry (08/06/16 03:49) Blood Culture (08/06/16 03:49) Ketorolac Inj (Toradol Inj) (08/06/16 04:00) Vancomycin Inj (Vancomycin Inj) (08/06/16 04:00) Mri C Spine W&W/O Contrast (08/06/16 ) Potassium Chloride (Kcl) (08/06/16 05:45) Gadodiamide Pf Inj (Omniscan Pf Inj) (08/06/16 08:35) Morphine Inj (Morphine Inj) (08/06/16 09:15) Admit Order (Ed Use Only) (08/06/16 10:04) Labs Laboratory Tests Test 08/06/16 04:00 White Blood Count 8.5 TH/MM3 Red Blood Count 4.00 MIL/MM3 Hemoglobin 7.9 GM/DL Hematocrit 24.1 % Mean Corpuscular Volume 60.2 FL Mean Corpuscular Hemoglobin 19.8 PG Mean Corpuscular Hemoglobin 32.8 % Concent Red Cell Distribution Width 16.3 % Platelet Count 256 TH/MM3 Mean Platelet Volume 8.8 FL Neutrophils (%) (Auto) 76.5 % Lymphocytes (%) (Auto) 14.2 % Monocytes (%) (Auto) 8.9 % Eosinophils (%) (Auto) 0.2 % Basophils (%) (Auto) 0.2 % Neutrophils # (Auto) 6.5 TH/MM3 Lymphocytes # (Auto) 1.2 TH/MM3 Monocytes # (Auto) 0.8 TH/MM3 Eosinophils # (Auto) 0.0 TH/MM3 Basophils # (Auto) 0.0 TH/MM3 CBC Comment AUTO DIFF Differential Total Cells 100 Counted Neutrophils % (Manual) 81 % Band Neutrophils % 4 % Lymphocytes % 13 % Monocytes % 2 % Neutrophils # (Manual) 7.2 TH/MM3 Differential Comment FINAL DIFF MANUAL Platelet Estimate NORMAL Platelet Morphology Comment NORMAL Helmet Cells OCC Acanthocytes OCC Erythrocyte Sedimentation Rate 85 mm/hr Sodium Level 133 MEQ/L Potassium Level 3.1 MEQ/L Chloride Level 97 MEQ/L Carbon Dioxide Level 26.8 MEQ/L Anion Gap 9 MEQ/L Blood Urea Nitrogen 17 MG/DL Creatinine 0.67 MG/DL Estimat Glomerular Filtration 96 ML/MIN Rate Random Glucose 96 MG/DL Calcium Level 8.7 MG/DL C-Reactive Protein 12.80 MG/DL [facility] Medical Record Reviewed: Yes Supervised Visit with [place]: No Diagnosis Primary Impression: Osteomyelitis of cervical spine Additional Impression: Fever Admitting Information Admitting Physician Requests: Admit Scripts No Active Prescriptions or Reported Meds Luisito Lockhart MD August 06, 2016 10:08
[2016-08-06] MEDS ORDERED: oxyCODONE/ACETAMINOPHEN 5 MG/325 MG TAB PO PRN ×2 (11:15→15:54)
[2016-08-06] MEDS: DOCUSATE SODIUM 100 MG CAP PO SCH ×2 (11:15→20:47)
[2016-08-06] MEDS ORDERED: SENNOSIDES 8.6 MG TAB PO PRN (11:15)
[2016-08-06] MEDS ORDERED: SODIUM CHLORIDE 0.9% FLUSH 10 ML FLUSH IV FLUSH PRN (11:15)
[2016-08-06] MEDS ORDERED: NALOXONE HCL 0.4 MG/ML AMP IV PRN (11:15)
[2016-08-06] MEDS ORDERED: Vancomycin Consult Pharmacy 1 EA OTHER SCH (11:15)
[2016-08-06] MEDS ORDERED: ACETAMINOPHEN 325 MG TAB PO PRN ×2 (11:15)
[2016-08-06 11:23] VITALS: BP 105/58; PULSE 80; RESP 16; TEMP 98.5; O2SAT 100
[2016-08-06] MEDS: RIFAMPIN 150 MG CAP PO SCH ×2 (12:00→20:55)
[2016-08-06] MEDS: VANCOMYCIN INJ 1,250 MG in SODIUM CHLOR 0.9% 250 ML INJ 250 ML IV SCH (14:00)
--- NOTE | 2016-08-06 14:46 | HHI.HP ---
[facility]Staff Admission Diagnosis cervical osteomyelitis/sepsis Diagnoses: Chief Complaint: Pain Travel History International Travel<30 Days: No Contact w/Intl Traveler <30 Da: No Traveled to Known Affected Are: No History of Present Illness The patient is a 45-year-old female with a history of drug use associated with multiple abscesses and cervical osteomyelitis who is presenting to the hospital with increasing neck pain and low-grade fevers. The patient was discharged from the hospital last month on IV vancomycin and by mouth rifampin. She also had home health care at the time. She was told that her vancomycin trough was too high and that she should go to the emergency department to get checked out. The patient did not do that and her vancomycin was discontinued. She has not had any vancomycin for the past 2-3 weeks. She said she was supposed to see a new infectious disease doctor today. She started developing increasing neck pain. The pain would radiate to both of her shoulders. She has a cervical collar in place. She has been able to ambulate until yesterday when she felt significantly weak. She said she couldn't move and was confined to the bed. She has been taking Lortab for her pain and was due to see a pain specialist on the . Past Family Social History Past Medical History Tricuspid valve endocarditis Large acute abscess in the retropharyngeal-prevertebral area Lumbar epidural abscess Lumbar intradural abscess IV drug abuse Past Surgical History Evacuation prevertebral - retropharyngeal neck abscess 05/25/16 Left L1-2 and left L5-S1 semi-laminectomy, evacuation of epidural and intradural abscess and Evacuation left L5 level lumbar paraspinous muscle abscess 05/29/16 Allergies: Coded Allergies: Penicillin (Verified Allergy, Intermediate, Rash, 08/06/16) Has taken Keflex without any problem *MDRO Multi-Drug Resistant Organism (Verified Adverse Reaction, Unknown, ) MRSA (blood) - 05/14/16, 05/16/16, 05/18/16; (sputum) - 05/17/16 MRSA (back abscess)-05/28/16 Uncoded Allergies: chemical allergy (Allergy, Severe, anaphalactic, 09/27/12) Active Ordered Medications Current Medications Medications (Trade) Dose Ordered Sig/Declan Route Start Time Stop Time Status Last Admin Rifampin 300 mg 300 mg Q12HR PO 08/06/16 12:00 08/06/16 12:00 (Vancomycin Consult Pharmacy) 0 ml @ 0 mls/hr UNSCH OTHER 08/06/16 11:15 (NS Flush) 2 ml UNSCH PRN IV FLUSH 08/06/16 11:15 (NS Flush) 2 ml BID IV FLUSH 08/06/16 21:00 (Tylenol) 650 mg Q4H PRN PO 08/06/16 11:15 (Colace) 100 mg Q12H PO 08/06/16 11:15 08/06/16 11:15 (Senokot) 17.2 mg Q12H PRN PO 08/06/16 11:15 (Tylenol) 650 mg Q6H PRN PO 08/06/16 11:15 (Percocet 5-325 Mg) 1 tab Q6H PRN PO 08/06/16 11:15 08/06/16 13:00 Naloxone HCl 0.4 mg 0.4 mg UNSCH PRN IV 08/06/16 11:15 (Vancomycin Inj/ NS 250 ml Inj) 262.5 ml @ 250 mls/hr Q12H IV 08/06/16 14:00 08/06/16 14:00 Miscellaneous Information SPECIFIC LAB TO BE DRAWN:VANCOMYCIN TROUGH DATE TO... ONCE ONCE .XX 08/08/16 13:45 08/08/16 13:46 Family History Lung cancer Breast cancer Social History The patient says she has not used drugs in 5 months. She smokes 10 cigarettes per day. She does not use alcohol. Physical Exam Vital Signs Vital Signs Date Time Temp Pulse Resp B/P Pulse Ox O2 Delivery O2 Flow Rate FiO2 08/06/16 11:23 98.5 80 16 105/58 100 Room Air 08/06/16 09:39 84 16 108/51 100 08/06/16 09:39 100 Room Air 08/06/16 03:36 99.2 105 20 129/58 100 Physical Exam GENERAL: Well-nourished, well-developed patient. SKIN: Focused skin assessment warm/dry. HEAD: Normocephalic. EYES: No scleral icterus. No injection or drainage. NECK: Supple, trachea midline. No JVD or lymphadenopathy. Patient has moderate tenderness on palpation of the paraspinal area cervical spine. No midline tenderness. No crepitus no deformity noted. No redness no induration of the soft tissue of the neck. CARDIOVASCULAR: Regular rate and rhythm. Grade 1 systolic murmur appreciated. RESPIRATORY: Breath sounds equal bilaterally. No accessory muscle use. GASTROINTESTINAL: Abdomen soft, non-tender, nondistended. MUSCULOSKELETAL: No cyanosis, or edema. BACK: Nontender without obvious deformity. No CVA tenderness. NEURO: Motor strength 5/5 in upper and lower extremities. PSYCH: Mood and affect appropriate. Laboratory Laboratory Tests Test 08/06/16 04:00 White Blood Count 8.5 Red Blood Count 4.00 Hemoglobin 7.9 Hematocrit 24.1 Mean Corpuscular Volume 60.2 Mean Corpuscular Hemoglobin 19.8 Mean Corpuscular Hemoglobin 32.8 Concent Red Cell Distribution Width 16.3 Platelet Count 256 Mean Platelet Volume 8.8 Neutrophils (%) (Auto) 76.5 Lymphocytes (%) (Auto) 14.2 Monocytes (%) (Auto) 8.9 Eosinophils (%) (Auto) 0.2 Basophils (%) (Auto) 0.2 Neutrophils # (Auto) 6.5 Lymphocytes # (Auto) 1.2 Monocytes # (Auto) 0.8 Eosinophils # (Auto) 0.0 Basophils # (Auto) 0.0 CBC Comment AUTO DIFF Differential Total Cells 100 Counted Neutrophils % (Manual) 81 Band Neutrophils % 4 Lymphocytes % 13 Monocytes % 2 Neutrophils # (Manual) 7.2 Differential Comment FINAL DIFF MANUAL Platelet Estimate NORMAL Platelet Morphology Comment NORMAL Helmet Cells OCC Acanthocytes OCC Erythrocyte Sedimentation Rate 85 Sodium Level 133 Potassium Level 3.1 Chloride Level 97 Carbon Dioxide Level 26.8 Anion Gap 9 Blood Urea Nitrogen 17 Creatinine 0.67 Estimat Glomerular Filtration 96 Rate Random Glucose 96 Calcium Level 8.7 C-Reactive Protein 12.80 Date/Time Procedure Status Source Growth 08/06/16 04:05 Aerobic Blood Culture Received Blood Peripheral Pending 08/06/16 04:05 Anaerobic Blood Culture Received Blood Peripheral Pending Result Diagram: 08/06/16 0400 08/06/16 0400 Imaging Last Impressions Cervical Spine MRI 08/06/16 0000 Signed Impressions: Service Date/Time: Saturday, August 06, 2016 08:06 - CONCLUSION: 1. Deformity of C3 vertebral body with dorsal and elation at this level causing mild canal stenosis, unchanged. 2. Enhancement of the posterior soft tissues greatest from C1-C4 level. 3. Posterior disc osteophyte complex at C5-6 causing minimal canal stenosis. 4. Fusion at C4-5. 5. There has been improvement of soft tissue enhancement on current study. Yvan Sebastian MD Assessment and Plan Assessment and Plan C3 osteomyelitis The patient was supposed to be on IV vancomycin and by mouth rifampin but discontinued those medications weeks ago. MRI showed: Deformity of C3 vertebral body with dorsal elevation at this level causing mild canal stenosis, unchanged; Enhancement of the posterior soft tissues greatest from C1-C4 level; Posterior disc osteophyte complex at C5-6 causing minimal canal stenosis; Fusion at C4-5; There has been improvement of soft tissue enhancement on current study. - ID consult requested. - neurosurgery follow-up as an outpt. - Currently on cervical collar, patient is refusing halo. - Per neurosurgeon, Dr. Oliver, patient will eventually need further anterior- posterior cervical spine surgery for stabilization. - continue Vancomycin IV and Rifampin 300mg PO Q12hrs. - continue with pain control. Pain management follow-up as an outpt. Hypokalemia Likely s/t decreased po intake. - replete and monitor. - check a mag and phos level. Thalassemia Hemoglobin is similar to baseline. - Continue to monitor. Nicotine abuse The patient smokes about 10 cigarettes daily. - Cessation instruction. - Nicotine patch. PPx: SCDs. Code Status Full. Discussed Condition With Dr. Holloway, pt, nurse. Physician Certification 2 Midnight Certification Type: Admission for Inpatient Services Order for Inpatient Services The services are ordered in accordance with Medicare regulations or non- Medicare payer requirements, as applicable. In the case of services not specified as inpatient-only, they are appropriately provided as inpatient services in accordance with the 2-midnight benchmark. Estimated LOS (days): 2 days is the estimated time the patient will need to remain in the hospital, assuming treatment plan goals are met and no additional complications. Post-Hospital Plan: Not yet determined Reginald Houser DO August 06, 2016 14:46
[2016-08-06 15:50] VITALS: BP 106/60; PULSE 78; RESP 16; TEMP 98.5; O2SAT 100
[2016-08-06] MEDS ORDERED: VANCOMYCIN INJ 1,000 MG in SODIUM CHLOR 0.9% 250 ML INJ 250 ML IV SCH (16:00)
[2016-08-06 16:13] LABS: MAGNESIUM 1.9 MG/DL (1.5-2.5)
[2016-08-06] MEDS: NICOTINE 14 MG/24 HR PATCH T-DERMAL SCH (16:14)
[2016-08-06] MEDS: oxyCODONE/ACETAMINOPHEN 10 MG/325 MG TAB PO PRN ×2 (17:28→22:37)
[2016-08-06 20:00] VITALS: BP 101/55; PULSE 86; RESP 22; TEMP 100.4; O2SAT 97
[2016-08-06] MEDS: REMOVE OLD PATCH T-DERMAL SCH (20:50)
[2016-08-06] MEDS: SODIUM CHLORIDE 0.9% FLUSH 10 ML FLUSH IV FLUSH SCH (20:50)
[2016-08-07] VITALS: BP 101/57; PULSE 73; RESP 20; TEMP 97.2; O2SAT 100
[2016-08-07] MEDS: VANCOMYCIN INJ 1,250 MG in SODIUM CHLOR 0.9% 250 ML INJ 250 ML IV SCH ×2 (01:05→14:15)
[2016-08-07] MEDS: oxyCODONE/ACETAMINOPHEN 10 MG/325 MG TAB PO PRN ×5 (02:54→23:58)
[2016-08-07 07:02] LABS: AUTOMATED NEUTROPHIL # 2.7 TH/MM3 (1.8-7.7); BASOPHIL % 0.7 % (0.0-2.0); EOSINOPHIL # 0.1 TH/MM3 (0-0.4); EOSINOPHIL % 2.7 % (0.0-4.0); HEMATOCRIT 23.6 % (35.0-46.0); LYMPH % 24.5 % (9.0-44.0); LYMPHOCYTE # 1.1 TH/MM3 (1.0-4.8); MEAN CELL VOLUME 62.1 FL (80.0-100.0); MEAN CORPUSCULAR HEMOGLOBIN 19.2 PG (27.0-34.0); MEAN CORPUSCULAR HGB CONC 30.9 % (32.0-36.0); MONO % 12.8 % (0.0-8.0); NEUT % 59.3 % (16.0-70.0); PLATELET COUNT 221 TH/MM3 (150-450); RED CELL DISTRIBUTION WIDTH 16.3 % (11.6-17.2); WHITE BLOOD COUNT 4.5 TH/MM3 (4.0-11.0)
[2016-08-07 07:14] LABS: HEMO FLAGS AUTO DIFF
[2016-08-07] MEDS: RIFAMPIN 150 MG CAP PO SCH ×2 (07:16→20:07)
[2016-08-07] MEDS: NICOTINE 14 MG/24 HR PATCH T-DERMAL SCH (07:16)
[2016-08-07 07:30] LABS: ALKALINE PHOSPHATASE 69 U/L (45-117); ALT (GPT) 12 U/L (10-53); ANION GAP 5 MEQ/L (5-15); AST (GOT) 13 U/L (15-37); BICARBONATE 29.1 MEQ/L (21.0-32.0); BLOOD UREA NITROGEN 13 MG/DL (7-18); CHLORIDE 104 MEQ/L (98-107); GLOMERULAR FILTRATION RATE 105 ML/MIN (>89); POTASSIUM 4.1 MEQ/L (3.5-5.1); SODIUM (NA) 138 MEQ/L (136-145); TOTAL BILIRUBIN ADULT 0.8 MG/DL (0.2-1.0)
[2016-08-07 08:00] VITALS: BP 94/54; PULSE 64; RESP 16; TEMP 97.4; O2SAT 99
[2016-08-07 08:56] LABS: SCAN/DIFF AUTO DIFF CONFIRMED
[2016-08-07] MEDS: SODIUM CHLORIDE 0.9% FLUSH 10 ML FLUSH IV FLUSH SCH ×2 (09:00→20:10)
--- NOTE | 2016-08-07 09:31 | HHI.PR ---
Subjective Remarks The patient said there was too much time in between her pain medications. She did say overall she felt better. She was ordering breakfast. She had no other acute complaints. Objective Vitals Vital Signs Date Time Temp Pulse Resp B/P Pulse Ox O2 Delivery O2 Flow Rate FiO2 08/07/16 08:00 97.4 64 16 94/54 99 08/07/16 00:00 97.2 73 20 101/57 100 08/06/16 20:00 100.4 86 22 101/55 97 08/06/16 15:50 98.5 78 16 106/60 100 08/06/16 11:23 98.5 80 16 105/58 100 Room Air 08/06/16 09:39 84 16 108/51 100 08/06/16 09:39 100 Room Air I/O 08/06/16 08/06/16 08/06/16 08/07/16 08/07/16 08/07/16 07:00 15:00 23:00 07:00 15:00 23:00 Intake Total 320 ml 730 ml Output Total 200 ml 700 ml Balance 120 ml 30 ml Intake Oral 320 ml 480 ml IV Total 0 ml 250 ml Output Urine Total 200 ml 700 ml # Voids 2 # Bowel Movements 0 0 Result Diagram: 08/07/16 0625 08/07/16 0625 Imaging Last Impressions Cervical Spine MRI 08/06/16 0000 Signed Impressions: Service Date/Time: Saturday, August 06, 2016 08:06 - CONCLUSION: 1. Deformity of C3 vertebral body with dorsal and elation at this level causing mild canal stenosis, unchanged. 2. Enhancement of the posterior soft tissues greatest from C1-C4 level. 3. Posterior disc osteophyte complex at C5-6 causing minimal canal stenosis. 4. Fusion at C4-5. 5. There has been improvement of soft tissue enhancement on current study. Yvan Sebastian MD Objective Remarks GENERAL: Well-nourished, well-developed patient. SKIN: Focused skin assessment warm/dry. HEAD: Normocephalic. EYES: No scleral icterus. No injection or drainage. NECK: Supple, trachea midline. No JVD or lymphadenopathy. Patient has moderate tenderness on palpation of the paraspinal area cervical spine. No midline tenderness. No crepitus no deformity noted. No redness no induration of the soft tissue of the neck. CARDIOVASCULAR: Regular rate and rhythm. Grade 1 systolic murmur appreciated. RESPIRATORY: Breath sounds equal bilaterally. No accessory muscle use. GASTROINTESTINAL: Abdomen soft, non-tender, nondistended. MUSCULOSKELETAL: No cyanosis, or edema. BACK: Nontender without obvious deformity. No CVA tenderness. NEURO: Motor strength 5/5 in upper and lower extremities. PSYCH: Mood and affect appropriate. Medications and IVs Current Medications Medications (Trade) Dose Ordered Sig/Declan Route Start Time Stop Time Status Last Admin Rifampin 300 mg 300 mg Q12HR PO 08/06/16 12:00 08/07/16 07:16 (Vancomycin Consult Pharmacy) 0 ml @ 0 mls/hr UNSCH OTHER 08/06/16 11:15 (NS Flush) 2 ml UNSCH PRN IV FLUSH 08/06/16 11:15 (NS Flush) 2 ml BID IV FLUSH 08/06/16 21:00 08/06/16 20:50 (Tylenol) 650 mg Q4H PRN PO 08/06/16 11:15 08/06/16 20:48 (Colace) 100 mg Q12H PO 08/06/16 11:15 08/06/16 20:47 (Senokot) 17.2 mg Q12H PRN PO 08/06/16 11:15 (Tylenol) 650 mg Q6H PRN PO 08/06/16 11:15 Naloxone HCl 0.4 mg 0.4 mg UNSCH PRN IV 08/06/16 11:15 (Vancomycin Inj/ NS 250 ml Inj) 262.5 ml @ 250 mls/hr Q12H IV 08/06/16 14:00 08/07/16 01:05 Miscellaneous Information SPECIFIC LAB TO BE DRAWN:VANCOMYCIN TROUGH DATE TO... ONCE ONCE .XX 08/08/16 13:45 08/08/16 13:46 (Percocet 10-325 Mg) 1 tab Q4H PRN PO 08/06/16 15:00 08/07/16 07:11 (Habitrol 14 Mg Patch.24 Hr) 1 patch DAILY T-DERMAL 08/06/16 15:15 08/07/16 07:16 Miscellaneous Information 1 HS T-DERMAL 08/06/16 21:00 08/06/16 20:50 (Percocet 5-325 Mg) 1 tab Q4H PRN PO 08/06/16 15:54 A/P Assessment and Plan C3 osteomyelitis The patient was supposed to be on IV vancomycin and by mouth rifampin but discontinued those medications weeks ago. MRI showed: Deformity of C3 vertebral body with dorsal elevation at this level causing mild canal stenosis, unchanged; Enhancement of the posterior soft tissues greatest from C1-C4 level; Posterior disc osteophyte complex at C5-6 causing minimal canal stenosis; Fusion at C4-5; There has been improvement of soft tissue enhancement on current study. - ID consult requested. - neurosurgery follow-up as an outpt. - Currently on cervical collar, patient refused Halo in the past. - Per neurosurgeon, Dr. Oliver, patient will eventually need further anterior- posterior cervical spine surgery for stabilization. - continue Vancomycin IV and Rifampin 300mg PO Q12hrs. - continue with pain control. Pain management follow-up as an outpt. Hypokalemia Likely s/t decreased po intake. - replete and monitor. Resolved. Thalassemia Hemoglobin is similar to baseline. - Continue to monitor and transfuse as needed. Nicotine abuse The patient smokes about 10 cigarettes daily. - Cessation instruction. - Nicotine patch. PPx: SCDs. Discharge Planning Awaiting ID evaluation. Reginald Houser DO August 07, 2016 09:31
[2016-08-07] MEDS: MORPHINE SULFATE 4 MG/ML INJ IV PUSH PRN ×3 (10:08→22:23)
[2016-08-07] MEDS: DOCUSATE SODIUM 100 MG CAP PO SCH ×2 (10:12→20:08)
[2016-08-07 12:00] VITALS: BP 112/54; PULSE 88; RESP 16; TEMP 97.1; O2SAT 99
--- NOTE | 2016-08-07 13:26 | PD.ID.CON ---
History of Present Illness Service ID Consult Requested By Dr Houser Reason for Consult diskitis C spine Primary Care Physician Non-Staff Diagnoses: History of Present Illness 45 y o IVDUser with h/o recent MRSA endocarditis, tricuspid valve complicated by retropharyngeal-prevertebral abscess extending down to the previous anterior cervical instrumentation, sp evacuation and lumbar epidural abscess and intradural abscess sp Left L1-2 and left L5-S1 semi-laminectomy, evacuation of epidural and intradural abscess and evacuation left L5 level lumbar paraspinous muscle abscess She was readmitted last month with persistent and progressive C 3 osteomyelitis progressed to osteolysis resulting in focal kyphosis She refused surgery and was d/c'd with Ccollar She was discharged on VANCO IV + RIfampin po course, but was non compliant with both OPAT and neurosurgery follow ups She did nnot take vanco for 2 weeks She came to ER yday with low-grade fevers and neck pain. She was started on vancomycin IV MRI showed deformity of C3 vertebral body with dorsal and elation at this level causing mild canal stenosis, unchanged, enhancement of the posterior soft tissues greatest from C1-C4 level. There has been improvement of soft tissue enhancement on current study Blood clx are growing MSSA (prelim ID) in 4/4 bottles of 2 blood clx sets Review of Systems Except as stated in HPI: all other systems reviewed are Neg Past Family Social History Allergies: Coded Allergies: Penicillin (Verified Allergy, Intermediate, Rash, 08/06/16) Has taken Keflex without any problem *MDRO Multi-Drug Resistant Organism (Verified Adverse Reaction, Unknown, ) MRSA (blood) - 05/14/16, 05/16/16, 05/18/16; (sputum) - 05/17/16 MRSA (back abscess)-05/28/16 Uncoded Allergies: chemical allergy (Allergy, Severe, anaphalactic, 09/27/12) Past Medical History Tricuspid valve endocarditis, MRSA Large acute abscess in the retropharyngeal-prevertebral , extending down to the previous anterior cervical instrumentation, MRSA Lumbar epidural abscess, MRSA Lumbar intradural abscess, MRSA Past Surgical History Evacuation prevertebral - retropharyngeal neck abscess 05/25/16 Left L1-2 and left L5-S1 semi-laminectomy, evacuation of epidural and intradural abscess and Evacuation left L5 level lumbar paraspinous muscle abscess 05/29/16 Active Ordered Medications Medications where reviewed in EMR Antibiotics Include: vancomycin IV Family History Non-Contributory. Social History No Tobacco. No ETOH. + IVDU : Iv meth, dilaudid Physical Exam Vital Signs Vital Signs Date Time Temp Pulse Resp B/P Pulse Ox O2 Delivery O2 Flow Rate FiO2 08/07/16 12:00 97.1 88 16 112/54 99 08/07/16 08:00 97.4 64 16 94/54 99 08/07/16 00:00 97.2 73 20 101/57 100 08/06/16 20:00 100.4 86 22 101/55 97 08/06/16 15:50 98.5 78 16 106/60 100 Physical Exam CONSTITUTIONAL/GENERAL: This is an adequately nourished patient, in no apparent distress. TUBES/LINES/DRAINS: PICC in place SKIN: No jaundice, rashes, or lesions. Ecchymoses on upper extremities. No wounds seen anteriorly. Skin temperature appropriate. Not diaphoretic. HEAD: Atraumatic. Normocephalic. EYES: Pupils equal and round and reactive. Extraocular motions intact. No scleral icterus. No injection or drainage. Fundi not examined. ENT: Hearing grossly normal. Nose without bleeding or purulent drainage. Throat without visible erythema, exudates, masses, or lesions. NECK: C collar in place CARDIOVASCULAR: Regular rate and rhythm without murmurs, gallops, or rubs. No JVD. Peripheral pulses symmetric. RESPIRATORY/CHEST: Symmetric, unlabored respirations. Clear to auscultation. Breath sounds equal bilaterally. No wheezes, rales, or rhonchi. GASTROINTESTINAL: Abdomen soft, non-tender, nondistended. No hepato-splenomegaly , or palpable masses. No guarding. Bowel sounds present. GENITOURINARY: Without palpable bladder distension. Enrique catheter in place. MUSCULOSKELETAL: Extremities without clubbing, cyanosis, or edema. No joint tenderness or effusion noted. No calf tenderness. No mottling or clubbing. BACK: healed incision LYMPHATICS: No palpable cervical or supraclavicular adenopathy. NEUROLOGICAL: Awake and alert. Motor and sensory grossly within normal limits. Follows commands. Cognitively sharp. Moves all extremities. PSYCHIATRIC: No obvious anxiety/depression. no apparent hallucinations or other psychotic thought process. Laboratory Laboratory Tests Test 08/07/16 06:25 White Blood Count 4.5 Red Blood Count 3.80 Hemoglobin 7.3 Hematocrit 23.6 Mean Corpuscular Volume 62.1 Mean Corpuscular Hemoglobin 19.2 Mean Corpuscular Hemoglobin 30.9 Concent Red Cell Distribution Width 16.3 Platelet Count 221 Mean Platelet Volume 8.8 Neutrophils (%) (Auto) 59.3 Lymphocytes (%) (Auto) 24.5 Monocytes (%) (Auto) 12.8 Eosinophils (%) (Auto) 2.7 Basophils (%) (Auto) 0.7 Neutrophils # (Auto) 2.7 Lymphocytes # (Auto) 1.1 Monocytes # (Auto) 0.6 Eosinophils # (Auto) 0.1 Basophils # (Auto) 0.0 CBC Comment AUTO DIFF Differential Comment AUTO DIFF CONFIRMED Sodium Level 138 Potassium Level 4.1 Chloride Level 104 Carbon Dioxide Level 29.1 Anion Gap 5 Blood Urea Nitrogen 13 Creatinine 0.62 Estimat Glomerular Filtration 105 Rate Random Glucose 127 Calcium Level 8.3 Total Bilirubin 0.8 Aspartate Amino Transf 13 (AST/SGOT) Alanine Aminotransferase 12 (ALT/SGPT) Alkaline Phosphatase 69 Total Protein 6.9 Albumin 2.3 Date/Time Procedure Status Source Growth 08/06/16 04:05 Aerobic Blood Culture - Final Complete Blood Peripheral Staphylococcus Aureus 08/06/16 04:05 Anaerobic Blood Culture - Final Complete Staphylococcus Aureus 08/06/16 04:00 Aerobic Blood Culture - Preliminary Resulted Blood Peripheral Staphylococcus Aureus 08/06/16 04:00 Anaerobic Blood Culture - Preliminary Resulted Staphylococcus Aureus Result Diagram: 08/07/16 0625 08/07/16 0625 Imaging Last Impressions Cervical Spine MRI 08/06/16 0000 Signed Impressions: Service Date/Time: Saturday, August 06, 2016 08:06 - CONCLUSION: 1. Deformity of C3 vertebral body with dorsal and elation at this level causing mild canal stenosis, unchanged. 2. Enhancement of the posterior soft tissues greatest from C1-C4 level. 3. Posterior disc osteophyte complex at C5-6 causing minimal canal stenosis. 4. Fusion at C4-5. 5. There has been improvement of soft tissue enhancement on current study. Yvan Sebastian MD Assessment and Plan Assessment and Plan Left L1-2 and left L5-S1 semi-laminectomy, evacuation of epidural and intradural abscess and evacuation left L5 level lumbar paraspinous muscle abscess C3 osteomyelitis with osteolysis Recent TV endocarditis, MRSA, IVDU related Non compliance MSSA bacteremia ? PIVCC line infx Pt with PCN allergy but records indicate cephalosporine use uneventfully earlier this year - cont vancomycin add rifampin consult Dr Melody summers PICC start cefaolin 2 D echo not a candidate for PETER 2/2 unstable neck Dina Carlos MD August 07, 2016 13:26
[2016-08-07 16:00] VITALS: BP 110/80; PULSE 69; RESP 16; TEMP 97.6; O2SAT 99
[2016-08-07] MEDS ORDERED: Vancomycin Consult Pharmacy 1 EA OTHER SCH (17:30)
[2016-08-07] MEDS: ceFAZolin 2 GM PREMIX 50 ML IV SCH (18:12)
[2016-08-07 20:00] VITALS: BP 96/51; PULSE 76; RESP 16; TEMP 97.8; O2SAT 97
[2016-08-07] MEDS: REMOVE OLD PATCH T-DERMAL SCH (21:00)
[2016-08-08] VITALS: BP 110/60; PULSE 70; RESP 16; TEMP 98.2; O2SAT 98
[2016-08-08] MEDS: ceFAZolin 2 GM PREMIX 50 ML IV SCH ×3 (01:55→17:22)
[2016-08-08] MEDS: VANCOMYCIN INJ 1,250 MG in SODIUM CHLOR 0.9% 250 ML INJ 250 ML IV SCH ×2 (01:55→13:04)
[2016-08-08] MEDS: oxyCODONE/ACETAMINOPHEN 10 MG/325 MG TAB PO PRN ×3 (05:02→17:22)
[2016-08-08 05:11] LABS: AUTOMATED NEUTROPHIL # 3.5 TH/MM3 (1.8-7.7); BASOPHIL % 0.4 % (0.0-2.0); EOSINOPHIL # 0.2 TH/MM3 (0-0.4); EOSINOPHIL % 3.4 % (0.0-4.0); HEMATOCRIT 25.4 % (35.0-46.0); LYMPH % 26.4 % (9.0-44.0); LYMPHOCYTE # 1.5 TH/MM3 (1.0-4.8); MEAN CELL VOLUME 61.2 FL (80.0-100.0); MEAN CORPUSCULAR HEMOGLOBIN 19.8 PG (27.0-34.0); MEAN CORPUSCULAR HGB CONC 32.4 % (32.0-36.0); MONO % 9.9 % (0.0-8.0); NEUT % 59.9 % (16.0-70.0); PLATELET COUNT 348 TH/MM3 (150-450); RED BLOOD COUNT 4.15 MIL/MM3 (4.00-5.30); RED CELL DISTRIBUTION WIDTH 16.7 % (11.6-17.2); WHITE BLOOD COUNT 5.9 TH/MM3 (4.0-11.0)
[2016-08-08 05:34] LABS: HEMO FLAGS AUTO DIFF
[2016-08-08] MEDS: MORPHINE SULFATE 4 MG/ML INJ IV PUSH PRN ×3 (06:03→20:04)
[2016-08-08 08:00] VITALS: BP 119/63; PULSE 55; RESP 16; TEMP 97; O2SAT 99
[2016-08-08 08:11] LABS: SCAN/DIFF AUTO DIFF CONFIRMED
[2016-08-08] MEDS: RIFAMPIN 150 MG CAP PO SCH ×2 (09:34→19:54)
[2016-08-08] MEDS: NICOTINE 14 MG/24 HR PATCH T-DERMAL SCH (09:34)
--- NOTE | 2016-08-08 10:42 | HHI.PR ---
Subjective Remarks The patient was upset after talking to the neurosurgeon. She was told that he might not be able to repair her neck. Her daughter was at the bedside. Their questions were answered. Objective Vitals Vital Signs Date Time Temp Pulse Resp B/P Pulse Ox O2 Delivery O2 Flow Rate FiO2 08/08/16 08:00 97.0 55 16 119/63 99 08/08/16 00:00 98.2 70 16 110/60 98 08/07/16 20:00 97.8 76 16 96/51 97 08/07/16 16:00 97.6 69 16 110/80 99 08/07/16 12:00 97.1 88 16 112/54 99 I/O 08/07/16 08/07/16 08/07/16 08/08/16 08/08/16 08/08/16 07:00 15:00 23:00 07:00 15:00 23:00 Intake Total 730 ml 340 ml 240 ml 536 ml Output Total 700 ml 700 ml Balance 30 ml -360 ml 240 ml 536 ml Intake Oral 480 ml 340 ml 240 ml 240 ml IV Total 250 ml 296 ml Output Urine Total 700 ml 700 ml # Voids 2 2 # Bowel Movements 0 0 0 0 Result Diagram: 08/08/16 0351 08/07/16 0625 Imaging Last Impressions Cervical Spine MRI 08/06/16 0000 Signed Impressions: Service Date/Time: Saturday, August 06, 2016 08:06 - CONCLUSION: 1. Deformity of C3 vertebral body with dorsal and elation at this level causing mild canal stenosis, unchanged. 2. Enhancement of the posterior soft tissues greatest from C1-C4 level. 3. Posterior disc osteophyte complex at C5-6 causing minimal canal stenosis. 4. Fusion at C4-5. 5. There has been improvement of soft tissue enhancement on current study. Yvan Sebastian MD Objective Remarks GENERAL: Well-nourished, well-developed patient. SKIN: Focused skin assessment warm/dry. Multiple lesions on upper and lower extremities. HEAD: Normocephalic. EYES: No scleral icterus. No injection or drainage. NECK: Supple, trachea midline. No JVD or lymphadenopathy. Patient has moderate tenderness on palpation of the paraspinal area cervical spine. No midline tenderness. No crepitus no deformity noted. No redness no induration of the soft tissue of the neck. CARDIOVASCULAR: Regular rate and rhythm. Grade 1 systolic murmur appreciated. RESPIRATORY: Breath sounds equal bilaterally. No accessory muscle use. GASTROINTESTINAL: Abdomen soft, non-tender, nondistended. MUSCULOSKELETAL: No cyanosis, or edema. BACK: Nontender without obvious deformity. No CVA tenderness. NEURO: Motor strength 5/5 in upper and lower extremities. PSYCH: Teary-eyed. Medications and IVs Current Medications Medications (Trade) Dose Ordered Sig/Declan Route Start Time Stop Time Status Last Admin (NS Flush) 2 ml UNSCH PRN IV FLUSH 08/06/16 11:15 (NS Flush) 2 ml BID IV FLUSH 08/06/16 21:00 08/07/16 20:10 (Tylenol) 650 mg Q4H PRN PO 08/06/16 11:15 08/06/16 20:48 (Colace) 100 mg Q12H PO 08/06/16 11:15 08/07/16 20:08 (Senokot) 17.2 mg Q12H PRN PO 08/06/16 11:15 (Tylenol) 650 mg Q6H PRN PO 08/06/16 11:15 Naloxone HCl 0.4 mg 0.4 mg UNSCH PRN IV 08/06/16 11:15 (Vancomycin Inj/ NS 250 ml Inj) 262.5 ml @ 250 mls/hr Q12H IV 08/06/16 14:00 08/08/16 01:55 Miscellaneous Information SPECIFIC LAB TO BE DRAWN:VANCOMYCIN TROUGH DATE TO... ONCE ONCE .XX 08/08/16 13:45 08/08/16 13:46 (Percocet 10-325 Mg) 1 tab Q4H PRN PO 08/06/16 15:00 08/08/16 09:35 (Habitrol 14 Mg Patch.24 Hr) 1 patch DAILY T-DERMAL 08/06/16 15:15 08/08/16 09:34 Miscellaneous Information 1 HS T-DERMAL 08/06/16 21:00 08/07/16 21:00 (Percocet 5-325 Mg) 1 tab Q4H PRN PO 08/06/16 15:54 Morphine Sulfate 2 mg 2 mg Q6HR PRN IV PUSH 08/07/16 09:30 08/08/16 06:03 (Ancef 2 Gm Premix) 50 ml @ 100 mls/hr Q8H IV 08/07/16 18:00 08/08/16 09:34 Rifampin 300 mg 300 mg Q12HR PO 08/07/16 21:00 08/08/16 09:34 (Vancomycin Consult Pharmacy) 0 ml @ 0 mls/hr UNSCH OTHER 08/07/16 17:30 A/P Assessment and Plan C3 osteomyelitis The patient was supposed to be on IV vancomycin and by mouth rifampin but discontinued those medications weeks ago. MRI showed: Deformity of C3 vertebral body with dorsal elevation at this level causing mild canal stenosis, unchanged; Enhancement of the posterior soft tissues greatest from C1-C4 level; Posterior disc osteophyte complex at C5-6 causing minimal canal stenosis; Fusion at C4-5; There has been improvement of soft tissue enhancement on current study. ID consult appreciated. 07/01 blood cultures positive for staph aureus. - neurosurgery consult pending. - Currently on cervical collar, patient refused Halo in the past. - continue vancomycin, cefazolin and rifampin per ID. - continue with pain control. Pain management follow-up as an outpt. Hypokalemia Likely s/t decreased po intake. - replete and monitor. Resolved. Thalassemia Hemoglobin is similar to baseline. - Continue to monitor and transfuse as needed. Nicotine abuse The patient smokes about 10 cigarettes daily. - Cessation instruction. - Nicotine patch. Allergies The pt complains of chronic allergies. - Zyrtec ordered. PPx: SCDs. Discharge Planning Awaiting clinical improvement. Reginald Houser DO August 08, 2016 10:42
[2016-08-08 12:00] VITALS: BP 122/76; PULSE 69; RESP 14; TEMP 96.9; O2SAT 100
--- NOTE | 2016-08-08 12:25 | ECHLIM ---
Study Study Date:08/08/2016 STUDY CONCLUSIONS SUMMARY - Left ventricle: The cavity size was normal. Wall thickness was normal. Systolic function was normal. The estimated ejection fraction was in the range of 55% to 60%. Wall motion was normal; there were no regional wall motion abnormalities. - Tricuspid valve: There was an apparent, 7mm (W) x 8mm (L) vegetation. Mild regurgitation. - Pulmonary arteries: PA peak pressure: 45mm Hg (S). If LV function is below 40, please consider prescribing an ACEI or ARB or document rationale for non-use. PROCEDURE DATA STUDY STATUS: Elective. Procedure: Transthoracic echocardiography. Image quality was good. Scanning was performed from the parasternal, apical, and subcostal acoustic windows. Study completion: The patient tolerated the procedure well. Transthoracic echocardiography. M-mode, complete 2D, complete spectral Doppler, and color Doppler. Patient status: Inpatient. CARDIAC ANATOMY LEFT VENTRICLE: The cavity size was normal. Wall thickness was normal. Systolic function was normal. The estimated ejection fraction was in the range of 55% to 60%. Wall motion was normal; there were no regional wall motion abnormalities. AORTIC VALVE: Trileaflet; normal thickness leaflets. Doppler: Transvalvular velocity was within the normal range. There was no stenosis. No regurgitation. AORTA: Aortic root: The aortic root was normal in size. MITRAL VALVE: Structurally normal valve. Doppler: Transvalvular velocity was within the normal range. There was no evidence for stenosis. No regurgitation. LEFT ATRIUM: The atrium was normal in size. RIGHT VENTRICLE: The cavity size was normal. Wall thickness was normal. PULMONIC VALVE: Doppler: Transvalvular velocity was within the normal range. There was no evidence for stenosis. No regurgitation. TRICUSPID VALVE: Structurally normal valve. There was an apparent, 7mm (W) x 8mm (L) vegetation. Doppler: Transvalvular velocity was within the normal range. Mild regurgitation. PULMONARY ARTERY: The main pulmonary artery was normal-sized. Systolic pressure was within the normal range. RIGHT ATRIUM: The atrium was normal in size. PERICARDIUM: There was no pericardial effusion. SYSTEMIC VEINS: Inferior vena cava: The vessel was normal in size. BASIC MEASUREMENTS ADULT NORMAL Left ventricle LV internal dimension, ED, chordal level, 46.8 mm 43-52 PLAX LV internal dimension, ES, chordal level, 34.7 mm 23-38 PLAX Fractional shortening, chordal level, PLAX *26 % >29 LV posterior wall thickness, ED 7.22 mm IVS/LVPW ratio, ED *1.54 <1.3 Ventricular septum Septal thickness, ED 11.1 mm Right ventricle RV internal dimension, ED, PLAX 27.5 mm 19-38 DOPPLER MEASUREMENTS ADULT NORMAL Main pulmonary artery Pressure, S *45 mm Hg =30 Tricuspid valve Regurgitant peak velocity 296 cm/s Peak RV-RA gradient, S 35 mm Hg Maximal regurgitant velocity 296 cm/s Systemic veins Estimated CVP 10 mm Hg Right ventricle RV pressure, S *45 mm Hg <30 LEGEND: Mean values are shown as u=mean value. Asterisk (*) mercado values outside specified normal range. Prepared and signed by Matteo Louis [id number]
[2016-08-08] MEDS: CETIRIZINE HCL 10 MG TAB PO SCH (13:15)
[2016-08-08] MEDS: DOCUSATE SODIUM 100 MG CAP PO SCH ×2 (13:15→19:54)
[2016-08-08] MEDS ORDERED: PHARMACY ORDERED LAB ONE (13:45)
--- NOTE | 2016-08-08 15:34 | HHI.PR ---
Addendum to Inpatient Note Additional Information 2 D echo noted: 7x 8 mm veg on TV repeat BC so far neg afebrile - fu repeat BC cont cefaoline cont vanco + Rif Televancin is a possibliity to cont o/p tx dw case mngr dw Dr Corrina Carlos,Dina Byers MD August 08, 2016 15:34
[2016-08-08 16:00] VITALS: BP 109/58; PULSE 63; RESP 14; TEMP 96.3; O2SAT 100
--- NOTE | 2016-08-08 18:29 | PD.CONS ---
History of Present Illness Consult Requested By Primary Care Physician Non-Staff Diagnoses: History of Present Illness 45-year-old female previously admitted to [facility] for large retropharyngeal-paravertebral abscess evacuated surgically. Subsequent diagnosis of lumbar epidural and intradural abscess also surgically evacuated. History of IV drug abuse with MRSA endocarditis. Patient previously readmitted after having developed C3 compression fracture with significant kyphosis. She was started on vancomycin and rifampin. She refused surgical intervention or halo placement despite significant instability and spinal canal compromise. She was discharged in a cervical collar. She failed to come for her most recent follow-up neurosurgery appointment, and could not be contacted. She now presents back to the hospital with persistent low-grade fever and progressive neck pain. No complaint of significant pain and weakness or numbness in the extremities. Past Family Social History Allergies: Coded Allergies: Penicillin (Verified Allergy, Intermediate, Rash, 08/06/16) Has taken Keflex without any problem *MDRO Multi-Drug Resistant Organism (Verified Adverse Reaction, Unknown, ) MRSA (blood) - 05/14/16, 05/16/16, 05/18/16; (sputum) - 05/17/16 MRSA (back abscess)-05/28/16 Uncoded Allergies: chemical allergy (Allergy, Severe, anaphalactic, 09/27/12) Physical Exam Vital Signs Vital Signs Date Time Temp Pulse Resp B/P Pulse Ox O2 Delivery O2 Flow Rate FiO2 08/08/16 16:00 96.3 63 14 109/58 100 08/08/16 12:00 96.9 69 14 122/76 100 08/08/16 08:00 97.0 55 16 119/63 99 08/08/16 00:00 98.2 70 16 110/60 98 08/07/16 20:00 97.8 76 16 96/51 97 Physical Exam GENERAL: Thin female, appears somewhat depressed.. SKIN: Numerous erythematous ulcerative type skin lesions throughout the upper and lower extremities. She states that they are "tick bites". HEAD: Atraumatic. Normocephalic. No temporal or scalp tenderness. EYES: Sclerae are clear and nonicteric ENT: Edentulous. Oral mucosa is somewhat erythematous NECK: Trachea midline. No JVD or lymphadenopathy. Supple, nontender, no meningeal signs. Neurologic: Awake and alert Conversant and appropriate Speech clear Follow simple commands well Extraocular movements intact Fascial sensorimotor testing intact Sensation intact light touch all extremities Strength within normal limits all extremities Ajith's response absent bilateral No ankle clonus Plantar responses absent Laboratory Laboratory Tests Test 08/08/16 08/08/16 03:51 16:22 White Blood Count 5.9 Red Blood Count 4.15 Hemoglobin 8.2 Hematocrit 25.4 Mean Corpuscular Volume 61.2 Mean Corpuscular Hemoglobin 19.8 Mean Corpuscular Hemoglobin 32.4 Concent Red Cell Distribution Width 16.7 Platelet Count 348 Mean Platelet Volume 8.7 Neutrophils (%) (Auto) 59.9 Lymphocytes (%) (Auto) 26.4 Monocytes (%) (Auto) 9.9 Eosinophils (%) (Auto) 3.4 Basophils (%) (Auto) 0.4 Neutrophils # (Auto) 3.5 Lymphocytes # (Auto) 1.5 Monocytes # (Auto) 0.6 Eosinophils # (Auto) 0.2 Basophils # (Auto) 0.0 CBC Comment AUTO DIFF Differential Comment AUTO DIFF CONFIRMED Vancomycin Level Trough 16.6 Date/Time Procedure Status Source Growth 08/07/16 17:27 Aerobic Blood Culture - Preliminary Resulted Blood Peripheral NO GROWTH IN 1 DAY 08/07/16 17:27 Anaerobic Blood Culture - Preliminary Resulted Blood Peripheral NO GROWTH IN 1 DAY 08/06/16 04:05 Aerobic Blood Culture - Final Complete Blood Peripheral Staphylococcus Aureus 08/06/16 04:05 Anaerobic Blood Culture - Final Complete Staphylococcus Aureus Result Diagram: 08/08/16 0351 08/07/16 0625 Imaging 08/06/2016 MRI cervical spine images reviewed by the undersigned. Agree with findings as noted below: Cervical Spine MRI 08/06/16 0000 Signed Impressions: Service Date/Time: Saturday, August 06, 2016 08:06 - CONCLUSION: 1. Deformity of C3 vertebral body with dorsal and elation at this level causing mild canal stenosis, unchanged. 2. Enhancement of the posterior soft tissues greatest from C1-C4 level. 3. Posterior disc osteophyte complex at C5-6 causing minimal canal stenosis. 4. Fusion at C4-5. 5. There has been improvement of soft tissue enhancement on current study. Yvan Sebastian MD Assessment and Plan Assessment and Plan Impression: 1. Cervical discitis-osteomyelitis with compression fracture of the C3 vertebral body, moderate kyphosis, moderate canal stenosis. No definite cervical myelopathy 2. Status post evacuation of cervical retropharyngeal-paravertebral abscess with persistent significant granulation tissue on most recent MRI 3. History of lumbar epidural-intradural abscess status post evacuation Recommendations: Findings were discussed with the patient. She is neurologically stable at present. No further significant progression of the cervical kyphosis or spinal cord compression on most recent MRI compared to the prior study. Continue cervical collar Continuing antibiotics per infectious disease May require surgical decompression and stabilization of the cervical spine on a delayed basis depending on clinical course and follow-up imaging studies. We mobilized out of bed with cervical collar Aravind Oliver MD August 08, 2016 18:24
[2016-08-08] MEDS: REMOVE OLD PATCH T-DERMAL SCH (19:55)
[2016-08-08] MEDS: SODIUM CHLORIDE 0.9% FLUSH 10 ML FLUSH IV FLUSH SCH (19:59)
[2016-08-08 20:00] VITALS: BP 98/69; PULSE 78; RESP 20; TEMP 97.1; O2SAT 100
[2016-08-09] VITALS: BP 100/56; PULSE 60; RESP 20; TEMP 96.4; O2SAT 100
[2016-08-09] MEDS: ceFAZolin 2 GM PREMIX 50 ML IV SCH ×3 (04:08→16:20)
[2016-08-09] MEDS: VANCOMYCIN INJ 1,250 MG in SODIUM CHLOR 0.9% 250 ML INJ 250 ML IV SCH ×2 (04:09→14:10)
[2016-08-09] MEDS: oxyCODONE/ACETAMINOPHEN 10 MG/325 MG TAB PO PRN ×4 (04:18→21:57)
[2016-08-09] MEDS: MORPHINE SULFATE 4 MG/ML INJ IV PUSH PRN ×3 (07:49→20:19)
[2016-08-09] MEDS: CETIRIZINE HCL 10 MG TAB PO SCH (07:49)
[2016-08-09] MEDS: RIFAMPIN 150 MG CAP PO SCH ×2 (07:50→20:18)
[2016-08-09] MEDS: NICOTINE 14 MG/24 HR PATCH T-DERMAL SCH (07:51)
[2016-08-09 08:00] VITALS: BP 102/61; PULSE 61; RESP 14; TEMP 96; O2SAT 98
[2016-08-09] MEDS: SODIUM CHLORIDE 0.9% FLUSH 10 ML FLUSH IV FLUSH SCH ×2 (09:00→20:18)
--- NOTE | 2016-08-09 10:04 | HHI.PR ---
Subjective Remarks The patient wanted her diet changed to a regular diet. She said that her pain control was improved. She had no acute complaints at this time. Objective Vitals Vital Signs Date Time Temp Pulse Resp B/P Pulse Ox O2 Delivery O2 Flow Rate FiO2 08/09/16 08:00 96.0 61 14 102/61 98 08/09/16 00:00 96.4 60 20 100/56 100 08/08/16 20:00 97.1 78 20 98/69 100 08/08/16 16:00 96.3 63 14 109/58 100 08/08/16 12:00 96.9 69 14 122/76 100 I/O 08/08/16 08/08/16 08/08/16 08/09/16 08/09/16 08/09/16 06:59 14:59 22:59 06:59 14:59 22:59 Intake Total 776 ml 800 ml 910 ml 240 ml Output Total 600 ml Balance 776 ml 200 ml 910 ml 240 ml Intake Oral 480 ml 800 ml 720 ml 240 ml IV Total 296 ml 190 ml Output Urine Total 600 ml # Voids 4 2 3 # Bowel Movements 0 0 1 Result Diagram: 08/08/16 0351 08/07/16 0625 Imaging Last Impressions Cervical Spine MRI 08/06/16 0000 Signed Impressions: Service Date/Time: Saturday, August 06, 2016 08:06 - CONCLUSION: 1. Deformity of C3 vertebral body with dorsal and elation at this level causing mild canal stenosis, unchanged. 2. Enhancement of the posterior soft tissues greatest from C1-C4 level. 3. Posterior disc osteophyte complex at C5-6 causing minimal canal stenosis. 4. Fusion at C4-5. 5. There has been improvement of soft tissue enhancement on current study. Yvan Sebastian MD Objective Remarks GENERAL: Well-nourished, well-developed patient. SKIN: Focused skin assessment warm/dry. Multiple lesions on upper and lower extremities. HEAD: Normocephalic. EYES: No scleral icterus. No injection or drainage. NECK: Supple, trachea midline. No JVD or lymphadenopathy. Patient has moderate tenderness on palpation of the paraspinal area cervical spine. No midline tenderness. No crepitus no deformity noted. No redness no induration of the soft tissue of the neck. CARDIOVASCULAR: Regular rate and rhythm. Grade 1 systolic murmur appreciated. RESPIRATORY: Breath sounds equal bilaterally. No accessory muscle use. GASTROINTESTINAL: Abdomen soft, non-tender, nondistended. MUSCULOSKELETAL: No cyanosis, or edema. BACK: Nontender without obvious deformity. No CVA tenderness. NEURO: Motor strength 5/5 in upper and lower extremities. PSYCH: Mood and affect appropriate. Medications and IVs Current Medications Medications (Trade) Dose Ordered Sig/Declan Route Start Time Stop Time Status Last Admin (NS Flush) 2 ml UNSCH PRN IV FLUSH 08/06/16 11:15 (NS Flush) 2 ml BID IV FLUSH 08/06/16 21:00 08/08/16 19:59 (Tylenol) 650 mg Q4H PRN PO 08/06/16 11:15 08/06/16 20:48 (Colace) 100 mg Q12H PO 08/06/16 11:15 08/08/16 19:54 (Senokot) 17.2 mg Q12H PRN PO 08/06/16 11:15 (Tylenol) 650 mg Q6H PRN PO 08/06/16 11:15 Naloxone HCl 0.4 mg 0.4 mg UNSCH PRN IV 08/06/16 11:15 (Vancomycin Inj/ NS 250 ml Inj) 262.5 ml @ 250 mls/hr Q12H IV 08/06/16 14:00 08/09/16 04:09 (Percocet 10-325 Mg) 1 tab Q4H PRN PO 08/06/16 15:00 08/09/16 04:18 (Habitrol 14 Mg Patch.24 Hr) 1 patch DAILY T-DERMAL 08/06/16 15:15 08/09/16 07:51 Miscellaneous Information 1 HS T-DERMAL 08/06/16 21:00 08/08/16 19:55 (Percocet 5-325 Mg) 1 tab Q4H PRN PO 08/06/16 15:54 Morphine Sulfate 2 mg 2 mg Q6HR PRN IV PUSH 08/07/16 09:30 08/09/16 07:49 (Ancef 2 Gm Premix) 50 ml @ 100 mls/hr Q8H IV 08/07/16 18:00 08/09/16 04:08 Rifampin 300 mg 300 mg Q12HR PO 08/07/16 21:00 08/09/16 07:50 (Vancomycin Consult Pharmacy) 0 ml @ 0 mls/hr UNSCH OTHER 08/07/16 17:30 (ZyrTEC) 10 mg DAILY PO 08/08/16 11:00 08/09/16 07:49 A/P Assessment and Plan C3 osteomyelitis The patient was supposed to be on IV vancomycin and by mouth rifampin but discontinued those medications weeks ago. MRI showed: Deformity of C3 vertebral body with dorsal elevation at this level causing mild canal stenosis, unchanged; Enhancement of the posterior soft tissues greatest from C1-C4 level; Posterior disc osteophyte complex at C5-6 causing minimal canal stenosis; Fusion at C4-5; There has been improvement of soft tissue enhancement on current study. ID consult appreciated. 07/01 blood cultures positive for staph aureus. Vegetation on tricuspid valve noted on echo. Normal EF. Neurosurgery consult appreciated. - Currently on cervical collar, patient refused Halo in the past. - continue vancomycin, cefazolin and rifampin per ID. - continue with pain control. Pain management follow-up as an outpt. - follow up with case repairer in regards to placement for completion of treatment. The pt states she has nowhere to be discharged to. Hypokalemia Likely s/t decreased po intake. - replete and monitor. Resolved. Thalassemia Hemoglobin is similar to baseline. - Continue to monitor and transfuse as needed. Nicotine abuse The patient smokes about 10 cigarettes daily. - Cessation instruction. - Nicotine patch. Allergies The pt complains of chronic allergies. - Zyrtec ordered. PPx: SCDs. Discharge Planning Awaiting placement. Reginald Houser DO August 09, 2016 10:04
[2016-08-09] MEDS: DOCUSATE SODIUM 100 MG CAP PO SCH ×2 (11:06→20:18)
[2016-08-09 12:00] VITALS: BP 105/55; PULSE 82; RESP 14; TEMP 97.2; O2SAT 98
[2016-08-09 16:00] VITALS: BP 103/58; PULSE 74; RESP 14; TEMP 97.8; O2SAT 99
[2016-08-09 20:00] VITALS: BP 103/59; PULSE 79; RESP 20; TEMP 97.7; O2SAT 99
[2016-08-09] MEDS: REMOVE OLD PATCH T-DERMAL SCH (21:00)
[2016-08-10] VITALS: BP 110/67; PULSE 67; RESP 20; TEMP 96.7; O2SAT 100
[2016-08-10] MEDS: oxyCODONE/ACETAMINOPHEN 10 MG/325 MG TAB PO PRN ×4 (01:05→22:35)
[2016-08-10] MEDS: ceFAZolin 2 GM PREMIX 50 ML IV SCH ×3 (02:19→17:22)
[2016-08-10] MEDS: VANCOMYCIN INJ 1,250 MG in SODIUM CHLOR 0.9% 250 ML INJ 250 ML IV SCH ×2 (02:19→15:23)
[2016-08-10] MEDS: MORPHINE SULFATE 4 MG/ML INJ IV PUSH PRN ×3 (02:37→17:22)
[2016-08-10 08:00] VITALS: BP 110/57; PULSE 65; RESP 17; TEMP 96.8; O2SAT 98
--- NOTE | 2016-08-10 10:07 | HHI.PR ---
Subjective Remarks The pt was resting comfortably. She complained of a nagging pain in her neck. She has been having bowel movements. Has been ambulating. Had questions about her disposition. Objective Vitals Vital Signs Date Time Temp Pulse Resp B/P Pulse Ox O2 Delivery O2 Flow Rate FiO2 08/10/16 03:36 16 08/10/16 02:17 16 08/10/16 00:00 96.7 67 20 110/67 100 08/09/16 20:00 97.7 79 20 103/59 99 08/09/16 16:00 97.8 74 14 103/58 99 08/09/16 12:00 97.2 82 14 105/55 98 I/O 08/09/16 08/09/16 08/09/16 08/10/16 08/10/16 08/10/16 07:00 15:00 23:00 07:00 15:00 23:00 Intake Total 240 ml 1320 ml 240 ml 300 ml Output Total 1100 ml Balance 240 ml 220 ml 240 ml 300 ml Intake Oral 240 ml 1320 ml 240 ml 0 ml IV Total 0 ml 300 ml Output Urine Total 1100 ml # Voids 3 1 2 # Bowel Movements 1 Result Diagram: 08/08/16 0351 08/10/16 0427 Imaging Last Impressions Cervical Spine MRI 08/06/16 0000 Signed Impressions: Service Date/Time: Saturday, August 06, 2016 08:06 - CONCLUSION: 1. Deformity of C3 vertebral body with dorsal and elation at this level causing mild canal stenosis, unchanged. 2. Enhancement of the posterior soft tissues greatest from C1-C4 level. 3. Posterior disc osteophyte complex at C5-6 causing minimal canal stenosis. 4. Fusion at C4-5. 5. There has been improvement of soft tissue enhancement on current study. Yvan Sebastian MD Objective Remarks GENERAL: Well-nourished, well-developed patient. SKIN: Focused skin assessment warm/dry. Multiple lesions on upper and lower extremities. HEAD: Normocephalic. EYES: No scleral icterus. No injection or drainage. NECK: Supple, trachea midline. No JVD or lymphadenopathy. Patient has moderate tenderness on palpation of the paraspinal area cervical spine. No midline tenderness. No crepitus no deformity noted. No redness no induration of the soft tissue of the neck. CARDIOVASCULAR: Regular rate and rhythm. Grade 1 systolic murmur appreciated. RESPIRATORY: Breath sounds equal bilaterally. No accessory muscle use. GASTROINTESTINAL: Abdomen soft, non-tender, nondistended. MUSCULOSKELETAL: No cyanosis, or edema. BACK: Nontender without obvious deformity. No CVA tenderness. NEURO: Motor strength 5/5 in upper and lower extremities. PSYCH: Mood and affect appropriate. Medications and IVs Current Medications Medications (Trade) Dose Ordered Sig/Declan Route Start Time Stop Time Status Last Admin (NS Flush) 2 ml UNSCH PRN IV FLUSH 08/06/16 11:15 (NS Flush) 2 ml BID IV FLUSH 08/06/16 21:00 08/09/16 20:18 (Tylenol) 650 mg Q4H PRN PO 08/06/16 11:15 08/06/16 20:48 (Colace) 100 mg Q12H PO 08/06/16 11:15 08/09/16 20:18 (Senokot) 17.2 mg Q12H PRN PO 08/06/16 11:15 (Tylenol) 650 mg Q6H PRN PO 08/06/16 11:15 Naloxone HCl 0.4 mg 0.4 mg UNSCH PRN IV 08/06/16 11:15 (Vancomycin Inj/ NS 250 ml Inj) 262.5 ml @ 250 mls/hr Q12H IV 08/06/16 14:00 08/10/16 02:19 (Percocet 10-325 Mg) 1 tab Q4H PRN PO 08/06/16 15:00 08/10/16 06:42 (Habitrol 14 Mg Patch.24 Hr) 1 patch DAILY T-DERMAL 08/06/16 15:15 08/09/16 07:51 Miscellaneous Information 1 HS T-DERMAL 08/06/16 21:00 08/09/16 21:00 (Percocet 5-325 Mg) 1 tab Q4H PRN PO 08/06/16 15:54 Morphine Sulfate 2 mg 2 mg Q6HR PRN IV PUSH 08/07/16 09:30 08/10/16 02:37 (Ancef 2 Gm Premix) 50 ml @ 100 mls/hr Q8H IV 08/07/16 18:00 08/10/16 02:19 Rifampin 300 mg 300 mg Q12HR PO 08/07/16 21:00 08/09/16 20:18 (Vancomycin Consult Pharmacy) 0 ml @ 0 mls/hr UNSCH OTHER 08/07/16 17:30 (ZyrTEC) 10 mg DAILY PO 08/08/16 11:00 08/09/16 07:49 A/P Assessment and Plan C3 osteomyelitis The patient was supposed to be on IV vancomycin and by mouth rifampin but discontinued those medications weeks ago. MRI showed: Deformity of C3 vertebral body with dorsal elevation at this level causing mild canal stenosis, unchanged; Enhancement of the posterior soft tissues greatest from C1-C4 level; Posterior disc osteophyte complex at C5-6 causing minimal canal stenosis; Fusion at C4-5; There has been improvement of soft tissue enhancement on current study. ID consult appreciated. 07/01 blood cultures positive for staph aureus. Vegetation on tricuspid valve noted on echo. Normal EF. Neurosurgery consult appreciated. - Currently on cervical collar, patient refused Halo in the past. - continue vancomycin, cefazolin and rifampin per ID. - continue with pain control. Standing ibuprofen added. Pain management follow- up as an outpt. - follow up with geriatric case manager in regards to placement for completion of treatment. The pt states she has nowhere to be discharged to. Possibly SNF. - follow repeat blood cultures. NGTD. Hypokalemia Likely s/t decreased po intake. - replete and monitor. Resolved. Thalassemia Hemoglobin is similar to baseline. - Continue to monitor and transfuse as needed. Nicotine abuse The patient smokes about 10 cigarettes daily. - Cessation instruction. - Nicotine patch. Allergies The pt complains of chronic allergies. - Zyrtec ordered. PPx: SCDs. Discharge Planning Awaiting placement. Reginald Houser DO August 10, 2016 10:07
[2016-08-10] MEDS: IBUPROFEN 800 MG TAB PO SCH ×2 (10:39→17:22)
[2016-08-10] MEDS: DOCUSATE SODIUM 100 MG CAP PO SCH ×2 (10:39→20:46)
[2016-08-10] MEDS: NICOTINE 14 MG/24 HR PATCH T-DERMAL SCH (10:40)
[2016-08-10] MEDS: RIFAMPIN 150 MG CAP PO SCH ×2 (10:40→20:46)
[2016-08-10 12:00] VITALS: BP 107/54; PULSE 63; RESP 20; TEMP 97.6; O2SAT 98
[2016-08-10] MEDS: CETIRIZINE HCL 10 MG TAB PO SCH (15:21)
[2016-08-10] MEDS: SODIUM CHLORIDE 0.9% FLUSH 10 ML FLUSH IV FLUSH SCH ×2 (15:22→20:44)
[2016-08-10 16:00] VITALS: BP 119/62; PULSE 98; RESP 18; TEMP 97.2; O2SAT 99
[2016-08-10 20:00] VITALS: BP 113/62; PULSE 80; RESP 18; TEMP 97; O2SAT 99
[2016-08-10] MEDS: REMOVE OLD PATCH T-DERMAL SCH (20:45)
[2016-08-11] VITALS: BP 118/66; PULSE 78; RESP 20; TEMP 96.8; O2SAT 100
[2016-08-11] MEDS: MORPHINE SULFATE 4 MG/ML INJ IV PUSH PRN ×4 (00:11→22:33)
[2016-08-11] MEDS: ceFAZolin 2 GM PREMIX 50 ML IV SCH ×3 (01:43→17:29)
[2016-08-11] MEDS: VANCOMYCIN INJ 1,250 MG in SODIUM CHLOR 0.9% 250 ML INJ 250 ML IV SCH ×2 (02:36→14:06)
[2016-08-11] MEDS: oxyCODONE/ACETAMINOPHEN 10 MG/325 MG TAB PO PRN ×5 (02:36→21:08)
[2016-08-11] MEDS: IBUPROFEN 800 MG TAB PO SCH ×3 (02:36→17:29)
[2016-08-11 08:00] VITALS: BP 91/50; PULSE 67; RESP 21; TEMP 96.7; O2SAT 98
[2016-08-11] MEDS: CETIRIZINE HCL 10 MG TAB PO SCH (08:00)
[2016-08-11] MEDS: REMOVE OLD PATCH T-DERMAL SCH (08:01)
[2016-08-11] MEDS: NICOTINE 14 MG/24 HR PATCH T-DERMAL SCH (08:01)
[2016-08-11] MEDS: RIFAMPIN 150 MG CAP PO SCH ×2 (08:01→19:41)
[2016-08-11] MEDS: SODIUM CHLORIDE 0.9% FLUSH 10 ML FLUSH IV FLUSH SCH ×2 (08:02→19:41)
[2016-08-11] MEDS: DOCUSATE SODIUM 100 MG CAP PO SCH ×2 (11:09→19:41)
[2016-08-11] MEDS ORDERED: DOCU1CAP39 PO (11:11)
[2016-08-11] MEDS ORDERED: VENL1CAP38 PO (11:11)
[2016-08-11] MEDS ORDERED: NICO14DI T-DERMAL (11:11)
[2016-08-11] MEDS ORDERED: OXYC1TAB63 PO (11:11)
[2016-08-11] MEDS ORDERED: CETI10 PO (11:11)
--- NOTE | 2016-08-11 11:15 | HHI.PR ---
Subjective Remarks The patient was complaining of a headache. She also endorsed feeling depressed because of her situation. She said she is to do well on Effexor. She said she would be happy to go to [facility]. She had no other acute complaints. Discussed with nursing. Objective Vitals Vital Signs Date Time Temp Pulse Resp B/P Pulse Ox O2 Delivery O2 Flow Rate FiO2 08/11/16 08:00 96.7 67 21 91/50 98 08/11/16 00:00 96.8 78 20 118/66 100 08/10/16 20:00 97.0 80 18 113/62 99 08/10/16 16:00 97.2 98 18 119/62 99 08/10/16 12:00 97.6 63 20 107/54 98 I/O 08/10/16 08/10/16 08/10/16 08/11/16 08/11/16 08/11/16 07:00 15:00 23:00 07:00 15:00 23:00 Intake Total 300 ml 720 ml 480 ml 1060 ml Balance 300 ml 720 ml 480 ml 1060 ml Intake Oral 0 ml 720 ml 480 ml 220 ml IV Total 300 ml 840 ml # Voids 2 3 3 2 # Bowel Movements 2 0 0 Result Diagram: 08/08/16 0351 08/10/16 0427 Imaging Last Impressions Cervical Spine MRI 08/06/16 0000 Signed Impressions: Service Date/Time: Saturday, August 06, 2016 08:06 - CONCLUSION: 1. Deformity of C3 vertebral body with dorsal and elation at this level causing mild canal stenosis, unchanged. 2. Enhancement of the posterior soft tissues greatest from C1-C4 level. 3. Posterior disc osteophyte complex at C5-6 causing minimal canal stenosis. 4. Fusion at C4-5. 5. There has been improvement of soft tissue enhancement on current study. Yvan Sebastian MD Objective Remarks GENERAL: Well-nourished, well-developed patient. SKIN: Focused skin assessment warm/dry. Multiple lesions on upper and lower extremities. HEAD: Normocephalic. EYES: No scleral icterus. No injection or drainage. NECK: Supple, trachea midline. No JVD or lymphadenopathy. Patient has moderate tenderness on palpation of the paraspinal area cervical spine. No midline tenderness. No crepitus no deformity noted. No redness no induration of the soft tissue of the neck. CARDIOVASCULAR: Regular rate and rhythm. Grade 1 systolic murmur appreciated. RESPIRATORY: Breath sounds equal bilaterally. No accessory muscle use. GASTROINTESTINAL: Abdomen soft, non-tender, nondistended. MUSCULOSKELETAL: No cyanosis, or edema. BACK: Nontender without obvious deformity. No CVA tenderness. NEURO: Motor strength 5/5 in upper and lower extremities. PSYCH: Mood and affect appropriate. Medications and IVs Current Medications Medications (Trade) Dose Ordered Sig/Declan Route Start Time Stop Time Status Last Admin (NS Flush) 2 ml UNSCH PRN IV FLUSH 08/06/16 11:15 (NS Flush) 2 ml BID IV FLUSH 08/06/16 21:00 08/11/16 08:02 (Tylenol) 650 mg Q4H PRN PO 08/06/16 11:15 08/06/16 20:48 (Colace) 100 mg Q12H PO 08/06/16 11:15 08/11/16 11:09 (Senokot) 17.2 mg Q12H PRN PO 08/06/16 11:15 (Tylenol) 650 mg Q6H PRN PO 08/06/16 11:15 Naloxone HCl 0.4 mg 0.4 mg UNSCH PRN IV 08/06/16 11:15 (Vancomycin Inj/ NS 250 ml Inj) 262.5 ml @ 250 mls/hr Q12H IV 08/06/16 14:00 08/11/16 02:36 (Percocet 10-325 Mg) 1 tab Q4H PRN PO 08/06/16 15:00 08/11/16 11:09 (Habitrol 14 Mg Patch.24 Hr) 1 patch DAILY T-DERMAL 08/06/16 15:15 08/11/16 08:01 Miscellaneous Information 1 HS T-DERMAL 08/06/16 21:00 08/10/16 20:45 (Percocet 5-325 Mg) 1 tab Q4H PRN PO 08/06/16 15:54 Morphine Sulfate 2 mg 2 mg Q6HR PRN IV PUSH 08/07/16 09:30 08/11/16 08:02 (Ancef 2 Gm Premix) 50 ml @ 100 mls/hr Q8H IV 08/07/16 18:00 08/11/16 08:01 Rifampin 300 mg 300 mg Q12HR PO 08/07/16 21:00 08/11/16 08:01 (Vancomycin Consult Pharmacy) 0 ml @ 0 mls/hr UNSCH OTHER 08/07/16 17:30 (ZyrTEC) 10 mg DAILY PO 08/08/16 11:00 08/11/16 08:00 (Motrin) 800 mg Q8H PO 08/10/16 10:00 08/13/16 10:01 08/11/16 08:01 (Effexor Xr) 37.5 mg DAILY PO 08/11/16 11:15 UNV A/P Assessment and Plan C3 osteomyelitis The patient was supposed to be on IV vancomycin and by mouth rifampin but discontinued those medications weeks ago. MRI showed: Deformity of C3 vertebral body with dorsal elevation at this level causing mild canal stenosis, unchanged; Enhancement of the posterior soft tissues greatest from C1-C4 level; Posterior disc osteophyte complex at C5-6 causing minimal canal stenosis; Fusion at C4-5; There has been improvement of soft tissue enhancement on current study. ID consult appreciated. 07/01 blood cultures positive for staph aureus. Vegetation on tricuspid valve noted on echo. Normal EF. Neurosurgery consult appreciated. - Currently on cervical collar, patient refused Halo in the past. - continue vancomycin, cefazolin and rifampin per ID. - continue with pain control. Standing ibuprofen added. Pain management follow- up as an outpt. - follow up with high risk case manager in regards to placement for completion of treatment. The pt states she has nowhere to be discharged to. Likely SNF. 3008 signed. - follow repeat blood cultures. NGTD. Hypokalemia Likely s/t decreased po intake. - replete and monitor. Resolved. Thalassemia Hemoglobin is similar to baseline. - Continue to monitor and transfuse as needed. Nicotine abuse The patient smokes about 10 cigarettes daily. - Cessation instruction. - Nicotine patch. Allergies The pt complains of chronic allergies. - Zyrtec ordered. Depression Acute on chronic, situational. - the pt did well on Effexor in the past. Start Effexor XR 37.5 mg daily and follow up as an outpt. PPx: SCDs. Discharge Planning Awaiting placement in SNF. Reginald Houser DO August 11, 2016 11:15
--- NOTE | 2016-08-11 11:40 | HHI.NSPN ---
(Ino Marte) Note Status Status: Progress Note (Ino Marte) Interval History Interval History 08/08: 45-year-old female previously admitted to [facility] for large retropharyngeal-paravertebral abscess evacuated surgically. Subsequent diagnosis of lumbar epidural and intradural abscess also surgically evacuated. History of IV drug abuse with MRSA endocarditis. Patient previously readmitted after having developed C3 compression fracture with significant kyphosis. She was started on vancomycin and rifampin. She refused surgical intervention or halo placement despite significant instability and spinal canal compromise. She was discharged in a cervical collar. She failed to come for her most recent follow-up neurosurgery appointment, and could not be contacted. She now presents back to the hospital with persistent low-grade fever and progressive neck pain. No complaint of significant pain and weakness or numbness in the extremities. 08/11: The patient indicates by hand motion she is doing "so-so" this morning when seen. She states that she is having neck pain. She denies any other complaints. She did endorse some weakness to the right side when asked after being examined. (Ino Marte) Labs, Micro, & Vital Signs Results Staph aureus in initial blood cultures on x2. Constitutional Vital Signs Date Time Temp Pulse Resp B/P Pulse Ox O2 Delivery O2 Flow Rate FiO2 08/11/16 08:00 96.7 67 21 91/50 98 08/11/16 00:00 96.8 78 20 118/66 100 08/10/16 20:00 97.0 80 18 113/62 99 08/10/16 16:00 97.2 98 18 119/62 99 08/10/16 12:00 97.6 63 20 107/54 98 08/11/16 07:00 Intake Total 2260 ml Balance 2260 ml (Ino Marte) Review of Systems/Exam ROS CONSTITUTIONAL: Patient denies any fever or chills. NECK: Patient complains of neck pain. RESPIRATORY: Patient denies any shortness of breath or productive cough. CARDIAC: Patient denies any chest pain, palpitations or irregular heart beat. GASTROINTESTINAL: Patient denies any abdominal pain, nausea, vomiting or bowel incontinence. GENITOURINARY: Patient denies any bladder incontinence. MUSCULOSKELETAL: Patient denies any arm pain or weakness although after being examined she did endorse some weakness on the right side when asked again. NEUROLOGICAL: Patient denies any headache, dizziness, numbness or tingling. Exam GENERAL: NAD, affect slightly flat, she does smile during the conversation. SKIN: Numerous erythematous ulcerative type skin lesions throughout the upper and lower extremities. HEAD: Atraumatic. Normocephalic. NECK: Soft cervical collar in place. Trachea midline. No JVD or lymphadenopathy. Supple, nontender, no meningeal signs. RESPIRATORY: CTAB w/o W/R/R, equal excursion, non-laboured, on RA. CARDIOVASCULAR: S1S2 w/RRR w/o M/G/R, pedal & radial pulses 2+ bilaterally, cap refill < 2 sec, no pedal edema. GASTROINTESTINAL: Abdomen soft, nontender, no palpable masses or organomegaly, positive bowel sounds. MUSCULOSKELETAL: Numerous skin lesions as noted above with erythema, no deformity or clubbing. NEUROLOGIC: Awake and alert Conversant and appropriate Speech clear Follow simple commands well Sensation intact light touch all extremities Motor strength 5/5 on left & 4 to 4+/5 on right. (Ino Marte) Medications Current Medications Current Medications Medications (Trade) Dose Ordered Sig/Declan Route Start Time Stop Time Status Last Admin (NS Flush) 2 ml UNSCH PRN IV FLUSH 08/06/16 11:15 (NS Flush) 2 ml BID IV FLUSH 08/06/16 21:00 08/11/16 08:02 (Tylenol) 650 mg Q4H PRN PO 08/06/16 11:15 08/06/16 20:48 (Colace) 100 mg Q12H PO 08/06/16 11:15 08/11/16 11:09 (Senokot) 17.2 mg Q12H PRN PO 08/06/16 11:15 (Tylenol) 650 mg Q6H PRN PO 08/06/16 11:15 Naloxone HCl 0.4 mg 0.4 mg UNSCH PRN IV 08/06/16 11:15 (Vancomycin Inj/ NS 250 ml Inj) 262.5 ml @ 250 mls/hr Q12H IV 08/06/16 14:00 08/11/16 02:36 (Percocet 10-325 Mg) 1 tab Q4H PRN PO 08/06/16 15:00 08/11/16 11:09 (Habitrol 14 Mg Patch.24 Hr) 1 patch DAILY T-DERMAL 08/06/16 15:15 08/11/16 08:01 Miscellaneous Information 1 HS T-DERMAL 08/06/16 21:00 08/10/16 20:45 (Percocet 5-325 Mg) 1 tab Q4H PRN PO 08/06/16 15:54 Morphine Sulfate 2 mg 2 mg Q6HR PRN IV PUSH 08/07/16 09:30 08/11/16 08:02 (Ancef 2 Gm Premix) 50 ml @ 100 mls/hr Q8H IV 08/07/16 18:00 08/11/16 08:01 Rifampin 300 mg 300 mg Q12HR PO 08/07/16 21:00 08/11/16 08:01 (Vancomycin Consult Pharmacy) 0 ml @ 0 mls/hr UNSCH OTHER 08/07/16 17:30 (ZyrTEC) 10 mg DAILY PO 08/08/16 11:00 08/11/16 08:00 (Motrin) 800 mg Q8H PO 08/10/16 10:00 08/13/16 10:01 08/11/16 08:01 (Effexor Xr) 37.5 mg DAILY PO 08/11/16 11:15 UNV (Ino Marte) Medical Decision Making MDM Remarks Impression: 1. Cervical discitis-osteomyelitis with compression fracture of the C3 vertebral body, moderate kyphosis, moderate canal stenosis. No definite cervical myelopathy 2. Status post evacuation of cervical retropharyngeal-paravertebral abscess with persistent significant granulation tissue on most recent MRI 3. History of lumbar epidural-intradural abscess status post evacuation She is neurologically stable at present. No further significant progression of the cervical kyphosis or spinal cord compression on most recent MRI compared to the prior study per Dr Oliver. (Ino Marte) Plan Plan Remarks Plan of care discussed with the patient. Continue cervical collar Continue antibiotics per infectious disease May require surgical decompression and stabilization of the cervical spine on a delayed basis depending on clinical course and follow-up imaging studies. Mobilise out of bed with cervical collar (Ino Marte) Attending Statement I have personally seen and examined the patient on 08/11/16. Pertinent documentation and study results have been reviewed by the undersigned. I have personally developed the treatment plan and performed medical decision making. Agree with findings, exam, and treatment plan as noted above. Discussed with infectious disease today. Continue close neurologic checks and observation. No definite cervical myelopathic findings present exam. 12 weeks of IV antibiotics anticipated per infectious disease with long-term oral antibiotics to follow. (Aravind Oliver MD) Ino Marte August 11, 2016 11:40 Aravind Oliver MD August 12, 2016 00:07
[2016-08-11 12:00] VITALS: BP 112/56; PULSE 83; RESP 24; TEMP 95.9; O2SAT 99
[2016-08-11] MEDS: VENLAFAXINE HCL XR 37.5 MG CAP PO SCH (12:38)
--- NOTE | 2016-08-11 13:05 | HHI.IDPN ---
Subjective Subjective Remarks pt is feeling good co some neck pain seen by Dr Oliver - no indications for sx at this point Antibiotics cefazoli vanco rifampin Allergies: Coded Allergies: Penicillin (Verified Allergy, Intermediate, Rash, 08/06/16) Has taken Keflex without any problem *MDRO Multi-Drug Resistant Organism (Verified Adverse Reaction, Unknown, ) MRSA (blood) - 05/14/16, 05/16/16, 05/18/16; (sputum) - 05/17/16 MRSA (back abscess)-05/28/16 Uncoded Allergies: chemical allergy (Allergy, Severe, anaphalactic, 09/27/12) Objective . Vital Signs Date Time Temp Pulse Resp B/P Pulse Ox O2 Delivery O2 Flow Rate FiO2 08/11/16 08:00 96.7 67 21 91/50 98 08/11/16 00:00 96.8 78 20 118/66 100 08/10/16 20:00 97.0 80 18 113/62 99 08/10/16 16:00 97.2 98 18 119/62 99 08/10/16 08/10/16 08/11/16 15:00 23:00 07:00 Intake Total 720 ml 480 ml 1060 ml Balance 720 ml 480 ml 1060 ml Intake Oral 720 ml 480 ml 220 ml IV Total 840 ml # Voids 3 3 2 # Bowel Movements 2 0 0 . Laboratory Tests Test 08/10/16 04:27 Creatinine 0.59 MG/DL Estimat Glomerular Filtration 111 ML/MIN Rate Imaging Last Impressions Cervical Spine MRI 08/06/16 0000 Signed Impressions: Service Date/Time: Saturday, August 06, 2016 08:06 - CONCLUSION: 1. Deformity of C3 vertebral body with dorsal and elation at this level causing mild canal stenosis, unchanged. 2. Enhancement of the posterior soft tissues greatest from C1-C4 level. 3. Posterior disc osteophyte complex at C5-6 causing minimal canal stenosis. 4. Fusion at C4-5. 5. There has been improvement of soft tissue enhancement on current study. Yvan Sebastian MD Physical Exam CONSTITUTIONAL/GENERAL: This is an adequately nourished patient, in no apparent distress. TUBES/LINES/DRAINS: PICC removed SKIN: No jaundice, rashes, or lesions. Skin temperature appropriate. Not diaphoretic. EYES: Pupils equal and round and reactive. Extraocular motions intact. No scleral icterus. No injection or drainage. Fundi not examined. NECK: C collar in place CARDIOVASCULAR: Regular rate and rhythm 2/6 systolic murmur, no gallops, or rubs. No JVD. Peripheral pulses symmetric. RESPIRATORY/CHEST: Symmetric, unlabored respirations. Clear to auscultation. Breath sounds equal bilaterally. No wheezes, rales, or rhonchi. GASTROINTESTINAL: Abdomen soft, non-tender, nondistended. No hepato-splenomegaly , or palpable masses. No guarding. Bowel sounds present. GENITOURINARY: Without palpable bladder distension. MUSCULOSKELETAL: Extremities without clubbing, cyanosis, or edema. BACK: healed incision NEUROLOGICAL: Awake and alert. Motor and sensory grossly within normal limits. Follows commands. Cognitively sharp. Moves all extremities. PSYCHIATRIC: No obvious anxiety/depression. no apparent hallucinations or other psychotic thought process. Assessment & Plan Remarks Assessment and Plan Left L1-2 and left L5-S1 semi-laminectomy, evacuation of epidural and intradural abscess and evacuation left L5 level lumbar paraspinous muscle abscess C3 osteomyelitis with osteolysis Recent TV endocarditis, MRSA, IVDU related Non compliance MSSA bacteremia - 7x 8 mm tricuspid vegetaion - suspect another episode of TV endocarditis Pt with PCN allergy but records indicate cephalosporine use uneventfully earlier this year - cont vancomycin + rifampin x 12 weeks - cefazolin 2 gm q 8 hrs x 6 wks pt is ready to be discharged from [facility] pending resolution of social issues (home situation, 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
--- NOTE | 2016-08-11 15:56 | HHI.FF ---
Infusion Therapy Location of Infusion Therapy: [facility] Infusion Therapy Order Patient Information Patient Weight 59.3 kg Diagnosis: Diagnosis tricuspid endocarditis MSSA C spine osteo, diskitis MRSA Coded Allergies: Penicillin (Verified Allergy, Intermediate, Rash, 08/06/16) Has taken Keflex without any problem *MDRO Multi-Drug Resistant Organism (Verified Adverse Reaction, Unknown, ) MRSA (blood) - 05/14/16, 05/16/16, 05/18/16; (sputum) - 05/17/16 MRSA (back abscess)-05/28/16 Uncoded Allergies: chemical allergy (Allergy, Severe, anaphalactic, 09/27/12) Administer Medication Cefazolin 2 grams IV q 6 hours Start Treatment: August 12, 2016 Stop Treatment: Sep 17, 2016 Administer Medication Vancomycin q 12 hours 1250 mg Start Treatment: August 12, 2016 Stop Treatment: Oct 29, 2016 Additional Information Venous access: PICC Line Additional Instructions [x] Peripheral flush and dressing changes per protocol [x] Implanted port and central sewer line repairer: * Implanted port: 10 ml Normal Saline followed by 5 ml Heparin 100 units/ml Heparin flush after each use and monthly to maintain. [] May leave port accessed during therapy. [] May leave peripheral site accessed for duration of therapy. [x] If patient has SOB or respiratory distress, check oxygen saturation. If less than 90% or clinical signs of respiratory distress, administer oxygen at 2 L/min. via nasal cannula and notify physician. [x] Anaphylaxis/Reaction orders: * Stop infusion. * Keep IV line open with saline flush. * Notify physician. * Monitor vital signs every 15 minutes until symptoms resolve. * Check Oxygen saturation; Oxygen at 2 L/min. via nasal cannula if less than 90% or clinical signs of respiratory distress. * Administer diphenhydramine (Benadryl) 25 mg IV STAT, (unless patient has received as pre-med). May repeat once, if necessary. * Solu-Cortef 250 mg IVP over 30-60 seconds, use 100 mg vials for each dissolution. * Epinephrine (1mg/1 ml) 0.3 mg subcutaneously or IVP now with any signs of respiratory distress. * Check with physician for new additional pre-med orders if patient is re- challenged or re-treated. [x] May remove PICC line when treatment complete, after confirming with Physician. [x] If the patient is admitted to the hospital, the ED, or transferred via [facility] , complete transfer form including medication reconciliation order sheet. Laboratory Tests Weekly Labs: CBC w/diff, Creatinine, CRP, SED Rate, Vancomycin Trough Dina Carlos MD August 11, 2016 15:56
[2016-08-11 16:00] VITALS: BP 103/56; PULSE 71; RESP 24; TEMP 97; O2SAT 98
[2016-08-11] MEDS ORDERED: CEFA2SOL IV (16:00)
[2016-08-11] MEDS ORDERED: SOLU250I IV PUSH (16:00)
[2016-08-11] MEDS ORDERED: EPIN1INJ21 IV PUSH (16:00)
[2016-08-11] MEDS ORDERED: VANC10IN IV (16:00)
[2016-08-11] MEDS ORDERED: EPIN1INJ21 SQ (16:00)
[2016-08-11] MEDS ORDERED: RIFA150C2 PO (18:12)
--- NOTE | 2016-08-11 18:13 | HHI.DCPOC ---
Discharge Care Plan Diagnosis: (1) Osteomyelitis of cervical spine (2) IV drug abuse (3) Infectious endocarditis (4) Bacteremia Goals to Promote Your Health * To prevent worsening of your condition and complications * To maintain your health at the optimal level Directions to Meet Your Goals Take your medications as prescribed Follow your dietary instruction Follow activity as directed Keep your appointments as scheduled Take your immunizations and boosters as scheduled If your symptoms worsen call your PCP, if no PCP go to Urgent Care Center or Emergency Room Smoking is Dangerous to Your Health. Avoid second hand smoke Call the 24-hour hour crisis hotline for domestic abuse at Reginald Houser DO August 11, 2016 18:13
--- NOTE | 2016-08-11 18:30 | HHI.DS ---
Discharge Summary Admission Date August 06, 2016 at 10:38 Discharge Date: August 12, 2016 Admitting Diagnosis cervical osteomyelitis/sepsis (1) Osteomyelitis of cervical spine ICD Code: M46.22 Diagnosis: Principal (2) Bacteremia ICD Code: R78.81 Diagnosis: Principal (3) Infectious endocarditis ICD Code: I33.0 Diagnosis: Principal Procedures None. Brief History - From Admission The patient is a 45-year-old female with a history of drug use associated with multiple abscesses and cervical osteomyelitis who is presenting to the hospital with increasing neck pain and low-grade fevers. The patient was discharged from the hospital last month on IV vancomycin and by mouth rifampin. She also had home health care at the time. She was told that her vancomycin trough was too high and that she should go to the emergency department to get checked out. The patient did not do that and her vancomycin was discontinued. She has not had any vancomycin for the past 2-3 weeks. She said she was supposed to see a new infectious disease doctor today. She started developing increasing neck pain. The pain would radiate to both of her shoulders. She has a cervical collar in place. She has been able to ambulate until yesterday when she felt significantly weak. She said she couldn't move and was confined to the bed. She has been taking Lortab for her pain and was due to see a pain specialist on the . CBC/BMP: 08/08/16 0351 08/10/16 0427 Imaging Last Impressions Cervical Spine MRI 08/06/16 0000 Signed Impressions: Service Date/Time: Saturday, August 06, 2016 08:06 - CONCLUSION: 1. Deformity of C3 vertebral body with dorsal and elation at this level causing mild canal stenosis, unchanged. 2. Enhancement of the posterior soft tissues greatest from C1-C4 level. 3. Posterior disc osteophyte complex at C5-6 causing minimal canal stenosis. 4. Fusion at C4-5. 5. There has been improvement of soft tissue enhancement on current study. Yvan Sebastian MD PE at Discharge GENERAL: Well-nourished, well-developed patient. SKIN: Focused skin assessment warm/dry. Multiple lesions on upper and lower extremities. HEAD: Normocephalic. EYES: No scleral icterus. No injection or drainage. NECK: Supple, trachea midline. No JVD or lymphadenopathy. Patient has moderate tenderness on palpation of the paraspinal area cervical spine. No midline tenderness. No crepitus no deformity noted. No redness no induration of the soft tissue of the neck. CARDIOVASCULAR: Regular rate and rhythm. Grade 1 systolic murmur appreciated. RESPIRATORY: Breath sounds equal bilaterally. No accessory muscle use. GASTROINTESTINAL: Abdomen soft, non-tender, nondistended. MUSCULOSKELETAL: No cyanosis, or edema. BACK: Nontender without obvious deformity. No CVA tenderness. NEURO: Motor strength 5/5 in upper and lower extremities. PSYCH: Mood and affect appropriate. Pt update on day of discharge The pt said she was feeling well. She said she has a hard time sleeping at night s/t neck pain. Tolerating a diet. Has been ambulating. Did well with the Effexor. Discussed with nursing. Hospital Course C3 osteomyelitis/ Tricuspid endocarditis/ Bacteremia The patient was supposed to be on IV vancomycin and by mouth rifampin but discontinued those medications weeks ago. MRI showed: Deformity of C3 vertebral body with dorsal elevation at this level causing mild canal stenosis, unchanged; Enhancement of the posterior soft tissues greatest from C1-C4 level; Posterior disc osteophyte complex at C5-6 causing minimal canal stenosis; Fusion at C4-5; There has been improvement of soft tissue enhancement on current study. ID was consulted. 4/4 blood cultures positive for staph aureus. Vegetation on tricuspid valve noted on echo. Normal EF. Neurosurgery was consulted. The pt was continued on a cervical collar. We continued vancomycin, cefazolin and rifampin per ID. The pt received pain control. She will have pain management follow-up as an outpt. She was evaluated by physical therapy. She will be discharged to a SNF. She will follow up with neurosurgery as an outpt. Nicotine abuse The patient smokes about 10 cigarettes daily. She received cessation instruction. She was prescribed a nicotine patch. Depression Acute on chronic, situational. The pt did well on Effexor in the past. Will start Effexor XR 37.5 mg daily and the pt will follow up as an outpt. Pt Condition on Discharge: Stable Discharge Disposition: Discharge to SNF Discharge Time: > 30 minutes Discharge Instructions DIET: Follow Instructions for: As Tolerated, No Restrictions Activities you can perform: Weight Bearing as Vincent Follow up Referrals: Infectious Disease - 2 Weeks Neurosurgery - 1 Month with Aravind Olivre MD PCP Follow-up - 1 Week New Orders: C-REACTIVE PROTEIN - 3-5 Days CBC WITH DIFF - 3-5 Days CBC WITH DIFF - 08/23/16 CBC WITH DIFF - 08/30/16 CBC WITH DIFF - 09/06/16 CBC WITH DIFF - 09/13/16 CBC WITH DIFF - 09/20/16 CBC WITH DIFF - 09/27/16 CBC WITH DIFF - 10/04/16 CREATININE - 3-5 Days VANCOMYCIN TROUGH WESTERGREN SED RATE - 3-5 Days New Medications: Cefazolin Inj (Cefazolin Inj) 2 Gm/50 Ml Bagp 2 GM IV Q8H Infection Days 35 Ref 0 BAG Epinephrine Inj (Epinephrine Inj) 1 Mg/Ml Inj 0.3 MG IV PUSH ONCE PRN ALLERGIC REACTION #1 VIAL Epinephrine Inj (Epinephrine Inj) 1 Mg/Ml Inj 0.3 MG SQ ONCE Give with any signs of respiratory distress. PRN ALLERGIC REACTION #1 VIAL Hydrocortisone Inj (Solu-Cortef Inj) 250 Mg Inj 250 MG IV PUSH ONCE Give over 30-60 seconds. PRN ALLERGIC REACTION #1 Ref 0 VIAL Vancomycin Inj (Vancomycin Inj) 10 Gm Inj 1250 MG IV Q12HR Infection Days 80 VIAL Venlafaxine ER 24 HR (Effexor XR 24 HR) 37.5 Mg Cap 37.5 MG PO DAILY #30 Ref 0 CAP Cetirizine (Cetirizine) 10 Mg Tab 10 MG PO DAILY Allergies #30 TAB Docusate Sodium (Dok) 100 Mg Cap 100 MG PO Q12H Constipation #60 CAP Nicotine Patch (Nicotine Patch) 14 Mg/24 Hr Patch 1 PATCH T-DERMAL DAILY SMOKING #30 PATCH Oxycodone-Acetaminophen (Oxycodone-Acetaminophen) 5-325 mg Tab 1 TAB PO Q4H PRN pain #24 TAB Rifampin (Rifampin) 150 Mg Cap 300 MG PO Q12HR Infection Days 80 Reginald Dunn DO August 11, 2016 18:30
[2016-08-11 20:00] VITALS: BP 126/60; PULSE 77; RESP 22; TEMP 97.4; O2SAT 92
[2016-08-12] VITALS: BP 120/64; PULSE 76; RESP 20; TEMP 98.2; O2SAT 93
[2016-08-12] MEDS: ceFAZolin 2 GM PREMIX 50 ML IV SCH ×3 (01:52→15:28)
[2016-08-12] MEDS: IBUPROFEN 800 MG TAB PO SCH ×3 (01:54→17:30)
[2016-08-12] MEDS: oxyCODONE/ACETAMINOPHEN 10 MG/325 MG TAB PO PRN ×4 (01:57→17:30)
[2016-08-12] MEDS: VANCOMYCIN INJ 1,250 MG in SODIUM CHLOR 0.9% 250 ML INJ 250 ML IV SCH ×2 (02:43→14:15)
[2016-08-12 04:37] LABS: AUTOMATED NEUTROPHIL # 2.8 TH/MM3 (1.8-7.7); BASOPHIL % 0.5 % (0.0-2.0); EOSINOPHIL # 0.3 TH/MM3 (0-0.4); EOSINOPHIL % 4.4 % (0.0-4.0); HEMATOCRIT 28.5 % (35.0-46.0); LYMPHOCYTE # 2.4 TH/MM3 (1.0-4.8); MEAN CELL VOLUME 61.6 FL (80.0-100.0); MEAN CORPUSCULAR HGB CONC 30.8 % (32.0-36.0); MONO % 9.4 % (0.0-8.0); NEUT % 45.7 % (16.0-70.0); PLATELET COUNT 466 TH/MM3 (150-450); RED BLOOD COUNT 4.62 MIL/MM3 (4.00-5.30); WHITE BLOOD COUNT 6.1 TH/MM3 (4.0-11.0)
[2016-08-12 04:45] LABS: HEMO FLAGS AUTO DIFF
[2016-08-12] MEDS: MORPHINE SULFATE 4 MG/ML INJ IV PUSH PRN ×2 (05:10→11:07)
[2016-08-12 07:07] LABS: SCAN/DIFF AUTO DIFF CONFIRMED
[2016-08-12] MEDS: NICOTINE 14 MG/24 HR PATCH T-DERMAL SCH (07:32)
[2016-08-12] MEDS: VENLAFAXINE HCL XR 37.5 MG CAP PO SCH (07:32)
[2016-08-12] MEDS: SODIUM CHLORIDE 0.9% FLUSH 10 ML FLUSH IV FLUSH SCH (07:33)
[2016-08-12] MEDS: CETIRIZINE HCL 10 MG TAB PO SCH (07:33)
[2016-08-12] MEDS: RIFAMPIN 150 MG CAP PO SCH (07:33)
[2016-08-12 08:00] VITALS: BP 96/99; PULSE 56; RESP 15; TEMP 97.1; O2SAT 99
[2016-08-12] MEDS: DOCUSATE SODIUM 100 MG CAP PO SCH (11:07)
[2016-08-12 12:00] VITALS: BP 100/52; PULSE 81; RESP 16; TEMP 97.5; O2SAT 100
[2016-08-12 16:00] VITALS: BP 110/46; PULSE 53; RESP 16; TEMP 97.4; O2SAT 100
--- NOTE | 2016-08-12 19:32 | HHI.PR ---
Subjective Remarks The pt was feeling well. No acute complaints. Discussed with nursing. Objective Vitals Vital Signs Date Time Temp Pulse Resp B/P Pulse Ox O2 Delivery O2 Flow Rate FiO2 08/12/16 16:00 97.4 53 16 110/46 100 08/12/16 12:00 97.5 81 16 100/52 100 08/12/16 08:00 97.1 56 15 96/99 99 08/12/16 00:00 98.2 76 20 120/64 93 08/11/16 20:00 97.4 77 22 126/60 92 I/O 08/11/16 08/11/16 08/11/16 08/12/16 08/12/16 08/12/16 07:00 15:00 23:00 07:00 15:00 23:00 Intake Total 1060 ml 1010 ml 720 ml 822 ml 630 ml Output Total 850 ml 750 ml Balance 1060 ml 1010 ml -130 ml 72 ml 630 ml Intake Oral 220 ml 960 ml 720 ml 480 ml 580 ml IV Total 840 ml 50 ml 342 ml 50 ml Output Urine Total 850 ml 750 ml # Voids 2 5 3 # Bowel Movements 0 1 0 0 0 Result Diagram: 08/12/16 0346 08/12/16 0346 Imaging Last Impressions Cervical Spine MRI 08/06/16 0000 Signed Impressions: Service Date/Time: Saturday, August 06, 2016 08:06 - CONCLUSION: 1. Deformity of C3 vertebral body with dorsal and elation at this level causing mild canal stenosis, unchanged. 2. Enhancement of the posterior soft tissues greatest from C1-C4 level. 3. Posterior disc osteophyte complex at C5-6 causing minimal canal stenosis. 4. Fusion at C4-5. 5. There has been improvement of soft tissue enhancement on current study. Yvan Sebastian MD Objective Remarks GENERAL: Well-nourished, well-developed patient. SKIN: Focused skin assessment warm/dry. Multiple lesions on upper and lower extremities. HEAD: Normocephalic. EYES: No scleral icterus. No injection or drainage. NECK: Supple, trachea midline. No JVD or lymphadenopathy. Patient has moderate tenderness on palpation of the paraspinal area cervical spine. No midline tenderness. No crepitus no deformity noted. No redness no induration of the soft tissue of the neck. CARDIOVASCULAR: Regular rate and rhythm. Grade 1 systolic murmur appreciated. RESPIRATORY: Breath sounds equal bilaterally. No accessory muscle use. GASTROINTESTINAL: Abdomen soft, non-tender, nondistended. MUSCULOSKELETAL: No cyanosis, or edema. BACK: Nontender without obvious deformity. No CVA tenderness. NEURO: Motor strength 5/5 in upper and lower extremities. PSYCH: Mood and affect appropriate. Procedures None. Medications and IVs Current Medications Medications (Trade) Dose Ordered Sig/Declan Route Start Time Stop Time Status Last Admin (NS Flush) 2 ml UNSCH PRN IV FLUSH 08/06/16 11:15 (NS Flush) 2 ml BID IV FLUSH 08/06/16 21:00 08/12/16 07:33 (Tylenol) 650 mg Q4H PRN PO 08/06/16 11:15 08/06/16 20:48 (Colace) 100 mg Q12H PO 08/06/16 11:15 08/12/16 11:07 (Senokot) 17.2 mg Q12H PRN PO 08/06/16 11:15 (Tylenol) 650 mg Q6H PRN PO 08/06/16 11:15 Naloxone HCl 0.4 mg 0.4 mg UNSCH PRN IV 08/06/16 11:15 (Vancomycin Inj/ NS 250 ml Inj) 262.5 ml @ 250 mls/hr Q12H IV 08/06/16 14:00 08/12/16 14:15 (Percocet 10-325 Mg) 1 tab Q4H PRN PO 08/06/16 15:00 08/12/16 17:30 (Habitrol 14 Mg Patch.24 Hr) 1 patch DAILY T-DERMAL 08/06/16 15:15 08/12/16 07:32 Miscellaneous Information 1 HS T-DERMAL 08/06/16 21:00 08/10/16 20:45 (Percocet 5-325 Mg) 1 tab Q4H PRN PO 08/06/16 15:54 Morphine Sulfate 2 mg 2 mg Q6HR PRN IV PUSH 08/07/16 09:30 08/12/16 11:07 (Ancef 2 Gm Premix) 50 ml @ 100 mls/hr Q8H IV 08/07/16 18:00 08/12/16 07:33 Rifampin 300 mg 300 mg Q12HR PO 08/07/16 21:00 08/12/16 07:33 (Vancomycin Consult Pharmacy) 0 ml @ 0 mls/hr UNSCH OTHER 08/07/16 17:30 (ZyrTEC) 10 mg DAILY PO 08/08/16 11:00 08/12/16 07:33 (Motrin) 800 mg Q8H PO 08/10/16 10:00 08/13/16 10:01 08/12/16 17:30 (Effexor Xr) 37.5 mg DAILY PO 08/11/16 11:15 08/12/16 07:32 A/P Problem List: (1) Osteomyelitis of cervical spine ICD Code: M46.22 Status: Acute (2) Bacteremia ICD Code: R78.81 Status: Acute (3) Infectious endocarditis ICD Code: I33.0 Status: Acute Assessment and Plan C3 osteomyelitis The patient was supposed to be on IV vancomycin and by mouth rifampin but discontinued those medications weeks ago. MRI showed: Deformity of C3 vertebral body with dorsal elevation at this level causing mild canal stenosis, unchanged; Enhancement of the posterior soft tissues greatest from C1-C4 level; Posterior disc osteophyte complex at C5-6 causing minimal canal stenosis; Fusion at C4-5; There has been improvement of soft tissue enhancement on current study. ID consult appreciated. 07/01 blood cultures positive for staph aureus. Vegetation on tricuspid valve noted on echo. Normal EF. Neurosurgery consult appreciated. - Currently on cervical collar, patient refused Halo in the past. - continue vancomycin, cefazolin and rifampin per ID. - continue with pain control. Standing ibuprofen added. Pain management follow- up as an outpt. - follow up with family caseworker in regards to placement for completion of treatment. The pt states she has nowhere to be discharged to. D/c to SNF. 3008 signed. - follow repeat blood cultures. No growth, final. Hypokalemia Likely s/t decreased po intake. - replete and monitor. Resolved. Thalassemia Hemoglobin is similar to baseline. - Continue to monitor and transfuse as needed. Nicotine abuse The patient smokes about 10 cigarettes daily. - Cessation instruction. - Nicotine patch. Allergies The pt complains of chronic allergies. - Zyrtec ordered. Depression Acute on chronic, situational. - the pt did well on Effexor in the past. Start Effexor XR 37.5 mg daily and follow up as an outpt. PPx: SCDs. Discharge Planning D/c to SNF. Reginald Houser DO August 12, 2016 19:31
== END 2016-08-12 19:45 | DRG 539 ==
LOC: NEPC 03:29 → NEDA 10:38 → NEDH 10:55 → NEDA 10:57 → N07A 14:50
PROVIDERS: ADMIT Hospitalist; ATTEND Hospitalist
DX: M46.22 Osteomyelitis of vertebra, cervical region (principal); I33.0 Acute and subacute infective endocarditis; G62.9 Polyneuropathy, unspecified; M48.02 Spinal stenosis, cervical region; L97.919 Non-pressure chronic ulcer of unspecified part of right lower leg with unspecified severity; L97.929 Non-pressure chronic ulcer of unspecified part of left lower leg with unspecified severity; M46.42 Discitis, unspecified, cervical region; L98.499 Non-pressure chronic ulcer of skin of other sites with unspecified severity; I10 Essential (primary) hypertension; F41.9 Anxiety disorder, unspecified; J45.909 Unspecified asthma, uncomplicated; F17.210 Nicotine dependence, cigarettes, uncomplicated; M48.52XD Collapsed vertebra, not elsewhere classified, cervical region, subsequent encounter for fracture with routine healing; Z86.14 Personal history of Methicillin resistant Staphylococcus aureus infection; Z88.0 Allergy status to penicillin; Z91.19 Patient's noncompliance with other medical treatment and regimen; Z91.14 Patient's other noncompliance with medication regimen; Z86.61 Personal history of infections of the central nervous system; M25.78 Osteophyte, vertebrae; E87.6 Hypokalemia; D56.9 Thalassemia, unspecified; F32.9 Major depressive disorder, single episode, unspecified
CPT/HCPCS: 72156; 76937; 80048; 80053; 80202; 82565; 83735; 84100; 85007; 85025; 85027; 85652; 86140; 86403; 87040; 87186; 87205; 93308; 96365; 96375; A9579; J0690; J1885; J2270; J3370; J7050

== ENCOUNTER 2016-09-03 12:55 | Emergency (ER) | payer MEDICARE, OTHER ==
[~2016-09-03] VITALS: Ht 162.6 cm; Wt 60.0 kg
[~2016-09-03 12:55] MED LIST changes: +CEFA2SOL IV; +DOCU1CAP39 PO; +EPIN1INJ21 IV PUSH; +EPIN1INJ21 SQ; -FLUT50SP EACH NARE; -NEUR300C PO; +NICO14DI T-DERMAL; +OXYC1TAB63 PO; -QUET1TAB7 PO; +RIFA150C2 PO; +SOLU250I IV PUSH; +VANC10IN IV; +VENL1CAP38 PO
[2016-09-03 13:01] VITALS: BP 93/62; PULSE 106; RESP 20; TEMP 98.3
[2016-09-03] MEDS ORDERED: LIDOCAINE 1%/EPINEPHrine 1:100,000 SOLN 20 ML VIAL INFIL ONE (13:15)
[2016-09-03] MEDS ORDERED: ONDANSETRON HCL 4 MG/2 ML VIAL IV PUSH ONE (13:15)
[2016-09-03] MEDS ORDERED: MORPHINE SULFATE 4 MG/ML INJ IV PUSH ONE (13:15)
[2016-09-03] MEDS ORDERED: TETANUS/DIPHTHERIA TOXOID ADULT 0.5 ML VIAL IM ONE (13:15)
--- NOTE | 2016-09-03 13:16 | PD ---
HPI Chief Complaint: Laceration/Skin Injury Time Seen by Provider: 13:16 Travel History International Travel<30 days: No Contact w/Intl Traveler<30days: No Traveled to known affect area: No History of Present Illness HPI 45-year-old female with a history of osteomyelitis of the cervical spine secondary to IV drug use is brought to the emergency department by EMS from [facility] for evaluation of a trip and fall. The patient states that she was walking to her bathroom and her job pants are too long so she tripped on them and fell backward hitting the back of her head on the ground. Denies loss of consciousness. She does have a small laceration to the back of her scalp. States that initially she did refuse to calm but the staff convinced her to come in for evaluation. She does complain of pain in the back of her head where she had her head and states that her neck is hurting worse since the fall. She wears a cervical collar constantly at this time as she had recent surgery for her osteomyelitis. She has a PICC line in place and is receiving IV antibiotics daily for her infection. She denies any fever, chills, nausea, vomiting, vision changes, dizziness, numbness or tingling, weakness. She denies however is unsure of her last menstrual period, has an IUD in place. Unsure of her last tetanus vaccination. No other complaints. PFSH Past Medical History Asthma: Yes Anxiety: Yes Depression: No Cancer: No Cardiovascular Problems: Yes COPD: Yes (PT DENIES) Diminished Hearing: No Endocrine: No Genitourinary: No Hypertension: Yes Immune Disorder: No Musculoskeletal: Yes Neurologic: No Psychiatric: No Reproductive: No Respiratory: Yes (asthma) Immunizations Current: Yes ?: Not LMP: not in four months Social History Alcohol Use: No Tobacco Use: Yes (/2 ppd) Substance Use: No (pt states she is clean hx ivdu) Allergies-Medications (Allergen,Severity, Reaction): Coded Allergies: Penicillin (Verified Allergy, Intermediate, Rash, 08/06/16) Has taken Keflex without any problem *MDRO Multi-Drug Resistant Organism (Verified Adverse Reaction, Unknown, ) MRSA (blood) - 05/14/16, 05/16/16, 05/18/16; (sputum) - 2/18/17 MRSA (back abscess)-05/28/16 Uncoded Allergies: chemical allergy (Allergy, Severe, anaphalactic, 09/27/12) Reported Meds & Prescriptions Reported Meds & Active Scripts Active Rifampin 150 Mg Cap 300 Mg PO Q12HR 80 Days Epinephrine Inj 1 Mg/Ml Inj 0.3 Mg SQ ONCE PRN Give with any signs of respiratory distress. Epinephrine Inj 1 Mg/Ml Inj 0.3 Mg IV PUSH ONCE PRN Solu-Cortef Inj (Hydrocortisone Sodium Succinate) 250 Mg Inj 250 Mg IV PUSH ONCE PRN Give over 30-60 seconds. Vancomycin Inj (Vancomycin HCl) 10 Gm Inj 1,250 Mg IV Q12HR 80 Days Cefazolin Inj (Cefazolin Sodium/Dextrose) 2 Gm/50 Ml Bagp 2 Gm IV Q8H 35 Days Effexor XR 24 HR (Venlafaxine HCl) 37.5 Mg Cap 37.5 Mg PO DAILY Oxycodone-Acetaminophen 5-325 mg Tab 1 Tab PO Q4H PRN Nicotine Patch (Nicotine) 14 Mg/24 Hr Patch 1 Patch T-DERMAL DAILY Dok (Docusate Sodium) 100 Mg Cap 100 Mg PO Q12H Cetirizine (Cetirizine HCl) 10 Mg Tab 10 Mg PO DAILY Review of Systems Except as stated in HPI: all other systems reviewed are Neg Physical Exam Narrative GENERAL: Well-nourished and well-developed pleasant patient in no acute distress who is nontoxic appearing. SKIN: Warm and dry. HEAD: Normocephalic and atraumatic. Tenderness to palpation of posterior scalp with 1.5 cm laceration. EYES: No injection, drainage, or hyphema noted. PERRLA. EOMI. ENT: No nasal drainage noted. Oropharynx is clear. NECK: Supple and the trachea is midline. Patient has cervical collar in place. She does have tenderness of the cervical spine and decreased range of motion. CARDIOVASCULAR: Regular rate and rhythm. RESPIRATORY: Breath sounds are equal bilaterally with no accessory muscle use, wheezing, rhonchi, or crackles. GASTROINTESTINAL: Abdomen is soft, non-tender, and nondistended. MUSCULOSKELETAL: No obvious deformities, swelling, cyanosis, or ecchymosis is present throughout the upper and lower extremities. Patient has full range of motion without any signs of neurovascular compromise. Strength 5/5 upper and lower extremities and equal bilaterally. NEUROLOGICAL: Awake, alert, and oriented. Normal speech and gait. Cranial nerves are grossly intact. Data Data Last Documented VS Vital Signs Date Time Temp Pulse Resp B/P Pulse Ox O2 Delivery O2 Flow Rate FiO2 09/03/16 13:10 20 09/03/16 13:01 98.3 106 93/[address] Brain W/O Iv Contrast(Rout) (09/03/16 13:11) Ct Cerv Spine W/O Contrast (09/03/16 13:11) Morphine Inj (Morphine Inj) (09/03/16 13:15) Ondansetron Inj (Zofran Inj) (09/03/16 13:15) Ed Urine Pregnancytest Poc (09/03/16 13:11) Tetanus/Diphtheria Tox Adult (Tetanus/Di (09/03/16 13:15) Lidocai-Epi 1%-1:100,000 Inj (Xylocaine- (09/03/16 13:15) Lidocai-Epi 1%-1:100,000 Inj (Xylocaine- (09/03/16 13:23) MDM Medical Decision Making Medical Screen Exam Complete: Yes Emergency Medical Condition: Yes Differential Diagnosis Laceration versus contusion versus minor head injury versus intracranial hemorrhage versus acute on chronic neck pain Narrative Course 45-year-old female presents to the emergency department from her SNF for evaluation of headache and neck pain status post trip and fall. Patient is afebrile, vital signs are stable. Her blood pressure is a little low at 93/62, I reviewed the EMR which shows this is about her baseline. No loss of consciousness. No focal neurologic deficits. She has a small laceration to her posterior scalp that will be repaired using raquel, see procedure narrative. She has neck pain but states that she's had neck pain since her recent surgery and diagnosis of infection. Head CT is negative for any acute abnormalities. CT of the cervical spine is negative for any acute abnormalities. No significant change from prior imaging. Patient has ran stable without complaint while here in the emergency department. She is stable for discharge back to her detention facility. I discussed the case with my attending physician Dr. Lockhart who is aware of the patients history, physical examination findings, and treatment plan. Procedures Procedure Narrative LACERATION LOCATION: posterior scalp LENGTH: 1.5 cm NUMBER OF STITCHES/RAQUEL: 4 raquel REPAIR: The area of the laceration was prepped with Betadine and sterilely draped. The laceration was infiltrated with 1% lidocaine with epinephrine. The wound was copiously irrigated and explored without evidence of foreign body , tendon injury or neurovascular injury. The wound was closed using raquel. This was a single layer repair. A sterile dressing was applied. The patient was advised to keep the dressing clean and dry. Patient tolerated the procedure well. Diagnosis Primary Impression: Scalp laceration Qualified Code: S01.01XA - Scalp laceration, initial encounter Additional Impression: Fall Qualified Code: W19.XXXA - Fall, initial encounter Referrals: Primary Care Physician Patient Instructions: General Instructions, Laceration (ED) Additional Instructions: Wash wound gently with soap and water. Have raquel removed in 5-7 days. Return to the ED for any acute worsening of symptoms. Med/Other Pt SpecificInfo: No Change to Meds Disposition: 03 DISCHARGE TO SNF Condition: Stable Marsha Sandoval Sep 03, 2016 13:16
[2016-09-03] MEDS ORDERED: LIDOCAINE 1%/EPINEPHrine 1:100,000 SOLN 30 ML VIAL ONE (13:23)
--- NOTE | 2016-09-03 14:47 | RADRPT ---
EXAM DATE/TIME: 09/03/2016 13:59 [facility] COMPARISON: MRI BRAIN W & W/O CONTRAST, May 30, 2016, 18:57. INDICATIONS : Trauma to the back of the head. RADIATION DOSE: 32.81 CTDIvol (mGy) MEDICAL HISTORY : Cardiovascular disease. Hypertension. Neuropathy SURGICAL HISTORY : Fusion, cervical. ENCOUNTER: Initial ACUITY: 1 day PAIN SCALE: 5/10 LOCATION: cranial posterior TECHNIQUE: Multiple contiguous axial images were obtained of the head. Using automated exposure control and adj ustment of the mA and/or kV according to patient size, radiation dose was kept as low as reasonably a chievable to obtain optimal diagnostic quality images. FINDINGS: CEREBRUM: The ventricles are normal for age. No evidence of midline shift, mass lesion, hemorrhage or acute in farction. No extra-axial fluid collections are seen. POSTERIOR FOSSA: The cerebellum and brainstem are intact. The 4th ventricle is midline. The cerebellopontine angle i s unremarkable. EXTRACRANIAL: The visualized portion of the orbits is intact. SKULL: Posterior occipital soft tissue edema and minimal emphysema with raquel in place. Underlying calvarium is intact. CONCLUSION: 1. No acute intracranial abnormality. Dao Oconnor MD on September 03, 2016 at 14:40 Board Certified Radiologist. This report was verified electronically.
--- NOTE | 2016-09-03 14:53 | RADRPT ---
EXAM DATE/TIME: 09/03/2016 13:59 [facility] COMPARISON: CT CERVICAL SPINE W CONTRAST, June 21, 2016, 5:49. INDICATIONS : Trauma to head and neck area. RADIATION DOSE: 18.83 CTDIvol (mGy) MEDICAL HISTORY : Cardiovascular disease. Hypertension. SURGICAL HISTORY : Fusion, cervical. Neuropathy ENCOUNTER: Initial ACUITY: 1 day PAIN SCALE: 2/10 LOCATION: Bilateral inguinal Neck pain TECHNIQUE: Volumetric scanning of the cervical spine was performed. Multiplanar reconstructions in the sagittal, coronal and oblique axial planes were performed. Using automated exposure control and adjustment o f the mA and/or kV according to patient size, radiation dose was kept as low as reasonably achievable to obtain optimal diagnostic quality images. FINDINGS: The examination is compared to the previous study of 06/21/16. The exam demonstrates acute kyphotic deformity across the C2/3 level which measures approximately 50- 60. There is a plate which extends from the mid body of C3 down to C4. There is ostial lysis of the C3 vertebral body above the plate. These findings are stable compared to previous dated 06/21/16. Axial imaging: C1-C2: No significant abnormality identified. C2/3: Again noted is ostial lysis of the anterior aspect of the C3 vertebral body with acute kyphotic defor mity across the C2/3 disc space in the range of 50-60. There is no significant bony retropulsion. C3/4: This level is fused. The hardware appears intact. C4/5: There is osteophytic ridging from the vertebral endplates. The thecal space and foramina appear adequ ate. C5/6: There is osteophytic ridging from the vertebral endplates. The thecal space and foramina appear adequ ate. C6/7: The thecal space is adequate. The foramina appear adequate. C7/T1: No significant abnormality identified. CONCLUSION: 1. There is kyphotic deformity across the C2/3 level measuring approximately 50-60. This is stable c ompared to previous. There is ostial lysis of the superior endplate of C3. 2. Patient is fused across the C3-4 level. 3. Degenerative changes of the remainder of the cervical spine as above. 4. No acute fracture seen. Jerod Dang MD on September 03, 2016 at 14:47 Board Certified Radiologist. This report was verified electronically.
[2016-09-03 15:01] VITALS: RESP 16
== END 2016-09-03 15:12 ==
LOC: NEPE 12:55
DX: S01.01XA Laceration without foreign body of scalp, initial encounter (principal); I10 Essential (primary) hypertension; F17.210 Nicotine dependence, cigarettes, uncomplicated; W01.0XXA Fall on same level from slipping, tripping and stumbling without subsequent striking against object, initial encounter; Y92.129 Unspecified place in nursing home as the place of occurrence of the external cause; Z23 Encounter for immunization
CPT/HCPCS: 12001; 70450; 72125; 84703; 90471; 90714; 96374; 96375; 99285; J2270; J2405

== ENCOUNTER 2016-11-26 13:42 | Inpatient (IN) | payer OTHER, MEDICARE ==
[~2016-11-26] VITALS: Ht 157.5 cm; Wt 64.6 kg
[2016-11-26] MEDS ORDERED: LORazepam 2 MG/ML VIAL ONE (13:50)
[2016-11-26] MEDS ORDERED: SODIUM CHLOR 0.9% 1000 ML INJ 1,000 ML IV ONE (13:54)
[2016-11-26 13:56] VITALS: BP 109/59; PULSE 116; RESP 18; TEMP 105; O2SAT 95
[2016-11-26] MEDS ORDERED: VANCOMYCIN INJ 1,000 MG in SODIUM CHLOR 0.9% 250 ML INJ 250 ML IV STA (14:00)
[2016-11-26] MEDS ORDERED: SODIUM CHLORIDE 0.9% FLUSH 10 ML FLUSH IVF PRN (14:00)
[2016-11-26] MEDS ORDERED: ACETAMINOPHEN 325 MG TAB PO ONE (14:00)
[2016-11-26] MEDS ORDERED: LORazepam 2 MG/ML VIAL IVP ONE (14:00)
--- NOTE | 2016-11-26 14:05 | PD ---
HPI Chief Complaint: altered mental status Time Seen by Provider: 13:54 Travel History International Travel<30 days: No Contact w/Intl Traveler<30days: No Traveled to known affect area: No History of Present Illness HPI 46-year-old female patient with history of polysubstance abuse, presents to the ER today because of increased disorientation and agitation, she is febrile, and daughter states that she was given an unknown pill by her friend and she thinks that he may have been either Flacca or methamphetamine. She is also febrile, daughter states that she is being treated for blood infection. However, she missed her infectious disease appointment today. Modifying Factors: None Associated Signs & Symptoms: Disorientation, agitation, possible substance use, fever Risk Factors: Polysubstance abuse PFSH Past Medical History Asthma: Yes Anxiety: Yes Depression: No Cancer: No Cardiovascular Problems: Yes COPD: Yes (PT DENIES) Diminished Hearing: No Endocrine: No Genitourinary: No Hypertension: Yes Immune Disorder: No Musculoskeletal: Yes Neurologic: No Psychiatric: No Reproductive: No Respiratory: Yes (asthma) Immunizations Current: Yes Menopausal: No : 4 Para: 3 Miscarriage: 1 Social History Alcohol Use: No Tobacco Use: Yes (04/02 ppd) Substance Use: No (pt states she is clean hx ivdu) Allergies-Medications (Allergen,Severity, Reaction): Coded Allergies: penicillin G (Unverified Allergy, Intermediate, Rash, 11/12/16) Has taken Keflex without any problem *MDRO Multi-Drug Resistant Organism (Verified Adverse Reaction, Unknown, ) MRSA (blood) - 05/14/16, 05/16/16, 05/18/16; (sputum) - 05/17/16 MRSA (back abscess)-05/28/16 Uncoded Allergies: chemical allergy (Allergy, Severe, anaphalactic, 09/27/12) Reported Meds & Prescriptions Reported Meds & Active Scripts Active Rifampin 150 Mg Cap 300 Mg PO Q12HR 80 Days Epinephrine Inj 1 Mg/Ml Inj 0.3 Mg SQ ONCE PRN Give with any signs of respiratory distress. Epinephrine Inj 1 Mg/Ml Inj 0.3 Mg IV PUSH ONCE PRN Solu-Cortef Inj (Hydrocortisone Sodium Succinate) 250 Mg Inj 250 Mg IV PUSH ONCE PRN Give over 30-60 seconds. Vancomycin Inj (Vancomycin HCl) 10 Gm Inj 1,250 Mg IV Q12HR 80 Days Cefazolin Inj (Cefazolin Sodium/Dextrose) 2 Gm/50 Ml Bagp 2 Gm IV Q8H 35 Days Effexor XR 24 HR (Venlafaxine HCl) 37.5 Mg Cap 37.5 Mg PO DAILY Oxycodone-Acetaminophen 5-325 mg Tab 1 Tab PO Q4H PRN Nicotine Patch (Nicotine) 14 Mg/24 Hr Patch 1 Patch T-DERMAL DAILY Dok (Docusate Sodium) 100 Mg Cap 100 Mg PO Q12H Cetirizine (Cetirizine HCl) 10 Mg Tab 10 Mg PO DAILY Review of Systems ROS Limitations: Altered Mental Status, Combative Physical Exam Narrative GENERAL: Well-developed middle age white female patient who appears older than stated age, is disoriented, agitated, wildly flailing her limbs in the ER, and poorly responsive to medical care. Awake and agitated. SKIN: Focused skin assessment warm/dry. Notable for track mercado on both arms, a left forearm cellulitis area notable. HEAD: Atraumatic. Normocephalic. EYES: Pupils equal and round. No scleral icterus. No injection or drainage. ENT: No nasal bleeding or discharge. Mucous membranes pink and moist. NECK: Trachea midline. No JVD. CARDIOVASCULAR: Regular rate and rhythm. No murmur appreciated. RESPIRATORY: No accessory muscle use. Clear to auscultation. Breath sounds equal bilaterally. GASTROINTESTINAL: Abdomen soft, non-tender, nondistended. Hepatic and splenic margins not palpable. MUSCULOSKELETAL: No obvious deformities. No clubbing. No cyanosis. No edema. NEUROLOGICAL: Awake and alert. No obvious cranial nerve deficits. Motor grossly within normal limits. Normal speech. PSYCHIATRIC: Appropriate mood and affect; insight and judgment normal. Data Data Last Documented VS Vital Signs Date Time Temp Pulse Resp B/P (MAP) Pulse Ox O2 Delivery O2 Flow Rate FiO2 11/26/16 16:21 100 Nasal Cannula 4.00 11/26/16 14:03 111 18 11/26/16 13:56 105.0 109/59 (76) Orders Orders Lorazepam Inj (Ativan Inj) (11/26/16 13:50) Electrocardiogram (11/26/16 13:54) Beta Hcg (Quant/Titer) (11/26/16 13:54) Complete Blood Count With Diff (11/26/16 13:54) Comprehensive Metabolic Panel (11/26/16 13:54) Urinalysis - C+S If Indicated (11/26/16 13:54) Iv Access Insert/Monitor (11/26/16 13:54) Cath For Specimen (11/26/16 13:54) Ecg Monitoring (11/26/16 13:54) Oximetry (11/26/16 13:54) Lorazepam Inj (Ativan Inj) (11/26/16 14:00) Sodium Chloride 0.9% Flush (Ns Flush) (11/26/16 14:00) Sodium Chlor 0.9% 1000 Ml Inj (Ns 1000 M (11/26/16 13:54) Drug Screen, Random Urine (11/26/16 13:54) Alcohol (Ethanol) (11/26/16 13:54) Salicylates (Aspirin) (11/26/16 13:54) Tylenol (Acetaminophen) (11/26/16 13:54) Restraints Violent (11/26/16 13:54) Lactic Acid Sepsis Protocol (11/26/16 14:00) Blood Culture (11/26/16 14:00) Chest, Single Ap (11/26/16 14:00) Acetaminophen (Tylenol) (11/26/16 14:00) Vancomycin Inj (Vancomycin Inj) (11/26/16 14:00) Acetaminophen Supp (Tylenol Supp) (11/26/16 15:00) Urine Culture (11/26/16 14:20) Admit Order (Ed Use Only) (11/26/16 16:20) Urinary Catheter Insert/Apply (11/26/16 16:20) Labs Laboratory Tests Test 11/26/16 14:20 11/26/16 14:44 11/26/16 14:45 White Blood Count 14.9 TH/MM3 Red Blood Count 5.16 MIL/MM3 Hemoglobin 9.6 GM/DL Hematocrit 31.0 % Mean Corpuscular Volume 60.0 FL Mean Corpuscular Hemoglobin 18.6 PG Mean Corpuscular Hemoglobin Concent 31.1 % Red Cell Distribution Width 17.2 % Platelet Count 213 TH/MM3 Mean Platelet Volume 8.8 FL Neutrophils (%) (Auto) 87.0 % Lymphocytes (%) (Auto) 8.4 % Monocytes (%) (Auto) 4.5 % Eosinophils (%) (Auto) 0.0 % Basophils (%) (Auto) 0.1 % Neutrophils # (Auto) 12.9 TH/MM3 Lymphocytes # (Auto) 1.3 TH/MM3 Monocytes # (Auto) 0.7 TH/MM3 Eosinophils # (Auto) 0.0 TH/MM3 Basophils # (Auto) 0.0 TH/MM3 CBC Comment DIFF FINAL Differential Comment Urine Color DARK-YELLOW Urine Turbidity HAZY Urine pH 6.0 Urine Specific [place] 1.022 Urine Protein 100 mg/dL Urine Glucose (UA) TRACE mg/dL Urine Ketones NEG mg/dL Urine Occult Blood MOD Urine Nitrite NEG Urine Bilirubin NEG Urine Urobilinogen 2.0 MG/DL Urine Leukocyte Esterase NEG Urine RBC 18 /hpf Urine WBC 9 /hpf Urine Squamous Epithelial Cells 4 /hpf Urine Bacteria RARE /hpf Urine Hyaline Casts 4 /lpf Urine Mucus MANY /lpf Microscopic Urinalysis Comment CULTURE INDICATED Blood Urea Nitrogen 9 MG/DL Creatinine 1.05 MG/DL Random Glucose 108 MG/DL Total Protein 8.4 GM/DL Albumin 2.9 GM/DL Calcium Level 8.2 MG/DL Alkaline Phosphatase 124 U/L Aspartate Amino Transf (AST/SGOT) 52 U/L Alanine Aminotransferase (ALT/SGPT) 34 U/L Total Bilirubin 1.0 MG/DL Sodium Level 131 MEQ/L Potassium Level 3.7 MEQ/L Chloride Level 93 MEQ/L Carbon Dioxide Level 27.3 MEQ/L Anion Gap 11 MEQ/L Estimat Glomerular Filtration Rate 57 ML/MIN Human Chorionic Gonadotropin, Quant LESS THAN 1 MIU/ML Acetaminophen Level LESS THAN 2.0 MCG/ML Ethyl Alcohol Level LESS THAN 3 MG/DL Lactic Acid Level 2.0 mmol/L Salicylates Level LESS THAN 1.7 MG/DL [facility] Medical Decision Making Medical Screen Exam Complete: Yes Emergency Medical Condition: Yes Medical Record Reviewed: Yes Interpretation(s) Laboratory Tests Test 11/26/16 14:20 11/26/16 14:44 11/26/16 14:45 White Blood Count 14.9 TH/MM3 (4.0-11.0) Hemoglobin 9.6 GM/DL (11.6-15.3) Hematocrit 31.0 % (35.0-46.0) Mean Corpuscular Volume 60.0 FL (80.0-100.0) Mean Corpuscular Hemoglobin 18.6 PG (27.0-34.0) Mean Corpuscular Hemoglobin Concent 31.1 % (32.0-36.0) Neutrophils (%) (Auto) 87.0 % (16.0-70.0) Lymphocytes (%) (Auto) 8.4 % (9.0-44.0) Neutrophils # (Auto) 12.9 TH/MM3 (1.8-7.7) Urine Color DARK-YELLOW (YELLW/STRAW) Urine Turbidity HAZY (CLEAR) Urine Protein 100 mg/dL (NEG-TRACE) Urine Occult Blood MOD (NEG) Urine RBC 18 /hpf (0-3) Urine WBC 9 /hpf (0-5) Urine Bacteria RARE /hpf (NONE) Urine Mucus MANY /lpf (OCC) Creatinine 1.05 MG/DL (0.50-1.00) Random Glucose 108 MG/DL (74-106) Total Protein 8.4 GM/DL (6.4-8.2) Albumin 2.9 GM/DL (3.4-5.0) Calcium Level 8.2 MG/DL (8.5-10.1) Alkaline Phosphatase 124 U/L (45-117) Aspartate Amino Transf (AST/SGOT) 52 U/L (15-37) Sodium Level 131 MEQ/L (136-145) Chloride Level 93 MEQ/L (98-107) Estimat Glomerular Filtration Rate 57 ML/MIN (>89) Acetaminophen Level LESS THAN 2.0 MCG/ML Salicylates Level LESS THAN 1.7 MG/DL Last 24 hours Impressions Chest X-Ray 11/26/16 1400 Signed Impressions: Service Date/Time: Saturday, November 26, 2016 14:22 - CONCLUSION: Prominent cardiac silhouette without suspicious lung lesions. Austin Dang MD FACR Differential Diagnosis Cellulitis versus sepsis versus substance intoxication versus alcohol abuse Narrative Course Lab work shows significant leukocytosis with lactate elevation. Considering patient's history, there is suspicion of sepsis. Vancomycin was initiated after cultures were drawn. Patient was given Ativan in the ER and had to be restrained with good response. At this point, my plan would be to admit the patient for further IV antibiotics. Case is discussed with Dr. Recinos for admission. Diagnosis Primary Impression: IV drug abuse Additional Impression: Severe sepsis Admitting Information Admitting Physician Requests: Admit Luisito Lockhart MD Nov 26, 2016 14:05
--- NOTE | 2016-11-26 14:40 | RADRPT ---
EXAM DATE/TIME: 11/26/2016 14:22 [facility] COMPARISON: CHEST SINGLE AP, July 04, 2016, 11:19. INDICATIONS : Fever. Evaluate lung status. MEDICAL HISTORY : Cardiovascular disease. Hypertension. SURGICAL HISTORY : Fusion, cervical. Neuropathy ENCOUNTER: Initial ACUITY: 1 day PAIN SCORE: Non-responsive. LOCATION: Bilateral chest FINDINGS: Cardiac silhouette is mildly prominent without congestive failure. There are no suspicious lung lesi ons. The portion of the bony skeleton visualized is unremarkable. CONCLUSION: Prominent cardiac silhouette without suspicious lung lesions. Austin Dang MD FACR on November 26, 2016 at 14:37 Board Certified Radiologist. This report was verified electronically.
[2016-11-26 14:46] LABS: AUTOMATED NEUTROPHIL # 12.9 TH/MM3 (1.8-7.7); BASOPHIL % 0.1 % (0.0-2.0); HEMO FLAGS DIFF FINAL; LYMPH % 8.4 % (9.0-44.0); LYMPHOCYTE # 1.3 TH/MM3 (1.0-4.8); MEAN CORPUSCULAR HEMOGLOBIN 18.6 PG (27.0-34.0); MEAN CORPUSCULAR HGB CONC 31.1 % (32.0-36.0); MONO % 4.5 % (0.0-8.0); PLATELET COUNT 213 TH/MM3 (150-450); RED BLOOD COUNT 5.16 MIL/MM3 (4.00-5.30); RED CELL DISTRIBUTION WIDTH 17.2 % (11.6-17.2); WHITE BLOOD COUNT 14.9 TH/MM3 (4.0-11.0)
[2016-11-26 14:55] LABS: BACTERIA, URINE RARE /hpf; BLOOD, URINE MOD (NEG); COMMENT (UR) CULTURE INDICATED; CULTURE IF INDICATED CULTURE INDICATED; GLUCOSE,URINE TRACE mg/dL (NEG); HYALINE CAST, URINE 4 /lpf (RARE); KETONE, URINE NEG (NEG); MUCUS URINE MANY /lpf (OCC); NITRITE,URINE NEG (NEG); SQUAMOUS EPITHELIAL CELL URINE 4 /hpf (0-5); URINE COLOR DARK-YELLOW (YELLW/STRAW)
[2016-11-26] MEDS ORDERED: ACETAMINOPHEN 650 MG SUPP RECTAL ONE (15:00)
[2016-11-26 15:03] LABS: ALT (GPT) 34 U/L (10-53); ANION GAP 11 MEQ/L (5-15); AST (GOT) 52 U/L (15-37); BICARBONATE 27.3 MEQ/L (21.0-32.0); BLOOD UREA NITROGEN 9 MG/DL (7-18); CHLORIDE 93 MEQ/L (98-107); GLOMERULAR FILTRATION RATE 57 ML/MIN (>89); POTASSIUM 3.7 MEQ/L (3.5-5.1); SODIUM (NA) 131 MEQ/L (136-145)
[2016-11-26 15:06] LABS: ALKALINE PHOSPHATASE 124 U/L (45-117); BETA HCG QUANT LESS THAN 1 MIU/ML (0-5)
[2016-11-26 15:16] LABS: ALCOHOL LESS THAN 3 MG/DL (0-5)
[2016-11-26 15:17] LABS: ACETAMINOPHEN LESS THAN 2.0 MCG/ML (10.0-30.0)
[2016-11-26 16:21] VITALS: O2SAT 100
[2016-11-26 16:23] VITALS: BP 110/60; PULSE 102; RESP 18; TEMP 102.9; O2SAT 100
[2016-11-26] MEDS ORDERED: BISACODYL 10 MG SUPP RECTAL PRN (17:30)
[2016-11-26] MEDS ORDERED: SENNOSIDES 8.6 MG TAB PO PRN (17:30)
[2016-11-26] MEDS ORDERED: LACTULOSE SYRUP 20 GM/30 ML CUP PO PRN (17:30)
[2016-11-26] MEDS ORDERED: ACETAMINOPHEN 325 MG TAB PO PRN (17:30)
[2016-11-26] MEDS ORDERED: SODIUM CHLORIDE 0.9% FLUSH 10 ML FLUSH IV FLUSH PRN (17:30)
[2016-11-26] MEDS ORDERED: MAGNESIUM HYDROXIDE SUSP 30 ML CUP PO PRN (17:30)
[2016-11-26] MEDS ORDERED: NALOXONE HCL 0.4 MG/ML AMP IV PRN (17:30)
[2016-11-26] MEDS ORDERED: Vancomycin Consult Pharmacy 1 EA OTHER SCH (17:45)
--- NOTE | 2016-11-26 17:46 | HHI.HP ---
[facility] Admission Diagnosis sepsis/cellulitis/polysubstance abuse Diagnoses: (1) IV drug abuse (2) Severe sepsis (3) Infectious endocarditis (4) Osteomyelitis of cervical spine (5) Bacteremia (6) Fever (7) Abscess in epidural space of lumbar spine (8) Neck abscess (9) Amphetamine use disorder, severe, dependence Chief Complaint: Agitation, altered mental status Travel History International Travel<30 Days: No Contact w/Intl Traveler <30 Da: No Traveled to Known Affected Are: No Sepsis Criteria SIRS Criteria (2 or more): Temp > 100.9 or < 96.8, Heart rate over 90, WBC > 67897, < 4000 or > 10% bands Sepsis Criteria (SIRS+source): Infect source susp/known Criteria Outcome: Meets SIRS criteria, Meets sepsis criteria History of Present Illness 46-year-old female with a past medical history of IVDA, cervical osteomyelitis, endocarditis, lumbar abscesses who presented with agitation and altered mental status. Per report, the patient was brought in by family secondary to agitation and altered mental status. The patient required restraints and Ativan in the ED. The patient is awake, alert, and follows commands, but is currently nonverbal. And thus and noncontributory historian History is obtained from ED communication the medical record. The patient's daughter thought that the patient took flakka in the patient's roommate thought that she took meth. Reportedly she seen treated outpatient for a blood infection. She has had multiple admissions for infections here in the past. She was found to have a high fever in the ED and received IV vancomycin. 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 Depression Past Surgical History Evacuation retro-pharyngeal and anterior cervical abscess Evacuation lumbar spinal abscesses Reported Medications Unknown Allergies: Coded Allergies: penicillin G (Unverified Allergy, Intermediate, Rash, 11/12/16) Has taken Keflex without any problem *MDRO Multi-Drug Resistant Organism (Verified Adverse Reaction, Unknown, ) MRSA (blood) - 05/14/16, 05/16/16, 05/18/16; (sputum) - 05/17/16 MRSA (back abscess)-05/28/16 Uncoded Allergies: chemical allergy (Allergy, Severe, anaphalactic, 09/27/12) Active Ordered Medications Current Medications Medications (Trade) Dose Ordered Sig/Declan Route Start Time Stop Time Status Last Admin (NS Flush) 2 ml UNSCH PRN IVF 11/26/16 14:00 Sodium Chloride 1,000 ml @ 100 mls/hr Q10H IV 11/26/16 17:30 UNV (NS Flush) 2 ml UNSCH PRN IV FLUSH 11/26/16 17:30 UNV (NS Flush) 2 ml BID IV FLUSH 11/26/16 21:00 UNV (Tylenol) 650 mg Q4H PRN PO 11/26/16 17:30 UNV (Lovenox Inj) 40 mg Q24H SQ 11/26/16 17:30 UNV (Narcan Inj) 0.4 mg UNSCH PRN IV 11/26/16 17:30 UNV (Milk Of Magnesia Liq) 30 ml Q12H PRN PO 11/26/16 17:30 UNV (Senokot) 17.2 mg Q12H PRN PO 11/26/16 17:30 UNV (Dulcolax Supp) 10 mg DAILY PRN RECTAL 11/26/16 17:30 UNV (Lactulose Liq) 30 ml DAILY PRN PO 11/26/16 17:30 UNV (Ativan Inj) 1 mg Q4H PRN IV PUSH 11/26/16 17:45 UNV Family History Lung and breast cancer Social History IV drug abuse Tobacco abuse No alcohol ANY DRUG THAT SHE CAN SHOOT UP Physical Exam Vital Signs Vital Signs Date Time Temp Pulse Resp B/P (MAP) Pulse Ox O2 Delivery O2 Flow Rate FiO2 11/26/16 16:23 102.9 102 18 110/60 (77) 100 Room Air 11/26/16 16:21 100 Nasal Cannula 4.00 11/26/16 14:03 111 18 93 Room Air 11/26/16 13:56 105.0 116 18 109/59 (76) 95 Physical Exam GENERAL: Well-developed well-nourished. Poor hygiene. In no acute distress. SKIN: Multiple track mercado of the upper extremities. Possible cellulitis and blister formation on the left forearm. Small dried scabs of the upper and lower extremities. HEENT: Normocephalic. Pupils pinpoint and nonreactive to light. Mucous membranes pink and moist. TONGUE MIDLINE NECK SUPPLE NO JVD CARDIOVASCULAR: Regular rate and rhythm. No murmur appreciated. S1, S2 NO S3 OR S4 NO THRILL OR BRUIT RESPIRATORY: No accessory muscle use. Clear to auscultation. Breath sounds equal bilaterally. COARSE BREATH SOUNDS GASTROINTESTINAL: Abdomen soft, non-tender, nondistended. Bowel sounds x4. MUSCULOSKELETAL: No obvious deformities. No clubbing or cyanosis. No edema. NEUROLOGICAL: Sedated but awakens easily. Moves upper and lower extremities spontaneously. Nonverbal. The patient sticks her tongue out, squeezes my fingers, and wiggles her toes all to command. INSIGHT AND JUDGEMENT ARE POOR MOOD AND BEHAVIOR ARE INAPPROPRIATE Laboratory Laboratory Tests Test 11/26/16 14:20 11/26/16 14:44 11/26/16 14:45 White Blood Count 14.9 Red Blood Count 5.16 Hemoglobin 9.6 Hematocrit 31.0 Mean Corpuscular Volume 60.0 Mean Corpuscular Hemoglobin 18.6 Mean Corpuscular Hemoglobin Concent 31.1 Red Cell Distribution Width 17.2 Platelet Count 213 Mean Platelet Volume 8.8 Neutrophils (%) (Auto) 87.0 Lymphocytes (%) (Auto) 8.4 Monocytes (%) (Auto) 4.5 Eosinophils (%) (Auto) 0.0 Basophils (%) (Auto) 0.1 Neutrophils # (Auto) 12.9 Lymphocytes # (Auto) 1.3 Monocytes # (Auto) 0.7 Eosinophils # (Auto) 0.0 Basophils # (Auto) 0.0 CBC Comment DIFF FINAL Differential Comment Urine Color DARK-YELLOW Urine Turbidity HAZY Urine pH 6.0 Urine Specific [place] 1.022 Urine Protein 100 Urine Glucose (UA) TRACE Urine Ketones NEG Urine Occult Blood MOD Urine Nitrite NEG Urine Bilirubin NEG Urine Urobilinogen 2.0 Urine Leukocyte Esterase NEG Urine RBC 18 Urine WBC 9 Urine Squamous Epithelial Cells 4 Urine Bacteria RARE Urine Hyaline Casts 4 Urine Mucus MANY Microscopic Urinalysis Comment CULTURE INDICATED Blood Urea Nitrogen 9 Creatinine 1.05 Random Glucose 108 Total Protein 8.4 Albumin 2.9 Calcium Level 8.2 Alkaline Phosphatase 124 Aspartate Amino Transf (AST/SGOT) 52 Alanine Aminotransferase (ALT/SGPT) 34 Total Bilirubin 1.0 Sodium Level 131 Potassium Level 3.7 Chloride Level 93 Carbon Dioxide Level 27.3 Anion Gap 11 Estimat Glomerular Filtration Rate 57 Human Chorionic Gonadotropin, Quant LESS THAN 1 Acetaminophen Level LESS THAN 2.0 Ethyl Alcohol Level LESS THAN 3 Lactic Acid Level 2.0 Salicylates Level LESS THAN 1.7 Date/Time Source Procedure Growth Status 11/26/16 14:45 Blood Peripheral Aerobic Blood Culture Pending Received 11/26/16 14:45 Blood Peripheral Anaerobic Blood Culture Pending Received 11/26/16 14:20 Urine Clean Catch Urine Culture Pending Received Result Diagram: 11/26/16 1420 11/26/16 1420 Imaging Last Impressions Chest X-Ray 11/26/16 1400 Signed Impressions: Service Date/Time: Thursday, November 26, 2016 14:22 - CONCLUSION: Prominent cardiac silhouette without suspicious lung lesions. Austin Dang MD FACR Caprini VTE Risk Assessment Caprini VTE Risk Assessment: No/Low Risk (score <= 1) Caprini Risk Assessment Model Point Value = 1 Point Value = 2 Point Value = 3 Point Value = 5 Age 41-60 Minor surgery BMI > 25 kg/m2 Swollen legs Varicose veins or History of unexplained or recurrent spontaneous Oral contraceptives or hormone replacement Sepsis (< 1 month) Serious lung disease, including pneumonia (< 1 month) Abnormal pulmonary function Acute myocardial infarction Congestive heart failure (< 1 month) History of inflammatory bowel disease Medical patient at bed rest Age 61-74 Arthroscopic surgery Major open surgery (> 45 min) Laparoscopic surgery (> 45 min) Malignancy Confined to bed (> 72 hours) Immobilizing plaster cast Central venous access Age >= 75 History of VTE Family history of VTE Factor V Leiden Prothrombin [id number] Lupus anticoagulant Anticardiolipin antibodies Elevated serum homocysteine Heparin-induced thrombocytopenia Other congenital or acquired thrombophilia Stroke (< 1 month) Elective arthroplasty Hip, pelvis, or leg fracture Acute spinal cord injury (< 1 month) Prophylaxis Regimen Total Risk Factor Score Risk Level Prophylaxis Regimen 0-1 Low Early ambulation 2 Moderate Order ONE of the following: *Sequential Compression Device (SCD) *Heparin 5000 units SQ BID 3-4 Higher Order ONE of the following medications: *Heparin 5000 units SQ TID *Enoxaparin/Lovenox 40 mg SQ daily (WT < 150 kg, CrCl > 30 mL/min) *Enoxaparin/Lovenox 30 mg SQ daily (WT < 150 kg, CrCl > 10-29 mL/min) *Enoxaparin/Lovenox 30 mg SQ BID (WT < 150 kg, CrCl > 30 mL/min) AND/OR *Sequential Compression Device (SCD) 5 or more Highest Order ONE of the following medications: *Heparin 5000 units SQ TID (Preferred with Epidurals) *Enoxaparin/Lovenox 40 mg SQ daily (WT < 150 kg, CrCl > 30 mL/min) *Enoxaparin/Lovenox 30 mg SQ daily (WT < 150 kg, CrCl > 10-29 mL/min) *Enoxaparin/Lovenox 30 mg SQ BID (WT < 150 kg, CrCl > 30 mL/min) AND *Sequential Compression Device (SCD) Assessment and Plan Problem List: (1) Amphetamine use disorder, severe, dependence ICD Code: F15.20 - Other stimulant dependence, uncomplicated Status: Acute (2) Abscess in epidural space of lumbar spine ICD Code: G06.1 - Intraspinal abscess and granuloma Status: Acute (3) Osteomyelitis of cervical spine ICD Code: M46.22 - Osteomyelitis of vertebra, cervical region Status: Acute (4) Neck abscess ICD Code: L02.11 - Cutaneous abscess of neck Status: Acute (5) Infectious endocarditis ICD Code: I33.0 - Acute and subacute infective endocarditis Status: Acute (6) Bacteremia ICD Code: R78.81 - Bacteremia Status: Acute (7) Fever ICD Code: R50.9 - Fever, unspecified Status: Acute (8) IV drug abuse ICD Code: F19.10 - Other psychoactive substance abuse, uncomplicated Status: Acute Assessment and Plan 46-year-old female with a past medical history of IVDA, cervical osteomyelitis, endocarditis, lumbar abscesses who presented with agitation and altered mental status Acute encephalopathy: Toxic and/or metabolic. Possibly secondary to substance use with flakka or meth. Possibly secondary to acute infection. -Treat for possible infection as below -IV Ativan as needed -Check UDS -Restraints if needed -Swallow eval -Monitor on telemetry SIRS: Tmax 105.0, tachycardia, WBC 14.9. Source potentially bacteremia, left arm cellulitis, UTI. Could also be secondary to drug overdose. Multiple admissions for abscesses and bacteremia. -Blood cultures pending -Urine culture pending -Aggressive IVF -IV antibiotics with vancomycin and cefepime -Consult ID DVT prophylaxis: Lovenox Code Status FULL CODE Discussed Condition With Patient, Dr. Recinos, ED staff AND PA AND RNS Attending Statement The exam, history, and the medical decision-making described in the above note were completed with the assistance of the mid-level provider. I reviewed and agree with the findings presented. I attest that I had a [id number] encounter with the patient on the same day, and personally performed and documented my assessment and findings in the medical record. 3 days is the estimated time the patient will need to remain in the hospital, assuming treatment plan goals are met and no additional complications. The services are ordered in accordance with Medicare regulations or non- Medicare payer requirements, as applicable. In the case of services not specified as inpatient-only, they are appropriately provided as inpatient services in accordance with the 2-midnight benchmark. Justice Shields Nov 26, 2016 17:46 Austin Recinos DO Nov 26, 2016 18:14
[2016-11-26] MEDS: CEFEPIME INJ 1,000 MG in SODIUM CHLORIDE 0.9% INJ 100 ML IV SCH (18:14)
[2016-11-26] MEDS: SODIUM CHLOR 0.9% 1000 ML INJ 1,000 ML IV SCH (18:15)
[2016-11-26 18:44] VITALS: BP 99/54; PULSE 95; RESP 18; TEMP 100.6; O2SAT 100
[2016-11-26 20:00] VITALS: BP 98/53; PULSE 91; RESP 18; TEMP 98; O2SAT 100
[2016-11-26] MEDS: SODIUM CHLORIDE 0.9% FLUSH 10 ML FLUSH IV FLUSH SCH (21:00)
[2016-11-26] MEDS: ENOXAPARIN SODIUM 40 MG/0.4 ML SYRINGE SQ SCH (21:56)
[2016-11-26] MEDS: RIFAMPIN 150 MG CAP PO SCH (21:56)
[2016-11-26] MEDS: DOCUSATE SODIUM 100 MG CAP PO SCH (22:00)
[2016-11-27] VITALS (9 sets, daily range): BP systolic 115–140; BP diastolic 62–72; PULSE 70–93; RESP 16–20; TEMP 98–99.6; O2SAT 95–100
[2016-11-27] MEDS: SODIUM CHLOR 0.9% 1000 ML INJ 1,000 ML IV SCH ×5 (00:15→20:47)
[2016-11-27] MEDS: oxyCODONE/ACETAMINOPHEN 5 MG/325 MG TAB PO PRN ×3 (01:27→18:53)
[2016-11-27] MEDS: VANCOMYCIN INJ 900 MG in SODIUM CHLOR 0.9% 250 ML INJ 250 ML IV SCH ×2 (04:35→14:42)
[2016-11-27] MEDS: CEFEPIME INJ 1,000 MG in SODIUM CHLORIDE 0.9% INJ 100 ML IV SCH (05:56)
[2016-11-27 08:50] LABS: AUTOMATED NEUTROPHIL # 7.7 TH/MM3 (1.8-7.7); BASOPHIL % 0.3 % (0.0-2.0); EOSINOPHIL # 0.1 TH/MM3 (0-0.4); EOSINOPHIL % 0.6 % (0.0-4.0); HEMATOCRIT 29.5 % (35.0-46.0); HEMO FLAGS DIFF FINAL; LYMPH % 10.9 % (9.0-44.0); MEAN CELL VOLUME 60.6 FL (80.0-100.0); MEAN CORPUSCULAR HEMOGLOBIN 19.2 PG (27.0-34.0); MEAN CORPUSCULAR HGB CONC 31.7 % (32.0-36.0); NEUT % 81.2 % (16.0-70.0); PLATELET COUNT 165 TH/MM3 (150-450); RED BLOOD COUNT 4.87 MIL/MM3 (4.00-5.30); RED CELL DISTRIBUTION WIDTH 17.3 % (11.6-17.2); WHITE BLOOD COUNT 9.4 TH/MM3 (4.0-11.0)
[2016-11-27] MEDS: NICOTINE 14 MG/24 HR PATCH T-DERMAL SCH (08:54)
[2016-11-27] MEDS: VENLAFAXINE HCL XR 37.5 MG CAP PO SCH (08:54)
[2016-11-27] MEDS: RIFAMPIN 150 MG CAP PO SCH ×2 (08:54→20:49)
[2016-11-27] MEDS: DOCUSATE SODIUM 100 MG CAP PO SCH ×2 (08:55→20:49)
[2016-11-27] MEDS: CETIRIZINE HCL 10 MG TAB PO SCH (08:55)
[2016-11-27] MEDS: SODIUM CHLORIDE 0.9% FLUSH 10 ML FLUSH IV FLUSH SCH ×2 (09:00→20:47)
[2016-11-27] MEDS: REMOVE OLD PATCH T-DERMAL SCH (09:00)
[2016-11-27 09:17] LABS: ALT (GPT) 30 U/L (10-53); ANION GAP 9 MEQ/L (5-15); AST (GOT) 55 U/L (15-37); BLOOD UREA NITROGEN 11 MG/DL (7-18); CHLORIDE 104 MEQ/L (98-107); GLOMERULAR FILTRATION RATE 130 ML/MIN (>89); MAGNESIUM 2.1 MG/DL (1.5-2.5); SODIUM (NA) 137 MEQ/L (136-145)
[2016-11-27 09:22] LABS: POTASSIUM 3.8 MEQ/L (3.5-5.1)
[2016-11-27 09:23] LABS: ALKALINE PHOSPHATASE 109 U/L (45-117); FREE T4 1.51 NG/DL (0.76-1.46); TOTAL BILIRUBIN ADULT 2.1 MG/DL (0.2-1.0)
--- NOTE | 2016-11-27 11:56 | HHI.PR ---
Subjective Remarks Follow-up encephalopathy, sepsis/bacteremia. The patient is reporting right shoulder and neck pain. She states that she "fell back into something" yesterday. Denies chest pain or dyspnea. Objective Vitals Vital Signs Date Time Temp Pulse Resp B/P (MAP) Pulse Ox O2 Delivery O2 Flow Rate FiO2 11/27/16 08:00 99.6 89 18 140/72 (94) 99 11/27/16 05:02 80 11/27/16 04:51 99 Nasal Cannula 3.00 11/27/16 04:00 98.0 70 20 116/ 100 11/27/16 00:00 98.5 86 20 115/68 (84) 100 11/26/16 20:00 98.0 91 18 98/53 (68) 100 11/26/16 18:44 100.6 95 18 99/54 (69) 100 Nasal Cannula 4.00 11/26/16 16:23 102.9 102 18 110/60 (77) 100 Room Air 11/26/16 16:21 100 Nasal Cannula 4.00 11/26/16 14:03 111 18 93 Room Air 11/26/16 13:56 105.0 116 18 109/59 (76) 95 I/O 11/26/16 11/26/16 11/26/16 11/27/16 11/27/16 11/27/16 07:00 15:00 23:00 07:00 15:00 23:00 Intake Total 1250 ml 2519 ml Output Total 3200 ml Balance 1250 ml -681 ml Intake Oral 900 ml IV Total 1250 ml 1619 ml Output Urine Total 3200 ml # Voids 1 # Bowel Movements 0 Result Diagram: 11/27/16 0747 11/27/16 0747 Imaging Last Impressions Chest X-Ray 11/26/16 1400 Signed Impressions: Service Date/Time: Saturday, November 26, 2016 14:22 - CONCLUSION: Prominent cardiac silhouette without suspicious lung lesions. Austin Dang MD FACR Objective Remarks General: No acute distress. Appears older than stated age. Heart: Regular rate and rhythm. No murmur. Lungs: Clear to auscultation bilaterally. No wheezes, rales, or rhonchi. Breathing is nonlabored. Abdomen: Soft, nontender, nondistended. Extremities: No lower extremity edema. Psych: Alert and oriented. Procedures None Urinary Catheter: No Vascular Central Line Catheter: No A/P Problem List: (1) Amphetamine use disorder, severe, dependence ICD Code: F15.20 - Other stimulant dependence, uncomplicated Status: Acute (2) Abscess in epidural space of lumbar spine ICD Code: G06.1 - Intraspinal abscess and granuloma Status: Acute (3) Osteomyelitis of cervical spine ICD Code: M46.22 - Osteomyelitis of vertebra, cervical region Status: Acute (4) Neck abscess ICD Code: L02.11 - Cutaneous abscess of neck Status: Acute (5) Infectious endocarditis ICD Code: I33.0 - Acute and subacute infective endocarditis Status: Acute (6) Bacteremia ICD Code: R78.81 - Bacteremia Status: Acute (7) Fever ICD Code: R50.9 - Fever, unspecified Status: Acute (8) IV drug abuse ICD Code: F19.10 - Other psychoactive substance abuse, uncomplicated Status: Acute Assessment and Plan 1. Acute encephalopathy: Likely secondary to substance abuse, infection. Mental status seems to have improved. Continue telemetry monitoring. Urine drug screen positive for opiates and amphetamines. 2. Sepsis: Patient presented with a temperature of 105 as well as leukocytosis. Source of his bacteremia, cellulitis of left arm. Continue IV antibiotics. Infectious disease consult is pending. Blood cultures are positive for MRSA. 2 new IV fluids. 3. DVT prophylaxis: Lovenox. Oral Aguilar MD Nov 27, 2016 11:56
--- NOTE | 2016-11-27 15:37 | RADRPT ---
EXAM DATE/TIME: 11/27/2016 14:02 [facility] COMPARISON: CT CERVICAL SPINE W CONTRAST, June 21, 2016, 5:49. MRI CERVICAL SPINE W/O CONTRAST, May 14 17, 22:07. CT CERVICAL SPINE W/O CONTRAST, May 14, 2016, 23:21. SPINE CERVICAL LTD (AP&LAT), Melchor pril 2014, 1:47. CT CERVICAL SPINE W/O CONTRAST, September 03, 2016, 13:59. INDICATIONS : History of osteomyelitis and abscess in the cervical spine. Status post multilevel fusion. Patient co mplains of neck pain. MEDICAL HISTORY : Cardiovascular disease. Hypertension. SURGICAL HISTORY : Fusion, cervical. Neuropathy. Abscess removed upper back. ENCOUNTER: Subsequent ACUITY: >1 year PAIN SCORE: 10/10 LOCATION: c-spine FINDINGS: AP, lateral and oblique views of the cervical spine were obtained and again demonstrate that the jake ent is status post remote fusion at the C4-5 level with screw plate fixation device. The patient is a lso status post remote fusion at the C6-7. Severe deformity of the C3 vertebral body is again noted w hich does not appear significantly changed from the prior CT. Severe kyphosis is noted at this level with close to 90 of angulation. There is deformity of the inferior portion of the C2 vertebral body with hypertrophic change and or soft tissue calcification located anterior to the screw-plate fixatio n device at C4. The kyphosis appears mildly increased compared to the prior CT. There is no acute fra cture. The prevertebral soft tissues appear within normal limits. The dens is intact. CONCLUSION: 1. Severe kyphosis centered at the C3 level approaching 90 which is mildly increased from the prior study. There is increased deformity of the inferior aspect of C2 with hypertrophic change and or soft tissue calcification. 2. Stable appearing deformity of the C3 vertebral body. 3. 4. Status post remote fusion of the C4-5 and C6-7 levels. Reginald Michelle MD on November 27, 2016 at 15: 5. 26 Board Certified Radiologist. This report was verified electronically.
--- NOTE | 2016-11-27 16:47 | PD.ID.CON ---
History of Present Illness Service ID Consult Requested By Justice Barajas Reason for Consult sepsis Primary Care Physician Unknown Diagnoses: History of Present Illness Pt is known to me SHe is active IV drug abuser she developped severe kyphosis 2/2 cervical spine osteomyelitsi She also has a h/o L spine abscess She is a pt of Dr Wang She awas on IV abx , but it was stopped 2/2 lack of housing for pt pt presented yday with fever of 105 All blood are + for MRSA Cervical Spine X-Ray showed Severe kyphosis centered at the C3 level approaching 90 which is mildly increased from the prior study. 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 Depression Past Surgical History Evacuation retro-pharyngeal and anterior cervical abscess Evacuation lumbar spinal abscesses Active Ordered Medications Medications where reviewed in EMR Antibiotics Include: cefepime vancomycin Family History Lung and breast cancer Social History IV drug abuse Tobacco abuse No alcohol Physical Exam Vital Signs Vital Signs Date Time Temp Pulse Resp B/P (MAP) Pulse Ox O2 Delivery O2 Flow Rate FiO2 11/27/16 16:00 98.5 87 16 115/65 (82) 95 11/27/16 12:00 98.4 88 16 121/62 (81) 99 11/27/16 08:00 99.6 89 18 140/72 (94) 99 11/27/16 05:02 80 11/27/16 04:51 99 Nasal Cannula 3.00 11/27/16 04:00 98.0 70 20 116/ 100 11/27/16 00:00 98.5 86 20 115/68 (84) 100 11/26/16 20:00 98.0 91 18 98/53 (68) 100 11/26/16 18:44 100.6 95 18 99/54 (69) 100 Nasal Cannula 4.00 Physical Exam CONSTITUTIONAL/GENERAL: This is an adequately nourished patient, in no apparent distress. TUBES/LINES/DRAINS: SKIN: No jaundice, rashes, Multiple excoriated skin lesions arms, back Skin temperature appropriate. Not diaphoretic. HEAD: Atraumatic. Normocephalic. EYES: Pupils equal and round and reactive. Extraocular motions intact. No scleral icterus. No injection or drainage. Fundi not examined. ENT: Hearing grossly normal. Nose without bleeding or purulent drainage. Oral mucosae without visible erythema, exudates, masses, or lesions.Edentulous NECK: C collar in place CARDIOVASCULAR: Regular rate and rhythm without murmurs, gallops, or rubs. No JVD. Peripheral pulses symmetric. RESPIRATORY/CHEST: Symmetric, unlabored respirations. Clear to auscultation. Breath sounds equal bilaterally. No wheezes, rales, or rhonchi. GASTROINTESTINAL: Abdomen soft, non-tender, nondistended. No hepato-splenomegaly , or palpable masses. No guarding. Bowel sounds present. GENITOURINARY: Without palpable bladder distension. MUSCULOSKELETAL: Extremities without clubbing, cyanosis, or edema. No joint tenderness or effusion noted. No calf tenderness. No mottling or clubbing. LYMPHATICS: No palpable cervical or supraclavicular adenopathy. NEUROLOGICAL: Awake and alert. Motor and sensory grossly within normal limits. Follows commands. Clear speech. Moves all extremities. PSYCHIATRIC: No obvious anxiety/depression. no apparent hallucinations or other psychotic thought process. Laboratory Laboratory Tests Test 11/27/16 07:47 White Blood Count 9.4 Red Blood Count 4.87 Hemoglobin 9.3 Hematocrit 29.5 Mean Corpuscular Volume 60.6 Mean Corpuscular Hemoglobin 19.2 Mean Corpuscular Hemoglobin Concent 31.7 Red Cell Distribution Width 17.3 Platelet Count 165 Mean Platelet Volume 8.9 Neutrophils (%) (Auto) 81.2 Lymphocytes (%) (Auto) 10.9 Monocytes (%) (Auto) 7.0 Eosinophils (%) (Auto) 0.6 Basophils (%) (Auto) 0.3 Neutrophils # (Auto) 7.7 Lymphocytes # (Auto) 1.0 Monocytes # (Auto) 0.7 Eosinophils # (Auto) 0.1 Basophils # (Auto) 0.0 CBC Comment DIFF FINAL Differential Comment Blood Urea Nitrogen 11 Creatinine 0.51 Random Glucose 74 Total Protein 7.5 Albumin 2.4 Calcium Level 8.4 Phosphorus Level 1.8 Magnesium Level 2.1 Alkaline Phosphatase 109 Aspartate Amino Transf (AST/SGOT) 55 Alanine Aminotransferase (ALT/SGPT) 30 Total Bilirubin 2.1 Sodium Level 137 Potassium Level 3.8 Chloride Level 104 Carbon Dioxide Level 24.0 Anion Gap 9 Estimat Glomerular Filtration Rate 130 Free Thyroxine 1.51 Thyroid Stimulating Hormone 3rd Gen 2.080 Date/Time Source Procedure Growth Status 11/26/16 14:45 Blood Peripheral Aerobic Blood Culture - Preliminary S. Aureus Mrsa Resulted 11/26/16 14:45 Anaerobic Blood Culture - Preliminary Gram Positive Cocci Resulted 11/26/16 14:20 Urine Clean Catch Urine Culture - Preliminary NO GROWTH IN 24 HOURS. Resulted Result Diagram: 11/27/16 0747 11/27/16 0747 Imaging Last Impressions Cervical Spine X-Ray 11/27/16 0000 Signed Impressions: Service Date/Time: October 14:02 - CONCLUSION: 1. Severe kyphosis centered at the C3 level approaching 90 which is mildly increased from the prior study. There is increased deformity of the inferior aspect of C2 with hypertrophic change and or soft tissue calcification. 2. Stable appearing deformity of the C3 vertebral body. 3. 4. Status post remote fusion of the C4- 5 and C6-7 levels. Reginald Michelle MD Chest X-Ray 11/26/16 1400 Signed Impressions: Service Date/Time: Saturday, November 26, 2016 14:22 - CONCLUSION: Prominent cardiac silhouette without suspicious lung lesions. Austin Dang MD FACR Assessment and Plan Assessment and Plan IVDU C spine osteomyelitis TV endocarditis preiously both MRSA, MSSA Presents with MRSA sepsis cont vancomycin dc cefepime 2 D echo further rec's to follow Dina Carlos MD Nov 27, 2016 16:47
[2016-11-27 17:18] LABS: HEMOGLOBIN A1a 1.7 %; HEMOGLOBIN A1b 0.7 %; HEMOGLOBIN Ao 73.5 %; HEMOGLOBIN F 4.3 %; HEMOGLOBIN LA1C 1.5 %; HEMOGLOBIN P3 3.4 %
[2016-11-27] MEDS: ENOXAPARIN SODIUM 40 MG/0.4 ML SYRINGE SQ SCH (20:50)
[2016-11-27] MEDS: LORazepam 2 MG/ML VIAL IV PUSH PRN (20:51)
[2016-11-27] MEDS: oxyCODONE/ACETAMINOPHEN 7.5 MG/325 MG TAB PO PRN (23:06)
[2016-11-28] VITALS (9 sets, daily range): BP systolic 137–156; BP diastolic 73–84; PULSE 88–96; RESP 16–18; TEMP 97.4–99.3; O2SAT 96–98
[2016-11-28] MEDS ORDERED: PHARMACY ORDERED LAB ONE ×2 (02:45→14:45)
[2016-11-28] MEDS: oxyCODONE/ACETAMINOPHEN 7.5 MG/325 MG TAB PO PRN ×5 (03:08→22:11)
[2016-11-28] MEDS: LORazepam 2 MG/ML VIAL IV PUSH PRN (03:09)
[2016-11-28] MEDS: VANCOMYCIN INJ 900 MG in SODIUM CHLOR 0.9% 250 ML INJ 250 ML IV SCH (03:26)
[2016-11-28] MEDS: SODIUM CHLOR 0.9% 1000 ML INJ 1,000 ML IV SCH (03:26)
[2016-11-28] MEDS: REMOVE OLD PATCH T-DERMAL SCH (09:00)
[2016-11-28] MEDS: DOCUSATE SODIUM 100 MG CAP PO SCH ×2 (10:22→21:59)
[2016-11-28] MEDS: RIFAMPIN 150 MG CAP PO SCH ×2 (10:22→21:59)
[2016-11-28] MEDS: VENLAFAXINE HCL XR 37.5 MG CAP PO SCH (10:22)
[2016-11-28] MEDS: NICOTINE 14 MG/24 HR PATCH T-DERMAL SCH (10:22)
[2016-11-28] MEDS: CETIRIZINE HCL 10 MG TAB PO SCH (10:40)
[2016-11-28 11:06] LABS: HEMATOCRIT 26.8 % (35.0-46.0); MEAN CELL VOLUME 59.7 FL (80.0-100.0); MEAN CORPUSCULAR HEMOGLOBIN 19.7 PG (27.0-34.0); MEAN CORPUSCULAR HGB CONC 33.1 % (32.0-36.0); PLATELET COUNT 224 TH/MM3 (150-450); RED BLOOD COUNT 4.49 MIL/MM3 (4.00-5.30); RED CELL DISTRIBUTION WIDTH 17.4 % (11.6-17.2); WHITE BLOOD COUNT 8.8 TH/MM3 (4.0-11.0)
[2016-11-28 11:08] LABS: HEMO FLAGS AUTO DIFF
[2016-11-28 11:22] LABS: BICARBONATE 26.7 MEQ/L (21.0-32.0)
[2016-11-28 11:32] LABS: POTASSIUM 2.8 MEQ/L (3.5-5.1)
[2016-11-28 11:35] LABS: BANDS 2 % (0-6); EOSINOPHILS 2 % (0-4); NEUTROPHIL # MANUAL DIFF 6.9 TH/MM3 (1.8-7.7); POLYS (SEG NEUTROPHILS) 76 % (16-70); WBC DIFF SAMPLE 100
[2016-11-28 11:40] LABS: ACANTHOCYTES OCC (NORMAL); HELMET CELLS OCC (NORMAL); OVALOCYTES 1+ (NORMAL); SCAN/DIFF FINAL DIFF MANUAL
--- NOTE | 2016-11-28 11:40 | EKG ---
Date Performed: 11/26/2016 Time Performed: 14:02:04 PTAGE: 46 years EKG: SINUS TACHYCARDIA LVH WITH REPOLARIZATION CHANGES, NEW SINCE PRIOR TRACING ABNORMAL ECG PREVIOUS TRACING : 05/17/2016 02.56 DOCTOR: Matteo Louis Interpretating Date/Time 11/28/2016 11:38:39
[2016-11-28] MEDS: POTASSIUM CHLOR 20 MEQ PREMIX 100 ML IV SCH ×2 (14:11→17:17)
[2016-11-28] MEDS: LORazepam 0.5 MG TAB PO PRN ×2 (14:11→22:11)
--- NOTE | 2016-11-28 14:51 | HHI.PR ---
Subjective Remarks Follow-up bacteremia, neck pain. The patient continues to report significant pain in her neck. Her nurse states that she is sleeping much of the time and wakes up to request Ativan and pain medication. Otherwise she appears to be comfortable. Denies chest pain or dyspnea. No nausea or vomiting. Objective Vitals Vital Signs Date Time Temp Pulse Resp B/P (MAP) Pulse Ox O2 Delivery O2 Flow Rate FiO2 11/28/16 12:13 97.4 91 18 156/84 (108) 98 11/28/16 10:55 88 11/28/16 08:21 98.5 96 18 137/79 (98) 96 11/28/16 04:42 98.6 92 18 144/81 (102) 96 11/28/16 00:53 98.1 89 16 137/73 (94) 96 11/27/16 21:54 21 11/27/16 21:23 98.8 90 16 135/66 (89) 97 11/27/16 20:30 93 11/27/16 16:00 98.5 87 16 115/65 (82) 95 I/O 11/27/16 11/27/16 11/27/16 11/28/16 11/28/16 11/28/16 07:00 15:00 23:00 07:00 15:00 23:00 Intake Total 2519 ml Output Total 3200 ml 800 ml Balance -681 ml -800 ml Intake Oral 900 ml IV Total 1619 ml Output Urine Total 3200 ml 800 ml # Voids 1 1 5 # Bowel Movements 0 0 Result Diagram: 11/28/16 0931 11/28/16 0931 Imaging Last Impressions Cervical Spine X-Ray 11/27/16 0000 Signed Impressions: Service Date/Time: October 14:02 - CONCLUSION: 1. Severe kyphosis centered at the C3 level approaching 90 which is mildly increased from the prior study. There is increased deformity of the inferior aspect of C2 with hypertrophic change and or soft tissue calcification. 2. Stable appearing deformity of the C3 vertebral body. 3. 4. Status post remote fusion of the C4- 5 and C6-7 levels. Reginald Michelle MD Chest X-Ray 11/26/16 1400 Signed Impressions: Service Date/Time: Saturday, November 26, 2016 14:22 - CONCLUSION: Prominent cardiac silhouette without suspicious lung lesions. Austin Dang MD FACR Objective Remarks General: No acute distress. Appears older than stated age. Heart: Regular rate and rhythm. No murmur. Lungs: Clear to auscultation bilaterally. No wheezes, rales, or rhonchi. Breathing is nonlabored. Abdomen: Soft, nontender, nondistended. Extremities: No lower extremity edema. Psych: Sleeping, but awakens to voice and answers questions appropriately. Procedures None Urinary Catheter: No Vascular Central Line Catheter: No A/P Problem List: (1) Amphetamine use disorder, severe, dependence ICD Code: F15.20 - Other stimulant dependence, uncomplicated Status: Acute (2) Abscess in epidural space of lumbar spine ICD Code: G06.1 - Intraspinal abscess and granuloma Status: Acute (3) Osteomyelitis of cervical spine ICD Code: M46.22 - Osteomyelitis of vertebra, cervical region Status: Acute (4) Neck abscess ICD Code: L02.11 - Cutaneous abscess of neck Status: Acute (5) Infectious endocarditis ICD Code: I33.0 - Acute and subacute infective endocarditis Status: Acute (6) Bacteremia ICD Code: R78.81 - Bacteremia Status: Acute (7) Fever ICD Code: R50.9 - Fever, unspecified Status: Acute (8) IV drug abuse ICD Code: F19.10 - Other psychoactive substance abuse, uncomplicated Status: Acute Assessment and Plan 1. Acute encephalopathy: Likely secondary to substance abuse, infection. Mental status seems to have improved. Continue telemetry monitoring. Urine drug screen positive for opiates and amphetamines. 2. Sepsis: Patient presented with a temperature of 105 as well as leukocytosis. Source is bacteremia, cellulitis of left arm, possible ongoing cervical spine osteomyelitis. Continue IV antibiotics. Appreciate infectious disease recommendations. Blood cultures are positive for MRSA. Continue IV fluids. 3. DVT prophylaxis: Lovenox. Repeat blood cultures are negative so far. 4. Cervical spine osteomyelitis: Diagnosed July 2016. Patient was evaluated by neurosurgery at that time. Continue cervical collar. We'll request neurosurgery evaluation. 5. Hypokalemia: Supplement potassium. Monitor labs. Oral Aguilar MD Nov 28, 2016 14:51
[2016-11-28] MEDS: NS + KCL 20 MEQ INJ 1,000 ML IV SCH (17:15)
[2016-11-28] MEDS: SODIUM CHLORIDE 0.9% FLUSH 10 ML FLUSH IV FLUSH SCH (21:00)
[2016-11-28] MEDS: ENOXAPARIN SODIUM 40 MG/0.4 ML SYRINGE SQ SCH (22:00)
[2016-11-28] MEDS: VANCOMYCIN INJ 750 MG in SODIUM CHLOR 0.9% 250 ML INJ 250 ML IV SCH (23:26)
[2016-11-29] MEDS: oxyCODONE/ACETAMINOPHEN 7.5 MG/325 MG TAB PO PRN ×4 (02:33→18:46)
[2016-11-29] MEDS: LORazepam 0.5 MG TAB PO PRN ×4 (02:38→18:46)
[2016-11-29] MEDS: NS + KCL 20 MEQ INJ 1,000 ML IV SCH (02:55)
[2016-11-29 05:49] VITALS: BP 136/79; PULSE 102; RESP 20; TEMP 98.6; O2SAT 98
[2016-11-29] MEDS: VANCOMYCIN INJ 750 MG in SODIUM CHLOR 0.9% 250 ML INJ 250 ML IV SCH ×2 (05:55→17:31)
[2016-11-29] MEDS: RIFAMPIN 150 MG CAP PO SCH ×2 (07:58→21:26)
[2016-11-29] MEDS: CETIRIZINE HCL 10 MG TAB PO SCH (07:58)
[2016-11-29] MEDS: DOCUSATE SODIUM 100 MG CAP PO SCH ×2 (07:58→21:00)
[2016-11-29] MEDS: VENLAFAXINE HCL XR 37.5 MG CAP PO SCH (07:58)
[2016-11-29] MEDS: SODIUM CHLORIDE 0.9% FLUSH 10 ML FLUSH IV FLUSH SCH ×2 (07:59→21:00)
[2016-11-29 08:00] VITALS: BP 127/61; PULSE 94; RESP 17; TEMP 97.8; O2SAT 96
[2016-11-29] MEDS: REMOVE OLD PATCH T-DERMAL SCH (08:00)
[2016-11-29] MEDS: NICOTINE 14 MG/24 HR PATCH T-DERMAL SCH (08:00)
[2016-11-29 10:22] LABS: BICARBONATE 28.6 MEQ/L (21.0-32.0)
[2016-11-29 10:26] LABS: POTASSIUM 2.9 MEQ/L (3.5-5.1)
[2016-11-29 10:35] VITALS: PULSE 85
[2016-11-29 12:06] VITALS: BP 119/79; PULSE 96; RESP 19; TEMP 97.6; O2SAT 98
--- NOTE | 2016-11-29 12:39 | RADRPT ---
EXAM DATE/TIME: 11/29/2016 11:22 [facility] COMPARISON: CT CERVICAL SPINE W/O CONTRAST, September 03, 2016, 13:59. INDICATIONS : Neck pain; evaluate for osteomyelitis. RADIATION DOSE: 26.05 CTDIvol (mGy) MEDICAL HISTORY : Cardiovascular disease. Osteomylitis of cervical spine. SURGICAL HISTORY : Fusion, cervical. ENCOUNTER: Initial ACUITY: 1 day PAIN SCALE: 6/10 LOCATION: Bilateral neck TECHNIQUE: Volumetric scanning of the cervical spine was performed. Multiplanar reconstructions in the sagittal, coronal and oblique axial planes were performed. Using automated exposure control and adjustment o f the mA and/or kV according to patient size, radiation dose was kept as low as reasonably achievable to obtain optimal diagnostic quality images. DICOM format image data is available electronically f or review and comparison. FINDINGS: Extensive angulation persist from skull base to C4 were stat the C3-C4 level. Previous fusion is see n at C4-C5. The C3 vertebral body remains the small wedge-shaped remnant of bone. Bone sclerosis is present in C4 and C5 that is fused via plate. The sclerosis is seen in C6 and part ially in CC and which is partially fused. Overall the spinal canal appears adequate. Across the sharply angulated segment the bony canal measu res 12 mm. There is very minimal air seen anteriorly to C7 present on the previous study and unchanged. There is no abnormal paravertebral soft tissue mass. CONCLUSION: Stable changes when compared to 09/03/16. Spinal canal still remains adequate. Its difficult to assess the intra-and extradural components. A SPECT tagged white cell study with 3-D reconstructions could offer more information if continued in fection is suspected. Austin Dang MD FACR on November 29, 2016 at 12:34 Board Certified Radiologist. This report was verified electronically.
--- NOTE | 2016-11-29 13:34 | HHI.PR ---
Subjective Remarks Follow up neck pain, bacteremia. Patient complaining of ongoing neck pain. No other complaints at this time. Objective Vitals Vital Signs Date Time Temp Pulse Resp B/P (MAP) Pulse Ox O2 Delivery O2 Flow Rate FiO2 11/29/16 12:06 97.6 96 19 119/79 (92) 98 11/29/16 10:35 85 11/29/16 08:00 97.8 94 17 127/61 (83) 96 11/29/16 05:49 98.6 102 20 136/79 (98) 98 11/29/16 03:22 16 11/28/16 23:38 94 18 148/74 (98) 96 11/28/16 22:17 96 11/28/16 20:51 97.8 91 18 153/82 (105) 97 11/28/16 18:08 21 11/28/16 15:54 99.3 91 18 137/75 (95) 97 I/O 11/28/16 11/28/16 11/28/16 11/29/16 11/29/16 11/29/16 06:59 14:59 22:59 06:59 14:59 22:59 Intake Total 480 ml 3100 ml 240 ml Balance 480 ml 3100 ml 240 ml Intake Oral 480 ml 240 ml IV Total 3100 ml # Voids 5 6 5 # Bowel Movements 0 1 Result Diagram: 11/28/16 0931 11/29/16 0937 Imaging Last Impressions Cervical Spine CT 11/28/16 0000 Signed Impressions: Service Date/Time: Tuesday, November 29, 2016 11:22 - CONCLUSION: Stable changes when compared to 09/03/16. Spinal canal still remains adequate. Its difficult to assess the intra-and extradural components. A SPECT tagged white cell study with 3-D reconstructions could offer more information if continued infection is suspected. Austin Dang MD FACR Cervical Spine X-Ray 11/27/16 0000 Signed Impressions: Service Date/Time: October 14:02 - CONCLUSION: 1. Severe kyphosis centered at the C3 level approaching 90 which is mildly increased from the prior study. There is increased deformity of the inferior aspect of C2 with hypertrophic change and or soft tissue calcification. 2. Stable appearing deformity of the C3 vertebral body. 3. 4. Status post remote fusion of the C4- 5 and C6-7 levels. Reginald Michelle MD Chest X-Ray 11/26/16 1400 Signed Impressions: Service Date/Time: Saturday, November 26, 2016 14:22 - CONCLUSION: Prominent cardiac silhouette without suspicious lung lesions. Austin Dang MD FACR Objective Remarks Examined in the presence of the nurse. General: No acute distress. Appears older than stated age. In cervical collar. Heart: Regular rate and rhythm. No murmur. Lungs: Clear to auscultation bilaterally. No wheezes, rales, or rhonchi. Breathing is nonlabored. Abdomen: Soft, nontender, nondistended. Extremities: No lower extremity edema. Psych: Alert, oriented. Does appear to become drowsy at times during exam. Procedures None Urinary Catheter: No Vascular Central Line Catheter: No A/P Problem List: (1) Amphetamine use disorder, severe, dependence ICD Code: F15.20 - Other stimulant dependence, uncomplicated Status: Acute (2) Abscess in epidural space of lumbar spine ICD Code: G06.1 - Intraspinal abscess and granuloma Status: Acute (3) Osteomyelitis of cervical spine ICD Code: M46.22 - Osteomyelitis of vertebra, cervical region Status: Acute (4) Neck abscess ICD Code: L02.11 - Cutaneous abscess of neck Status: Acute (5) Infectious endocarditis ICD Code: I33.0 - Acute and subacute infective endocarditis Status: Acute (6) Bacteremia ICD Code: R78.81 - Bacteremia Status: Acute (7) Fever ICD Code: R50.9 - Fever, unspecified Status: Acute (8) IV drug abuse ICD Code: F19.10 - Other psychoactive substance abuse, uncomplicated Status: Acute Assessment and Plan 1. Acute encephalopathy: Likely secondary to substance abuse, infection. Mental status seems to have improved. Continue telemetry monitoring. Urine drug screen positive for opiates and amphetamines. 2. Sepsis: Patient presented with a temperature of 105 as well as leukocytosis. Source is bacteremia, cellulitis of left arm, possible ongoing cervical spine osteomyelitis. Continue IV antibiotics. Appreciate infectious disease recommendations. Blood cultures are positive for MRSA. Continue IV fluids. 3. DVT prophylaxis: Lovenox. Repeat blood cultures are negative so far. 4. Cervical spine osteomyelitis: Diagnosed July 2016. Patient was evaluated by neurosurgery at that time. Continue cervical collar. Neurosurgery consult pending. CT cervical spine noted. 5. Hypokalemia: Supplement potassium. Monitor labs. Oral Aguilar MD Nov 29, 2016 13:33
[2016-11-29] MEDS ORDERED: PHARMACY ORDERED LAB ONE (13:45)
[2016-11-29] MEDS ORDERED: POTASSIUM CHLOR 20 MEQ PREMIX 100 ML IV SCH (14:00)
[2016-11-29] MEDS: POTASSIUM CHLORIDE 20 MEQ CONTROLLED RELEASE TAB PO SCH ×2 (14:26→21:26)
[2016-11-29 16:00] VITALS: BP 154/72; PULSE 91; RESP 19; TEMP 98; O2SAT 96
[2016-11-29] MEDS ORDERED: GADODIAMIDE PF 287 MG/ML 10 ML VIAL (for RAD MRI) IVCONTRAST ONE (17:01)
--- NOTE | 2016-11-29 17:23 | RADRPT ---
EXAM DATE/TIME: 11/29/2016 16:40 [facility] COMPARISON: MRI CERVICAL SPINE W & W/O CONTRAST, August 06, 2016, 8:06. INDICATIONS : Neck pain. CONTRAST: ?10 cc Omniscan (gadodiamide) IV MEDICAL HISTORY : Polysubstance abuse. SURGICAL HISTORY : Fusion, cervical. ENCOUNTER: Initial ACUITY: 1 day PAIN SCORE: 5/10 LOCATION: neck TECHNIQUE: Multiplanar, multisequence MRI examination of the cervical spine was performed. FINDINGS: Followup CT scan when stable. Marked angulation is present. Signal intensity in the cervical cord is normal. Anterior thecal sac is obliterated and at the C3 and C4 levels but is maintained posteriorly. There is no abnormal contrast enhancement to suggest to persist inflammatory process. At C6-C7 there is persistent interspace ridging causing some flattening of the anterior thecal space. Cerebellum is unremarkable. CONCLUSION: Substantial improvement when compared to 08/06/16 substantial decrease in the amount of enhancement. Ceretec tagged white cell study may be of benefit to exclude residual inflammatory focus. Austin Dang MD FACR on November 29, 2016 at 17:18 Board Certified Radiologist. This report was verified electronically.
--- NOTE | 2016-11-29 17:44 | HHI.IDPN ---
Subjective Subjective Remarks pt is afebrile repeat blood cultures are negative no fever C spine MRI showed Substantial improvement when compared to 08/06/16 substantial decrease in the amount of enhancement. Antibiotics vancomycin Allergies: Coded Allergies: penicillin G (Unverified Allergy, Intermediate, Rash, 11/12/16) Has taken Keflex without any problem Uncoded Allergies: chemical allergy (Allergy, Severe, anaphalactic, 09/27/12) Objective . Vital Signs Date Time Temp Pulse Resp B/P (MAP) Pulse Ox O2 Delivery O2 Flow Rate FiO2 11/29/16 16:00 98.0 91 19 154/72 (99) 96 11/29/16 12:06 97.6 96 19 119/79 (92) 98 11/29/16 10:35 85 11/29/16 08:00 97.8 94 17 127/61 (83) 96 11/29/16 05:49 98.6 102 20 136/79 (98) 98 11/29/16 03:22 16 11/28/16 23:38 94 18 148/74 (98) 96 11/28/16 22:17 96 11/28/16 20:51 97.8 91 18 153/82 (105) 97 11/28/16 18:08 21 11/29/16 11/29/16 11/30/16 15:00 23:00 07:00 Intake Total 240 ml Balance 240 ml Intake Oral 240 ml # Voids 3 . Laboratory Tests Test 11/28/16 09:31 White Blood Count 8.8 TH/MM3 Red Blood Count 4.49 MIL/MM3 Hemoglobin 8.9 GM/DL Hematocrit 26.8 % Mean Corpuscular Volume 59.7 FL Mean Corpuscular Hemoglobin 19.7 PG Mean Corpuscular Hemoglobin Concent 33.1 % Red Cell Distribution Width 17.4 % Platelet Count 224 TH/MM3 Mean Platelet Volume 8.9 FL CBC Comment AUTO DIFF Differential Total Cells Counted 100 Neutrophils % (Manual) 76 % Band Neutrophils % 2 % Lymphocytes % 15 % Monocytes % 5 % Eosinophils % 2 % Neutrophils # (Manual) 6.9 TH/MM3 Differential Comment FINAL DIFF MANUAL Ovalocytes 1+ Helmet Cells OCC Acanthocytes OCC Laboratory Tests Test 11/28/16 09:31 11/29/16 09:37 Blood Urea Nitrogen 6 MG/DL 1 MG/DL Creatinine 0.39 MG/DL 0.38 MG/DL Random Glucose 101 MG/DL 123 MG/DL Calcium Level 8.3 MG/DL 8.5 MG/DL Sodium Level 136 MEQ/L 135 MEQ/L Potassium Level 2.8 MEQ/L 2.9 MEQ/L Chloride Level 101 MEQ/L 99 MEQ/L Carbon Dioxide Level 26.7 MEQ/L 28.6 MEQ/L Anion Gap 8 MEQ/L 7 MEQ/L Estimat Glomerular Filtration Rate 178 ML/MIN 183 ML/MIN Microbiology Date/Time Source Procedure Growth Status 11/27/16 20:44 Blood Peripheral Aerobic Blood Culture - Preliminary NO GROWTH IN 2 DAYS Resulted 11/27/16 20:44 Blood Peripheral Anaerobic Blood Culture - Preliminary NO GROWTH IN 2 DAYS Resulted 11/27/16 20:44 Blood Peripheral Aerobic Blood Culture - Preliminary NO GROWTH IN 2 DAYS Resulted 11/27/16 20:44 Blood Peripheral Anaerobic Blood Culture - Preliminary NO GROWTH IN 2 DAYS Resulted Imaging Last Impressions Cervical Spine MRI 11/29/16 0000 Signed Impressions: Service Date/Time: Tuesday, November 29, 2016 16:40 - CONCLUSION: Substantial improvement when compared to 08/06/16 substantial decrease in the amount of enhancement. Ceretec tagged white cell study may be of benefit to exclude residual inflammatory focus. Austin Dang MD FACR Cervical Spine CT 11/28/16 0000 Signed Impressions: Service Date/Time: Tuesday, November 29, 2016 11:22 - CONCLUSION: Stable changes when compared to 09/03/16. Spinal canal still remains adequate. Its difficult to assess the intra-and extradural components. A SPECT tagged white cell study with 3-D reconstructions could offer more information if continued infection is suspected. Austin Dang MD FACR Cervical Spine X-Ray 11/27/16 0000 Signed Impressions: Service Date/Time: October 14:02 - CONCLUSION: 1. Severe kyphosis centered at the C3 level approaching 90 which is mildly increased from the prior study. There is increased deformity of the inferior aspect of C2 with hypertrophic change and or soft tissue calcification. 2. Stable appearing deformity of the C3 vertebral body. 3. 4. Status post remote fusion of the C4- 5 and C6-7 levels. Reginald Michelle MD Chest X-Ray 11/26/16 1400 Signed Impressions: Service Date/Time: Saturday, November 26, 2016 14:22 - CONCLUSION: Prominent cardiac silhouette without suspicious lung lesions. Austin Dang MD FACR Physical Exam CONSTITUTIONAL/GENERAL: This is an adequately nourished patient, in no apparent distress. TUBES/LINES/DRAINS: SKIN: No jaundice, rashes, Multiple excoriated skin lesions arms, back Skin temperature appropriate. Not diaphoretic. EYES: Pupils equal and round and reactive. Extraocular motions intact. No scleral icterus. No injection or drainage. Fundi not examined. ENT: Hearing grossly normal. Nose without bleeding or purulent drainage. Oral mucosae without visible erythema, exudates, masses, or lesions.Edentulous NECK: C collar in place CARDIOVASCULAR: Regular rate and rhythm without murmurs, gallops, or rubs. No JVD. Peripheral pulses symmetric. RESPIRATORY/CHEST: Symmetric, unlabored respirations. Clear to auscultation. Breath sounds equal bilaterally. No wheezes, rales, or rhonchi. GASTROINTESTINAL: Abdomen soft, non-tender, nondistended. No hepato-splenomegaly , or palpable masses. No guarding. Bowel sounds present. GENITOURINARY: Without palpable bladder distension. MUSCULOSKELETAL: Extremities without clubbing, cyanosis, or edema. No joint tenderness or effusion noted. No calf tenderness. No mottling or clubbing. NEUROLOGICAL: Awake and alert. Motor and sensory grossly within normal limits. Follows commands. Clear speech. Moves all extremities. PSYCHIATRIC: No obvious anxiety/depression. no apparent hallucinations or other psychotic thought process. Assessment & Plan Remarks IVDU C spine osteomyelitis, radiologically improved - pt is neurologically intact TV endocarditis preiously both MRSA, MSSA Presents with MRSA sepsis, source is either from C spiine or recuretn endocarditis cont vancomycin 2 D echo to evaluate to endocarditis - if negative will get Ceretec - will add rifampin in case of Cspine infx dw Dina Mac MD Nov 29, 2016 17:44
--- NOTE | 2016-11-29 20:46 | PD.CONS ---
History of Present Illness Service Neurosurgery Consult Requested By Medicine service Reason for Consult Cervical osteomyelitis Primary Care Physician Unknown Diagnoses: History of Present Illness Patient is a 46-year-old female known to the undersigned. She has had numerous [facility] admissions for lumbar epidural abscess and cervical osteomyelitis. She is a known chronic IV drug abuser. She states that she had stopped using IV drugs for a while but had a "relapse" in the past week or 2. She has apparently not had a place to live. She previously presented to the hospital inferior 2016 and underwent evacuation of a extensive retropharyngeal neck abscess adjacent to previously placed anterior cervical instrumentation on . She subsequently underwent a left L1-2 and left L5-S1 semi-laminectomy evacuation of epidural and intradural abscess [facility] 05[facility] She initially was to be discharged on IV vancomycin. She did not remain on a consistent course of intravenous antibiotic therapy following her discharged and was lost to follow-up for an extended period of time. She returned back in late May 2016 with follow-up cervical spine imaging study revealing development of osteomyelitis at the anterior C3 vertebral body. Subsequent imaging studies revealed progressive loss of height of the C3 vertebral body with development of severe kyphosis and collapse of the C3 body. She now complains of persistent neck pain. She denies any pain weakness or numbness in the extremities or difficulty with ambulation. Review of Systems Constitutional: COMPLAINS OF: Fatigue, DENIES: Fever, Weight gain, Chills Eyes: DENIES: Diplopia Cardiovascular: DENIES: Chest pain Gastrointestinal: DENIES: Abdominal pain, Diarrhea, Nausea, Vomiting Musculoskeletal: COMPLAINS OF: Joint pain, Muscle aches, Stiffness, Back pain, Neck pain Hematologic/lymphatic: DENIES: Bruising Neurologic: DENIES: Abnormal gait, Headache, Localized weakness, Paresthesias Psychiatric: DENIES: Anxiety, Confusion Past Family Social History Allergies: Coded Allergies: penicillin G (Unverified Allergy, Intermediate, Rash, 11/12/16) Has taken Keflex without any problem Uncoded Allergies: chemical allergy (Allergy, Severe, anaphalactic, 09/27/12) Past Medical History History of endocarditis, osteomyelitis, IV drug abuse Past Surgical History Surgeries as noted above. Reported Medications Reported Meds & Active Scripts Active Rifampin 150 Mg Cap 300 Mg PO Q12HR 80 Days Epinephrine Inj 1 Mg/Ml Inj 0.3 Mg SQ ONCE PRN Give with any signs of respiratory distress. Epinephrine Inj 1 Mg/Ml Inj 0.3 Mg IV PUSH ONCE PRN Solu-Cortef Inj (Hydrocortisone Sodium Succinate) 250 Mg Inj 250 Mg IV PUSH ONCE PRN Give over 30-60 seconds. Vancomycin Inj (Vancomycin HCl) 10 Gm Inj 1,250 Mg IV Q12HR 80 Days Cefazolin Inj (Cefazolin Sodium/Dextrose) 2 Gm/50 Ml Bagp 2 Gm IV Q8H 35 Days Effexor XR 24 HR (Venlafaxine HCl) 37.5 Mg Cap 37.5 Mg PO DAILY Oxycodone-Acetaminophen 5-325 mg Tab 1 Tab PO Q4H PRN Nicotine Patch (Nicotine) 14 Mg/24 Hr Patch 1 Patch T-DERMAL DAILY Dok (Docusate Sodium) 100 Mg Cap 100 Mg PO Q12H Cetirizine (Cetirizine HCl) 10 Mg Tab 10 Mg PO DAILY Social History IV drug abuse Has been recently homeless. States that she is going to get a condominium to live in. Physical Exam Vital Signs Vital Signs Date Time Temp Pulse Resp B/P (MAP) Pulse Ox O2 Delivery O2 Flow Rate FiO2 11/29/16 16:00 98.0 91 19 154/72 (99) 96 11/29/16 12:06 97.6 96 19 119/79 (92) 98 11/29/16 10:35 85 11/29/16 08:00 97.8 94 17 127/61 (83) 96 11/29/16 05:49 98.6 102 20 136/79 (98) 98 11/29/16 03:22 16 11/28/16 23:38 94 18 148/74 (98) 96 11/28/16 22:17 96 11/28/16 20:51 97.8 91 18 153/82 (105) 97 Physical Exam Patient is a somewhat disheveled-appearing lady, apparent overall poor nutritional status. She has multiple skin lesions throughout the upper and lower extremities, some appearing acutely or subacutely infectious, with a rather large somewhat ulcerative lesion over the left forearm. Respirations are clear and regular Cardiac exam is regular rhythm No significant extremity edema She is mildly to moderately lethargic. Speech is moderately slowed and dysarthric She answers simple questions appropriately and follows simple commands. Appears to have at least mild impairment of recent and remote memory. Poor judgment and insight No focal cranial nerve deficit No extremity sensorimotor deficit Ajith's response absent bilateral No ankle clonus Fine motor movements mildly impaired upper extremities Laboratory Laboratory Tests Test 11/29/16 09:37 11/29/16 13:45 Blood Urea Nitrogen 1 Creatinine 0.38 Random Glucose 123 Calcium Level 8.5 Sodium Level 135 Potassium Level 2.9 Chloride Level 99 Carbon Dioxide Level 28.6 Anion Gap 7 Estimat Glomerular Filtration Rate 183 Vancomycin Level Trough 8.6 Date/Time Source Procedure Growth Status 11/27/16 20:44 Blood Peripheral Aerobic Blood Culture - Preliminary NO GROWTH IN 2 DAYS Resulted 11/27/16 20:44 Blood Peripheral Anaerobic Blood Culture - Preliminary NO GROWTH IN 2 DAYS Resulted 11/26/16 14:20 Urine Clean Catch Urine Culture - Final NO GROWTH IN 48 HOURS. Complete Result Diagram: 11/28/16 0931 11/29/16 0937 Imaging 11/28/2016 CT scan and 11/29/2016 MRI scan images of the cervical spine have all been reviewed by the undersigned. The patient appears to be developing a spontaneous fusion anteriorly at the C3 4 level and posteriorly at the C2 3 level, with no significant increase in kyphosis compared to her prior study. The MRI scan reveals AP canal dimension approximately 7 mm at the C3 level. The cord is draped over the anterior kyphotic deformity, but there appears to be overall adequate spinal canal dimension for the cord to traverse. No definite abnormal signal intensity within the cord. Cervical Spine MRI 11/29/16 0000 Signed Impressions: Service Date/Time: Tuesday, November 29, 2016 16:40 - CONCLUSION: Substantial improvement when compared to 08/06/16 substantial decrease in the amount of enhancement. Ceretec tagged white cell study may be of benefit to exclude residual inflammatory focus. Austin Dang MD FACR Cervical Spine CT 11/28/16 0000 Signed Impressions: Service Date/Time: Tuesday, November 29, 2016 11:22 - CONCLUSION: Stable changes when compared to 09/03/16. Spinal canal still remains adequate. Its difficult to assess the intra-and extradural components. A SPECT tagged white cell study with 3-D reconstructions could offer more information if continued infection is suspected. Austin Dang MD FACR Cervical Spine X-Ray 11/27/16 0000 Signed Impressions: Service Date/Time: , November 27, 2016 14:02 - CONCLUSION: 1. Severe kyphosis centered at the C3 level approaching 90 which is mildly increased from the prior study. There is increased deformity of the inferior aspect of C2 with hypertrophic change and or soft tissue calcification. 2. Stable appearing deformity of the C3 vertebral body. 3. 4. Status post remote fusion of the C4- 5 and C6-7 levels. Reginald Michelle MD Chest X-Ray 11/26/16 1400 Signed Impressions: Service Date/Time: Saturday, November 26, 2016 14:22 - CONCLUSION: Prominent cardiac silhouette without suspicious lung lesions. Austin Dang MD FACR Assessment and Plan Assessment and Plan Impression: 1. Cervical spine CT scan and MRI images reveal relatively stable, albeit rather severe kyphotic deformity at the C3 level related to prior osteomyelitis. There is not evidence of cervical myelopathy on the basis of examination, symptoms, or imaging study. Plan: Findings were discussed with infectious disease. The patient continues to use IV drugs. She has positive blood cultures at this admission. It is felt that she will be high risk for further infection or failure of fusion in the event of attempted surgical correction of the cervical kyphosis. It appears that she is developing a spontaneous fusion at the previous cervical osteomyelitis region, and aside from further infection related to IV drug abuse , should be at relatively low risk for progressive neurologic deficit at this point. Therefore no further neurosurgical intervention is recommended at this time. Aravind Oliver MD Nov 29, 2016 20:45
[2016-11-29 20:50] VITALS: BP 87/50; PULSE 81; RESP 16; TEMP 97.5; O2SAT 93
[2016-11-29] MEDS: ENOXAPARIN SODIUM 40 MG/0.4 ML SYRINGE SQ SCH (21:27)
[2016-11-29] MEDS: POTASSIUM CHLOR 20 MEQ PREMIX 100 ML IV SCH (23:01)
[2016-11-30] VITALS (8 sets, daily range): BP systolic 82–158; BP diastolic 50–90; PULSE 62–96; RESP 17–20; TEMP 96.5–99.1; O2SAT 93–98
[2016-11-30] MEDS: oxyCODONE/ACETAMINOPHEN 5 MG/325 MG TAB PO PRN (02:35)
[2016-11-30] MEDS: NS + KCL 20 MEQ INJ 1,000 ML IV SCH ×3 (02:36→14:50)
[2016-11-30] MEDS: POTASSIUM CHLOR 20 MEQ PREMIX 100 ML IV SCH (02:37)
[2016-11-30] MEDS ORDERED: VANCOMYCIN INJ 750 MG in SODIUM CHLOR 0.9% 250 ML INJ 250 ML IV SCH (05:00)
[2016-11-30 08:19] LABS: AUTOMATED NEUTROPHIL # 2.4 TH/MM3 (1.8-7.7); BASOPHIL % 0.5 % (0.0-2.0); EOSINOPHIL # 0.5 TH/MM3 (0-0.4); EOSINOPHIL % 9.7 % (0.0-4.0); HEMO FLAGS DIFF FINAL; LYMPH % 30.9 % (9.0-44.0); LYMPHOCYTE # 1.5 TH/MM3 (1.0-4.8); MEAN CELL VOLUME 60.2 FL (80.0-100.0); MEAN CORPUSCULAR HGB CONC 31.5 % (32.0-36.0); MONO % 8.8 % (0.0-8.0); NEUT % 50.1 % (16.0-70.0); PLATELET COUNT 347 TH/MM3 (150-450); RED BLOOD COUNT 4.65 MIL/MM3 (4.00-5.30); RED CELL DISTRIBUTION WIDTH 17.2 % (11.6-17.2); WHITE BLOOD COUNT 4.8 TH/MM3 (4.0-11.0)
[2016-11-30] MEDS: VENLAFAXINE HCL XR 37.5 MG CAP PO SCH (09:00)
[2016-11-30] MEDS: SODIUM CHLORIDE 0.9% FLUSH 10 ML FLUSH IV FLUSH SCH ×2 (09:00→21:00)
[2016-11-30] MEDS: REMOVE OLD PATCH T-DERMAL SCH (09:00)
[2016-11-30] MEDS: NICOTINE 14 MG/24 HR PATCH T-DERMAL SCH (09:00)
[2016-11-30] MEDS: DOCUSATE SODIUM 100 MG CAP PO SCH ×2 (09:26→21:00)
[2016-11-30] MEDS: RIFAMPIN 150 MG CAP PO SCH ×2 (09:26→22:20)
[2016-11-30] MEDS: CETIRIZINE HCL 10 MG TAB PO SCH (09:27)
[2016-11-30] MEDS: POTASSIUM CHLORIDE 20 MEQ CONTROLLED RELEASE TAB PO SCH ×2 (09:27→22:19)
[2016-11-30] MEDS: oxyCODONE/ACETAMINOPHEN 7.5 MG/325 MG TAB PO PRN ×4 (09:53→22:20)
[2016-11-30] MEDS: LORazepam 0.5 MG TAB PO PRN (12:43)
[2016-11-30] MEDS ORDERED: PHARMACY ORDERED LAB ONE (13:45)
--- NOTE | 2016-11-30 13:59 | HHI.NSPN ---
History Chief Complaint: neck pain improving Interval History Patient is a 46-year-old [facility] She has had numerous [facility] admissions for lumbar epidural abscess and cervical osteomyelitis. She is a known chronic IV drug abuser. She states that she had stopped using IV drugs for a while but had a "relapse" in the past week or 2. She has apparently not had a place to live. She previously presented to the hospital inferior 2016 and underwent evacuation of a extensive retropharyngeal neck abscess adjacent to previously placed anterior cervical instrumentation on . She subsequently underwent a left L1-2 and left L5-S1 semi-laminectomy evacuation of epidural and intradural abscess [facility] 05[facility] She initially was to be discharged on IV vancomycin. She did not remain on a consistent course of intravenous antibiotic therapy following her discharged and was lost to follow-up for an extended period of time. She returned back in late May 2016 with follow-up cervical spine imaging study revealing development of osteomyelitis at the anterior C3 vertebral body. Subsequent imaging studies revealed progressive loss of height of the C3 vertebral body with development of severe kyphosis and collapse of the C3 body. She now complains of persistent neck pain. She denies any pain weakness or numbness in the extremities or difficulty with ambulation. 11/30/2016: Neck pain better today. She is more alert. She does state that she has had some intermittent paresthesias in the right hand. No difficulty with ambulation Exam Results Vital Signs Date Time Temp Pulse Resp B/P (MAP) Pulse Ox O2 Delivery O2 Flow Rate FiO2 11/30/16 12:55 98.9 93 19 158/82 (107) 93 11/28/16 18:08 21 11/27/16 04:51 Nasal Cannula 3.00 Physical Examination Awake and alert Speech clear and appropriate Mild to moderate diffuse neck tenderness Sensation intact by touch throughout the upper and lower extremities except for complaint of mild paresthesias right hand. Strength within normal limits all major flexion and extension groups upper and lower extremities Ajith's response absent bilateral No ankle clonus Lab, Micro, Other Results 11/29/2016 cervical spine MRI images reviewed with the patient. The study reveals no N C3-4 level kyphosis. The spinal cord is draped across the kyphotic mass, but no definite significant canal stenosis or abnormal signal intensity seen within the spinal cord. AP spinal canal dimension at the C3-4 level is approximately 7 mm Cervical Spine MRI 11/29/16 0000 Signed Impressions: Service Date/Time: Tuesday, November 29, 2016 16:40 - CONCLUSION: Substantial improvement when compared to 08/06/16 substantial decrease in the amount of enhancement. Ceretec tagged white cell study may be of benefit to exclude residual inflammatory focus. Austin Dang MD FACR Cervical Spine CT 11/28/16 0000 Signed Impressions: Service Date/Time: Tuesday, November 29, 2016 11:22 - CONCLUSION: Stable changes when compared to 09/03/16. Spinal canal still remains adequate. Its difficult to assess the intra-and extradural components. A SPECT tagged white cell study with 3-D reconstructions could offer more information if continued infection is suspected. Austin Dang MD FACR Cervical Spine X-Ray 11/27/16 0000 Signed Impressions: Service Date/Time: October 14:02 - CONCLUSION: 1. Severe kyphosis centered at the C3 level approaching 90 which is mildly increased from the prior study. There is increased deformity of the inferior aspect of C2 with hypertrophic change and or soft tissue calcification. 2. Stable appearing deformity of the C3 vertebral body. 3. 4. Status post remote fusion of the C4- 5 and C6-7 levels. Reginald Michelle MD Chest X-Ray 11/26/16 1400 Signed Impressions: Service Date/Time: Saturday, November 26, 2016 14:22 - CONCLUSION: Prominent cardiac silhouette without suspicious lung lesions. Austin Dang MD FACR Medical Decision Making Impression and Plan Impression: 1. C3 osteomyelitis with severe collapse of the vertebral body, significant kyphosis. The C2-4 levels now appear to be undergoing spontaneous fusion. 2. Sepsis 3. Chronic IV drug abuse Plan: Findings were discussed with the patient as well as with her primary care physician today. Due to spontaneous fusion and stability at the region of the kyphosis, no significant cervical myelopathy or radiculopathy, and adequately control pain symptoms as well as the patient's ongoing IV drug abuse with sepsis, it is not felt that surgical intervention is indicated at the present time. Signs and symptoms to watch for discussed with the patient. She is stable from a neurosurgical standpoint. She will be seen back as needed. Aravind Oliver MD Nov 30, 2016 13:59
--- NOTE | 2016-11-30 14:06 | HHI.PR ---
Subjective Remarks Follow up bacteremia, neck pain. Patient states that she feels a little better today. Still having neck pain. No chest pain or dyspnea. No nausea or vomiting. Objective Vitals Vital Signs Date Time Temp Pulse Resp B/P (MAP) Pulse Ox O2 Delivery O2 Flow Rate FiO2 11/30/16 12:55 98.9 93 19 158/82 (107) 93 11/30/16 08:00 96.5 96 17 149/80 (103) 95 11/30/16 04:31 98.3 69 17 102/57 (72) 94 11/30/16 02:16 98.0 87 19 122/69 (86) 11/30/16 00:03 97.2 74 18 82/50 (61) 93 11/29/16 20:50 97.5 81 16 87/50 (62) 93 11/29/16 16:00 98.0 91 19 154/72 (99) 96 I/O 11/29/16 11/29/16 11/29/16 11/30/16 11/30/16 11/30/16 07:00 15:00 23:00 07:00 15:00 23:00 Intake Total 240 ml 240 ml Balance 240 ml 240 ml Intake Oral 240 ml 240 ml # Voids 5 3 1 Result Diagram: 11/30/16 0743 11/29/16 0937 Imaging Last Impressions Cervical Spine MRI 11/29/16 0000 Signed Impressions: Service Date/Time: Tuesday, November 29, 2016 16:40 - CONCLUSION: Substantial improvement when compared to 08/06/16 substantial decrease in the amount of enhancement. Ceretec tagged white cell study may be of benefit to exclude residual inflammatory focus. Austin Dang MD FACR Cervical Spine CT 11/28/16 0000 Signed Impressions: Service Date/Time: Tuesday, November 29, 2016 11:22 - CONCLUSION: Stable changes when compared to 09/03/16. Spinal canal still remains adequate. Its difficult to assess the intra-and extradural components. A SPECT tagged white cell study with 3-D reconstructions could offer more information if continued infection is suspected. Austin Dang MD FACR Cervical Spine X-Ray 11/27/16 0000 Signed Impressions: Service Date/Time: October 14:02 - CONCLUSION: 1. Severe kyphosis centered at the C3 level approaching 90 which is mildly increased from the prior study. There is increased deformity of the inferior aspect of C2 with hypertrophic change and or soft tissue calcification. 2. Stable appearing deformity of the C3 vertebral body. 3. 4. Status post remote fusion of the C4- 5 and C6-7 levels. Reginald Michelle MD Chest X-Ray 11/26/16 1400 Signed Impressions: Service Date/Time: Saturday, November 26, 2016 14:22 - CONCLUSION: Prominent cardiac silhouette without suspicious lung lesions. Austin Dang MD FACR Objective Remarks General: No acute distress. Appears older than stated age. In cervical collar. Heart: Regular rate and rhythm. No murmur. Lungs: Clear to auscultation bilaterally. No wheezes, rales, or rhonchi. Breathing is nonlabored. Abdomen: Soft, nontender, nondistended. Extremities: No lower extremity edema. Psych: Alert, oriented. Procedures None Urinary Catheter: No Vascular Central Line Catheter: No A/P Problem List: (1) Amphetamine use disorder, severe, dependence ICD Code: F15.20 - Other stimulant dependence, uncomplicated Status: Acute (2) Abscess in epidural space of lumbar spine ICD Code: G06.1 - Intraspinal abscess and granuloma Status: Acute (3) Osteomyelitis of cervical spine ICD Code: M46.22 - Osteomyelitis of vertebra, cervical region Status: Acute (4) Neck abscess ICD Code: L02.11 - Cutaneous abscess of neck Status: Acute (5) Infectious endocarditis ICD Code: I33.0 - Acute and subacute infective endocarditis Status: Acute (6) Bacteremia ICD Code: R78.81 - Bacteremia Status: Acute (7) Fever ICD Code: R50.9 - Fever, unspecified Status: Acute (8) IV drug abuse ICD Code: F19.10 - Other psychoactive substance abuse, uncomplicated Status: Acute Assessment and Plan 1. Acute encephalopathy: Likely secondary to substance abuse, infection. Mental status seems as improved. Continue telemetry monitoring. Urine drug screen positive for opiates and amphetamines. 2. Sepsis: Patient presented with a temperature of 105 as well as leukocytosis. Source is bacteremia, cellulitis of left arm, possible ongoing cervical spine osteomyelitis. Continue IV antibiotics. Appreciate infectious disease recommendations. Blood cultures are positive for MRSA. Continue IV fluids. 3. DVT prophylaxis: Lovenox. Repeat blood cultures are negative so far. 4. Cervical spine osteomyelitis: Diagnosed July 2016. Patient was evaluated by neurosurgery at that time. Continue cervical collar. Appreciate neurosurgery recommendations. Discussed with Dr. Oliver. Patient is not a good surgical candidate at this time due to ongoing IV drug abuse and high infection risk. 5. Hypokalemia: Supplement potassium. Labs are pending today. Oral Aguilar MD Nov 30, 2016 14:06
[2016-11-30 14:26] LABS: BICARBONATE 29.8 MEQ/L (21.0-32.0); MAGNESIUM 1.8 MG/DL (1.5-2.5); POTASSIUM 4.2 MEQ/L (3.5-5.1); VANCOMYCIN TROUGH 8.6 MCG/ML (5.0-10.0)
[2016-11-30] MEDS: ENOXAPARIN SODIUM 40 MG/0.4 ML SYRINGE SQ SCH (22:19)
[2016-11-30] MEDS: VANCOMYCIN INJ 900 MG in SODIUM CHLOR 0.9% 250 ML INJ 250 ML IV SCH (22:21)
[2016-12-01 00:53] VITALS: BP 160/83; PULSE 74; RESP 20; TEMP 98; O2SAT 94
[2016-12-01] MEDS: LORazepam 0.5 MG TAB PO PRN ×2 (01:10→09:45)
[2016-12-01] MEDS: oxyCODONE/ACETAMINOPHEN 7.5 MG/325 MG TAB PO PRN ×5 (02:18→21:34)
[2016-12-01 05:01] VITALS: BP 171/100; PULSE 86; RESP 20; TEMP 98.4; O2SAT 98
[2016-12-01] MEDS: VANCOMYCIN INJ 900 MG in SODIUM CHLOR 0.9% 250 ML INJ 250 ML IV SCH ×3 (05:05→21:32)
[2016-12-01] MEDS ORDERED: cloNIDine HCL 0.1 MG TAB PO ONE (06:00)
[2016-12-01 08:20] VITALS: BP 164/97; PULSE 82; RESP 18; TEMP 98.3; O2SAT 96
[2016-12-01] MEDS: REMOVE OLD PATCH T-DERMAL SCH (09:00)
[2016-12-01] MEDS: SODIUM CHLORIDE 0.9% FLUSH 10 ML FLUSH IV FLUSH SCH ×2 (09:00→21:35)
[2016-12-01] MEDS: NICOTINE 14 MG/24 HR PATCH T-DERMAL SCH (09:00)
[2016-12-01] MEDS: POTASSIUM CHLORIDE 20 MEQ CONTROLLED RELEASE TAB PO SCH ×2 (09:44→21:33)
[2016-12-01] MEDS: CETIRIZINE HCL 10 MG TAB PO SCH (09:44)
[2016-12-01] MEDS: RIFAMPIN 150 MG CAP PO SCH ×2 (09:46→21:33)
[2016-12-01] MEDS: VENLAFAXINE HCL XR 37.5 MG CAP PO SCH (09:48)
[2016-12-01] MEDS: DOCUSATE SODIUM 100 MG CAP PO SCH ×2 (09:48→21:00)
--- NOTE | 2016-12-01 11:48 | ECHRPT ---
Indication: EVALUATE TV VEGETATION CONCLUSIONS Normal left ventricular size. Wall thickness is normal. The left ventricular systolic function is severely reduced with an estimated ejection fraction in th e range of 35-40%. Findings consistent with vegetation on the posterior leaflet of the tricuspid valve. There is mild to moderate tricuspid valve regurgitation. There is estimated mild pulmonary hypertension present (range 40-50 mmHg). BP: 102 / 57 HR: 69 Rhythm: Sinus MEASUREMENTS (Male / Female) Normal Values Technical Quality:Good 2D ECHO LV Diastolic Diameter PLAX 5.3 cm 4.2 - 5.9 / 3.9 - 5.3 cm LV Systolic Diameter PLAX 4.7 cm IVS Diastolic Thickness 0.9 cm 0.6 - 1.0 / 0.6 - 0.9 cm LVPW Diastolic Thickness 0.9 cm 0.6 - 1.0 / 0.6 - 0.9 cm LV Relative Wall Thickness 0.4 LA Systolic Diameter LX 3.4 cm 3.0 - 4.0 / 2.7 - 3.8 cm DOPPLER TR Peak Velocity 311.0 cm/s TR Peak Gradient 38.7 mmHg FINDINGS LEFT VENTRICLE Normal left ventricular size. Wall thickness is normal. The left ventricular systolic function is severely reduced with an estimated ejection fraction in th e range of 35-40 %. RIGHT VENTRICLE Normal right ventricular size and systolic function. LEFT ATRIUM The left atrial size is normal. RIGHT ATRIUM The right atrial size is normal. ATRIAL SEPTUM Normal atrial septal thickness without atrial level shunting by limited color doppler interrogation. AORTA The aortic root and proximal ascending aorta are normal in size on limited imaging. MITRAL VALVE Structurally normal mitral valve. No mitral valve stenosis or regurgitation. AORTIC VALVE Trileaflet aortic valve. No aortic valve stenosis or regurgitation. TRICUSPID VALVE Findings consistent with vegetation on the posterior leaflet of the tricuspid valve. There is mild to moderate tricuspid valve regurgitation. There is estimated mild pulmonary hypertension present (range 40-50 mmHg). PULMONARY VALVE The pulmonary valve is not well visualized. VESSELS The inferior vena cava is normal in size. PERICARDIUM No pericardial effusion. Rani David MD (Electronically Signed) Final Date:01 December 2016 11:47
[2016-12-01 12:09] VITALS: BP 138/86; PULSE 96; RESP 18; TEMP 98.5; O2SAT 98
[2016-12-01] MEDS: NS + KCL 20 MEQ INJ 1,000 ML IV SCH (13:03)
[2016-12-01] MEDS: LISINOPRIL 10 MG TAB PO SCH (13:30)
--- NOTE | 2016-12-01 14:05 | HHI.PR ---
Subjective Remarks Follow up bacteremia, neck pain. Patient requesting increase in pain medication. No chest pain. Some dyspnea "after eating a lot". Objective Vitals Vital Signs Date Time Temp Pulse Resp B/P (MAP) Pulse Ox O2 Delivery O2 Flow Rate FiO2 12/01/16 12:09 98.5 96 18 138/86 (103) 98 12/01/16 08:20 98.3 82 18 164/97 (119) 96 12/01/16 05:01 98.4 86 20 171/100 (123) 98 12/01/16 00:53 98.0 74 20 160/83 (108) 94 11/30/16 20:00 97.5 81 20 145/90 (108) 98 11/30/16 17:52 87 146/65 (92) 11/30/16 16:00 99.1 92 19 139/80 (99) 96 I/O 11/30/16 11/30/16 11/30/16 12/01/16 12/01/16 12/01/16 07:00 15:00 23:00 07:00 15:00 23:00 Intake Total 780 ml Balance 780 ml Intake Oral 780 ml # Voids 4 5 # Bowel Movements 1 Result Diagram: 11/30/16 0743 12/01/16 0835 Imaging Last Impressions Cervical Spine MRI 11/29/16 0000 Signed Impressions: Service Date/Time: Tuesday, November 29, 2016 16:40 - CONCLUSION: Substantial improvement when compared to 08/06/16 substantial decrease in the amount of enhancement. Ceretec tagged white cell study may be of benefit to exclude residual inflammatory focus. Austin Dang MD FACR Cervical Spine CT 11/28/16 0000 Signed Impressions: Service Date/Time: Tuesday, November 29, 2016 11:22 - CONCLUSION: Stable changes when compared to 09/03/16. Spinal canal still remains adequate. Its difficult to assess the intra-and extradural components. A SPECT tagged white cell study with 3-D reconstructions could offer more information if continued infection is suspected. Austin Dang MD FACR Cervical Spine X-Ray 11/27/16 0000 Signed Impressions: Service Date/Time: October 14:02 - CONCLUSION: 1. Severe kyphosis centered at the C3 level approaching 90 which is mildly increased from the prior study. There is increased deformity of the inferior aspect of C2 with hypertrophic change and or soft tissue calcification. 2. Stable appearing deformity of the C3 vertebral body. 3. 4. Status post remote fusion of the C4- 5 and C6-7 levels. Reginald Michelle MD Chest X-Ray 11/26/16 1400 Signed Impressions: Service Date/Time: Thursday, November 26, 2016 14:22 - CONCLUSION: Prominent cardiac silhouette without suspicious lung lesions. Austin Dang MD FACR Objective Remarks General: No acute distress. Appears older than stated age. In cervical collar. Heart: Regular rate and rhythm. No murmur. Lungs: Clear to auscultation bilaterally. No wheezes, rales, or rhonchi. Breathing is nonlabored. Abdomen: Soft, nontender, nondistended. Extremities: No lower extremity edema. Psych: Alert, oriented. Procedures None Urinary Catheter: No Vascular Central Line Catheter: No A/P Problem List: (1) Amphetamine use disorder, severe, dependence ICD Code: F15.20 - Other stimulant dependence, uncomplicated Status: Acute (2) Abscess in epidural space of lumbar spine ICD Code: G06.1 - Intraspinal abscess and granuloma Status: Acute (3) Osteomyelitis of cervical spine ICD Code: M46.22 - Osteomyelitis of vertebra, cervical region Status: Acute (4) Neck abscess ICD Code: L02.11 - Cutaneous abscess of neck Status: Acute (5) Infectious endocarditis ICD Code: I33.0 - Acute and subacute infective endocarditis Status: Acute (6) Bacteremia ICD Code: R78.81 - Bacteremia Status: Acute (7) Fever ICD Code: R50.9 - Fever, unspecified Status: Acute (8) IV drug abuse ICD Code: F19.10 - Other psychoactive substance abuse, uncomplicated Status: Acute Assessment and Plan 1. Acute encephalopathy: Likely secondary to substance abuse, infection. Mental status seems to be improved. Continue telemetry monitoring. Urine drug screen positive for opiates and amphetamines. 2. Sepsis: Patient presented with a temperature of 105 as well as leukocytosis. Source is bacteremia, cellulitis of left arm, possible ongoing cervical spine osteomyelitis. Continue IV antibiotics. Appreciate infectious disease recommendations. Blood cultures are positive for MRSA. Continue IV fluids. 3. DVT prophylaxis: Lovenox. Repeat blood cultures are negative so far. 4. Cervical spine osteomyelitis: Diagnosed July 2016. Patient was evaluated by neurosurgery at that time. Continue cervical collar. Appreciate neurosurgery recommendations. Patient is not a good surgical candidate at this time due to ongoing IV drug abuse and high infection risk. Still complaining of neck pain. 5. Hypokalemia: Improved. Recheck labs in the morning. Oral Aguilar MD Dec 01, 2016 14:05
[2016-12-01 16:27] VITALS: BP 125/79; PULSE 83; RESP 18; TEMP 98.6; O2SAT 98
[2016-12-01 21:00] VITALS: BP 146/86; PULSE 66; RESP 19; TEMP 97.9; O2SAT 97
[2016-12-01] MEDS: ENOXAPARIN SODIUM 40 MG/0.4 ML SYRINGE SQ SCH (21:33)
[2016-12-02 04:00] VITALS: BP 145/76; PULSE 60; RESP 19; TEMP 97.7; O2SAT 98
[2016-12-02] MEDS ORDERED: PHARMACY ORDERED LAB ONE (04:45)
[2016-12-02] MEDS: oxyCODONE/ACETAMINOPHEN 7.5 MG/325 MG TAB PO PRN ×5 (05:53→22:57)
[2016-12-02] MEDS: VANCOMYCIN INJ 900 MG in SODIUM CHLOR 0.9% 250 ML INJ 250 ML IV SCH (05:53)
[2016-12-02 08:01] VITALS: BP 129/75; PULSE 66; RESP 18; TEMP 98.5; O2SAT 98
[2016-12-02] MEDS: DOCUSATE SODIUM 100 MG CAP PO SCH ×2 (08:40→21:32)
[2016-12-02] MEDS: CETIRIZINE HCL 10 MG TAB PO SCH (08:41)
[2016-12-02] MEDS: POTASSIUM CHLORIDE 20 MEQ CONTROLLED RELEASE TAB PO SCH ×2 (08:41→21:33)
[2016-12-02] MEDS: RIFAMPIN 150 MG CAP PO SCH ×2 (08:41→21:32)
[2016-12-02] MEDS: LISINOPRIL 10 MG TAB PO SCH (08:42)
[2016-12-02] MEDS: VENLAFAXINE HCL XR 37.5 MG CAP PO SCH (08:42)
[2016-12-02] MEDS: SODIUM CHLORIDE 0.9% FLUSH 10 ML FLUSH IV FLUSH SCH ×2 (08:42→21:00)
[2016-12-02] MEDS: REMOVE OLD PATCH T-DERMAL SCH (08:44)
[2016-12-02] MEDS: NICOTINE 14 MG/24 HR PATCH T-DERMAL SCH (08:44)
[2016-12-02] MEDS: LORazepam 0.5 MG TAB PO PRN ×2 (09:22→22:56)
[2016-12-02 11:29] LABS: AUTOMATED NEUTROPHIL # 6.3 TH/MM3 (1.8-7.7); BASOPHIL % 0.4 % (0.0-2.0); EOSINOPHIL # 0.2 TH/MM3 (0-0.4); EOSINOPHIL % 2.5 % (0.0-4.0); HEMATOCRIT 34.7 % (35.0-46.0); HEMO FLAGS DIFF FINAL; LYMPH % 20.7 % (9.0-44.0); LYMPHOCYTE # 1.8 TH/MM3 (1.0-4.8); MEAN CELL VOLUME 59.8 FL (80.0-100.0); MEAN CORPUSCULAR HEMOGLOBIN 18.9 PG (27.0-34.0); MEAN CORPUSCULAR HGB CONC 31.6 % (32.0-36.0); MONO % 5.7 % (0.0-8.0); NEUT % 70.7 % (16.0-70.0); PLATELET COUNT 571 TH/MM3 (150-450); RED CELL DISTRIBUTION WIDTH 17.9 % (11.6-17.2); WHITE BLOOD COUNT 8.9 TH/MM3 (4.0-11.0)
[2016-12-02 11:50] LABS: BICARBONATE 26.3 MEQ/L (21.0-32.0); MAGNESIUM 2.2 MG/DL (1.5-2.5); POTASSIUM 4.2 MEQ/L (3.5-5.1)
[2016-12-02 12:10] VITALS: BP 116/69; PULSE 73; RESP 18; TEMP 98.2; O2SAT 100
[2016-12-02] MEDS: VANCOMYCIN 1,000 MG/NS 250 ML IV SCH ×4 (13:57→21:34)
[2016-12-02 16:04] VITALS: PULSE 60
[2016-12-02 16:29] VITALS: BP 99/62; PULSE 74; RESP 18; TEMP 98.3; O2SAT 99
--- NOTE | 2016-12-02 18:11 | HHI.PR ---
Subjective Remarks Patient reports she is feeling okay. She is requesting that she be restarted on her home pain medication regimen. She reports persistent neck pain. She reports she was taking 30 mg of morphine twice daily and up to 3 Percocets for breakthrough pain. She states she was following with a pain management physician. She denies shortness of breath or chest pain. Objective Vitals Vital Signs Date Time Temp Pulse Resp B/P (MAP) Pulse Ox O2 Delivery O2 Flow Rate FiO2 12/02/16 16:29 98.3 74 18 99/62 (74) 99 12/02/16 16:04 60 12/02/16 12:10 98.2 73 18 116/69 (85) 100 12/02/16 08:01 98.5 66 18 129/75 (93) 98 12/02/16 04:00 97.7 60 19 145/76 (99) 98 12/01/16 21:00 97.9 66 19 146/86 (106) 97 I/O 12/01/16 12/01/16 12/01/16 12/02/16 12/02/16 12/02/16 06:59 14:59 22:59 06:59 14:59 22:59 Intake Total 1966 ml 850 ml Balance 1966 ml 850 ml Intake Oral 960 ml 600 ml IV Total 1006 ml 250 ml # Voids 5 4 4 # Bowel Movements 1 1 Result Diagram: 12/02/16 1003 12/02/16 1003 Imaging Last Impressions Cervical Spine MRI 11/29/16 0000 Signed Impressions: Service Date/Time: Tuesday, November 29, 2016 16:40 - CONCLUSION: Substantial improvement when compared to 08/06/16 substantial decrease in the amount of enhancement. Ceretec tagged white cell study may be of benefit to exclude residual inflammatory focus. Austin Dang MD FACR Cervical Spine CT 11/28/16 0000 Signed Impressions: Service Date/Time: Tuesday, November 29, 2016 11:22 - CONCLUSION: Stable changes when compared to 09/03/16. Spinal canal still remains adequate. Its difficult to assess the intra-and extradural components. A SPECT tagged white cell study with 3-D reconstructions could offer more information if continued infection is suspected. Austin Dang MD FACR Cervical Spine X-Ray 11/27/16 0000 Signed Impressions: Service Date/Time: October 14:02 - CONCLUSION: 1. Severe kyphosis centered at the C3 level approaching 90 which is mildly increased from the prior study. There is increased deformity of the inferior aspect of C2 with hypertrophic change and or soft tissue calcification. 2. Stable appearing deformity of the C3 vertebral body. 3. 4. Status post remote fusion of the C4- 5 and C6-7 levels. Reginald Michelle MD Chest X-Ray 11/26/16 1400 Signed Impressions: Service Date/Time: Saturday, November 26, 2016 14:22 - CONCLUSION: Prominent cardiac silhouette without suspicious lung lesions. Austin Dang MD FACR Objective Remarks GENERAL: This is a well-nourished, well-developed patient, in no apparent distress. CARDIOVASCULAR: Normal rate and regular rhythm without murmurs, gallops, or rubs. RESPIRATORY: Good respiratory efforts. Breath sounds equal and clear to auscultation bilaterally. GASTROINTESTINAL: Abdomen soft, non-tender, non-distended. Normal active bowel sounds MUSCULOSKELETAL: Patient reports tenderness to palpation in the cervical region. NEURO: Alert & Oriented x4 to person, place, time, situation. Moves all ext x4 PSYCH: Appropriate mood and affect. Procedures None A/P Problem List: (1) Amphetamine use disorder, severe, dependence ICD Code: F15.20 - Other stimulant dependence, uncomplicated Status: Acute (2) Abscess in epidural space of lumbar spine ICD Code: G06.1 - Intraspinal abscess and granuloma Status: Acute (3) Osteomyelitis of cervical spine ICD Code: M46.22 - Osteomyelitis of vertebra, cervical region Status: Acute (4) Neck abscess ICD Code: L02.11 - Cutaneous abscess of neck Status: Acute (5) Infectious endocarditis ICD Code: I33.0 - Acute and subacute infective endocarditis Status: Acute (6) Bacteremia ICD Code: R78.81 - Bacteremia Status: Acute (7) Fever ICD Code: R50.9 - Fever, unspecified Status: Acute (8) IV drug abuse ICD Code: F19.10 - Other psychoactive substance abuse, uncomplicated Status: Acute Assessment and Plan 46-year-old female with: Acute encephalopathy: On presentation. This is likely related to drug overdose. . Urine drug screen positive for opiates and amphetamines. Encephalopathy have since resolved. Sepsis: Patient presented with a temperature of 105 as well as leukocytosis. Source is bacteremia, cellulitis of left arm, possible ongoing cervical spine osteomyelitis. Continue IV antibiotics. Appreciate infectious disease recommendations. Blood cultures are positive for MRSA. Cervical spine osteomyelitis: Diagnosed July 2016. Patient was evaluated by neurosurgery at that time. Continue cervical collar. Appreciate neurosurgery recommendations. Patient is not a good surgical candidate at this time due to ongoing IV drug abuse and high infection risk. Still complaining of neck pain. Chronic pain: Patient requesting her home medications be restarted. She is an IV drug user. I discussed addiction issue with the patient. She is adamant that she does not abuse her prescriptions medication and reportedly had a relapse with amphetamines. I advised the patient we will contact her chronic pain management physician to confirm her medications. I also advised her that if she is not allowed to return to pain management due to her drug use that even if we restarted his medications here, she will not get her prescriptions for them to go home. Hypertension: Continue lisinopril DVT prophylaxis: Lovenox. Ailyn Myers MD Dec 02, 2016 18:11
[2016-12-02 21:30] VITALS: BP 99/56; PULSE 69; RESP 17; TEMP 98.2; O2SAT 98
[2016-12-02] MEDS: ENOXAPARIN SODIUM 40 MG/0.4 ML SYRINGE SQ SCH (21:32)
[2016-12-03] VITALS (7 sets, daily range): BP systolic 88–112; BP diastolic 50–69; PULSE 55–74; RESP 16–20; TEMP 97.3–98.6; O2SAT 97–100
[2016-12-03] MEDS: VENLAFAXINE HCL XR 37.5 MG CAP PO SCH (08:37)
[2016-12-03] MEDS: CETIRIZINE HCL 10 MG TAB PO SCH (08:37)
[2016-12-03] MEDS: DOCUSATE SODIUM 100 MG CAP PO SCH ×2 (08:38→20:27)
[2016-12-03] MEDS: LISINOPRIL 10 MG TAB PO SCH (08:38)
[2016-12-03] MEDS: RIFAMPIN 150 MG CAP PO SCH ×2 (08:38→20:26)
[2016-12-03] MEDS: POTASSIUM CHLORIDE 20 MEQ CONTROLLED RELEASE TAB PO SCH ×2 (08:38→20:27)
[2016-12-03] MEDS: SODIUM CHLORIDE 0.9% FLUSH 10 ML FLUSH IV FLUSH SCH ×2 (08:38→20:27)
[2016-12-03] MEDS: oxyCODONE/ACETAMINOPHEN 7.5 MG/325 MG TAB PO PRN ×2 (08:38→15:28)
[2016-12-03] MEDS: REMOVE OLD PATCH T-DERMAL SCH (08:39)
[2016-12-03] MEDS: NICOTINE 14 MG/24 HR PATCH T-DERMAL SCH (08:39)
[2016-12-03] MEDS: LORazepam 0.5 MG TAB PO PRN ×2 (11:56→22:18)
--- NOTE | 2016-12-03 12:35 | HHI.PR ---
Subjective Remarks Patient reports she is feeling ok today. No new issues. Objective Vitals Vital Signs Date Time Temp Pulse Resp B/P (MAP) Pulse Ox O2 Delivery O2 Flow Rate FiO2 12/03/16 12:03 98.2 62 18 95/53 (67) 98 12/03/16 09:15 74 12/03/16 05:20 97.3 66 20 105/69 (81) 98 12/03/16 00:00 97.9 67 18 100/60 (73) 97 12/02/16 21:30 98.2 69 17 99/56 (70) 98 12/02/16 16:29 98.3 74 18 99/62 (74) 99 12/02/16 16:04 60 I/O 12/02/16 12/02/16 12/02/16 12/03/16 12/03/16 12/03/16 07:00 15:00 23:00 07:00 15:00 23:00 Intake Total 850 ml 1000 ml Balance 850 ml 1000 ml Intake Oral 600 ml 1000 ml IV Total 250 ml # Voids 4 1 2 # Bowel Movements 1 0 0 Result Diagram: 12/02/16 1003 12/02/16 1003 Objective Remarks GENERAL: This is a well-nourished, well-developed patient, in no apparent distress. CARDIOVASCULAR: Normal rate and regular rhythm without murmurs, gallops, or rubs. RESPIRATORY: Good respiratory efforts. Breath sounds equal and clear to auscultation bilaterally. GASTROINTESTINAL: Abdomen soft, non-tender, non-distended. Normal active bowel sounds MUSCULOSKELETAL: Patient reports tenderness to palpation in the cervical region. NEURO: Alert & Oriented x4 to person, place, time, situation. Moves all ext x4 PSYCH: Appropriate mood and affect. Procedures None A/P Problem List: (1) Amphetamine use disorder, severe, dependence ICD Code: F15.20 - Other stimulant dependence, uncomplicated Status: Acute (2) Abscess in epidural space of lumbar spine ICD Code: G06.1 - Intraspinal abscess and granuloma Status: Acute (3) Osteomyelitis of cervical spine ICD Code: M46.22 - Osteomyelitis of vertebra, cervical region Status: Acute (4) Neck abscess ICD Code: L02.11 - Cutaneous abscess of neck Status: Acute (5) Infectious endocarditis ICD Code: I33.0 - Acute and subacute infective endocarditis Status: Acute (6) Bacteremia ICD Code: R78.81 - Bacteremia Status: Acute (7) Fever ICD Code: R50.9 - Fever, unspecified Status: Acute (8) IV drug abuse ICD Code: F19.10 - Other psychoactive substance abuse, uncomplicated Status: Acute Assessment and Plan 46-year-old female with: Acute encephalopathy: On presentation. This is likely related to drug overdose. Urine drug screen positive for opiates and amphetamines. Encephalopathy have since resolved. 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 Source is bacteremia, cellulitis of left arm, possible ongoing cervical spine osteomyelitis. Continue IV antibiotics. Appreciate infectious disease recommendations. Blood cultures are positive for MRSA. Cervical spine osteomyelitis: Diagnosed July 2016. Patient was evaluated by neurosurgery at that time. Continue cervical collar. Appreciate neurosurgery recommendations. Patient is not a good surgical candidate at this time due to ongoing IV drug abuse and high infection risk. Still complaining of neck pain. Chronic pain: She is an IV drug user. I discussed addiction issue with the patient. She is adamant that she does not abuse her prescriptions medication and reportedly had a relapse with amphetamines. Hypertension: Continue lisinopril DVT prophylaxis: Lovenox. Ailyn Myers MD Dec 03, 2016 12:35
[2016-12-03] MEDS: VANCOMYCIN 1,000 MG/NS 250 ML IV SCH ×4 (14:38→20:28)
--- NOTE | 2016-12-03 16:24 | HHI.IDPN ---
Subjective Subjective Remarks pt is afebrile repeat blood cultures are negative feels better C spine MRI showed Substantial improvement when compared to 08/06/16 substantial decrease in the amount of enhancement. Antibiotics vancomycin Allergies: Coded Allergies: penicillin G (Unverified Allergy, Intermediate, Rash, 11/12/16) Has taken Keflex without any problem Uncoded Allergies: chemical allergy (Allergy, Severe, anaphalactic, 09/27/12) Objective . Vital Signs Date Time Temp Pulse Resp B/P (MAP) Pulse Ox O2 Delivery O2 Flow Rate FiO2 12/03/16 15:27 98.2 67 18 104/63 (77) 100 12/03/16 14:35 55 16 88/50 (63) 100 12/03/16 12:03 98.2 62 18 95/53 (67) 98 12/03/16 09:15 74 12/03/16 05:20 97.3 66 20 105/69 (81) 98 12/03/16 00:00 97.9 67 18 100/60 (73) 97 12/02/16 21:30 98.2 69 17 99/56 (70) 98 12/02/16 16:29 98.3 74 18 99/62 (74) 99 12/03/16 12/03/16 12/04/16 15:00 23:00 07:00 Intake Total 480 ml Balance 480 ml Intake Oral 480 ml # Voids 6 # Bowel Movements 2 . Laboratory Tests Test 12/02/16 10:03 White Blood Count 8.9 TH/MM3 Red Blood Count 5.80 MIL/MM3 Hemoglobin 11.0 GM/DL Hematocrit 34.7 % Mean Corpuscular Volume 59.8 FL Mean Corpuscular Hemoglobin 18.9 PG Mean Corpuscular Hemoglobin Concent 31.6 % Red Cell Distribution Width 17.9 % Platelet Count 571 TH/MM3 Mean Platelet Volume 8.2 FL Neutrophils (%) (Auto) 70.7 % Lymphocytes (%) (Auto) 20.7 % Monocytes (%) (Auto) 5.7 % Eosinophils (%) (Auto) 2.5 % Basophils (%) (Auto) 0.4 % Neutrophils # (Auto) 6.3 TH/MM3 Lymphocytes # (Auto) 1.8 TH/MM3 Monocytes # (Auto) 0.5 TH/MM3 Eosinophils # (Auto) 0.2 TH/MM3 Basophils # (Auto) 0.0 TH/MM3 CBC Comment DIFF FINAL Differential Comment Laboratory Tests Test 12/02/16 10:03 Blood Urea Nitrogen 10 MG/DL Creatinine 0.55 MG/DL Random Glucose 86 MG/DL Calcium Level 9.0 MG/DL Magnesium Level 2.2 MG/DL Sodium Level 137 MEQ/L Potassium Level 4.2 MEQ/L Chloride Level 102 MEQ/L Carbon Dioxide Level 26.3 MEQ/L Anion Gap 9 MEQ/L Estimat Glomerular Filtration Rate 120 ML/MIN Imaging Last Impressions Cervical Spine MRI 11/29/16 0000 Signed Impressions: Service Date/Time: Tuesday, November 29, 2016 16:40 - CONCLUSION: Substantial improvement when compared to 08/06/16 substantial decrease in the amount of enhancement. Ceretec tagged white cell study may be of benefit to exclude residual inflammatory focus. Austin Dang MD FACR Cervical Spine CT 11/28/16 0000 Signed Impressions: Service Date/Time: Tuesday, November 29, 2016 11:22 - CONCLUSION: Stable changes when compared to 09/03/16. Spinal canal still remains adequate. Its difficult to assess the intra-and extradural components. A SPECT tagged white cell study with 3-D reconstructions could offer more information if continued infection is suspected. Austin Dang MD FACR Cervical Spine X-Ray 11/27/16 0000 Signed Impressions: Service Date/Time: October 14:02 - CONCLUSION: 1. Severe kyphosis centered at the C3 level approaching 90 which is mildly increased from the prior study. There is increased deformity of the inferior aspect of C2 with hypertrophic change and or soft tissue calcification. 2. Stable appearing deformity of the C3 vertebral body. 3. 4. Status post remote fusion of the C4- 5 and C6-7 levels. Reginald Michelle MD Chest X-Ray 11/26/16 1400 Signed Impressions: Service Date/Time: Saturday, November 26, 2016 14:22 - CONCLUSION: Prominent cardiac silhouette without suspicious lung lesions. Austin Dang MD FACR Physical Exam CONSTITUTIONAL/GENERAL: This is an adequately nourished patient, in no apparent distress. TUBES/LINES/DRAINS: SKIN: No jaundice, rashes, Multiple excoriated skin lesions arms, back Skin temperature appropriate. Not diaphoretic. EYES: Pupils equal and round and reactive. Extraocular motions intact. No scleral icterus. No injection or drainage. Fundi not examined. NECK: C collar in place CARDIOVASCULAR: Regular rate and rhythm without murmurs, gallops, or rubs. No JVD. Peripheral pulses symmetric. RESPIRATORY/CHEST: Symmetric, unlabored respirations. Clear to auscultation. Breath sounds equal bilaterally. No wheezes, rales, or rhonchi. GASTROINTESTINAL: Abdomen soft, non-tender, nondistended. No hepato-splenomegaly , or palpable masses. No guarding. Bowel sounds present. MUSCULOSKELETAL: Extremities without clubbing, cyanosis, or edema. No joint tenderness or effusion noted. No calf tenderness. No mottling or clubbing. NEUROLOGICAL: Awake and alert. Motor and sensory grossly within normal limits. Follows commands. Clear speech. Moves all extremities. PSYCHIATRIC: No obvious anxiety/depression. no apparent hallucinations or other psychotic thought process. Assessment & Plan Remarks IVDU C spine osteomyelitis, radiologically improved - pt is neurologically intact MRI with improvement Ceretec results P 2 D echo neg for veg pt is not a cndidate for PETER 2/2 her Cspine disease TV endocarditis preiously both MRSA, MSSA Presents with MRSA sepsis, source is either from C spiine or recuretn endocarditis cont vancomycin - fu Ceretec results - will add rifampin in case of Cspine infx - anticipate dc on at least 4 weeks of vancomycin dw case mngr Dina Carlos MD Dec 03, 2016 16:24
--- NOTE | 2016-12-03 16:33 | RADRPT ---
EXAM DATE/TIME: 12/02/2016 16:43 [facility] COMPARISON: MRI CERVICAL SPINE W & W/O CONTRAST, August 06, 2016, 8:06. CT CERVICAL SPINE W/O CONTRAST, November, 11:22. MRI CERVICAL SPINE W & W/O CONTRAST, November 29, 2016, 16:40. INDICATIONS : Cervical spine infection. DOSE: 20.1 mCi Tc99m Ceretec labeled white blood cells IV PLANAR IMAGIN min, 3 hrs, 20 hrs SPECT IMAGIN hrs, 20 hrs IMAGNG: SPECT/CT imaging with fusion was performed. RADIATION DOSE: 6.48 CTDIvol (mGy) MEDICAL HISTORY : Methicillin-resistant Staphylococcus aureus. SURGICAL HISTORY : Cervical fusion. ENCOUNTER: Initial ACUITY: 4 - 6 months PAIN SCALE: 3/10 LOCATION: Cervical spine. TECHNIQUE: Following the in vitro labeling of autologous white cells and reinjection, whole body scan was perfor med at the specified times. Imaging was performed at specified times in sagittal, axial and coronal planes. Attenuation correction was performed with computed tomography and both the attenuation corre ction and non-attenuation corrected data sets were reviewed. FINDINGS: There is no abnormal biodistribution of radiotracer. No focal abnormal accumulation of white cells s een in the chest/abdomen/pelvis. On the 20 hour images, there is moderate white cell accumulation in the right lower quadrant, probably related to ingested white cells located in the cecum. SPECT/CT imaging of the cervical spine was also performed. There is no abnormal white cell accumulat ion in the surgical level C2/3/4 and there is no white cell accumulation at the pseudoarthrosis at C2 -3. There is no abnormal white cell accumulation soft tissues posterior to the cervical spine. CONCLUSION: No abnormal white cell accumulation in the cervical spine. Luigi Thomas MD on December 03, 2016 at 16:24 Board Certified Radiologist. This report was verified electronically.
[2016-12-03] MEDS: ENOXAPARIN SODIUM 40 MG/0.4 ML SYRINGE SQ SCH (20:26)
[2016-12-03] MEDS: oxyCODONE/ACETAMINOPHEN 5 MG/325 MG TAB PO PRN (20:27)
[2016-12-04] VITALS (7 sets, daily range): BP systolic 91–130; BP diastolic 51–59; PULSE 61–110; RESP 18–20; TEMP 97.2–98.4; O2SAT 97–98
[2016-12-04] MEDS ORDERED: PHARMACY ORDERED LAB ONE (05:45)
[2016-12-04] MEDS: oxyCODONE/ACETAMINOPHEN 5 MG/325 MG TAB PO PRN (05:54)
[2016-12-04] MEDS: VANCOMYCIN 1,000 MG/NS 250 ML IV SCH ×6 (05:54→20:40)
[2016-12-04 08:01] LABS: VANCOMYCIN TROUGH 18.9 MCG/ML (5.0-10.0)
[2016-12-04] MEDS: SODIUM CHLORIDE 0.9% FLUSH 10 ML FLUSH IV FLUSH SCH ×2 (08:38→20:38)
[2016-12-04] MEDS: RIFAMPIN 150 MG CAP PO SCH ×2 (08:39→20:40)
[2016-12-04] MEDS: VENLAFAXINE HCL XR 37.5 MG CAP PO SCH (08:40)
[2016-12-04] MEDS: POTASSIUM CHLORIDE 20 MEQ CONTROLLED RELEASE TAB PO SCH ×2 (08:40→20:39)
[2016-12-04] MEDS: LISINOPRIL 10 MG TAB PO SCH (08:40)
[2016-12-04] MEDS: DOCUSATE SODIUM 100 MG CAP PO SCH ×2 (08:40→20:39)
[2016-12-04] MEDS: REMOVE OLD PATCH T-DERMAL SCH (08:41)
[2016-12-04] MEDS: NICOTINE 14 MG/24 HR PATCH T-DERMAL SCH (08:41)
[2016-12-04] MEDS: CETIRIZINE HCL 10 MG TAB PO SCH (08:42)
[2016-12-04] MEDS: oxyCODONE/ACETAMINOPHEN 7.5 MG/325 MG TAB PO PRN ×3 (10:10→18:20)
--- NOTE | 2016-12-04 15:29 | HHI.PR ---
Subjective Remarks Follow-up visit substance abuse, sepsis tricuspid valve endocarditis, chronic pain, cervical spine osteomyelitis, HTN. Patient seen and examined today lying in bed. Reports she is doing well. Continues to have soft collar in place. Pain is manageable. She is able to get around and about going to the bathroom taking a shower and ambulate in her room. Denies pain and discomfort. Denies SOB/ dyspnea. Denies chest pain, palpitations, headaches, dizziness. Denies fevers, chills, n/v/d. Denies dysuria. Objective Vitals Vital Signs Date Time Temp Pulse Resp B/P (MAP) Pulse Ox O2 Delivery O2 Flow Rate FiO2 12/04/16 12:00 98.4 76 20 95/51 (66) 98 12/04/16 08:00 98.3 61 20 105/59 (74) 98 12/04/16 05:07 65 12/04/16 04:00 97.6 62 18 130/58 (82) 98 12/04/16 00:00 98.4 63 18 106/55 (72) 97 12/03/16 20:00 98.6 65 20 112/62 (79) 99 I/O 12/03/16 12/03/16 12/03/16 12/04/16 12/04/16 12/04/16 07:00 15:00 23:00 07:00 15:00 23:00 Intake Total 1000 ml 730 ml 240 ml Balance 1000 ml 730 ml 240 ml Intake Oral 1000 ml 480 ml 240 ml IV Total 250 ml # Voids 2 6 2 # Bowel Movements 0 2 Result Diagram: 12/02/16 1003 12/04/16 0617 Imaging Last Impressions Tumor Localization 12/02/16 0000 Signed Impressions: Service Date/Time: Friday, December 02, 2016 16:43 - CONCLUSION: No abnormal white cell accumulation in the cervical spine. Luigi Thomas MD Cervical Spine MRI 11/29/16 0000 Signed Impressions: Service Date/Time: Tuesday, November 29, 2016 16:40 - CONCLUSION: Substantial improvement when compared to 08/06/16 substantial decrease in the amount of enhancement. Ceretec tagged white cell study may be of benefit to exclude residual inflammatory focus. Austin Dang MD FACR Cervical Spine CT 11/28/16 0000 Signed Impressions: Service Date/Time: Tuesday, November 29, 2016 11:22 - CONCLUSION: Stable changes when compared to 09/03/16. Spinal canal still remains adequate. Its difficult to assess the intra-and extradural components. A SPECT tagged white cell study with 3-D reconstructions could offer more information if continued infection is suspected. Austin Dang MD FACR Cervical Spine X-Ray 11/27/16 0000 Signed Impressions: Service Date/Time: October 14:02 - CONCLUSION: 1. Severe kyphosis centered at the C3 level approaching 90 which is mildly increased from the prior study. There is increased deformity of the inferior aspect of C2 with hypertrophic change and or soft tissue calcification. 2. Stable appearing deformity of the C3 vertebral body. 3. 4. Status post remote fusion of the C4- 5 and C6-7 levels. Reginald Michelle MD Chest X-Ray 11/26/16 1400 Signed Impressions: Service Date/Time: Saturday, November 26, 2016 14:22 - CONCLUSION: Prominent cardiac silhouette without suspicious lung lesions. Austin Dang MD FACR Objective Remarks GENERAL: This is a well-nourished, well-developed patient, in no apparent distress. SKIN: Warm and dry. Multiple scab wounds, BUE and BLE track mercado appearing. HEENT: Normocephalic. Pupils equal round and reactive. Nose without bleeding. Airway patent. NECK: Trachea midline. Supple. CARDIOVASCULAR: Regular rate and rhythm without murmurs, gallops, or rubs. RESPIRATORY: Clear to auscultation. Breath sounds equal bilaterally. No wheezes , rales, or rhonchi. GASTROINTESTINAL: Abdomen soft, non-tender, nondistended. Bowel Sounds normoactive x4. MUSCULOSKELETAL: Extremities without clubbing, cyanosis, or edema. NEUROLOGICAL: Awake and alert. Oriented to time, place, person. Moves all extremities. Normal speech. Procedures None A/P Problem List: (1) Amphetamine use disorder, severe, dependence ICD Code: F15.20 - Other stimulant dependence, uncomplicated Status: Acute (2) Abscess in epidural space of lumbar spine ICD Code: G06.1 - Intraspinal abscess and granuloma Status: Acute (3) Osteomyelitis of cervical spine ICD Code: M46.22 - Osteomyelitis of vertebra, cervical region Status: Acute (4) Neck abscess ICD Code: L02.11 - Cutaneous abscess of neck Status: Acute (5) Infectious endocarditis ICD Code: I33.0 - Acute and subacute infective endocarditis Status: Acute (6) Bacteremia ICD Code: R78.81 - Bacteremia Status: Acute (7) Fever ICD Code: R50.9 - Fever, unspecified Status: Acute (8) IV drug abuse ICD Code: F19.10 - Other psychoactive substance abuse, uncomplicated Status: Acute Assessment and Plan 46-year-old female with: Acute encephalopathy: On presentation. This is likely related to drug overdose. Urine drug screen positive for opiates and amphetamines. Encephalopathy have since resolved. 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 Source is bacteremia, cellulitis of left arm, possible ongoing cervical spine osteomyelitis. - Continue IV antibiotics. Appreciate infectious disease recommendations. Blood cultures are positive for MRSA. - As per ID recommendation vancomycin 4 weeks. - Will need PICC line placement and set up an infusion center if patient is willing, and will stay clean of IV drugs. Cervical spine osteomyelitis: Diagnosed July 2016. Patient was evaluated by neurosurgery at that time. Continue cervical collar. - Appreciate neurosurgery recommendations. - Patient is not a good surgical candidate at this time due to ongoing IV drug abuse and high infection risk. Still complaining of neck pain. Chronic pain: She is an IV drug user. MD discussed addiction issue with the patient. She is adamant that she does not abuse her prescriptions medication and reportedly had a relapse with amphetamines. - No changes should be made with her narcotics. Percocet 5/325mg q4hrs, Percocet 7.5mg/325mg q4hrs. Hypertension: Continue lisinopril DVT prophylaxis: Lovenox. Full code Discussed with patient, Andrew Lai Dec 04, 2016 15:29
[2016-12-04] MEDS: ENOXAPARIN SODIUM 40 MG/0.4 ML SYRINGE SQ SCH (20:38)
[2016-12-04] MEDS: LORazepam 0.5 MG TAB PO PRN (20:41)
[2016-12-05] VITALS (9 sets, daily range): BP systolic 74–102; BP diastolic 41–56; PULSE 61–95; RESP 16–20; TEMP 97.5–98.7; O2SAT 96–100
[2016-12-05] MEDS: oxyCODONE/ACETAMINOPHEN 7.5 MG/325 MG TAB PO PRN ×2 (06:18→23:21)
[2016-12-05] MEDS: VANCOMYCIN 1,000 MG/NS 250 ML IV SCH ×6 (06:19→23:05)
[2016-12-05] MEDS: CETIRIZINE HCL 10 MG TAB PO SCH (08:18)
[2016-12-05] MEDS: DOCUSATE SODIUM 100 MG CAP PO SCH ×2 (08:19→21:19)
[2016-12-05] MEDS: POTASSIUM CHLORIDE 20 MEQ CONTROLLED RELEASE TAB PO SCH ×2 (08:19→21:20)
[2016-12-05] MEDS: RIFAMPIN 150 MG CAP PO SCH ×2 (08:19→21:19)
[2016-12-05] MEDS: LISINOPRIL 10 MG TAB PO SCH (08:19)
[2016-12-05] MEDS: SODIUM CHLORIDE 0.9% FLUSH 10 ML FLUSH IV FLUSH SCH ×2 (08:20→21:00)
[2016-12-05] MEDS: NICOTINE 14 MG/24 HR PATCH T-DERMAL SCH (08:20)
[2016-12-05] MEDS: REMOVE OLD PATCH T-DERMAL SCH (08:20)
--- NOTE | 2016-12-05 09:57 | HHI.PR ---
Subjective Remarks Follow-up visit substance abuse, sepsis tricuspid valve endocarditis, chronic pain, cervical spine osteomyelitis, HTN. Patient seen and examined today. Patient reports she is feeling well. She complains of persistent weakness in the right hand since her admission. Patient reports this happened before when her neck was infected and resolved after treatment. She denies any RUE pain but reports her handwriting is illegible. She denies any fever or chills. States her neck pain is controlled. Denies any lower extremity weakness or bowel/bladder dysfunction. She denies any chest pain or shortness of breath. Denies any N/V or abdominal pain. Objective Vitals Vital Signs Date Time Temp Pulse Resp B/P (MAP) Pulse Ox O2 Delivery O2 Flow Rate FiO2 12/05/16 08:00 98.2 61 16 100/52 (68) 98 12/05/16 04:00 97.7 62 16 91/50 (64) 96 12/05/16 01:43 79/46 (57) 12/05/16 00:00 97.5 95 18 97/55 (69) 98 12/04/16 21:33 97.2 110 19 91/52 (65) 97 12/04/16 16:00 98.3 63 20 106/58 (74) 98 12/04/16 12:00 98.4 76 20 95/51 (66) 98 I/O 12/04/16 12/04/16 12/04/16 12/05/16 12/05/16 12/05/16 06:59 14:59 22:59 06:59 14:59 22:59 Intake Total 240 ml 360 ml 250 ml Balance 240 ml 360 ml 250 ml Intake Oral 240 ml 360 ml IV Total 250 ml # Voids 2 2 Result Diagram: 12/02/16 1003 12/04/16 0617 Imaging Last Impressions Tumor Localization 12/02/16 0000 Signed Impressions: Service Date/Time: Friday, December 02, 2016 16:43 - CONCLUSION: No abnormal white cell accumulation in the cervical spine. Luigi Thomas MD Cervical Spine MRI 11/29/16 0000 Signed Impressions: Service Date/Time: Tuesday, November 29, 2016 16:40 - CONCLUSION: Substantial improvement when compared to 08/06/16 substantial decrease in the amount of enhancement. Ceretec tagged white cell study may be of benefit to exclude residual inflammatory focus. Austin Dang MD FACR Cervical Spine CT 11/28/16 0000 Signed Impressions: Service Date/Time: Tuesday, November 29, 2016 11:22 - CONCLUSION: Stable changes when compared to 09/03/16. Spinal canal still remains adequate. Its difficult to assess the intra-and extradural components. A SPECT tagged white cell study with 3-D reconstructions could offer more information if continued infection is suspected. Austin Dang MD FACR Cervical Spine X-Ray 11/27/16 0000 Signed Impressions: Service Date/Time: October 14:02 - CONCLUSION: 1. Severe kyphosis centered at the C3 level approaching 90 which is mildly increased from the prior study. There is increased deformity of the inferior aspect of C2 with hypertrophic change and or soft tissue calcification. 2. Stable appearing deformity of the C3 vertebral body. 3. 4. Status post remote fusion of the C4- 5 and C6-7 levels. Reginald Michelle MD Chest X-Ray 11/26/16 1400 Signed Impressions: Service Date/Time: Saturday, November 26, 2016 14:22 - CONCLUSION: Prominent cardiac silhouette without suspicious lung lesions. Austin Dang MD FACR Objective Remarks GENERAL: This is a well-nourished, well-developed patient, in no apparent distress. Witnessed ambulating around hospital room. Awake and alert. Appears comfortable. SKIN: Warm and dry. Multiple scab wounds, BUE and BLE track mercado appearing. HEENT: Normocephalic. EOMI. Nose without bleeding. Airway patent. NECK: Trachea midline. Supple. CARDIOVASCULAR: Regular rate and rhythm without murmurs, gallops, or rubs. RESPIRATORY: Clear to auscultation. Breath sounds equal bilaterally. No wheezes , rales, or rhonchi. GASTROINTESTINAL: Abdomen soft, non-tender, nondistended. Bowel Sounds normoactive x4. MUSCULOSKELETAL: Extremities without clubbing, cyanosis, or edema. NEUROLOGICAL: Awake and alert. Oriented to time, place, person. Moves all extremities spontaneously. 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 Normal speech. Procedures None Medications and IVs Current Medications Medications (Trade) Dose Ordered Sig/Declan Route Start Time Stop Time Status Last Admin (NS Flush) 2 ml UNSCH PRN IV FLUSH 11/26/16 17:30 (NS Flush) 2 ml BID IV FLUSH 11/26/16 21:00 12/05/16 08:20 (Tylenol) 650 mg Q4H PRN PO 11/26/16 17:30 (Lovenox Inj) 40 mg Q24H SQ 11/26/16 20:00 12/04/16 20:38 (Narcan Inj) 0.4 mg UNSCH PRN IV 11/26/16 17:30 (Milk Of Magnesia Liq) 30 ml Q12H PRN PO 11/26/16 17:30 (Senokot) 17.2 mg Q12H PRN PO 11/26/16 17:30 (Dulcolax Supp) 10 mg DAILY PRN RECTAL 11/26/16 17:30 (Lactulose Liq) 30 ml DAILY PRN PO 11/26/16 17:30 Pharmacy Profile Note 0 ml @ 0 mls/hr UNSCH OTHER 11/26/16 17:45 (ZyrTEC) 10 mg DAILY PO 11/27/16 09:00 12/05/16 08:18 (Colace) 100 mg Q12H PO 11/26/16 21:00 12/05/16 08:19 (Habitrol 14 Mg Patch.24 Hr) 1 patch DAILY T-DERMAL 11/27/16 09:00 11/28/16 10:22 (Percocet 5-325 Mg) 1 tab Q4H PRN PO 11/26/16 18:15 12/04/16 05:54 (Rifampin) 300 mg Q12HR PO 11/26/16 21:00 12/05/16 08:19 (Effexor Xr) 37.5 mg DAILY PO 11/27/16 09:00 12/04/16 08:40 Miscellaneous Information 1 DAILY T-DERMAL 11/27/16 09:00 11/28/16 09:00 (Percocet 7.5-325 Mg) 1 tab Q4H PRN PO 11/27/16 12:00 12/05/16 06:18 (Ativan) 0.5 mg Q6H PRN PO 11/28/16 14:00 12/04/16 20:41 (KCl) 20 meq Q12HR PO 11/29/16 13:45 12/05/16 08:19 (Prinivil) 10 mg DAILY PO 12/01/16 13:30 12/04/16 08:40 Vancomycin HCl 1000 mg/Sodium Chloride 250 ml @ 250 mls/hr Q8H IV 12/02/16 14:00 12/05/16 06:19 Miscellaneous Information SPECIFIC LAB TO BE DRAWN:VANCOMYCIN TROUGH DATE TO... ONCE ONCE .XX 12/06/16 05:45 12/06/16 05:46 A/P Problem List: (1) Amphetamine use disorder, severe, dependence ICD Code: F15.20 - Other stimulant dependence, uncomplicated Status: Acute (2) Abscess in epidural space of lumbar spine ICD Code: G06.1 - Intraspinal abscess and granuloma Status: Acute (3) Osteomyelitis of cervical spine ICD Code: M46.22 - Osteomyelitis of vertebra, cervical region Status: Acute (4) Neck abscess ICD Code: L02.11 - Cutaneous abscess of neck Status: Acute (5) Infectious endocarditis ICD Code: I33.0 - Acute and subacute infective endocarditis Status: Acute (6) Bacteremia ICD Code: R78.81 - Bacteremia Status: Acute (7) Fever ICD Code: R50.9 - Fever, unspecified Status: Acute (8) IV drug abuse ICD Code: F19.10 - Other psychoactive substance abuse, uncomplicated Status: Acute Assessment and Plan 46-year-old female with a past medical history of IVDA, cervical osteomyelitis, endocarditis, lumbar abscesses who presented with agitation and altered mental status. Acute encephalopathy: On presentation. This is likely related to drug overdose. Urine drug screen positive for opiates and amphetamines. Encephalopathy have since resolved. 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 Source is MRSA bacteremia, cellulitis of left arm, possible ongoing cervical spine osteomyelitis. - Continue IV antibiotics. Appreciate infectious disease recommendations. Blood cultures are positive for MRSA. Repeat BCX shows no growth x 5 days. - TV endocarditis previously for both MRSA and MSSA - 2D echo 11/30 EF 35-40%, vegetation on the posterior leaflet of the tricuspid valve. Patient not candidate for PETER 2/2 cervical disease - As per ID recommendation vancomycin 4 weeks. Also on Rifampin. Continue to monitor creatinine. - Will need PICC line placement and set up an infusion center if patient is willing, and will stay clean of IV drugs. Cervical spine osteomyelitis: Diagnosed July 2016. Patient was evaluated by neurosurgery at that time. Continue cervical collar. - Appreciate neurosurgery recommendations. - Patient is not a good surgical candidate at this time due to ongoing IV drug abuse and high infection risk. Still complaining of neck pain, controlled. Tolerating soft collar. - MRI cervical spine 11/29 - Substantial improvement when compared to 08/06/16 substantial decrease in the amount of enhancement. - Ceretec tagged white cell study shows no abnormal white cell accumulation in the cervical spine. 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 MD discussed addiction issue with the patient. She is adamant that she does not abuse her prescriptions medication and reportedly had a relapse with amphetamines. - No changes should be made with her narcotics. Percocet 5/325mg q4hrs, Percocet 7.5mg/325mg q4hrs. Hypertension: - hypotensive, asymptomatic - Hold lisinopril - monitor BP DVT prophylaxis: Lovenox. Full code Discussed with patient, Dr. Myers Discharge Planning Per ID, patient will need 4 weeks of IV abx Luna Day Dec 05, 2016 09:57
[2016-12-05] MEDS: VENLAFAXINE HCL XR 37.5 MG CAP PO SCH (11:27)
[2016-12-05] MEDS: oxyCODONE/ACETAMINOPHEN 5 MG/325 MG TAB PO PRN ×2 (11:28→15:58)
[2016-12-05] MEDS: LORazepam 0.5 MG TAB PO PRN ×2 (14:10→23:21)
[2016-12-05] MEDS ORDERED: SODIUM CHLORID 0.9% 500 ML INJ 500 ML IV ONE (20:45)
[2016-12-05] MEDS: ENOXAPARIN SODIUM 40 MG/0.4 ML SYRINGE SQ SCH (21:19)
[2016-12-06] VITALS (7 sets, daily range): BP systolic 91–116; BP diastolic 52–59; PULSE 57–80; RESP 18–20; TEMP 98.1–98.6; O2SAT 97–98
[2016-12-06] MEDS ORDERED: PHARMACY ORDERED LAB ONE (05:45)
[2016-12-06] MEDS: SODIUM CHLORIDE 0.9% FLUSH 10 ML FLUSH IV FLUSH SCH ×2 (09:00→21:32)
[2016-12-06] MEDS: NICOTINE 14 MG/24 HR PATCH T-DERMAL SCH (09:00)
[2016-12-06] MEDS: REMOVE OLD PATCH T-DERMAL SCH (09:00)
[2016-12-06] MEDS: VENLAFAXINE HCL XR 37.5 MG CAP PO SCH (09:29)
[2016-12-06] MEDS: CETIRIZINE HCL 10 MG TAB PO SCH (09:30)
[2016-12-06] MEDS: POTASSIUM CHLORIDE 20 MEQ CONTROLLED RELEASE TAB PO SCH ×2 (09:30→21:31)
[2016-12-06] MEDS: DOCUSATE SODIUM 100 MG CAP PO SCH ×2 (09:30→21:30)
[2016-12-06] MEDS: RIFAMPIN 150 MG CAP PO SCH ×2 (09:30→21:31)
[2016-12-06] MEDS: oxyCODONE/ACETAMINOPHEN 7.5 MG/325 MG TAB PO PRN ×4 (09:31→21:31)
[2016-12-06 09:43] LABS: VANCOMYCIN TROUGH 32.7 MCG/ML (5.0-10.0)
--- NOTE | 2016-12-06 11:34 | HHI.PR ---
Subjective Remarks Follow-up sepsis/tricuspid valve endocarditis 12/06/16-patient seen and examined, afebrile in no acute event overnight. Denies any significant back pain Objective Vitals Vital Signs Date Time Temp Pulse Resp B/P (MAP) Pulse Ox O2 Delivery O2 Flow Rate FiO2 12/06/16 07:50 98.5 57 18 116/59 (78) 97 12/06/16 04:36 98.6 66 20 103/52 (69) 97 12/06/16 01:45 98.5 80 20 91/54 (66) 98 12/05/16 23:01 95/52 (66) 12/05/16 21:28 97.6 73 20 81/56 (64) 98 12/05/16 16:58 18 12/05/16 16:00 98.7 79 18 99/55 (70) 96 12/05/16 12:00 97.9 62 18 102/50 (67) 100 I/O 12/05/16 12/05/16 12/05/16 12/06/16 12/06/16 12/06/16 07:00 15:00 23:00 07:00 15:00 23:00 Intake Total 360 ml 250 ml 250 ml Output Total 4 ml Balance 360 ml 246 ml 250 ml Intake Oral 360 ml IV Total 250 ml 250 ml Output Urine Total 4 ml # Voids 2 1 # Bowel Movements 1 Result Diagram: 12/02/16 1003 12/06/16 0843 Imaging Last Impressions Tumor Localization 12/02/16 0000 Signed Impressions: Service Date/Time: Friday, December 02, 2016 16:43 - CONCLUSION: No abnormal white cell accumulation in the cervical spine. Luigi Thomas MD Cervical Spine MRI 11/29/16 0000 Signed Impressions: Service Date/Time: Tuesday, November 29, 2016 16:40 - CONCLUSION: Substantial improvement when compared to 08/06/16 substantial decrease in the amount of enhancement. Ceretec tagged white cell study may be of benefit to exclude residual inflammatory focus. Austin Dang MD FACR Cervical Spine CT 11/28/16 0000 Signed Impressions: Service Date/Time: Tuesday, November 29, 2016 11:22 - CONCLUSION: Stable changes when compared to 09/03/16. Spinal canal still remains adequate. Its difficult to assess the intra-and extradural components. A SPECT tagged white cell study with 3-D reconstructions could offer more information if continued infection is suspected. Austin Dang MD FACR Cervical Spine X-Ray 11/27/16 0000 Signed Impressions: Service Date/Time: October 14:02 - CONCLUSION: 1. Severe kyphosis centered at the C3 level approaching 90 which is mildly increased from the prior study. There is increased deformity of the inferior aspect of C2 with hypertrophic change and or soft tissue calcification. 2. Stable appearing deformity of the C3 vertebral body. 3. 4. Status post remote fusion of the C4- 5 and C6-7 levels. Reginald Michelle MD Chest X-Ray 11/26/16 1400 Signed Impressions: Service Date/Time: Saturday, November 26, 2016 14:22 - CONCLUSION: Prominent cardiac silhouette without suspicious lung lesions. Austin Dang MD FACR Objective Remarks GENERAL: NAD SKIN: Warm and dry. HEAD: Normocephalic. EYES: No scleral icterus. No injection or drainage. NECK: Supple, trachea midline. No JVD or lymphadenopathy. CARDIOVASCULAR: Regular rate and rhythm without murmurs, gallops, or rubs. RESPIRATORY: Breath sounds equal bilaterally. No accessory muscle use. GASTROINTESTINAL: Abdomen soft, non-tender, nondistended. MUSCULOSKELETAL: No cyanosis, or edema. BACK: tender without obvious deformity. No CVA tenderness. Procedures None A/P Problem List: (1) Amphetamine use disorder, severe, dependence ICD Code: F15.20 - Other stimulant dependence, uncomplicated Status: Acute (2) Abscess in epidural space of lumbar spine ICD Code: G06.1 - Intraspinal abscess and granuloma Status: Acute (3) Osteomyelitis of cervical spine ICD Code: M46.22 - Osteomyelitis of vertebra, cervical region Status: Acute (4) Neck abscess ICD Code: L02.11 - Cutaneous abscess of neck Status: Acute (5) Infectious endocarditis ICD Code: I33.0 - Acute and subacute infective endocarditis Status: Acute (6) Bacteremia ICD Code: R78.81 - Bacteremia Status: Acute (7) Fever ICD Code: R50.9 - Fever, unspecified Status: Resolved (8) IV drug abuse ICD Code: F19.10 - Other psychoactive substance abuse, uncomplicated Status: Chronic Assessment and Plan 46-year-old female with Acute encephalopathy: resolved. Sepsis/Tricuspid valve endocarditis on Echo: - Continue IV antibiotics. Appreciate infectious disease recommendations. Blood cultures are positive for MRSA. - TV endocarditis previously for both MRSA and MSSA - 2D echo 11/30 EF 35-40%, vegetation on the posterior leaflet of the tricuspid valve. Patient not candidate for PETER / cervical disease - As per ID recommendation vancomycin 4 weeks. Cervical spine osteomyelitis: Diagnosed July 2016. Continue cervical collar. - Appreciate neurosurgery recommendations. - Patient is not a good surgical candidate at this time due to ongoing IV drug abuse and high infection risk. - MRI cervical spine 11/29 - Substantial improvement when compared to 08/06/16 substantial decrease in the amount of enhancement. - Ceretec tagged white cell study shows no abnormal white cell accumulation in the cervical spine. 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 - No changes should be made with her narcotics. Percocet 5/325mg q4hrs, Percocet 7.5mg/325mg q4hrs. Hypertension: - hypotensive, asymptomatic - Hold lisinopril - monitor BP DVT prophylaxis: Lovenox. Full code Yvan Delgado MD Dec 06, 2016 11:34
[2016-12-06] MEDS: ENOXAPARIN SODIUM 40 MG/0.4 ML SYRINGE SQ SCH (21:32)
[2016-12-07] VITALS (8 sets, daily range): BP systolic 99–121; BP diastolic 54–64; PULSE 61–99; RESP 16–20; TEMP 97.7–99; O2SAT 96–99
[2016-12-07] MEDS: oxyCODONE/ACETAMINOPHEN 7.5 MG/325 MG TAB PO PRN ×5 (02:43→21:56)
[2016-12-07] MEDS: SODIUM CHLORIDE 0.9% FLUSH 10 ML FLUSH IV FLUSH SCH ×2 (09:00→21:50)
[2016-12-07] MEDS: NICOTINE 14 MG/24 HR PATCH T-DERMAL SCH (09:00)
[2016-12-07] MEDS: REMOVE OLD PATCH T-DERMAL SCH (09:00)
[2016-12-07] MEDS: DOCUSATE SODIUM 100 MG CAP PO SCH ×2 (09:32→21:50)
[2016-12-07] MEDS: CETIRIZINE HCL 10 MG TAB PO SCH (09:32)
[2016-12-07] MEDS: POTASSIUM CHLORIDE 20 MEQ CONTROLLED RELEASE TAB PO SCH ×2 (09:32→21:50)
[2016-12-07] MEDS: VENLAFAXINE HCL XR 37.5 MG CAP PO SCH (09:32)
[2016-12-07] MEDS: RIFAMPIN 150 MG CAP PO SCH ×2 (09:32→21:50)
--- NOTE | 2016-12-07 10:40 | HHI.PR ---
Subjective Remarks Follow-up sepsis/tricuspid valve endocarditis 12/06/16-patient seen and examined, afebrile in no acute event overnight. Denies any significant back pain 12/07/16-patient seen and examined, low BP however asymptomatic. Otherwise no other issues. Objective Vitals Vital Signs Date Time Temp Pulse Resp B/P (MAP) Pulse Ox O2 Delivery O2 Flow Rate FiO2 12/07/16 08:00 98.2 64 20 119/62 (81) 98 12/07/16 06:39 97.9 61 18 115/56 (75) 98 12/07/16 05:09 72 12/07/16 00:00 98.2 67 18 99/54 (69) 96 12/06/16 19:00 98.4 78 20 106/56 (73) 98 12/06/16 16:00 98.3 79 18 100/57 (71) 98 12/06/16 13:39 98/54 (69) 12/06/16 12:00 98.1 57 20 93/52 (66) 98 I/O 12/06/16 12/06/16 12/06/16 12/07/16 12/07/16 12/07/16 07:00 15:00 23:00 07:00 15:00 23:00 Intake Total 360 ml Balance 360 ml Intake Oral 360 ml # Voids 1 4 2 # Bowel Movements 2 Result Diagram: 12/06/16 0843 Objective Remarks GENERAL: NAD SKIN: Warm and dry. HEAD: Normocephalic. EYES: No scleral icterus. No injection or drainage. NECK: Supple, trachea midline. No JVD or lymphadenopathy. CARDIOVASCULAR: Regular rate and rhythm without murmurs, gallops, or rubs. RESPIRATORY: Breath sounds equal bilaterally. No accessory muscle use. GASTROINTESTINAL: Abdomen soft, non-tender, nondistended. MUSCULOSKELETAL: No cyanosis, or edema. BACK: tender without obvious deformity. No CVA tenderness. Procedures None A/P Problem List: (1) Amphetamine use disorder, severe, dependence ICD Code: F15.20 - Other stimulant dependence, uncomplicated Status: Acute (2) Abscess in epidural space of lumbar spine ICD Code: G06.1 - Intraspinal abscess and granuloma Status: Acute (3) Osteomyelitis of cervical spine ICD Code: M46.22 - Osteomyelitis of vertebra, cervical region Status: Acute (4) Neck abscess ICD Code: L02.11 - Cutaneous abscess of neck Status: Acute (5) Infectious endocarditis ICD Code: I33.0 - Acute and subacute infective endocarditis Status: Acute (6) Bacteremia ICD Code: R78.81 - Bacteremia Status: Acute (7) Fever ICD Code: R50.9 - Fever, unspecified Status: Resolved (8) IV drug abuse ICD Code: F19.10 - Other psychoactive substance abuse, uncomplicated Status: Chronic Assessment and Plan 46-year-old female with Acute encephalopathy: resolved. Sepsis/Tricuspid valve endocarditis on Echo: - Continue IV antibiotics. Appreciate infectious disease recommendations. Blood cultures are positive for MRSA. - TV endocarditis previously for both MRSA and MSSA - 2D echo 11/30 EF 35-40%, vegetation on the posterior leaflet of the tricuspid valve. Patient not candidate for PETER / cervical disease - As per ID recommendation vancomycin 4 weeks. Cervical spine osteomyelitis: Diagnosed July 2016. Continue cervical collar. - Appreciate neurosurgery recommendations. - Patient is not a good surgical candidate at this time due to ongoing IV drug abuse and high infection risk. - MRI cervical spine 11/29 - Substantial improvement when compared to 08/06/16 substantial decrease in the amount of enhancement. - Ceretec tagged white cell study shows no abnormal white cell accumulation in the cervical spine. RUE weakness/weak right volleyball player strength - no complaints of cervical radiculopathy - PT/OT eval/tx Chronic pain: She is an IV drug user. - Continue Percocet 5/325mg q4hrs, Percocet 7.5mg/325mg q4hrs. however secondary to low BP may increase frequency to every 6 Hypertension: - hypotensive, asymptomatic - Hold lisinopril - monitor BP DVT prophylaxis: Lovenox. Full code Yvan Delgado MD Dec 07, 2016 10:40
[2016-12-07] MEDS: VANCOMYCIN 1,000 MG/NS 250 ML IV SCH ×2 (12:21)
[2016-12-07] MEDS: LORazepam 0.5 MG TAB PO PRN (17:38)
[2016-12-07] MEDS: ENOXAPARIN SODIUM 40 MG/0.4 ML SYRINGE SQ SCH (21:50)
[2016-12-08] VITALS: BP 104/50; PULSE 84; RESP 17; TEMP 98.4; O2SAT 99
[2016-12-08] MEDS: VANCOMYCIN 1,000 MG/NS 250 ML IV SCH ×4 (00:21→12:11)
[2016-12-08 04:00] VITALS: BP 112/57; PULSE 69; RESP 16; TEMP 97.9; O2SAT 97
[2016-12-08] MEDS: oxyCODONE/ACETAMINOPHEN 7.5 MG/325 MG TAB PO PRN ×5 (06:33→22:54)
--- NOTE | 2016-12-08 08:57 | HHI.PR ---
Subjective Remarks Follow-up sepsis/tricuspid valve endocarditis 12/06/16-patient seen and examined, afebrile in no acute event overnight. Denies any significant back pain 12/07/16-patient seen and examined, low BP however asymptomatic. Otherwise no other issues. 12/08/16-patient seen and examined, no acute event overnight, afebrile and stable. Objective Vitals Vital Signs Date Time Temp Pulse Resp B/P (MAP) Pulse Ox O2 Delivery O2 Flow Rate FiO2 12/08/16 04:00 97.9 69 16 112/57 (75) 97 12/08/16 00:00 98.4 84 17 104/50 (68) 99 12/07/16 23:01 18 12/07/16 20:00 98.5 85 16 120/64 (82) 99 12/07/16 16:00 99.0 99 20 121/63 (82) 98 12/07/16 13:00 67 12/07/16 12:00 97.7 83 18 117/60 (79) 98 I/O 12/07/16 12/07/16 12/07/16 12/08/16 12/08/16 12/08/16 07:00 15:00 23:00 07:00 15:00 23:00 Intake Total 360 ml 2160 ml 730 ml Balance 360 ml 2160 ml 730 ml Intake Oral 360 ml 2160 ml 480 ml IV Total 250 ml # Voids 2 2 2 Result Diagram: 12/08/16716 Objective Remarks GENERAL: NAD SKIN: Warm and dry. HEAD: Normocephalic. EYES: No scleral icterus. No injection or drainage. NECK: Supple, trachea midline. No JVD or lymphadenopathy. CARDIOVASCULAR: Regular rate and rhythm without murmurs, gallops, or rubs. RESPIRATORY: Breath sounds equal bilaterally. No accessory muscle use. GASTROINTESTINAL: Abdomen soft, non-tender, nondistended. MUSCULOSKELETAL: No cyanosis, or edema. BACK: tender without obvious deformity. No CVA tenderness. Procedures None A/P Problem List: (1) Amphetamine use disorder, severe, dependence ICD Code: F15.20 - Other stimulant dependence, uncomplicated Status: Acute (2) Abscess in epidural space of lumbar spine ICD Code: G06.1 - Intraspinal abscess and granuloma Status: Acute (3) Osteomyelitis of cervical spine ICD Code: M46.22 - Osteomyelitis of vertebra, cervical region Status: Acute (4) Neck abscess ICD Code: L02.11 - Cutaneous abscess of neck Status: Acute (5) Infectious endocarditis ICD Code: I33.0 - Acute and subacute infective endocarditis Status: Acute (6) Bacteremia ICD Code: R78.81 - Bacteremia Status: Acute (7) Fever ICD Code: R50.9 - Fever, unspecified Status: Resolved (8) IV drug abuse ICD Code: F19.10 - Other psychoactive substance abuse, uncomplicated Status: Chronic Assessment and Plan 46-year-old female with Acute encephalopathy: resolved. 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 Patient not candidate for PETER 05/01 cervical disease - As per ID recommendation vancomycin 4 weeks. Cervical spine osteomyelitis: Diagnosed July 2016. Continue cervical collar. - Appreciate neurosurgery recommendations. - Patient is not a good surgical candidate at this time due to ongoing IV drug abuse and high infection risk. - MRI cervical spine 11/29 - Substantial improvement when compared to 08/06/16 substantial decrease in the amount of enhancement. - Ceretec tagged white cell study shows no abnormal white cell accumulation in the cervical spine. RUE weakness/weak right core winding operator strength - no complaints of cervical radiculopathy - PT/OT eval/tx Chronic pain: She is an IV drug user. - Continue Percocet 5/325mg q4hrs, Percocet 7.5mg/325mg q4hrs. however secondary to low BP may increase frequency to every 6 Hypertension: - Soft BP -Continue to Hold lisinopril - monitor BP DVT prophylaxis: Lovenox. Full code Yvan Delgado MD Dec 08, 2016 08:57
[2016-12-08] MEDS: NICOTINE 14 MG/24 HR PATCH T-DERMAL SCH (09:00)
[2016-12-08] MEDS: SODIUM CHLORIDE 0.9% FLUSH 10 ML FLUSH IV FLUSH SCH ×2 (09:00→21:32)
[2016-12-08] MEDS: REMOVE OLD PATCH T-DERMAL SCH (09:00)
[2016-12-08] MEDS: POTASSIUM CHLORIDE 20 MEQ CONTROLLED RELEASE TAB PO SCH ×2 (09:56→21:31)
[2016-12-08] MEDS: VENLAFAXINE HCL XR 37.5 MG CAP PO SCH (09:56)
[2016-12-08] MEDS: CETIRIZINE HCL 10 MG TAB PO SCH (09:56)
[2016-12-08] MEDS: DOCUSATE SODIUM 100 MG CAP PO SCH ×2 (09:56→21:31)
[2016-12-08] MEDS: RIFAMPIN 150 MG CAP PO SCH ×2 (09:56→21:31)
[2016-12-08 11:58] VITALS: BP 102/61; PULSE 79; RESP 20; TEMP 98; O2SAT 98
[2016-12-08 17:08] VITALS: BP 116/64; PULSE 88; RESP 18; TEMP 97.5; O2SAT 97
[2016-12-08 20:00] VITALS: BP 105/60; PULSE 81; RESP 18; TEMP 97.6; O2SAT 94
[2016-12-08] MEDS: ENOXAPARIN SODIUM 40 MG/0.4 ML SYRINGE SQ SCH (21:31)
[2016-12-08] MEDS ORDERED: PHARMACY ORDERED LAB ONE (23:45)
[2016-12-09] VITALS (7 sets, daily range): BP systolic 99–144; BP diastolic 50–87; PULSE 62–112; RESP 16–20; TEMP 97.3–98.4; O2SAT 94–99
[2016-12-09] MEDS: VANCOMYCIN 1,000 MG/NS 250 ML IV SCH ×4 (00:15→12:18)
[2016-12-09] MEDS: LORazepam 0.5 MG TAB PO PRN (00:16)
[2016-12-09] MEDS: oxyCODONE/ACETAMINOPHEN 7.5 MG/325 MG TAB PO PRN ×4 (06:26→23:57)
[2016-12-09] MEDS: NICOTINE 14 MG/24 HR PATCH T-DERMAL SCH (09:00)
[2016-12-09] MEDS: REMOVE OLD PATCH T-DERMAL SCH (09:00)
--- NOTE | 2016-12-09 09:11 | HHI.PR ---
Subjective Remarks Follow-up sepsis/tricuspid valve endocarditis 12/06/16-patient seen and examined, afebrile in no acute event overnight. Denies any significant back pain 12/07/16-patient seen and examined, low BP however asymptomatic. Otherwise no other issues. 12/08/16-patient seen and examined, no acute event overnight, afebrile and stable. 12/09/16-patient seen and examined, BP soft and stable. No acute event overnight. Objective Vitals Vital Signs Date Time Temp Pulse Resp B/P (MAP) Pulse Ox O2 Delivery O2 Flow Rate FiO2 12/09/16 07:59 97.7 65 20 118/73 (88) 99 12/09/16 04:00 98.2 62 18 109/66 (80) 98 12/09/16 00:00 97.3 78 18 102/50 (67) 94 12/08/16 23:54 18 12/08/16 20:00 97.6 81 18 105/60 (75) 94 12/08/16 20:00 97.6 81 18 105/60 (75) 94 12/08/16 17:08 97.5 88 18 116/64 (81) 97 12/08/16 11:58 98.0 79 20 102/61 (75) 98 I/O 12/08/16 12/08/16 12/08/16 12/09/16 12/09/16 12/09/16 07:00 15:00 23:00 07:00 15:00 23:00 Intake Total 730 ml 490 ml 250 ml Balance 730 ml 490 ml 250 ml Intake Oral 480 ml 240 ml IV Total 250 ml 250 ml 250 ml # Voids 2 5 5 # Bowel Movements 1 Result Diagram: 12/08/16 0717 Objective Remarks GENERAL: NAD SKIN: Warm and dry. HEAD: Normocephalic. EYES: No scleral icterus. No injection or drainage. NECK: Supple, trachea midline. No JVD or lymphadenopathy. CARDIOVASCULAR: Regular rate and rhythm without murmurs, gallops, or rubs. RESPIRATORY: Breath sounds equal bilaterally. No accessory muscle use. GASTROINTESTINAL: Abdomen soft, non-tender, nondistended. MUSCULOSKELETAL: No cyanosis, or edema. BACK: tender without obvious deformity. No CVA tenderness. Procedures None A/P Problem List: (1) Amphetamine use disorder, severe, dependence ICD Code: F15.20 - Other stimulant dependence, uncomplicated Status: Acute (2) Abscess in epidural space of lumbar spine ICD Code: G06.1 - Intraspinal abscess and granuloma Status: Acute (3) Osteomyelitis of cervical spine ICD Code: M46.22 - Osteomyelitis of vertebra, cervical region Status: Acute (4) Neck abscess ICD Code: L02.11 - Cutaneous abscess of neck Status: Acute (5) Infectious endocarditis ICD Code: I33.0 - Acute and subacute infective endocarditis Status: Acute (6) Bacteremia ICD Code: R78.81 - Bacteremia Status: Acute (7) Fever ICD Code: R50.9 - Fever, unspecified Status: Resolved (8) IV drug abuse ICD Code: F19.10 - Other psychoactive substance abuse, uncomplicated Status: Chronic Assessment and Plan 46-year-old female with Acute encephalopathy: resolved. 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 Patient not candidate for PETER 2/2 cervical disease - As per ID recommendation vancomycin 4 weeks. Cervical spine osteomyelitis: Diagnosed July 2016. Continue cervical collar. - Appreciate neurosurgery recommendations. - Patient is not a good surgical candidate at this time due to ongoing IV drug abuse and high infection risk. - MRI cervical spine 11/29 - Substantial improvement when compared to 08/06/16 substantial decrease in the amount of enhancement. - Ceretec tagged white cell study shows no abnormal white cell accumulation in the cervical spine. RUE weakness/weak right wire machine cutter strength - no complaints of cervical radiculopathy - PT/OT eval/tx Chronic pain: She is an IV drug user. - Continue Percocet 5/325mg q4hrs, Percocet 7.5mg/325mg q4hrs. Do not increase pain medications Hypertension: - Soft BP -Continue to Hold lisinopril DVT prophylaxis: Lovenox. Full code Yvan Delgado MD Dec 09, 2016 09:11
[2016-12-09] MEDS: POTASSIUM CHLORIDE 20 MEQ CONTROLLED RELEASE TAB PO SCH ×2 (09:58→21:31)
[2016-12-09] MEDS: DOCUSATE SODIUM 100 MG CAP PO SCH ×2 (09:58→21:32)
[2016-12-09] MEDS: VENLAFAXINE HCL XR 37.5 MG CAP PO SCH (09:58)
[2016-12-09] MEDS: CETIRIZINE HCL 10 MG TAB PO SCH (09:58)
[2016-12-09] MEDS: SODIUM CHLORIDE 0.9% FLUSH 10 ML FLUSH IV FLUSH SCH ×2 (10:00→21:32)
[2016-12-09] MEDS: RIFAMPIN 150 MG CAP PO SCH ×2 (10:06→21:31)
[2016-12-09] MEDS: ENOXAPARIN SODIUM 40 MG/0.4 ML SYRINGE SQ SCH (21:31)
[2016-12-10 04:39] VITALS: BP 125/68; PULSE 83; RESP 18; TEMP 98.7; O2SAT 99
[2016-12-10] MEDS: NICOTINE 14 MG/24 HR PATCH T-DERMAL SCH (09:00)
[2016-12-10] MEDS: SODIUM CHLORIDE 0.9% FLUSH 10 ML FLUSH IV FLUSH SCH ×2 (09:00→23:05)
[2016-12-10] MEDS: REMOVE OLD PATCH T-DERMAL SCH (09:00)
[2016-12-10 09:08] VITALS: BP 107/57; PULSE 75; RESP 20; TEMP 98.8; O2SAT 98
[2016-12-10] MEDS: RIFAMPIN 150 MG CAP PO SCH ×2 (09:25→23:04)
[2016-12-10] MEDS: POTASSIUM CHLORIDE 20 MEQ CONTROLLED RELEASE TAB PO SCH ×2 (09:26→23:04)
[2016-12-10] MEDS: CETIRIZINE HCL 10 MG TAB PO SCH (09:26)
[2016-12-10] MEDS: DOCUSATE SODIUM 100 MG CAP PO SCH ×2 (09:26→23:04)
[2016-12-10] MEDS: VENLAFAXINE HCL XR 37.5 MG CAP PO SCH (09:26)
[2016-12-10] MEDS: oxyCODONE/ACETAMINOPHEN 7.5 MG/325 MG TAB PO PRN ×4 (09:27→23:04)
[2016-12-10] MEDS: VANCOMYCIN 1,000 MG/NS 250 ML IV SCH ×6 (12:25→23:03)
[2016-12-10 12:46] VITALS: BP 110/62; PULSE 80; RESP 20; TEMP 97.7; O2SAT 97
--- NOTE | 2016-12-10 16:25 | HHI.NSPN ---
(Ino Marte) History Chief Complaint: Still with neck pain but it is better. (Ino Marte) Interval History The patient states that she is doing good. She continues to have some numbness to the hands and fingers along with weakness. She says she is doing her finger exercises. She does endorse some neck pain but states that it is better. (Ino Marte) System Review Comments Constitutional: Patient denies any fever or chills. HEENT: Patient denies any visual or hearing difficulty. Cardiovascular: Patient denies any chest pain, palpitations or irregular heartbeat. Respiratory: Patient denies any shortness of breath or productive cough. Gastrointestinal: Patient denies any abdominal pain, nausea, vomiting or incontinence of stool. Genitourinary: Patient denies any incontinence of urine. Musculoskeletal: Patient complains of neck pain that is better. She denies any back or extremity pain. Neurologic: Patient states that she has some numbness to both hands and the fingers with the right the worse. She denies any headache or dizziness. (Ino Marte) Exam Results 12/08/16 12/08/16 12/09/16 12/09/16 12/10/16 12/10/16 06:00 18:00 06:00 18:00 06:00 18:00 Intake Total 1450 ml 240 ml 500 ml 1210 ml 250 ml Balance 1450 ml 240 ml 500 ml 1210 ml 250 ml Intake Oral 1200 ml 240 ml 960 ml IV Total 250 ml 500 ml 250 ml 250 ml # Voids 4 3 7 2 # Bowel Movements 1 1 0 Vital Signs Date Time Temp Pulse Resp B/P (MAP) Pulse Ox O2 Delivery O2 Flow Rate FiO2 12/10/16 14:35 18 12/10/16 12:46 97.7 80 20 110/62 (78) 97 12/10/16 09:08 98.8 75 20 107/57 (74) 98 12/10/16 04:39 98.7 83 18 125/68 (87) 99 12/09/16 23:44 98.4 86 16 105/51 (69) 97 12/09/16 20:58 98.3 102 18 124/70 (88) 99 12/09/16 15:53 98.3 112 20 99/63 (75) 99 12/09/16 12:00 98.2 84 20 144/87 (106) 95 12/09/16 07:59 97.7 65 20 118/73 (88) 99 12/09/16 04:00 98.2 62 18 109/66 (80) 98 12/09/16 00:00 97.3 78 18 102/50 (67) 94 12/08/16 20:00 97.6 81 18 105/60 (75) 94 12/08/16 20:00 97.6 81 18 105/60 (75) 94 12/08/16 17:08 97.5 88 18 116/64 (81) 97 12/08/16 11:58 98.0 79 20 102/61 (75) 98 12/08/16 04:00 97.9 69 16 112/57 (75) 97 12/08/16 00:00 98.4 84 17 104/50 (68) 99 12/07/16 20:00 98.5 85 16 120/64 (82) 99 (Ino Marte) Physical Examination The patient is awake & alert. She readily interacts and not in any apparent distress. Her affect is normal. Oriented to person, place & time. Speech is clear & appropriate. Follows simple commands w/o any difficulty. Soft cervical collar in place, mildly TTP to midline cervical spine and right paraspinals. Sensation intact to light touch to all extremities except for both hands & digits which is decreased. Motor strength 5/5 to all major flexion & extension muscle groups. (Ino Marte) Medical Decision Making Impression and Plan Impression: 1. C3 osteomyelitis with severe collapse of the vertebral body, significant kyphosis. The C2-4 levels now appear to be undergoing spontaneous fusion. 2. Sepsis 3. Chronic IV drug abuse Due to spontaneous fusion and stability at the region of the kyphosis, no significant cervical myelopathy or radiculopathy, and adequately control pain symptoms as well as the patient's ongoing IV drug abuse with sepsis, it is not felt that surgical intervention is indicated at the present time. Patient is doing well overall with mild paresthesias to the hands. Stable from a neurosurgical standpoint. Plan: Plan of care discussed with patient. No surgical intervention indicated at present. Will follow intermittently while in the hospital. (Ino Marte) Attending Statement The exam, history, and the medical decision-making described in the above note were completed with the assistance of the mid-level provider. I reviewed and agree with the findings presented. I attest that I had a [id number] encounter with the patient on the same day, and personally performed and documented my assessment and findings in the medical record. Neurologic exam remained stable Imaging studies reviewed Discussed with infectious disease No neurosurgical intervention planned at this point. Patient remains at high risk for postoperative infection with any instrumentation placement. (Aravind Oliver MD) Ino Marte Dec 10, 2016 16:25 Aravind Oliver MD Jan 05, 2017 07:14
--- NOTE | 2016-12-10 16:43 | HHI.PR ---
Subjective Remarks Patient reports feeling better. Inquiring about when she will be able to go home. Objective Vitals Vital Signs Date Time Temp Pulse Resp B/P (MAP) Pulse Ox O2 Delivery O2 Flow Rate FiO2 12/10/16 14:35 18 12/10/16 12:46 97.7 80 20 110/62 (78) 97 12/10/16 09:08 98.8 75 20 107/57 (74) 98 12/10/16 04:39 98.7 83 18 125/68 (87) 99 12/09/16 23:44 98.4 86 16 105/51 (69) 97 12/09/16 20:58 98.3 102 18 124/70 (88) 99 I/O 12/09/16 12/09/16 12/09/16 12/10/16 12/10/16 12/10/16 07:00 15:00 23:00 07:00 15:00 23:00 Intake Total 250 ml 250 ml 960 ml 250 ml Balance 250 ml 250 ml 960 ml 250 ml Intake Oral 960 ml IV Total 250 ml 250 ml 250 ml # Voids 5 2 # Bowel Movements 1 0 Result Diagram: 12/10/16 1122 Objective Remarks GENERAL: This is a well-nourished, well-developed patient, in no apparent distress. CARDIOVASCULAR: Normal rate and regular rhythm without murmurs, gallops, or rubs. RESPIRATORY: Good respiratory efforts. Breath sounds equal and clear to auscultation bilaterally. GASTROINTESTINAL: Abdomen soft, non-tender, non-distended. Normal active bowel sounds NEURO: Alert & Oriented x4 to person, place, time, situation. Moves all ext x4 PSYCH: Appropriate mood and affect. Procedures None A/P Problem List: (1) Amphetamine use disorder, severe, dependence ICD Code: F15.20 - Other stimulant dependence, uncomplicated Status: Acute (2) Abscess in epidural space of lumbar spine ICD Code: G06.1 - Intraspinal abscess and granuloma Status: Acute (3) Osteomyelitis of cervical spine ICD Code: M46.22 - Osteomyelitis of vertebra, cervical region Status: Acute (4) Neck abscess ICD Code: L02.11 - Cutaneous abscess of neck Status: Acute (5) Infectious endocarditis ICD Code: I33.0 - Acute and subacute infective endocarditis Status: Acute (6) Bacteremia ICD Code: R78.81 - Bacteremia Status: Acute (7) Fever ICD Code: R50.9 - Fever, unspecified Status: Resolved (8) IV drug abuse ICD Code: F19.10 - Other psychoactive substance abuse, uncomplicated Status: Chronic Assessment and Plan 46-year-old female admitted for Acute encephalopathy: resolved. 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 Patient not candidate for PETER 2/2 cervical disease - As per ID recommendation, patient needs to continue vancomycin for 4 weeks. Cervical spine osteomyelitis: Diagnosed July 2016. Continue cervical collar. - Appreciate neurosurgery recommendations. - Patient is not a good surgical candidate at this time due to ongoing IV drug abuse and high infection risk. - MRI cervical spine 11/29 - Substantial improvement when compared to 08/06/16 substantial decrease in the amount of enhancement. - Ceretec tagged white cell study shows no abnormal white cell accumulation in the cervical spine. 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 - Continue Percocet 5/325mg q4hrs, Percocet 7.5mg/325mg q4hrs. no plans to escalate pain medications. Patient is aware of this. Hypertension: - Soft BP -Continue to Hold lisinopril DVT prophylaxis: Lovenox. Full code Ailyn Myers MD Dec 10, 2016 16:43
[2016-12-10 17:27] VITALS: BP 122/80; PULSE 80; RESP 20; TEMP 98.3; O2SAT 97
[2016-12-10 20:55] VITALS: BP 125/70; PULSE 99; RESP 16; TEMP 98.2; O2SAT 100
[2016-12-10] MEDS: ENOXAPARIN SODIUM 40 MG/0.4 ML SYRINGE SQ SCH (23:03)
[2016-12-11] MEDS: VANCOMYCIN 1,000 MG/NS 250 ML IV SCH ×4 (00:48→13:47)
[2016-12-11 01:03] VITALS: BP 98/55; PULSE 81; RESP 18; TEMP 99.1; O2SAT 98
[2016-12-11 04:34] VITALS: BP 118/70; PULSE 65; RESP 18; TEMP 98.6; O2SAT 96
[2016-12-11 08:07] VITALS: BP 128/70; PULSE 65; RESP 18; TEMP 98.8; O2SAT 98
[2016-12-11] MEDS: VENLAFAXINE HCL XR 37.5 MG CAP PO SCH (09:40)
[2016-12-11] MEDS: RIFAMPIN 150 MG CAP PO SCH ×2 (09:40→22:45)
[2016-12-11] MEDS: NICOTINE 14 MG/24 HR PATCH T-DERMAL SCH (09:41)
[2016-12-11] MEDS: oxyCODONE/ACETAMINOPHEN 7.5 MG/325 MG TAB PO PRN ×3 (09:41→18:19)
[2016-12-11] MEDS: POTASSIUM CHLORIDE 20 MEQ CONTROLLED RELEASE TAB PO SCH ×2 (09:41→22:45)
[2016-12-11] MEDS: CETIRIZINE HCL 10 MG TAB PO SCH (09:41)
[2016-12-11] MEDS: DOCUSATE SODIUM 100 MG CAP PO SCH ×2 (09:41→22:45)
[2016-12-11] MEDS: SODIUM CHLORIDE 0.9% FLUSH 10 ML FLUSH IV FLUSH SCH ×2 (09:41→21:00)
[2016-12-11] MEDS: REMOVE OLD PATCH T-DERMAL SCH (09:42)
[2016-12-11] MEDS ORDERED: PHARMACY ORDERED LAB ONE (11:45)
[2016-12-11 11:55] VITALS: BP 112/57; PULSE 70; RESP 18; TEMP 97.7; O2SAT 98
--- NOTE | 2016-12-11 14:28 | HHI.PR ---
Subjective Remarks Patient reports she is feeling okay. Afebrile. Anxious to go home. Objective Vitals Vital Signs Date Time Temp Pulse Resp B/P (MAP) Pulse Ox O2 Delivery O2 Flow Rate FiO2 12/11/16 11:55 97.7 70 18 112/57 (75) 98 12/11/16 08:07 98.8 65 18 128/70 (89) 98 12/11/16 04:34 98.6 65 18 118/70 (86) 96 12/11/16 01:03 99.1 81 18 98/55 (69) 98 12/10/16 20:55 98.2 99 16 125/70 (88) 100 12/10/16 17:27 98.3 80 20 122/80 (94) 97 12/10/16 14:35 18 I/O 12/10/16 12/10/16 12/10/16 12/11/16 12/11/16 12/11/16 07:00 15:00 23:00 07:00 15:00 23:00 Intake Total 250 ml 1020 ml Balance 250 ml 1020 ml Intake Oral 1020 ml IV Total 250 ml # Voids 2 4 2 # Bowel Movements 0 0 Result Diagram: 12/10/16 1122 Objective Remarks GENERAL: This is a well-nourished, well-developed patient, in no apparent distress. CARDIOVASCULAR: Normal rate and regular rhythm without murmurs, gallops, or rubs. RESPIRATORY: Good respiratory efforts. Breath sounds equal and clear to auscultation bilaterally. GASTROINTESTINAL: Abdomen soft, non-tender, non-distended. Normal active bowel sounds NEURO: Alert & Oriented x4 to person, place, time, situation. Moves all ext x4 PSYCH: Appropriate mood and affect. Procedures None A/P Problem List: (1) Amphetamine use disorder, severe, dependence ICD Code: F15.20 - Other stimulant dependence, uncomplicated Status: Acute (2) Abscess in epidural space of lumbar spine ICD Code: G06.1 - Intraspinal abscess and granuloma Status: Acute (3) Osteomyelitis of cervical spine ICD Code: M46.22 - Osteomyelitis of vertebra, cervical region Status: Acute (4) Neck abscess ICD Code: L02.11 - Cutaneous abscess of neck Status: Acute (5) Infectious endocarditis ICD Code: I33.0 - Acute and subacute infective endocarditis Status: Acute (6) Bacteremia ICD Code: R78.81 - Bacteremia Status: Acute (7) Fever ICD Code: R50.9 - Fever, unspecified Status: Resolved (8) IV drug abuse ICD Code: F19.10 - Other psychoactive substance abuse, uncomplicated Status: Chronic Assessment and Plan 46-year-old female admitted for Acute encephalopathy: resolved. 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 Patient not candidate for PETER / cervical disease - Discussed with infectious disease today. Plan to discharge the patient home on [facility] for a total of 3 weeks. Awaiting approval. Cervical spine osteomyelitis: Diagnosed July 2016. Continue cervical collar. - Appreciate neurosurgery recommendations. - Patient is not a good surgical candidate at this time due to ongoing IV drug abuse and high infection risk. - MRI cervical spine 11/29 - Substantial improvement when compared to 08/06/16 substantial decrease in the amount of enhancement. - Ceretec tagged white cell study shows no abnormal white cell accumulation in the cervical spine. RUE weakness/weak right cover remover strength - no complaints of cervical radiculopathy - PT/OT eval/tx Chronic pain: She is an IV drug user. - Continue Percocet 5/325mg q4hrs, Percocet 7.5mg/325mg q4hrs. no plans to escalate pain medications. Patient is aware of this. Hypertension: -BP has been on the low side -Continue to Hold lisinopril DVT prophylaxis: Lovenox. Full code Discharge Planning Plan to discharge home once arrangements made by ID for [facility] outpatient. Ailyn Myers MD Dec 11, 2016 14:28
[2016-12-11 16:08] VITALS: BP 132/85; PULSE 113; RESP 18; TEMP 97.6; O2SAT 99
[2016-12-11 20:34] VITALS: BP 147/79; PULSE 101; RESP 18; TEMP 99.3; O2SAT 98
[2016-12-11] MEDS: ENOXAPARIN SODIUM 40 MG/0.4 ML SYRINGE SQ SCH (22:45)
[2016-12-12] VITALS: BP 125/80; PULSE 99; RESP 16; TEMP 97.8; O2SAT 95
[2016-12-12 04:40] VITALS: BP 120/77; PULSE 88; RESP 18; TEMP 98.1; O2SAT 92
[2016-12-12 08:15] VITALS: BP 106/60; PULSE 78; RESP 16; TEMP 98.6; O2SAT 99
[2016-12-12] MEDS: DOCUSATE SODIUM 100 MG CAP PO SCH ×2 (09:01→22:17)
[2016-12-12] MEDS: VENLAFAXINE HCL XR 37.5 MG CAP PO SCH (09:01)
[2016-12-12] MEDS: NICOTINE 14 MG/24 HR PATCH T-DERMAL SCH (09:02)
[2016-12-12] MEDS: CETIRIZINE HCL 10 MG TAB PO SCH (09:02)
[2016-12-12] MEDS: SODIUM CHLORIDE 0.9% FLUSH 10 ML FLUSH IV FLUSH SCH ×2 (09:02→21:00)
[2016-12-12] MEDS: oxyCODONE/ACETAMINOPHEN 7.5 MG/325 MG TAB PO PRN ×4 (09:02→22:17)
[2016-12-12] MEDS: RIFAMPIN 150 MG CAP PO SCH ×2 (09:02→22:17)
[2016-12-12] MEDS: POTASSIUM CHLORIDE 20 MEQ CONTROLLED RELEASE TAB PO SCH ×2 (09:02→22:17)
[2016-12-12] MEDS: REMOVE OLD PATCH T-DERMAL SCH (09:02)
[2016-12-12 12:14] VITALS: BP 116/68; PULSE 72; RESP 17; TEMP 98.2; O2SAT 98
[2016-12-12] MEDS: VANCOMYCIN 1,000 MG/NS 250 ML IV SCH ×6 (12:58→23:28)
--- NOTE | 2016-12-12 16:08 | HHI.PR ---
Subjective Remarks Patient has no new complaints. Anxious to go home. Objective Vitals Vital Signs Date Time Temp Pulse Resp B/P (MAP) Pulse Ox O2 Delivery O2 Flow Rate FiO2 12/12/16 12:14 98.2 72 17 116/68 (84) 98 12/12/16 08:15 98.6 78 16 106/60 (75) 99 12/12/16 04:40 98.1 88 18 120/77 (91) 92 12/12/16 00:00 97.8 99 16 125/80 (95) 95 12/11/16 20:34 99.3 101 18 147/79 (101) 98 I/O 12/11/16 12/11/16 12/11/16 12/12/16 12/12/16 12/12/16 07:00 15:00 23:00 07:00 15:00 23:00 Intake Total 480 ml 720 ml Balance 480 ml 720 ml Intake Oral 480 ml 720 ml # Voids 2 3 3 5 # Bowel Movements 0 2 0 2 Result Diagram: 12/12/16 0949 Objective Remarks GENERAL: This is a well-nourished, well-developed patient, in no apparent distress. CARDIOVASCULAR: Normal rate and regular rhythm without murmurs, gallops, or rubs. RESPIRATORY: Good respiratory efforts. Breath sounds equal and clear to auscultation bilaterally. GASTROINTESTINAL: Abdomen soft, non-tender, non-distended. Normal active bowel sounds NEURO: Alert & Oriented x4 to person, place, time, situation. Moves all ext x4 PSYCH: Appropriate mood and affect. Procedures None A/P Problem List: (1) Amphetamine use disorder, severe, dependence ICD Code: F15.20 - Other stimulant dependence, uncomplicated Status: Acute (2) Abscess in epidural space of lumbar spine ICD Code: G06.1 - Intraspinal abscess and granuloma Status: Acute (3) Osteomyelitis of cervical spine ICD Code: M46.22 - Osteomyelitis of vertebra, cervical region Status: Acute (4) Neck abscess ICD Code: L02.11 - Cutaneous abscess of neck Status: Acute (5) Infectious endocarditis ICD Code: I33.0 - Acute and subacute infective endocarditis Status: Acute (6) Bacteremia ICD Code: R78.81 - Bacteremia Status: Acute (7) Fever ICD Code: R50.9 - Fever, unspecified Status: Resolved (8) IV drug abuse ICD Code: F19.10 - Other psychoactive substance abuse, uncomplicated Status: Chronic Assessment and Plan 46-year-old female admitted for Acute encephalopathy: resolved. 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 Patient not candidate for PETER / cervical disease - Discussed with infectious disease. Patient will require prolonged IV antibiotics. [facility] would be an option if her insurance would pay for it. So far no nursing facility or Home health agency willing to take this patient due to her history. Cervical spine osteomyelitis: Diagnosed July 2016. Continue cervical collar. - Appreciate neurosurgery recommendations. - Patient is not a good surgical candidate at this time due to ongoing IV drug abuse and high infection risk. - MRI cervical spine 11/29 - Substantial improvement when compared to 08/06/16 substantial decrease in the amount of enhancement. - Ceretec tagged white cell study shows no abnormal white cell accumulation in the cervical spine. RUE weakness/weak right head char filter tank tender strength - no complaints of cervical radiculopathy - PT/OT eval/tx Chronic pain: She is an IV drug user. - Continue Percocet 5/325mg q4hrs, Percocet 7.5mg/325mg q4hrs. no plans to escalate pain medications. Patient is aware of this. Hypertension: -BP has been on the low side -Continue to Hold lisinopril DVT prophylaxis: Lovenox. Full code Discharge Planning Needs prolonged IV antibiotics or [facility] if her insurance would pay for it. DW case management. May need to go to [facility]. Ailyn Myers MD Dec 12, 2016 16:08
[2016-12-12 16:25] VITALS: BP 106/61; PULSE 90; RESP 17; TEMP 97.4; O2SAT 99
[2016-12-12 20:00] VITALS: BP 120/70; PULSE 94; RESP 18; TEMP 99.6; O2SAT 95
[2016-12-12] MEDS: ENOXAPARIN SODIUM 40 MG/0.4 ML SYRINGE SQ SCH (22:17)
[2016-12-13] VITALS (7 sets, daily range): BP systolic 95–122; BP diastolic 54–77; PULSE 74–105; RESP 18–20; TEMP 97–98.8; O2SAT 97–99
[2016-12-13] MEDS: NICOTINE 14 MG/24 HR PATCH T-DERMAL SCH (10:57)
[2016-12-13] MEDS: VENLAFAXINE HCL XR 37.5 MG CAP PO SCH (10:58)
[2016-12-13] MEDS: RIFAMPIN 150 MG CAP PO SCH ×2 (10:58→20:51)
[2016-12-13] MEDS: DOCUSATE SODIUM 100 MG CAP PO SCH ×2 (10:58→20:53)
[2016-12-13] MEDS: REMOVE OLD PATCH T-DERMAL SCH (10:58)
[2016-12-13] MEDS: CETIRIZINE HCL 10 MG TAB PO SCH (10:58)
[2016-12-13] MEDS: POTASSIUM CHLORIDE 20 MEQ CONTROLLED RELEASE TAB PO SCH ×2 (10:58→20:52)
[2016-12-13] MEDS: oxyCODONE/ACETAMINOPHEN 7.5 MG/325 MG TAB PO PRN ×3 (10:59→20:52)
[2016-12-13] MEDS: VANCOMYCIN 1,000 MG/NS 250 ML IV SCH ×4 (10:59→23:51)
[2016-12-13] MEDS: SODIUM CHLORIDE 0.9% FLUSH 10 ML FLUSH IV FLUSH SCH ×2 (11:03→20:52)
--- NOTE | 2016-12-13 15:38 | HHI.PR ---
Subjective Remarks No new issues. Afebrile. Objective Vitals Vital Signs Date Time Temp Pulse Resp B/P (MAP) Pulse Ox O2 Delivery O2 Flow Rate FiO2 12/13/16 12:00 98.7 105 20 111/77 (88) 98 12/13/16 08:00 98.8 74 18 109/65 (80) 98 12/13/16 04:00 97.6 80 18 95/54 (68) 97 12/13/16 00:00 97.8 84 18 109/61 (77) 98 12/12/16 20:00 99.6 94 18 120/70 (87) 95 12/12/16 16:25 97.4 90 17 106/61 (76) 99 I/O 12/12/16 12/12/16 12/12/16 12/13/16 12/13/16 12/13/16 07:00 15:00 23:00 07:00 15:00 23:00 Intake Total 735 ml 500 ml Balance 735 ml 500 ml Intake Oral 720 ml IV Total 15 ml 500 ml # Voids 3 7 3 # Bowel Movements 0 2 Result Diagram: 12/12/16 0949 Objective Remarks GENERAL: This is a well-nourished, well-developed patient, in no apparent distress. CARDIOVASCULAR: Normal rate and regular rhythm without murmurs, gallops, or rubs. RESPIRATORY: Good respiratory efforts. Breath sounds equal and clear to auscultation bilaterally. GASTROINTESTINAL: Abdomen soft, non-tender, non-distended. Normal active bowel sounds NEURO: Alert & Oriented x4 to person, place, time, situation. Moves all ext x4 PSYCH: Appropriate mood and affect. Procedures None A/P Problem List: (1) Amphetamine use disorder, severe, dependence ICD Code: F15.20 - Other stimulant dependence, uncomplicated Status: Acute (2) Abscess in epidural space of lumbar spine ICD Code: G06.1 - Intraspinal abscess and granuloma Status: Acute (3) Osteomyelitis of cervical spine ICD Code: M46.22 - Osteomyelitis of vertebra, cervical region Status: Acute (4) Neck abscess ICD Code: L02.11 - Cutaneous abscess of neck Status: Acute (5) Infectious endocarditis ICD Code: I33.0 - Acute and subacute infective endocarditis Status: Acute (6) Bacteremia ICD Code: R78.81 - Bacteremia Status: Acute (7) Fever ICD Code: R50.9 - Fever, unspecified Status: Resolved (8) IV drug abuse ICD Code: F19.10 - Other psychoactive substance abuse, uncomplicated Status: Chronic Assessment and Plan 46-year-old female admitted for Acute encephalopathy: resolved. 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 Patient not candidate for PETER 05/01 cervical disease - Discussed with infectious disease. Patient will require prolonged IV antibiotics. [facility] would be an option if her insurance would pay for it. So far no nursing facility or Home health agency willing to take this patient due to her history. Case management following Cervical spine osteomyelitis: Diagnosed July 2016. Continue cervical collar. - Appreciate neurosurgery recommendations. - Patient is not a good surgical candidate at this time due to ongoing IV drug abuse and high infection risk. - MRI cervical spine 11/29 - Substantial improvement when compared to 08/06/16 substantial decrease in the amount of enhancement. - Ceretec tagged white cell study shows no abnormal white cell accumulation in the cervical spine. RUE weakness/weak right gifted program teacher strength - no complaints of cervical radiculopathy - PT/OT eval/tx Chronic pain: She is an IV drug user. - Continue Percocet 5/325mg q4hrs, Percocet 7.5mg/325mg q4hrs. no plans to escalate pain medications. Patient is aware of this. Hypertension: -BP has been on the low side -Continue to Hold lisinopril DVT prophylaxis: Lovenox. Full code Discharge Planning Needs prolonged IV antibiotics or [facility] if her insurance would pay for it. DW case management. May need to go to [place]. Ailyn Myers MD Dec 13, 2016 15:38
[2016-12-13] MEDS: ENOXAPARIN SODIUM 40 MG/0.4 ML SYRINGE SQ SCH (20:51)
[2016-12-14] MEDS: oxyCODONE/ACETAMINOPHEN 7.5 MG/325 MG TAB PO PRN ×6 (01:37→22:45)
[2016-12-14 04:00] VITALS: BP 137/75; PULSE 86; RESP 19; TEMP 98; O2SAT 98
[2016-12-14 08:05] VITALS: BP 108/66; PULSE 82; RESP 16; TEMP 98.7; O2SAT 98
[2016-12-14] MEDS: REMOVE OLD PATCH T-DERMAL SCH (09:00)
[2016-12-14] MEDS: NICOTINE 14 MG/24 HR PATCH T-DERMAL SCH (09:00)
[2016-12-14] MEDS: SODIUM CHLORIDE 0.9% FLUSH 10 ML FLUSH IV FLUSH SCH ×2 (10:02→22:45)
[2016-12-14] MEDS: CETIRIZINE HCL 10 MG TAB PO SCH (10:03)
[2016-12-14] MEDS: VENLAFAXINE HCL XR 37.5 MG CAP PO SCH (10:04)
[2016-12-14] MEDS: RIFAMPIN 150 MG CAP PO SCH ×2 (10:04→22:44)
[2016-12-14] MEDS: DOCUSATE SODIUM 100 MG CAP PO SCH ×2 (10:04→22:45)
--- NOTE | 2016-12-14 10:47 | HHI.PR ---
Subjective Remarks Follow up tricuspid valve endocarditis, cervical spine osteomyelitis, and hypertension. Patient seen and examined. Sitting up on side of bed, in no apparent distress. Denies any new acute complaints overnight. Tolerating PO intake, denies any nausea, vomiting or diarrhea. Positive BM. Pain well controlled. Eager to get home and determine treatment plan. Objective Vitals Vital Signs Date Time Temp Pulse Resp B/P (MAP) Pulse Ox O2 Delivery O2 Flow Rate FiO2 12/14/16 08:05 98.7 82 16 108/66 (80) 98 12/14/16 04:00 98.0 86 19 137/75 (95) 98 12/13/16 23:53 98.1 18 116/69 (85) 97 12/13/16 20:00 97.0 85 19 112/70 (84) 98 12/13/16 16:00 97.8 89 20 122/75 (91) 99 12/13/16 12:00 98.7 105 20 111/77 (88) 98 I/O 12/13/16 12/13/16 12/13/16 12/14/16 12/14/16 12/14/16 07:00 15:00 23:00 07:00 15:00 23:00 Intake Total 500 ml 320 ml 240 ml Balance 500 ml 320 ml 240 ml Intake Oral 320 ml 240 ml IV Total 500 ml # Voids 3 4 2 1 # Bowel Movements 1 Result Diagram: 12/12/16 0949 Imaging Last Impressions Tumor Localization 12/02/16 0000 Signed Impressions: Service Date/Time: Friday, December 02, 2016 16:43 - CONCLUSION: No abnormal white cell accumulation in the cervical spine. Luigi Thomas MD Cervical Spine MRI 11/29/16 0000 Signed Impressions: Service Date/Time: Tuesday, November 29, 2016 16:40 - CONCLUSION: Substantial improvement when compared to 08/06/16 substantial decrease in the amount of enhancement. Ceretec tagged white cell study may be of benefit to exclude residual inflammatory focus. Austin Dang MD FACR Cervical Spine CT 11/28/16 0000 Signed Impressions: Service Date/Time: Tuesday, November 29, 2016 11:22 - CONCLUSION: Stable changes when compared to 09/03/16. Spinal canal still remains adequate. Its difficult to assess the intra-and extradural components. A SPECT tagged white cell study with 3-D reconstructions could offer more information if continued infection is suspected. Austin Dang MD FACR Cervical Spine X-Ray 11/27/16 0000 Signed Impressions: Service Date/Time: October 14:02 - CONCLUSION: 1. Severe kyphosis centered at the C3 level approaching 90 which is mildly increased from the prior study. There is increased deformity of the inferior aspect of C2 with hypertrophic change and or soft tissue calcification. 2. Stable appearing deformity of the C3 vertebral body. 3. 4. Status post remote fusion of the C4- 5 and C6-7 levels. Reginald Michelle MD Chest X-Ray 11/26/16 1400 Signed Impressions: Service Date/Time: Saturday, November 26, 2016 14:22 - CONCLUSION: Prominent cardiac silhouette without suspicious lung lesions. Austin Dang MD FACR Objective Remarks GENERAL: Well-developed well-nourished female patient, sitting on side of bed in no acute distress. SKIN: Multiple track mercado of the upper extremities. Scars present. Small dried scabs of the upper and lower extremities. HEENT: Normocephalic. Pupils equal and reactive. Mucous membranes pink and moist. Tongue midline. NECK SUPPLE NO JVD. Supple. Cervical collar on. CARDIOVASCULAR: Regular rate and rhythm. No murmur appreciated. S1, S2 NO S3 OR S4 NO THRILL OR BRUIT RESPIRATORY: No accessory muscle use. Clear to auscultation. Breath sounds equal bilaterally. GASTROINTESTINAL: Abdomen soft, non-tender, nondistended. Bowel sounds x4. MUSCULOSKELETAL: No obvious deformities. No clubbing or cyanosis. No edema. NEUROLOGICAL: Awake, alert and oriented x 3. Moves upper and lower extremities spontaneously. Follows all commands. 4/5 muscle strength in bilateral upper and lower extremities. Procedures None A/P Problem List: (1) Amphetamine use disorder, severe, dependence ICD Code: F15.20 - Other stimulant dependence, uncomplicated Status: Acute (2) Abscess in epidural space of lumbar spine ICD Code: G06.1 - Intraspinal abscess and granuloma Status: Acute (3) Osteomyelitis of cervical spine ICD Code: M46.22 - Osteomyelitis of vertebra, cervical region Status: Acute (4) Neck abscess ICD Code: L02.11 - Cutaneous abscess of neck Status: Acute (5) Infectious endocarditis ICD Code: I33.0 - Acute and subacute infective endocarditis Status: Acute (6) Bacteremia ICD Code: R78.81 - Bacteremia Status: Acute (7) Fever ICD Code: R50.9 - Fever, unspecified Status: Resolved (8) IV drug abuse ICD Code: F19.10 - Other psychoactive substance abuse, uncomplicated Status: Chronic Assessment and Plan 46-year-old female admitted for Acute encephalopathy: resolved. 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 Patient not candidate for PETER 05/01 cervical disease - ID following patient. Patient will require prolonged IV antibiotics. [facility] would be an option if her insurance would pay for it. So far no nursing facility or Home health agency willing to take this patient due to her history. Case management following. Cervical spine osteomyelitis: Diagnosed July 2016. Continue cervical collar. - Appreciate neurosurgery recommendations. - Patient is not a good surgical candidate at this time due to ongoing IV drug abuse and high infection risk. - MRI cervical spine 11/29 - Substantial improvement when compared to 08/06/16 substantial decrease in the amount of enhancement. - Ceretec tagged white cell study shows no abnormal white cell accumulation in the cervical spine. RUE weakness/weak right client service consultant strength - no complaints of cervical radiculopathy. Pain well controlled. Denies any numbness or tingling in upper extremities. - PT/OT eval/tx Chronic pain: She is an IV drug user. - Continue Percocet 5/325mg q4hrs, Percocet 7.5mg/325mg q4hrs. no plans to escalate pain medications. Patient is aware of this. Hypertension: - Will controlled at this time. Will continue to monitor BPs. -Continue to Hold lisinopril BMP and CBC pending this am. Follow. DVT prophylaxis: Lovenox. Full code Discharge Planning Last CM note: 12/11: PER DR WILSON, DR WAGNER EXPLORING POSSIBILITY OF ARRANGING 3 WEEKLY IV DOSES OF D[facility]. PT HAS [employer]OLD FOR PAYOR. MD'S AWARE OF HX OF MESSING WITH PICC. Blanca Aldana Dec 14, 2016 10:47
[2016-12-14 12:46] VITALS: BP 129/71; PULSE 96; RESP 18; TEMP 98.7; O2SAT 97
[2016-12-14 14:08] LABS: HEMATOCRIT 31.4 % (35.0-46.0); MEAN CORPUSCULAR HEMOGLOBIN 18.9 PG (27.0-34.0); MEAN CORPUSCULAR HGB CONC 31.1 % (32.0-36.0); PLATELET COUNT 270 TH/MM3 (150-450); RED BLOOD COUNT 5.15 MIL/MM3 (4.00-5.30); REVIEW FLAG FINAL; WHITE BLOOD COUNT 5.3 TH/MM3 (4.0-11.0)
[2016-12-14] MEDS: VANCOMYCIN 1,000 MG/NS 250 ML IV SCH ×4 (14:08→23:55)
[2016-12-14 14:31] LABS: BICARBONATE 28.7 MEQ/L (21.0-32.0); POTASSIUM 4.1 MEQ/L (3.5-5.1)
[2016-12-14 16:00] VITALS: BP 117/74; PULSE 107; RESP 16; TEMP 98; O2SAT 98
[2016-12-14 21:25] VITALS: BP 102/59; PULSE 100; RESP 19; TEMP 98.8
[2016-12-14] MEDS: ENOXAPARIN SODIUM 40 MG/0.4 ML SYRINGE SQ SCH (22:44)
[2016-12-15 00:06] VITALS: BP 101/56; PULSE 92; RESP 19; TEMP 98.2; O2SAT 95
[2016-12-15 04:30] VITALS: BP 107/54; PULSE 70; RESP 19; TEMP 98; O2SAT 95
[2016-12-15] MEDS: oxyCODONE/ACETAMINOPHEN 7.5 MG/325 MG TAB PO PRN ×5 (05:32→22:15)
[2016-12-15 08:00] VITALS: BP 109/64; PULSE 78; RESP 16; TEMP 98.6; O2SAT 95
[2016-12-15] MEDS: NICOTINE 14 MG/24 HR PATCH T-DERMAL SCH (09:00)
[2016-12-15] MEDS: REMOVE OLD PATCH T-DERMAL SCH (09:00)
[2016-12-15] MEDS: SODIUM CHLORIDE 0.9% FLUSH 10 ML FLUSH IV FLUSH SCH ×2 (09:00→22:16)
[2016-12-15] MEDS: RIFAMPIN 150 MG CAP PO SCH ×2 (09:25→22:15)
[2016-12-15] MEDS: CETIRIZINE HCL 10 MG TAB PO SCH (09:25)
[2016-12-15] MEDS: DOCUSATE SODIUM 100 MG CAP PO SCH ×2 (09:26→22:13)
[2016-12-15] MEDS: VENLAFAXINE HCL XR 37.5 MG CAP PO SCH (09:26)
[2016-12-15 12:00] VITALS: BP 123/70; PULSE 83; RESP 16; TEMP 98.8; O2SAT 94
[2016-12-15] MEDS: VANCOMYCIN 1,000 MG/NS 250 ML IV SCH ×4 (12:56→23:04)
--- NOTE | 2016-12-15 13:13 | HHI.PR ---
Subjective Remarks Follow up tricuspid valve endocarditis, cervical spine osteomyelitis, and hypertension. Patient seen and examined lying in bed comfortably. Daughter at bedside. Denies any new acute complaints overnight. Denies any recent fever, chill, cough, shortness of breath, ab pain, n/v/d, dysuria. Objective Vitals Vital Signs Date Time Temp Pulse Resp B/P (MAP) Pulse Ox O2 Delivery O2 Flow Rate FiO2 12/15/16 12:00 98.8 83 16 123/70 (87) 94 12/15/16 08:00 98.6 78 16 109/64 (79) 95 12/15/16 04:30 98.0 70 19 107/54 (71) 95 12/15/16 00:06 98.2 92 19 101/56 (71) 95 12/14/16 21:25 98.8 100 19 102/59 (73) 12/14/16 16:00 98.0 107 16 117/74 (88) 98 I/O 12/14/16 12/14/16 12/14/16 12/15/16 12/15/16 12/15/16 07:00 15:00 23:00 07:00 15:00 23:00 Intake Total 240 ml 250 ml Balance 240 ml 250 ml Intake Oral 240 ml IV Total 250 ml # Voids 1 1 Result Diagram: 12/14/16 1322 12/14/16 1322 Imaging Last Impressions Tumor Localization 12/02/16 0000 Signed Impressions: Service Date/Time: Friday, December 02, 2016 16:43 - CONCLUSION: No abnormal white cell accumulation in the cervical spine. Luigi Thomas MD Cervical Spine MRI 11/29/16 0000 Signed Impressions: Service Date/Time: Tuesday, November 29, 2016 16:40 - CONCLUSION: Substantial improvement when compared to 08/06/16 substantial decrease in the amount of enhancement. Ceretec tagged white cell study may be of benefit to exclude residual inflammatory focus. Austin Dang MD FACR Cervical Spine CT 11/28/16 0000 Signed Impressions: Service Date/Time: Tuesday, November 29, 2016 11:22 - CONCLUSION: Stable changes when compared to 09/03/16. Spinal canal still remains adequate. Its difficult to assess the intra-and extradural components. A SPECT tagged white cell study with 3-D reconstructions could offer more information if continued infection is suspected. Austin Dang MD FACR Cervical Spine X-Ray 11/27/16 0000 Signed Impressions: Service Date/Time: October 14:02 - CONCLUSION: 1. Severe kyphosis centered at the C3 level approaching 90 which is mildly increased from the prior study. There is increased deformity of the inferior aspect of C2 with hypertrophic change and or soft tissue calcification. 2. Stable appearing deformity of the C3 vertebral body. 3. 4. Status post remote fusion of the C4- 5 and C6-7 levels. Reginald Michelle MD Chest X-Ray 11/26/16 1400 Signed Impressions: Service Date/Time: Saturday, November 26, 2016 14:22 - CONCLUSION: Prominent cardiac silhouette without suspicious lung lesions. Austin Dang MD FACR Objective Remarks GENERAL: Well-developed well-nourished female patient, sitting on side of bed in no acute distress. SKIN: Multiple track mercado of the upper extremities. Scars present. Small dried scabs of the upper and lower extremities. HEENT: Normocephalic. Pupils equal and reactive. Mucous membranes pink and moist. Tongue midline. NECK SUPPLE NO JVD. Supple. Cervical collar on. CARDIOVASCULAR: Regular rate and rhythm. No murmur appreciated. S1, S2 NO S3 OR S4 NO THRILL OR BRUIT RESPIRATORY: No accessory muscle use. Clear to auscultation. Breath sounds equal bilaterally. GASTROINTESTINAL: Abdomen soft, non-tender, nondistended. Bowel sounds x4. MUSCULOSKELETAL: No obvious deformities. No clubbing or cyanosis. No edema. NEUROLOGICAL: Awake, alert and oriented x 3. Moves upper and lower extremities spontaneously. Follows all commands. 4/5 muscle strength in bilateral upper and lower extremities. Procedures None A/P Problem List: (1) Amphetamine use disorder, severe, dependence ICD Code: F15.20 - Other stimulant dependence, uncomplicated Status: Acute (2) Abscess in epidural space of lumbar spine ICD Code: G06.1 - Intraspinal abscess and granuloma Status: Acute (3) Osteomyelitis of cervical spine ICD Code: M46.22 - Osteomyelitis of vertebra, cervical region Status: Acute (4) Neck abscess ICD Code: L02.11 - Cutaneous abscess of neck Status: Acute (5) Infectious endocarditis ICD Code: I33.0 - Acute and subacute infective endocarditis Status: Acute (6) Bacteremia ICD Code: R78.81 - Bacteremia Status: Acute (7) Fever ICD Code: R50.9 - Fever, unspecified Status: Resolved (8) IV drug abuse ICD Code: F19.10 - Other psychoactive substance abuse, uncomplicated Status: Chronic Assessment and Plan 46-year-old female admitted for Acute encephalopathy: resolved. 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 Patient not candidate for PETER / cervical disease - ID following patient. Spoke to Dr. Carlos about plan for patient. Patient will require prolonged IV antibiotics. So far no nursing facility or Home health agency willing to take this patient due to her history. Case management following and updated on being a candidate for [facility]. Will explore option of transferring patient to [facility] to finish her IV antibiotics, stop date will be December to complete 4 weeks of antibiotic treatment. CM to continue to follow. Cervical spine osteomyelitis: Diagnosed July 2016. Continue cervical collar. - Appreciate neurosurgery recommendations. - Patient is not a good surgical candidate at this time due to ongoing IV drug abuse and high infection risk. - MRI cervical spine 11/29 - Substantial improvement when compared to 08/06/16 substantial decrease in the amount of enhancement. - Ceretec tagged white cell study shows no abnormal white cell accumulation in the cervical spine. RUE weakness/weak right drug inspector strength - no complaints of cervical radiculopathy. Pain well controlled. Denies any numbness or tingling in upper extremities. - PT/OT eval/tx Chronic pain: She is an IV drug user. - Continue Percocet 5/325mg q4hrs, Percocet 7.5mg/325mg q4hrs. no plans to escalate pain medications. Patient is aware of this. Hypertension: - Will controlled at this time. Will continue to monitor BPs. -Continue to Hold lisinopril BMP and CBC pending this am. Follow. DVT prophylaxis: Lovenox. Full code Discharge Planning Difficult discharge. CM assisting. Blanca Gallagher Dec 15, 2016 13:12
[2016-12-15 16:00] VITALS: BP 109/62; PULSE 118; RESP 16; TEMP 97.8; O2SAT 95
[2016-12-15 20:30] VITALS: BP 119/58; PULSE 100; RESP 19; TEMP 98.3; O2SAT 98
[2016-12-15] MEDS: ENOXAPARIN SODIUM 40 MG/0.4 ML SYRINGE SQ SCH (22:16)
[2016-12-16] VITALS (8 sets, daily range): BP systolic 94–142; BP diastolic 54–83; PULSE 85–112; RESP 16–19; TEMP 98.1–99.1; O2SAT 93–99
[2016-12-16] MEDS: oxyCODONE/ACETAMINOPHEN 7.5 MG/325 MG TAB PO PRN ×4 (04:52→18:41)
[2016-12-16] MEDS: REMOVE OLD PATCH T-DERMAL SCH (09:00)
[2016-12-16] MEDS: NICOTINE 14 MG/24 HR PATCH T-DERMAL SCH (09:00)
[2016-12-16] MEDS: CETIRIZINE HCL 10 MG TAB PO SCH (09:53)
[2016-12-16] MEDS: RIFAMPIN 150 MG CAP PO SCH ×2 (09:53→20:26)
[2016-12-16] MEDS: VENLAFAXINE HCL XR 37.5 MG CAP PO SCH (09:54)
[2016-12-16] MEDS: SODIUM CHLORIDE 0.9% FLUSH 10 ML FLUSH IV FLUSH SCH ×2 (09:55→20:26)
[2016-12-16] MEDS: DOCUSATE SODIUM 100 MG CAP PO SCH ×2 (10:00→20:26)
--- NOTE | 2016-12-16 11:37 | HHI.PR ---
Subjective Remarks Follow up tricuspid valve endocarditis, cervical spine osteomyelitis, and hypertension. Patient seen and examined. Patient stated "I'm just waking up" at time of interview. She reported a bout of emesis last night and attributed this to "something I ate ". She also reported "sweating" last night. She denied fever. Patient stated she was wanted to go home as soon as possible. She otherwise denied any new acute complaints overnight. Pt denied, chill, cough, shortness of breath, abdominal/chest pain, diarrhea, dysuria. Per RN (Mitch) pt is only requesting pain medication. Pain, per RN is being controlled with current regimen. Objective Vitals Vital Signs Date Time Temp Pulse Resp B/P (MAP) Pulse Ox O2 Delivery O2 Flow Rate FiO2 12/16/16 08:00 99.1 102 18 95/58 (70) 94 12/16/16 04:15 98.6 104 18 106/55 (72) 93 12/16/16 00:30 98.6 105 19 102/63 (76) 93 12/15/16 20:30 98.3 100 19 119/58 (78) 98 12/15/16 16:00 97.8 118 16 109/62 (78) 95 12/15/16 12:00 98.8 83 16 123/70 (87) 94 I/O 12/15/16 12/15/16 12/15/16 12/16/16 12/16/16 12/16/16 06:59 14:59 22:59 06:59 14:59 22:59 Intake Total 960 ml Balance 960 ml Intake Oral 960 ml # Voids 1 4 # Bowel Movements 1 Result Diagram: 12/14/16 1322 12/14/16 1322 Imaging Last Impressions Tumor Localization 12/02/16 0000 Signed Impressions: Service Date/Time: Friday, December 02, 2016 16:43 - CONCLUSION: No abnormal white cell accumulation in the cervical spine. Luigi Thomas MD Cervical Spine MRI 11/29/16 0000 Signed Impressions: Service Date/Time: Tuesday, November 29, 2016 16:40 - CONCLUSION: Substantial improvement when compared to 08/06/16 substantial decrease in the amount of enhancement. Ceretec tagged white cell study may be of benefit to exclude residual inflammatory focus. Austin Dang MD FACR Cervical Spine CT 11/28/16 0000 Signed Impressions: Service Date/Time: Tuesday, November 29, 2016 11:22 - CONCLUSION: Stable changes when compared to 09/03/16. Spinal canal still remains adequate. Its difficult to assess the intra-and extradural components. A SPECT tagged white cell study with 3-D reconstructions could offer more information if continued infection is suspected. Austin Dang MD FACR Cervical Spine X-Ray 11/27/16 0000 Signed Impressions: Service Date/Time: October 14:02 - CONCLUSION: 1. Severe kyphosis centered at the C3 level approaching 90 which is mildly increased from the prior study. There is increased deformity of the inferior aspect of C2 with hypertrophic change and or soft tissue calcification. 2. Stable appearing deformity of the C3 vertebral body. 3. 4. Status post remote fusion of the C4- 5 and C6-7 levels. Reginald Michelle MD Chest X-Ray 11/26/16 1400 Signed Impressions: Service Date/Time: Saturday, November 26, 2016 14:22 - CONCLUSION: Prominent cardiac silhouette without suspicious lung lesions. Austin Dang MD FACR Objective Remarks GENERAL: Pt encountered laying a bed, NAD. SKIN: Warm and dry. HEAD: Normocephalic. EYES: No scleral icterus. No injection or drainage. NECK: Supple, trachea midline. No lymphadenopathy. CARDIOVASCULAR: Tachycardic rate (114) and regular rhythm without murmurs, gallops, or rubs. RESPIRATORY: Breath sounds equal bilaterally. No accessory muscle use. GASTROINTESTINAL: Abdomen soft, non-tender, nondistended. MUSCULOSKELETAL: No cyanosis, or edema. PSYCHIATRIC: Mood and affect appropriate. Insight and judgment adequate. Pt was pleasant and cooperative. Speech was clear and fluent. Procedures None Medications and IVs Current Medications Medications (Trade) Dose Ordered Sig/Declan Route Start Time Stop Time Status Last Admin (NS Flush) 2 ml UNSCH PRN IV FLUSH 11/26/16 17:30 12/08/16 21:31 (NS Flush) 2 ml BID IV FLUSH 11/26/16 21:00 12/16/16 09:55 (Tylenol) 650 mg Q4H PRN PO 11/26/16 17:30 (Lovenox Inj) 40 mg Q24H SQ 11/26/16 20:00 12/15/16 22:16 (Narcan Inj) 0.4 mg UNSCH PRN IV 11/26/16 17:30 (Milk Of Magnesia Liq) 30 ml Q12H PRN PO 11/26/16 17:30 (Senokot) 17.2 mg Q12H PRN PO 11/26/16 17:30 (Dulcolax Supp) 10 mg DAILY PRN RECTAL 11/26/16 17:30 (Lactulose Liq) 30 ml DAILY PRN PO 11/26/16 17:30 Pharmacy Profile Note 0 ml @ 0 mls/hr UNSCH OTHER 11/26/16 17:45 (ZyrTEC) 10 mg DAILY PO 11/27/16 09:00 12/16/16 09:53 (Colace) 100 mg Q12H PO 11/26/16 21:00 12/16/16 10:00 (Habitrol 14 Mg Patch.24 Hr) 1 patch DAILY T-DERMAL 11/27/16 09:00 11/28/16 10:22 (Percocet 5-325 Mg) 1 tab Q4H PRN PO 11/26/16 18:15 12/05/16 15:58 (Rifampin) 300 mg Q12HR PO 11/26/16 21:00 12/16/16 09:53 (Effexor Xr) 37.5 mg DAILY PO 11/27/16 09:00 12/16/16 09:54 Miscellaneous Information 1 DAILY T-DERMAL 11/27/16 09:00 11/28/16 09:00 (Percocet 7.5-325 Mg) 1 tab Q4H PRN PO 11/27/16 12:00 12/16/16 09:55 (Ativan) 0.5 mg Q6H PRN PO 11/28/16 14:00 12/09/16 00:16 (Prinivil) 10 mg DAILY PO 12/01/16 13:30 Future Hold 12/04/16 08:40 Vancomycin HCl 1000 mg/Sodium Chloride 250 ml @ 250 mls/hr Q12H IV 12/07/16 12:00 12/15/16 23:04 Urinary Catheter: No A/P Problem List: (1) Amphetamine use disorder, severe, dependence ICD Code: F15.20 - Other stimulant dependence, uncomplicated Status: Acute (2) Abscess in epidural space of lumbar spine ICD Code: G06.1 - Intraspinal abscess and granuloma Status: Acute (3) Osteomyelitis of cervical spine ICD Code: M46.22 - Osteomyelitis of vertebra, cervical region Status: Acute (4) Neck abscess ICD Code: L02.11 - Cutaneous abscess of neck Status: Acute (5) Infectious endocarditis ICD Code: I33.0 - Acute and subacute infective endocarditis Status: Acute (6) Bacteremia ICD Code: R78.81 - Bacteremia Status: Acute (7) Fever ICD Code: R50.9 - Fever, unspecified Status: Resolved (8) IV drug abuse ICD Code: F19.10 - Other psychoactive substance abuse, uncomplicated Status: Chronic (9) Tachycardia ICD Code: R00.0 - Tachycardia, unspecified Status: Acute Assessment and Plan 46-year-old female with a past medical history of IVDA, cervical osteomyelitis, endocarditis, lumbar abscesses who presented with agitation and altered mental status. Tachycardia: EKG ordered. Telemetry ordered, monitor. I/O's ordered. BMP ordered. TSH noted to be WNL. Acute encephalopathy: resolved. 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 Patient not candidate for PETER / cervical disease - ID following patient. Spoke to Dr. Carlos about plan for patient. Patient will require prolonged IV antibiotics. So far no nursing facility or Home health agency willing to take this patient due to her history. Case management following and updated on being a candidate for [facility]. Will explore option of transferring patient to [facility] to finish her IV antibiotics, stop date will be December to complete 4 weeks of antibiotic treatment. CM to continue to follow. Cervical spine osteomyelitis: Diagnosed July 2016. -Continue cervical collar. - Appreciate neurosurgery recommendations. - Patient is not a good surgical candidate at this time due to ongoing IV drug abuse and high infection risk. - MRI cervical spine 11/29 - Substantial improvement when compared to 08/06/16 substantial decrease in the amount of enhancement. - Ceretec tagged white cell study shows no abnormal white cell accumulation in the cervical spine. RUE weakness/weak right special procedures tech strength - no complaints of cervical radiculopathy. Pain well controlled. Denies any numbness or tingling in upper extremities. - PT/OT eval/tx Chronic pain: She is an IV drug user. - Continue Percocet 5/325mg q4hrs, Percocet 7.5mg/325mg q4hrs. no plans to escalate pain medications. Patient is aware of this. Hypertension: - Will controlled at this time. Will continue to monitor BPs. -Continue to Hold lisinopril BMP and CBC pending this am. Follow. DVT prophylaxis: Lovenox. Full code Case discussed with Pt, RN, and Dr. Myers. Discharge Planning Difficult discharge. CM assisting. Chema Price Jr. Dec 16, 2016 11:37
[2016-12-16] MEDS ORDERED: PHARMACY ORDERED LAB ONE (11:45)
[2016-12-16] MEDS: VANCOMYCIN 1,000 MG/NS 250 ML IV SCH ×2 (12:49)
[2016-12-16 13:40] LABS: BICARBONATE 24.4 MEQ/L (21.0-32.0)
--- NOTE | 2016-12-16 14:14 | EKG ---
Date Performed: 12/16/2016 Time Performed: 11:28:21 PTAGE: 46 years EKG: Sinus rhythm NORMAL ECG Compared to prior tracing no significant change PREVIOUS TRACING : 11/26/2016 14.02 DOCTOR: Deangelo Carlos Interpretating Date/Time 12/16/2016 14:10:43
[2016-12-16] MEDS: ENOXAPARIN SODIUM 40 MG/0.4 ML SYRINGE SQ SCH (20:26)
[2016-12-16] MEDS: LORazepam 0.5 MG TAB PO PRN (22:03)
[2016-12-16] MEDS: oxyCODONE/ACETAMINOPHEN 5 MG/325 MG TAB PO PRN (22:49)
[2016-12-16] MEDS: VANCOMYCIN INJ 1,250 MG in SODIUM CHLOR 0.9% 250 ML INJ 250 ML IV SCH (22:50)
[2016-12-17] VITALS (7 sets, daily range): BP systolic 109–126; BP diastolic 60–84; PULSE 64–117; RESP 18–20; TEMP 98–98.6; O2SAT 98–99
[2016-12-17] MEDS: oxyCODONE/ACETAMINOPHEN 5 MG/325 MG TAB PO PRN ×3 (05:46→14:10)
[2016-12-17] MEDS: REMOVE OLD PATCH T-DERMAL SCH (09:00)
[2016-12-17] MEDS: NICOTINE 14 MG/24 HR PATCH T-DERMAL SCH (09:00)
[2016-12-17] MEDS: SODIUM CHLORIDE 0.9% FLUSH 10 ML FLUSH IV FLUSH SCH ×2 (09:00→21:00)
[2016-12-17] MEDS: VENLAFAXINE HCL XR 37.5 MG CAP PO SCH (09:29)
[2016-12-17] MEDS: CETIRIZINE HCL 10 MG TAB PO SCH (09:29)
[2016-12-17] MEDS: RIFAMPIN 150 MG CAP PO SCH ×2 (09:29→21:48)
[2016-12-17] MEDS: DOCUSATE SODIUM 100 MG CAP PO SCH ×2 (09:29→21:47)
[2016-12-17] MEDS: VANCOMYCIN INJ 1,250 MG in SODIUM CHLOR 0.9% 250 ML INJ 250 ML IV SCH ×2 (12:47→23:30)
--- NOTE | 2016-12-17 16:10 | HHI.PR ---
Subjective Remarks Follow up tricuspid valve endocarditis, cervical spine osteomyelitis, and hypertension. Patient seen and examined. No more episodes of emesis reported. Pt noted she felt "ok." Patient again stated she was wanted to go home as soon as possible. She otherwise denied any new acute complaints overnight. Pt denied, chill, cough, shortness of breath, abdominal/chest pain, diarrhea, dysuria. Objective Vitals Vital Signs Date Time Temp Pulse Resp B/P (MAP) Pulse Ox O2 Delivery O2 Flow Rate FiO2 12/17/16 12:16 98.1 77 20 126/73 (90) 98 12/17/16 08:01 98.2 70 20 122/77 (92) 98 12/17/16 08:00 66 12/17/16 05:45 98.0 64 20 110/84 (93) 98 12/16/16 23:53 98.1 101 17 94/55 (68) 98 12/16/16 22:21 108 12/16/16 20:30 98.8 112 17 114/62 (79) 97 I/O 12/16/16 12/16/16 12/16/16 12/17/16 12/17/16 12/17/16 06:59 14:59 22:59 06:59 14:59 22:59 Intake Total 238 ml 1260.5 ml Output Total 600 ml Balance -362 ml 1260.5 ml Intake Oral 238 ml 998 ml IV Total 262.5 ml Output Urine Total 600 ml # Voids 5 3 # Bowel Movements 1 0 Result Diagram: 12/14/16 1322 12/17/16 0850 Imaging Last Impressions Tumor Localization 12/02/16 0000 Signed Impressions: Service Date/Time: Friday, December 02, 2016 16:43 - CONCLUSION: No abnormal white cell accumulation in the cervical spine. Luigi Thomas MD Cervical Spine MRI 11/29/16 0000 Signed Impressions: Service Date/Time: Tuesday, November 29, 2016 16:40 - CONCLUSION: Substantial improvement when compared to 08/06/16 substantial decrease in the amount of enhancement. Ceretec tagged white cell study may be of benefit to exclude residual inflammatory focus. Austin Dang MD FACR Cervical Spine CT 11/28/16 0000 Signed Impressions: Service Date/Time: Tuesday, November 29, 2016 11:22 - CONCLUSION: Stable changes when compared to 09/03/16. Spinal canal still remains adequate. Its difficult to assess the intra-and extradural components. A SPECT tagged white cell study with 3-D reconstructions could offer more information if continued infection is suspected. Austin Dang MD FACR Cervical Spine X-Ray 11/27/16 0000 Signed Impressions: Service Date/Time: October 14:02 - CONCLUSION: 1. Severe kyphosis centered at the C3 level approaching 90 which is mildly increased from the prior study. There is increased deformity of the inferior aspect of C2 with hypertrophic change and or soft tissue calcification. 2. Stable appearing deformity of the C3 vertebral body. 3. 4. Status post remote fusion of the C4- 5 and C6-7 levels. Reginald Michelle MD Chest X-Ray 11/26/16 1400 Signed Impressions: Service Date/Time: Saturday, November 26, 2016 14:22 - CONCLUSION: Prominent cardiac silhouette without suspicious lung lesions. Austin Dang MD FACR Objective Remarks GENERAL: Pt encountered laying a bed, NAD. SKIN: Warm and dry. HEAD: Normocephalic. EYES: No scleral icterus. No injection or drainage. NECK: Supple, trachea midline. No lymphadenopathy. CARDIOVASCULAR: Regular rate and rhythm without murmurs, gallops, or rubs. RESPIRATORY: Breath sounds equal bilaterally. No accessory muscle use. GASTROINTESTINAL: Abdomen soft, non-tender, nondistended. MUSCULOSKELETAL: No cyanosis, or edema. PSYCHIATRIC: Mood and affect appropriate. Insight and judgment adequate. Pt was pleasant and cooperative. Speech was clear and fluent. Procedures None Medications and IVs Current Medications Medications (Trade) Dose Ordered Sig/Declan Route Start Time Stop Time Status Last Admin (NS Flush) 2 ml UNSCH PRN IV FLUSH 11/26/16 17:30 12/08/16 21:31 (NS Flush) 2 ml BID IV FLUSH 11/26/16 21:00 12/17/16 09:00 (Tylenol) 650 mg Q4H PRN PO 11/26/16 17:30 (Lovenox Inj) 40 mg Q24H SQ 11/26/16 20:00 12/16/16 20:26 (Narcan Inj) 0.4 mg UNSCH PRN IV 11/26/16 17:30 (Milk Of Magnesia Liq) 30 ml Q12H PRN PO 11/26/16 17:30 (Senokot) 17.2 mg Q12H PRN PO 11/26/16 17:30 (Dulcolax Supp) 10 mg DAILY PRN RECTAL 11/26/16 17:30 (Lactulose Liq) 30 ml DAILY PRN PO 11/26/16 17:30 Pharmacy Profile Note 0 ml @ 0 mls/hr UNSCH OTHER 11/26/16 17:45 (ZyrTEC) 10 mg DAILY PO 11/27/16 09:00 12/17/16 09:29 (Colace) 100 mg Q12H PO 11/26/16 21:00 12/17/16 09:29 (Habitrol 14 Mg Patch.24 Hr) 1 patch DAILY T-DERMAL 11/27/16 09:00 11/28/16 10:22 (Percocet 5-325 Mg) 1 tab Q4H PRN PO 11/26/16 18:15 12/17/16 14:10 (Rifampin) 300 mg Q12HR PO 11/26/16 21:00 12/17/16 09:29 (Effexor Xr) 37.5 mg DAILY PO 11/27/16 09:00 12/17/16 09:29 Miscellaneous Information 1 DAILY T-DERMAL 11/27/16 09:00 11/28/16 09:00 (Percocet 7.5-325 Mg) 1 tab Q4H PRN PO 11/27/16 12:00 12/16/16 18:41 (Ativan) 0.5 mg Q6H PRN PO 11/28/16 14:00 12/16/16 22:03 (Prinivil) 10 mg DAILY PO 12/01/16 13:30 Future Hold 12/04/16 08:40 Vancomycin HCl 1250 mg/Sodium Chloride 262.5 ml @ 250 mls/hr Q12H IV 12/17/16 00:00 12/17/16 12:47 Miscellaneous Information SPECIFIC LAB TO BE DRAWN:VANCOMYCIN TROUGH DATE TO... ONCE ONCE .XX 12/19/16 11:45 12/19/16 11:46 Urinary Catheter: No A/P Problem List: (1) Amphetamine use disorder, severe, dependence ICD Code: F15.20 - Other stimulant dependence, uncomplicated Status: Acute (2) Abscess in epidural space of lumbar spine ICD Code: G06.1 - Intraspinal abscess and granuloma Status: Acute (3) Osteomyelitis of cervical spine ICD Code: M46.22 - Osteomyelitis of vertebra, cervical region Status: Acute (4) Neck abscess ICD Code: L02.11 - Cutaneous abscess of neck Status: Acute (5) Infectious endocarditis ICD Code: I33.0 - Acute and subacute infective endocarditis Status: Acute (6) Bacteremia ICD Code: R78.81 - Bacteremia Status: Acute (7) Fever ICD Code: R50.9 - Fever, unspecified Status: Resolved (8) IV drug abuse ICD Code: F19.10 - Other psychoactive substance abuse, uncomplicated Status: Chronic (9) Tachycardia ICD Code: R00.0 - Tachycardia, unspecified Status: Acute Assessment and Plan 46-year-old female with a past medical history of IVDA, cervical osteomyelitis, endocarditis, lumbar abscesses who presented with agitation and altered mental status. Tachycardia: EKG reported indicated sinus rhythm. Telemetry ordered. I/O's indicated positive balance. BMP ordered. Rate noted to be normal this morning. Acute encephalopathy: resolved. 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 Patient not candidate for PETER 2/2 cervical disease - ID following patient. Spoke to Dr. Carlos about plan for patient. Patient will require prolonged IV antibiotics. So far no nursing facility or Home health agency willing to take this patient due to her history. Case management following and updated on being a candidate for PO. Will explore option of transferring patient to PO to finish her IV antibiotics, stop date will be December to complete 4 weeks of antibiotic treatment. CM to continue to follow. Cervical spine osteomyelitis: Diagnosed July 2016. -Continue cervical collar. - Appreciate neurosurgery recommendations. - Patient is not a good surgical candidate at this time due to ongoing IV drug abuse and high infection risk. - MRI cervical spine 11/29 - Substantial improvement when compared to 08/06/16 substantial decrease in the amount of enhancement. - Ceretec tagged white cell study shows no abnormal white cell accumulation in the cervical spine. RUE weakness/weak right family and consumer sciences professor strength - no complaints of cervical radiculopathy. Pain well controlled. Denies any numbness or tingling in upper extremities. - PT/OT eval/tx Chronic pain: She is an IV drug user. - Continue Percocet 5/325mg q4hrs, Percocet 7.5mg/325mg q4hrs. no plans to escalate pain medications. Patient is aware of this. Hypertension: - Will controlled at this time. Will continue to monitor BPs. -Continue to Hold lisinopril BMP and CBC pending this am. Follow. DVT prophylaxis: Lovenox. Full code Case discussed with Pt, RN, and Dr. Ni. Discharge Planning Difficult discharge. CM assisting. Chema Price Jr. Dec 17, 2016 16:10
[2016-12-17] MEDS: oxyCODONE/ACETAMINOPHEN 7.5 MG/325 MG TAB PO PRN ×2 (18:11→21:48)
[2016-12-17] MEDS: ENOXAPARIN SODIUM 40 MG/0.4 ML SYRINGE SQ SCH (21:47)
[2016-12-18] VITALS (9 sets, daily range): BP systolic 104–144; BP diastolic 57–82; PULSE 66–106; RESP 16–20; TEMP 97.2–98.6; O2SAT 94–99
[2016-12-18] MEDS: SODIUM CHLORIDE 0.9% FLUSH 10 ML FLUSH IV FLUSH SCH ×2 (00:24→20:25)
[2016-12-18] MEDS: oxyCODONE/ACETAMINOPHEN 7.5 MG/325 MG TAB PO PRN ×3 (06:38→15:16)
[2016-12-18] MEDS: VENLAFAXINE HCL XR 37.5 MG CAP PO SCH (08:28)
[2016-12-18] MEDS: CETIRIZINE HCL 10 MG TAB PO SCH (08:28)
[2016-12-18] MEDS: RIFAMPIN 150 MG CAP PO SCH ×2 (08:29→20:23)
[2016-12-18] MEDS: DOCUSATE SODIUM 100 MG CAP PO SCH ×2 (08:29→20:24)
[2016-12-18] MEDS: NICOTINE 14 MG/24 HR PATCH T-DERMAL SCH (08:33)
[2016-12-18] MEDS: REMOVE OLD PATCH T-DERMAL SCH (09:00)
[2016-12-18 11:47] LABS: BICARBONATE 27.1 MEQ/L (21.0-32.0)
[2016-12-18] MEDS: VANCOMYCIN INJ 1,250 MG in SODIUM CHLOR 0.9% 250 ML INJ 250 ML IV SCH (12:11)
--- NOTE | 2016-12-18 17:08 | HHI.PR ---
Subjective Remarks Follow up tricuspid valve endocarditis, cervical spine osteomyelitis, and hypertension. Patient seen and examined. Pt noted she felt "ok." Pt requested change in diet from healthy heart to regular. She denied any new acute complaints overnight. Pt denied, chill, cough, shortness of breath, abdominal/chest pain, diarrhea, dysuria. Per RN's (Dejah and Margarette) no acute issues ntoed overnight or since start of shift. Objective Vitals Vital Signs Date Time Temp Pulse Resp B/P (MAP) Pulse Ox O2 Delivery O2 Flow Rate FiO2 12/18/16 16:00 97.6 90 18 104/57 (73) 99 12/18/16 15:00 82 12/18/16 12:00 98.1 72 18 114/66 (82) 99 12/18/16 11:57 66 12/18/16 07:00 98.6 76 20 144/82 (102) 97 12/18/16 04:24 98.2 77 16 129/67 (87) 94 12/18/16 01:06 97.9 79 16 122/63 (82) 96 12/17/16 20:45 98.0 97 18 120/77 (91) 98 12/17/16 19:25 117 I/O 12/17/16 12/17/16 12/17/16 12/18/16 12/18/16 12/18/16 07:00 15:00 23:00 07:00 15:00 23:00 Intake Total 1260.5 ml 1920 ml 240 ml 262.5 ml Balance 1260.5 ml 1920 ml 240 ml 262.5 ml Intake Oral 998 ml 1920 ml 240 ml IV Total 262.5 ml 262.5 ml # Voids 3 0 2 # Bowel Movements 0 0 Result Diagram: 12/14/16 1322 12/18/16 1054 Objective Remarks GENERAL: Pt encountered laying a bed, resting, minimal involvement in visit. NAD. SKIN: Warm and dry. HEAD: Normocephalic. EYES: No scleral icterus. No injection or drainage. NECK: Supple, trachea midline. No lymphadenopathy. CARDIOVASCULAR: Regular rate and rhythm without murmurs, gallops, or rubs. RESPIRATORY: Breath sounds equal bilaterally. No accessory muscle use. GASTROINTESTINAL: Abdomen soft, non-tender, nondistended. MUSCULOSKELETAL: No cyanosis, or edema. Pt wearing cervical collar. PSYCHIATRIC: Mood and affect appropriate. Insight and judgment adequate. Pt was pleasant and cooperative. Speech was clear and fluent. Procedures None Medications and IVs Current Medications Medications (Trade) Dose Ordered Sig/Declan Route Start Time Stop Time Status Last Admin (NS Flush) 2 ml UNSCH PRN IV FLUSH 11/26/16 17:30 12/08/16 21:31 (NS Flush) 2 ml BID IV FLUSH 11/26/16 21:00 12/18/16 00:24 (Tylenol) 650 mg Q4H PRN PO 11/26/16 17:30 (Lovenox Inj) 40 mg Q24H SQ 11/26/16 20:00 12/17/16 21:47 (Narcan Inj) 0.4 mg UNSCH PRN IV 11/26/16 17:30 (Milk Of Magnesia Liq) 30 ml Q12H PRN PO 11/26/16 17:30 (Senokot) 17.2 mg Q12H PRN PO 11/26/16 17:30 (Dulcolax Supp) 10 mg DAILY PRN RECTAL 11/26/16 17:30 (Lactulose Liq) 30 ml DAILY PRN PO 11/26/16 17:30 Pharmacy Profile Note 0 ml @ 0 mls/hr UNSCH OTHER 11/26/16 17:45 (ZyrTEC) 10 mg DAILY PO 11/27/16 09:00 12/18/16 08:28 (Colace) 100 mg Q12H PO 11/26/16 21:00 12/18/16 08:29 (Percocet 5-325 Mg) 1 tab Q4H PRN PO 11/26/16 18:15 12/17/16 14:10 (Rifampin) 300 mg Q12HR PO 11/26/16 21:00 12/18/16 08:29 (Effexor Xr) 37.5 mg DAILY PO 11/27/16 09:00 12/18/16 08:28 (Percocet 7.5-325 Mg) 1 tab Q4H PRN PO 11/27/16 12:00 12/18/16 15:16 (Ativan) 0.5 mg Q6H PRN PO 11/28/16 14:00 12/16/16 22:03 (Prinivil) 10 mg DAILY PO 12/01/16 13:30 Future Hold 12/04/16 08:40 Vancomycin HCl 1250 mg/Sodium Chloride 262.5 ml @ 250 mls/hr Q12H IV 12/17/16 00:00 12/18/16 12:11 Urinary Catheter: No A/P Problem List: (1) Amphetamine use disorder, severe, dependence ICD Code: F15.20 - Other stimulant dependence, uncomplicated Status: Acute (2) Abscess in epidural space of lumbar spine ICD Code: G06.1 - Intraspinal abscess and granuloma Status: Acute (3) Osteomyelitis of cervical spine ICD Code: M46.22 - Osteomyelitis of vertebra, cervical region Status: Acute (4) Neck abscess ICD Code: L02.11 - Cutaneous abscess of neck Status: Acute (5) Infectious endocarditis ICD Code: I33.0 - Acute and subacute infective endocarditis Status: Acute (6) Bacteremia ICD Code: R78.81 - Bacteremia Status: Acute (7) Fever ICD Code: R50.9 - Fever, unspecified Status: Resolved (8) IV drug abuse ICD Code: F19.10 - Other psychoactive substance abuse, uncomplicated Status: Chronic (9) Tachycardia ICD Code: R00.0 - Tachycardia, unspecified Status: Acute Assessment and Plan 46-year-old female with a past medical history of IVDA, cervical osteomyelitis, endocarditis, lumbar abscesses who presented with agitation and altered mental status. Tachycardia: Telemetry continues. I/O's continue to indicate positive balance. Rate noted to be normal this morning. BMP completed; all values WNL. Endocarditis: Pt continues to tolerate IV antibiotics. Nicotine Addiction: Nicotine patch discontinued. Acute encephalopathy: Discontinued neuro-checks. Diet: Discontinued healthy heart and initiated Regular, adult diet. Acute encephalopathy: resolved. 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 Patient not candidate for PETER 2/2 cervical disease - ID following patient. Spoke to Dr. Carlos about plan for patient. Patient will require prolonged IV antibiotics. So far no nursing facility or Home health agency willing to take this patient due to her history. Case management following and updated on being a candidate for PO. Will explore option of transferring patient to PO to finish her IV antibiotics, stop date will be December to complete 4 weeks of antibiotic treatment. CM to continue to follow. Cervical spine osteomyelitis: Diagnosed July 2016. -Continue cervical collar. - Appreciate neurosurgery recommendations. - Patient is not a good surgical candidate at this time due to ongoing IV drug abuse and high infection risk. - MRI cervical spine 11/29 - Substantial improvement when compared to 08/06/16 substantial decrease in the amount of enhancement. - Ceretec tagged white cell study shows no abnormal white cell accumulation in the cervical spine. RUE weakness/weak right steeple jack strength - no complaints of cervical radiculopathy. Pain well controlled. Denies any numbness or tingling in upper extremities. - PT/OT eval/tx Chronic pain: She is an IV drug user. - Continue Percocet 5/325mg q4hrs, Percocet 7.5mg/325mg q4hrs. no plans to escalate pain medications. Patient is aware of this. Hypertension: - Will controlled at this time. Will continue to monitor BPs. -Continue to Hold lisinopril BMP and CBC pending this am. Follow. DVT prophylaxis: Lovenox. Full code Case discussed with Pt, RN, and Dr. Ni. Discharge Planning Difficult discharge. CM assisting. Chema Price Jr. Dec 18, 2016 17:08
[2016-12-18] MEDS: oxyCODONE/ACETAMINOPHEN 5 MG/325 MG TAB PO PRN (20:23)
[2016-12-18] MEDS: ENOXAPARIN SODIUM 40 MG/0.4 ML SYRINGE SQ SCH (20:24)
[2016-12-19] VITALS (7 sets, daily range): BP systolic 113–124; BP diastolic 59–70; PULSE 60–107; RESP 18; TEMP 97.8–98.9; O2SAT 95–100
[2016-12-19] MEDS: VANCOMYCIN INJ 1,250 MG in SODIUM CHLOR 0.9% 250 ML INJ 250 ML IV SCH ×3 (00:19→23:59)
[2016-12-19] MEDS: oxyCODONE/ACETAMINOPHEN 5 MG/325 MG TAB PO PRN ×2 (00:32→05:34)
[2016-12-19] MEDS: DOCUSATE SODIUM 100 MG CAP PO SCH ×2 (10:13→20:09)
[2016-12-19] MEDS: VENLAFAXINE HCL XR 37.5 MG CAP PO SCH (10:13)
[2016-12-19] MEDS: oxyCODONE/ACETAMINOPHEN 7.5 MG/325 MG TAB PO PRN ×4 (10:14→23:59)
[2016-12-19] MEDS: CETIRIZINE HCL 10 MG TAB PO SCH (10:14)
[2016-12-19] MEDS: RIFAMPIN 150 MG CAP PO SCH (10:14)
[2016-12-19] MEDS: SODIUM CHLORIDE 0.9% FLUSH 10 ML FLUSH IV FLUSH SCH ×2 (10:17→20:09)
--- NOTE | 2016-12-19 11:00 | HHI.PR ---
Addendum to Inpatient Note Addendum Reason: Corrected Documentation Additional Information 2 D echo from 11/30 confirmed tricuspid valve vegetation Will Rx 4-6 weeks tenative stop date around Jan [address] Wang who was following pt as o/p. Pt was non compliant and using drugs while on IV vancomycin and she clinically failed oral abx Pt can be placed in a shelter to complete treatment - cont IV vancomycin with target of 15-20 dc Rifampin since Ceretec is negative Dina Carlos MD Dec 19, 2016 11:00
[2016-12-19] MEDS ORDERED: PHARMACY ORDERED LAB ONE (11:45)
--- NOTE | 2016-12-19 13:04 | HHI.PR ---
Subjective Remarks Follow up tricuspid valve endocarditis, cervical spine osteomyelitis, and hypertension. Patient seen and examined. Pt noted she felt "ok." Pt noted change in diet and was appreciative of being able to eat "real food." She denied any new acute complaints overnight. Pt denied, chill, cough, shortness of breath, abdominal/chest pain, diarrhea, dysuria. Per RN (Margarette) no acute issues noted overnight or since start of shift. Charge nurse (Juana Lazo) present for discussion with pt regarding IV access, multiple failures of IV's and concern over tampering with access. Pt denied using IV drugs while in the hospital and stated she had not been using IV drugs "for a while now." Pt stated she is attending AA to address her issues and has a sponsor, with whom she reportedly spoke to early in the week. Pt said she was willing to be "tested anytime you want to check me." She stated her drug of choice when she was using IV drugs was "meth". Discussed with pt her diagnosis of endocarditis; education provided to her about the condition and issues related to it. Discussed with Dr. Carlos (infectious disease) pt's condition, treatment plan/ medications Objective Vitals Vital Signs Date Time Temp Pulse Resp B/P (MAP) Pulse Ox O2 Delivery O2 Flow Rate FiO2 12/19/16 08:00 98.1 70 18 115/66 (82) 97 12/19/16 04:00 98.9 60 18 113/59 (77) 95 12/18/16 21:25 97.2 97 18 110/63 (79) 98 12/18/16 19:00 106 12/18/16 16:00 97.6 90 18 104/57 (73) 99 12/18/16 15:00 82 I/O 12/18/16 12/18/16 12/18/16 12/19/16 12/19/16 12/19/16 07:00 15:00 23:00 07:00 15:00 23:00 Intake Total 240 ml 262.5 ml Balance 240 ml 262.5 ml Intake Oral 240 ml IV Total 262.5 ml # Voids 2 4 Result Diagram: 12/19/16 0522 Imaging Last Impressions Tumor Localization 12/02/16 0000 Signed Impressions: Service Date/Time: Friday, December 02, 2016 16:43 - CONCLUSION: No abnormal white cell accumulation in the cervical spine. Luigi Thomas MD Cervical Spine MRI 11/29/16 0000 Signed Impressions: Service Date/Time: Tuesday, November 29, 2016 16:40 - CONCLUSION: Substantial improvement when compared to 08/06/16 substantial decrease in the amount of enhancement. Ceretec tagged white cell study may be of benefit to exclude residual inflammatory focus. Austin Dang MD FACR Cervical Spine CT 11/28/16 0000 Signed Impressions: Service Date/Time: Tuesday, November 29, 2016 11:22 - CONCLUSION: Stable changes when compared to 09/03/16. Spinal canal still remains adequate. Its difficult to assess the intra-and extradural components. A SPECT tagged white cell study with 3-D reconstructions could offer more information if continued infection is suspected. Austin Dang MD FACR Cervical Spine X-Ray 11/27/16 0000 Signed Impressions: Service Date/Time: October 14:02 - CONCLUSION: 1. Severe kyphosis centered at the C3 level approaching 90 which is mildly increased from the prior study. There is increased deformity of the inferior aspect of C2 with hypertrophic change and or soft tissue calcification. 2. Stable appearing deformity of the C3 vertebral body. 3. 4. Status post remote fusion of the C4- 5 and C6-7 levels. Reginald Michelle MD Chest X-Ray 11/26/16 1400 Signed Impressions: Service Date/Time: Saturday, November 26, 2016 14:22 - CONCLUSION: Prominent cardiac silhouette without suspicious lung lesions. Austin Dang MD FACR Objective Remarks GENERAL: Pt encountered laying a bed, resting. NAD. SKIN: Warm and dry. HEAD: Normocephalic. EYES: No scleral icterus. No injection or drainage. NECK: Supple, trachea midline. No lymphadenopathy. CARDIOVASCULAR: Regular rate and rhythm without murmurs, gallops, or rubs. RESPIRATORY: Breath sounds equal bilaterally. No accessory muscle use. GASTROINTESTINAL: Abdomen soft, non-tender, nondistended. MUSCULOSKELETAL: No cyanosis, or edema. Pt wearing cervical collar. PSYCHIATRIC: Mood and affect appropriate. Insight and judgment adequate. Pt was pleasant and cooperative. Speech was clear and fluent. Procedures None Medications and IVs Current Medications Medications (Trade) Dose Ordered Sig/Declan Route Start Time Stop Time Status Last Admin (NS Flush) 2 ml UNSCH PRN IV FLUSH 11/26/16 17:30 12/08/16 21:31 (NS Flush) 2 ml BID IV FLUSH 11/26/16 21:00 12/19/16 10:17 (Tylenol) 650 mg Q4H PRN PO 11/26/16 17:30 (Lovenox Inj) 40 mg Q24H SQ 11/26/16 20:00 12/18/16 20:24 (Narcan Inj) 0.4 mg UNSCH PRN IV 11/26/16 17:30 (Milk Of Magnesia Liq) 30 ml Q12H PRN PO 11/26/16 17:30 (Senokot) 17.2 mg Q12H PRN PO 11/26/16 17:30 (Dulcolax Supp) 10 mg DAILY PRN RECTAL 11/26/16 17:30 (Lactulose Liq) 30 ml DAILY PRN PO 11/26/16 17:30 Pharmacy Profile Note 0 ml @ 0 mls/hr UNSCH OTHER 11/26/16 17:45 (ZyrTEC) 10 mg DAILY PO 11/27/16 09:00 12/19/16 10:14 (Colace) 100 mg Q12H PO 11/26/16 21:00 12/19/16 10:13 (Percocet 5-325 Mg) 1 tab Q4H PRN PO 11/26/16 18:15 12/19/16 05:34 (Effexor Xr) 37.5 mg DAILY PO 11/27/16 09:00 12/19/16 10:13 (Percocet 7.5-325 Mg) 1 tab Q4H PRN PO 11/27/16 12:00 12/19/16 10:14 (Ativan) 0.5 mg Q6H PRN PO 11/28/16 14:00 12/16/16 22:03 (Prinivil) 10 mg DAILY PO 12/01/16 13:30 Future Hold 12/04/16 08:40 Vancomycin HCl 1250 mg/Sodium Chloride 262.5 ml @ 250 mls/hr Q12H IV 12/17/16 00:00 12/19/16 00:19 Miscellaneous Information SPECIFIC LAB TO BE DELIA... ONCE ONCE .XX 12/20/16 11:45 12/20/16 11:46 Urinary Catheter: No A/P Problem List: (1) Amphetamine use disorder, severe, dependence ICD Code: F15.20 - Other stimulant dependence, uncomplicated Status: Acute (2) Abscess in epidural space of lumbar spine ICD Code: G06.1 - Intraspinal abscess and granuloma Status: Acute (3) Osteomyelitis of cervical spine ICD Code: M46.22 - Osteomyelitis of vertebra, cervical region Status: Acute (4) Neck abscess ICD Code: L02.11 - Cutaneous abscess of neck Status: Acute (5) Infectious endocarditis ICD Code: I33.0 - Acute and subacute infective endocarditis Status: Acute (6) Bacteremia ICD Code: R78.81 - Bacteremia Status: Acute (7) Fever ICD Code: R50.9 - Fever, unspecified Status: Resolved (8) IV drug abuse ICD Code: F19.10 - Other psychoactive substance abuse, uncomplicated Status: Chronic (9) Tachycardia ICD Code: R00.0 - Tachycardia, unspecified Status: Acute Assessment and Plan 46-year-old female with a past medical history of IVDA, cervical osteomyelitis, endocarditis, lumbar abscesses who presented with agitation and altered mental status. Tachycardia: Fewer episodes noted over past 24 hours. Endocarditis: Pt continues to tolerate IV antibiotics. Pt educated about condition. Picc line ordered. Infectious disease has discontinued pt's Rifampin; tentative discontinuation of antibiotics remains December 31. IV drug use: Random drug screen ordered.. Acute encephalopathy: resolved. 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 Patient not candidate for PETER 2/2 cervical disease - ID following patient. Spoke to Dr. Carlos about plan for patient. Patient will require prolonged IV antibiotics. So far no nursing facility or Home health agency willing to take this patient due to her history. Case management following and updated on being a candidate for PO. Will explore option of transferring patient to PO to finish her IV antibiotics, stop date will be December to complete 4 weeks of antibiotic treatment. CM to continue to follow. Cervical spine osteomyelitis: Diagnosed July 2016. -Continue cervical collar. - Appreciate neurosurgery recommendations. - Patient is not a good surgical candidate at this time due to ongoing IV drug abuse and high infection risk. - MRI cervical spine 11/29 - Substantial improvement when compared to 08/06/16 substantial decrease in the amount of enhancement. - Ceretec tagged white cell study shows no abnormal white cell accumulation in the cervical spine. RUE weakness/weak right silver service waiter strength - no complaints of cervical radiculopathy. Pain well controlled. Denies any numbness or tingling in upper extremities. - PT/OT eval/tx Chronic pain: She is an IV drug user. - Continue Percocet 5/325mg q4hrs, Percocet 7.5mg/325mg q4hrs. no plans to escalate pain medications. Patient is aware of this. Hypertension: - Will controlled at this time. Will continue to monitor BPs. -Continue to Hold lisinopril BMP and CBC pending this am. Follow. DVT prophylaxis: Lovenox. Full code Case discussed with Pt, RN, and Drs. Carreon and Breanna. Discharge Planning Difficult discharge. CM assisting. Chema Price Jr. Dec 19, 2016 13:03
[2016-12-19] MEDS: ENOXAPARIN SODIUM 40 MG/0.4 ML SYRINGE SQ SCH (20:08)
[2016-12-20] VITALS (7 sets, daily range): BP systolic 96–124; BP diastolic 54–64; PULSE 73–93; RESP 16–20; TEMP 97.9–98.6; O2SAT 95–99
[2016-12-20] MEDS: SODIUM CHLORIDE 0.9% FLUSH 10 ML FLUSH IV FLUSH SCH ×2 (09:00→20:42)
[2016-12-20] MEDS: VENLAFAXINE HCL XR 37.5 MG CAP PO SCH (09:49)
[2016-12-20] MEDS: DOCUSATE SODIUM 100 MG CAP PO SCH ×2 (09:49→20:42)
[2016-12-20] MEDS: CETIRIZINE HCL 10 MG TAB PO SCH (09:49)
[2016-12-20] MEDS: oxyCODONE/ACETAMINOPHEN 7.5 MG/325 MG TAB PO PRN ×4 (09:49→22:55)
[2016-12-20] MEDS ORDERED: PHARMACY ORDERED LAB ONE (11:45)
[2016-12-20] MEDS: VANCOMYCIN INJ 1,250 MG in SODIUM CHLOR 0.9% 250 ML INJ 250 ML IV SCH (12:28)
--- NOTE | 2016-12-20 14:48 | HHI.PR ---
Subjective Remarks Follow up tricuspid valve endocarditis, cervical spine osteomyelitis, and hypertension. Patient seen and examined. Pt noted she felt "ok." Pt was again appreciative of recent change in diet and "being able to eat real food again". Asked patient if she had any thoughts or concerns about yesterday's meeting with this clinician and charge nurse. Patient said she had none. She stated she did speak with her AA sponsor yesterday. Discussed with pt her recent echocardiogram results and implications of ejection of 35-40% as well as pulmonary hypertension of 40-55 mmHg. she was informed these issues will need to be followed up outpatient with PCP and or cardiology. She denied any new acute complaints overnight. Pt denied, chill, cough, shortness of breath, abdominal/chest pain, diarrhea, dysuria. Per RN (Murtaza) no acute issues noted overnight or since start of shift. Objective Vitals Vital Signs Date Time Temp Pulse Resp B/P (MAP) Pulse Ox O2 Delivery O2 Flow Rate FiO2 12/20/16 12:00 98.3 77 17 118/55 (76) 99 12/20/16 08:00 98.2 73 17 124/59 (80) 96 12/20/16 05:09 98.3 80 20 96/54 (68) 95 12/20/16 00:54 97.9 93 20 105/57 (73) 98 12/19/16 20:00 97.8 91 18 124/66 (85) 95 12/19/16 19:44 107 12/19/16 17:06 69 12/19/16 16:00 98.5 87 18 123/70 (87) 100 I/O 12/19/16 12/19/16 12/19/16 12/20/16 12/20/16 12/20/16 07:00 15:00 23:00 07:00 15:00 23:00 Intake Total 262.5 ml 240 ml Balance 262.5 ml 240 ml Intake Oral 240 ml IV Total 262.5 ml # Voids 4 2 # Bowel Movements 1 Result Diagram: 12/19/16 05 Imaging Last Impressions Tumor Localization 12/02/16 0000 Signed Impressions: Service Date/Time: Friday, December 02, 2016 16:43 - CONCLUSION: No abnormal white cell accumulation in the cervical spine. Luigi Thomas MD Cervical Spine MRI 11/29/16 0000 Signed Impressions: Service Date/Time: Tuesday, November 29, 2016 16:40 - CONCLUSION: Substantial improvement when compared to 08/06/16 substantial decrease in the amount of enhancement. Ceretec tagged white cell study may be of benefit to exclude residual inflammatory focus. Austin Dang MD FACR Cervical Spine CT 11/28/16 0000 Signed Impressions: Service Date/Time: Tuesday, November 29, 2016 11:22 - CONCLUSION: Stable changes when compared to 09/03/16. Spinal canal still remains adequate. Its difficult to assess the intra-and extradural components. A SPECT tagged white cell study with 3-D reconstructions could offer more information if continued infection is suspected. Austin Dang MD FACR Cervical Spine X-Ray 11/27/16 0000 Signed Impressions: Service Date/Time: October 14:02 - CONCLUSION: 1. Severe kyphosis centered at the C3 level approaching 90 which is mildly increased from the prior study. There is increased deformity of the inferior aspect of C2 with hypertrophic change and or soft tissue calcification. 2. Stable appearing deformity of the C3 vertebral body. 3. 4. Status post remote fusion of the C4- 5 and C6-7 levels. Reginald Michelle MD Chest X-Ray 11/26/16 1400 Signed Impressions: Service Date/Time: Saturday, November 26, 2016 14:22 - CONCLUSION: Prominent cardiac silhouette without suspicious lung lesions. Austin Dang MD FACR Objective Remarks GENERAL: Pt encountered laying a bed, resting. NAD. SKIN: Warm and dry. HEAD: Normocephalic. EYES: No scleral icterus. No injection or drainage. NECK: Supple, trachea midline. CARDIOVASCULAR: Regular rate and rhythm without murmurs, gallops, or rubs. RESPIRATORY: Breath sounds equal bilaterally. No accessory muscle use. GASTROINTESTINAL: Abdomen soft, non-tender, nondistended. MUSCULOSKELETAL: No cyanosis, or edema. Pt wearing cervical collar. PSYCHIATRIC: Mood and affect appropriate. Insight and judgment adequate. Pt was pleasant and cooperative. Speech was clear and fluent. Procedures None Medications and IVs Current Medications Medications (Trade) Dose Ordered Sig/Declan Route Start Time Stop Time Status Last Admin (NS Flush) 2 ml UNSCH PRN IV FLUSH 11/26/16 17:30 12/08/16 21:31 (NS Flush) 2 ml BID IV FLUSH 11/26/16 21:00 12/20/16 09:00 (Tylenol) 650 mg Q4H PRN PO 11/26/16 17:30 (Lovenox Inj) 40 mg Q24H SQ 11/26/16 20:00 12/19/16 20:08 (Narcan Inj) 0.4 mg UNSCH PRN IV 11/26/16 17:30 (Milk Of Magnesia Liq) 30 ml Q12H PRN PO 11/26/16 17:30 (Senokot) 17.2 mg Q12H PRN PO 11/26/16 17:30 (Dulcolax Supp) 10 mg DAILY PRN RECTAL 11/26/16 17:30 (Lactulose Liq) 30 ml DAILY PRN PO 11/26/16 17:30 Pharmacy Profile Note 0 ml @ 0 mls/hr UNSCH OTHER 11/26/16 17:45 (ZyrTEC) 10 mg DAILY PO 11/27/16 09:00 12/20/16 09:49 (Colace) 100 mg Q12H PO 11/26/16 21:00 12/20/16 09:49 (Percocet 5-325 Mg) 1 tab Q4H PRN PO 11/26/16 18:15 12/19/16 05:34 (Effexor Xr) 37.5 mg DAILY PO 11/27/16 09:00 12/20/16 09:49 (Percocet 7.5-325 Mg) 1 tab Q4H PRN PO 11/27/16 12:00 12/20/16 09:49 (Ativan) 0.5 mg Q6H PRN PO 11/28/16 14:00 12/16/16 22:03 (Prinivil) 10 mg DAILY PO 12/01/16 13:30 Future Hold 12/04/16 08:40 Vancomycin HCl 1000 mg/Sodium Chloride 250 ml @ 250 mls/hr Q12H IV 12/21/16 00:00 Miscellaneous Information SPECIFIC LAB TO BE DELIA... ONCE ONCE .XX 12/22/16 11:45 12/22/16 11:46 Urinary Catheter: No A/P Problem List: (1) Amphetamine use disorder, severe, dependence ICD Code: F15.20 - Other stimulant dependence, uncomplicated Status: Acute (2) Abscess in epidural space of lumbar spine ICD Code: G06.1 - Intraspinal abscess and granuloma Status: Acute (3) Osteomyelitis of cervical spine ICD Code: M46.22 - Osteomyelitis of vertebra, cervical region Status: Acute (4) Neck abscess ICD Code: L02.11 - Cutaneous abscess of neck Status: Acute (5) Infectious endocarditis ICD Code: I33.0 - Acute and subacute infective endocarditis Status: Acute (6) Bacteremia ICD Code: R78.81 - Bacteremia Status: Acute (7) Fever ICD Code: R50.9 - Fever, unspecified Status: Resolved (8) IV drug abuse ICD Code: F19.10 - Other psychoactive substance abuse, uncomplicated Status: Chronic (9) Tachycardia ICD Code: R00.0 - Tachycardia, unspecified Status: Acute Assessment and Plan 46-year-old female with a past medical history of IVDA, cervical osteomyelitis, endocarditis, lumbar abscesses who presented with agitation and altered mental status. Tachycardia: One episodes noted over past 24 hours during vital check. Endocarditis: Pt continues to tolerate IV antibiotics. Pt educated about condition. Picc line to be ordered in event current peripheral IV line fails. Acute encephalopathy: resolved. 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 Patient not candidate for PETER 05/01 cervical disease - ID following patient. Spoke to Dr. Carlos about plan for patient. Patient will require prolonged IV antibiotics. So far no nursing facility or Home health agency willing to take this patient due to her history. Case management following and updated on being a candidate for PO. Will explore option of transferring patient to PO to finish her IV antibiotics, stop date will be December to complete 4 weeks of antibiotic treatment. CM to continue to follow. Cervical spine osteomyelitis: Diagnosed July 2016. -Continue cervical collar. - Appreciate neurosurgery recommendations. - Patient is not a good surgical candidate at this time due to ongoing IV drug abuse and high infection risk. - MRI cervical spine 11/29 - Substantial improvement when compared to 08/06/16 substantial decrease in the amount of enhancement. - Ceretec tagged white cell study shows no abnormal white cell accumulation in the cervical spine. 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 Pain well controlled. Denies any numbness or tingling in upper extremities. - PT/OT eval/tx Chronic pain: She is an IV drug user. - Continue Percocet 5/325mg q4hrs, Percocet 7.5mg/325mg q4hrs. no plans to escalate pain medications. Patient is aware of this. Hypertension: - Will controlled at this time. Will continue to monitor BPs. -Continue to Hold lisinopril BMP and CBC pending this am. Follow. DVT prophylaxis: Lovenox. Full code Case discussed with Pt, RN, and Dr. Carreon Discharge Planning Difficult discharge. CM assisting. Chema Price Jr. ARY Dec 20, 2016 14:48
[2016-12-20] MEDS: ENOXAPARIN SODIUM 40 MG/0.4 ML SYRINGE SQ SCH (20:42)
[2016-12-20] MEDS: VANCOMYCIN 1,000 MG/NS 250 ML IV SCH ×2 (22:56)
[2016-12-21] VITALS (7 sets, daily range): BP systolic 99–110; BP diastolic 56–65; PULSE 64–123; RESP 17–19; TEMP 97–98.7; O2SAT 96–99
[2016-12-21] MEDS: SODIUM CHLORIDE 0.9% FLUSH 10 ML FLUSH IV FLUSH SCH ×2 (08:23→22:06)
[2016-12-21] MEDS: DOCUSATE SODIUM 100 MG CAP PO SCH ×2 (08:23→21:54)
[2016-12-21] MEDS: VENLAFAXINE HCL XR 37.5 MG CAP PO SCH (08:23)
[2016-12-21] MEDS: CETIRIZINE HCL 10 MG TAB PO SCH (08:23)
[2016-12-21] MEDS: oxyCODONE/ACETAMINOPHEN 7.5 MG/325 MG TAB PO PRN ×4 (08:24→21:54)
[2016-12-21] MEDS: VANCOMYCIN 1,000 MG/NS 250 ML IV SCH ×4 (11:11→23:47)
--- NOTE | 2016-12-21 14:25 | HHI.PR ---
Subjective Remarks Follow up tricuspid valve endocarditis, cervical spine osteomyelitis, and hypertension. Patient seen and examined. Pt noted she felt "good." Patient stated she was feeling better about her health condition after being educated by clinical staff. Patient stated that she was interested in entering drug rehabilitation after discharge in order to maintain a sober lifestyle. Patient reported that she has learned that she will be a grandmother for the first time with grandchild being born early in 2018. Patient denied chest pain as well as shortness of breath. Patient stated that she is getting up and walking in order to exercise. Patient reported pain at site above her IV insertion. She denied fever or discharge from the site. She denied any new acute complaints overnight. Pt denied, chill, cough, shortness of breath, abdominal/chest pain, diarrhea, dysuria. Per RN (Rain) no acute issues noted overnight or since start of shift. Objective Vitals Vital Signs Date Time Temp Pulse Resp B/P (MAP) Pulse Ox O2 Delivery O2 Flow Rate FiO2 12/21/16 12:00 97.0 72 17 108/58 (75) 96 12/21/16 08:01 64 12/21/16 08:00 98.7 72 19 110/56 (74) 97 12/21/16 05:00 98.3 78 19 101/65 (77) 98 12/21/16 01:34 123 12/21/16 01:15 98.1 88 17 99/62 (74) 99 12/20/16 21:15 98.6 80 16 98/58 (71) 98 12/20/16 16:00 97.9 78 19 121/64 (83) 98 I/O 12/20/16 12/20/16 12/20/16 12/21/16 12/21/16 12/21/16 07:00 15:00 23:00 07:00 15:00 23:00 Intake Total 720 ml 600 ml 1300 ml Output Total 350 ml Balance 720 ml 600 ml 1300 ml -350 ml Intake Oral 720 ml 600 ml 1050 ml IV Total 250 ml Output Urine Total 350 ml # Voids 2 4 2 3 # Bowel Movements 1 0 0 Result Diagram: 12/21/16 0816 Objective Remarks GENERAL: Pt encountered laying a bed, resting. NAD. SKIN: Warm and dry. HEAD: Normocephalic. EYES: No scleral icterus. No injection or drainage. NECK: Supple, trachea midline. CARDIOVASCULAR: Regular rate and rhythm without murmurs, gallops, or rubs. RESPIRATORY: Breath sounds equal bilaterally. No accessory muscle use. GASTROINTESTINAL: Abdomen soft, non-tender, nondistended. MUSCULOSKELETAL: No cyanosis, or edema. Pt wearing cervical collar. PSYCHIATRIC: Mood and affect bright. Insight and judgment adequate. Pt was pleasant and cooperative. Speech was clear and fluent. Procedures None Medications and IVs Current Medications Medications (Trade) Dose Ordered Sig/Declan Route Start Time Stop Time Status Last Admin (NS Flush) 2 ml UNSCH PRN IV FLUSH 11/26/16 17:30 12/08/16 21:31 (NS Flush) 2 ml BID IV FLUSH 11/26/16 21:00 12/21/16 08:23 (Tylenol) 650 mg Q4H PRN PO 11/26/16 17:30 (Lovenox Inj) 40 mg Q24H SQ 11/26/16 20:00 12/20/16 20:42 (Narcan Inj) 0.4 mg UNSCH PRN IV 11/26/16 17:30 (Milk Of Magnesia Liq) 30 ml Q12H PRN PO 11/26/16 17:30 (Senokot) 17.2 mg Q12H PRN PO 11/26/16 17:30 (Dulcolax Supp) 10 mg DAILY PRN RECTAL 11/26/16 17:30 (Lactulose Liq) 30 ml DAILY PRN PO 11/26/16 17:30 Pharmacy Profile Note 0 ml @ 0 mls/hr UNSCH OTHER 11/26/16 17:45 (ZyrTEC) 10 mg DAILY PO 11/27/16 09:00 12/21/16 08:23 (Colace) 100 mg Q12H PO 11/26/16 21:00 12/21/16 08:23 (Percocet 5-325 Mg) 1 tab Q4H PRN PO 11/26/16 18:15 12/19/16 05:34 (Effexor Xr) 37.5 mg DAILY PO 11/27/16 09:00 12/21/16 08:23 (Percocet 7.5-325 Mg) 1 tab Q4H PRN PO 11/27/16 12:00 12/21/16 12:53 (Ativan) 0.5 mg Q6H PRN PO 11/28/16 14:00 12/16/16 22:03 (Prinivil) 10 mg DAILY PO 12/01/16 13:30 Future Hold 12/04/16 08:40 Vancomycin HCl 1000 mg/Sodium Chloride 250 ml @ 250 mls/hr Q12H IV 12/21/16 00:00 12/21/16 11:11 Miscellaneous Information SPECIFIC LAB TO BE DELIA... ONCE ONCE .XX 12/22/16 11:45 12/22/16 11:46 A/P Problem List: (1) Amphetamine use disorder, severe, dependence ICD Code: F15.20 - Other stimulant dependence, uncomplicated Status: Acute (2) Abscess in epidural space of lumbar spine ICD Code: G06.1 - Intraspinal abscess and granuloma Status: Acute (3) Osteomyelitis of cervical spine ICD Code: M46.22 - Osteomyelitis of vertebra, cervical region Status: Acute (4) Neck abscess ICD Code: L02.11 - Cutaneous abscess of neck Status: Acute (5) Infectious endocarditis ICD Code: I33.0 - Acute and subacute infective endocarditis Status: Acute (6) Bacteremia ICD Code: R78.81 - Bacteremia Status: Acute (7) Fever ICD Code: R50.9 - Fever, unspecified Status: Resolved (8) IV drug abuse ICD Code: F19.10 - Other psychoactive substance abuse, uncomplicated Status: Chronic (9) Tachycardia ICD Code: R00.0 - Tachycardia, unspecified Status: Acute Assessment and Plan 46-year-old female with a past medical history of IVDA, cervical osteomyelitis, endocarditis, lumbar abscesses who presented with agitation and altered mental status. Tachycardia: Infrequent episodes noted over past 24 hours.Pt removed from telemetry. Endocarditis: Pt continues to tolerate IV antibiotics. Current IV line working. Hypertension: Continue to hold lisinopril. Acute encephalopathy: resolved. 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 Patient not candidate for PETER 2/2 cervical disease - ID following patient. Spoke to Dr. Carlos about plan for patient. Patient will require prolonged IV antibiotics. So far no nursing facility or Home health agency willing to take this patient due to her history. Case management following and updated on being a candidate for PO. Will explore option of transferring patient to PO to finish her IV antibiotics, stop date will be December to complete 4 weeks of antibiotic treatment. CM to continue to follow. Cervical spine osteomyelitis: Diagnosed July 2016. -Continue cervical collar. - Appreciate neurosurgery recommendations. - Patient is not a good surgical candidate at this time due to ongoing IV drug abuse and high infection risk. - MRI cervical spine 11/29 - Substantial improvement when compared to 08/06/16 substantial decrease in the amount of enhancement. - Ceretec tagged white cell study shows no abnormal white cell accumulation in the cervical spine. 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 Pain well controlled. Denies any numbness or tingling in upper extremities. - PT/OT eval/tx Chronic pain: She is an IV drug user. - Continue Percocet 5/325mg q4hrs, Percocet 7.5mg/325mg q4hrs. no plans to escalate pain medications. Patient is aware of this. Hypertension: - Will controlled at this time. Will continue to monitor BPs. -Continue to Hold lisinopril BMP and CBC pending this am. Follow. DVT prophylaxis: Lovenox. Full code Case discussed with Pt, RN, and Dr. Carreon Discharge Planning Difficult discharge. CM assisting. Chema Price Jr. Dec 21, 2016 14:25
[2016-12-21] MEDS: ENOXAPARIN SODIUM 40 MG/0.4 ML SYRINGE SQ SCH (21:53)
[2016-12-22] MEDS: oxyCODONE/ACETAMINOPHEN 7.5 MG/325 MG TAB PO PRN ×6 (02:01→22:42)
[2016-12-22 08:04] VITALS: BP 98/57; PULSE 74; RESP 18; TEMP 98; O2SAT 97
[2016-12-22] MEDS: SODIUM CHLORIDE 0.9% FLUSH 10 ML FLUSH IV FLUSH SCH ×2 (08:58→21:00)
[2016-12-22] MEDS: VENLAFAXINE HCL XR 37.5 MG CAP PO SCH (08:58)
[2016-12-22] MEDS: DOCUSATE SODIUM 100 MG CAP PO SCH ×2 (08:58→22:42)
[2016-12-22] MEDS: CETIRIZINE HCL 10 MG TAB PO SCH (08:58)
[2016-12-22] MEDS ORDERED: PHARMACY ORDERED LAB ONE (11:45)
[2016-12-22 12:02] VITALS: BP 101/55; PULSE 86; RESP 18; TEMP 98; O2SAT 98
[2016-12-22] MEDS: VANCOMYCIN 1,000 MG/NS 250 ML IV SCH ×2 (13:59)
[2016-12-22] MEDS ORDERED: SODIUM CHLORIDE 0.9% FLUSH 10 ML FLUSH IV FLUSH PRN (14:15)
--- NOTE | 2016-12-22 14:20 | RADRPT ---
EXAM DATE/TIME: 12/22/2016 13:33 [facility] COMPARISON: CHEST SINGLE AP, November 26, 2016, 14:22. INDICATIONS : Picc line placement. MEDICAL HISTORY : None. SURGICAL HISTORY : None. ENCOUNTER: Initial ACUITY: 3 weeks PAIN SCORE: 0/10 LOCATION: Bilateral chest FINDINGS: Interval placement of right-sided PICC line with tip in good position near the atriocaval junction. L ungs are slightly hyperaerated with mild interstitial prominence similar to prior exam. Cardiac silho uette is enlarged. Remainder of the exam is unchanged. CONCLUSION: 1. Right-sided PICC line tip in good position near the atriocaval junction. 2. No acute abnormality or significant interval change. Dao Oconnor MD on December 22, 2016 at 14:17 Board Certified Radiologist. This report was verified electronically.
--- NOTE | 2016-12-22 14:22 | HHI.PR ---
Subjective Remarks Follow up tricuspid valve endocarditis, cervical spine osteomyelitis, and hypertension. Patient seen and examined. Pt noted she felt "good." Patient again stated that she was interested in entering drug rehabilitation after discharge in order to maintain a sober lifestyle. Patient denied chest pain as well as shortness of breath. Patient stated that she is getting up and walking around her room in order to exercise. Patient reported decreased right arm pain at site above her IV insertion. She denied fever or discharge from the site. New IV placed in left arm. Reviewed pt's history regardning anxiety and depression. Pt said her depression is being well controlled with Effexor and wants to emain on it after her discharge. Pt said her anxiety is well controlled and not taking medication for it. She denied any new acute complaints overnight. Pt denied, chill, cough, shortness of breath, abdominal/chest pain, diarrhea, dysuria. Per RN (Rain) no acute issues noted overnight or since start of shift. RN stated PICC line was to be placed later today. Objective Vitals Vital Signs Date Time Temp Pulse Resp B/P (MAP) Pulse Ox O2 Delivery O2 Flow Rate FiO2 12/22/16 12:02 98.0 86 18 101/55 (70) 98 12/22/16 08:04 98.0 74 18 98/57 (71) 97 12/21/16 16:00 98.0 86 17 106/58 (74) 99 I/O 12/21/16 12/21/16 12/21/16 12/22/16 12/22/16 12/22/16 07:00 15:00 23:00 07:00 15:00 23:00 Intake Total 1300 ml 250 ml 720 ml 490 ml 480 ml Output Total 350 ml 250 ml 1000 ml Balance 1300 ml -100 ml 470 ml -510 ml 480 ml Intake Oral 1050 ml 720 ml 240 ml 480 ml IV Total 250 ml 250 ml 250 ml Output Urine Total 350 ml 250 ml 1000 ml # Voids 3 3 # Bowel Movements 0 1 2 Result Diagram: 12/21/16 0816 Imaging Last Impressions Tumor Localization 12/02/16 0000 Signed Impressions: Service Date/Time: Friday, December 02, 2016 16:43 - CONCLUSION: No abnormal white cell accumulation in the cervical spine. Luigi Thomas MD Cervical Spine MRI 11/29/16 0000 Signed Impressions: Service Date/Time: Tuesday, November 29, 2016 16:40 - CONCLUSION: Substantial improvement when compared to 08/06/16 substantial decrease in the amount of enhancement. Ceretec tagged white cell study may be of benefit to exclude residual inflammatory focus. Austin Dang MD FACR Cervical Spine CT 11/28/16 0000 Signed Impressions: Service Date/Time: Tuesday, November 29, 2016 11:22 - CONCLUSION: Stable changes when compared to 09/03/16. Spinal canal still remains adequate. Its difficult to assess the intra-and extradural components. A SPECT tagged white cell study with 3-D reconstructions could offer more information if continued infection is suspected. Austin Dang MD FACR Cervical Spine X-Ray 11/27/16 0000 Signed Impressions: Service Date/Time: October 14:02 - CONCLUSION: 1. Severe kyphosis centered at the C3 level approaching 90 which is mildly increased from the prior study. There is increased deformity of the inferior aspect of C2 with hypertrophic change and or soft tissue calcification. 2. Stable appearing deformity of the C3 vertebral body. 3. 4. Status post remote fusion of the C4- 5 and C6-7 levels. Reginald Michelle MD Chest X-Ray 11/26/16 1400 Signed Impressions: Service Date/Time: Saturday, November 26, 2016 14:22 - CONCLUSION: Prominent cardiac silhouette without suspicious lung lesions. Austin Dang MD FACR Objective Remarks GENERAL: Pt encountered standing/waling about room. NAD. SKIN: Warm and dry. HEAD: Normocephalic. EYES: No scleral icterus. No injection or drainage. NECK: Supple, trachea midline. CARDIOVASCULAR: Regular rate and rhythm without murmurs, gallops, or rubs. RESPIRATORY: Breath sounds equal bilaterally. No accessory muscle use. GASTROINTESTINAL: Abdomen soft, non-tender, nondistended. MUSCULOSKELETAL: No cyanosis, or edema. Pt wearing cervical collar. PSYCHIATRIC: Mood and affect bright. Insight and judgment adequate. Pt was pleasant and cooperative. Speech was clear and fluent. Procedures None Medications and IVs Current Medications Medications (Trade) Dose Ordered Sig/Declan Route Start Time Stop Time Status Last Admin (NS Flush) 2 ml UNSCH PRN IV FLUSH 11/26/16 17:30 12/08/16 21:31 (NS Flush) 2 ml BID IV FLUSH 11/26/16 21:00 12/22/16 08:58 (Tylenol) 650 mg Q4H PRN PO 11/26/16 17:30 (Lovenox Inj) 40 mg Q24H SQ 11/26/16 20:00 12/21/16 21:53 (Narcan Inj) 0.4 mg UNSCH PRN IV 11/26/16 17:30 (Milk Of Magnesia Liq) 30 ml Q12H PRN PO 11/26/16 17:30 (Senokot) 17.2 mg Q12H PRN PO 11/26/16 17:30 (Dulcolax Supp) 10 mg DAILY PRN RECTAL 11/26/16 17:30 (Lactulose Liq) 30 ml DAILY PRN PO 11/26/16 17:30 Pharmacy Profile Note 0 ml @ 0 mls/hr UNSCH OTHER 11/26/16 17:45 (ZyrTEC) 10 mg DAILY PO 11/27/16 09:00 12/22/16 08:58 (Colace) 100 mg Q12H PO 11/26/16 21:00 12/22/16 08:58 (Percocet 5-325 Mg) 1 tab Q4H PRN PO 11/26/16 18:15 12/19/16 05:34 (Effexor Xr) 37.5 mg DAILY PO 11/27/16 09:00 12/22/16 08:58 (Percocet 7.5-325 Mg) 1 tab Q4H PRN PO 11/27/16 12:00 12/22/16 10:33 (Ativan) 0.5 mg Q6H PRN PO 11/28/16 14:00 12/16/16 22:03 (Prinivil) 10 mg DAILY PO 12/01/16 13:30 Future Hold 12/04/16 08:40 Vancomycin HCl 1000 mg/Sodium Chloride 250 ml @ 250 mls/hr Q12H IV 12/21/16 00:00 12/22/16 13:59 Urinary Catheter: No A/P Problem List: (1) Amphetamine use disorder, severe, dependence ICD Code: F15.20 - Other stimulant dependence, uncomplicated Status: Acute (2) Abscess in epidural space of lumbar spine ICD Code: G06.1 - Intraspinal abscess and granuloma Status: Acute (3) Osteomyelitis of cervical spine ICD Code: M46.22 - Osteomyelitis of vertebra, cervical region Status: Acute (4) Neck abscess ICD Code: L02.11 - Cutaneous abscess of neck Status: Acute (5) Infectious endocarditis ICD Code: I33.0 - Acute and subacute infective endocarditis Status: Acute (6) Bacteremia ICD Code: R78.81 - Bacteremia Status: Acute (7) Fever ICD Code: R50.9 - Fever, unspecified Status: Resolved (8) IV drug abuse ICD Code: F19.10 - Other psychoactive substance abuse, uncomplicated Status: Chronic (9) Tachycardia ICD Code: R00.0 - Tachycardia, unspecified Status: Acute Assessment and Plan 46-year-old female with a past medical history of IVDA, cervical osteomyelitis, endocarditis, lumbar abscesses who presented with agitation and altered mental status. Tachycardia: One episode noted over past 24 hours. Strict I/O's order discontinued. Endocarditis: Pt continues to tolerate IV antibiotics. Peripheral IV line inserted yesterday. Awaiting placement of PICC. Hypertension: Continue to hold lisinopril. IVDU: Pt requesting assistance with rehab services. Discussed with CM who said she will provide information and contact information about the [employer] program. Acute encephalopathy: resolved. 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 Patient not candidate for PETER 2/2 cervical disease - ID following patient. Spoke to Dr. Carlos about plan for patient. Patient will require prolonged IV antibiotics. So far no nursing facility or Home health agency willing to take this patient due to her history. Case management following and updated on being a candidate for [facility]. Will explore option of transferring patient to [facility] to finish her IV antibiotics, stop date will be December to complete 4 weeks of antibiotic treatment. CM to continue to follow. Cervical spine osteomyelitis: Diagnosed July 2016. -Continue cervical collar. - Appreciate neurosurgery recommendations. - Patient is not a good surgical candidate at this time due to ongoing IV drug abuse and high infection risk. - MRI cervical spine 11/29 - Substantial improvement when compared to 08/06/16 substantial decrease in the amount of enhancement. - Ceretec tagged white cell study shows no abnormal white cell accumulation in the cervical spine. 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 Pain well controlled. Denies any numbness or tingling in upper extremities. - PT/OT eval/tx Chronic pain: She is an IV drug user. - Continue Percocet 5/325mg q4hrs, Percocet 7.5mg/325mg q4hrs. no plans to escalate pain medications. Patient is aware of this. Hypertension: - Will controlled at this time. Will continue to monitor BPs. -Continue to Hold lisinopril BMP and CBC pending this am. Follow. DVT prophylaxis: Lovenox. Full code Case discussed with Pt, RN,manager occupational, and Dr. Carreon Discharge Planning Difficult discharge. CM assisting. Discussed with CM pt's desire to enter drug rehab after leaving [facility]. CM noted she would present information and phone number to pt to contact the [facility] program. Chema Price Jr. ARY Dec 22, 2016 14:22
[2016-12-22 15:47] VITALS: BP 110/74; PULSE 95; RESP 18; TEMP 97.8; O2SAT 99
[2016-12-22 20:00] VITALS: BP 125/59; PULSE 101; RESP 18; TEMP 97.3; O2SAT 97
[2016-12-22] MEDS: ENOXAPARIN SODIUM 40 MG/0.4 ML SYRINGE SQ SCH (22:42)
[2016-12-23] VITALS: BP 103/55; PULSE 92; RESP 18; TEMP 97.5; O2SAT 96
[2016-12-23] MEDS: VANCOMYCIN 1,000 MG/NS 250 ML IV SCH ×4 (00:11→11:58)
[2016-12-23] MEDS: oxyCODONE/ACETAMINOPHEN 7.5 MG/325 MG TAB PO PRN ×5 (03:59→22:11)
[2016-12-23 04:00] VITALS: BP 99/58; PULSE 67; RESP 18; TEMP 97.6; O2SAT 96
[2016-12-23 08:27] VITALS: BP 111/64; PULSE 65; RESP 16; TEMP 98; O2SAT 98
[2016-12-23] MEDS: VENLAFAXINE HCL XR 37.5 MG CAP PO SCH (09:06)
[2016-12-23] MEDS: CETIRIZINE HCL 10 MG TAB PO SCH (09:06)
[2016-12-23] MEDS: DOCUSATE SODIUM 100 MG CAP PO SCH ×2 (09:06→22:11)
[2016-12-23] MEDS: SODIUM CHLORIDE 0.9% FLUSH 10 ML FLUSH IV FLUSH SCH ×3 (09:07→21:00)
--- NOTE | 2016-12-23 09:55 | HHI.PR ---
Subjective Remarks Follow-up on patient with endocarditis, cervical spine osteomyelitis, hypertension. Patient seen and examined today. Patient states she slept well. She denies any complaints overnight. Denies any fever or chills. Denies any nausea, vomiting or abdominal pain. Denies any chest pain or shortness of breath. Denies any diarrhea, constipation or urinary complaints. Objective Vitals Vital Signs Date Time Temp Pulse Resp B/P (MAP) Pulse Ox O2 Delivery O2 Flow Rate FiO2 12/23/16 09:07 16 12/23/16 08:27 98.0 65 16 111/64 (80) 98 12/23/16 04:00 97.6 67 18 99/58 (72) 96 12/23/16 00:00 97.5 92 18 103/55 (71) 96 12/22/16 20:00 97.3 101 18 125/59 (81) 97 12/22/16 15:47 97.8 95 18 110/74 (86) 99 12/22/16 12:02 98.0 86 18 101/55 (70) 98 I/O 12/22/16 12/22/16 12/22/16 12/23/16 12/23/16 12/23/16 07:00 15:00 23:00 07:00 15:00 23:00 Intake Total 490 ml 480 ml 250 ml 490 ml Output Total 1000 ml Balance -510 ml 480 ml 250 ml 490 ml Intake Oral 240 ml 480 ml 240 ml IV Total 250 ml 250 ml 250 ml Output Urine Total 1000 ml # Voids 3 4 # Bowel Movements 2 Result Diagram: 12/23/16 0630 Imaging Last Impressions Chest X-Ray 12/22/16 0000 Signed Impressions: Service Date/Time: Thursday, December 22, 2016 13:33 - CONCLUSION: 1. Right-sided PICC line tip in good position near the atriocaval junction. 2. No acute abnormality or significant interval change. Dao Oconnor MD Tumor Localization 12/02/16 0000 Signed Impressions: Service Date/Time: Friday, December 02, 2016 16:43 - CONCLUSION: No abnormal white cell accumulation in the cervical spine. Luigi Thomas MD Cervical Spine MRI 11/29/16 0000 Signed Impressions: Service Date/Time: Tuesday, November 29, 2016 16:40 - CONCLUSION: Substantial improvement when compared to 08/06/16 substantial decrease in the amount of enhancement. Ceretec tagged white cell study may be of benefit to exclude residual inflammatory focus. Austin Dang MD FACR Cervical Spine CT 11/28/16 0000 Signed Impressions: Service Date/Time: Tuesday, November 29, 2016 11:22 - CONCLUSION: Stable changes when compared to 09/03/16. Spinal canal still remains adequate. Its difficult to assess the intra-and extradural components. A SPECT tagged white cell study with 3-D reconstructions could offer more information if continued infection is suspected. Austin Dang MD FACR Cervical Spine X-Ray 11/27/16 0000 Signed Impressions: Service Date/Time: October 14:02 - CONCLUSION: 1. Severe kyphosis centered at the C3 level approaching 90 which is mildly increased from the prior study. There is increased deformity of the inferior aspect of C2 with hypertrophic change and or soft tissue calcification. 2. Stable appearing deformity of the C3 vertebral body. 3. 4. Status post remote fusion of the C4- 5 and C6-7 levels. Reginald Michelle MD Objective Remarks GENERAL: This is a well-nourished, well-developed patient, in no apparent distress. Lying in hospital bed. Awake and alert. Appears comfortable. Wearing soft cervical collar. SKIN: Warm and dry. Multiple scab wounds, BUE and BLE track mercado noted. PICC line RUE. HEENT: Normocephalic. EOMI. Nose without bleeding. Airway patent. MMM. NECK: Trachea midline. Supple. CARDIOVASCULAR: Regular rate and rhythm without murmurs, gallops, or rubs. RESPIRATORY: Clear to auscultation. Breath sounds equal bilaterally. No wheezes , rales, or rhonchi. GASTROINTESTINAL: Abdomen soft, non-tender, nondistended. Bowel Sounds normoactive x4. MUSCULOSKELETAL: Extremities without clubbing, cyanosis, or edema. NEUROLOGICAL: Awake and alert. Moves all extremities spontaneously. 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 Normal speech. Procedures None Medications and IVs Current Medications Medications (Trade) Dose Ordered Sig/Declan Route Start Time Stop Time Status Last Admin (NS Flush) 2 ml UNSCH PRN IV FLUSH 11/26/16 17:30 12/08/16 21:31 (NS Flush) 2 ml BID IV FLUSH 11/26/16 21:00 12/23/16 09:07 (Tylenol) 650 mg Q4H PRN PO 11/26/16 17:30 (Lovenox Inj) 40 mg Q24H SQ 11/26/16 20:00 12/22/16 22:42 (Narcan Inj) 0.4 mg UNSCH PRN IV 11/26/16 17:30 (Milk Of Magnesia Liq) 30 ml Q12H PRN PO 11/26/16 17:30 (Senokot) 17.2 mg Q12H PRN PO 11/26/16 17:30 (Dulcolax Supp) 10 mg DAILY PRN RECTAL 11/26/16 17:30 (Lactulose Liq) 30 ml DAILY PRN PO 11/26/16 17:30 Pharmacy Profile Note 0 ml @ 0 mls/hr UNSCH OTHER 11/26/16 17:45 (ZyrTEC) 10 mg DAILY PO 11/27/16 09:00 12/23/16 09:06 (Colace) 100 mg Q12H PO 11/26/16 21:00 12/23/16 09:06 (Percocet 5-325 Mg) 1 tab Q4H PRN PO 11/26/16 18:15 12/19/16 05:34 (Effexor Xr) 37.5 mg DAILY PO 11/27/16 09:00 12/23/16 09:06 (Percocet 7.5-325 Mg) 1 tab Q4H PRN PO 11/27/16 12:00 12/23/16 07:53 (Ativan) 0.5 mg Q6H PRN PO 11/28/16 14:00 12/16/16 22:03 (Prinivil) 10 mg DAILY PO 12/01/16 13:30 Future Hold 12/04/16 08:40 Vancomycin HCl 1000 mg/Sodium Chloride 250 ml @ 250 mls/hr Q12H IV 12/21/16 00:00 12/23/16 00:11 (NS Flush) See Protocol DAILY IV FLUSH 12/23/16 09:00 12/23/16 09:07 (NS Flush) See Protocol UNSCH PRN IV FLUSH 12/22/16 14:15 (Heparin Central Flush) See Protocol DAILY IV FLUSH 12/23/16 09:00 12/23/16 09:07 (Heparin Central Flush) See Protocol UNSCH PRN IV FLUSH 12/22/16 14:15 (NS Flush) UNSCH PRN IV FLUSH 12/22/16 14:15 A/P Problem List: (1) Amphetamine use disorder, severe, dependence ICD Code: F15.20 - Other stimulant dependence, uncomplicated Status: Acute (2) Abscess in epidural space of lumbar spine ICD Code: G06.1 - Intraspinal abscess and granuloma Status: Acute (3) Osteomyelitis of cervical spine ICD Code: M46.22 - Osteomyelitis of vertebra, cervical region Status: Acute (4) Neck abscess ICD Code: L02.11 - Cutaneous abscess of neck Status: Acute (5) Infectious endocarditis ICD Code: I33.0 - Acute and subacute infective endocarditis Status: Acute (6) Bacteremia ICD Code: R78.81 - Bacteremia Status: Acute (7) Fever ICD Code: R50.9 - Fever, unspecified Status: Resolved (8) IV drug abuse ICD Code: F19.10 - Other psychoactive substance abuse, uncomplicated Status: Chronic (9) Tachycardia ICD Code: R00.0 - Tachycardia, unspecified Status: Acute Assessment and Plan 46-year-old female with a past medical history of IVDA, cervical osteomyelitis, endocarditis, lumbar abscesses who presented with agitation and altered mental status. Acute encephalopathy: On presentation. - likely related to drug overdose. Urine drug screen positive for opiates and amphetamines. - Encephalopathy has since resolved. 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 Source is MRSA bacteremia, cellulitis of left arm, possible ongoing cervical spine osteomyelitis. - Continue IV antibiotics. Appreciate infectious disease recommendations. Blood cultures are positive for MRSA. Repeat BCX shows no growth x 5 days. - TV endocarditis previously for both MRSA and MSSA - 2D echo 11/30 EF 35-40%, vegetation on the posterior leaflet of the tricuspid valve. Patient not candidate for PETER 2/2 cervical disease - s/p PICC line placement 12/22/16 - As per ID recommendation vancomycin 4 weeks - tentative stop date January 02. Rifampin discontinued as Ceretec negative. Continue to monitor creatinine. - Per ID, patient can be placed in long term to complete treatment Cervical spine osteomyelitis: Diagnosed July 2016. Patient was evaluated by neurosurgery at that time. Continue cervical collar. - Appreciate neurosurgery recommendations. - Patient is not a good surgical candidate at this time due to ongoing IV drug abuse and high infection risk. Still complaining of neck pain, controlled. Tolerating soft collar. - MRI cervical spine 11/29 - Substantial improvement when compared to 08/06/16 substantial decrease in the amount of enhancement. - Ceretec tagged white cell study shows no abnormal white cell accumulation in the cervical spine. 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 MD discussed addiction issue with the patient. She is adamant that she does not abuse her prescriptions medication and reportedly had a relapse with amphetamines. - No changes should be made with her narcotics. Percocet 5/325mg q4hrs, Percocet 7.5mg/325mg q4hrs. Hypertension: - hypotensive, asymptomatic - Hold lisinopril - monitor BP DVT prophylaxis: Lovenox. Full code Discussed with patient, Dr. Carreon Discharge Planning Per ID, patient will need 4 weeks of IV abx - tentative stop date January 02. Difficult placement. Patient has been refused acceptance at [facility]. Luna Day Dec 23, 2016 09:55
[2016-12-23 12:18] VITALS: BP 116/61; PULSE 76; RESP 16; TEMP 98.1; O2SAT 97
[2016-12-23 16:08] VITALS: BP 138/78; PULSE 100; RESP 18; TEMP 97.4; O2SAT 100
[2016-12-23] MEDS: ENOXAPARIN SODIUM 40 MG/0.4 ML SYRINGE SQ SCH (22:10)
[2016-12-24] MEDS: VANCOMYCIN 1,000 MG/NS 250 ML IV SCH ×6 (00:23→23:45)
[2016-12-24 00:55] VITALS: BP 101/57; PULSE 106; RESP 16; TEMP 97.2; O2SAT 94
[2016-12-24] MEDS: oxyCODONE/ACETAMINOPHEN 7.5 MG/325 MG TAB PO PRN ×5 (02:44→21:00)
[2016-12-24 05:39] VITALS: BP 107/55; PULSE 69; RESP 16; TEMP 97.7; O2SAT 97
[2016-12-24 07:07] LABS: BATH SALTS (MDPV) UR NEG (NEG); ECSTASY (MDMA) UR NEG (NEG); HEROIN (6-ACETYLMORPHINE) UR NEG (NEG); K2 SPICE UR NEG (NEG); OBMETHADONE UR NEG (NEG); PHENCYCLIDINE URINE NEG (NEG)
[2016-12-24 07:12] LABS: GABAPENTIN UR NEG (NEG)
[2016-12-24 07:16] LABS: HYDROMORPHONE U POS (NEG)
[2016-12-24 08:54] VITALS: BP 138/79; PULSE 83; RESP 18; TEMP 97.9; O2SAT 95
[2016-12-24] MEDS: SODIUM CHLORIDE 0.9% FLUSH 10 ML FLUSH IV FLUSH SCH ×3 (09:00→21:00)
[2016-12-24] MEDS: CETIRIZINE HCL 10 MG TAB PO SCH (10:02)
[2016-12-24] MEDS: VENLAFAXINE HCL XR 37.5 MG CAP PO SCH (10:02)
[2016-12-24] MEDS: DOCUSATE SODIUM 100 MG CAP PO SCH ×2 (10:02→21:00)
--- NOTE | 2016-12-24 10:13 | HHI.PR ---
Subjective Remarks Follow-up on patient with endocarditis, cervical spine osteomyelitis, hypertension. Patient seen and examined. Patient witnessed ambulating in the room. Patient states she feels well. She denies any complaints. She denies any fever, chills or night sweats. She denies any nausea, vomiting or abdominal pain. Denies any chest pain or shortness of breath. Denies any diarrhea. Will try and obtain a new soft cervical collar for her as it appears very dirty and worn with loss its integrity. She states her right upper extremity pie maker machine strength is improving. Objective Vitals Vital Signs Date Time Temp Pulse Resp B/P (MAP) Pulse Ox O2 Delivery O2 Flow Rate FiO2 12/24/16 08:54 97.9 83 18 138/79 (98) 95 12/24/16 05:39 97.7 69 16 107/55 (72) 97 12/24/16 00:55 97.2 106 16 101/57 (72) 94 12/23/16 16:08 97.4 100 18 138/78 (98) 100 12/23/16 12:18 98.1 76 16 116/61 (79) 97 I/O 12/23/16 12/23/16 12/23/16 12/24/16 12/24/16 12/24/16 07:00 15:00 23:00 07:00 15:00 23:00 Intake Total 490 ml 480 ml 850 ml Balance 490 ml 480 ml 850 ml Intake Oral 240 ml 480 ml 600 ml IV Total 250 ml 250 ml # Voids 4 4 # Bowel Movements 1 Result Diagram: 12/23/16 0630 Imaging Last Impressions Chest X-Ray 12/22/16 0000 Signed Impressions: Service Date/Time: Thursday, December 22, 2016 13:33 - CONCLUSION: 1. Right-sided PICC line tip in good position near the atriocaval junction. 2. No acute abnormality or significant interval change. Dao Oconnor MD Tumor Localization 12/02/16 0000 Signed Impressions: Service Date/Time: Friday, December 02, 2016 16:43 - CONCLUSION: No abnormal white cell accumulation in the cervical spine. Luigi Thomas MD Cervical Spine MRI 11/29/16 0000 Signed Impressions: Service Date/Time: Tuesday, November 29, 2016 16:40 - CONCLUSION: Substantial improvement when compared to 08/06/16 substantial decrease in the amount of enhancement. Ceretec tagged white cell study may be of benefit to exclude residual inflammatory focus. Austin Dang MD FACR Cervical Spine CT 11/28/16 0000 Signed Impressions: Service Date/Time: Tuesday, November 29, 2016 11:22 - CONCLUSION: Stable changes when compared to 09/03/16. Spinal canal still remains adequate. Its difficult to assess the intra-and extradural components. A SPECT tagged white cell study with 3-D reconstructions could offer more information if continued infection is suspected. Austin Dang MD FACR Cervical Spine X-Ray 11/27/16 0000 Signed Impressions: Service Date/Time: October 14:02 - CONCLUSION: 1. Severe kyphosis centered at the C3 level approaching 90 which is mildly increased from the prior study. There is increased deformity of the inferior aspect of C2 with hypertrophic change and or soft tissue calcification. 2. Stable appearing deformity of the C3 vertebral body. 3. 4. Status post remote fusion of the C4- 5 and C6-7 levels. Reginald Michelle MD Objective Remarks GENERAL: This is a well-nourished, well-developed patient, in no apparent distress. Ambulating in room. Preparing to take a shower. Awake and alert. Appears comfortable. Family is present. SKIN: Warm and dry. Multiple scab wounds, BUE and BLE track mercado noted. PICC line RUE. HEENT: Normocephalic. EOMI. Nose without bleeding. Airway patent. MMM. NECK: Trachea midline. Supple. CARDIOVASCULAR: Regular rate and rhythm without murmurs, gallops, or rubs. RESPIRATORY: Clear to auscultation. Breath sounds equal bilaterally. No wheezes , rales, or rhonchi. GASTROINTESTINAL: Abdomen soft, non-tender, nondistended. Bowel Sounds normoactive x4. MUSCULOSKELETAL: Extremities without clubbing, cyanosis, or edema. NEUROLOGICAL: Awake and alert. Moves all extremities spontaneously. Slight decreased pie maker machine strength in RUE compared to LUE. Normal speech. Procedures None Medications and IVs Current Medications Medications (Trade) Dose Ordered Sig/Declan Route Start Time Stop Time Status Last Admin (NS Flush) 2 ml UNSCH PRN IV FLUSH 11/26/16 17:30 12/08/16 21:31 (NS Flush) 2 ml BID IV FLUSH 11/26/16 21:00 12/23/16 21:00 (Tylenol) 650 mg Q4H PRN PO 11/26/16 17:30 (Lovenox Inj) 40 mg Q24H SQ 11/26/16 20:00 12/23/16 22:10 (Narcan Inj) 0.4 mg UNSCH PRN IV 11/26/16 17:30 (Milk Of Magnesia Liq) 30 ml Q12H PRN PO 11/26/16 17:30 (Senokot) 17.2 mg Q12H PRN PO 11/26/16 17:30 (Dulcolax Supp) 10 mg DAILY PRN RECTAL 11/26/16 17:30 (Lactulose Liq) 30 ml DAILY PRN PO 11/26/16 17:30 Pharmacy Profile Note 0 ml @ 0 mls/hr UNSCH OTHER 11/26/16 17:45 (ZyrTEC) 10 mg DAILY PO 11/27/16 09:00 12/23/16 09:06 (Colace) 100 mg Q12H PO 11/26/16 21:00 12/23/16 22:11 (Percocet 5-325 Mg) 1 tab Q4H PRN PO 11/26/16 18:15 12/19/16 05:34 (Effexor Xr) 37.5 mg DAILY PO 11/27/16 09:00 12/23/16 09:06 (Percocet 7.5-325 Mg) 1 tab Q4H PRN PO 11/27/16 12:00 12/24/16 07:11 (Ativan) 0.5 mg Q6H PRN PO 11/28/16 14:00 12/16/16 22:03 (Prinivil) 10 mg DAILY PO 12/01/16 13:30 Future Hold 12/04/16 08:40 Vancomycin HCl 1000 mg/Sodium Chloride 250 ml @ 250 mls/hr Q12H IV 12/21/16 00:00 12/24/16 00:23 (NS Flush) See Protocol DAILY IV FLUSH 12/23/16 09:00 12/23/16 09:07 (NS Flush) See Protocol UNSCH PRN IV FLUSH 12/22/16 14:15 (Heparin Central Flush) See Protocol DAILY IV FLUSH 12/23/16 09:00 12/23/16 09:07 (Heparin Central Flush) See Protocol UNSCH PRN IV FLUSH 12/22/16 14:15 (NS Flush) UNSCH PRN IV FLUSH 12/22/16 14:15 A/P Problem List: (1) Amphetamine use disorder, severe, dependence ICD Code: F15.20 - Other stimulant dependence, uncomplicated Status: Acute (2) Abscess in epidural space of lumbar spine ICD Code: G06.1 - Intraspinal abscess and granuloma Status: Acute (3) Osteomyelitis of cervical spine ICD Code: M46.22 - Osteomyelitis of vertebra, cervical region Status: Acute (4) Neck abscess ICD Code: L02.11 - Cutaneous abscess of neck Status: Acute (5) Infectious endocarditis ICD Code: I33.0 - Acute and subacute infective endocarditis Status: Acute (6) Bacteremia ICD Code: R78.81 - Bacteremia Status: Acute (7) Fever ICD Code: R50.9 - Fever, unspecified Status: Resolved (8) IV drug abuse ICD Code: F19.10 - Other psychoactive substance abuse, uncomplicated Status: Chronic (9) Tachycardia ICD Code: R00.0 - Tachycardia, unspecified Status: Acute Assessment and Plan 46-year-old female with a past medical history of IVDA, cervical osteomyelitis, endocarditis, lumbar abscesses who presented with agitation and altered mental status. Acute encephalopathy: On presentation. - likely related to drug overdose. Urine drug screen positive for opiates and amphetamines. - Encephalopathy has since resolved. 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 Source is MRSA bacteremia, cellulitis of left arm, possible ongoing cervical spine osteomyelitis. - Continue IV antibiotics. Appreciate infectious disease recommendations. Blood cultures are positive for MRSA. Repeat BCX shows no growth x 5 days. - TV endocarditis previously for both MRSA and MSSA - 2D echo 11/30 EF 35-40%, vegetation on the posterior leaflet of the tricuspid valve. Patient not candidate for PETER 2/2 cervical disease - s/p PICC line placement 12/22/16 - As per ID recommendation vancomycin 4 weeks - tentative stop date January 02. Rifampin discontinued as Ceretec negative. Continue to monitor creatinine - stable. - Per ID, patient can be placed in fpc to complete treatment - add lactobacillus Cervical spine osteomyelitis: Diagnosed July 2016. Patient was evaluated by neurosurgery at that time. Continue cervical collar. - Appreciate neurosurgery recommendations. - Patient is not a good surgical candidate at this time due to ongoing IV drug abuse and high infection risk. Still complaining of neck pain, controlled. Tolerating soft collar. - MRI cervical spine 11/29 - Substantial improvement when compared to 08/06/16 substantial decrease in the amount of enhancement. - Ceretec tagged white cell study shows no abnormal white cell accumulation in the cervical spine. - will order new soft cervical collar as hers is worn, dirty with loss of its integrity RUE weakness/weak right pie maker machine strength - likely secondary to above - improving per patient report - no complaints of cervical radiculopathy - Continue PT/OT Chronic pain: She is an IV drug user. MD discussed addiction issue with the patient. She is adamant that she does not abuse her prescriptions medication and reportedly had a relapse with amphetamines. - No changes should be made with her narcotics. Percocet 5/325mg q4hrs, Percocet 7.5mg/325mg q4hrs. Hypertension: - hypotensive, asymptomatic - BP improved - Hold lisinopril - monitor BP DVT prophylaxis: Lovenox. Full code Discussed with patient, Dr. Carreon Discharge Planning Per ID, patient will need 4 weeks of IV abx - tentative stop date January 02. Difficult placement. Patient has been refused acceptance at [facility]. Possible transfer to [place] in the near future. Luna Day Dec 24, 2016 10:13
[2016-12-24] MEDS: LACTOBACILLUS ACIDOPHILUS TAB PO SCH ×2 (11:29→21:00)
[2016-12-24 12:19] VITALS: BP 116/67; PULSE 72; RESP 18; TEMP 97.5; O2SAT 97
[2016-12-24 17:03] VITALS: BP 118/63; PULSE 81; RESP 18; TEMP 98; O2SAT 98
[2016-12-24 20:00] VITALS: BP 122/60; PULSE 77; RESP 20; TEMP 98; O2SAT 97
[2016-12-24] MEDS: ENOXAPARIN SODIUM 40 MG/0.4 ML SYRINGE SQ SCH (21:00)
[2016-12-25] VITALS: BP 126/56; PULSE 86; RESP 20; TEMP 97.6; O2SAT 97
[2016-12-25] MEDS: oxyCODONE/ACETAMINOPHEN 7.5 MG/325 MG TAB PO PRN ×4 (03:39→23:35)
[2016-12-25 04:00] VITALS: BP 129/59; PULSE 94; RESP 20; TEMP 98.9; O2SAT 99
[2016-12-25] MEDS: SODIUM CHLORIDE 0.9% FLUSH 10 ML FLUSH IV FLUSH SCH ×3 (09:00→23:36)
[2016-12-25 09:06] VITALS: BP 128/90; PULSE 86; RESP 18; TEMP 98.2; O2SAT 97
[2016-12-25] MEDS: DOCUSATE SODIUM 100 MG CAP PO SCH ×2 (09:33→23:35)
[2016-12-25] MEDS: LACTOBACILLUS ACIDOPHILUS TAB PO SCH ×2 (09:33→23:35)
[2016-12-25] MEDS: CETIRIZINE HCL 10 MG TAB PO SCH (09:33)
[2016-12-25] MEDS: VENLAFAXINE HCL XR 37.5 MG CAP PO SCH (09:33)
--- NOTE | 2016-12-25 10:48 | HHI.PR ---
Subjective Remarks Follow-up on patient with endocarditis, cervical spine osteomyelitis, hypertension. Patient seen and examined. Patient very excited about receiving her new cervical collar. She states she is doing well. She denies any acute medical complaints. Patient is ambulating in room. She denies any f/c/n/v, shortness of breath, chest pain, abdominal pain, diarrhea, constipation or urinary difficulties. Patient reports occasional headache that she attributes to her neck but is asymptomatic at present. Patient contacted [facility] but they do not take her insurance. Objective Vitals Vital Signs Date Time Temp Pulse Resp B/P (MAP) Pulse Ox O2 Delivery O2 Flow Rate FiO2 12/25/16 09:06 98.2 86 18 128/90 (103) 97 12/25/16 04:00 98.9 94 20 129/59 (82) 99 12/25/16 00:00 97.6 86 20 126/56 (79) 97 12/24/16 22:09 14 12/24/16 20:00 98.0 77 20 122/60 (80) 97 12/24/16 17:03 98.0 81 18 118/63 (81) 98 12/24/16 12:19 97.5 72 18 116/67 (83) 97 I/O 12/24/16 12/24/16 12/24/16 12/25/16 12/25/16 12/25/16 07:00 15:00 23:00 07:00 15:00 23:00 Intake Total 850 ml 240 ml Balance 850 ml 240 ml Intake Oral 600 ml 240 ml IV Total 250 ml # Voids 4 5 # Bowel Movements 1 Result Diagram: 12/25/16 0725 Imaging Last Impressions Chest X-Ray 12/22/16 0000 Signed Impressions: Service Date/Time: Thursday, December 22, 2016 13:33 - CONCLUSION: 1. Right-sided PICC line tip in good position near the atriocaval junction. 2. No acute abnormality or significant interval change. Dao Oconnor MD Tumor Localization 12/02/16 0000 Signed Impressions: Service Date/Time: Friday, December 02, 2016 16:43 - CONCLUSION: No abnormal white cell accumulation in the cervical spine. Luigi Thomas MD Cervical Spine MRI 11/29/16 0000 Signed Impressions: Service Date/Time: Tuesday, November 29, 2016 16:40 - CONCLUSION: Substantial improvement when compared to 08/06/16 substantial decrease in the amount of enhancement. Ceretec tagged white cell study may be of benefit to exclude residual inflammatory focus. Austin Dang MD FACR Cervical Spine CT 11/28/16 0000 Signed Impressions: Service Date/Time: Tuesday, November 29, 2016 11:22 - CONCLUSION: Stable changes when compared to 09/03/16. Spinal canal still remains adequate. Its difficult to assess the intra-and extradural components. A SPECT tagged white cell study with 3-D reconstructions could offer more information if continued infection is suspected. Austin Dang MD FACR Cervical Spine X-Ray 11/27/16 0000 Signed Impressions: Service Date/Time: October 14:02 - CONCLUSION: 1. Severe kyphosis centered at the C3 level approaching 90 which is mildly increased from the prior study. There is increased deformity of the inferior aspect of C2 with hypertrophic change and or soft tissue calcification. 2. Stable appearing deformity of the C3 vertebral body. 3. 4. Status post remote fusion of the C4- 5 and C6-7 levels. Reginald Michelle MD Objective Remarks GENERAL: This is a well-nourished, well-developed patient, in no apparent distress. Ambulating in room. Awake and alert. Appears comfortable. SKIN: Warm and dry. Multiple scab wounds, BUE and BLE track mercado noted. PICC line RUE. HEENT: Normocephalic. EOMI. Nose without bleeding. Airway patent. MMM. NECK: Trachea midline. Supple. CARDIOVASCULAR: Regular rate and rhythm without murmurs, gallops, or rubs. RESPIRATORY: Clear to auscultation. Breath sounds equal bilaterally. No wheezes , rales, or rhonchi. GASTROINTESTINAL: Abdomen soft, non-tender, nondistended. Bowel Sounds normoactive x4. MUSCULOSKELETAL: Extremities without clubbing, cyanosis, or edema. NEUROLOGICAL: Awake and alert. Moves all extremities spontaneously. Slight decreased product sales engineer strength in RUE compared to LUE. Normal speech. Procedures None Medications and IVs Current Medications Medications (Trade) Dose Ordered Sig/Declan Route Start Time Stop Time Status Last Admin (NS Flush) 2 ml UNSCH PRN IV FLUSH 11/26/16 17:30 12/08/16 21:31 (NS Flush) 2 ml BID IV FLUSH 11/26/16 21:00 12/24/16 21:00 (Tylenol) 650 mg Q4H PRN PO 11/26/16 17:30 (Lovenox Inj) 40 mg Q24H SQ 11/26/16 20:00 12/24/16 21:00 (Narcan Inj) 0.4 mg UNSCH PRN IV 11/26/16 17:30 (Milk Of Magnesia Liq) 30 ml Q12H PRN PO 11/26/16 17:30 (Senokot) 17.2 mg Q12H PRN PO 11/26/16 17:30 (Dulcolax Supp) 10 mg DAILY PRN RECTAL 11/26/16 17:30 (Lactulose Liq) 30 ml DAILY PRN PO 11/26/16 17:30 Pharmacy Profile Note 0 ml @ 0 mls/hr UNSCH OTHER 11/26/16 17:45 (ZyrTEC) 10 mg DAILY PO 11/27/16 09:00 12/25/16 09:33 (Colace) 100 mg Q12H PO 11/26/16 21:00 12/25/16 09:33 (Percocet 5-325 Mg) 1 tab Q4H PRN PO 11/26/16 18:15 12/19/16 05:34 (Effexor Xr) 37.5 mg DAILY PO 11/27/16 09:00 12/25/16 09:33 (Percocet 7.5-325 Mg) 1 tab Q4H PRN PO 11/27/16 12:00 12/25/16 09:33 (Ativan) 0.5 mg Q6H PRN PO 11/28/16 14:00 12/16/16 22:03 (Prinivil) 10 mg DAILY PO 12/01/16 13:30 Future Hold 12/04/16 08:40 Vancomycin HCl 1000 mg/Sodium Chloride 250 ml @ 250 mls/hr Q12H IV 12/21/16 00:00 12/24/16 23:45 (NS Flush) See Protocol DAILY IV FLUSH 12/23/16 09:00 12/25/16 09:39 (NS Flush) See Protocol UNSCH PRN IV FLUSH 12/22/16 14:15 (Heparin Central Flush) See Protocol DAILY IV FLUSH 12/23/16 09:00 12/25/16 09:35 (Heparin Central Flush) See Protocol UNSCH PRN IV FLUSH 12/22/16 14:15 (NS Flush) UNSCH PRN IV FLUSH 12/22/16 14:15 (Lactinex) 1 tab Q12HR PO 12/24/16 10:15 12/25/16 09:33 A/P Problem List: (1) Amphetamine use disorder, severe, dependence ICD Code: F15.20 - Other stimulant dependence, uncomplicated Status: Acute (2) Abscess in epidural space of lumbar spine ICD Code: G06.1 - Intraspinal abscess and granuloma Status: Acute (3) Osteomyelitis of cervical spine ICD Code: M46.22 - Osteomyelitis of vertebra, cervical region Status: Acute (4) Neck abscess ICD Code: L02.11 - Cutaneous abscess of neck Status: Acute (5) Infectious endocarditis ICD Code: I33.0 - Acute and subacute infective endocarditis Status: Acute (6) Bacteremia ICD Code: R78.81 - Bacteremia Status: Acute (7) Fever ICD Code: R50.9 - Fever, unspecified Status: Resolved (8) IV drug abuse ICD Code: F19.10 - Other psychoactive substance abuse, uncomplicated Status: Chronic (9) Tachycardia ICD Code: R00.0 - Tachycardia, unspecified Status: Acute Assessment and Plan 46-year-old female with a past medical history of IVDA, cervical osteomyelitis, endocarditis, lumbar abscesses who presented with agitation and altered mental status. Acute encephalopathy: On presentation. - likely related to drug overdose. Urine drug screen positive for opiates and amphetamines. - Encephalopathy has since resolved. 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 Source is MRSA bacteremia, cellulitis of left arm, possible ongoing cervical spine osteomyelitis. - Continue IV antibiotics. Appreciate infectious disease recommendations. Blood cultures are positive for MRSA. Repeat BCX shows no growth x 5 days. - TV endocarditis previously for both MRSA and MSSA - 2D echo 11/30 EF 35-40%, vegetation on the posterior leaflet of the tricuspid valve, mild to moderate tricuspid valve regurgitation, mild PHTN. Patient not candidate for PETER 2/2 cervical disease - s/p PICC line placement 12/22/16 - As per ID recommendation vancomycin 4 weeks - tentative stop date January 02. Rifampin discontinued as Ceretec negative. Continue to monitor creatinine - stable. - Per ID, patient can be placed in usp to complete treatment - continue lactobacillus - patient remains afebrile Cervical spine osteomyelitis: Diagnosed July 2016. Patient was evaluated by neurosurgery at that time. Continue cervical collar. - Appreciate neurosurgery recommendations. - Patient is not a good surgical candidate at this time due to ongoing IV drug abuse and high infection risk. Still complaining of neck pain, controlled. Tolerating soft collar. - MRI cervical spine 11/29 - Substantial improvement when compared to 08/06/16 substantial decrease in the amount of enhancement. - Ceretec tagged white cell study shows no abnormal white cell accumulation in the cervical spine. RUE weakness/weak right product sales engineer strength - likely secondary to above - improving per patient report - no complaints of cervical radiculopathy - Continue PT/OT Chronic pain: She is an IV drug user. discussed addiction issue with the patient. She is adamant that she does not abuse her prescriptions medication and reportedly had a relapse with amphetamines. - No changes should be made with her narcotics. Percocet 5/325mg q4hrs, Percocet 7.5mg/325mg q4hrs. Hypertension: - hypotensive, asymptomatic - BP improved - Hold lisinopril - monitor BP DVT prophylaxis: Lovenox. Full code Discussed with patient, Dr. Carreon Discharge Planning Per ID, patient will need 4 weeks of IV abx - tentative stop date January 02. Difficult placement. Patient has been refused acceptance at [facility]. Possible transfer to [place] in the near future. Luna Day Dec 25, 2016 10:48
[2016-12-25] MEDS: VANCOMYCIN 1,000 MG/NS 250 ML IV SCH ×4 (12:30→23:35)
[2016-12-25 12:50] VITALS: BP 105/62; PULSE 88; RESP 18; TEMP 98.1; O2SAT 95
[2016-12-25 16:35] VITALS: BP 139/69; PULSE 81; RESP 18; TEMP 97.7; O2SAT 99
[2016-12-25 20:32] VITALS: BP 121/58; PULSE 97; RESP 16; TEMP 97.1; O2SAT 97
[2016-12-25] MEDS: ENOXAPARIN SODIUM 40 MG/0.4 ML SYRINGE SQ SCH (23:33)
[2016-12-26 01:15] VITALS: BP 112/67; PULSE 98; RESP 16; TEMP 98; O2SAT 97
[2016-12-26 04:05] VITALS: BP 121/58; PULSE 75; RESP 18; TEMP 97.4; O2SAT 99
[2016-12-26 08:07] VITALS: BP 114/67; PULSE 100; RESP 18; TEMP 98.3; O2SAT 97
[2016-12-26] MEDS: VENLAFAXINE HCL XR 37.5 MG CAP PO SCH (08:19)
[2016-12-26] MEDS: LACTOBACILLUS ACIDOPHILUS TAB PO SCH ×2 (08:19→21:07)
[2016-12-26] MEDS: DOCUSATE SODIUM 100 MG CAP PO SCH ×2 (08:19→21:07)
[2016-12-26] MEDS: CETIRIZINE HCL 10 MG TAB PO SCH (08:19)
[2016-12-26] MEDS: SODIUM CHLORIDE 0.9% FLUSH 10 ML FLUSH IV FLUSH SCH ×3 (08:20→21:00)
[2016-12-26] MEDS: oxyCODONE/ACETAMINOPHEN 7.5 MG/325 MG TAB PO PRN ×2 (08:20→21:06)
--- NOTE | 2016-12-26 08:39 | HHI.PR ---
Subjective Remarks Follow-up on patient with endocarditis, cervical spine osteomyelitis, hypertension. Patient seen and examined. Patient ambulating around her room. She denies any complaints. States she feels well. Denies any fever, chills or night sweats. Denies any chest pain or shortness of breath. Cervical pain is stable. Denies any N/V, abdominal pain or diarrhea. Denies any urinary complaints. Objective Vitals Vital Signs Date Time Temp Pulse Resp B/P (MAP) Pulse Ox O2 Delivery O2 Flow Rate FiO2 12/26/16 08:07 98.3 100 18 114/67 (83) 97 12/26/16 04:05 97.4 75 18 121/58 (79) 99 12/26/16 01:15 98.0 98 16 112/67 (82) 97 12/25/16 20:32 97.1 97 16 121/58 (79) 97 12/25/16 16:35 97.7 81 18 139/69 (92) 99 12/25/16 12:50 98.1 88 18 105/62 (76) 95 12/25/16 10:33 18 12/25/16 09:06 98.2 86 18 128/90 (103) 97 I/O 12/25/16 12/25/16 12/25/16 12/26/16 12/26/16 12/26/16 06:59 14:59 22:59 06:59 14:59 22:59 Intake Total 480 ml Balance 480 ml Intake Oral 480 ml # Voids 6 3 # Bowel Movements 1 Result Diagram: 12/25/16 0725 Imaging Last Impressions Chest X-Ray 12/22/16 0000 Signed Impressions: Service Date/Time: Thursday, December 22, 2016 13:33 - CONCLUSION: 1. Right-sided PICC line tip in good position near the atriocaval junction. 2. No acute abnormality or significant interval change. Dao Oconnor MD Tumor Localization 12/02/16 0000 Signed Impressions: Service Date/Time: Friday, December 02, 2016 16:43 - CONCLUSION: No abnormal white cell accumulation in the cervical spine. Luigi Thomas MD Cervical Spine MRI 11/29/16 0000 Signed Impressions: Service Date/Time: Tuesday, November 29, 2016 16:40 - CONCLUSION: Substantial improvement when compared to 08/06/16 substantial decrease in the amount of enhancement. Ceretec tagged white cell study may be of benefit to exclude residual inflammatory focus. Austin Dang MD FACR Cervical Spine CT 11/28/16 0000 Signed Impressions: Service Date/Time: Tuesday, November 29, 2016 11:22 - CONCLUSION: Stable changes when compared to 09/03/16. Spinal canal still remains adequate. Its difficult to assess the intra-and extradural components. A SPECT tagged white cell study with 3-D reconstructions could offer more information if continued infection is suspected. Austin Dang MD FACR Cervical Spine X-Ray 11/27/16 0000 Signed Impressions: Service Date/Time: October 14:02 - CONCLUSION: 1. Severe kyphosis centered at the C3 level approaching 90 which is mildly increased from the prior study. There is increased deformity of the inferior aspect of C2 with hypertrophic change and or soft tissue calcification. 2. Stable appearing deformity of the C3 vertebral body. 3. 4. Status post remote fusion of the C4- 5 and C6-7 levels. Reginald Michelle MD Objective Remarks GENERAL: This is a well-nourished, well-developed patient, in no apparent distress. Ambulating in room. Awake and alert. Appears comfortable. Wearing soft cervical collar. SKIN: Warm and dry. Multiple scab wounds, BUE and BLE track mercado noted. PICC line RUE. HEENT: Normocephalic. Atraumatic. EOMI. Nose without bleeding. Airway patent. MMM. NECK: Trachea midline. Supple. CARDIOVASCULAR: Regular rate and rhythm without murmurs, gallops, or rubs. RESPIRATORY: Clear to auscultation. Breath sounds equal bilaterally. No wheezes , rales, or rhonchi. GASTROINTESTINAL: Abdomen soft, non-tender, nondistended. Bowel Sounds normoactive x4. MUSCULOSKELETAL: Extremities without clubbing, cyanosis, or edema. NEUROLOGICAL: Awake and alert. Moves all extremities spontaneously. Slight decreased accounting administrative assistant strength in RUE compared to LUE. Normal speech. Procedures None Medications and IVs Current Medications Medications (Trade) Dose Ordered Sig/Declan Route Start Time Stop Time Status Last Admin (NS Flush) 2 ml UNSCH PRN IV FLUSH 11/26/16 17:30 12/08/16 21:31 (NS Flush) 2 ml BID IV FLUSH 11/26/16 21:00 12/25/16 23:36 (Tylenol) 650 mg Q4H PRN PO 11/26/16 17:30 (Lovenox Inj) 40 mg Q24H SQ 11/26/16 20:00 12/25/16 23:33 (Narcan Inj) 0.4 mg UNSCH PRN IV 11/26/16 17:30 (Milk Of Magnesia Liq) 30 ml Q12H PRN PO 11/26/16 17:30 (Senokot) 17.2 mg Q12H PRN PO 11/26/16 17:30 (Dulcolax Supp) 10 mg DAILY PRN RECTAL 11/26/16 17:30 (Lactulose Liq) 30 ml DAILY PRN PO 11/26/16 17:30 Pharmacy Profile Note 0 ml @ 0 mls/hr UNSCH OTHER 11/26/16 17:45 (ZyrTEC) 10 mg DAILY PO 11/27/16 09:00 12/26/16 08:19 (Colace) 100 mg Q12H PO 11/26/16 21:00 12/26/16 08:19 (Percocet 5-325 Mg) 1 tab Q4H PRN PO 11/26/16 18:15 12/19/16 05:34 (Effexor Xr) 37.5 mg DAILY PO 11/27/16 09:00 12/26/16 08:19 (Percocet 7.5-325 Mg) 1 tab Q4H PRN PO 11/27/16 12:00 12/26/16 08:20 (Ativan) 0.5 mg Q6H PRN PO 11/28/16 14:00 12/16/16 22:03 (Prinivil) 10 mg DAILY PO 12/01/16 13:30 Future Hold 12/04/16 08:40 Vancomycin HCl 1000 mg/Sodium Chloride 250 ml @ 250 mls/hr Q12H IV 12/21/16 00:00 12/25/16 23:35 (NS Flush) See Protocol DAILY IV FLUSH 12/23/16 09:00 12/25/16 09:39 (NS Flush) See Protocol UNSCH PRN IV FLUSH 12/22/16 14:15 (Heparin Central Flush) See Protocol DAILY IV FLUSH 12/23/16 09:00 12/26/16 08:19 (Heparin Central Flush) See Protocol UNSCH PRN IV FLUSH 12/22/16 14:15 (NS Flush) UNSCH PRN IV FLUSH 12/22/16 14:15 12/26/16 08:19 (Lactinex) 1 tab Q12HR PO 12/24/16 10:15 12/26/16 08:19 A/P Problem List: (1) Amphetamine use disorder, severe, dependence ICD Code: F15.20 - Other stimulant dependence, uncomplicated Status: Acute (2) Abscess in epidural space of lumbar spine ICD Code: G06.1 - Intraspinal abscess and granuloma Status: Acute (3) Osteomyelitis of cervical spine ICD Code: M46.22 - Osteomyelitis of vertebra, cervical region Status: Acute (4) Neck abscess ICD Code: L02.11 - Cutaneous abscess of neck Status: Acute (5) Infectious endocarditis ICD Code: I33.0 - Acute and subacute infective endocarditis Status: Acute (6) Bacteremia ICD Code: R78.81 - Bacteremia Status: Acute (7) Fever ICD Code: R50.9 - Fever, unspecified Status: Resolved (8) IV drug abuse ICD Code: F19.10 - Other psychoactive substance abuse, uncomplicated Status: Chronic (9) Tachycardia ICD Code: R00.0 - Tachycardia, unspecified Status: Acute Assessment and Plan 46-year-old female with a past medical history of IVDA, cervical osteomyelitis, endocarditis, lumbar abscesses who presented with agitation and altered mental status. Acute encephalopathy: On presentation. - likely related to drug overdose. Urine drug screen positive for opiates and amphetamines. - Encephalopathy has since resolved. 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 Source is MRSA bacteremia, cellulitis of left arm, possible ongoing cervical spine osteomyelitis. - Continue IV antibiotics. Appreciate infectious disease recommendations. Blood cultures are positive for MRSA. Repeat BCX shows no growth x 5 days. - TV endocarditis previously for both MRSA and MSSA - 2D echo 11/30 EF 35-40%, vegetation on the posterior leaflet of the tricuspid valve, mild to moderate tricuspid valve regurgitation, mild PHTN. Patient not candidate for PETER 2/2 cervical disease - s/p PICC line placement 12/22/16 - As per ID recommendation vancomycin 4 weeks - tentative stop date January 02. Rifampin discontinued as Ceretec negative. Continue to monitor creatinine - stable. - Per ID, patient can be placed in group home to complete treatment - continue lactobacillus - patient remains afebrile Cervical spine osteomyelitis: Diagnosed July 2016. Patient was evaluated by neurosurgery at that time. Continue cervical collar. - Appreciate neurosurgery recommendations. - Patient is not a good surgical candidate at this time due to ongoing IV drug abuse and high infection risk. Still complaining of neck pain, controlled. Tolerating soft collar. - MRI cervical spine 11/29 - Substantial improvement when compared to 08/06/16 substantial decrease in the amount of enhancement. - Ceretec tagged white cell study shows no abnormal white cell accumulation in the cervical spine. RUE weakness/weak right accounting administrative assistant strength - likely secondary to above - improving per patient report - no complaints of cervical radiculopathy - Continue PT/OT Chronic pain: She is an IV drug user. MD discussed addiction issue with the patient. She is adamant that she does not abuse her prescriptions medication and reportedly had a relapse with amphetamines. - No changes should be made with her narcotics. Percocet 5/325mg q4hrs, Percocet 7.5mg/325mg q4hrs. Hypertension: - hypotensive, asymptomatic - BP improved - Hold lisinopril - monitor BP DVT prophylaxis: Lovenox. Full code Discussed with patient, Dr. Carreon Discharge Planning Per ID, patient will need 4 weeks of IV abx - tentative stop date January 02. Difficult placement. Patient has been refused acceptance at [facility]. Possible transfer to [place] in the near future. Luna Day Dec 26, 2016 08:39
[2016-12-26 11:47] VITALS: BP 117/65; PULSE 73; RESP 17; TEMP 97.8; O2SAT 100
[2016-12-26] MEDS: VANCOMYCIN 1,000 MG/NS 250 ML IV SCH ×2 (13:45)
[2016-12-26 16:14] VITALS: BP 127/69; PULSE 77; RESP 18; TEMP 99.1; O2SAT 99
[2016-12-26] MEDS: ENOXAPARIN SODIUM 40 MG/0.4 ML SYRINGE SQ SCH (21:07)
[2016-12-27] MEDS: VANCOMYCIN 1,000 MG/NS 250 ML IV SCH ×4 (00:26→12:30)
[2016-12-27] MEDS: oxyCODONE/ACETAMINOPHEN 7.5 MG/325 MG TAB PO PRN ×4 (01:45→21:27)
[2016-12-27 04:00] VITALS: BP 148/66; PULSE 63; RESP 18; TEMP 97.7; O2SAT 95
[2016-12-27 08:17] VITALS: BP 116/63; PULSE 64; RESP 16; TEMP 97.3; O2SAT 94
[2016-12-27] MEDS: CETIRIZINE HCL 10 MG TAB PO SCH (08:56)
[2016-12-27] MEDS: LACTOBACILLUS ACIDOPHILUS TAB PO SCH ×2 (08:56→21:27)
[2016-12-27] MEDS: VENLAFAXINE HCL XR 37.5 MG CAP PO SCH (08:56)
[2016-12-27] MEDS: SODIUM CHLORIDE 0.9% FLUSH 10 ML FLUSH IV FLUSH SCH ×3 (08:57→21:28)
[2016-12-27] MEDS: DOCUSATE SODIUM 100 MG CAP PO SCH ×2 (08:57→21:27)
--- NOTE | 2016-12-27 09:17 | HHI.PR ---
Subjective Remarks Follow-up on patient with endocarditis, cervical spine osteomyelitis, hypertension. Patient seen and examined. Patient asleep but easily awakens to voice. Denies any acute medical complaints. No new issues. Denies any f/c/n/v , chest pain, SOB, abdominal pain or diarrhea. Reports normal BM yesterday. Objective Vitals Vital Signs Date Time Temp Pulse Resp B/P (MAP) Pulse Ox O2 Delivery O2 Flow Rate FiO2 12/27/16 08:17 97.3 64 16 116/63 (80) 94 12/27/16 04:00 97.7 63 18 148/66 (93) 95 12/26/16 16:14 99.1 77 18 127/69 (88) 99 12/26/16 11:47 97.8 73 17 117/65 (82) 100 I/O 12/26/16 12/26/16 12/26/16 12/27/16 12/27/16 12/27/16 07:00 15:00 23:00 07:00 15:00 23:00 Intake Total 610 ml 250 ml Output Total 5 ml Balance 610 ml 245 ml Intake Oral 360 ml IV Total 250 ml 250 ml Output Urine Total 5 ml # Voids 3 4 2 # Bowel Movements 1 Result Diagram: 12/27/16 0604 Imaging Last Impressions Chest X-Ray 12/22/16 0000 Signed Impressions: Service Date/Time: Thursday, December 22, 2016 13:33 - CONCLUSION: 1. Right-sided PICC line tip in good position near the atriocaval junction. 2. No acute abnormality or significant interval change. Dao Oconnor MD Tumor Localization 12/02/16 0000 Signed Impressions: Service Date/Time: Friday, December 02, 2016 16:43 - CONCLUSION: No abnormal white cell accumulation in the cervical spine. Luigi Thomas MD Cervical Spine MRI 11/29/16 0000 Signed Impressions: Service Date/Time: Tuesday, November 29, 2016 16:40 - CONCLUSION: Substantial improvement when compared to 08/06/16 substantial decrease in the amount of enhancement. Ceretec tagged white cell study may be of benefit to exclude residual inflammatory focus. Austin Dang MD FACR Cervical Spine CT 11/28/16 0000 Signed Impressions: Service Date/Time: Tuesday, November 29, 2016 11:22 - CONCLUSION: Stable changes when compared to 09/03/16. Spinal canal still remains adequate. Its difficult to assess the intra-and extradural components. A SPECT tagged white cell study with 3-D reconstructions could offer more information if continued infection is suspected. Austin Dang MD FACR Cervical Spine X-Ray 11/27/16 0000 Signed Impressions: Service Date/Time: October 14:02 - CONCLUSION: 1. Severe kyphosis centered at the C3 level approaching 90 which is mildly increased from the prior study. There is increased deformity of the inferior aspect of C2 with hypertrophic change and or soft tissue calcification. 2. Stable appearing deformity of the C3 vertebral body. 3. 4. Status post remote fusion of the C4- 5 and C6-7 levels. Reginald Michelle MD Objective Remarks GENERAL: This is a well-nourished, well-developed patient, in no apparent distress. Asleep in bed, awakens easily to voice. Appears comfortable. Family member in room. SKIN: Warm and dry. Multiple scab wounds, BUE and BLE track mercado noted. PICC line RUE. HEENT: Normocephalic. Atraumatic. EOMI. Nose without bleeding. Airway patent. MMM. NECK: Trachea midline. Supple. CARDIOVASCULAR: Regular rate and rhythm without murmurs, gallops, or rubs. RESPIRATORY: Clear to auscultation. Breath sounds equal bilaterally. No wheezes , rales, or rhonchi. GASTROINTESTINAL: Abdomen soft, non-tender, nondistended. Bowel Sounds normoactive x4. MUSCULOSKELETAL: Extremities without clubbing, cyanosis, or edema. NEUROLOGICAL: Awake and alert. Moves all extremities spontaneously. Normal speech. Procedures None Medications and IVs Current Medications Medications (Trade) Dose Ordered Sig/Declan Route Start Time Stop Time Status Last Admin (NS Flush) 2 ml UNSCH PRN IV FLUSH 11/26/16 17:30 12/08/16 21:31 (NS Flush) 2 ml BID IV FLUSH 11/26/16 21:00 12/26/16 21:00 (Tylenol) 650 mg Q4H PRN PO 11/26/16 17:30 (Lovenox Inj) 40 mg Q24H SQ 11/26/16 20:00 12/26/16 21:07 (Narcan Inj) 0.4 mg UNSCH PRN IV 11/26/16 17:30 (Milk Of Magnesia Liq) 30 ml Q12H PRN PO 11/26/16 17:30 (Senokot) 17.2 mg Q12H PRN PO 11/26/16 17:30 (Dulcolax Supp) 10 mg DAILY PRN RECTAL 11/26/16 17:30 (Lactulose Liq) 30 ml DAILY PRN PO 11/26/16 17:30 Pharmacy Profile Note 0 ml @ 0 mls/hr UNSCH OTHER 11/26/16 17:45 (ZyrTEC) 10 mg DAILY PO 11/27/16 09:00 12/27/16 08:56 (Colace) 100 mg Q12H PO 11/26/16 21:00 12/27/16 08:57 (Percocet 5-325 Mg) 1 tab Q4H PRN PO 11/26/16 18:15 12/19/16 05:34 (Effexor Xr) 37.5 mg DAILY PO 11/27/16 09:00 12/27/16 08:56 (Percocet 7.5-325 Mg) 1 tab Q4H PRN PO 11/27/16 12:00 12/27/16 01:45 (Ativan) 0.5 mg Q6H PRN PO 11/28/16 14:00 12/16/16 22:03 (Prinivil) 10 mg DAILY PO 12/01/16 13:30 Future Hold 12/04/16 08:40 Vancomycin HCl 1000 mg/Sodium Chloride 250 ml @ 250 mls/hr Q12H IV 12/21/16 00:00 12/27/16 00:26 (NS Flush) See Protocol DAILY IV FLUSH 12/23/16 09:00 12/27/16 08:57 (NS Flush) See Protocol UNSCH PRN IV FLUSH 12/22/16 14:15 (Heparin Central Flush) See Protocol DAILY IV FLUSH 12/23/16 09:00 12/27/16 08:57 (Heparin Central Flush) See Protocol UNSCH PRN IV FLUSH 12/22/16 14:15 (NS Flush) UNSCH PRN IV FLUSH 12/22/16 14:15 12/26/16 08:19 (Lactinex) 1 tab Q12HR PO 12/24/16 10:15 12/27/16 08:56 A/P Problem List: (1) Amphetamine use disorder, severe, dependence ICD Code: F15.20 - Other stimulant dependence, uncomplicated Status: Acute (2) Abscess in epidural space of lumbar spine ICD Code: G06.1 - Intraspinal abscess and granuloma Status: Acute (3) Osteomyelitis of cervical spine ICD Code: M46.22 - Osteomyelitis of vertebra, cervical region Status: Acute (4) Neck abscess ICD Code: L02.11 - Cutaneous abscess of neck Status: Acute (5) Infectious endocarditis ICD Code: I33.0 - Acute and subacute infective endocarditis Status: Acute (6) Bacteremia ICD Code: R78.81 - Bacteremia Status: Acute (7) Fever ICD Code: R50.9 - Fever, unspecified Status: Resolved (8) IV drug abuse ICD Code: F19.10 - Other psychoactive substance abuse, uncomplicated Status: Chronic (9) Tachycardia ICD Code: R00.0 - Tachycardia, unspecified Status: Acute Assessment and Plan 46-year-old female with a past medical history of IVDA, cervical osteomyelitis, endocarditis, lumbar abscesses who presented with agitation and altered mental status. Acute encephalopathy: On presentation. - likely related to drug overdose. Urine drug screen positive for opiates and amphetamines. - Encephalopathy has since resolved. 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 Source is MRSA bacteremia, cellulitis of left arm, possible ongoing cervical spine osteomyelitis. - Continue IV antibiotics. Appreciate infectious disease recommendations. Blood cultures are positive for MRSA. Repeat BCX shows no growth x 5 days. - TV endocarditis previously for both MRSA and MSSA - 2D echo 11/30 EF 35-40%, vegetation on the posterior leaflet of the tricuspid valve, mild to moderate tricuspid valve regurgitation, mild PHTN. Patient not candidate for PETER 2/2 cervical disease - s/p PICC line placement 12/22/16 - As per ID recommendation vancomycin 4 weeks - tentative stop date January 02. Rifampin discontinued as Ceretec negative. Continue to monitor creatinine - stable. 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 Patient was evaluated by neurosurgery at that time. Continue cervical collar. - Appreciate neurosurgery recommendations. - Patient is not a good surgical candidate at this time due to ongoing IV drug abuse and high infection risk. Still complaining of neck pain, controlled. Tolerating soft collar. - MRI cervical spine 11/29 - Substantial improvement when compared to 08/06/16 substantial decrease in the amount of enhancement. - Ceretec tagged white cell study shows no abnormal white cell accumulation in the cervical spine. 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 MD discussed addiction issue with the patient. She is adamant that she does not abuse her prescriptions medication and reportedly had a relapse with amphetamines. - No changes should be made with her narcotics. Percocet 5/325mg q4hrs, Percocet 7.5mg/325mg q4hrs. Hypertension: - now controlled off of meds - Continue to hold lisinopril - monitor BP DVT prophylaxis: Lovenox. Full code Discussed with patient, Dr. Carreon Discharge Planning Per ID, patient will need 4 weeks of IV abx - tentative stop date January 02. Difficult placement. Patient has been refused acceptance at [facility]. Possible transfer to [place] in the near future. Luna Day Dec 27, 2016 09:17
[2016-12-27 12:29] VITALS: BP 112/65; PULSE 93; RESP 16; TEMP 97.3; O2SAT 98
[2016-12-27 15:41] VITALS: BP 108/52; PULSE 74; RESP 17; TEMP 97.6; O2SAT 95
[2016-12-27 20:41] VITALS: BP 125/60; PULSE 80; RESP 20; TEMP 98; O2SAT 99
[2016-12-27] MEDS: ENOXAPARIN SODIUM 40 MG/0.4 ML SYRINGE SQ SCH (21:27)
[2016-12-28] MEDS: VANCOMYCIN 1,000 MG/NS 250 ML IV SCH ×4 (00:37→12:17)
[2016-12-28 01:08] VITALS: BP 128/71; PULSE 87; RESP 20; TEMP 97.9; O2SAT 97
[2016-12-28] MEDS: oxyCODONE/ACETAMINOPHEN 7.5 MG/325 MG TAB PO PRN ×4 (01:45→22:10)
[2016-12-28 05:16] VITALS: BP 114/60; PULSE 82; RESP 20; TEMP 98.1; O2SAT 94
[2016-12-28 08:30] VITALS: BP 98/53; PULSE 69; RESP 16; TEMP 98.2; O2SAT 97
[2016-12-28] MEDS: CETIRIZINE HCL 10 MG TAB PO SCH (08:34)
[2016-12-28] MEDS: LACTOBACILLUS ACIDOPHILUS TAB PO SCH ×2 (08:34→22:10)
[2016-12-28] MEDS: VENLAFAXINE HCL XR 37.5 MG CAP PO SCH (08:34)
[2016-12-28] MEDS: DOCUSATE SODIUM 100 MG CAP PO SCH ×2 (08:34→22:10)
[2016-12-28] MEDS: SODIUM CHLORIDE 0.9% FLUSH 10 ML FLUSH IV FLUSH SCH ×3 (08:35→22:13)
--- NOTE | 2016-12-28 08:42 | HHI.PR ---
Subjective Remarks Follow-up on patient with endocarditis, cervical spine osteomyelitis, hypertension. Patient seen and examined. Patient asleep but easily awakens to voice. Patient denies any complaints. She denies any fever or chills. Denies any CP or dyspnea. Denies any N/V or abdominal pain. Discussed with nursing staff - no issues over night reported. Objective Vitals Vital Signs Date Time Temp Pulse Resp B/P (MAP) Pulse Ox O2 Delivery O2 Flow Rate FiO2 12/28/16 05:16 98.1 82 20 114/60 (78) 94 12/28/16 01:08 97.9 87 20 128/71 (90) 97 12/27/16 20:41 98.0 80 20 125/60 (81) 99 12/27/16 15:41 97.6 74 17 108/52 (70) 95 12/27/16 12:29 97.3 93 16 112/65 (81) 98 I/O 12/27/16 12/27/16 12/27/16 12/28/16 12/28/16 12/28/16 07:00 15:00 23:00 07:00 15:00 23:00 Intake Total 250 ml 250 ml 254 ml Output Total 5 ml Balance 245 ml 250 ml 254 ml IV Total 250 ml 250 ml 254 ml Output Urine Total 5 ml # Voids 2 Result Diagram: 12/27/16 0604 Imaging Last Impressions Chest X-Ray 12/22/16 0000 Signed Impressions: Service Date/Time: Thursday, December 22, 2016 13:33 - CONCLUSION: 1. Right-sided PICC line tip in good position near the atriocaval junction. 2. No acute abnormality or significant interval change. Dao Oconnor MD Tumor Localization 12/02/16 0000 Signed Impressions: Service Date/Time: Friday, December 02, 2016 16:43 - CONCLUSION: No abnormal white cell accumulation in the cervical spine. Luigi Thomas MD Cervical Spine MRI 11/29/16 0000 Signed Impressions: Service Date/Time: Tuesday, November 29, 2016 16:40 - CONCLUSION: Substantial improvement when compared to 08/06/16 substantial decrease in the amount of enhancement. Ceretec tagged white cell study may be of benefit to exclude residual inflammatory focus. Austin Dang MD FACR Cervical Spine CT 11/28/16 0000 Signed Impressions: Service Date/Time: Tuesday, November 29, 2016 11:22 - CONCLUSION: Stable changes when compared to 09/03/16. Spinal canal still remains adequate. Its difficult to assess the intra-and extradural components. A SPECT tagged white cell study with 3-D reconstructions could offer more information if continued infection is suspected. Austin Dang MD FACR Cervical Spine X-Ray 11/27/16 0000 Signed Impressions: Service Date/Time: October 14:02 - CONCLUSION: 1. Severe kyphosis centered at the C3 level approaching 90 which is mildly increased from the prior study. There is increased deformity of the inferior aspect of C2 with hypertrophic change and or soft tissue calcification. 2. Stable appearing deformity of the C3 vertebral body. 3. 4. Status post remote fusion of the C4- 5 and C6-7 levels. Reginald Michelle MD Objective Remarks GENERAL: This is a well-nourished, well-developed patient, in no apparent distress. Lying in bed asleep, easily awakens to voice. Appears comfortable. Family member in room. Nurse at the bedside. SKIN: Warm and dry. Multiple scab wounds, BUE and BLE track mercado noted. PICC line RUE. HEENT: Normocephalic. Atraumatic. EOMI. Nose without bleeding. Airway patent. MMM. NECK: Trachea midline. Supple. CARDIOVASCULAR: Regular rate and rhythm without murmurs, gallops, or rubs. RESPIRATORY: Clear to auscultation. Breath sounds equal bilaterally. No wheezes , rales, or rhonchi. GASTROINTESTINAL: Abdomen soft, non-tender, nondistended. Bowel Sounds normoactive x4. MUSCULOSKELETAL: Extremities without clubbing, cyanosis, or edema. NEUROLOGICAL: Awake and alert. Moves all extremities spontaneously. Normal speech. Procedures None Medications and IVs Current Medications Medications (Trade) Dose Ordered Sig/Declan Route Start Time Stop Time Status Last Admin (NS Flush) 2 ml UNSCH PRN IV FLUSH 11/26/16 17:30 12/08/16 21:31 (NS Flush) 2 ml BID IV FLUSH 11/26/16 21:00 12/27/16 21:28 (Tylenol) 650 mg Q4H PRN PO 11/26/16 17:30 (Lovenox Inj) 40 mg Q24H SQ 11/26/16 20:00 12/27/16 21:27 (Narcan Inj) 0.4 mg UNSCH PRN IV 11/26/16 17:30 (Milk Of Magnesia Liq) 30 ml Q12H PRN PO 11/26/16 17:30 (Senokot) 17.2 mg Q12H PRN PO 11/26/16 17:30 (Dulcolax Supp) 10 mg DAILY PRN RECTAL 11/26/16 17:30 (Lactulose Liq) 30 ml DAILY PRN PO 11/26/16 17:30 Pharmacy Profile Note 0 ml @ 0 mls/hr UNSCH OTHER 11/26/16 17:45 (ZyrTEC) 10 mg DAILY PO 11/27/16 09:00 12/27/16 08:56 (Colace) 100 mg Q12H PO 11/26/16 21:00 12/27/16 21:27 (Percocet 5-325 Mg) 1 tab Q4H PRN PO 11/26/16 18:15 12/19/16 05:34 (Effexor Xr) 37.5 mg DAILY PO 11/27/16 09:00 12/27/16 08:56 (Percocet 7.5-325 Mg) 1 tab Q4H PRN PO 11/27/16 12:00 12/28/16 01:45 (Ativan) 0.5 mg Q6H PRN PO 11/28/16 14:00 12/16/16 22:03 (Prinivil) 10 mg DAILY PO 12/01/16 13:30 Future Hold 12/04/16 08:40 Vancomycin HCl 1000 mg/Sodium Chloride 250 ml @ 250 mls/hr Q12H IV 12/21/16 00:00 12/28/16 00:37 (NS Flush) See Protocol DAILY IV FLUSH 12/23/16 09:00 12/27/16 08:57 (NS Flush) See Protocol UNSCH PRN IV FLUSH 12/22/16 14:15 (Heparin Central Flush) See Protocol DAILY IV FLUSH 12/23/16 09:00 12/27/16 08:57 (Heparin Central Flush) See Protocol UNSCH PRN IV FLUSH 12/22/16 14:15 (NS Flush) UNSCH PRN IV FLUSH 12/22/16 14:15 12/26/16 08:19 (Lactinex) 1 tab Q12HR PO 12/24/16 10:15 12/27/16 21:27 A/P Problem List: (1) Amphetamine use disorder, severe, dependence ICD Code: F15.20 - Other stimulant dependence, uncomplicated Status: Acute (2) Abscess in epidural space of lumbar spine ICD Code: G06.1 - Intraspinal abscess and granuloma Status: Acute (3) Osteomyelitis of cervical spine ICD Code: M46.22 - Osteomyelitis of vertebra, cervical region Status: Acute (4) Neck abscess ICD Code: L02.11 - Cutaneous abscess of neck Status: Acute (5) Infectious endocarditis ICD Code: I33.0 - Acute and subacute infective endocarditis Status: Acute (6) Bacteremia ICD Code: R78.81 - Bacteremia Status: Acute (7) Fever ICD Code: R50.9 - Fever, unspecified Status: Resolved (8) IV drug abuse ICD Code: F19.10 - Other psychoactive substance abuse, uncomplicated Status: Chronic (9) Tachycardia ICD Code: R00.0 - Tachycardia, unspecified Status: Acute Assessment and Plan 46-year-old female with a past medical history of IVDA, cervical osteomyelitis, endocarditis, lumbar abscesses who presented with agitation and altered mental status. Acute encephalopathy: On presentation. - likely related to drug overdose. Urine drug screen positive for opiates and amphetamines. - Encephalopathy has since resolved. 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 Source is MRSA bacteremia, cellulitis of left arm, possible ongoing cervical spine osteomyelitis. - Continue IV antibiotics. Appreciate infectious disease recommendations. Blood cultures are positive for MRSA. Repeat BCX shows no growth x 5 days. - TV endocarditis previously for both MRSA and MSSA - 2D echo 11/30 EF 35-40%, vegetation on the posterior leaflet of the tricuspid valve, mild to moderate tricuspid valve regurgitation, mild PHTN. Patient not candidate for PETER 2/2 cervical disease - s/p PICC line placement 12/22/16 - As per ID recommendation vancomycin 4 weeks - tentative stop date January 02. Rifampin discontinued as Ceretec negative. Continue to monitor creatinine - stable. 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 Patient was evaluated by neurosurgery at that time. Continue cervical collar. - Appreciate neurosurgery recommendations. - Patient is not a good surgical candidate at this time due to ongoing IV drug abuse and high infection risk. Still complaining of neck pain, controlled. Tolerating soft collar. - MRI cervical spine 11/29 - Substantial improvement when compared to 08/06/16 substantial decrease in the amount of enhancement. - Ceretec tagged white cell study shows no abnormal white cell accumulation in the cervical spine. 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 discussed addiction issue with the patient. She is adamant that she does not abuse her prescriptions medication and reportedly had a relapse with amphetamines. - No changes should be made with her narcotics. Percocet 5/325mg q4hrs, Percocet 7.5mg/325mg q4hrs. Hypertension: - now controlled off of meds - Continue to hold lisinopril - monitor BP DVT prophylaxis: Lovenox. Full code Discussed with patient, Dr. Carreon Discharge Planning Per ID, patient will need 4 weeks of IV abx - tentative stop date January 02. Difficult placement. Patient has been refused acceptance at [facility]. Possible transfer to [facility] in the near future. Luna Day Dec 28, 2016 08:42
[2016-12-28] MEDS ORDERED: PHARMACY ORDERED LAB ONE (11:45)
[2016-12-28 12:12] VITALS: BP 131/72; PULSE 79; RESP 16; TEMP 98.4; O2SAT 96
[2016-12-28 16:18] VITALS: BP 108/58; PULSE 84; RESP 17; TEMP 97.4; O2SAT 99
[2016-12-28 20:00] VITALS: BP 119/73; PULSE 100; RESP 20; TEMP 98.2; O2SAT 98
[2016-12-28] MEDS: ENOXAPARIN SODIUM 40 MG/0.4 ML SYRINGE SQ SCH (22:12)
[2016-12-29] VITALS: BP 129/60; PULSE 83; RESP 18; TEMP 97.5; O2SAT 98
[2016-12-29] MEDS: VANCOMYCIN 1,000 MG/NS 250 ML IV SCH ×4 (00:37→13:15)
[2016-12-29 05:00] VITALS: BP 94/54; PULSE 74; RESP 18; TEMP 97.8; O2SAT 95
[2016-12-29 08:00] VITALS: BP 108/58; PULSE 74; RESP 19; TEMP 98.4; O2SAT 96
[2016-12-29] MEDS: SODIUM CHLORIDE 0.9% FLUSH 10 ML FLUSH IV FLUSH SCH ×2 (09:00→21:00)
[2016-12-29] MEDS: DOCUSATE SODIUM 100 MG CAP PO SCH ×2 (09:00→22:01)
[2016-12-29] MEDS: LACTOBACILLUS ACIDOPHILUS TAB PO SCH ×2 (09:28→22:01)
[2016-12-29] MEDS: VENLAFAXINE HCL XR 37.5 MG CAP PO SCH (09:28)
[2016-12-29] MEDS: CETIRIZINE HCL 10 MG TAB PO SCH (09:29)
--- NOTE | 2016-12-29 11:21 | HHI.PR ---
Subjective Remarks Follow-up on patient with endocarditis, cervical spine osteomyelitis, hypertension. Patient seen and examined. Patient seen at 10am. Sleeping but awakens easily to voice. Patient appears groggy. States she is bored. Denies any acute medical complaints. Denies any fever or chills. Denies any N/V, abdominal pain or diarrhea. Denies any chest pain or dyspnea. Denies any urinary complaints. Objective Vitals Vital Signs Date Time Temp Pulse Resp B/P (MAP) Pulse Ox O2 Delivery O2 Flow Rate FiO2 12/29/16 08:00 98.4 74 19 108/58 (75) 96 12/29/16 05:00 97.8 74 18 94/54 (67) 95 12/29/16 00:00 97.5 83 18 129/60 (83) 98 12/28/16 20:00 98.2 100 20 119/73 (88) 98 12/28/16 16:18 97.4 84 17 108/58 (75) 99 12/28/16 12:12 98.4 79 16 131/72 (91) 96 I/O 12/28/16 12/28/16 12/28/16 12/29/16 12/29/16 12/29/16 07:00 15:00 23:00 07:00 15:00 23:00 Intake Total 254 ml 720 ml Balance 254 ml 720 ml Intake Oral 720 ml IV Total 254 ml # Voids 2 2 3 # Bowel Movements 1 1 Result Diagram: 12/29/16 0505 Imaging Last Impressions Chest X-Ray 12/22/16 0000 Signed Impressions: Service Date/Time: Thursday, December 22, 2016 13:33 - CONCLUSION: 1. Right-sided PICC line tip in good position near the atriocaval junction. 2. No acute abnormality or significant interval change. Dao Oconnor MD Tumor Localization 12/02/16 0000 Signed Impressions: Service Date/Time: Friday, December 02, 2016 16:43 - CONCLUSION: No abnormal white cell accumulation in the cervical spine. Luigi Thomas MD Cervical Spine MRI 11/29/16 0000 Signed Impressions: Service Date/Time: Tuesday, November 29, 2016 16:40 - CONCLUSION: Substantial improvement when compared to 08/06/16 substantial decrease in the amount of enhancement. Ceretec tagged white cell study may be of benefit to exclude residual inflammatory focus. Austin Dang MD FACR Cervical Spine CT 11/28/16 0000 Signed Impressions: Service Date/Time: Tuesday, November 29, 2016 11:22 - CONCLUSION: Stable changes when compared to 09/03/16. Spinal canal still remains adequate. Its difficult to assess the intra-and extradural components. A SPECT tagged white cell study with 3-D reconstructions could offer more information if continued infection is suspected. Austin Dang MD FACR Cervical Spine X-Ray 11/27/16 0000 Signed Impressions: Service Date/Time: October 14:02 - CONCLUSION: 1. Severe kyphosis centered at the C3 level approaching 90 which is mildly increased from the prior study. There is increased deformity of the inferior aspect of C2 with hypertrophic change and or soft tissue calcification. 2. Stable appearing deformity of the C3 vertebral body. 3. 4. Status post remote fusion of the C4- 5 and C6-7 levels. Reginald Michelle MD Objective Remarks GENERAL: This is a well-nourished, well-developed patient, in no apparent distress. Lying in bed asleep, easily awakens to voice. Somnolent. Family member in room. SKIN: Warm and dry. Multiple scab wounds, BUE and BLE track mercado noted. PICC line RUE. HEENT: Normocephalic. Atraumatic. EOMI. Nose without bleeding. Airway patent. MMM. NECK: Trachea midline. Supple. CARDIOVASCULAR: Regular rate and rhythm without murmurs, gallops, or rubs. RESPIRATORY: Clear to auscultation. Breath sounds equal bilaterally. No wheezes , rales, or rhonchi. GASTROINTESTINAL: Abdomen soft, non-tender, nondistended. Bowel Sounds normoactive x4. MUSCULOSKELETAL: Extremities without clubbing, cyanosis, or edema. NEUROLOGICAL: Awake and alert. Moves all extremities spontaneously. Normal speech. Procedures None Medications and IVs Current Medications Medications (Trade) Dose Ordered Sig/Declan Route Start Time Stop Time Status Last Admin (NS Flush) 2 ml UNSCH PRN IV FLUSH 11/26/16 17:30 12/08/16 21:31 (NS Flush) 2 ml BID IV FLUSH 11/26/16 21:00 12/28/16 22:13 (Tylenol) 650 mg Q4H PRN PO 11/26/16 17:30 (Lovenox Inj) 40 mg Q24H SQ 11/26/16 20:00 12/28/16 22:12 (Narcan Inj) 0.4 mg UNSCH PRN IV 11/26/16 17:30 (Milk Of Magnesia Liq) 30 ml Q12H PRN PO 11/26/16 17:30 (Senokot) 17.2 mg Q12H PRN PO 11/26/16 17:30 (Dulcolax Supp) 10 mg DAILY PRN RECTAL 11/26/16 17:30 (Lactulose Liq) 30 ml DAILY PRN PO 11/26/16 17:30 Pharmacy Profile Note 0 ml @ 0 mls/hr UNSCH OTHER 11/26/16 17:45 (ZyrTEC) 10 mg DAILY PO 11/27/16 09:00 12/29/16 09:29 (Colace) 100 mg Q12H PO 11/26/16 21:00 12/29/16 09:00 (Percocet 5-325 Mg) 1 tab Q4H PRN PO 11/26/16 18:15 12/19/16 05:34 (Effexor Xr) 37.5 mg DAILY PO 11/27/16 09:00 12/29/16 09:28 (Percocet 7.5-325 Mg) 1 tab Q4H PRN PO 11/27/16 12:00 12/28/16 22:10 (Ativan) 0.5 mg Q6H PRN PO 11/28/16 14:00 12/16/16 22:03 (Prinivil) 10 mg DAILY PO 12/01/16 13:30 Future Hold 12/04/16 08:40 Vancomycin HCl 1000 mg/Sodium Chloride 250 ml @ 250 mls/hr Q12H IV 12/21/16 00:00 12/29/16 00:37 (NS Flush) See Protocol DAILY IV FLUSH 12/23/16 09:00 12/27/16 08:57 (NS Flush) See Protocol UNSCH PRN IV FLUSH 12/22/16 14:15 (Heparin Central Flush) See Protocol DAILY IV FLUSH 12/23/16 09:00 12/29/16 09:30 (Heparin Central Flush) See Protocol UNSCH PRN IV FLUSH 12/22/16 14:15 (NS Flush) UNSCH PRN IV FLUSH 12/22/16 14:15 12/26/16 08:19 (Lactinex) 1 tab Q12HR PO 12/24/16 10:15 12/29/16 09:28 A/P Problem List: (1) Amphetamine use disorder, severe, dependence ICD Code: F15.20 - Other stimulant dependence, uncomplicated Status: Acute (2) Abscess in epidural space of lumbar spine ICD Code: G06.1 - Intraspinal abscess and granuloma Status: Acute (3) Osteomyelitis of cervical spine ICD Code: M46.22 - Osteomyelitis of vertebra, cervical region Status: Acute (4) Neck abscess ICD Code: L02.11 - Cutaneous abscess of neck Status: Acute (5) Infectious endocarditis ICD Code: I33.0 - Acute and subacute infective endocarditis Status: Acute (6) Bacteremia ICD Code: R78.81 - Bacteremia Status: Acute (7) Fever ICD Code: R50.9 - Fever, unspecified Status: Resolved (8) IV drug abuse ICD Code: F19.10 - Other psychoactive substance abuse, uncomplicated Status: Chronic (9) Tachycardia ICD Code: R00.0 - Tachycardia, unspecified Status: Acute Assessment and Plan 46-year-old female with a past medical history of IVDA, cervical osteomyelitis, endocarditis, lumbar abscesses who presented with agitation and altered mental status. Acute encephalopathy: On presentation. - likely related to drug overdose. Urine drug screen positive for opiates and amphetamines. - Encephalopathy has since resolved. - appears somnolent, likely due to just being woken up prior to exam. Check random UDS. 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 Source is MRSA bacteremia, cellulitis of left arm, possible ongoing cervical spine osteomyelitis. - Continue IV antibiotics. Appreciate infectious disease recommendations. Blood cultures are positive for MRSA. Repeat BCX shows no growth x 5 days. - TV endocarditis previously for both MRSA and MSSA - 2D echo 11/30 EF 35-40%, vegetation on the posterior leaflet of the tricuspid valve, mild to moderate tricuspid valve regurgitation, mild PHTN. Patient not candidate for PETER 2/2 cervical disease - s/p PICC line placement 12/22/16 - As per ID recommendation vancomycin 4 weeks - tentative stop date January 02. Rifampin discontinued as Ceretec negative. Continue to monitor creatinine - remains stable. 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 Patient was evaluated by neurosurgery at that time. Continue cervical collar. - Appreciate neurosurgery recommendations. - Patient is not a good surgical candidate at this time due to ongoing IV drug abuse and high infection risk. Still complaining of neck pain, controlled. Tolerating soft collar. - MRI cervical spine 11/29 - Substantial improvement when compared to 08/06/16 substantial decrease in the amount of enhancement. - Ceretec tagged white cell study shows no abnormal white cell accumulation in the cervical spine. 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 MD discussed addiction issue with the patient. She is adamant that she does not abuse her prescriptions medication and reportedly had a relapse with amphetamines. - No changes should be made with her narcotics. Percocet 5/325mg q4hrs, Percocet 7.5mg/325mg q4hrs. 12/29 patient appears to be more somnolent. Decrease dose of pain medications to Percocet 5/325mg po q4h prn only. Hypertension: - controlled off of meds - Continue to hold lisinopril - monitor BP DVT prophylaxis: Lovenox. Full code Discussed with patient, Dr. Angulo Discharge Planning Per ID, patient will need 4 weeks of IV abx - tentative stop date January 02. Difficult placement. Patient has been refused acceptance at [facility]. Possible transfer to [facility] in the near future. Luna Day Dec 29, 2016 11:21
[2016-12-29 12:00] VITALS: BP 131/75; PULSE 84; RESP 19; TEMP 98.7; O2SAT 96
[2016-12-29] MEDS: oxyCODONE/ACETAMINOPHEN 5 MG/325 MG TAB PO PRN ×3 (13:14→22:02)
[2016-12-29 16:00] VITALS: BP 108/64; PULSE 85; RESP 19; TEMP 97.6; O2SAT 98
[2016-12-29 21:52] VITALS: BP 120/70; PULSE 97; RESP 20; TEMP 98.6; O2SAT 100
[2016-12-29] MEDS: ENOXAPARIN SODIUM 40 MG/0.4 ML SYRINGE SQ SCH (22:01)
[2016-12-30] MEDS: VANCOMYCIN 1,000 MG/NS 250 ML IV SCH ×4 (01:03→12:58)
[2016-12-30 01:44] VITALS: BP 114/59; PULSE 87; RESP 20; TEMP 98.3; O2SAT 95
[2016-12-30 06:25] VITALS: BP 125/58; PULSE 74; RESP 20; TEMP 97.9; O2SAT 96
[2016-12-30 08:00] VITALS: BP 126/66; PULSE 76; RESP 18; TEMP 98.1; O2SAT 96
[2016-12-30] MEDS: VENLAFAXINE HCL XR 37.5 MG CAP PO SCH (09:00)
[2016-12-30] MEDS: DOCUSATE SODIUM 100 MG CAP PO SCH ×2 (09:00→22:32)
[2016-12-30] MEDS: CETIRIZINE HCL 10 MG TAB PO SCH (09:00)
[2016-12-30] MEDS: LACTOBACILLUS ACIDOPHILUS TAB PO SCH ×2 (09:00→22:32)
[2016-12-30] MEDS: oxyCODONE/ACETAMINOPHEN 5 MG/325 MG TAB PO PRN ×3 (11:21→22:31)
[2016-12-30 12:00] VITALS: BP 110/58; PULSE 78; RESP 18; TEMP 98.5; O2SAT 97
[2016-12-30 16:00] VITALS: BP 105/60; PULSE 97; RESP 18; TEMP 97.3; O2SAT 100
--- NOTE | 2016-12-30 17:18 | HHI.PR ---
Subjective Remarks Follow-up on patient with endocarditis, cervical spine osteomyelitis, hypertension. Patient seen and examined. Reported feeling "ok" and hoping to be discharged later in the week. Reported disappointment at her insurance not being accepted at [facility] addiction program. She noted she is continuing to look for treatment programs. Denied any acute medical complaints. Denied fever, chills, N/V/D, abdominal/chest pain, shortness of breath, bowel or bladder issues. Per RN no acute issues noted or reported over night or since start of shift. Objective Vitals Vital Signs Date Time Temp Pulse Resp B/P (MAP) Pulse Ox O2 Delivery O2 Flow Rate FiO2 12/30/16 08:00 98.1 76 18 126/66 (86) 96 12/30/16 06:25 97.9 74 20 125/58 (80) 96 12/30/16 01:44 98.3 87 20 114/59 (77) 95 12/29/16 21:52 98.6 97 20 120/70 (87) 100 I/O 12/29/16 12/29/16 12/29/16 12/30/16 12/30/16 12/30/16 07:00 15:00 23:00 07:00 15:00 23:00 Intake Total 250 ml Balance 250 ml IV Total 250 ml # Voids 3 3 Result Diagram: 12/29/16 0505 Imaging Last Impressions Chest X-Ray 12/22/16 0000 Signed Impressions: Service Date/Time: Thursday, December 22, 2016 13:33 - CONCLUSION: 1. Right-sided PICC line tip in good position near the atriocaval junction. 2. No acute abnormality or significant interval change. Dao Oconnor MD Tumor Localization 12/02/16 0000 Signed Impressions: Service Date/Time: Friday, December 02, 2016 16:43 - CONCLUSION: No abnormal white cell accumulation in the cervical spine. Luigi Thomas MD Cervical Spine MRI 11/29/16 0000 Signed Impressions: Service Date/Time: Tuesday, November 29, 2016 16:40 - CONCLUSION: Substantial improvement when compared to 08/06/16 substantial decrease in the amount of enhancement. Ceretec tagged white cell study may be of benefit to exclude residual inflammatory focus. Austin Dang MD FACR Cervical Spine CT 11/28/16 0000 Signed Impressions: Service Date/Time: Tuesday, November 29, 2016 11:22 - CONCLUSION: Stable changes when compared to 09/03/16. Spinal canal still remains adequate. Its difficult to assess the intra-and extradural components. A SPECT tagged white cell study with 3-D reconstructions could offer more information if continued infection is suspected. Austin Dang MD FACR Cervical Spine X-Ray 11/27/16 0000 Signed Impressions: Service Date/Time: October 14:02 - CONCLUSION: 1. Severe kyphosis centered at the C3 level approaching 90 which is mildly increased from the prior study. There is increased deformity of the inferior aspect of C2 with hypertrophic change and or soft tissue calcification. 2. Stable appearing deformity of the C3 vertebral body. 3. 4. Status post remote fusion of the C4- 5 and C6-7 levels. Reginald Michelle MD Objective Remarks GENERAL: Pt encountered standing/waling about room. NAD. SKIN: Warm and dry. HEAD: Normocephalic. EYES: No scleral icterus. No injection or drainage. NECK: Supple, trachea midline. CARDIOVASCULAR: Regular rate and rhythm without murmurs, gallops, or rubs. RESPIRATORY: Breath sounds equal bilaterally. No accessory muscle use. GASTROINTESTINAL: Abdomen soft, non-tender, nondistended. MUSCULOSKELETAL: No cyanosis, or edema. Pt wearing cervical collar. PSYCHIATRIC: Mood and affect bright. Insight and judgment adequate. Pt was pleasant and cooperative. Speech was clear and fluent. Procedures None Medications and IVs Current Medications Medications (Trade) Dose Ordered Sig/Declan Route Start Time Stop Time Status Last Admin (NS Flush) 2 ml UNSCH PRN IV FLUSH 11/26/16 17:30 12/08/16 21:31 (NS Flush) 2 ml BID IV FLUSH 11/26/16 21:00 12/29/16 21:00 (Tylenol) 650 mg Q4H PRN PO 11/26/16 17:30 (Lovenox Inj) 40 mg Q24H SQ 11/26/16 20:00 12/29/16 22:01 (Narcan Inj) 0.4 mg UNSCH PRN IV 11/26/16 17:30 (Milk Of Magnesia Liq) 30 ml Q12H PRN PO 11/26/16 17:30 (Senokot) 17.2 mg Q12H PRN PO 11/26/16 17:30 (Dulcolax Supp) 10 mg DAILY PRN RECTAL 11/26/16 17:30 (Lactulose Liq) 30 ml DAILY PRN PO 11/26/16 17:30 Pharmacy Profile Note 0 ml @ 0 mls/hr UNSCH OTHER 11/26/16 17:45 (ZyrTEC) 10 mg DAILY PO 11/27/16 09:00 12/30/16 09:00 (Colace) 100 mg Q12H PO 11/26/16 21:00 12/30/16 09:00 (Percocet 5-325 Mg) 1 tab Q4H PRN PO 11/26/16 18:15 12/30/16 16:55 (Effexor Xr) 37.5 mg DAILY PO 11/27/16 09:00 12/30/16 09:00 (Ativan) 0.5 mg Q6H PRN PO 11/28/16 14:00 12/16/16 22:03 (Prinivil) 10 mg DAILY PO 12/01/16 13:30 Future Hold 12/04/16 08:40 Vancomycin HCl 1000 mg/Sodium Chloride 250 ml @ 250 mls/hr Q12H IV 12/21/16 00:00 12/30/16 12:58 (NS Flush) See Protocol DAILY IV FLUSH 12/23/16 09:00 12/29/16 09:00 (NS Flush) See Protocol UNSCH PRN IV FLUSH 12/22/16 14:15 (Heparin Central Flush) See Protocol DAILY IV FLUSH 12/23/16 09:00 12/30/16 09:00 (Heparin Central Flush) See Protocol UNSCH PRN IV FLUSH 12/22/16 14:15 (NS Flush) UNSCH PRN IV FLUSH 12/22/16 14:15 12/26/16 08:19 (Lactinex) 1 tab Q12HR PO 12/24/16 10:15 12/30/16 09:00 A/P Problem List: (1) Amphetamine use disorder, severe, dependence ICD Code: F15.20 - Other stimulant dependence, uncomplicated Status: Acute (2) Abscess in epidural space of lumbar spine ICD Code: G06.1 - Intraspinal abscess and granuloma Status: Acute (3) Osteomyelitis of cervical spine ICD Code: M46.22 - Osteomyelitis of vertebra, cervical region Status: Acute (4) Neck abscess ICD Code: L02.11 - Cutaneous abscess of neck Status: Acute (5) Infectious endocarditis ICD Code: I33.0 - Acute and subacute infective endocarditis Status: Acute (6) Bacteremia ICD Code: R78.81 - Bacteremia Status: Acute (7) Fever ICD Code: R50.9 - Fever, unspecified Status: Resolved (8) IV drug abuse ICD Code: F19.10 - Other psychoactive substance abuse, uncomplicated Status: Chronic (9) Tachycardia ICD Code: R00.0 - Tachycardia, unspecified Status: Acute Assessment and Plan [id number] female with a past medical history of IVDA, cervical osteomyelitis , endocarditis, lumbar abscesses who presented with agitation and altered mental status. IVDU: Pt seeking treatment options. Depression/Anxiety: Controlled with Effexor ; continue current dosage. Hypertension: Stable. Endocarditis: IV antibiotics continue. Consider follow-up echocardiogram. Acute encephalopathy: On presentation. - likely related to drug overdose. Urine drug screen positive for opiates and amphetamines. - Encephalopathy has since resolved. - appears somnolent, likely due to just being woken up prior to exam. Check random UDS. 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 Source is MRSA bacteremia, cellulitis of left arm, possible ongoing cervical spine osteomyelitis. - Continue IV antibiotics. Appreciate infectious disease recommendations. Blood cultures are positive for MRSA. Repeat BCX shows no growth x 5 days. - TV endocarditis previously for both MRSA and MSSA - 2D echo 11/30 EF 35-40%, vegetation on the posterior leaflet of the tricuspid valve, mild to moderate tricuspid valve regurgitation, mild PHTN. Patient not candidate for PETER 2/2 cervical disease - s/p PICC line placement 12/22/16 - As per ID recommendation vancomycin 4 weeks - tentative stop date January 02. Rifampin discontinued as Ceretec negative. Continue to monitor creatinine - remains stable. - Per ID, patient can be placed in group home to complete treatment - continue lactobacillus - patient remains afebrile Cervical spine osteomyelitis: Diagnosed July 2016. Patient was evaluated by neurosurgery at that time. Continue cervical collar. - Appreciate neurosurgery recommendations. - Patient is not a good surgical candidate at this time due to ongoing IV drug abuse and high infection risk. Still complaining of neck pain, controlled. Tolerating soft collar. - MRI cervical spine 11/29 - Substantial improvement when compared to 08/06/16 substantial decrease in the amount of enhancement. - Ceretec tagged white cell study shows no abnormal white cell accumulation in the cervical spine. RUE weakness/weak right firer retort strength - likely secondary to above - improving per patient report - no complaints of cervical radiculopathy - OT signed off, patient independent with exercises Chronic pain: She is an IV drug user. discussed addiction issue with the patient. She is adamant that she does not abuse her prescriptions medication and reportedly had a relapse with amphetamines. - No changes should be made with her narcotics. Percocet 5/325mg q4hrs, Percocet 7.5mg/325mg q4hrs. 12/29 patient appears to be more somnolent. Decrease dose of pain medications to Percocet 5/325mg po q4h prn only. Hypertension: - controlled off of meds - Continue to hold lisinopril - monitor BP DVT prophylaxis: Lovenox. Full code Discussed with patient,RN, and Dr. Angulo Discharge Planning Difficult discharge. CM assisting. Discussed with CM pt's desire to enter drug rehab after [place] [facility] [place] CM noted she would present information and phone number to pt to contact the [facility]. Chema Price Jr. Dec 30, 2016 17:17
[2016-12-30 20:00] VITALS: BP 163/79; PULSE 105; RESP 18; TEMP 98; O2SAT 95
[2016-12-30] MEDS: SODIUM CHLORIDE 0.9% FLUSH 10 ML FLUSH IV FLUSH SCH (22:33)
[2016-12-30] MEDS: ENOXAPARIN SODIUM 40 MG/0.4 ML SYRINGE SQ SCH (22:33)
[2016-12-31] VITALS: BP 103/56; PULSE 88; RESP 18; TEMP 97.7; O2SAT 96
[2016-12-31] MEDS: VANCOMYCIN 1,000 MG/NS 250 ML IV SCH ×4 (00:36→13:08)
[2016-12-31 04:00] VITALS: BP 110/56; PULSE 61; RESP 18; TEMP 97.4; O2SAT 97
[2016-12-31 08:40] VITALS: BP 130/73; PULSE 70; RESP 16; TEMP 98.2; O2SAT 97
[2016-12-31] MEDS: SODIUM CHLORIDE 0.9% FLUSH 10 ML FLUSH IV FLUSH SCH ×4 (09:00→20:12)
[2016-12-31] MEDS: VENLAFAXINE HCL XR 37.5 MG CAP PO SCH (09:07)
[2016-12-31] MEDS: CETIRIZINE HCL 10 MG TAB PO SCH (09:07)
[2016-12-31] MEDS: DOCUSATE SODIUM 100 MG CAP PO SCH ×2 (09:07→20:11)
[2016-12-31] MEDS: LACTOBACILLUS ACIDOPHILUS TAB PO SCH ×2 (09:07→20:11)
[2016-12-31] MEDS: oxyCODONE/ACETAMINOPHEN 5 MG/325 MG TAB PO PRN ×3 (12:08→21:23)
[2016-12-31 12:18] VITALS: BP 136/72; PULSE 86; RESP 18; TEMP 98; O2SAT 100
--- NOTE | 2016-12-31 16:05 | HHI.PR ---
Subjective Remarks Follow-up on patient with endocarditis, cervical spine osteomyelitis, hypertension. Patient seen and examined. Reported feeling sleepy this morning and wanted "to go back to sleep." Pt noted she had reinserted nose piercing (left naris) Denied any acute medical complaints. Denied fever, chills, N/V/D, abdominal/chest pain, shortness of breath, bowel or bladder issues. Per RN (Nereyda) no acute issues noted or reported over night or since start of shift. Briefly discussed with Dr. Carlos (ID) who said she will see pt later in the week. Objective Vitals Vital Signs Date Time Temp Pulse Resp B/P (MAP) Pulse Ox O2 Delivery O2 Flow Rate FiO2 12/31/16 12:18 98.0 86 18 136/72 (93) 100 12/31/16 08:40 98.2 70 16 130/73 (92) 97 12/31/16 04:00 97.4 61 18 110/56 (74) 97 12/31/16 00:00 97.7 88 18 103/56 (72) 96 12/30/16 20:00 98.0 105 18 163/79 (107) 95 12/30/16 16:00 97.3 97 18 105/60 (75) 100 I/O 12/30/16 12/30/16 12/30/16 12/31/16 12/31/16 12/31/16 07:00 15:00 23:00 07:00 15:00 23:00 Intake Total 900 ml Balance 900 ml Intake Oral 900 ml # Voids 3 4 Result Diagram: 12/31/16 0630 Objective Remarks GENERAL: Pt encountered sleeping, participated minimally in exam, NAD. SKIN: Warm and dry. Nasal piercing of left naris noted HEAD: Normocephalic. EYES: No scleral icterus. No injection or drainage. NECK: Supple, trachea midline. CARDIOVASCULAR: Regular rate and rhythm without murmurs, gallops, or rubs. RESPIRATORY: Breath sounds equal bilaterally. No accessory muscle use. GASTROINTESTINAL: Abdomen soft, non-tender, nondistended. MUSCULOSKELETAL: No cyanosis, or edema. PSYCHIATRIC: Mood and affect not evaluated due to pt wanting to sleep. Insight and judgment unable to assess. Procedures None Medications and IVs Current Medications Medications (Trade) Dose Ordered Sig/Declan Route Start Time Stop Time Status Last Admin (NS Flush) 2 ml UNSCH PRN IV FLUSH 11/26/16 17:30 12/08/16 21:31 (NS Flush) 2 ml BID IV FLUSH 11/26/16 21:00 12/31/16 09:09 (Tylenol) 650 mg Q4H PRN PO 11/26/16 17:30 (Lovenox Inj) 40 mg Q24H SQ 11/26/16 20:00 12/30/16 22:33 (Narcan Inj) 0.4 mg UNSCH PRN IV 11/26/16 17:30 (Milk Of Magnesia Liq) 30 ml Q12H PRN PO 11/26/16 17:30 (Senokot) 17.2 mg Q12H PRN PO 11/26/16 17:30 (Dulcolax Supp) 10 mg DAILY PRN RECTAL 11/26/16 17:30 (Lactulose Liq) 30 ml DAILY PRN PO 11/26/16 17:30 Pharmacy Profile Note 0 ml @ 0 mls/hr UNSCH OTHER 11/26/16 17:45 (ZyrTEC) 10 mg DAILY PO 11/27/16 09:00 12/31/16 09:07 (Colace) 100 mg Q12H PO 11/26/16 21:00 12/31/16 09:07 (Percocet 5-325 Mg) 1 tab Q4H PRN PO 11/26/16 18:15 12/31/16 12:08 (Effexor Xr) 37.5 mg DAILY PO 11/27/16 09:00 12/31/16 09:07 (Ativan) 0.5 mg Q6H PRN PO 11/28/16 14:00 12/16/16 22:03 (Prinivil) 10 mg DAILY PO 12/01/16 13:30 Future Hold 12/04/16 08:40 Vancomycin HCl 1000 mg/Sodium Chloride 250 ml @ 250 mls/hr Q12H IV 12/21/16 00:00 12/31/16 13:08 (NS Flush) See Protocol DAILY IV FLUSH 12/23/16 09:00 12/31/16 09:00 (NS Flush) See Protocol UNSCH PRN IV FLUSH 12/22/16 14:15 (Heparin Central Flush) See Protocol DAILY IV FLUSH 12/23/16 09:00 12/31/16 09:08 (Heparin Central Flush) See Protocol UNSCH PRN IV FLUSH 12/22/16 14:15 (NS Flush) UNSCH PRN IV FLUSH 12/22/16 14:15 12/26/16 08:19 (Lactinex) 1 tab Q12HR PO 12/24/16 10:15 12/31/16 09:07 Urinary Catheter: No A/P Problem List: (1) Amphetamine use disorder, severe, dependence ICD Code: F15.20 - Other stimulant dependence, uncomplicated Status: Acute (2) Abscess in epidural space of lumbar spine ICD Code: G06.1 - Intraspinal abscess and granuloma Status: Acute (3) Osteomyelitis of cervical spine ICD Code: M46.22 - Osteomyelitis of vertebra, cervical region Status: Acute (4) Neck abscess ICD Code: L02.11 - Cutaneous abscess of neck Status: Acute (5) Infectious endocarditis ICD Code: I33.0 - Acute and subacute infective endocarditis Status: Acute (6) Bacteremia ICD Code: R78.81 - Bacteremia Status: Acute (7) Fever ICD Code: R50.9 - Fever, unspecified Status: Resolved (8) IV drug abuse ICD Code: F19.10 - Other psychoactive substance abuse, uncomplicated Status: Chronic (9) Tachycardia ICD Code: R00.0 - Tachycardia, unspecified Status: Acute Assessment and Plan [id number] female with a past medical history of IVDA, cervical osteomyelitis , endocarditis, lumbar abscesses who presented with agitation and altered mental status. IVDU: Pt continuing to seeking treatment options Hypertension: Stable. Endocarditis: IV antibiotics continue. Acute encephalopathy: On presentation. - likely related to drug overdose. Urine drug screen positive for opiates and amphetamines. - Encephalopathy has since resolved. - appears somnolent, likely due to just being woken up prior to exam. Check random UDS. 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 Source is MRSA bacteremia, cellulitis of left arm, possible ongoing cervical spine osteomyelitis. - Continue IV antibiotics. Appreciate infectious disease recommendations. Blood cultures are positive for MRSA. Repeat BCX shows no growth x 5 days. - TV endocarditis previously for both MRSA and MSSA - 2D echo 11/30 EF 35-40%, vegetation on the posterior leaflet of the tricuspid valve, mild to moderate tricuspid valve regurgitation, mild PHTN. Patient not candidate for PETER 2/2 cervical disease - s/p PICC line placement 12/22/16 - As per ID recommendation vancomycin 4 weeks - tentative stop date January 02. Rifampin discontinued as Ceretec negative. Continue to monitor creatinine - remains stable. - Per ID, patient can be placed in detention to complete treatment - continue lactobacillus - patient remains afebrile Cervical spine osteomyelitis: Diagnosed July 2016. Patient was evaluated by neurosurgery at that time. Continue cervical collar. - Appreciate neurosurgery recommendations. - Patient is not a good surgical candidate at this time due to ongoing IV drug abuse and high infection risk. Still complaining of neck pain, controlled. Tolerating soft collar. - MRI cervical spine 11/29 - Substantial improvement when compared to 08/06/16 substantial decrease in the amount of enhancement. - Ceretec tagged white cell study shows no abnormal white cell accumulation in the cervical spine. 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 MD discussed addiction issue with the patient. She is adamant that she does not abuse her prescriptions medication and reportedly had a relapse with amphetamines. - No changes should be made with her narcotics. Percocet 5/325mg q4hrs, Percocet 7.5mg/325mg q4hrs. 12/29 patient appears to be more somnolent. Decrease dose of pain medications to Percocet 5/325mg po q4h prn only. Hypertension: - controlled off of meds - Continue to hold lisinopril - monitor BP DVT prophylaxis: Lovenox. Full code Discussed with patient,RN, and Drs. Angulo and Breanna Discharge Planning Difficult discharge. CM assisting. Discussed with CM pt's desire to enter drug rehab after leaving [facility] [place]. CM noted she would present information and phone number to pt to contact the [facility]. Chema Price Jr. Dec 31, 2016 16:04
[2016-12-31 16:59] VITALS: BP 107/70; PULSE 82; RESP 18; TEMP 97.9; O2SAT 98
[2016-12-31 20:00] VITALS: BP 117/55; PULSE 93; RESP 20; TEMP 98.2; O2SAT 100
[2016-12-31] MEDS: ENOXAPARIN SODIUM 40 MG/0.4 ML SYRINGE SQ SCH (20:12)
[2017-01-01] MEDS: VANCOMYCIN 1,000 MG/NS 250 ML IV SCH ×4 (00:06→12:15)
[2017-01-01 01:37] VITALS: BP 107/60; PULSE 90; RESP 18; TEMP 98.3; O2SAT 96
[2017-01-01] MEDS: oxyCODONE/ACETAMINOPHEN 5 MG/325 MG TAB PO PRN ×5 (01:37→21:12)
[2017-01-01 06:43] VITALS: BP 96/55; PULSE 66; RESP 18; TEMP 97.4; O2SAT 96
[2017-01-01 08:43] VITALS: BP 125/72; PULSE 69; RESP 18; TEMP 97.6; O2SAT 97
[2017-01-01] MEDS: CETIRIZINE HCL 10 MG TAB PO SCH (08:48)
[2017-01-01] MEDS: VENLAFAXINE HCL XR 37.5 MG CAP PO SCH (08:48)
[2017-01-01] MEDS: DOCUSATE SODIUM 100 MG CAP PO SCH ×2 (08:48→21:11)
[2017-01-01] MEDS: LACTOBACILLUS ACIDOPHILUS TAB PO SCH ×2 (08:48→21:12)
[2017-01-01] MEDS: SODIUM CHLORIDE 0.9% FLUSH 10 ML FLUSH IV FLUSH SCH ×3 (08:52→21:12)
[2017-01-01 12:05] VITALS: BP 118/56; PULSE 70; RESP 18; TEMP 98.4; O2SAT 99
--- NOTE | 2017-01-01 14:40 | HHI.PR ---
Subjective Remarks Follow-up on patient with endocarditis, cervical spine osteomyelitis, hypertension. Patient seen and examined. She denied cough, chest pain, shortness of breath, fatigue. Reported feeling "good" this morning and wanted "to take a shower" after clinical visit was completed. Patient stated she was hopeful that she would be discharged tomorrow when her antibiotics regimen is completed. Patient informed that infectious disease would need to approve discharge. Denied any acute medical complaints. Denied fever, chills, N/V/D, abdominal pain, bowel or bladder issues. Per RN (Nereyda) no acute issues noted or reported over night or since start of shift. Objective Vitals Vital Signs Date Time Temp Pulse Resp B/P (MAP) Pulse Ox O2 Delivery O2 Flow Rate FiO2 01/01/17 12:05 98.4 70 18 118/56 (76) 99 01/01/17 08:43 97.6 69 18 125/72 (89) 97 01/01/17 06:43 97.4 66 18 96/55 (69) 96 01/01/17 01:37 98.3 90 18 107/60 (76) 96 12/31/16 20:00 98.2 93 20 117/55 (75) 100 12/31/16 16:59 97.9 82 18 107/70 (82) 98 I/O 12/31/16 12/31/16 12/31/16 01/01/17 01/01/17 01/01/17 07:00 15:00 23:00 07:00 15:00 23:00 Intake Total 960 ml 240 ml Balance 960 ml 240 ml Intake Oral 960 ml 240 ml # Voids 4 1 3 # Bowel Movements 1 1 Result Diagram: 12/31/16 0630 Objective Remarks GENERAL: Pt encountered sleeping, participated minimally in exam, NAD. SKIN: Warm and dry. Nasal piercing of left naris noted HEAD: Normocephalic. EYES: No scleral icterus. No injection or drainage. NECK: Supple, trachea midline. CARDIOVASCULAR: Regular rate and rhythm without murmurs, gallops, or rubs. RESPIRATORY: Breath sounds equal bilaterally. No accessory muscle use. GASTROINTESTINAL: Abdomen soft, non-tender, nondistended. MUSCULOSKELETAL: No cyanosis, or edema. PSYCHIATRIC: Mood and affect appropriate. Insight and judgment normal. Speech was clear and fluent. Procedures None Medications and IVs Current Medications Medications (Trade) Dose Ordered Sig/Declan Route Start Time Stop Time Status Last Admin (NS Flush) 2 ml UNSCH PRN IV FLUSH 11/26/16 17:30 12/08/16 21:31 (NS Flush) 2 ml BID IV FLUSH 11/26/16 21:00 12/31/16 20:12 (Tylenol) 650 mg Q4H PRN PO 11/26/16 17:30 (Lovenox Inj) 40 mg Q24H SQ 11/26/16 20:00 12/31/16 20:12 (Narcan Inj) 0.4 mg UNSCH PRN IV 11/26/16 17:30 (Milk Of Magnesia Liq) 30 ml Q12H PRN PO 11/26/16 17:30 (Senokot) 17.2 mg Q12H PRN PO 11/26/16 17:30 (Dulcolax Supp) 10 mg DAILY PRN RECTAL 11/26/16 17:30 (Lactulose Liq) 30 ml DAILY PRN PO 11/26/16 17:30 Pharmacy Profile Note 0 ml @ 0 mls/hr UNSCH OTHER 11/26/16 17:45 (ZyrTEC) 10 mg DAILY PO 11/27/16 09:00 01/01/17 08:48 (Colace) 100 mg Q12H PO 11/26/16 21:00 01/01/17 08:48 (Percocet 5-325 Mg) 1 tab Q4H PRN PO 11/26/16 18:15 01/01/17 12:17 (Effexor Xr) 37.5 mg DAILY PO 11/27/16 09:00 01/01/17 08:48 (Ativan) 0.5 mg Q6H PRN PO 11/28/16 14:00 12/16/16 22:03 (Prinivil) 10 mg DAILY PO 12/01/16 13:30 Future Hold 12/04/16 08:40 Vancomycin HCl 1000 mg/Sodium Chloride 250 ml @ 250 mls/hr Q12H IV 12/21/16 00:00 01/01/17 12:15 (NS Flush) See Protocol DAILY IV FLUSH 12/23/16 09:00 01/01/17 08:52 (NS Flush) See Protocol UNSCH PRN IV FLUSH 12/22/16 14:15 (Heparin Central Flush) See Protocol DAILY IV FLUSH 12/23/16 09:00 01/01/17 08:51 (Heparin Central Flush) See Protocol UNSCH PRN IV FLUSH 12/22/16 14:15 (NS Flush) UNSCH PRN IV FLUSH 12/22/16 14:15 12/26/16 08:19 (Lactinex) 1 tab Q12HR PO 12/24/16 10:15 01/01/17 08:48 A/P Problem List: (1) Amphetamine use disorder, severe, dependence ICD Code: F15.20 - Other stimulant dependence, uncomplicated Status: Acute (2) Abscess in epidural space of lumbar spine ICD Code: G06.1 - Intraspinal abscess and granuloma Status: Acute (3) Osteomyelitis of cervical spine ICD Code: M46.22 - Osteomyelitis of vertebra, cervical region Status: Acute (4) Neck abscess ICD Code: L02.11 - Cutaneous abscess of neck Status: Acute (5) Infectious endocarditis ICD Code: I33.0 - Acute and subacute infective endocarditis Status: Acute (6) Bacteremia ICD Code: R78.81 - Bacteremia Status: Acute (7) Fever ICD Code: R50.9 - Fever, unspecified Status: Resolved (8) IV drug abuse ICD Code: F19.10 - Other psychoactive substance abuse, uncomplicated Status: Chronic (9) Tachycardia ICD Code: R00.0 - Tachycardia, unspecified Status: Acute Assessment and Plan 46-year-old female with a past medical history of IVDA, cervical osteomyelitis, endocarditis, lumbar abscesses who presented with agitation and altered mental status. Depression: Stable. Hypertension: Stable. Patient's discharge orders to include referral to cardiology. Endocarditis: IV antibiotics continue. CBC and BMP ordered for tomorrow morning. Acute encephalopathy: On presentation. - likely related to drug overdose. Urine drug screen positive for opiates and amphetamines. - Encephalopathy has since resolved. - appears somnolent, likely due to just being woken up prior to exam. Check random UDS. 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 Source is MRSA bacteremia, cellulitis of left arm, possible ongoing cervical spine osteomyelitis. - Continue IV antibiotics. Appreciate infectious disease recommendations. Blood cultures are positive for MRSA. Repeat BCX shows no growth x 5 days. - TV endocarditis previously for both MRSA and MSSA - 2D echo 11/30 EF 35-40%, vegetation on the posterior leaflet of the tricuspid valve, mild to moderate tricuspid valve regurgitation, mild PHTN. Patient not candidate for PETER 2/2 cervical disease - s/p PICC line placement 12/22/16 - As per ID recommendation vancomycin 4 weeks - tentative stop date January 02. Rifampin discontinued as Ceretec negative. Continue to monitor creatinine - remains stable. 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 Patient was evaluated by neurosurgery at that time. Continue cervical collar. - Appreciate neurosurgery recommendations. - Patient is not a good surgical candidate at this time due to ongoing IV drug abuse and high infection risk. Still complaining of neck pain, controlled. Tolerating soft collar. - MRI cervical spine 11/29 - Substantial improvement when compared to 08/06/16 substantial decrease in the amount of enhancement. - Ceretec tagged white cell study shows no abnormal white cell accumulation in the cervical spine. 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 discussed addiction issue with the patient. She is adamant that she does not abuse her prescriptions medication and reportedly had a relapse with amphetamines. - No changes should be made with her narcotics. Percocet 5/325mg q4hrs, Percocet 7.5mg/325mg q4hrs. 12/29 patient appears to be more somnolent. Decrease dose of pain medications to Percocet 5/325mg po q4h prn only. Hypertension: - controlled off of meds - Continue to hold lisinopril - monitor BP DVT prophylaxis: Lovenox. Full code Discussed with patient,RN, and Dr. Angulo Discharge Planning Difficult discharge. CM assisting. Discussed with CM pt's desire to enter drug rehab after [place] [facility] [place]. CM noted she would present information and phone number to pt to contact the [facility] program. Pt to be discharged home when antibiotic regimen is completed. Chema Price Jr. Jan 01, 2017 14:40
[2017-01-01 16:42] VITALS: BP 109/68; PULSE 88; RESP 16; TEMP 98.6; O2SAT 99
--- NOTE | 2017-01-01 17:20 | HHI.DS ---
Discharge Summary Admission Date Nov 26, 2016 at 16:23 Discharge Date: Jan 02, 2017 Admitting Diagnosis sepsis/cellulitis/polysubstance abuse (1) Infectious endocarditis ICD Code: I33.0 - Acute and subacute infective endocarditis Diagnosis: Principal Status: Acute (2) Amphetamine use disorder, severe, dependence ICD Code: F15.20 - Other stimulant dependence, uncomplicated Diagnosis: Secondary Status: Acute (3) Abscess in epidural space of lumbar spine ICD Code: G06.1 - Intraspinal abscess and granuloma Diagnosis: Secondary Status: Acute (4) Osteomyelitis of cervical spine ICD Code: M46.22 - Osteomyelitis of vertebra, cervical region Diagnosis: Secondary Status: Acute (5) Neck abscess ICD Code: L02.11 - Cutaneous abscess of neck Diagnosis: Principal Status: Acute (6) Bacteremia ICD Code: R78.81 - Bacteremia Diagnosis: Principal Status: Acute (7) Fever ICD Code: R50.9 - Fever, unspecified Diagnosis: Principal Status: Resolved (8) IV drug abuse ICD Code: F19.10 - Other psychoactive substance abuse, uncomplicated Diagnosis: Secondary Status: Chronic (9) Tachycardia ICD Code: R00.0 - Tachycardia, unspecified Diagnosis: Secondary Status: Acute Procedures None Brief History - From Admission 46-year-old female with a past medical history of IVDA, cervical osteomyelitis, endocarditis, lumbar abscesses who presented with agitation and altered mental status. Per report, the patient was brought in by family secondary to agitation and altered mental status. The patient required restraints and Ativan in the ED. The patient is awake, alert, and follows commands, but is currently nonverbal. And thus and noncontributory historian History is obtained from ED communication the medical record. The patient's daughter thought that the patient took flakka in the patient's roommate thought that she took meth. Reportedly she seen treated outpatient for a blood infection. She has had multiple admissions for infections here in the past. She was found to have a high fever in the ED and received IV vancomycin. CBC/BMP: 12/31/16 0630 Significant Findings Laboratory Tests Test 12/31/16 06:30 PE at Discharge GENERAL: Pt encountered sleeping, participated minimally in exam, NAD. SKIN: Warm and dry. Nasal piercing of left naris noted HEAD: Normocephalic. EYES: No scleral icterus. No injection or drainage. NECK: Supple, trachea midline. CARDIOVASCULAR: Regular rate and rhythm without murmurs, gallops, or rubs. RESPIRATORY: Breath sounds equal bilaterally. No accessory muscle use. GASTROINTESTINAL: Abdomen soft, non-tender, nondistended. MUSCULOSKELETAL: No cyanosis, or edema. PSYCHIATRIC: Mood and affect appropriate. Insight and judgment normal. Speech was clear and fluent. Hospital Course Patient admitted on 11/26/16 for altered mental status thought to be secondary to drug usage. Additionally she evidenced bacteremia. Patient was seen by Dr. Irvin Carlos (infectious disease) and was started on a course of vancomycin. 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 Additional findings indicated she had an ejection fraction of 35-40% as well as mild pulmonary hypertension(40-55 mmHg). Patient was subsequently placed on a regimen of rifampin and vancomycin; with the vancomycin being continued throughout the course of her hospitalization. Routine studies indicated patient had a significant kyphosis of the cervical region. Dr. Aravind Oliver with neurosurgery was consulted and he determined that the patient's C2 to C4 region had spontaneously fused and patient did not require surgery at this time. Patient's IV drug use history was addressed. Patient stated that she did want services to address her addiction and she was given the contact information for the [employer] program. When she contacted that service she was informed that her insurance was not accepted by them and she is continuing to look for treatment options. Patient has noted that she is involved with Alcoholics Anonymous and does have a sponsor. While hospitalized patient receives services from physical therapy as well as occupational therapy. Pt Condition on Discharge: Stable Discharge Disposition: Discharge Home Discharge Time: <= 30 minutes Discharge Instructions Follow up Referrals: Cardiology - 1 Month PCP Follow-up - 2-3 Days Continued Medications: Cetirizine (Cetirizine) 10 Mg Tab 10 MG PO DAILY for Allergies, #30 TAB Venlafaxine ER 24 HR (Effexor XR 24 HR) 37.5 Mg Cap 37.5 MG PO DAILY, #30 CAP 0 Refills Discontinued Medications: Cefazolin Inj (Cefazolin Inj) 2 Gm/50 Ml Bagp 2 GM IV Q8H for Infection for 35 Days, BAG 0 Refills Docusate Sodium (Dok) 100 Mg Cap 100 MG PO Q12H for Constipation, #60 CAP Epinephrine Inj (Epinephrine Inj) 1 Mg/Ml Inj 0.3 MG IV PUSH ONCE PRN for ALLERGIC REACTION, #1 VIAL Epinephrine Inj (Epinephrine Inj) 1 Mg/Ml Inj 0.3 MG SQ ONCE PRN for ALLERGIC REACTION, #1 VIAL Give with any signs of respiratory distress. Hydrocortisone Inj (Solu-Cortef Inj) 250 Mg Inj 250 MG IV PUSH ONCE PRN for ALLERGIC REACTION, #1 VIAL 0 Refills Give over 30-60 seconds. Nicotine Patch (Nicotine Patch) 14 Mg/24 Hr Patch 1 PATCH T-DERMAL DAILY for SMOKING, #30 PATCH Oxycodone-Acetaminophen (Oxycodone-Acetaminophen) 5-325 mg Tab 1 TAB PO Q4H PRN for pain, #24 TAB Rifampin (Rifampin) 150 Mg Cap 300 MG PO Q12HR for Infection for 80 Days, CAP Vancomycin Inj (Vancomycin Inj) 10 Gm Inj 1250 MG IV Q12HR for Infection for 80 Days, VIAL Chema Price Jr. Jan 01, 2017 17:20
[2017-01-01 20:00] VITALS: BP_SYST 102; BP_SYST 117; BP_DIAS 55; BP_DIAS 65; PULSE 100; PULSE 79; RESP 20; TEMP 98.1; O2SAT 97
[2017-01-01] MEDS: ENOXAPARIN SODIUM 40 MG/0.4 ML SYRINGE SQ SCH (21:11)
[2017-01-02] VITALS: BP 113/56; PULSE 97; RESP 20; TEMP 98; O2SAT 100
[2017-01-02] MEDS: VANCOMYCIN 1,000 MG/NS 250 ML IV SCH ×4 (00:24→11:56)
[2017-01-02] MEDS: oxyCODONE/ACETAMINOPHEN 5 MG/325 MG TAB PO PRN ×3 (01:47→16:07)
[2017-01-02 04:00] VITALS: BP 96/54; PULSE 74; RESP 17; TEMP 97.5; O2SAT 96
[2017-01-02 05:52] LABS: MEAN CELL VOLUME 62.5 FL (80.0-100.0); MEAN CORPUSCULAR HEMOGLOBIN 20.2 PG (27.0-34.0); MEAN CORPUSCULAR HGB CONC 32.3 % (32.0-36.0); PLATELET COUNT 269 TH/MM3 (150-450); RED BLOOD COUNT 4.16 MIL/MM3 (4.00-5.30); RED CELL DISTRIBUTION WIDTH 21.8 % (11.6-17.2); REVIEW FLAG FINAL; WHITE BLOOD COUNT 6.7 TH/MM3 (4.0-11.0)
[2017-01-02 06:04] LABS: BICARBONATE 30.7 MEQ/L (21.0-32.0)
[2017-01-02 08:53] VITALS: BP 120/58; PULSE 66; RESP 16; TEMP 97.9; O2SAT 97
[2017-01-02] MEDS: SODIUM CHLORIDE 0.9% FLUSH 10 ML FLUSH IV FLUSH SCH ×2 (09:00)
[2017-01-02] MEDS: CETIRIZINE HCL 10 MG TAB PO SCH (09:15)
[2017-01-02] MEDS: LACTOBACILLUS ACIDOPHILUS TAB PO SCH (09:15)
[2017-01-02] MEDS: DOCUSATE SODIUM 100 MG CAP PO SCH (09:15)
[2017-01-02] MEDS: VENLAFAXINE HCL XR 37.5 MG CAP PO SCH (09:15)
[2017-01-02 12:17] VITALS: BP 122/69; PULSE 81; RESP 16; TEMP 97.6; O2SAT 98
--- NOTE | 2017-01-02 13:25 | HHI.PR ---
Subjective Remarks Follow-up on patient with endocarditis, cervical spine osteomyelitis, hypertension. Patient seen and examined. Patient reported to be "tired" and was "wanting to sleep in". She denied cough, chest pain, shortness of breath, fatigue. Denied any acute medical complaints. Denied fever, chills, N/V/D, abdominal pain, bowel or bladder issues. Per RN (Nereyda) no acute issues noted or reported over night or since start of shift. Objective Vitals Vital Signs Date Time Temp Pulse Resp B/P (MAP) Pulse Ox O2 Delivery O2 Flow Rate FiO2 01/02/17 12: 97.6 81 16 122/69 (86) 98 01/02/17 08:53 97.9 66 16 120/58 (78) 97 01/02/17 04:00 97.5 74 17 96/54 (68) 96 01/02/17 00:00 98.0 97 20 113/56 (75) 100 01/01/17 20:00 98.1 100 20 117/65 (82) 97 01/01/17 16:42 98.6 88 16 109/68 (82) 99 I/O 01/01/17 01/01/17 01/01/17 01/02/17 01/02/17 01/02/17 06:59 14:59 22:59 06:59 14:59 22:59 Intake Total 960 ml 240 ml 720 ml Balance 960 ml 240 ml 720 ml Intake Oral 960 ml 240 ml 720 ml # Voids 3 3 3 # Bowel Movements 1 0 0 Result Diagram: 01/02/1752101/02/17521 Imaging Current Medications Medications (Trade) Dose Ordered Sig/Declan Route Start Time Stop Time Status Last Admin (NS Flush) 2 ml UNSCH PRN IV FLUSH 11/26/16 17:30 12/08/16 21:31 (NS Flush) 2 ml BID IV FLUSH 11/26/16 21:00 01/01/17 21:12 (Tylenol) 650 mg Q4H PRN PO 11/26/16 17:30 (Lovenox Inj) 40 mg Q24H SQ 11/26/16 20:00 01/01/17 21:11 (Narcan Inj) 0.4 mg UNSCH PRN IV 11/26/16 17:30 (Milk Of Magnesia Liq) 30 ml Q12H PRN PO 11/26/16 17:30 (Senokot) 17.2 mg Q12H PRN PO 11/26/16 17:30 (Dulcolax Supp) 10 mg DAILY PRN RECTAL 11/26/16 17:30 (Lactulose Liq) 30 ml DAILY PRN PO 11/26/16 17:30 Pharmacy Profile Note 0 ml @ 0 mls/hr UNSCH OTHER 11/26/16 17:45 (ZyrTEC) 10 mg DAILY PO 11/27/16 09:00 01/02/17 09:15 (Colace) 100 mg Q12H PO 11/26/16 21:00 01/02/17 09:15 (Percocet 5-325 Mg) 1 tab Q4H PRN PO 11/26/16 18:15 01/02/17 11:57 (Effexor Xr) 37.5 mg DAILY PO 11/27/16 09:00 01/02/17 09:15 (Ativan) 0.5 mg Q6H PRN PO 11/28/16 14:00 12/16/16 22:03 (Prinivil) 10 mg DAILY PO 12/01/16 13:30 Future Hold 12/04/16 08:40 Vancomycin HCl 1000 mg/Sodium Chloride 250 ml @ 250 mls/hr Q12H IV 12/21/16 00:00 01/02/17 11:56 (NS Flush) See Protocol DAILY IV FLUSH 12/23/16 09:00 01/01/17 08:52 (NS Flush) See Protocol UNSCH PRN IV FLUSH 12/22/16 14:15 (Heparin Central Flush) See Protocol DAILY IV FLUSH 12/23/16 09:00 01/02/17 09:16 (Heparin Central Flush) See Protocol UNSCH PRN IV FLUSH 12/22/16 14:15 (NS Flush) UNSCH PRN IV FLUSH 12/22/16 14:15 01/02/17 09:16 (Lactinex) 1 tab Q12HR PO 12/24/16 10:15 01/02/17 09:15 Miscellaneous Information SPECIFIC LAB TO BE DELIA... ONCE ONCE .XX 01/02/17 23:45 01/02/17 23:46 Objective Remarks GENERAL: Pt encountered sleeping, participated minimally in exam, NAD. SKIN: Warm and dry. Nasal piercing of left naris noted HEAD: Normocephalic. EYES: No scleral icterus. No injection or drainage. NECK: Supple, trachea midline. CARDIOVASCULAR: Regular rate and rhythm without murmurs, gallops, or rubs. RESPIRATORY: Breath sounds equal bilaterally. No accessory muscle use. GASTROINTESTINAL: Abdomen soft, non-tender, nondistended. MUSCULOSKELETAL: No cyanosis, or edema. PSYCHIATRIC: Mood and affect appropriate. Insight and judgment normal. Speech was clear and fluent. Procedures None Medications and IVs Current Medications Medications (Trade) Dose Ordered Sig/Declan Route Start Time Stop Time Status Last Admin (NS Flush) 2 ml UNSCH PRN IV FLUSH 11/26/16 17:30 12/08/16 21:31 (NS Flush) 2 ml BID IV FLUSH 11/26/16 21:00 01/01/17 21:12 (Tylenol) 650 mg Q4H PRN PO 11/26/16 17:30 (Lovenox Inj) 40 mg Q24H SQ 11/26/16 20:00 01/01/17 21:11 (Narcan Inj) 0.4 mg UNSCH PRN IV 11/26/16 17:30 (Milk Of Magnesia Liq) 30 ml Q12H PRN PO 11/26/16 17:30 (Senokot) 17.2 mg Q12H PRN PO 11/26/16 17:30 (Dulcolax Supp) 10 mg DAILY PRN RECTAL 11/26/16 17:30 (Lactulose Liq) 30 ml DAILY PRN PO 11/26/16 17:30 Pharmacy Profile Note 0 ml @ 0 mls/hr UNSCH OTHER 11/26/16 17:45 (ZyrTEC) 10 mg DAILY PO 11/27/16 09:00 01/02/17 09:15 (Colace) 100 mg Q12H PO 11/26/16 21:00 01/02/17 09:15 (Percocet 5-325 Mg) 1 tab Q4H PRN PO 11/26/16 18:15 01/02/17 11:57 (Effexor Xr) 37.5 mg DAILY PO 11/27/16 09:00 01/02/17 09:15 (Ativan) 0.5 mg Q6H PRN PO 11/28/16 14:00 12/16/16 22:03 (Prinivil) 10 mg DAILY PO 12/01/16 13:30 Future Hold 12/04/16 08:40 Vancomycin HCl 1000 mg/Sodium Chloride 250 ml @ 250 mls/hr Q12H IV 12/21/16 00:00 01/02/17 11:56 (NS Flush) See Protocol DAILY IV FLUSH 12/23/16 09:00 01/01/17 08:52 (NS Flush) See Protocol UNSCH PRN IV FLUSH 12/22/16 14:15 (Heparin Central Flush) See Protocol DAILY IV FLUSH 12/23/16 09:00 01/02/17 09:16 (Heparin Central Flush) See Protocol UNSCH PRN IV FLUSH 12/22/16 14:15 (NS Flush) UNSCH PRN IV FLUSH 12/22/16 14:15 01/02/17 09:16 (Lactinex) 1 tab Q12HR PO 12/24/16 10:15 01/02/17 09:15 Miscellaneous Information SPECIFIC LAB TO BE DELIA... ONCE ONCE .XX 01/02/17 23:45 01/02/17 23:46 A/P Problem List: (1) Infectious endocarditis ICD Code: I33.0 - Acute and subacute infective endocarditis Status: Acute (2) Amphetamine use disorder, severe, dependence ICD Code: F15.20 - Other stimulant dependence, uncomplicated Status: Acute (3) Abscess in epidural space of lumbar spine ICD Code: G06.1 - Intraspinal abscess and granuloma Status: Acute (4) Osteomyelitis of cervical spine ICD Code: M46.22 - Osteomyelitis of vertebra, cervical region Status: Acute (5) Neck abscess ICD Code: L02.11 - Cutaneous abscess of neck Status: Acute (6) Bacteremia ICD Code: R78.81 - Bacteremia Status: Acute (7) Fever ICD Code: R50.9 - Fever, unspecified Status: Resolved (8) IV drug abuse ICD Code: F19.10 - Other psychoactive substance abuse, uncomplicated Status: Chronic (9) Tachycardia ICD Code: R00.0 - Tachycardia, unspecified Status: Acute Assessment and Plan 46-year-old female with a past medical history of IVDA, cervical osteomyelitis, endocarditis, lumbar abscesses who presented with agitation and altered mental status. Microcytic anemia: Hemoglobin 8.4 (down from 9.8 on 12/14/16) hemoglobin 26.0 ( down from 31.4 on 12/14/16). Hypertension: Stable. Patient's discharge orders to include referral to cardiology. Endocarditis: IV antibiotics continue; with planned discontinuation on 01/02/17. Awaiting input from infectious disease: If cleared will discharge. Acute encephalopathy: On presentation. - likely related to drug overdose. Urine drug screen positive for opiates and amphetamines. - Encephalopathy has since resolved. - appears somnolent, likely due to just being woken up prior to exam. Check random UDS. 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 Source is MRSA bacteremia, cellulitis of left arm, possible ongoing cervical spine osteomyelitis. - Continue IV antibiotics. Appreciate infectious disease recommendations. Blood cultures are positive for MRSA. Repeat BCX shows no growth x 5 days. - TV endocarditis previously for both MRSA and MSSA - 2D echo 11/30 EF 35-40%, vegetation on the posterior leaflet of the tricuspid valve, mild to moderate tricuspid valve regurgitation, mild PHTN. Patient not candidate for PETER 2/2 cervical disease - s/p PICC line placement 12/22/16 - As per ID recommendation vancomycin 4 weeks - tentative stop date January 02. Rifampin discontinued as Ceretec negative. Continue to monitor creatinine - remains stable. - Per ID, patient can be placed in residential to complete treatment - continue lactobacillus - patient remains afebrile Cervical spine osteomyelitis: Diagnosed July 2016. Patient was evaluated by neurosurgery at that time. Continue cervical collar. - Appreciate neurosurgery recommendations. - Patient is not a good surgical candidate at this time due to ongoing IV drug abuse and high infection risk. Still complaining of neck pain, controlled. Tolerating soft collar. - MRI cervical spine 11/29 - Substantial improvement when compared to 08/06/16 substantial decrease in the amount of enhancement. - Ceretec tagged white cell study shows no abnormal white cell accumulation in the cervical spine. RUE weakness/weak right hospitalist program director strength - likely secondary to above - improving per patient report - no complaints of cervical radiculopathy - OT signed off, patient independent with exercises Chronic pain: She is an IV drug user. discussed addiction issue with the patient. She is adamant that she does not abuse her prescriptions medication and reportedly had a relapse with amphetamines. - No changes should be made with her narcotics. Percocet 5/325mg q4hrs, Percocet 7.5mg/325mg q4hrs. 12/29 patient appears to be more somnolent. Decrease dose of pain medications to Percocet 5/325mg po q4h prn only. Hypertension: - controlled off of meds - Continue to hold lisinopril - monitor BP DVT prophylaxis: Lovenox. Full code Discussed with patient,RN, and Dr. Angulo Discharge Planning Difficult discharge. CM assisting. Discussed with CM pt's desire to enter drug rehab after leaving [facility]. CM noted she would present information and phone number to pt to contact the [facility] program. Pt to be discharged home when antibiotic regimen is completed. Chema Price Jr. ARY Jan 02, 2017 13:25
--- NOTE | 2017-01-02 16:21 | HHI.DCPOC ---
Discharge Care Plan Diagnosis: (1) Infectious endocarditis (2) Pulmonary hypertension (3) IV drug abuse Goals to Promote Your Health * To prevent worsening of your condition and complications * To maintain your health at the optimal level Directions to Meet Your Goals Take your medications as prescribed Follow your dietary instruction Follow activity as directed Keep your appointments as scheduled Take your immunizations and boosters as scheduled If your symptoms worsen call your PCP, if no PCP go to Urgent Care Center or Emergency Room Smoking is Dangerous to Your Health. Avoid second hand smoke Call the 24-hour hour crisis hotline for domestic abuse at Chema Price Jr. ARY Jan 02, 2017 16:21
[2017-01-02] MEDS ORDERED: PHARMACY ORDERED LAB ONE (23:45)
== END 2017-01-02 19:12 | disposition home or self-care (01) | DRG 871 ==
LOC: NEPE 13:42 → NEDA 16:23 → N05B 19:16
PROVIDERS: ADMIT Hospitalist; ATTEND Hospitalist
DX: A41.02 Sepsis due to Methicillin resistant Staphylococcus aureus (principal); I33.0 Acute and subacute infective endocarditis; G06.1 Intraspinal abscess and granuloma; G92 Toxic encephalopathy; F15.20 Other stimulant dependence, uncomplicated; I27.20 Pulmonary hypertension, unspecified; L03.114 Cellulitis of left upper limb; M46.22 Osteomyelitis of vertebra, cervical region; L02.11 Cutaneous abscess of neck; T50.901A Poisoning by unspecified drugs, medicaments and biological substances, accidental (unintentional), initial encounter; F19.10 Other psychoactive substance abuse, uncomplicated; D50.9 Iron deficiency anemia, unspecified; I10 Essential (primary) hypertension; R65.20 Severe sepsis without septic shock; Z78.1 Physical restraint status; F32.9 Major depressive disorder, single episode, unspecified; Z80.3 Family history of malignant neoplasm of breast; Z80.1 Family history of malignant neoplasm of trachea, bronchus and lung; Z86.61 Personal history of infections of the central nervous system; Y92.9 Unspecified place or not applicable; M40.202 Unspecified kyphosis, cervical region; Z91.19 Patient's noncompliance with other medical treatment and regimen; F17.210 Nicotine dependence, cigarettes, uncomplicated; G89.29 Other chronic pain; R11.10 Vomiting, unspecified; F41.9 Anxiety disorder, unspecified
CPT/HCPCS: 36569; 71010; 72050; 72125; 72156; 76937; 78806; 78807; 78999; 80048; 80053; 80202; 80307; 81001; 82565; 83036; 83605; 83735; 84100; 84439; 84443; 84702; 85007; 85025; 85027; 86403; 87040; 87086; 87186; 87205; 93005; 93308; 96365; 96366; 96375; A9569; A9579; G0481; J0692; J1642; J1650; J2060; J3370; J3480; J7030; J7040; J7050; L0120

== ENCOUNTER 2017-05-08 14:44 | Emergency (ER) | payer MEDICARE, OTHER ==
[~2017-05-08] VITALS: Ht 162.6 cm; Wt 60.0 kg
[~2017-05-08 14:44] MED LIST changes: -CEFA2SOL IV; -DOCU1CAP39 PO; -EPIN1INJ21 IV PUSH; -EPIN1INJ21 SQ; -NICO14DI T-DERMAL; -OXYC1TAB63 PO; -RIFA150C2 PO; -SOLU250I IV PUSH; -VANC10IN IV
[2017-05-08 14:46] VITALS: BP 113/68; PULSE 96; RESP 18; TEMP 98.4; O2SAT 98
[2017-05-08] MEDS ORDERED: MORP1TAB25 PO (18:03)
[2017-05-08] MEDS ORDERED: PERC10TA27 PO (18:03)
[2017-05-08] MEDS ORDERED: SODIUM CHLOR 0.9% 1000 ML INJ 1,000 ML IV SCH (18:05)
--- NOTE | 2017-05-08 18:13 | PD ---
HPI Chief Complaint: Pain: Acute or Chronic Time Seen by Provider: 17:57 Travel History International Travel<30 days: No Contact w/Intl Traveler<30days: No Traveled to known affect area: No History of Present Illness HPI 46-year-old female with history of IV drug abuse, osteomyelitis/epidural abscess the cervical spine, presents for evaluation of increased neck pain. She reports that over the past 3 days she's had increased pain in her neck with associated paresthesias in the fingers. Pain is an aching pain which is constant, unrelieved with her prescribed morphine and Percocet. She reports that she had a fever of 102 yesterday with associated chills, myalgias. She reports that last time that she used IV drugs was in October 2016. She endorses some urinary hesitancy on review of systems some skin breakdown to the posterior neck. She reports that she wears a soft collar at all times. She is otherwise without complaint at this time. PFSH Past Medical History Asthma: Yes Anxiety: Yes Depression: No Cancer: No Cardiovascular Problems: Yes COPD: Yes (PT DENIES) Diminished Hearing: No Endocrine: No Genitourinary: No Hypertension: Yes Immune Disorder: No Musculoskeletal: Yes Neurologic: No Psychiatric: No Reproductive: No Respiratory: Yes (asthma) Immunizations Current: Yes Influenza Vaccination: No ?: Not LMP: 11/2016 Menopausal: No : 4 Para: 3 Miscarriage: 1 Past Surgical History Other Surgery: Yes Social History Alcohol Use: No Tobacco Use: Yes (04/02 ppd) Substance Use: No (pt states she is clean hx ivdu) Allergies-Medications (Allergen,Severity, Reaction): Coded Allergies: penicillin G (Unverified Allergy, Intermediate, Rash, 05/08/17) Has taken Keflex without any problem Uncoded Allergies: chemical allergy (Allergy, Severe, anaphalactic, 09/27/12) Reported Meds & Prescriptions Reported Meds & Active Scripts Active Bactrim DS (Sulfamethoxazole-Trimethoprim) 800-160 Mg Tab 1 Tab PO BID Effexor XR 24 HR (Venlafaxine HCl) 37.5 Mg Cap 37.5 Mg PO DAILY Cetirizine (Cetirizine HCl) 10 Mg Tab 10 Mg PO DAILY Reported Percocet (Oxycodone-Acetaminophen) 10-325 mg Tab 1 Tab PO Q6H PRN Morphine ER (Morphine Sulfate) 30 Mg Tab 30 Mg PO BID Review of Systems Except as stated in HPI: all other systems reviewed are Neg Physical Exam Narrative GENERAL: Well-developed well-nourished female in no acute distress SKIN: Warm and dry. Areas of skin maceration noted to the posterior neck. Chronic nodules and needle track mercado noted to bilateral arms. HEAD: Atraumatic. Normocephalic. EYES: Pupils equal and round. No scleral icterus. No injection or drainage. ENT: No nasal bleeding or discharge. Mucous membranes pink and moist. NECK: Trachea midline. No JVD. CARDIOVASCULAR: Regular rate and rhythm. No murmur appreciated. RESPIRATORY: No accessory muscle use. Clear to auscultation. Breath sounds equal bilaterally. GASTROINTESTINAL: Abdomen soft, non-tender, nondistended. Hepatic and splenic margins not palpable. MUSCULOSKELETAL: No obvious deformities. There is some tenderness to palpation along the cervical spine. Normal desk clerk strength. 5 out of 5 muscle strength and arm flexion and extension bilaterally. NEUROLOGICAL: Awake and alert. No obvious cranial nerve deficits. Motor grossly within normal limits. Normal speech. Data Data Last Documented VS Vital Signs Date Time Temp Pulse Resp B/P (MAP) Pulse Ox O2 Delivery O2 Flow Rate FiO2 05/08/17 22:21 05/08/17 18:04 17 05/08/17 14:46 98.4 96 98 Orders Orders Sepsis Workup Initiated (05/08/17 ) Complete Blood Count With Diff (05/08/17 18:05) Comprehensive Metabolic Panel (05/08/17 18:05) Lactic Acid Sepsis Protocol (05/08/17 18:05) Magnesium (Mg) (05/08/17 18:05) Urinalysis - C+S If Indicated (05/08/17 18:05) Influenzae A/B Antigen (05/08/17 18:05) Blood Culture (05/08/17 18:05) Ed Urine Pregnancytest Poc (05/08/17 18:05) Mri C Spine W&W/O Contrast (05/08/17 ) Mri T Spine W & W/O Contrast (05/08/17 ) Mri L Spine W&W/O Contrast (05/08/17 ) Sodium Chlor 0.9% 1000 Ml Inj (Ns 1000 M (05/08/17 18:05) Urine Culture (2/9/18 18:20) Ed Discharge Order (05/08/17 21:51) Sulfamet-Trimeth Ds 800-160 Mg (Bactrim (05/08/17 22:00) Gadodiamide Pf Inj (Omniscan Pf Inj) (05/08/17 22:19) Labs Laboratory Tests Test 05/08/17 18:20 White Blood Count 6.6 TH/MM3 Red Blood Count 5.00 MIL/MM3 Hemoglobin 8.8 GM/DL Hematocrit 27.6 % Mean Corpuscular Volume 55.1 FL Mean Corpuscular Hemoglobin 17.6 PG Mean Corpuscular Hemoglobin Concent 31.9 % Red Cell Distribution Width 18.5 % Platelet Count 522 TH/MM3 Mean Platelet Volume 8.3 FL Neutrophils (%) (Auto) 64.4 % Lymphocytes (%) (Auto) 25.2 % Monocytes (%) (Auto) 6.8 % Eosinophils (%) (Auto) 3.3 % Basophils (%) (Auto) 0.3 % Neutrophils # (Auto) 4.2 TH/MM3 Lymphocytes # (Auto) 1.7 TH/MM3 Monocytes # (Auto) 0.4 TH/MM3 Eosinophils # (Auto) 0.2 TH/MM3 Basophils # (Auto) 0.0 TH/MM3 CBC Comment DIFF FINAL Differential Comment Urine Color YELLOW Urine Turbidity HAZY Urine pH 6.0 Urine Specific [place] 1.017 Urine Protein TRACE mg/dL Urine Glucose (UA) NEG mg/dL Urine Ketones NEG mg/dL Urine Occult Blood SMALL Urine Nitrite NEG Urine Bilirubin NEG Urine Urobilinogen 2.0 MG/DL Urine Leukocyte Esterase LARGE Urine RBC 5 /hpf Urine WBC 5 /hpf Urine Squamous Epithelial Cells 5 /hpf Urine Bacteria RARE /hpf Urine Mucus MANY /lpf Microscopic Urinalysis Comment CATH-CULTURE IND Blood Urea Nitrogen 10 MG/DL Creatinine 0.78 MG/DL Random Glucose 92 MG/DL Total Protein 7.6 GM/DL Albumin 2.4 GM/DL Calcium Level 8.4 MG/DL Magnesium Level 2.4 MG/DL Alkaline Phosphatase 88 U/L Aspartate Amino Transf (AST/SGOT) 18 U/L Alanine Aminotransferase (ALT/SGPT) 14 U/L Total Bilirubin 0.2 MG/DL Sodium Level 139 MEQ/L Potassium Level 3.6 MEQ/L Chloride Level 102 MEQ/L Carbon Dioxide Level 31.4 MEQ/L Anion Gap 6 MEQ/L Estimat Glomerular Filtration Rate 80 ML/MIN Lactic Acid Level 1.0 mmol/L MDM Medical Decision Making Medical Screen Exam Complete: Yes Emergency Medical Condition: Yes Medical Record Reviewed: Yes Differential Diagnosis Chronic neck pain versus radiculopathy versus osteomyelitis versus epidural abscess versus sepsis Narrative Course Lab work, urinalysis, blood cultures have been ordered. MRI of the cervical/ thoracic/lumbar spine with contrast has been ordered. At the end of my shift the patient was signed out to the oncoming provider pending lab work and imaging studies. Scripts Sulfamethoxazole-Trimethoprim (Bactrim DS) 800-160 Mg Tab 1 TAB PO BID for Infection, #14 TAB 0 Refills Prov: Mendez Fink MD 05/08/17 Larry Edgar May 08, 2017 18:13
[2017-05-08 18:53] LABS: BILIRUBIN, URINE NEG (NEG); BLOOD, URINE SMALL (NEG); GLUCOSE,URINE NEG (NEG); KETONE, URINE NEG (NEG); MUCUS URINE MANY /lpf (OCC); NITRITE,URINE NEG (NEG); SQUAMOUS EPITHELIAL CELL URINE 5 /hpf (0-5); URINE COLOR YELLOW (YELLW/STRAW); URINE LEUKOCYTE ESTERASE LARGE (NEG)
[2017-05-08 18:55] LABS: BACTERIA, URINE RARE /hpf
[2017-05-08 19:02] LABS: ALBUMIN 2.4 GM/DL (3.4-5.0); AST (GOT) 18 U/L (15-37); BICARBONATE 31.4 MEQ/L (21.0-32.0); BLOOD UREA NITROGEN 10 MG/DL (7-18); CALCIUM 8.4 MG/DL (8.5-10.1); CHLORIDE 102 MEQ/L (98-107); CREATININE 0.78 MG/DL (0.50-1.00); GLOMERULAR FILTRATION RATE 80 ML/MIN (>89); GLUCOSE,RANDOM 92 MG/DL (74-106); MAGNESIUM 2.4 MG/DL (1.5-2.5); SODIUM (NA) 139 MEQ/L (136-145)
[2017-05-08 19:03] LABS: ALT (GPT) 14 U/L (10-53)
[2017-05-08 19:05] LABS: ALKALINE PHOSPHATASE 88 U/L (45-117); AUTOMATED NEUTROPHIL # 4.2 TH/MM3 (1.8-7.7); BASOPHIL % 0.3 % (0.0-2.0); EOSINOPHIL # 0.2 TH/MM3 (0-0.4); EOSINOPHIL % 3.3 % (0.0-4.0); HEMATOCRIT 27.6 % (35.0-46.0); HEMOGLOBIN 8.8 GM/DL (11.6-15.3); LYMPH % 25.2 % (9.0-44.0); LYMPHOCYTE # 1.7 TH/MM3 (1.0-4.8); MEAN CELL VOLUME 55.1 FL (80.0-100.0); MEAN CORPUSCULAR HEMOGLOBIN 17.6 PG (27.0-34.0); MEAN CORPUSCULAR HGB CONC 31.9 % (32.0-36.0); MEAN PLATELET VOLUME 8.3 FL (7.0-11.0); MONO % 6.8 % (0.0-8.0); MONOCYTE # 0.4 TH/MM3 (0-0.9); NEUT % 64.4 % (16.0-70.0); PLATELET COUNT 522 TH/MM3 (150-450); RED CELL DISTRIBUTION WIDTH 18.5 % (11.6-17.2); TOTAL BILIRUBIN ADULT 0.2 MG/DL (0.2-1.0); TOTAL PROTEIN 7.6 GM/DL (6.4-8.2); WHITE BLOOD COUNT 6.6 TH/MM3 (4.0-11.0)
--- NOTE | 2017-05-08 21:19 | RADRPT ---
EXAM DATE/TIME: 05/08/2017 19:42 [facility] COMPARISON: MRI LUMBAR SPINE W & W/O CONTRAST, May 28, 2016, 16:42. INDICATIONS : Osteomyelitis. CONTRAST: 10 cc Omniscan (gadodiamide) IV MEDICAL HISTORY : IVDA. SURGICAL HISTORY : Fusion, cervical. ENCOUNTER: Initial ACUITY: 1 day PAIN SCORE: 0/10 LOCATION: Paraspinal TECHNIQUE: Multiplanar multisequence MRI of the thoracic spine was performed. FINDINGS: VERTEBRA: Normal vertebral body height. Homogeneous marrow signal. There is some mild primary degenerative fátima nges of the thoracic spine. No compression fracture injuries are demonstrated. No abnormal bone marro w edema is demonstrated. No abnormal edema is seen in the disc spaces. There is no paraspinal soft ti ssue swelling. ALIGNMENT: Normal. CORD: There is increased abnormal signal within the body the cord extending from T8 to approximate T11. Pos sible syrinx within the cord. POST CONTRAST: No abnormal areas of contrast enhancement seen. T1-T2: Normal. T2-T3: The thecal sac has a normal diameter. No evidence of disc bulge or protrusion. T3-T4: The thecal sac has a normal diameter. No evidence of disc bulge or protrusion. T4-T5: The thecal sac has a normal diameter. No evidence of disc bulge or protrusion. T5-T6: The thecal sac has a normal diameter. No evidence of disc bulge or protrusion. T6-T7: The thecal sac has a normal diameter. No evidence of disc bulge or protrusion. T7-T8: The thecal sac has a normal diameter. No evidence of disc bulge or protrusion. T8-T9: The thecal sac has a normal diameter. No evidence of disc bulge or protrusion. T9-T10: Small focal central disc protrusion with a disc osteophyte complex. The neural foramina are patent bi laterally. T10-T11: The thecal sac has a normal diameter. No evidence of disc bulge or protrusion. T11-T12: The thecal sac has a normal diameter. No evidence of disc bulge or protrusion. T12-L1: The thecal sac has a normal diameter. No evidence of disc bulge or protrusion. CONCLUSION: 1. No evidence of osteomyelitis or discitis. 2. Mild primary degenerative changes are seen involving the thoracic spine. 3. Small focal central disc protrusion with disc osteophyte operative T9-T10 4. Abnormal increased signal within the body of the spinal cord from T8 to approximate T11 possibly r epresenting a syrinx Steven Dhillon MD on May 08, 2017 at 21:09 Board Certified Radiologist. This report was verified electronically.
--- NOTE | 2017-05-08 21:27 | RADRPT ---
EXAM DATE/TIME: 05/08/2017 19:42 [facility] COMPARISON: CT CERVICAL SPINE W/O CONTRAST, November 29, 2016, 11:22. MRI CERVICAL SPINE W & W/O CONTRAST, Nov, 16:40. INDICATIONS : Osteomyelitis. CONTRAST: 10 cc Omniscan (gadodiamide) IV MEDICAL HISTORY : IVDA. SURGICAL HISTORY : Fusion, cervical. ENCOUNTER: Initial ACUITY: 1 day PAIN SCORE: 5/10 LOCATION: Paraspinal TECHNIQUE: Multiplanar, multisequence MRI examination of the cervical spine was performed. FINDINGS: VERTEBRAE: There is stable deformity involving the cervical spine when compared to the prior CT scan of 11/29/2016 . There is angulation of the upper cervical spine at C3-C4 with prominent reverse lordosis. There is evidence of prior fusion with a anterior fixation plate at C4-5. There appears to be solid bony fusio n at C6-7. There are degenerative changes involving the cervical spine. No abnormal bone marrow edema is demonstrated. No abnormal disc edema seen. CORD: There is some increased signal in the body the cord from approximately C4 to approximately C6. Sugges tive of myelopathy. POST FOSSA: The cerebellar tonsils are normal in position. POST-CONTRAST: No abnormal areas of enhancement are seen. C2-C3: The thecal sac has a normal configuration. There is no evidence of disc herniation or spinal canal stenosis. The neural foramina are patent bilaterally. C3-C4: The thecal sac has a normal configuration. There is no evidence of disc herniation or spinal canal s tenosis. The neural foramina are patent bilaterally. C4-C5: The thecal sac has a normal configuration. There is no evidence of disc herniation or spinal canal s tenosis. The neural foramina are patent bilaterally. C5-C6: The thecal sac has a normal configuration. There is no evidence of disc herniation or spinal canal s tenosis. The neural foramina are patent bilaterally. C6-C7: The thecal sac has a normal configuration. There is no evidence of disc herniation or spinal canal s tenosis. The neural foramina are patent bilaterally. C7-T1: The thecal sac has a normal configuration. There is no evidence of disc herniation or spinal canal s tenosis. The neural foramina are patent bilaterally. CONCLUSION: 1. No evidence of discitis or osteomyelitis. 2. Stable deformity of the cervical spine with prominent reverse lordosis. 3. Postsurgical changes consisting of anterior cervical fusion at C4-5 with an anterior fixation plat e. There appears to be solid bony fusion at C6-7. 4. There is some increased signal within the body of the cord suggestive of myelopathy from approxima tely C4 to C6. Steven Dhillon MD on May 08, 2017 at 21:17 Board Certified Radiologist. This report was verified electronically.
--- NOTE | 2017-05-08 21:33 | RADRPT ---
EXAM DATE/TIME: 05/08/2017 19:42 [facility] COMPARISON: MRI LUMBAR SPINE W & W/O CONTRAST, May 28, 2016, 16:42. INDICATIONS : Osteomyelitis. CONTRAST: 10 cc Omniscan (gadodiamide) IV MEDICAL HISTORY : IVDA. SURGICAL HISTORY : Fusion, cervical. ENCOUNTER: Initial ACUITY: 1 day PAIN SCORE: 0/10 LOCATION: Paraspinal TECHNIQUE: Multiplanar multisequence MRI of the lumbar spine was performed with and without contrast. FINDINGS: The most caudal appearing lumbar vertebra is numbered as L5. VERTEBRAE: Homogeneous signal. Normal alignment. No compression fracture injuries are demonstrated. No abnormal bone marrow edema is demonstrated. There is disc degeneration with disc space narrowing at L4-5. CONUS: Normal level and configuration. POST CONTRAST: No abnormal areas of contrast enhancement are seen. T12-L1: The thecal sac has a normal diameter. No evidence of disc bulge or protrusion. The neural foramina are patent bilaterally. L1-L2: The thecal sac has a normal diameter. No evidence of disc bulge or protrusion. The neural foramina are patent bilaterally. L2-L3: The thecal sac has a normal diameter. No evidence of disc bulge or protrusion. The neural foramina are patent bilaterally. Bilateral facet arthritis. L3-L4: The thecal sac has a normal diameter. No evidence of disc bulge or protrusion. The neural foramina are patent bilaterally. L4-L5: Mild broad-based bulging. Mild narrowing of the neural foramina.. Bilateral facet arthritis. L5-S1: Mild broad-based bulging. The neural foramina are patent bilaterally. Bilateral facet arthritis. CONCLUSION: 1. No evidence of osteomyelitis or discitis. 2. Disc degeneration with disc space narrowing at L4-5. 3. Broad-based bulging at L4-5 and L5-S1. 4. Bilateral facet arthritis at multiple levels. Steven Dhillon MD on May 08, 2017 at 21:27 Board Certified Radiologist. This report was verified electronically.
[2017-05-08] MEDS ORDERED: BACT800T5 PO (21:51)
--- NOTE | 2017-05-08 21:51 | PD ---
Data Data Last Documented VS Vital Signs Date Time Temp Pulse Resp B/P (MAP) Pulse Ox O2 Delivery O2 Flow Rate FiO2 05/08/17 18:04 17 05/08/17 14:46 98.4 96 113/68 (83) 98 Orders Orders Sepsis Workup Initiated (05/08/17 ) Complete Blood Count With Diff (05/08/17 18:05) Comprehensive Metabolic Panel (05/08/17 18:05) Lactic Acid Sepsis Protocol (05/08/17 18:05) Magnesium (Mg) (05/08/17 18:05) Urinalysis - C+S If Indicated (05/08/17 18:05) Influenzae A/B Antigen (05/08/17 18:05) Blood Culture (05/08/17 18:05) Ed Urine Pregnancytest Poc (05/08/17 18:05) Mri C Spine W&W/O Contrast (05/08/17 ) Mri T Spine W & W/O Contrast (05/08/17 ) Mri L Spine W&W/O Contrast (05/08/17 ) Sodium Chlor 0.9% 1000 Ml Inj (Ns 1000 M (05/08/17 18:05) Urine Culture (05/08/17 18:20) Labs Laboratory Tests Test 05/08/17 18:20 White Blood Count 6.6 TH/MM3 Red Blood Count 5.00 MIL/MM3 Hemoglobin 8.8 GM/DL Hematocrit 27.6 % Mean Corpuscular Volume 55.1 FL Mean Corpuscular Hemoglobin 17.6 PG Mean Corpuscular Hemoglobin Concent 31.9 % Red Cell Distribution Width 18.5 % Platelet Count 522 TH/MM3 Mean Platelet Volume 8.3 FL Neutrophils (%) (Auto) 64.4 % Lymphocytes (%) (Auto) 25.2 % Monocytes (%) (Auto) 6.8 % Eosinophils (%) (Auto) 3.3 % Basophils (%) (Auto) 0.3 % Neutrophils # (Auto) 4.2 TH/MM3 Lymphocytes # (Auto) 1.7 TH/MM3 Monocytes # (Auto) 0.4 TH/MM3 Eosinophils # (Auto) 0.2 TH/MM3 Basophils # (Auto) 0.0 TH/MM3 CBC Comment DIFF FINAL Differential Comment Urine Color YELLOW Urine Turbidity HAZY Urine pH 6.0 Urine Specific [place] 1.017 Urine Protein TRACE mg/dL Urine Glucose (UA) NEG mg/dL Urine Ketones NEG mg/dL Urine Occult Blood SMALL Urine Nitrite NEG Urine Bilirubin NEG Urine Urobilinogen 2.0 MG/DL Urine Leukocyte Esterase LARGE Urine RBC 5 /hpf Urine WBC 5 /hpf Urine Squamous Epithelial Cells 5 /hpf Urine Bacteria RARE /hpf Urine Mucus MANY /lpf Microscopic Urinalysis Comment CATH-CULTURE IND Blood Urea Nitrogen 10 MG/DL Creatinine 0.78 MG/DL Random Glucose 92 MG/DL Total Protein 7.6 GM/DL Albumin 2.4 GM/DL Calcium Level 8.4 MG/DL Magnesium Level 2.4 MG/DL Alkaline Phosphatase 88 U/L Aspartate Amino Transf (AST/SGOT) 18 U/L Alanine Aminotransferase (ALT/SGPT) 14 U/L Total Bilirubin 0.2 MG/DL Sodium Level 139 MEQ/L Potassium Level 3.6 MEQ/L Chloride Level 102 MEQ/L Carbon Dioxide Level 31.4 MEQ/L Anion Gap 6 MEQ/L Estimat Glomerular Filtration Rate 80 ML/MIN Lactic Acid Level 1.0 mmol/L MDM Supervised Visit with SHELTON: Yes Narrative Course I, Dr. Fink, have reviewed the advance practice practitioner's documentation and am in agreement, met with the patient face to face, made the diagnosis, and the medical decision making was done by me. See his note for further details. Briefly this is a 46-year-old female with history of IV drug abuse, last used in October 2016, osteomyelitis/discitis/epidural abscess in the cervical spine in July of last year, here for evaluation of neck pain with paresthesias in her fingers. On exam the patient is very comfortable and has no focal deficits. She has normal muscle strength in all 4 extremities. She reports that she had a fever yesterday, however she is afebrile here. Her labs are remarkable for anemia with a hemoglobin of 8.8 which is around her baseline and this appears to be a microcytic anemia. Her CMP is remarkable for an albumin of 2.4, otherwise unremarkable. Lactic acid is 1.0. UA is suggestive of UTI. The patient will be started on Bactrim DS. MRI C-spine: CONCLUSION: 1. No evidence of discitis or osteomyelitis. 2. Stable deformity of the cervical spine with prominent reverse lordosis. 3. Postsurgical changes consisting of anterior cervical fusion at C4-5 with an anterior fixation plate. There appears to be solid bony fusion at C6-7. 4. There is some increased signal within the body of the cord suggestive of myelopathy from approximately C4 to C6. MRI T-spine: CONCLUSION: 1. No evidence of osteomyelitis or discitis. 2. Mild primary degenerative changes are seen involving the thoracic spine. 3. Small focal central disc protrusion with disc osteophyte operative T9-T10 4. Abnormal increased signal within the body of the spinal cord from T8 to approximate T11 possibly representing a syrinx MRI L-spine: CONCLUSION: 1. No evidence of osteomyelitis or discitis. 2. Disc degeneration with disc space narrowing at L4-5. 3. Broad-based bulging at L4-5 and L5-S1. 4. Bilateral facet arthritis at multiple levels. Patient was made aware of all findings. She is resting comfortably. At this point she is stable for discharge home with outpatient follow-up with a primary care physician and her neurosurgeon Dr. Oliver in this week. She was advised on when to return to the emergency department. She'll be started on Bactrim DS for her UTI. She verbalizes understanding and agreement with plan. Diagnosis Primary Impression: UTI (urinary tract infection) Qualified Codes: N39.0 - Urinary tract infection, site not specified Additional Impression: Chronic neck pain Referrals: Aravind Oliver MD 3 days Primary Care Physician 3 days Additional Instruction: Follow-up with a primary care physician this week. Follow-up with your neurosurgeon Dr. Oliver this week. Return to the emergency department for worsening symptoms or any other concerns. Scripts Sulfamethoxazole-Trimethoprim (Bactrim DS) 800-160 Mg Tab 1 TAB PO BID for Infection, #14 TAB 0 Refills Prov: Mendez Fink MD 05/08/17 Disposition: 01 DISCHARGE HOME Condition: Stable Mendez Fink MD May 08, 2017 21:51
[2017-05-08] MEDS ORDERED: SULFAMETHOXAZOLE-TRIMETHOPRIM DS 800-160 MG TAB PO ONE (22:00)
[2017-05-08] MEDS ORDERED: GADODIAMIDE PF 287 MG/ML 10 ML VIAL (for RAD MRI) IV PUSH ONE (22:19)
== END 2017-05-08 22:56 | disposition home or self-care (01) ==
LOC: NEPD 14:44
DX: N39.0 Urinary tract infection, site not specified (principal); M54.2 Cervicalgia; G89.29 Other chronic pain; M51.36 Other intervertebral disc degeneration, lumbar region; M51.34 Other intervertebral disc degeneration, thoracic region; D64.9 Anemia, unspecified; J45.909 Unspecified asthma, uncomplicated; I10 Essential (primary) hypertension
CPT/HCPCS: 72156; 72157; 72158; 80053; 81001; 83605; 83735; 84703; 85025; 87040; 87086; 87804; 96360; 96361; 99285; A9579; J7030

== ENCOUNTER 2017-10-25 15:22 | Inpatient (IN) ==
[2017-10-25] MEDS ORDERED: Tetanus/Diphtheria Toxoid Adult Vaccine Inj 0.5 ML Vial IM ONE (16:42)
[2017-10-25] MEDS ORDERED: Sod Chloride 0.9% Inj 1,000 ML IV.SIG ONE (16:42)
[2017-10-25] MEDS ORDERED: Lidocaine 1% Inj 50 ML Vial INFILTRATN ONE (16:42)
[2017-10-25] MEDS ORDERED: Vancomycin Inj 1 GM/200 ML PIGGYBACK IV.SIG ONE (17:15)
[2017-10-25 17:47] LABS: Baso % (Auto) 0.3 % (0.0-2.0); Eos # (Auto) 0.1 th/mm3 (0.0-0.4); Eos % (Auto) 1.2 % (0.0-4.0); Hematocrit 22.6 % (35.0-46.0); Lymph # (Auto) 1.3 th/mm3 (1.0-4.8); Lymph % (Auto) 15.7 % (9.0-44.0); Mean Corpuscular Hemoglobin 17.2 pg (27.0-34.0); Mean Corpuscular Volume 55.6 fL (80.0-100.0); Mean Platelet Volume 8.6 fL (7.0-11.0); Mono # (Auto) 0.5 th/mm3 (0.0-0.9); Mono % (Auto) 5.8 % (0.0-8.0); Neut # (Auto) 6.3 th/mm3 (1.8-7.7); Platelet Count 308 th/mm3 (150-450); Red Blood Count 4.06 mil/mm3 (4.00-5.30); Red Cell Distribution Width 20.8 % (11.6-17.2); White Blood Count 8.2 th/mm3 (4.0-11.0)
[2017-10-25 17:48] LABS: Anion Gap 5 meq/L (5-15); Aspartate Aminotransferase 31 U/L (15-37); Blood Urea Nitrogen 14 mg/dL (7-18); Calcium 8.5 mg/dL (8.5-10.1); Carbon Dioxide 27.8 meq/L (21.0-32.0); Chloride 103 meq/L (98-107); Glomerular Filtration Rate 82 mL/min (>89); Glucose,Random 127 mg/dL (74-106); Sodium 136 meq/L (136-145)
[2017-10-25] MEDS ORDERED: Lidocaine 1%/Epinephrine 1:100,000 Inj 50 ML Vial ONE (17:50)
[2017-10-25 17:52] LABS: Alanine Aminotransferase 13 U/L (10-53); Alkaline Phosphatase 103 U/L (45-117); Total Protein 8.4 g/dL (6.4-8.2)
[2017-10-25] MEDS ORDERED: Vancomycin Inj 1,000 MG in Sodium Chlor 0.9% Inj 250 ML IV.SIG ONE (18:00)
[2017-10-25 18:22] LABS: Amphetamine Screen,Urine Neg (Neg); Barbiturate Screen,Urine Neg (Neg); Cannabinoid Screen,Urine Neg (Neg); Cocaine Screen,Urine Neg (Neg)
[2017-10-25 18:31] LABS: Opiate Screen,Urine Pos (Neg)
--- NOTE | 2017-10-25 18:37 | ED ---
HPI General Chief complaint: Skin/Abscess/Foreign Body Stated complaint: neck problem Time Seen by Provider: 10/25/17 16:40 Source: patient and family Mode of arrival: ambulatory Limitations: no limitations History of Present Illness HPI narrative: 47-year-old female that presents to the ED for evaluation of skin lesion, possible IV drug abuse as well as psychiatric illness. Per family and patient she has a history of picking at her skin. Apparently she had some surgery on her neck for neck fusion in 2010 and ever since she was started on opiates and she became addicted to them. She has been fighting addiction on and off since. She apparently has continued to use until the past 6 months were she for the most part has been clean per patient but there has been some episodes where she apparently has been found with drug paraphernalia and needles per . He is highly concerned that she still using as he has noted significant changes in her behavior. Apparently she does have a history of picking her skin but she has been picking out a lesion on her neck. She has apparently done this so for about 3 months now and the lesion has not released in size. She has a significant area of lost skin on the neck with almost muscle and fatty tissue noted. Some of it appears to be new. She also appears to have an area of redness. Patient denies any pain. She herself denies any use. Apparently the family had intervention today because there are concern about her and they brought her here for evaluation of the neck as well as possible psychiatric evaluation. Related Data Home Medications Medication Instructions Recorded Confirmed cyclobenzaprine 10 mg PO TID 10/25/17 10/25/17 morphine 30 mg PO Q12H 10/25/17 10/25/17 oxycodone-acetaminophen [Percocet] 1 tab PO Q4-6H PRN 10/25/17 10/25/17 Allergies Allergy/AdvReac Type Severity Reaction Status Date / Time penicillin G Allergy Intermediate Rash Verified 10/25/17 16:34 chemical allergy Allergy Severe anaphalacti Uncoded 09/27/12 00:06 c Review of Systems ROS Unobtainable All other systems reviewed negative except as stated in HPI PMFSH Surgical History Surgical History H/O spinal fusion (Acute) Social History Social History (Reviewed 10/25/17 @ 22:38 by ДМИТРИЙ Bledsoe Substance History: Past History Smoking Status: Heavy tobacco smoker Tobacco Type: Cigarettes How Often Do You Have a Drink Containing Alcohol: Never Recent Travel in [place] within the Last 8 Weeks: No Recent Out of Country Travel within the Last 8 Weeks: No Immunization History Tetanus Immunization: Unsure Hx Influenza Vaccine This Season: No Exam Narrative Exam Narrative: GENERAL: Somewhat disheveled SKIN: Focused skin assessment warm/dry. Patient has an area of loss of skin on the back of the neck about almost 10 cm in length with fatty tissue as well as what appears to be muscle involvement. It looks like basically the skin has been peeled off. She does have an area of erythema on the right side of the neck. Warm to the touch. No obvious drainage from the neck. No foul smell can be smell. Some serosanguineous fluid coming out of the neck. HEAD: Atraumatic. Normocephalic. EYES: Pupils equal and round. No scleral icterus. No injection or drainage. ENT: No nasal bleeding or discharge. Mucous membranes pink and moist. NECK: Trachea midline. No JVD. CARDIOVASCULAR: Regular rate and rhythm. No murmur appreciated. RESPIRATORY: No accessory muscle use. Clear to auscultation. Breath sounds equal bilaterally. GASTROINTESTINAL: Abdomen soft, non-tender, nondistended. Hepatic and splenic margins not palpable. MUSCULOSKELETAL: No obvious deformities. No clubbing. No cyanosis. No edema. Full range of motion of the upper and lower extremities bilaterally. 2+ pulses bilaterally. NEUROLOGICAL: Awake and alert. No obvious cranial nerve deficits. Motor grossly within normal limits. Normal speech. PSYCHIATRIC: Appropriate mood and affect; insight and judgment normal. Course Initial Documented Vital Signs Temperature 99.5 F 10/25/17 15:44 Pulse Rate 138 H 10/25/17 15:44 Respiratory Rate 20 10/25/17 15:44 Blood Pressure 137/82 10/25/17 15:44 Pulse Oximetry 95 10/25/17 15:44 Last Documented Vital Signs Temperature 99.5 F 10/25/17 15:44 Pulse Rate 138 H 10/25/17 15:44 Respiratory Rate 20 10/25/17 15:44 Blood Pressure 137/82 10/25/17 15:44 Pulse Oximetry 95 10/25/17 15:44 Medical Decision Making SHELTON Attestation SHELTON supervised visit: Yes Attestation: I, Dr. Stanley, have reviewed the advance practice practitioner's documentation and am in agreement, met with the patient face to face, made the diagnosis, and the medical decision making was done by me. *My assessment and Findings: This patient has an impressive area of tissue loss in the back of her neck. She is continually picking at it. It has been going on for many months. At this point I think it will require admission and IV antibiotics and possibly some consideration of plastic surgery evaluation for skin graft. However her psychiatric illness will need to be treated as well as even despite staff telling her multiple times she continues to pick at it even sitting here in the emergency room. MDM Narrative Medical decision making narrative: 47-year-old female that presents to the ED for evaluation of skin lesion on the neck and psychiatric eval. Patient was properly examined and was found to have signs and symptoms consistent with a significant loss of skin to the neck. Appears the patient has a history of picking at her skin. The amount of skin she has picked to her neck is significant. There is almost muscle involved. No obvious bone noted. There is some erythema that is concerning for infection. There is concern for osteomyelitis as patient has had some apparently alterations. This appears to be likely psychiatric in nature but cannot rule out sepsis. Labs and imaging order. Labs and imaging were essentially unremarkable other than elevated ESR, CRP. MRI did not show any signs of osteomyelitis or abscess. At this time recommendations for IV antibiotics and admission for further evaluation. Patient will require psychiatric evaluation as she will require help her stop doing this as well as further evaluation of the wound on the neck which might require plastic surgeon involvement or wound care involvement. My attending agrees with plan. Case discussed with Dr. Dillon who agrees with admission. Differential Diagnosis Differential Diagnosis: Skin lesion versus infected wound versus osteomyelitis versus psychiatric disease versus SPD versus cellulitis versus anxiety versus overdose versus drug use Medical Records Medical records reviewed: Yes I reviewed the patient's medical records. POC Test Results POC Urine Results: Negative Lab Data Lab results reviewed: Yes I reviewed the patient's lab results. Result diagrams: 10/25/17 17:05 10/25/17 17:05 Lab Results 10/25/17 10/25/17 10/25/17 Range/Units 17:05 17:05 17:05 WBC 8.2 (4.0-11.0) th/mm3 RBC 4.06 (4.00-5.30) mil/mm3 Hgb 7.0 L (11.6-15.3) gm/dL Hct 22.6 L (35.0-46.0) % MCV 55.6 L (80.0-100.0) fL MCH 17.2 L (27.0-34.0) pg MCHC 31.0 L (32.0-36.0) % RDW 20.8 H (11.6-17.2) % Plt Count 308 (150-450) th/mm3 MPV 8.6 (7.0-11.0) fL Neut % (Auto) 77.0 H (16.0-70.0) % Lymph % (Auto) 15.7 (9.0-44.0) % [place] % (Auto) 5.8 (0.0-8.0) % Eos % (Auto) 1.2 (0.0-4.0) % Baso % (Auto) 0.3 (0.0-2.0) % Neut # (Auto) 6.3 (1.8-7.7) th/mm3 Lymph # (Auto) 1.3 (1.0-4.8) th/mm3 [place] # (Auto) 0.5 (0.0-0.9) th/mm3 Eos # (Auto) 0.1 (0.0-0.4) th/mm3 Baso # (Auto) 0.0 (0.0-0.2) th/mm3 WBC Differential . Differential Comment Auto diff final ESR (0-20) mm/hr Sodium 136 (136-145) meq/L Potassium 4.0 (3.5-5.1) meq/L Chloride 103 (98-107) meq/L Carbon Dioxide 27.8 (21.0-32.0) meq/L Anion Gap 5 (5-15) meq/L BUN 14 (7-18) mg/dL Creatinine 0.76 (0.50-1.00) mg/dL Estimated GFR 82 L (>89) mL/min Random Glucose 127 H (74-106) mg/dL Lactic Acid 1.1 (0.4-2.0) mmol/L Calcium 8.5 (8.5-10.1) mg/dL Total Bilirubin 0.5 (0.2-1.0) mg/dL AST 31 (15-37) U/L ALT 13 (10-53) U/L Alkaline Phosphatase 103 (45-117) U/L C-Reactive Protein (0.00-0.30) mg/dL Total Protein 8.4 H (6.4-8.2) g/dL Albumin 3.0 L (3.4-5.0) g/dL Urine Opiates Screen (Neg) Ur Barbiturates Screen (Neg) Ur Amphetamines Screen (Neg) U Benzodiazepines Scrn (Neg) Urine Cocaine Screen (Neg) U Cannabinoids Screen (Neg) 10/25/17 10/25/17 10/25/17 Range/Units 17:05 17:05 17:26 WBC (4.0-11.0) th/mm3 RBC (4.00-5.30) mil/mm3 Hgb (11.6-15.3) gm/dL Hct (35.0-46.0) % MCV (80.0-100.0) fL MCH (27.0-34.0) pg MCHC (32.0-36.0) % RDW (11.6-17.2) % Plt Count (150-450) th/mm3 MPV (7.0-11.0) fL Neut % (Auto) (16.0-70.0) % Lymph % (Auto) (9.0-44.0) % [place] % (Auto) (0.0-8.0) % Eos % (Auto) (0.0-4.0) % Baso % (Auto) (0.0-2.0) % Neut # (Auto) (1.8-7.7) th/mm3 Lymph # (Auto) (1.0-4.8) th/mm3 [place] # (Auto) (0.0-0.9) th/mm3 Eos # (Auto) (0.0-0.4) th/mm3 Baso # (Auto) (0.0-0.2) th/mm3 WBC Differential Differential Comment ESR Greater than 140 H (0-20) mm/hr Sodium (136-145) meq/L Potassium (3.5-5.1) meq/L Chloride (98-107) meq/L Carbon Dioxide (21.0-32.0) meq/L Anion Gap (5-15) meq/L BUN (7-18) mg/dL Creatinine (0.50-1.00) mg/dL Estimated GFR (>89) mL/min Random Glucose (74-106) mg/dL Lactic Acid (0.4-2.0) mmol/L Calcium (8.5-10.1) mg/dL Total Bilirubin (0.2-1.0) mg/dL AST (15-37) U/L ALT (10-53) U/L Alkaline Phosphatase (45-117) U/L C-Reactive Protein 20.00 H (0.00-0.30) mg/dL Total Protein (6.4-8.2) g/dL Albumin (3.4-5.0) g/dL Urine Opiates Screen Pos H (Neg) Ur Barbiturates Screen Neg (Neg) Ur Amphetamines Screen Neg (Neg) U Benzodiazepines Scrn Neg (Neg) Urine Cocaine Screen Neg (Neg) U Cannabinoids Screen Neg (Neg) Imaging Data Attestation: I personally reviewed and interpreted this imaging study as follows : Radiologist's impression: Cervical Spine MRI 10/25/17 17:07 CONCLUSION: 1. Large soft tissue defect posteriorly extending from just below the skull base to C7-T1 with extensive involvement subcutaneous tissues without deep space abscess or obvious dural involvement within the cervical cord. 2. I don't see a evidence for osteomyelitis in the vertebral bodies. 3. Spinous processes may be exposed. 4. Correlation with plain films and noncontrast CT scan would be of benefit. Discharge Plan Discharge Disposition Patient Disposition: 30 Still Patient Discharge Details Diagnosis: Infected open wound, Compulsive skin picking, Polysubstance abuse Physicians Team ED Provider: Oral Stanley ED Midlevel Provider: Tigre Zamorano Primary Care Provider: Veronique Welsh Attending Provider: Jeanne Dillon Discharge Interventions Interventions: Vital Signs Last Done: 10/25/17 19:52 Status ED Status: Admitted Patient
[2017-10-25] MEDS ORDERED: Gadobutrol PF 7.5 MMOL/7.5 ML Vial (for RAD) IV.SIG ONE (21:19)
--- NOTE | 2017-10-25 22:06 | MR ---
EXAM DATE: 10/25/2017 9:44 PM EDT AGE/SEX: 47 years / Female INDICATIONS: Abscess. CLINICAL DATA: This is the patient's initial encounter. Patient reports that signs and symptoms have been present for 1 month and indicates a pain score of 6/10. MEDICAL/SURGICAL HISTORY: . Endocarditis. Fusion, cervical. Abscess removal COMPARISON: [facility] [place] [facility] 07/01/2014. . TECHNIQUE: Multiplanar, multisequence MRI examination of the cervical spine was performed without an d with 7 ml Omniscan (gadodiamide) contrast as a single exam dose. FINDINGS: Exaggerated lordosis of the cervical spine with previous anterior cervical fusion of believe C4-C5. T he marrow signal in the anterior vertebral body appears homogeneous with exception of where the plate is. There is a large soft tissue defect posteriorly in the soft tissues of the neck that extends phoebe n to the erector spinae muscle from approximatelyC2-T1. I don't see a deep space abscess. I don't see evidence for osteomyelitis in the spinous process. The signal intensity in the cervical cord appears normal. Following intravenous administration of con trast there is extensive enhancement in the soft tissues posteriorly in the neck including the erecto r spinae muscles. I don't see an obvious epidural abscess. CONCLUSION: 1. Large soft tissue defect posteriorly extending from just below the skull base to C7-T1 with exten sive involvement subcutaneous tissues without deep space abscess or obvious dural involvement within the cervical cord. 2. I don't see a evidence for osteomyelitis in the vertebral bodies. 3. Spinous processes may be exposed. 4. Correlation with plain films and noncontrast CT scan would be of benefit. Electronically signed by: Austin Dang MD 10/25/2017 10:05 PM EDT
[2017-10-25] MEDS ORDERED: Bisacodyl 10 MG Supp RECTAL PRN (22:39)
--- NOTE | 2017-10-25 22:52 | P.HPIM ---
History of Present Illness Primary Care Physician: Veronique Welhs MD History of Present Illness: This is a 47-year-old female with a PMH of IVDU who was brought to the ER by for evaluation of neck wound and psych eval. Pt has apparently been picking at her neck for several months, causing a significant wound to her posterior neck. +ongoing IVDU. No reported fever or chills. On arrival, BP 137/82, HR 138, O2 sat 95% on RA, Temp 99.5. W BC normal. Hemoglobin 7.0. ESR >140. Chemistry essentially unremarkable except for GFR 82. CRP 20. Urine Drug Screen positive for Opiates. MRI C-Spine w/ large soft tissue defect posteriorly extending from skull base to C7-T1, extensive subcutaneous tissues without abscess or dural involvement, no osteomyelitis, spinous processes may be exposed. S/p Vanc in ER - Diagnosis (1) Open neck wound (2) Skin-picking disorder (3) IVDU (intravenous drug user) (4) Anemia Inpatient Certification: I certify that the inpatient services were ordered in accordance with Medicare regulations governing the order. This includes certification that hospital inpatient services are reasonable and necessary and in the case of services not specified as inpatient-only under 42 CFR 419.22(n), that they are appropriately provided as inpatient services in accordance to with the 2-midnight benchmark under 43 CFR 412.3(e) Estimated Total Length of Stay (Days): 2 Plans for Post Hospital Care: Not yet determined Review of Systems All other systems reviewed negative except as stated in [facility] - History History Provided By: Patient - Surgical History Surgical History: Surgical History (Last Reviewed 10/25/17 @ 22:38 by ARY Bledsoe) H/O spinal fusion - Tobacco History Tobacco Use In Past 30 Days: Yes Smoking Status: Heavy tobacco smoker Tobacco Type: Cigarettes - Alcohol History How Often Do You Have a Drink Containing Alcohol: Never - Substance Use History Substance History: Past History - Travel History Recent Travel in the [place] Within the Last 8 Weeks: No Recent Travel Out of the Country Within the Last 8 Weeks: No - Immunization History Tetanus Immunization: Unsure Hx Influenza Vaccine This Season: No Medications and Allergies Allergies Allergy/AdvReac Type Severity Reaction Status Date / Time penicillin G Allergy Intermediate Rash Verified 10/25/17 16:34 chemical allergy Allergy Severe anaphalacti Uncoded 09/27/12 00:06 c Home Medications Medication Instructions Recorded Confirmed Type cyclobenzaprine 10 mg PO TID 10/25/17 10/25/17 History morphine 30 mg PO Q12H 10/25/17 10/25/17 History oxycodone-acetaminophen [Percocet] 1 tab PO Q4-6H PRN 10/25/17 10/25/17 History Exam Vital signs: Vital Signs 10/25/17 15:44 10/25/17 19:52 Temperature 99.5 F Pulse Rate 138 H 78 Respiratory Rate 20 18 Blood Pressure 137/82 132/80 Pulse Oximetry 95 97 Intake & Output 10/25/17 10/25/17 10/26/17 06:59 18:59 06:59 Weight 58.967 kg Narrative: PE: GENERAL: Middle-aged white femur in no acute distress. Sleepy after getting Ativan for MRI HEENT: PERRLA, EOMI. No scleral icterus or conjunctival pallor. No lid lag or facial droop. CARDIOVASCULAR: Regular rate and rhythm. No obvious murmurs to auscultation. No chest tenderness to palpation. RESPIRATORY: No obvious rhonchi or wheezing. Clear to auscultation. Breath sounds equal bilaterally. GASTROINTESTINAL: Abdomen soft, non-tender, nondistended. BS normal. MUSCULOSKELETAL: Extremities without clubbing, cyanosis, or edema. No obvious deformities. Extensive posterior cervical wound, open, exposed muscle/tissue NEUROLOGICAL: Awake, alert and oriented x4. No focal neurologic deficits. Moving both upper and lower extremities spontaneously. Results - Labs CBC & Chem 7: 10/25/17 17:05 10/25/17 17:05 Labs: Short CBC 10/25/17 Range/Units 17:05 WBC 8.2 (4.0-11.0) th/mm3 Hgb 7.0 L (11.6-15.3) gm/dL Hct 22.6 L (35.0-46.0) % Plt Count 308 (150-450) th/mm3 BMP 10/25/17 17:05 Sodium 136 Potassium 4.0 Chloride 103 Carbon Dioxide 27.8 BUN 14 Creatinine 0.76 Calcium 8.5 Liver Function 10/25/17 Range/Units 17:05 Total Bilirubin 0.5 (0.2-1.0) mg/dL AST 31 (15-37) U/L ALT 13 (10-53) U/L Alkaline Phosphatase 103 (45-117) U/L Albumin 3.0 L (3.4-5.0) g/dL - Imaging Impressions Cervical Spine MRI 10/25/17 17:07 CONCLUSION: 1. Large soft tissue defect posteriorly extending from just below the skull base to C7-T1 with extensive involvement subcutaneous tissues without deep space abscess or obvious dural involvement within the cervical cord. 2. I don't see a evidence for osteomyelitis in the vertebral bodies. 3. Spinous processes may be exposed. 4. Correlation with plain films and noncontrast CT scan would be of benefit. Caprini VTE Risk Assessment Caprini VTE Risk Assessment: No/Low Risk (score <= 1) Caprini Risk Assessment Model: Point Value = 1 Point Value = 2 Point Value = 3 Point Value = 5 Age 41-60 Minor surgery BMI > 25 kg/m2 Swollen legs Varicose veins or History of unexplained or recurrent spontaneous Oral contraceptives or hormone replacement Sepsis (< 1 month) Serious lung disease, including pneumonia (< 1 month) Abnormal pulmonary function Acute myocardial infarction Congestive heart failure (< 1 month) History of inflammatory bowel disease Medical patient at bed rest Age 61-74 Arthroscopic surgery Major open surgery (> 45 min) Laparoscopic surgery (> 45 min) Malignancy Confined to bed (> 72 hours) Immobilizing plaster cast Central venous access Age >= 75 History of VTE Family history of VTE Factor V Leiden Prothrombin [id number] Lupus anticoagulant Anticardiolipin antibodies Elevated serum homocysteine Heparin-induced thrombocytopenia Other congenital or acquired thrombophilia Stroke (< 1 month) Elective arthroplasty Hip, pelvis, or leg fracture Acute spinal cord injury (< 1 month) Prophylaxis Regimen: Total Risk Factor Score Risk Level Prophylaxis Regimen 0-1 Low Early ambulation 2 Moderate Order ONE of the following: *Sequential Compression Device (SCD) *Heparin 5000 units SQ BID 3-4 Higher Order ONE of the following medications: *Heparin 5000 units SQ TID *Enoxaparin/Lovenox 40 mg SQ daily (WT < 150 kg, CrCl > 30 mL/min) *Enoxaparin/Lovenox 30 mg SQ daily (WT < 150 kg, CrCl > 10-29 mL/min) *Enoxaparin/Lovenox 30 mg SQ BID (WT < 150 kg, CrCl > 30 mL/min) AND/OR *Sequential Compression Device (SCD) 5 or more Highest Order ONE of the following medications: *Heparin 5000 units SQ TID (Preferred with Epidurals) *Enoxaparin/Lovenox 40 mg SQ daily (WT < 150 kg, CrCl > 30 mL/min) *Enoxaparin/Lovenox 30 mg SQ daily (WT < 150 kg, CrCl > 10-29 mL/min) *Enoxaparin/Lovenox 30 mg SQ BID (WT < 150 kg, CrCl > 30 mL/min) AND *Sequential Compression Device (SCD) Assessment and Plan - Assessment (1) Open neck wound Code(s): S11.90XA - Unspecified open wound of unspecified part of neck, initial encounter Status: Acute (2) Skin-picking disorder Code(s): F42.4 - Excoriation (skin-picking) disorder Status: Acute (3) IVDU (intravenous drug user) Code(s): F19.90 - Other psychoactive substance use, unspecified, uncomplicated Status: Acute (4) Anemia Code(s): D64.9 - Anemia, unspecified Status: Acute - Plan A/P: 1. Open Neck Wound: extensive posterior cervical wound from self-picking, + exposed muscle/tissue, MRI C-Spine w/ large soft tissue defect extending from skull base to C7-T1 with extensive involvement of subcutaneous tissues, no abscess or osteomyelitis, spinous processes may be exposed, images reviewed. S/ p Vanc, will continue w/ IV Abx, Vanc/Azactam/Flagyl, consult Plastic Surgery for further eval/surgical intervention, possibly Neurosurgery. 2. Skin Picking Disorder: Pt w/ compulsive skin picking resulting in above wound. Consult Psych for further eval/recommendations. 3. Anemia: Hgb 7.0, no active bleeding noted. Type & Screen, repeat Hgb/Hct, transfuse as needed 4. IVDU: Ongoing, Ativan prn for agitation/withdrawal 5. DVT Prophylaxis: SCD/Teds 6. Social work for d/c planning as needed 7. Case discussed w/ ER physician at length, labs/records/imaging reviewed by me.
[2017-10-25] MEDS: Aztreonam Inj 2 GM in Sodium Chloride 0.9% Inj 100 ML IV.SIG SCH (22:56)
[2017-10-25] MEDS: Sod Chloride 0.9% Inj 1,000 ML IV.CONT SCH (22:56)
[2017-10-25] MEDS ORDERED: Vancomycin Consult Pharmacy 1 EACH OTHER SCH (23:00)
[2017-10-25] MEDS ORDERED: Pharmacy Ordered Lab Info OTHER ONE (23:00)
[2017-10-26] MEDS: Vancomycin Inj 1,000 MG in Sodium Chlor 0.9% Inj 250 ML IV.SIG SCH ×2 (05:14→18:24)
[2017-10-26] MEDS: Aztreonam Inj 2 GM in Sodium Chloride 0.9% Inj 100 ML IV.SIG SCH ×3 (06:42→22:25)
[2017-10-26] MEDS: Senna/Docusate Sodium 8.6/50 MG Tablet PO SCH ×2 (08:39→20:26)
[2017-10-26 10:00] LABS: Baso % (Auto) 0.2 % (0.0-2.0); Eos # (Auto) 0.3 th/mm3 (0.0-0.4); Eos % (Auto) 4.9 % (0.0-4.0); Lymph # (Auto) 0.9 th/mm3 (1.0-4.8); Lymph % (Auto) 18.1 % (9.0-44.0); Mean Corpuscular Hemoglobin 17.6 pg (27.0-34.0); Mean Corpuscular Volume 56.6 fL (80.0-100.0); Mean Platelet Volume 8.4 fL (7.0-11.0); Mono # (Auto) 0.4 th/mm3 (0.0-0.9); Mono % (Auto) 8.1 % (0.0-8.0); Neut # (Auto) 3.6 th/mm3 (1.8-7.7); Neut % (Auto) 68.7 % (16.0-70.0); Platelet Count 271 th/mm3 (150-450); Red Blood Count 3.62 mil/mm3 (4.00-5.30); Red Cell Distribution Width 20.9 % (11.6-17.2); White Blood Count 5.3 th/mm3 (4.0-11.0)
[2017-10-26 10:10] LABS: Hematocrit 20.5 % (35.0-46.0); Hemoglobin 6.4 gm/dL (11.6-15.3)
[2017-10-26 10:19] LABS: Alanine Aminotransferase 10 U/L (10-53); Albumin 2.2 g/dL (3.4-5.0); Anion Gap 8 meq/L (5-15); Aspartate Aminotransferase 20 U/L (15-37); Blood Urea Nitrogen 9 mg/dL (7-18); Calcium 8.3 mg/dL (8.5-10.1); Carbon Dioxide 25.3 meq/L (21.0-32.0); Chloride 107 meq/L (98-107); Glomerular Filtration Rate Greater Than 89 mL/min (>89); Glucose,Random 88 mg/dL (74-106); Potassium 3.5 meq/L (3.5-5.1); Sodium 140 meq/L (136-145)
[2017-10-26 10:23] LABS: Alkaline Phosphatase 84 U/L (45-117); Total Protein 6.9 g/dL (6.4-8.2)
[2017-10-26] MEDS ORDERED: Sodium Chlor 0.9% Inj 250 ML IV.SIG SCH (11:00)
[2017-10-26] MEDS ORDERED: Morphine Inj 4 MG/ML Vial IV.PUSH ONE (12:57)
--- NOTE | 2017-10-26 13:49 | P.CONPSY ---
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, R/O OCD, R/O formication, R/ O delusional disorder somatic type [place] II.: Deferred [place] III.: Neck pain, history of osteomyelitis, endocarditis, [place] IV.: Patient has history of polysubstance use [place] V.: 56 History of Present Illness Service: Medicine Primary Care Provider: Veronique Welsh MD History of Present Illness: The patient is a 47-year-old woman, domiciled with her in [place], unemployed, supported by [facility], with psychiatric history of crack cocaine and methamphetamine use disorder, no previous psychiatric hospitalizations, no previous suicidal attempts, with a medical history of IVDU , neck and back pain, who was brought to the ER by for evaluation of neck wound and psych eval. Pt has apparently been picking at her neck for several months, causing a significant wound to her posterior neck. +ongoing IVDU. No reported fever or chills. On arrival, BP 137/82, HR 138, O2 sat 95% on RA, Temp 99.5. W BC normal. Hemoglobin 7.0. ESR >140. Chemistry essentially unremarkable except for GFR 82. CRP 20. Urine Drug Screen positive for Opiates. MRI C-Spine w/ large soft tissue defect posteriorly extending from skull base to C7-T1, extensive subcutaneous tissues without abscess or dural involvement, no osteomyelitis, spinous processes may be exposed. S/p Vanc in ER. The patient was consulted to psychiatry to address a potential psychiatric etiology of skin peaking. On my psychiatric evaluation today the patient is calm, cooperative, pleasant. The patient reports that the reason she is in the hospital is because she has developed an inflammation on her neck and as a consequence of that she has been having some pruritus and itching and she has been discretion. The patient reports that the reason for scratching "is because this has been teaching me for about a couple of months now". The patient reports that there are days that she does not do it at all, and other days she does not more often. The patient denies any intrusive thoughts, denies obsessions and compulsions, the patient has the insight that this behavior is the consequence of the itching of her neck given her primary inflammation. The patient denies symptomatology of depression, she reports her mood as quite good, she rates her mood as 8/10, reports good sleep, good appetite, good level of energy, good sleep, denies hopelessness, helplessness, she denies suicidal and homicidal ideation. She denies visual and auditory hallucinations. During my evaluation the patient is logical, coherent and relevant. I was not able to elicit any ideas of reference, paranoia, agitation , aggressive behavior, loosening of associations, rashaad. She was oriented 3, no fluctuation of consciousness, no attention deficit periods no gross cognitive impairment is present during the evaluation. The patient does report symptomatology of anxiety that gets relieved with Ativan, in the context of being hospitalized and having occasional itchiness in her neck. She clarifies that since she was treated she has not been as having itchiness. Past psychiatric history: The patient denies previous psychiatric diagnosis, denies hospitalizations, denies suicidal attempts, Medical history: She has history of neck pain, back pain, in the past she had osteomyelitis and endocarditis, Family psychiatric history: She denies Substance history: The patient reports that she was methamphetamines IV drug user, used cocaine quite occasionally, but she has being clean for over a year with no more than 2 or 3 isolated relapses since then. Social history: The patient was born and raised in [place], she is living in [place] with her , she has a son of 29 years old, she is unemployed, supported by [employer], she reports that she has 2 masters degrees. Review of Systems Cardiovascular: Denies chest pain, Denies chest pain at rest, Denies chest pain with activity, Denies excessive sweating, Denies fainting, Denies fast heart rate, Denies foot swelling, Denies generalized swelling, Denies irregular heart rhythm, Denies leg pain with activity, Denies leg sores, Denies leg swelling, Denies lightheadedness, Denies radiating jaw, neck or arm pain, Denies rapid, pounding, or irregular heartbeat, Denies shortness of breath, Denies shortness of breath with activity, Denies shortness of breath when lying down, Denies shortness of breath causing sudden awakening, Denies slow heart rate, Denies other Respiratory: Denies change in phlegm color, Denies chest congestion, Denies cough, Denies coughing up blood, Denies excessive phlegm production, Denies pain on inspiration, Denies pain with cough, Denies shortness of breath, Denies shortness of breath with activity, Denies snoring, Denies stridor, Denies wheezing, Denies other Gastrointestinal: Denies abdominal pain, Denies belching, Denies black, tarry stools, Denies bloating, Denies bright, red blood in stools, Denies change in bowel habits, Denies constant urge to pass stool, Denies change in stools, Denies coffee ground vomit, Denies constipation, Denies cramping, Denies difficulty swallowing, Denies excessive passing of gas, Denies feeling full early, Denies heartburn, Denies incontinent of stools, Denies loose stools, Denies nausea, Denies pain with swallowing, Denies vomiting, Denies vomiting blood, Denies other Genitourinary: Denies abnormal periods, Denies abnormal vaginal bleeding, Denies absent period, Denies bleeding between periods, Denies blood in urine, Denies difficulty starting urination, Denies difficulty urinating, Denies dribbling after urination, Denies frequent nighttime urination, Denies genital itching, Denies genital lesions, Denies heavy periods, Denies hot flashes, Denies light periods, Denies nipple discharge, Denies painful intercourse, Denies painful periods, Denies painful urination, Denies pelvic pain, Denies prolapse symptoms, Denies sexual problems, Denies side pain, Denies urinary incontinence, Denies urinary urgency, Denies vaginal discharge, Denies vaginal dryness, Denies vaginal odor, Denies vaginal itching, Denies other Musculoskeletal: Denies abnormal walking, Denies back pain, Denies body aches, Denies decreased muscle mass, Denies deformity, Denies joint pain, Denies joint swelling, Denies limited joint movement, Denies loss of height, Denies muscle cramps, Denies muscle weakness, Denies neck pain, Denies numbness, Denies radiating pain into limb, Denies stiffness, Denies tingling, Denies other Skin/Breast: Denies acne, Denies bleeding lesions, Denies boil, Denies breast swelling, Denies breast skin changes, Denies breast pain, Denies breast lump, Denies change in breast shape, Denies change in hair, Denies change in skin color, Denies changing lesions, Denies dry skin, Denies excessive hair growth, Denies hair loss, Denies itching, Denies lesions, Denies nail changes, Denies new lesions, Denies nipple discharge, Denies non-healing lesions, Denies redness , Denies sensitivity to light, Denies rash, Denies skin pain, Denies skin ulcer , Denies sores, Denies stretch mercado, Denies unusual bruising, Denies wounds, Denies yellowing of the skin, Denies other Neurologic: Denies abnormal hearing, Denies abnormal movements, Denies abnormal speech, Denies abnormal walking, Denies behavioral changes, Denies burning sensations, Denies confusion, Denies dizziness, Denies fainting, Denies frequent falls, Denies headache(s), Denies lack of coordination, Denies localized weakness, Denies loss of vision, Denies memory loss, Denies numbness, Denies other visual disturbances, Denies radiating pain, Denies restless legs, Denies convulsions, Denies seizure-like activity, Denies sensory deficit, Denies tingling, Denies tingling/numbness/burning sensations, Denies tremor(s), Denies unsteadiness, Denies weakness, Denies other Psychiatric: Reports anxiety, Denies abnormal sleep pattern, Denies behavioral changes, Denies change in appetite, Denies change in sex drive, Denies confusion , Denies depression, Denies difficulty concentrating, Denies hearing things others do not hear, Denies hopelessness, Denies irritability, Denies lack of enjoyment, Denies memory loss, Denies mood swings, Denies panic attacks, Denies paranoia, Denies seeing things others do not see, Denies sensing things others do not sense, Denies tactile hallucinations, Denies thoughts of hurting/killing others, Denies thoughts of hurting/killing yourself, Denies other PMFSH - History History Provided By: Patient - Surgical History Surgical History: Surgical History (Last Reviewed 10/25/17 @ 22:38 by ARY Bledsoe) H/O spinal fusion - Tobacco History Tobacco Use In Past 30 Days: Yes Smoking Status: Refused to answer Tobacco Type: Cigarettes - Alcohol History How Often Do You Have a Drink Containing Alcohol: Unable to Obtain - Substance Use History Substance History: Past History - Travel History Recent Travel in the [facility] Within the Last 8 Weeks: No Recent Travel Out of the Country Within the Last 8 Weeks: No - Immunization History Tetanus Immunization: Unsure Hx Influenza Vaccine This Season: No Medications and Allergies Active Medications: Active Medications Acetaminophen (Tylenol) 650 mg PO Q4H PRN PRN Reason: Temp > 100.4 Al Hydroxide/Mg Hydroxide (Milk Of Magnesia Liq) 30 ml PO Q12H PRN PRN Reason: Mild Constipation Bisacodyl (Dulcolax Supp) 10 mg RECTAL DAILY PRN PRN Reason: SEVERE CONSITIPATION Aztreonam 2 gm/ Sodium (Chloride) 100 mls @ 200 mls/hr IV.SIG Q8H [facility] Last Admin: 10/26/17 06:42 Dose: 200 mls/hr Metronidazole/Sodium Chloride (Flagyl 500 Mg Inj) 100 mls @ 100 mls/hr IV.SIG Q8H [facility] Last Admin: 10/26/17 08:38 Dose: 100 mls/hr Sodium Chloride (Ns Inj) 1,000 mls @ 100 mls/hr IV.CONT .Q10H [facility] Last Admin: 10/25/17 22:56 Dose: 100 mls/hr Pharmacy Profile Note (Vancomycin Consult Pharmacy) 0 mls @ 0 mls/hr OTHER UNSCH [facility] Vancomycin HCl 1,000 mg/ (Sodium Chloride) 250 mls @ 250 mls/hr IV.SIG Q12H [facility] Last Infusion: 10/26/17 06:14 Dose: Infused Sodium Chloride (Ns Inj) 250 mls @ 15 mls/hr IV.SIG ONCE [facility] Stop: 10/27/17 03:39 Lactulose (Lactulose Liq) 30 ml PO DAILY PRN PRN Reason: SEVERE CONSITIPATION Lorazepam (Ativan Inj) 1 mg IV.PUSH Q4H PRN PRN Reason: WITHDRAWAL/AGITATION Ondansetron HCl (Zofran Odt) 4 mg PO Q6H PRN PRN Reason: NAUSEA OR VOMITING Senna/Docusate Sodium (Gisell-Colace) 1 tab PO BID [facility] Last Admin: 10/26/17 08:39 Dose: Not Given Sennosides (Senokot) 17.2 mg PO Q12H PRN PRN Reason: Moderate Constipation Allergies Allergy/AdvReac Type Severity Reaction Status Date / Time penicillin G Allergy Intermediate Rash Verified 10/25/17 16:34 chemical allergy Allergy Severe anaphalacti Uncoded 09/27/12 00:06 c Home Medications Medication Instructions Recorded Confirmed Type cyclobenzaprine 10 mg PO TID 10/25/17 10/25/17 History morphine 30 mg PO Q12H 10/25/17 10/25/17 History oxycodone-acetaminophen [Percocet] 1 tab PO Q4-6H PRN 10/25/17 10/25/17 History Exam Vital signs: Vital Signs 10/25/17 15:44 10/25/17 19:52 10/26/17 01:27 Temperature 99.5 F Pulse Rate 138 H 78 Respiratory Rate 20 18 20 Blood Pressure 137/82 132/80 Pulse Oximetry 95 97 10/26/17 01:30 10/26/17 04:00 10/26/17 08:00 Temperature 98.1 F 98.7 F 98.2 F Pulse Rate 95 H 96 H 94 H Respiratory Rate 20 18 18 Blood Pressure 116/58 L 120/69 121/75 Pulse Oximetry 92 L 95 96 Intake & Output 10/25/17 10/26/17 10/26/17 18:59 06:59 18:59 Intake Total 590 / 590 Output Total 0 / 0 Balance 590 / 590 Weight 58.967 kg 64.2 kg Intake: IV 350 / 350 Vancomycin Inj 1,000 MG In NS 250 / 250 Inj 250 ML @ 250 mls/hr IV.SIG Q12H [facility] Rx#:[id number] Flagyl 500 MG Inj 100 ML @ 100 100 / 100 mls/hr IV.SIG Q8H [facility] Rx#: [id number] Oral 240 / 240 Output: Urine 0 / 0 Other: # Bowel Movements 0 Weight On Admission 64.1 kg Mental Status Examination Appearance: Appropriate Consciousness: Alert Orientation: x4 Speech: Unremarkable Language: Adequate Fund of Knowledge: Adequate Memory: Unremarkable Mood: Appropriate Affect: Appropriate Thought Process & Associations: Intact Thought Content: Appropriate Hallucination Type: None Delusion Type: None Suicidal Ideation: No Suicidal Plan: No Suicidal Intention: No Homicidal Ideation: No Homicidal Plan: No Homicidal Intention: No Insight: Adequate Judgment: Adequate Assessment and Plan - Plan Plan: Estimated LOS: [] days Justification for Continued Inpatient Stay: On my psychiatric evaluation today the patient is calm, cooperative, pleasant. Patient does not display any neuropsychiatric symptoms that require an immediate psychiatric intervention. The patient denies symptomatology of depression, she denies rashaad and psychosis. The patient denies suicidal and homicidal ideation, she denies visual and auditory hallucinations. The patient is logical, coherent and relevant. Does not displayed any delusions, fluctuation of consciousness, paranoia, loosening of associations, ideas of reference. She is fully oriented 3. She does report symptomatology of anxiety related with her acute medical conditions, denies intrusiveness, denies obsessions, she reports that her itching is secondary to the inflammation in her neck and not a consequence of anxiety. The patient does have a psychiatric history of polysubstance dependence including cocaine, including methamphetamines, which he has being in partial sustained remission. She seems to be quite insightful about her drug problems. Based on my evaluation I do not think that her skin peaking is secondary to OCD, delusions or formication. She does not meet criteria for involuntary psychiatric admission. The patient would benefit of as needed low doses of Ativan 1 or 2 mg every 8 hours, but I would not recommend prescriptions of Ativan in the community given her history of drug abuse. I am going to prescribe a low dose of Klonopin while the patient is in the hospital for her anxiety, 0.5 mg 3 times daily. She might benefit for outpatient psychiatric care. Extensive support, motivation and psychoeducation provided. Consult appreciated
--- NOTE | 2017-10-26 15:52 | P.PN ---
Subjective Interval history: Follow up: Open neck wound Patient reports taht wound has been present since April and intermittently itching which is when she picks at it/scratches it. patient reports itching has resolved after IV abx requesting that her regularly scheduled pain medication Morphine ER 30 mg BID scheduled and percocet 10/325 mg as needed be resumed attempted to visualize neck wound but dressing currently adhered to wound and unable to remove at this time. Physical Exam Vital signs: Vital Signs 10/25/17 15:44 10/25/17 19:52 10/26/17 01:27 Temperature 99.5 F Pulse Rate 138 H 78 Respiratory Rate 20 18 20 Blood Pressure 137/82 132/80 Pulse Oximetry 95 97 10/26/17 01:30 10/26/17 04:00 10/26/17 08:00 Temperature 98.1 F 98.7 F 98.2 F Pulse Rate 95 H 96 H 94 H Respiratory Rate 20 18 18 Blood Pressure 116/58 L 120/69 121/75 Pulse Oximetry 92 L 95 96 10/26/17 12:00 10/26/17 14:05 10/26/17 14:31 Temperature 97.9 F 98.5 F 98.2 F Pulse Rate 114 H 103 H 98 H Respiratory Rate 18 16 18 Blood Pressure 117/66 105/61 103/66 Pulse Oximetry 97 96 Intake & Output 10/25/17 10/26/17 10/26/17 18:59 06:59 18:59 Intake Total 590 / 590 100 / 100 Output Total 0 / 0 Balance 590 / 590 100 / 100 Weight 58.967 kg 64.2 kg Intake: IV 350 / 350 100 / 100 Azactam Inj 2 GM In NS Inj 100 100 / 100 ML @ 200 mls/hr IV.SIG Q8H [facility] Rx#:[id number] Vancomycin Inj 1,000 MG In NS 250 / 250 Inj 250 ML @ 250 mls/hr IV.SIG Q12H [facility] Rx#:[id number] Flagyl 500 MG Inj 100 ML @ 100 100 / 100 mls/hr IV.SIG Q8H [facility] Rx#: [id number] Oral 240 / 240 Intake (Blood Product) Amt 0 / 0 Rbc As-3 Leukoreduced Unit 0 / 0 [id number] Output: Urine 0 / 0 Other: # Bowel Movements 0 Weight On Admission 64.1 kg Narrative: GENERAL: Middle-aged white femur in no acute distress. Sleepy after getting Ativan for MRI SKIN: dressing posterior neck present with drainage present. attempted to visualize neck wound but dressing currently adhered to wound and unable to remove at this time. CARDIOVASCULAR: Regular rate and rhythm. RESPIRATORY: No obvious rhonchi or wheezing. Clear to auscultation. Breath sounds equal bilaterally. GASTROINTESTINAL: Abdomen soft, non-tender, nondistended. BS normal. MUSCULOSKELETAL: Extremities without clubbing, cyanosis, or edema. No obvious deformities. Extensive posterior cervical wound, open, exposed muscle/tissue NEUROLOGICAL: Awake, alert and oriented x4. No focal neurologic deficits. Moving both upper and lower extremities spontaneously. Results - Labs CBC & Chem 7: 10/26/17 09:00 10/26/17 09:00 Laboratory Results - last 24 hr 10/25/17 10/25/17 10/25/17 17:05 17:05 17:05 WBC 8.2 RBC 4.06 Hgb 7.0 L Hct 22.6 L MCV 55.6 L MCH 17.2 L MCHC 31.0 L RDW 20.8 H Plt Count 308 MPV 8.6 Neut % (Auto) 77.0 H Lymph % (Auto) 15.7 [place] % (Auto) 5.8 Eos % (Auto) 1.2 Baso % (Auto) 0.3 Neut # (Auto) 6.3 Lymph # (Auto) 1.3 [place] # (Auto) 0.5 Eos # (Auto) 0.1 Baso # (Auto) 0.0 WBC Differential . Differential Comment Auto diff final ESR Sodium 136 Potassium 4.0 Chloride 103 Carbon Dioxide 27.8 Anion Gap 5 BUN 14 Creatinine 0.76 Estimated GFR 82 L Random Glucose 127 H Lactic Acid 1.1 Calcium 8.5 Total Bilirubin 0.5 AST 31 ALT 13 Alkaline Phosphatase 103 C-Reactive Protein Total Protein 8.4 H Albumin 3.0 L Urine Opiates Screen Ur Barbiturates Screen Ur Amphetamines Screen U Benzodiazepines Scrn Urine Cocaine Screen U Cannabinoids Screen Blood Type Blood Type Recheck Antibody Screen MTS Gel Crossmatch 10/25/17 10/25/17 10/25/17 17:05 17:05 17:26 WBC RBC Hgb Hct MCV MCH MCHC RDW Plt Count MPV Neut % (Auto) Lymph % (Auto) [place] % (Auto) Eos % (Auto) Baso % (Auto) Neut # (Auto) Lymph # (Auto) [place] # (Auto) Eos # (Auto) Baso # (Auto) WBC Differential Differential Comment ESR Greater than 140 H Sodium Potassium Chloride Carbon Dioxide Anion Gap BUN Creatinine Estimated GFR Random Glucose Lactic Acid Calcium Total Bilirubin AST ALT Alkaline Phosphatase C-Reactive Protein 20.00 H Total Protein Albumin Urine Opiates Screen Pos H Ur Barbiturates Screen Neg Ur Amphetamines Screen Neg U Benzodiazepines Scrn Neg Urine Cocaine Screen Neg U Cannabinoids Screen Neg Blood Type Blood Type Recheck Antibody Screen MTS Gel Crossmatch 10/26/17 10/26/17 10/26/17 09:00 09:00 09:00 WBC 5.3 RBC 3.62 L Hgb 6.4 L* Hct 20.5 L* MCV 56.6 L MCH 17.6 L MCHC 31.0 L RDW 20.9 H Plt Count 271 MPV 8.4 Neut % (Auto) 68.7 Lymph % (Auto) 18.1 [place] % (Auto) 8.1 H Eos % (Auto) 4.9 H Baso % (Auto) 0.2 Neut # (Auto) 3.6 Lymph # (Auto) 0.9 L [place] # (Auto) 0.4 Eos # (Auto) 0.3 Baso # (Auto) 0.0 WBC Differential . Differential Comment Auto diff final ESR Sodium 140 Potassium 3.5 Chloride 107 Carbon Dioxide 25.3 Anion Gap 8 BUN 9 Creatinine 0.51 Estimated GFR Greater than 89 Random Glucose 88 Lactic Acid Calcium 8.3 L Total Bilirubin 0.5 AST 20 ALT 10 Alkaline Phosphatase 84 C-Reactive Protein Total Protein 6.9 D Albumin 2.2 L D Urine Opiates Screen Ur Barbiturates Screen Ur Amphetamines Screen U Benzodiazepines Scrn Urine Cocaine Screen U Cannabinoids Screen Blood Type A Positive Blood Type Recheck Not needed Antibody Screen Negative MTS Gel Crossmatch 10/26/17 10:53 WBC RBC Hgb Hct MCV MCH MCHC RDW Plt Count MPV Neut % (Auto) Lymph % (Auto) [place] % (Auto) Eos % (Auto) Baso % (Auto) Neut # (Auto) Lymph # (Auto) [place] # (Auto) Eos # (Auto) Baso # (Auto) WBC Differential Differential Comment ESR Sodium Potassium Chloride Carbon Dioxide Anion Gap BUN Creatinine Estimated GFR Random Glucose Lactic Acid Calcium Total Bilirubin AST ALT Alkaline Phosphatase C-Reactive Protein Total Protein Albumin Urine Opiates Screen Ur Barbiturates Screen Ur Amphetamines Screen U Benzodiazepines Scrn Urine Cocaine Screen U Cannabinoids Screen Blood Type Blood Type Recheck Antibody Screen MTS Gel Crossmatch See Detail Microbiology 10/25/17 17:00 Abscess - Back Gram Stain - Final 10/25/17 17:00 Abscess - Back Wound Culture - Preliminary Beta Streptococcus Group G 10/25/17 17:10 Blood - Peripheral Aerobic Blood Culture - Preliminary No growth in 1 day 10/25/17 17:10 Blood - Peripheral Anaerobic Blood Culture - Preliminary No growth in 1 day 10/25/17 17:00 Blood - Peripheral Aerobic Blood Culture - Preliminary No growth in 1 day 10/25/17 17:00 Blood - Peripheral Anaerobic Blood Culture - Preliminary No growth in 1 day - Imaging Impressions Cervical Spine MRI 10/25/17 17:07 CONCLUSION: 1. Large soft tissue defect posteriorly extending from just below the skull base to C7-T1 with extensive involvement subcutaneous tissues without deep space abscess or obvious dural involvement within the cervical cord. 2. I don't see a evidence for osteomyelitis in the vertebral bodies. 3. Spinous processes may be exposed. 4. Correlation with plain films and noncontrast CT scan would be of benefit. Assessment and Plan - Plan 1. Open Neck Wound: extensive posterior cervical wound from self-picking, + exposed muscle/tissue, MRI C-Spine w/ large soft tissue defect extending from skull base to C7-T1 with extensive involvement of subcutaneous tissues, no abscess or osteomyelitis , spinous processes may be exposed will continue w/ IV Abx, Vanc/Azactam/Flagyl, consult Plastic Surgery for further eval/surgical intervention, possibly Neurosurgery. 2. Skin Picking Disorder: Pt w/ compulsive skin picking resulting in above wound. Consult Psych who added Klonopin for anxiety 3. Anemia: Hgb 7.0 on admission, no active bleeding noted. Type & Screen, repeat Hgb/Hct (10/26) 6.4 2 units PRBC ordered recheck CBC in AM 10 mins after RN started PRBCs patient c/o itching at neck wound area. Discussed with supervising physisican Dr. Mckeon. add benedryl 25 mg IV x 1 unlikely that this is a reaction to the blood continue transfusion and monitor for further ss of reaction 4. IVDU: Ongoing, Ativan prn for agitation/withdrawal 5. chronic neck pain: patient requesting that her regularly scheduled pain medication Morphine ER 30 mg BID scheduled and percocet 10/325 mg as needed be resumed verified in [facility] and resumed 6. DVT Prophylaxis: SCD/Teds Discussed case with supervising physician Dr. Mckeon
[2017-10-26] MEDS: Morphine Sulfate 15 MG IR Tablet PO SCH (17:20)
[2017-10-26] MEDS: Sod Chloride 0.9% Inj 1,000 ML IV.CONT SCH ×2 (17:20→20:37)
--- NOTE | 2017-10-26 19:44 | P.CON ---
History of Present Illness Service: Plastic surgery Consult date: 10/26/17 Primary Care Provider: Veronique Welsh MD History of Present Illness: This is a 47-year-old female with a PMH of IVDU who was brought to the ER by for evaluation of neck wound and psych eval. Pt has apparently been picking at her neck for several months, causing a significant wound to her posterior neck. +ongoing IVDU. No reported fever or chills. Urine Drug Screen positive for Opiates. MRI C-Spine w/ large soft tissue defect posteriorly extending from skull base to C7-T1, extensive subcutaneous tissues without abscess or dural involvement, no osteomyelitis, spinous processes may be exposed. S/p Vanc in ER Review of Systems All other systems reviewed negative except as stated in HPI PMFSH - History History Provided By: Patient - Surgical History Surgical History: Surgical History (Last Reviewed 10/25/17 @ 22:38 by ARY Bledsoe) H/O spinal fusion - Tobacco History Tobacco Use In Past 30 Days: Yes Smoking Status: Heavy tobacco smoker Tobacco Type: Cigarettes - Alcohol History How Often Do You Have a Drink Containing Alcohol: Never - Substance Use History Substance History: Past History Family history noncontributory to presenting complaint Med list reviewed PMFSH - History History Provided By: Patient - Surgical History Surgical History: Surgical History (Last Reviewed 10/25/17 @ 22:38 by ARY Bledsoe) H/O spinal fusion - Tobacco History Tobacco Use In Past 30 Days: Yes Smoking Status: Refused to answer Tobacco Type: Cigarettes - Alcohol History How Often Do You Have a Drink Containing Alcohol: Unable to Obtain - Substance Use History Substance History: Past History - Travel History Recent Travel in the [place] Within the Last 8 Weeks: No Recent Travel Out of the Country Within the Last 8 Weeks: No - Immunization History Tetanus Immunization: Unsure Hx Influenza Vaccine This Season: No Medications and Allergies Active Medications: Active Medications Acetaminophen (Tylenol) 650 mg PO Q4H PRN PRN Reason: Temp > 100.4 Al Hydroxide/Mg Hydroxide (Milk Of Magnesia Liq) 30 ml PO Q12H PRN PRN Reason: Mild Constipation Bisacodyl (Dulcolax Supp) 10 mg RECTAL DAILY PRN PRN Reason: SEVERE CONSITIPATION Aztreonam 2 gm/ Sodium (Chloride) 100 mls @ 200 mls/hr IV.SIG Q8H [facility] Last Admin: 10/26/17 15:40 Dose: 200 mls/hr Metronidazole/Sodium Chloride (Flagyl 500 Mg Inj) 100 mls @ 100 mls/hr IV.SIG Q8H [facility] Last Admin: 10/26/17 17:20 Dose: 100 mls/hr Sodium Chloride (Ns Inj) 1,000 mls @ 100 mls/hr IV.CONT .Q10H [facility] Last Admin: 10/26/17 17:20 Dose: 100 mls/hr Pharmacy Profile Note (Vancomycin Consult Pharmacy) 0 mls @ 0 mls/hr OTHER UNSCH [facility] Vancomycin HCl 1,000 mg/ (Sodium Chloride) 250 mls @ 250 mls/hr IV.SIG Q12H [facility] Last Admin: 10/26/17 18:24 Dose: 250 mls/hr Sodium Chloride (Ns Inj) 250 mls @ 15 mls/hr IV.SIG ONCE [facility] Stop: 10/27/17 03:39 Last Admin: 10/26/17 14:48 Dose: 15 mls/hr Lactulose (Lactulose Liq) 30 ml PO DAILY PRN PRN Reason: SEVERE CONSITIPATION Lorazepam (Ativan Inj) 1 mg IV.PUSH Q4H PRN PRN Reason: WITHDRAWAL/AGITATION Miscellaneous Information ([facility] Ordered Lab Info) 0 each OTHER ONCE ONE Stop: 10/27/17 05:46 Morphine Sulfate (Msir) 30 mg PO Q12H [facility] Last Admin: 10/26/17 17:20 Dose: 30 mg Ondansetron HCl (Zofran Odt) 4 mg PO Q6H PRN PRN Reason: NAUSEA OR VOMITING Senna/Docusate Sodium (Gisell-Colace) 1 tab PO BID [facility] Last Admin: 10/26/17 08:39 Dose: Not Given Sennosides (Senokot) 17.2 mg PO Q12H PRN PRN Reason: Moderate Constipation Allergies Allergy/AdvReac Type Severity Reaction Status Date / Time penicillin G Allergy Intermediate Rash Verified 10/25/17 16:34 chemical allergy Allergy Severe anaphalacti Uncoded 09/27/12 00:06 c Home Medications Medication Instructions Recorded Confirmed Type cyclobenzaprine 10 mg PO TID 10/25/17 10/25/17 History morphine 30 mg PO Q12H 10/25/17 10/25/17 History oxycodone-acetaminophen [Percocet] 1 tab PO Q4-6H PRN 10/25/17 10/25/17 History Physical Exam Vital signs: Vital Signs 10/25/17 19:52 10/26/17 01:27 10/26/17 01:30 Temperature 98.1 F Pulse Rate 78 95 H Respiratory Rate 18 20 20 Blood Pressure 132/80 116/58 L Pulse Oximetry 97 92 L 10/26/17 04:00 10/26/17 08:00 10/26/17 12:00 Temperature 98.7 F 98.2 F 97.9 F Pulse Rate 96 H 94 H 114 H Respiratory Rate 18 16 18 Blood Pressure 120/69 121/75 117/66 Pulse Oximetry 95 96 97 10/26/17 14:05 10/26/17 14:31 10/26/17 16:00 Temperature 98.5 F 98.2 F 97.6 F Pulse Rate 103 H 98 H 105 H Respiratory Rate 16 18 16 Blood Pressure 105/61 103/66 101/62 Pulse Oximetry 96 96 10/26/17 18:02 10/26/17 18:19 Temperature 98.1 F 98.3 F Pulse Rate 80 81 Respiratory Rate 18 18 Blood Pressure 107/57 L 95/50 L Pulse Oximetry 96 Intake & Output 10/26/17 10/26/17 10/27/17 06:59 18:59 06:59 Intake Total 590 / 590 2200 / 2200 Output Total 0 / 0 400 / 400 Balance 590 / 590 1800 / 1800 Weight 64.2 kg Intake: IV 350 / 350 1200 / 1200 NS Inj 1,000 ML @ 100 mls/hr IV 1000 / 1000 .CONT .Q10H [facility] Rx#:[id number] Azactam Inj 2 GM In NS Inj 100 100 / 100 ML @ 200 mls/hr IV.SIG Q8H [facility] Rx#:[id number] Vancomycin Inj 1,000 MG In NS 250 / 250 Inj 250 ML @ 250 mls/hr IV.SIG Q12H [facility] Rx#:[id number] Flagyl 500 MG Inj 100 ML @ 100 100 / 100 100 / 100 mls/hr IV.SIG Q8H [facility] Rx#: [id number] Oral 240 / 240 600 / 600 Intake (Blood Product) Amt 400 / 400 Rbc As-3 Leukoreduced Unit 0 / 0 [id number] Rbc As-3 Leukoreduced Unit 400 / 400 [id number] Output: Urine 0 / 0 400 / 400 Other: Date of Last Bowel Movement 10/26/17 # Bowel Movements 0 1 Weight On Admission 64.1 kg Narrative: No apparent anxiety moist mucous membranes PERRLA skin without rash respirations nonlabored moves all four extremities to command digits warm well perfused Posterior cervical neck with roughly 12 x 8 cm wound Mild surrounding erythema No discharge expressed Base of wound appears viable and without necrosis No exposed bone/hardware appreciated Assessment and Plan - Assessment (1) Open neck wound Code(s): S11.90XA - Unspecified open wound of unspecified part of neck, initial encounter Status: Acute (2) Skin-picking disorder Code(s): F42.4 - Excoriation (skin-picking) disorder Status: Acute (3) IVDU (intravenous drug user) Code(s): F19.90 - Other psychoactive substance use, unspecified, uncomplicated Status: Acute - Plan 47-year-old female with posterior neck wound and underlying hardware Patient and patient's described compulsive picking at wound Patient reports this is solely because of itching although feels this is pathologic Consider antihistamine trial p.o. for itching Please consider consulting wound nurses for consideration of shaving some of the patient's occipital hair to allow for VAC placement This would prevent patient from picking at wound Would advise conservative measures as any attempted closure with suffer from the same pathologic picking which seems to have caused this current wound Please call with questions
[2017-10-26] MEDS: Acetaminophen 325 MG Tablet PO PRN (20:26)
[2017-10-27] MEDS: Morphine Sulfate 15 MG IR Tablet PO SCH ×2 (03:26→16:24)
[2017-10-27] MEDS: Vancomycin Inj 1,000 MG in Sodium Chlor 0.9% Inj 250 ML IV.SIG SCH (04:58)
[2017-10-27] MEDS ORDERED: Pharmacy Ordered Lab Info OTHER ONE (05:45)
[2017-10-27] MEDS: Aztreonam Inj 2 GM in Sodium Chloride 0.9% Inj 100 ML IV.SIG SCH (06:02)
[2017-10-27] MEDS: Sod Chloride 0.9% Inj 1,000 ML IV.CONT SCH ×2 (06:02→16:25)
[2017-10-27 06:16] LABS: Baso % (Auto) 0.1 % (0.0-2.0); Eos # (Auto) 0.3 th/mm3 (0.0-0.4); Eos % (Auto) 7.5 % (0.0-4.0); Hematocrit 25.9 % (35.0-46.0); Hemoglobin 8.2 gm/dL (11.6-15.3); Lymph % (Auto) 23.5 % (9.0-44.0); Mean Corpuscular HGB Conc 31.6 % (32.0-36.0); Mean Corpuscular Hemoglobin 19.6 pg (27.0-34.0); Mean Platelet Volume 8.6 fL (7.0-11.0); Mono # (Auto) 0.4 th/mm3 (0.0-0.9); Mono % (Auto) 8.6 % (0.0-8.0); Neut # (Auto) 2.5 th/mm3 (1.8-7.7); Neut % (Auto) 60.3 % (16.0-70.0); Platelet Count 288 th/mm3 (150-450); Red Blood Count 4.17 mil/mm3 (4.00-5.30); Red Cell Distribution Width 27.7 % (11.6-17.2); White Blood Count 4.1 th/mm3 (4.0-11.0)
[2017-10-27 06:27] LABS: Anion Gap 5 meq/L (5-15); Blood Urea Nitrogen 12 mg/dL (7-18); Carbon Dioxide 26.9 meq/L (21.0-32.0); Chloride 111 meq/L (98-107); Glomerular Filtration Rate Greater Than 89 mL/min (>89); Glucose,Random 101 mg/dL (74-106); Potassium 3.6 meq/L (3.5-5.1); Sodium 143 meq/L (136-145)
[2017-10-27 07:43] LABS: Dimorphic RBC Present
[2017-10-27 07:44] LABS: Ovalocytes 1+; Tear Drop Cells 1+
[2017-10-27 07:45] LABS: Platelet Estimate Normal (Normal); Platelet Morphology Normal (Normal)
[2017-10-27] MEDS: Senna/Docusate Sodium 8.6/50 MG Tablet PO SCH ×2 (09:47→21:42)
--- NOTE | 2017-10-27 11:54 | P.PN ---
Subjective Interval history: Follow up: Open neck wound Patient reports that wound has been present since April and intermittently itching which is when she picks at it/scratches it. denies itching today Physical Exam Vital signs: Vital Signs 10/26/17 12:00 10/26/17 14:05 10/26/17 14:31 Temperature 97.9 F 98.5 F 98.2 F Pulse Rate 114 H 103 H 98 H Respiratory Rate 18 16 18 Blood Pressure 117/66 105/61 103/66 Pulse Oximetry 97 96 10/26/17 16:00 10/26/17 18:02 10/26/17 18:19 Temperature 97.6 F 98.1 F 98.3 F Pulse Rate 105 H 80 81 Respiratory Rate 16 18 18 Blood Pressure 101/62 107/57 L 95/50 L Pulse Oximetry 96 96 10/26/17 20:00 10/26/17 21:25 10/27/17 00:00 Temperature 98.2 F 98.3 F 98 F Pulse Rate 86 92 H 77 Respiratory Rate 16 18 16 Blood Pressure 96/56 L 108/55 L 110/60 Pulse Oximetry 96 96 98 10/27/17 04:00 10/27/17 08:00 Temperature 98.2 F 97.4 F L Pulse Rate 72 73 Respiratory Rate 18 16 Blood Pressure 111/68 139/88 Pulse Oximetry 98 95 Intake & Output 10/26/17 10/27/17 10/27/17 18:59 06:59 18:59 Intake Total 2300 / 2300 2450 / 2450 Output Total 400 / 400 Balance 1900 / 1900 2450 / 2450 Weight 64.2 kg Intake: IV 1300 / 1300 2450 / 2450 NS Inj 1,000 ML @ 100 mls/hr IV 1000 / 1000 2000 / 2000 .CONT .Q10H [facility] Rx#:[id number] Azactam Inj 2 GM In NS Inj 100 100 / 100 100 / 100 ML @ 200 mls/hr IV.SIG Q8H [facility] Rx#:[id number] Vancomycin Inj 1,000 MG In NS 250 / 250 Inj 250 ML @ 250 mls/hr IV.SIG Q12H [facility] Rx#:[id number] Flagyl 500 MG Inj 100 ML @ 100 200 / 200 100 / 100 mls/hr IV.SIG Q8H [facility] Rx#: [id number] Oral 600 / 600 Intake (Blood Product) Amt 400 / 400 0 / 0 Rbc As-3 Leukoreduced Unit 0 / 0 0 / 0 [id number] Rbc As-3 Leukoreduced Unit 400 / 400 [id number] Output: Urine 400 / 400 Other: Date of Last Bowel Movement 10/26/17 # Bowel Movements 1 Narrative: GENERAL: Middle-aged white femur in no acute distress. Sleepy after getting Ativan for MRI SKIN: dressing posterior neck present dry and intact CARDIOVASCULAR: Regular rate and rhythm. RESPIRATORY: No obvious rhonchi or wheezing. Clear to auscultation. Breath sounds equal bilaterally. GASTROINTESTINAL: Abdomen soft, non-tender, nondistended. BS normal. MUSCULOSKELETAL: Extremities without clubbing, cyanosis, or edema. NEUROLOGICAL: Awake, alert and oriented x4. No focal neurologic deficits. Moving both upper and lower extremities spontaneously. Results - Labs CBC & Chem 7: 10/27/17 05:30 10/27/17 05:30 Laboratory Results - last 24 hr 10/26/17 10/27/17 10/27/17 10:53 04:55 05:30 WBC 4.1 RBC 4.17 Hgb 8.2 L Hct 25.9 L MCV 62.0 L D MCH 19.6 L MCHC 31.6 L RDW 27.7 H D Plt Count 288 MPV 8.6 Prelim Diff (Auto) Slide review pending Neut % (Auto) 60.3 Lymph % (Auto) 23.5 Gregg % (Auto) 8.6 H Eos % (Auto) 7.5 H Baso % (Auto) 0.1 Neut # (Auto) 2.5 Lymph # (Auto) 1.0 Gregg # (Auto) 0.4 Eos # (Auto) 0.3 Baso # (Auto) 0.0 WBC Differential . Diff Scan Auto diff confirmed Differential Comment . Platelet Estimate Normal Platelet Morphology Normal Dimorphic RBCs Present H Tear Drop Cells 1+ H Ovalocytes 1+ H Sodium Potassium Chloride Carbon Dioxide Anion Gap BUN Creatinine Estimated GFR Random Glucose Calcium Vancomycin Trough 2.9 L MTS Gel Crossmatch See Detail 10/27/17 05:30 WBC RBC Hgb Hct MCV MCH MCHC RDW Plt Count MPV Prelim Diff (Auto) Neut % (Auto) Lymph % (Auto) Gregg % (Auto) Eos % (Auto) Baso % (Auto) Neut # (Auto) Lymph # (Auto) Gregg # (Auto) Eos # (Auto) Baso # (Auto) WBC Differential Diff Scan Differential Comment Platelet Estimate Platelet Morphology Dimorphic RBCs Tear Drop Cells Ovalocytes Sodium 143 Potassium 3.6 Chloride 111 H Carbon Dioxide 26.9 Anion Gap 5 BUN 12 Creatinine 0.50 Estimated GFR Greater than 89 Random Glucose 101 Calcium 8.0 L Vancomycin Trough MTS Gel Crossmatch Microbiology 10/25/17 17:10 Blood - Peripheral Aerobic Blood Culture - Preliminary No growth in 2 days 10/25/17 17:10 Blood - Peripheral Anaerobic Blood Culture - Preliminary No growth in 2 days 10/25/17 17:00 Blood - Peripheral Aerobic Blood Culture - Preliminary No growth in 2 days 10/25/17 17:00 Blood - Peripheral Anaerobic Blood Culture - Preliminary No growth in 2 days 10/25/17 17:00 Abscess - Back Gram Stain - Final 10/25/17 17:00 Abscess - Back Wound Culture - Preliminary Beta Streptococcus Group G Assessment and Plan - Plan 1. Open Neck Wound: extensive posterior cervical wound from self-picking, + exposed muscle/tissue, MRI C-Spine w/ large soft tissue defect extending from skull base to C7-T1 with extensive involvement of subcutaneous tissues, no abscess or osteomyelitis , spinous processes may be exposed will continue w/ IV Abx, Vanc/Azactam/Flagyl, consult Plastic Surgery for further eval/surgical intervention Patient seen by Dr. Stanley feels the wound is nonsurgical at this time. recommends antihistamine (dyphendydramine as needed for itching), consider consulting wound nurses for consideration of shaving some of the patient's occipital hair to allow for VAC placement consult placed to wound care 2. Skin Picking Disorder: Pt w/ compulsive skin picking resulting in above wound. Consult Psych who added Klonopin for anxiety 3. Anemia: Hgb 7.0 on admission, no active bleeding noted. Type & Screen, repeat Hgb/Hct (10/26) 6.4 2 units PRBC ordered recheck CBC (10/27) 8.2 4. IVDU: Ongoing, Ativan prn for agitation/withdrawal 5. chronic neck pain: patient requesting that her regularly scheduled pain medication Morphine ER 30 mg BID scheduled and percocet 10/325 mg as needed be resumed verified in E Force and resumed 6. DVT Prophylaxis: SCD/Teds Discussed case with supervising physician Dr. Sandoval
--- NOTE | 2017-10-27 17:08 | P.PNWCN ---
Wound Care Nurse Consult Description: Consult for Wound Management of posterior neck "Dr Teixeira would like the hair on neck shaved" Communicated with: ARY Rivera RN Recommendation: Paged Dr Teixeira for clarification of orders. Awaiting return call for possible application of wound VAC with patient history of picking. Additional information: Patient not seen for shaving of hair today. No orders were written/obtained for wound VAC application with settings, frequency of dressing changes, etc. Dr Teixeira has not returned phone call after multiple messages were left.
[2017-10-27] MEDS: Vancomycin Inj 1,300 MG in Sodium Chlor 0.9% Inj 500 ML IV.SIG SCH (17:21)
[2017-10-27] MEDS: oxyCODONE/Acetaminophen 10/325 Tablet PO PRN ×2 (18:01→22:19)
[2017-10-28] MEDS: oxyCODONE/Acetaminophen 10/325 Tablet PO PRN ×4 (03:34→22:39)
[2017-10-28] MEDS: Morphine Sulfate 15 MG IR Tablet PO SCH ×2 (03:34→17:07)
[2017-10-28] MEDS: Vancomycin Inj 1,300 MG in Sodium Chlor 0.9% Inj 500 ML IV.SIG SCH (06:11)
[2017-10-28] MEDS: Sod Chloride 0.9% Inj 1,000 ML IV.CONT SCH ×3 (06:11→23:06)
[2017-10-28] MEDS: Senna/Docusate Sodium 8.6/50 MG Tablet PO SCH ×2 (09:22→22:40)
[2017-10-28 09:44] LABS: Hematocrit 25.1 % (35.0-46.0); Hemoglobin 7.8 gm/dL (11.6-15.3); Mean Corpuscular HGB Conc 31.2 % (32.0-36.0); Mean Corpuscular Hemoglobin 19.6 pg (27.0-34.0); Mean Corpuscular Volume 62.8 fL (80.0-100.0); Mean Platelet Volume 8.4 fL (7.0-11.0); Platelet Count 301 th/mm3 (150-450); Red Cell Distribution Width 28.5 % (11.6-17.2); White Blood Count 4.6 th/mm3 (4.0-11.0)
[2017-10-28 10:03] LABS: Anion Gap 8 meq/L (5-15); Blood Urea Nitrogen 7 mg/dL (7-18); Carbon Dioxide 21.4 meq/L (21.0-32.0); Chloride 113 meq/L (98-107); Glomerular Filtration Rate Greater Than 89 mL/min (>89); Glucose,Random 68 mg/dL (74-106); Potassium 3.7 meq/L (3.5-5.1); Sodium 142 meq/L (136-145)
[2017-10-28 10:41] LABS: Eosinophils 6 % (0-4); Lymphocytes 19 % (9-44); Monocytes 6 % (0-8)
[2017-10-28 10:42] LABS: Acanthocytes Occ; Dimorphic RBC Present; Ovalocytes 1+; Platelet Estimate Normal (Normal); Platelet Morphology Normal (Normal)
--- NOTE | 2017-10-28 10:52 | P.PN ---
Subjective Interval history: Follow-up for left posterior neck wound. Patient does not participate in much conversation, although does shake her head yes and no. She denies any fevers or chills. She has a large dressing covering the posterior neck wound, saturated with purulent drainage. She otherwise denies any other medical complaints. Tolerating oral intake. Physical Exam Vital signs: Vital Signs 10/27/17 12:00 10/27/17 16:00 10/27/17 20:00 Temperature 97.6 F 97.8 F 97.5 F L Pulse Rate 80 82 95 H Respiratory Rate 16 16 18 Blood Pressure 134/79 140/79 138/83 Pulse Oximetry 95 96 98 10/28/17 00:00 10/28/17 04:00 10/28/17 08:00 Temperature 97.8 F 97.7 F 97.5 F L Pulse Rate 83 75 92 H Respiratory Rate 18 18 20 Blood Pressure 123/72 120/69 136/75 Pulse Oximetry 94 L 96 93 L Intake & Output 10/27/17 10/28/17 10/28/17 18:59 06:59 18:59 Intake Total 1840 / 1840 1886 / 1886 526 / 526 Output Total 900 / 900 Balance 940 / 940 1886 / 1886 526 / 526 Weight 66 kg Intake: IV 1000 / 1000 1526 / 1526 526 / 526 NS Inj 1,000 ML @ 100 mls/hr IV 1000 / 1000 1000 / 1000 .CONT .Q10H [facility] Rx#:[id number] Vancomycin Inj 1,300 MG In NS 526 / 526 526 / 526 Inj 500 ML @ 250 mls/hr IV.SIG Q12H [facility] Rx#:[id number] Oral 840 / 840 360 / 360 Output: Urine 900 / 900 Other: # Voids 5 # Bowel Movements 1 0 Narrative: GENERAL: Well-nourished, well-developed middle-aged female patient in [facility]. SKIN: Warm and dry. Posterior neck with very large stage III wound, purulent drainage, minimally surrounding erythema and edema. HEENT: Normocephalic. Atraumatic. Pupils equal and round. Mucous membranes pink and moist. NECK: Supple. Trachea midline. CARDIOVASCULAR: Regular rate and rhythm. No murmur appreciated. RESPIRATORY: No accessory muscle use. Clear to auscultation. Breath sounds equal bilaterally. GASTROINTESTINAL: Abdomen soft, non-tender, nondistended. Normoactive bowel sounds x4. MUSCULOSKELETAL: No obvious deformities. Extremities without clubbing, cyanosis , or edema. NEUROLOGICAL: Awake and alert. No obvious cranial nerve deficits. Moving all extremities spontaneously. Results - Labs CBC & Chem 7: 10/28/17 08:30 10/28/17 08:30 Laboratory Results - last 24 hr 10/28/17 10/28/17 08:30 08:30 WBC 4.6 RBC 4.00 Hgb 7.8 L Hct 25.1 L MCV 62.8 L MCH 19.6 L MCHC 31.2 L RDW 28.5 H Plt Count 301 MPV 8.4 Prelim Diff (Auto) Manual diff required WBC Differential Manual diff final Seg Neuts % (Manual) 69 Lymphocytes % (Manual) 19 Monocytes % (Manual) 6 Eosinophils % (Manual) 6 H Abs Neuts (Manual) 3.2 Differential Comment . Platelet Estimate Normal Platelet Morphology Normal Dimorphic RBCs Present H Ovalocytes 1+ H Acanthocytes (Spur) Occ H Sodium 142 Potassium 3.7 Chloride 113 H Carbon Dioxide 21.4 Anion Gap 8 BUN 7 Creatinine 0.56 Estimated GFR Greater than 89 Random Glucose 68 L Calcium 8.0 L Microbiology 10/25/17 17:00 Abscess - Back Gram Stain - Final 10/25/17 17:00 Abscess - Back Wound Culture - Final Beta Streptococcus Group G Staphylococcus aureus 10/25/17 17:10 Blood - Peripheral Aerobic Blood Culture - Preliminary No growth in 2 days 10/25/17 17:10 Blood - Peripheral Anaerobic Blood Culture - Preliminary No growth in 2 days 10/25/17 17:00 Blood - Peripheral Aerobic Blood Culture - Preliminary No growth in 2 days 10/25/17 17:00 Blood - Peripheral Anaerobic Blood Culture - Preliminary No growth in 2 days Assessment and Plan - Assessment (1) Open neck wound Code(s): S11.90XA - Unspecified open wound of unspecified part of neck, initial encounter Status: Acute (2) Skin-picking disorder Code(s): F42.4 - Excoriation (skin-picking) disorder Status: Acute (3) IVDU (intravenous drug user) Code(s): F19.90 - Other psychoactive substance use, unspecified, uncomplicated Status: Acute (4) Anemia Code(s): D64.9 - Anemia, unspecified Status: Acute - Plan Open Neck Wound: extensive posterior cervical wound from self-picking, + exposed muscle/tissue. Hx of C-spine osteo and hardware placement. -MRI C-Spine w/ large soft tissue defect extending from skull base to C7-T1 with extensive involvement of subcutaneous tissues, no abscess or osteomyelitis , spinous processes may be exposed -wound culture with strep and MSSA -continue antibiotics with IV Ancef, per ID -ESR > 140 -consult Plastic Surgery, seen by Dr. Stanley, wound is nonsurgical at this time. Recommends antihistamine for itching, consider consulting wound nurses for consideration of shaving some of the patient's occipital hair -consult placed to wound care to consider vac placement per Dr. Stanley -ID consulted, appreciate recommendations Skin Picking Disorder: Pt w/ compulsive skin picking resulting in above wound. -Consult Psych who added Klonopin for anxiety Severe Microcytic Anemia: Hgb 7.0 on admission, no active bleeding noted. -Repeat Hgb/Hct (10/26) 6.4, given 2 units PRBCs -repeat CBC with Hgb 7.8 -check iron studies, ferritin, folate, B12 -check stool hemoccult -transfuse as needed IVDU: Chronic, ongoing -Ativan prn for agitation/withdrawal Chronic neck pain: patient requesting that her regularly scheduled pain medication be restarted -Continue Morphine ER 30 mg BID scheduled and percocet 10/325 mg as needed, verified in E Force DVT Prophylaxis: SCD/Teds Discharge Planning: Discharge pending further clinical improvement. On IV antibiotics. No plans for discharge yet.
--- NOTE | 2017-10-28 10:58 | P.PNWCN ---
Wound Care Nurse Consult Description: Consult for Wound Management of posterior neck "Dr Teixeira would like the hair on neck shaved" Communicated with: Roxana NOBLE, Recommendation: 1. Cleanse posterior neck wound with normal saline pat dry, Apply Cavilon skin prep to periwound. 2. Apply Bactroban 2% oint to wound base and cover with Maxorb ll cut to fit wound base ,secure with border gauze dressing. 3. Change dressing daily or as needed for dislodgement. 4. Sign and date all dressing 5. Follow up with out patient wound center. Additional information: Patient was seen today by administrative underwriter for wound management of posterior neck wound.Telecom Specialist introduce self to patient whom is agitated.Patient unpleasant to talk to would just like pain Meds and to be left alone so she can get some sleep.Patient did agree for administrative underwriter to assess wound though she thinks its useless being dressing was changed yesterday.Dressing partial removed for administrative underwriter to visualize wound.Wound cleansed with normal saline pat dry.Patient noted to have a mixed full/partial thickness self inflicted wound to posterior neck measuring ~10cm x~5cm x <1.0cm .Wound base is 50% pink moist non granular tissue 30% red moist non granular tissue 20% yellow slough biofilm.Wound edges are well defined and sloped with wound base .Minimal erythema noted to periwound circumferentially no induration noted.scant serosanguineous exudate without odor.Adapt gauze placed on wound bed and covered with dry dressing REAL Schmidt to change dressing when Bactroban available. Wound/Pressure Injury - Wound Posterior Neck Wound Assessment: Ongoing Wound Type: Abrasion Is This a Chronic Wound: Yes Requested from Provider a Wound Care Consult: No (Zafar NOBLE,[facility] seen 10/28) Length: 10 Width: 15 Wound Bed Appearance: Pale, [place], Red, Yellow Surrounding Tissue Appearance: Erythema Surrounding Tissue Temperature: Warm Drainage Description: Serosanguinous Drainage Amount: Minimal Drainage Odor: No Odor Dressing Status: Reinforced Cleansing Solution: Saline Topical: Medicated Ointment Wound Packing Type: Alginate Wound Dressing Change Date: 10/28/17
--- NOTE | 2017-10-28 11:24 | P.CONID ---
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 and patological fracture sp fusion by Dr Oliver presented with a large 12x8 cm posterior neck resulting from picking Seen by plasteic surgeron who recommended conservative treatment afebrile, normal WBC but very high ESR > 140 Prominent microcyto=ic anemia with MCV of 50-60 MRI w/wo contrast no obvious osteo started on vasncomycin Review of Systems other (pt is non cooperative on onterview, not answering questions) PMFSH - History History Provided By: Patient - Medical History Medical History: Medical History (Last Updated 12/13/17 @ 10:04 by Dina Carlos MD) IV drug abuse Osteomyelitis of cervical spine - Surgical History Surgical History: Surgical History (Last Reviewed 12/13/17 @ 10:03 by Dina Carlos MD) H/O spinal fusion - Family History Family History: Family History (Last Updated 12/13/17 @ 10:03 by Dina Carlos MD) Other No pertinent family history - Tobacco History Tobacco Use In Past 30 Days: Yes Smoking Status: Refused to answer Tobacco Type: Cigarettes - Alcohol History How Often Do You Have a Drink Containing Alcohol: Unable to Obtain - Substance Use History Substance History: Past History - Travel History Recent Travel in the [place] Within the Last 8 Weeks: No Recent Travel Out of the Country Within the Last 8 Weeks: No - Immunization History Tetanus Immunization: Unsure Hx Influenza Vaccine This Season: No Medications and Allergies Active Medications: Active Medications Acetaminophen (Tylenol) 650 mg PO Q4H PRN PRN Reason: Temp > 100.4 Al Hydroxide/Mg Hydroxide (Milk Of Magnesia Liq) 30 ml PO Q12H PRN PRN Reason: Mild Constipation Bisacodyl (Dulcolax Supp) 10 mg RECTAL DAILY PRN PRN Reason: SEVERE CONSITIPATION Diphenhydramine HCl (Benadryl) 25 mg PO Q6H PRN PRN Reason: ITCHING Sodium Chloride (Ns Inj) 1,000 mls @ 100 mls/hr IV.CONT .Q10H [facility] Last Admin: 10/28/17 06:11 Dose: 100 mls/hr Pharmacy Profile Note (Vancomycin Consult Pharmacy) 0 mls @ 0 mls/hr OTHER UNSCH [facility] Vancomycin HCl 1,300 mg/ (Sodium Chloride) 526 mls @ 250 mls/hr IV.SIG Q12H [facility] Last Infusion: 10/28/17 09:21 Dose: Infused Lactulose (Lactulose Liq) 30 ml PO DAILY PRN PRN Reason: SEVERE CONSITIPATION Lorazepam (Ativan Inj) 1 mg IV.PUSH Q4H PRN PRN Reason: WITHDRAWAL/AGITATION Last Admin: 10/28/17 03:34 Dose: 1 mg Miscellaneous Information ([facility] [place] [facility] Ordered Lab Info) 0 each OTHER ONCE ONE Stop: 10/29/17 05:46 Morphine Sulfate (Msir) 30 mg PO Q12H [facility] Last Admin: 10/28/17 03:34 Dose: 30 mg Mupirocin (Bactroban 2% Oint) 1 applicatio TOPICAL DAILY [facility] Ondansetron HCl (Zofran Odt) 4 mg PO Q6H PRN PRN Reason: NAUSEA OR VOMITING Oxycodone/Acetaminophen (Percocet 10/325 Mg) 1 tab PO Q4H PRN PRN Reason: Pain 1-10 Last Admin: 10/28/17 03:34 Dose: 1 tab Senna/Docusate Sodium (Gisell-Colace) 1 tab PO BID [facility] Last Admin: 10/28/17 09:22 Dose: Not Given Sennosides (Senokot) 17.2 mg PO Q12H PRN PRN Reason: Moderate Constipation Allergies Allergy/AdvReac Type Severity Reaction Status Date / Time penicillin G Allergy Intermediate Rash Verified 10/25/17 16:34 chemical allergy Allergy Severe anaphalacti Uncoded 09/27/12 00:06 c Home Medications Medication Instructions Recorded Confirmed Type cyclobenzaprine 10 mg PO TID 10/25/17 10/25/17 History morphine 30 mg PO Q12H 10/25/17 10/25/17 History oxycodone-acetaminophen [Percocet] 1 tab PO Q4-6H PRN 10/25/17 10/25/17 History Exam Vital signs: Vital Signs 10/27/17 12:00 10/27/17 16:00 10/27/17 20:00 Temperature 97.6 F 97.8 F 97.5 F L Pulse Rate 80 82 95 H Respiratory Rate 16 16 18 Blood Pressure 134/79 140/79 138/83 Pulse Oximetry 95 96 98 10/28/17 00:00 10/28/17 04:00 10/28/17 08:00 Temperature 97.8 F 97.7 F 97.5 F L Pulse Rate 83 75 92 H Respiratory Rate 18 18 20 Blood Pressure 123/72 120/69 136/75 Pulse Oximetry 94 L 96 93 L Intake & Output 10/27/17 10/28/17 10/28/17 18:59 06:59 18:59 Intake Total 1840 / 1840 1886 / 1886 526 / 526 Output Total 900 / 900 Balance 940 / 940 1886 / 1886 526 / 526 Weight 66 kg Intake: IV 1000 / 1000 1526 / 1526 526 / 526 NS Inj 1,000 ML @ 100 mls/hr IV 1000 / 1000 1000 / 1000 .CONT .Q10H [facility] Rx#:[id number] Vancomycin Inj 1,300 MG In NS 526 / 526 526 / 526 Inj 500 ML @ 250 mls/hr IV.SIG Q12H [facility] Rx#:[id number] Oral 840 / 840 360 / 360 Output: Urine 900 / 900 Other: # Voids 5 # Bowel Movements 1 0 - Constitutional no acute distress, average body habitus - Routine HEENT Exam Head: Present: normocephalic, atraumatic Eye: Present: EOMI, PERRL ENT: Present: mucous membranes moist, oropharynx clear - Routine Neck Exam Comments: prominent kyphosis of cervical spine Very large stage II-III wound clean based with moderate odorless serous dc - Routine Respiratory Exam Present: CTA bilaterally Comments: good effort - Routine Cardiovascular Exam Present: RRR, S1, S2 Comments: no murmurs well perfused perifery - Routine Abdominal Exam Present: soft, normoactive bowel sounds Comments: not tender not disteded no organomegaly - Routine Extremities Exam Comments: no cyanosis, clubbing or edema full range of motion - Routine Skin Exam Comments: wound describes as above o/w no rash, no echymosis warm to touch - Routine Neurological Exam Present: alert, oriented X3, CN II-XII intact, moving all extremities, vision grossly intact, hearing grossly intact, normal speech - Routine Psychiatric Exam Present: normal affect (calm, but non coperative and irritable) Results - Labs CBC & Chem 7: 10/29/17 12:15 10/29/17 08:06 Labs: Laboratory Results - last 24 hr 10/28/17 10/28/17 08:30 08:30 WBC 4.6 RBC 4.00 Hgb 7.8 L Hct 25.1 L MCV 62.8 L MCH 19.6 L MCHC 31.2 L RDW 28.5 H Plt Count 301 MPV 8.4 Prelim Diff (Auto) Manual diff required WBC Differential Manual diff final Seg Neuts % (Manual) 69 Lymphocytes % (Manual) 19 Monocytes % (Manual) 6 Eosinophils % (Manual) 6 H Abs Neuts (Manual) 3.2 Differential Comment . Platelet Estimate Normal Platelet Morphology Normal Dimorphic RBCs Present H Ovalocytes 1+ H Acanthocytes (Spur) Occ H Sodium 142 Potassium 3.7 Chloride 113 H Carbon Dioxide 21.4 Anion Gap 8 BUN 7 Creatinine 0.56 Estimated GFR Greater than 89 Random Glucose 68 L Calcium 8.0 L - Imaging Cervical Spine MRI 10/25/17 17:07 CONCLUSION: 1. Large soft tissue defect posteriorly extending from just below the skull base to C7-T1 with extensive involvement subcutaneous tissues without deep space abscess or obvious dural involvement within the cervical cord. 2. I don't see a evidence for osteomyelitis in the vertebral bodies. 3. Spinous processes may be exposed. 4. Correlation with plain films and noncontrast CT scan would be of benefit. 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 Good quality stury, recommended no further imaging ESR is > 140 ? source Large skin wound over posterior neck aw conpulsive picking, infected with strepp sppm, MSSA severe microcytic anemia cont abx (ancef) pt needs w/u for her anemia further rec's to follow
[2017-10-28] MEDS: ceFAZolin 2 GM Premix Inj 2 GM/50 ML PIGGYBACK IV.SIG SCH ×2 (17:08→22:39)
[2017-10-29] MEDS: Morphine Sulfate 15 MG IR Tablet PO SCH ×2 (03:27→15:08)
[2017-10-29] MEDS: oxyCODONE/Acetaminophen 10/325 Tablet PO PRN ×4 (03:33→21:35)
[2017-10-29] MEDS: ceFAZolin 2 GM Premix Inj 2 GM/50 ML PIGGYBACK IV.SIG SCH ×3 (05:30→21:29)
[2017-10-29] MEDS ORDERED: Pharmacy Ordered Lab Info OTHER ONE (05:45)
[2017-10-29] MEDS: Senna/Docusate Sodium 8.6/50 MG Tablet PO SCH ×2 (09:20→21:32)
[2017-10-29 09:55] LABS: Anion Gap 8 meq/L (5-15); Blood Urea Nitrogen 5 mg/dL (7-18); Calcium 8.1 mg/dL (8.5-10.1); Carbon Dioxide 26.6 meq/L (21.0-32.0); Chloride 107 meq/L (98-107); Glomerular Filtration Rate Greater Than 89 mL/min (>89); Glucose,Random 88 mg/dL (74-106); Potassium 4.2 meq/L (3.5-5.1)
[2017-10-29 09:57] LABS: Iron 24 mcg/dL (50-170)
[2017-10-29 10:14] LABS: Sodium 142 meq/L (136-145)
[2017-10-29 10:22] LABS: % Iron Saturation 7.9 % (20-50); Ferritin 27 ng/mL (8-252); Total Iron Binding Capacity 305 mcg/dL (250-450); Vitamin B12 381 pg/mL (193-986)
[2017-10-29] MEDS: Sod Chloride 0.9% Inj 1,000 ML IV.CONT SCH ×2 (11:55→21:07)
[2017-10-29 12:39] LABS: Baso % (Auto) 0.3 % (0.0-2.0); Eos # (Auto) 0.4 th/mm3 (0.0-0.4); Hematocrit 27.6 % (35.0-46.0); Hemoglobin 9.2 gm/dL (11.6-15.3); Lymph # (Auto) 1.3 th/mm3 (1.0-4.8); Lymph % (Auto) 19.5 % (9.0-44.0); Mean Corpuscular HGB Conc 33.3 % (32.0-36.0); Mean Corpuscular Hemoglobin 20.4 pg (27.0-34.0); Mean Corpuscular Volume 61.2 fL (80.0-100.0); Mean Platelet Volume 8.2 fL (7.0-11.0); Mono # (Auto) 0.3 th/mm3 (0.0-0.9); Mono % (Auto) 4.8 % (0.0-8.0); Neut # (Auto) 4.6 th/mm3 (1.8-7.7); Neut % (Auto) 69.4 % (16.0-70.0); Platelet Count 358 th/mm3 (150-450); Red Blood Count 4.51 mil/mm3 (4.00-5.30); Red Cell Distribution Width 30.2 % (11.6-17.2); White Blood Count 6.6 th/mm3 (4.0-11.0)
[2017-10-29 13:17] LABS: Dimorphic RBC Present; Ovalocytes 1+
--- NOTE | 2017-10-29 15:39 | P.PNIM ---
Subjective Interval history: No overnight events, no fever. Neck pain stable, not worsening. Blood cultures from 729 still negative. Physical Exam Vital signs: Vital Signs 10/28/17 16:00 10/28/17 20:00 10/29/17 04:00 Temperature 98.2 F 98.2 F 99.2 F Pulse Rate 101 H 92 H 79 Respiratory Rate 20 18 18 Blood Pressure 163/93 H 126/68 119/69 Pulse Oximetry 97 92 L 96 10/29/17 08:00 10/29/17 12:00 Temperature 98.6 F 98.2 F Pulse Rate 99 H 105 H Respiratory Rate 18 18 Blood Pressure 132/80 137/97 H Pulse Oximetry 91 L 94 L Intake & Output 10/28/17 10/29/17 10/29/17 18:59 06:59 18:59 Intake Total 2296 / 2296 1080 / 1080 Output Total 2800 / 2800 Balance -504 / -504 1080 / 1080 Weight 68 kg Intake: IV 1576 / 1576 100 / 100 NS Inj 1,000 ML @ 100 mls/hr IV 1000 / 1000 .CONT .Q10H [facility] Rx#:[id number] Vancomycin Inj 1,300 MG In NS 526 / 526 Inj 500 ML @ 250 mls/hr IV.SIG Q12H [facility] Rx#:[id number] Ancef 2 GM Premix Inj 2 gm In 50 / 50 100 / 100 50 ml @ 100 mls/hr IV.SIG Q8H [facility] Rx#:[id number] Oral 720 / 720 980 / 980 Output: Urine 2800 / 2800 Other: # Voids 4 Date of Last Bowel Movement 10/28/17 # Bowel Movements 2 2 Narrative: GENERAL: Nondistressed, sleeping. SKIN: Warm and dry. Posterior neck with very large stage III wound, purulent drainage, minimally surrounding erythema and edema. CARDIOVASCULAR: Regular rate and rhythm. No murmur appreciated. RESPIRATORY: No accessory muscle use. Clear to auscultation. Breath sounds equal bilaterally. GASTROINTESTINAL: Abdomen soft, non-tender, nondistended. Normoactive bowel sounds x4. MUSCULOSKELETAL: No obvious deformities. Extremities without clubbing, cyanosis , or edema. NEUROLOGICAL: Awake and alert, oriented 3. No obvious cranial nerve deficits. Moving all extremities spontaneously. Results - Labs CBC & Chem 7: 10/29/17 12:15 10/29/17 08:06 Laboratory Results - last 24 hr 10/29/17 10/29/17 08:06 12:15 WBC 6.6 RBC 4.51 Hgb 9.2 L Hct 27.6 L MCV 61.2 L MCH 20.4 L MCHC 33.3 RDW 30.2 H Plt Count 358 MPV 8.2 Prelim Diff (Auto) Slide review pending Neut % (Auto) 69.4 Lymph % (Auto) 19.5 Borden % (Auto) 4.8 Eos % (Auto) 6.0 H Baso % (Auto) 0.3 Neut # (Auto) 4.6 Lymph # (Auto) 1.3 Borden # (Auto) 0.3 Eos # (Auto) 0.4 Baso # (Auto) 0.0 WBC Differential . Diff Scan Auto diff confirmed Differential Comment . Dimorphic RBCs Present H Ovalocytes 1+ H Sodium 142 Potassium 4.2 Chloride 107 Carbon Dioxide 26.6 Anion Gap 8 BUN 5 L Creatinine 0.62 Estimated GFR Greater than 89 Random Glucose 88 Calcium 8.1 L Iron 24 L TIBC 305 % Saturation 7.9 L Ferritin 27 Vitamin B12 381 Folate 8.0 Microbiology 10/25/17 17:10 Blood - Peripheral Aerobic Blood Culture - Preliminary No growth in 4 days 10/25/17 17:10 Blood - Peripheral Anaerobic Blood Culture - Preliminary No growth in 4 days 10/25/17 17:00 Blood - Peripheral Aerobic Blood Culture - Preliminary No growth in 4 days 10/25/17 17:00 Blood - Peripheral Anaerobic Blood Culture - Preliminary No growth in 4 days Assessment and Plan - Assessment (1) Open neck wound Code(s): S11.90XA - Unspecified open wound of unspecified part of neck, initial encounter Status: Acute (2) Skin-picking disorder Code(s): F42.4 - Excoriation (skin-picking) disorder Status: Acute (3) IVDU (intravenous drug user) Code(s): F19.90 - Other psychoactive substance use, unspecified, uncomplicated Status: Acute (4) Anemia Code(s): D64.9 - Anemia, unspecified Status: Acute - Plan Open Neck Wound: extensive posterior cervical wound from self-picking, + exposed muscle/tissue. Hx of C-spine osteo and hardware placement. -MRI C-Spine w/ large soft tissue defect extending from skull base to C7-T1 with extensive involvement of subcutaneous tissues, no abscess or osteomyelitis , spinous processes may be exposed -wound culture with strep and MSSA -continue antibiotics with IV Ancef, per ID -consult Plastic Surgery, seen by Dr. Stanley, wound is nonsurgical at this time. Recommends antihistamine for itching, consider consulting wound nurses for consideration of shaving some of the patient's occipital hair -consult placed to wound care to consider vac placement per Dr. Stanley -ID consulted, No clear evidence of osteomyelitis. Continue Ancef for now per infectious disease. Skin Picking Disorder: Pt w/ compulsive skin picking resulting in above wound. -Consult Psych who added Klonopin for anxiety Severe iron deficiency anemia-hemoglobin 7 admission, status post 2 units of packed red blood cells. Folate and vitamin B12 within normal limits. Start iron sucrose. IVDU: Chronic, ongoing -Ativan prn for agitation/withdrawal Chronic neck pain: patient requesting that her regularly scheduled pain medication be restarted -Continue Morphine ER 30 mg BID scheduled and percocet 10/325 mg as needed, verified in E Force DVT Prophylaxis: SCD/Teds Discharge Planning: Discharge pending further clinical improvement. On IV antibiotics. No plans for discharge yet.
[2017-10-29] MEDS ORDERED: Iron Sucrose Inj 100 MG/5 ML Vial IV.PUSH ONE (17:00)
[2017-10-30] MEDS: Sod Chloride 0.9% Inj 1,000 ML IV.CONT SCH ×2 (01:52→15:06)
[2017-10-30] MEDS: oxyCODONE/Acetaminophen 10/325 Tablet PO PRN ×5 (01:56→21:15)
[2017-10-30] MEDS: Morphine Sulfate 15 MG IR Tablet PO SCH ×2 (04:20→15:06)
[2017-10-30] MEDS: ceFAZolin 2 GM Premix Inj 2 GM/50 ML PIGGYBACK IV.SIG SCH ×3 (05:43→21:15)
[2017-10-30] MEDS: Senna/Docusate Sodium 8.6/50 MG Tablet PO SCH ×2 (08:12→21:15)
--- NOTE | 2017-10-30 15:48 | P.PNIM ---
Subjective Interval history: Still with suppurative discharge from her neck , no fever, no chills, moderate pain, controlled. Physical Exam Vital signs: Vital Signs 10/29/17 16:00 10/29/17 20:00 10/30/17 00:00 Temperature 97.7 F 98.3 F 99.2 F Pulse Rate 92 H 104 H 81 Respiratory Rate 20 18 18 Blood Pressure 151/73 H 117/64 120/79 Pulse Oximetry 94 L 93 L 94 L 10/30/17 05:39 10/30/17 08:00 10/30/17 12:00 Temperature 97.8 F 97.5 F L 97.1 F L Pulse Rate 84 85 100 H Respiratory Rate 18 20 20 Blood Pressure 139/91 H 136/81 159/98 H Pulse Oximetry 94 L 93 L 95 Intake & Output 10/29/17 10/30/17 10/30/17 18:59 06:59 18:59 Intake Total 50 / 50 480 / 480 1050 / 1050 Balance 50 / 50 480 / 480 1050 / 1050 Intake: IV 50 / 50 100 / 100 1050 / 1050 NS Inj 1,000 ML @ 100 mls/hr IV 1000 / 1000 .CONT .Q10H [facility] Rx#:[id number] Ancef 2 GM Premix Inj 2 gm In 50 / 50 100 / 100 50 / 50 50 ml @ 100 mls/hr IV.SIG Q8H [facility] Rx#:[id number] Oral 380 / 380 Other: # Voids 3 Narrative: GENERAL: Nondistressed, sleeping. SKIN: Warm and dry. Posterior neck with very large stage III wound, purulent drainage, minimally surrounding erythema and edema. CARDIOVASCULAR: Regular rate and rhythm. No murmur appreciated. RESPIRATORY: No accessory muscle use. Clear to auscultation. Breath sounds equal bilaterally. GASTROINTESTINAL: Abdomen soft, non-tender, nondistended. Normoactive bowel sounds x4. MUSCULOSKELETAL: No obvious deformities. Extremities without clubbing, cyanosis , or edema. NEUROLOGICAL: Awake and alert, oriented 3. No obvious cranial nerve deficits. Moving all extremities spontaneously. Results - Labs CBC & Chem 7: 10/29/17 12:15 10/29/17 08:06 Microbiology 10/25/17 17:10 Blood - Peripheral Aerobic Blood Culture - Final No growth in 5 days 10/25/17 17:10 Blood - Peripheral Anaerobic Blood Culture - Final No growth in 5 days 10/25/17 17:00 Blood - Peripheral Aerobic Blood Culture - Final No growth in 5 days 10/25/17 17:00 Blood - Peripheral Anaerobic Blood Culture - Final No growth in 5 days Assessment and Plan - Assessment (1) Open neck wound Code(s): S11.90XA - Unspecified open wound of unspecified part of neck, initial encounter Status: Acute (2) Skin-picking disorder Code(s): F42.4 - Excoriation (skin-picking) disorder Status: Acute (3) IVDU (intravenous drug user) Code(s): F19.90 - Other psychoactive substance use, unspecified, uncomplicated Status: Acute (4) Anemia Code(s): D64.9 - Anemia, unspecified Status: Acute - Plan Open Neck Wound: extensive posterior cervical wound from self-picking, + exposed muscle/tissue. Hx of C-spine osteo and hardware placement. -MRI C-Spine w/ large soft tissue defect extending from skull base to C7-T1 with extensive involvement of subcutaneous tissues, no abscess or osteomyelitis , spinous processes may be exposed -wound culture with strep and MSSA -consulted Plastic Surgery, seen by Dr. Stanley, wound is nonsurgical at this time. Recommends antihistamine for itching, consider consulting wound nurses for consideration of shaving some of the patient's occipital hair -consult placed to wound care to consider vac placement per Dr. Stanley -ID consulted, No clear evidence of osteomyelitis. Continue Ancef for now per infectious disease. Skin Picking Disorder: Pt w/ compulsive skin picking resulting in above wound. -Consult Psych who added Klonopin for anxiety Severe iron deficiency anemia-hemoglobin 7 admission, status post 2 units of packed red blood cells. Folate and vitamin B12 within normal limits. Continue iron sucrose. IVDU: Chronic, ongoing -Ativan prn for agitation/withdrawal Chronic neck pain: patient requesting that her regularly scheduled pain medication be restarted -Continue Morphine ER 30 mg BID scheduled and percocet 10/325 mg as needed, verified in E Force DVT Prophylaxis: SCD/Teds Discharge Planning: Discharge pending further clinical improvement. On IV antibiotics, d/c pending improvement of neck wound and ID clearance.
[2017-10-31] MEDS: oxyCODONE/Acetaminophen 10/325 Tablet PO PRN ×6 (01:38→22:49)
[2017-10-31] MEDS: Morphine Sulfate 15 MG IR Tablet PO SCH ×2 (03:20→18:56)
[2017-10-31] MEDS: ceFAZolin 2 GM Premix Inj 2 GM/50 ML PIGGYBACK IV.SIG SCH ×3 (05:41→22:49)
[2017-10-31] MEDS: Sod Chloride 0.9% Inj 1,000 ML IV.CONT SCH ×2 (05:43→18:30)
[2017-10-31] MEDS: Senna/Docusate Sodium 8.6/50 MG Tablet PO SCH ×2 (08:55→20:07)
--- NOTE | 2017-10-31 15:11 | P.PN ---
Subjective Interval history: complains of "mild" discomfort nape area denies any nausea or vomiting Physical Exam Vital signs: Vital Signs 10/30/17 16:00 10/30/17 20:00 10/31/17 00:00 Temperature 98.3 F 98.8 F 97.7 F Pulse Rate 100 H 96 H 88 Respiratory Rate 18 16 16 Blood Pressure 140/85 109/63 120/75 Pulse Oximetry 93 L 96 96 10/31/17 04:00 10/31/17 08:00 10/31/17 12:00 Temperature 98.1 F 98.3 F 98.2 F Pulse Rate 79 68 66 Respiratory Rate 18 16 16 Blood Pressure 123/81 132/64 134/66 Pulse Oximetry 95 98 98 Intake & Output 10/30/17 10/31/17 10/31/17 18:59 06:59 18:59 Intake Total 1530 / 1530 1530 / 1530 Balance 1530 / 1530 1530 / 1530 Weight 66.5 kg Intake: IV 1050 / 1050 1050 / 1050 NS Inj 1,000 ML @ 100 mls/hr IV 1000 / 1000 1000 / 1000 .CONT .Q10H [facility] Rx#:[id number] Ancef 2 GM Premix Inj 2 gm In 50 / 50 50 / 50 50 ml @ 100 mls/hr IV.SIG Q8H [facility] Rx#:[id number] Oral 480 / 480 480 / 480 Other: # Voids 3 3 Date of Last Bowel Movement 10/28/17 Narrative: GENERAL:no distress SKIN: Warm and dry. Neck- nape area - very large stage III wound, , surrounding erythema and edema. now drainage appears clear and thin CARDIOVASCULAR: Regular rate and rhythm. No murmur appreciated. RESPIRATORY: No accessory muscle use. Clear to auscultation. Breath sounds equal bilaterally. GASTROINTESTINAL: Abdomen soft, non-tender, nondistended. Normoactive bowel sounds x4. MUSCULOSKELETAL: No obvious deformities. Extremities without clubbing, cyanosis , or edema. NEUROLOGICAL: Awake and alert, oriented 3. No obvious cranial nerve deficits. Moving all extremities spontaneously. Results - Labs CBC & Chem 7: 10/29/17 12:15 10/29/17 08:06 Assessment and Plan - Assessment (1) Open neck wound Code(s): S11.90XA - Unspecified open wound of unspecified part of neck, initial encounter Status: Acute (2) Skin-picking disorder Code(s): F42.4 - Excoriation (skin-picking) disorder Status: Acute (3) IVDU (intravenous drug user) Code(s): F19.90 - Other psychoactive substance use, unspecified, uncomplicated Status: Acute (4) Anemia Code(s): D64.9 - Anemia, unspecified Status: Acute - Plan 47 years old female Open Nape/posterior aspect of Neck Wound: extensive posterior cervical wound from self-picking, +exposed muscle/tissue. Hx of C-spine osteo and hardware placement. -MRI C-Spine w/ large soft tissue defect extending from skull base to C7-T1 with extensive involvement of subcutaneous tissues, no abscess or osteomyelitis , spinous processes may be exposed -wound culture with strep and MSSA -consulted Plastic Surgery, seen by Dr. Stanley, wound is nonsurgical at this time. Recommends antihistamine for itching, wound care team nurse ff Cleanse posterior neck wound with normal saline pat dry, Apply Cavilon skin prep to periwound. Apply Bactroban 2% oint to wound base and cover with Maxorb ll cut to fit wound base ,secure with border gauze dressing. Change dressing daily or as needed for dislodgement. Sign and date all dressing Follow up with out patient wound center. OP ff up - wound care center -ID ff No clear evidence of osteomyelitis. Continue Ancef for now per infectious disease. Skin Picking Disorder: Pt w/ compulsive skin picking resulting in above wound. -Consult Psych who added Klonopin for anxiety Severe iron deficiency anemia-hemoglobin 7 admission, status post 2 units of packed red blood cells. Folate and vitamin B12 within normal limits. Continue iron sucorse start Ferrous sulfate 325 mg po bid IVDU: Chronic, ongoing -Ativan prn for agitation/withdrawal- decrease IV ativan to q 6 prn Chronic neck pain: patient scheduled pain medication restarted -Continue Morphine ER 30 mg BID scheduled and percocet 10/325 mg as needed, verified in E Force DVT Prophylaxis: SCD/Teds
[2017-10-31] MEDS: Ferrous Sulfate 325 MG Tablet PO SCH (18:57)
[2017-11-01] MEDS: Morphine Sulfate 15 MG IR Tablet PO SCH ×2 (04:07→16:35)
[2017-11-01] MEDS: ceFAZolin 2 GM Premix Inj 2 GM/50 ML PIGGYBACK IV.SIG SCH ×3 (05:40→22:45)
[2017-11-01] MEDS: oxyCODONE/Acetaminophen 10/325 Tablet PO PRN ×4 (08:46→21:56)
[2017-11-01] MEDS: Senna/Docusate Sodium 8.6/50 MG Tablet PO SCH ×2 (08:47→21:56)
--- NOTE | 2017-11-01 11:32 | P.PN ---
Subjective Interval history: no complains resting cofortably watching a movie on her laptop Physical Exam Vital signs: Vital Signs 10/31/17 12:00 10/31/17 16:00 10/31/17 20:00 Temperature 98.2 F 98.2 F 97.3 F L Pulse Rate 66 70 110 H Respiratory Rate 16 16 18 Blood Pressure 134/66 134/64 121/78 Pulse Oximetry 98 99 97 11/01/17 00:00 11/01/17 04:00 11/01/17 08:00 Temperature 97.3 F L 97.2 F L 98.1 F Pulse Rate 84 80 78 Respiratory Rate 18 18 16 Blood Pressure 111/59 L 107/56 L 114/65 Pulse Oximetry 92 L 91 L 94 L Intake & Output 10/31/17 11/01/17 11/01/17 18:59 06:59 18:59 Intake Total 460 / 460 100 / 100 Balance 460 / 460 100 / 100 Intake: IV 100 / 100 Ancef 2 GM Premix Inj 2 gm In 100 / 100 50 ml @ 100 mls/hr IV.SIG Q8H [facility] Rx#:[id number] Oral 460 / 460 Other: # Voids 6 0 # Bowel Movements 0 Narrative: GENERAL:no distress SKIN: Warm and dry. Neck- nape area - very large stage III wound, , surrounding erythema and edema. minimal drainage- clear CARDIOVASCULAR: Regular rate and rhythm. No murmur appreciated. RESPIRATORY: No accessory muscle use. Clear to auscultation. Breath sounds equal bilaterally. GASTROINTESTINAL: Abdomen soft, non-tender, nondistended. Normoactive bowel sounds x4. MUSCULOSKELETAL: No obvious deformities. Extremities without clubbing, cyanosis , or edema. NEUROLOGICAL: Awake and alert, oriented 3. No obvious cranial nerve deficits. Moving all extremities spontaneously. Results - Labs CBC & Chem 7: 10/29/17 12:15 10/29/17 08:06 Assessment and Plan - Assessment (1) Open neck wound Code(s): S11.90XA - Unspecified open wound of unspecified part of neck, initial encounter Status: Acute (2) Skin-picking disorder Code(s): F42.4 - Excoriation (skin-picking) disorder Status: Acute (3) IVDU (intravenous drug user) Code(s): F19.90 - Other psychoactive substance use, unspecified, uncomplicated Status: Acute (4) Anemia Code(s): D64.9 - Anemia, unspecified Status: Acute - Plan 47 years old female Open Nape/posterior aspect of Neck Wound: extensive posterior cervical wound from self-picking, +exposed muscle/tissue. Hx of C-spine osteo and hardware placement. -MRI C-Spine w/ large soft tissue defect extending from skull base to C7-T1 with extensive involvement of subcutaneous tissues, no abscess or osteomyelitis , spinous processes may be exposed -wound culture with strep and MSSA -Plastic Surgery, seen by Dr. Stanley, wound is nonsurgical at this time. - plan for possibly VAc placement wound care team nurse ff Cleanse posterior neck wound with normal saline pat dry, Apply Cavilon skin prep to periwound. Apply Bactroban 2% oint to wound base and cover with Maxorb ll cut to fit wound base ,secure with border gauze dressing. Change dressing daily or as needed for dislodgement. Sign and date all dressing Follow up with out patient wound center if DC -ID ff No clear evidence of osteomyelitis. Continue Ancef for now per infectious disease. Skin Picking Disorder: Pt w/ compulsive skin picking resulting in above wound. -Consult Psych who added Klonopin for anxiety Severe iron deficiency anemia-hemoglobin 7 admission, status post 2 units of packed red blood cells. per patiet severino anemic- family history of Mediterranean tuype of anemia no abnormal vaginal bleeding- per patient cycle stopped over a year ago - no melena or hematochezia Folate and vitamin B12 within normal limits. received IV iron sucrose start Ferrous sulfate 325 mg po bid IVDU: Chronic, ongoing -Ativan prn for agitation/withdrawal- decrease IV ativan to q 6 prn - counselled Cervical disc disease - Chronic neck pain: patient scheduled pain medication restarted -Continue Morphine ER 30 mg BID scheduled and percocet 10/325 mg as needed, verified in E Force - ff by Dr. Oliver as OP- per patient - plan was for eventual neck surgery DVT Prophylaxis: SCD/Teds
[2017-11-01] MEDS: Ferrous Sulfate 325 MG Tablet PO SCH ×2 (13:10→16:37)
[2017-11-02] MEDS: oxyCODONE/Acetaminophen 10/325 Tablet PO PRN ×5 (01:47→23:18)
[2017-11-02] MEDS: Acetaminophen 325 MG Tablet PO PRN (01:49)
[2017-11-02] MEDS: Morphine Sulfate 15 MG IR Tablet PO SCH ×2 (04:08→16:32)
[2017-11-02] MEDS: ceFAZolin 2 GM Premix Inj 2 GM/50 ML PIGGYBACK IV.SIG SCH ×3 (05:45→21:07)
[2017-11-02] MEDS: Senna/Docusate Sodium 8.6/50 MG Tablet PO SCH ×2 (08:29→21:06)
--- NOTE | 2017-11-02 10:52 | P.PN ---
Subjective Interval history: neck discomfort- from chronic neck disc disease no diarrhea,. nauea or vomiting voiding well Physical Exam Vital signs: Vital Signs 11/01/17 16:00 11/01/17 20:00 11/02/17 00:00 Temperature 98.3 F 97.2 F L 99.6 F Pulse Rate 110 H 115 H 117 H Respiratory Rate 16 20 22 Blood Pressure 124/68 115/78 137/79 Pulse Oximetry 99 96 99 11/02/17 02:17 11/02/17 04:00 11/02/17 08:00 Temperature 98.1 F 98.1 F Pulse Rate 110 H 105 H Respiratory Rate 20 18 20 Blood Pressure 101/56 L 98/65 L Pulse Oximetry 96 98 Intake & Output 11/01/17 11/02/17 11/02/17 18:59 06:59 18:59 Intake Total 510 / 510 460 / 460 Output Total 6 / 6 Balance 504 / 504 460 / 460 Weight 66.2 kg Intake: IV 50 / 50 100 / 100 Ancef 2 GM Premix Inj 2 gm In 50 / 50 100 / 100 50 ml @ 100 mls/hr IV.SIG Q8H CJ Rx#:[id number] Oral 460 / 460 360 / 360 Output: Urine / 6 Other: # Voids 1 Date of Last Bowel Movement 10/31/17 # Bowel Movements 0 Narrative: GENERAL:no distress SKIN: Warm and dry. Neck- nape area - very large stage III wound, , surrounding erythema . minimal drainage- clear CARDIOVASCULAR: Regular rate and rhythm. No murmur appreciated. RESPIRATORY: No accessory muscle use. Clear to auscultation. Breath sounds equal bilaterally. GASTROINTESTINAL: Abdomen soft, non-tender Normoactive bowel sounds x4. MUSCULOSKELETAL: No obvious deformities. Extremities without clubbing, cyanosis , or edema. NEUROLOGICAL: Awake and alert, oriented 3. No obvious cranial nerve deficits. Moving all extremities spontaneously. Results - Labs CBC & Chem 7: 10/29/17 12:15 10/29/17 08:06 Assessment and Plan - Assessment (1) Open neck wound Code(s): S11.90XA - Unspecified open wound of unspecified part of neck, initial encounter Status: Acute (2) Skin-picking disorder Code(s): F42.4 - Excoriation (skin-picking) disorder Status: Acute (3) IVDU (intravenous drug user) Code(s): F19.90 - Other psychoactive substance use, unspecified, uncomplicated Status: Acute (4) Anemia Code(s): D64.9 - Anemia, unspecified Status: Acute - Plan 47 years old female Open Nape/posterior aspect of Neck Wound: extensive posterior cervical wound from self-picking, +exposed muscle/tissue. Hx of C-spine osteo and hardware placement. -MRI C-Spine w/ large soft tissue defect extending from skull base to C7-T1 with extensive involvement of subcutaneous tissues, no abscess or osteomyelitis , spinous processes may be exposed -wound culture with strep and MSSA -Plastic Surgery, seen by Dr. Stanley, wound is nonsurgical at this time. - plan for eventual- VAc placement wound care team nurse ff Cleanse posterior neck wound with normal saline pat dry, Apply Cavilon skin prep to periwound. Apply Bactroban 2% oint to wound base and cover with Maxorb ll cut to fit wound base ,secure with border gauze dressing. Change dressing daily or as needed for dislodgement. Sign and date all dressing Follow up with out patient wound center if DC -ID ff No clear evidence of osteomyelitis. Continue Ancef for now per infectious disease. Skin Picking Disorder: Pt w/ compulsive skin picking resulting in above wound. - Psych who added Klonopin for anxiety Severe iron deficiency anemia-hemoglobin 7 admission, status post 2 units of packed red blood cells. per patiet severino anemic- family history of Mediterranean tuype of anemia no abnormal vaginal bleeding- per patient cycle stopped over a year ago - no melena or hematochezia Folate and vitamin B12 within normal limits. received IV iron sucrose started on Ferrous sulfate 325 mg po bid IVDU: Chronic, ongoing -change to po Ativan prn q 8 Cervical disc disease - Chronic neck pain: patient scheduled pain medication restarted -Continue Morphine ER 30 mg BID scheduled and percocet 10/325 mg as needed, verified in [facility] - ff by Dr. Oliver as OP- per patient - plan was for eventual neck surgery DVT Prophylaxis: SCD/Teds
[2017-11-02] MEDS: Ferrous Sulfate 325 MG Tablet PO SCH ×2 (12:39→16:32)
[2017-11-02] MEDS: LORazepam 1 MG Tablet PO PRN ×2 (12:42→21:06)
--- NOTE | 2017-11-02 20:12 | P.PNID ---
Subjective Remarks: better no fever c/o new L foream swelliung, pain aw IV Antibiotics: cefazoline Allergies/Adverse Reactions: Allergies penicillin G Allergy (Intermediate, Verified 10/25/17 16:34) Rash Has taken Keflex without any problem chemical allergy Allergy (Severe, Uncoded 09/27/12 00:06) anaphalactic Objective Vital Signs 11/02/17 00:00 11/02/17 02:17 11/02/17 04:00 Temperature 99.6 F 98.1 F Pulse Rate 117 H 110 H Respiratory Rate 22 20 18 Blood Pressure 137/79 101/56 L Pulse Oximetry 99 96 11/02/17 08:00 11/02/17 12:00 11/02/17 15:52 Temperature 98.1 F 98.9 F 98.5 F Pulse Rate 105 H 100 H 99 H Respiratory Rate 20 20 20 Blood Pressure 98/65 L 109/54 L 110/64 Pulse Oximetry 98 99 100 Intake & Output 11/02/17 11/02/17 11/03/17 06:59 18:59 06:59 Intake Total 460 / 460 610 / 610 Balance 460 / 460 610 / 610 Weight 66.2 kg Intake: IV 100 / 100 50 / 50 Ancef 2 GM Premix Inj 2 gm In 100 / 100 50 / 50 50 ml @ 100 mls/hr IV.SIG Q8H CJ Rx#:[id number] Oral 360 / 360 560 / 560 Other: # Voids 1 4 Date of Last Bowel Movement 10/31/17 Imaging: ITS Impressions Cervical Spine MRI 10/25/17 17:07 CONCLUSION: 1. Large soft tissue defect posteriorly extending from just below the skull base to C7-T1 with extensive involvement subcutaneous tissues without deep space abscess or obvious dural involvement within the cervical cord. 2. I don't see a evidence for osteomyelitis in the vertebral bodies. 3. Spinous processes may be exposed. 4. Correlation with plain films and noncontrast CT scan would be of benefit. Physical Exam: GENERAL: NAD ambulating SKIN: Warm and dry. NECK: Trachea midline. No JVD. Large but completely clean based wound alsoms of etire posterior neck with partial to full thickness skin loss and odorless clear serous drainage Marked kyphotic deformity of the neck CARDIOVASCULAR: Regular rate and rhythm. RESPIRATORY: No accessory muscle use. Clear to auscultation. Breath sounds equal bilaterally. GASTROINTESTINAL: Abdomen soft, non-tender, nondistended. Hepatic and splenic margins not palpable. MUSCULOSKELETAL: Extremities without clubbing, cyanosis, or edema. No obvious deformities. MMild edema, erythema and induration of L forrearm NEUROLOGICAL: Awake and alert. No obvious cranial nerve deficits. Motor grossly within normal limits. Five out of 5 muscle strength in the arms and legs. Normal speech. Gait normla PSYCHIATRIC: Appropriate mood and affect; insight and judgment normal. 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 Good quality stury, recommended no further imaging ESR is > 140 ? source Large skin wound over posterior neck aw conpulsive picking, infected with strepp sppm, MSSA severe microcytic anemia change ancef to keflex US L forearm
--- NOTE | 2017-11-02 21:33 | US ---
EXAM DATE: 11/02/2017 9:12 PM EDT AGE/SEX: 47 years / Female INDICATIONS: Left forearm pain and swelling at IV site. Evaluate for abscess. CLINICAL DATA: This is the patient's initial encounter. Patient reports that signs and symptoms have been present for 1 day and indicates a pain score of 6/10. MEDICAL/SURGICAL HISTORY: Anemia. IVDU. . Spinal fusion. COMPARISON: No prior exams available for comparison. FINDINGS: The soft tissues of the left arm were scanned. There are no focal fluid collections at the site of re cent IV removal. There is an enlarged lymph node adjacent to the area of redness which measures 1.4 x 0.9 x 0.8 cm; flow seen into the hilum of the node. There is echogenic thrombus within the basilic v ein with absent flow by color Doppler. CONCLUSION: 1. No evidence of abscess or focal fluid collection. 2. 1.4 cm lymph node in the area of induration. 3. Partially occlusive thrombus in the superficial basilic vein. Electronically signed by: Luigi Thomas MD 11/02/2017 9:32 PM EDT
[2017-11-03] MEDS: Morphine Sulfate 15 MG IR Tablet PO SCH ×2 (05:55→16:28)
[2017-11-03] MEDS: ceFAZolin Inj 2,000 MG in Sodium Chlor 0.9% Inj 100 ML IV.SIG SCH ×3 (05:56→21:51)
[2017-11-03] MEDS: Senna/Docusate Sodium 8.6/50 MG Tablet PO SCH ×2 (09:32→21:50)
[2017-11-03] MEDS: oxyCODONE/Acetaminophen 10/325 Tablet PO PRN ×4 (09:32→23:08)
[2017-11-03] MEDS: LORazepam 1 MG Tablet PO PRN ×2 (09:32→21:50)
--- NOTE | 2017-11-03 10:48 | P.PN ---
Subjective Interval history: afebrile complains of left arm pain- disocmfort- decrease range of motion Physical Exam Vital signs: Vital Signs 11/02/17 12:00 11/02/17 15:52 11/02/17 20:00 Temperature 98.9 F 98.5 F 98.2 F Pulse Rate 100 H 99 H 115 H Respiratory Rate 20 20 18 Blood Pressure 109/54 L 110/64 103/60 Pulse Oximetry 99 100 98 11/02/17 23:13 11/03/17 06:00 11/03/17 08:00 Temperature 98.2 F 98.4 F 97.9 F Pulse Rate 84 74 78 Respiratory Rate 18 16 17 Blood Pressure 106/53 L 108/58 L 104/55 L Pulse Oximetry 96 96 96 Intake & Output 11/02/17 11/03/17 11/03/17 18:59 06:59 18:59 Intake Total 610 / 610 290 / 290 120 / 120 Output Total 750 / 750 Balance 610 / 610 -460 / -460 120 / 120 Weight 66.1 kg Intake: IV 50 / 50 50 / 50 120 / 120 Ancef 2 GM Premix Inj 2 gm In 50 / 50 50 / 50 50 ml @ 100 mls/hr IV.SIG Q8H CJ Rx#:[id number] Ancef Inj 2,000 MG In NS Inj 120 / 120 100 ML @ 100 mls/hr IV.SIG Q8H CJ Rx#:[id number] Oral 560 / 560 240 / 240 Output: Urine 750 / 750 Other: # Voids 4 Date of Last Bowel Movement 10/31/17 # Bowel Movements 0 Narrative: GENERAL:no distress SKIN: Warm and dry. Neck- nape area - very large stage III wound, , surrounding erythema . minimal drainage- clear,no foul odor CARDIOVASCULAR: Regular rate and rhythm. No murmur appreciated. RESPIRATORY: No accessory muscle use. Clear to auscultation. Breath sounds equal bilaterally. GASTROINTESTINAL: Abdomen soft, non-tender Normoactive bowel sounds x4. MUSCULOSKELETAL: No obvious deformities. Extremities without clubbing, cyanosis , or edema. previous IV sites- with mild induration and palpable vein- L Right previous IV site mild induration NEUROLOGICAL: Awake and alert, oriented 3. No obvious cranial nerve deficits. Moving all extremities spontaneously. Results - Labs CBC & Chem 7: 10/29/17 12:15 10/29/17 08:06 - Imaging Impressions Upper Extremity Ultrasound 11/02/17 00:00 CONCLUSION: 1. No evidence of abscess or focal fluid collection. 2. 1.4 cm lymph node in the area of induration. 3. Partially occlusive thrombus in the superficial basilic vein. Assessment and Plan - Assessment (1) Open neck wound Code(s): S11.90XA - Unspecified open wound of unspecified part of neck, initial encounter Status: Acute (2) Skin-picking disorder Code(s): F42.4 - Excoriation (skin-picking) disorder Status: Acute (3) IVDU (intravenous drug user) Code(s): F19.90 - Other psychoactive substance use, unspecified, uncomplicated Status: Acute (4) Anemia Code(s): D64.9 - Anemia, unspecified Status: Acute - Plan 47 years old female Open Nape/posterior aspect of Neck Wound: extensive posterior cervical wound from self-picking, +exposed muscle/tissue. Hx of C-spine osteo and hardware placement. -MRI C-Spine w/ large soft tissue defect extending from skull base to C7-T1 with extensive involvement of subcutaneous tissues, no abscess or osteomyelitis , spinous processes may be exposed -wound culture with strep and MSSA -Plastic Surgery, seen by Dr. Stanley, wound is nonsurgical at this time. - plan for eventual- VAc placement wound care team nurse ff Cleanse posterior neck wound with normal saline pat dry, Apply Cavilon skin prep to periwound. Apply Bactroban 2% oint to wound base and cover with Maxorb ll cut to fit wound base ,secure with border gauze dressing. Change dressing daily or as needed for dislodgement. Sign and date all dressing Follow up with out patient wound center if DC -ID ff No clear evidence of osteomyelitis. antibiotics per ID Skin Picking Disorder: Pt w/ compulsive skin picking resulting in above wound. - Psych ff- added Klonopin for anxiety Severe iron deficiency anemia-hemoglobin 7 admission, status post 2 units of packed red blood cells. per patiet knonw anemic- family history of Mediterranean tuype of anemia no abnormal vaginal bleeding- per patient cycle stopped over a year ago - no melena or hematochezia Folate and vitamin B12 within normal limits. received IV iron sucrose started on Ferrous sulfate 325 mg po bid IVDU: Chronic, ongoing -change to po Ativan prn q 8- decreae dose q12 Cervical disc disease - Chronic neck pain: patient scheduled pain medication restarted -Continue Morphine ER 30 mg BID scheduled and percocet 10/325 mg as needed, verified in [facility] - ff by Dr. Oliver as OP- per patient - plan was for eventual neck surgery DVT Prophylaxis: SCD/Teds
[2017-11-03] MEDS: Ferrous Sulfate 325 MG Tablet PO SCH ×2 (11:10→16:28)
[2017-11-03 20:03] VITALS: RESP 18
[2017-11-04] MEDS: Morphine Sulfate 15 MG IR Tablet PO SCH (03:34)
[2017-11-04] MEDS: ceFAZolin Inj 2,000 MG in Sodium Chlor 0.9% Inj 100 ML IV.SIG SCH (05:03)
[2017-11-04] MEDS: oxyCODONE/Acetaminophen 10/325 Tablet PO PRN ×2 (06:14→10:31)
[2017-11-04] MEDS: Senna/Docusate Sodium 8.6/50 MG Tablet PO SCH (09:10)
--- NOTE | 2017-11-04 10:00 | P.PN ---
Subjective Interval history: afebrile, no complains of pain- arms, or neck had a shower- feels great no diarrhea Physical Exam Vital signs: Vital Signs 11/03/17 16:00 11/03/17 19:58 11/04/17 00:00 Temperature 98.0 F 98.5 F 97.8 F Pulse Rate 104 H 115 H 89 Respiratory Rate 17 18 18 Blood Pressure 115/61 118/61 108/58 L Pulse Oximetry 97 97 98 11/04/17 02:29 11/04/17 03:32 Temperature 98.9 F 98.7 F Pulse Rate 114 H Respiratory Rate 18 Blood Pressure 122/67 Pulse Oximetry 99 Intake & Output 11/03/17 11/04/17 11/04/17 18:59 06:59 18:59 Intake Total 660 / 660 720 / 720 Output Total 1100 / 1100 50 / 50 Balance -440 / -440 670 / 670 Weight 64.9 kg Intake: IV 240 / 240 240 / 240 Ancef Inj 2,000 MG In NS Inj 240 / 240 240 / 240 100 ML @ 100 mls/hr IV.SIG Q8H CJ Rx#:[id number] Oral 420 / 420 480 / 480 Output: Urine 1100 / 1100 50 / 50 Other: # Bowel Movements 0 0 Narrative: GENERAL:no distress SKIN: Warm and dry. Neck- nape area - very large stage III wound, , surrounding erythema . minimal drainage- clear,no foul odor CARDIOVASCULAR: Regular rate and rhythm. No murmur appreciated. RESPIRATORY: No accessory muscle use. Clear to auscultation. Breath sounds equal bilaterally. GASTROINTESTINAL: Abdomen soft, non-tender Normoactive bowel sounds x4. MUSCULOSKELETAL: No obvious deformities. Extremities without clubbing, cyanosis , or edema. Right UE- no cord palpable, swelling and erythema much improved + range of motion, induration resolved- soft NEUROLOGICAL: Awake and alert, oriented 3. No obvious cranial nerve deficits. Moving all extremities spontaneously. Results - Labs CBC & Chem 7: 10/29/17 12:15 10/29/17 08:06 Assessment and Plan - Assessment (1) Open neck wound Code(s): S11.90XA - Unspecified open wound of unspecified part of neck, initial encounter Status: Acute (2) Skin-picking disorder Code(s): F42.4 - Excoriation (skin-picking) disorder Status: Acute (3) IVDU (intravenous drug user) Code(s): F19.90 - Other psychoactive substance use, unspecified, uncomplicated Status: Acute (4) Anemia Code(s): D64.9 - Anemia, unspecified Status: Acute - Plan 47 years old female Open Nape/posterior aspect of Neck Wound: extensive posterior cervical wound from self-picking, +exposed muscle/tissue. Hx of C-spine osteo and hardware placement. -MRI C-Spine w/ large soft tissue defect extending from skull base to C7-T1 with extensive involvement of subcutaneous tissues, no abscess or osteomyelitis , spinous processes may be exposed -wound culture with strep and MSSA -Plastic Surgery, seen by Dr. Stanley, wound is nonsurgical at this time. - wound care team nurse ff Cleanse posterior neck wound with normal saline pat dry, Apply Cavilon skin prep to periwound. Apply Bactroban 2% oint to wound base and cover with Maxorb ll cut to fit wound base ,secure with border gauze dressing. Change dressing daily or as needed for dislodgement. Sign and date all dressing Follow up with out patient wound center if DC -ID ff No clear evidence of osteomyelitis. antibiotics per ID change to Keflex 500 mg po q8 Skin Picking Disorder: Pt w/ compulsive skin picking resulting in above wound. - Psych ff- added Klonopin for anxiety Severe iron deficiency anemia-hemoglobin 7 admission, status post 2 units of packed red blood cells. per patiet knonw anemic- family history of Mediterranean tuype of anemia no abnormal vaginal bleeding- per patient cycle stopped over a year ago - no melena or hematochezia Folate and vitamin B12 within normal limits. received IV iron sucrose started on Ferrous sulfate 325 mg po bid OP ff up with PCP IVDU: Chronic, ongoing -change to po Ativan prn q 8- decreaee dose q12 - Cervical disc disease - Chronic neck pain: patient scheduled pain medication restarted -Continue Morphine ER 30 mg BID scheduled and percocet 10/325 mg as needed, verified in [facility] - ff by Dr. Oliver as OP- per patient - plan was for eventual neck surgery DVT Prophylaxis: SCD/Teds advise OP ff up with PCP- states she is planning find a new one
--- NOTE | 2017-11-04 10:14 | P.DS ---
Date of admission: 10/25/17 22:36 Primary care physician: Veronique Welsh MD Brief History from admission: This is a 47-year-old female with a PMH of IVDU who was brought to the ER by for evaluation of neck wound and psych eval. Pt has apparently been picking at her neck for several months, causing a significant wound to her posterior neck. +ongoing IVDU. No reported fever or chills. On arrival, BP 137/82, HR 138, O2 sat 95% on RA, Temp 99.5. W BC normal. Hemoglobin 7.0. ESR >140. Chemistry essentially unremarkable except for GFR 82. CRP 20. Urine Drug Screen positive for Opiates. MRI C-Spine w/ large soft tissue defect posteriorly extending from skull base to C7-T1, extensive subcutaneous tissues without abscess or dural involvement, no osteomyelitis, spinous processes may be exposed. S/p Vanc in ER DS: Diagnosis - Discharge Diagnosis (1) Open neck wound Status: Acute (2) Skin-picking disorder Status: Acute (3) IVDU (intravenous drug user) Status: Acute (4) Anemia Status: Acute DS: Medications - Discharge Medications Prescriptions: RX: cephalexin 500 mg PO Q8HR 7 Days cap ferrous sulfate [FeroSul] 325 mg PO BID@1200,1700 30 Days tab RX: mupirocin 1 applicatio TOPICAL DAILY 14 Days #1 g DS: Summary Hospital Course: 47 years old female Open Nape/posterior aspect of Neck Wound: extensive posterior cervical wound from self-picking, +exposed muscle/tissue. Hx of C-spine osteo and hardware placement. -MRI C-Spine w/ large soft tissue defect extending from skull base to C7-T1 with extensive involvement of subcutaneous tissues, no abscess or osteomyelitis , spinous processes may be exposed -wound culture with strep and MSSA -Plastic Surgery, seen by Dr. Teixeira, wound is nonsurgical at this time. - wound care team nurse ff Cleanse posterior neck wound with normal saline pat dry, Apply Cavilon skin prep to periwound. Apply Bactroban 2% oint to wound base and cover with Maxorb ll cut to fit wound base ,secure with border gauze dressing. Change dressing daily or as needed for dislodgement. Sign and date all dressing Follow up with out patient wound center if DC -ID ff No clear evidence of osteomyelitis. antibiotics per ID change to Keflex 500 mg po q8 Skin Picking Disorder: Pt w/ compulsive skin picking resulting in above wound. - Psych ff- added Klonopin for anxiety Severe iron deficiency anemia-hemoglobin 7 admission, status post 2 units of packed red blood cells. per patiet agnesw anemic- family history of Mediterranean tuype of anemia no abnormal vaginal bleeding- per patient cycle stopped over a year ago - no melena or hematochezia Folate and vitamin B12 within normal limits. received IV iron sucrose started on Ferrous sulfate 325 mg po bid OP ff up with PCP IVDU: Chronic, ongoing -change to po Ativan prn q 8- decreaee dose q12 - Cervical disc disease - Chronic neck pain: patient scheduled pain medication restarted -Continue Morphine ER 30 mg BID scheduled and percocet 10/325 mg as needed, verified in E Force - ff by Dr. Oliver as OP- per patient - plan was for eventual neck surgery DVT Prophylaxis: SCD/Teds advise OP ff up with PCP- states she is planning find a new one - Time Spent with Patient Total time spent providing and/or coordinating discharge services: Greater than 30 minutes Exam Vital signs: Vital Signs 11/03/17 16:00 11/03/17 19:58 11/04/17 00:00 Temperature 98.0 F 98.5 F 97.8 F Pulse Rate 104 H 115 H 89 Respiratory Rate 17 18 18 Blood Pressure 115/61 118/61 108/58 L Pulse Oximetry 97 97 98 11/04/17 02:29 11/04/17 03:32 11/04/17 08:00 Temperature 98.9 F 98.7 F Pulse Rate 114 H Respiratory Rate 18 Blood Pressure 122/67 Pulse Oximetry 99 94 L Intake & Output 11/03/17 11/04/17 11/04/17 18:59 06:59 18:59 Intake Total 660 / 660 720 / 720 Output Total 1100 / 1100 50 / 50 Balance -440 / -440 670 / 670 Weight 64.9 kg Intake: IV 240 / 240 240 / 240 Ancef Inj 2,000 MG In NS Inj 240 / 240 240 / 240 100 ML @ 100 mls/hr IV.SIG Q8H CJ Rx#:[id number] Oral 420 / 420 480 / 480 Output: Urine 1100 / 1100 50 / 50 Other: # Bowel Movements 0 0 Narrative: GENERAL:no distress SKIN: Warm and dry. Neck- nape area - very large stage III wound, , surrounding erythema . minimal drainage- clear,no foul odor CARDIOVASCULAR: Regular rate and rhythm. No murmur appreciated. RESPIRATORY: No accessory muscle use. Clear to auscultation. Breath sounds equal bilaterally. GASTROINTESTINAL: Abdomen soft, non-tender Normoactive bowel sounds x4. MUSCULOSKELETAL: No obvious deformities. Extremities without clubbing, cyanosis , or edema. Right UE- no cord palpable, swelling and erythema much improved + range of motion, induration resolved- soft NEUROLOGICAL: Awake and alert, oriented 3. No obvious cranial nerve deficits. Moving all extremities spontaneously. Results Procedures completed during hospitalization: none - Impressions ITS Impressions Cervical Spine MRI 10/25/17 17:07 CONCLUSION: 1. Large soft tissue defect posteriorly extending from just below the skull base to C7-T1 with extensive involvement subcutaneous tissues without deep space abscess or obvious dural involvement within the cervical cord. 2. I don't see a evidence for osteomyelitis in the vertebral bodies. 3. Spinous processes may be exposed. 4. Correlation with plain films and noncontrast CT scan would be of benefit. Upper Extremity Ultrasound 11/02/17 00:00 CONCLUSION: 1. No evidence of abscess or focal fluid collection. 2. 1.4 cm lymph node in the area of induration. 3. Partially occlusive thrombus in the superficial basilic vein. Discharge Plan - Discharge Disposition Patient Disposition: 01 Discharge Home - Discharge Condition Condition: Good - Discharge Order Discharge Orders: Discharge Order (Routine); Ordered 11/04/17 Ordered By: Samson Manjarrez - Discharge Details Anticipated Discharge Date: 11/04/17 - Physicians Team Primary Care Provider: Veronique Welsh Attending Provider: Samson Manjarrez Other Providers: Mitchell Teixeira MD ; Tung Naidu MD ; Lindy Israel ; Dina Carlos MD
[2017-11-04] MEDS: LORazepam 1 MG Tablet PO PRN (10:31)
[2017-11-04] MEDS: Ferrous Sulfate 325 MG Tablet PO SCH (13:09)
[2017-11-04 19:04] VITALS: BP 150/65; PULSE 90; TEMP 97.4; O2SAT 99
== END 2017-11-04 14:52 | disposition home or self-care (01) ==
LOC: NEPE 15:22 → NEDA 22:36 → N04 10-26 01:00
PROVIDERS: ADMIT Internal Medicine; ATTEND Internal Medicine